=== PATIENT | male | born 1945 | race African-American/Black ===

== ENCOUNTER → 2016-12-02 | Outpatient (CLI) | payer MEDICARE, BC ==
[2016-12-02 11:55] LABS: Calcium 9.5 mg/dL (8.4-10.2); Potassium 4.5 mmol/L (3.5-5.1); Total Bilirubin 0.9 mg/dL (0.2-1.3)
== END | disposition home or self-care (01) ==
LOC: LABWHC1 10:45
PROVIDERS: ATTEND Internal Medicine Endocrinology, Diabetes & Metabolism
DX: E11.65 Type 2 diabetes mellitus with hyperglycemia (principal)
CPT/HCPCS: 36415; 80053; 80061; 82043

== ENCOUNTER → 2016-12-29 | Outpatient (CLI) | payer MEDICARE, BC ==
[2016-12-29 08:55] LABS: Calcium 9.4 mg/dL (8.4-10.2); Potassium 4.3 mmol/L (3.5-5.1); Total Bilirubin 0.8 mg/dL (0.2-1.3); Total Protein 8.1 g/dL (6.3-8.2)
== END | disposition home or self-care (01) ==
LOC: LABWHC1 08:02
PROVIDERS: ATTEND Internal Medicine Endocrinology, Diabetes & Metabolism
DX: E11.65 Type 2 diabetes mellitus with hyperglycemia (principal)
CPT/HCPCS: 36415; 80053; 80061; 82043

== ENCOUNTER 2018-06-09 13:53 | Emergency (ER) | payer MEDICARE ==
[2018-06-09 14:04] VITALS: RESP 18
--- NOTE | 2018-06-09 16:23 | ED ---
General Adult HPI - General Source: patient, family, RN notes reviewed Mode of arrival: ambulatory Limitations: no limitations <Esau Smith - Last Filed: 06/09/18 17:55> <Terry Harper - Last Filed: 06/09/18 18:00> - General Chief complaint: Recheck/Abnormal Lab/Rx Stated complaint: leg swelling Time Seen by Provider: 06/09/18 15:58 - History of Present Illness Initial comments: This is a 72-year-old male presents emergency Department with chief complaint of bilateral leg swelling. Patient states she's had progressively worsening symptoms over the last several months has been seen PCP for this. 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 He currently takes Lasix 40 mg once daily. Does have some shortness of breath but denies any orthopnea. Patient states that he is concerned about his legs as he recently has had open blisters and sores. Patient states he is a known diabetic. Patient states that he attempted to get to his primary care physician but was unable to and advised to come emergency department. Patient states that he does have some renal dysfunction and CHF. Patient denies any chest pain, headache or dizziness. Patient reports no fever no chills (Esau Smith) - Related Data Home Medications Medication Instructions Recorded Confirmed Atorvastatin [Lipitor] 40 mg PO DAILY 11/13/16 06/09/18 Fenofibrate Nanocrystallized 145 mg PO DAILY 11/13/16 06/09/18 [Tricor] Levothyroxine Sodium [Synthroid] 75 mcg PO DAILY 11/13/16 06/09/18 Tamsulosin HCl [Flomax] 0.4 mg PO DAILY 11/13/16 06/09/18 Clotrimazole/Betamethasone Dip 1 applic TOPICAL BID 06/09/18 06/09/18 [Lotrisone Cream] Insulin NPH Hum/Reg Insulin Hm 40 unit SQ HS 06/09/18 06/09/18 [humuLIN 70/30 Kwikpen] Insulin NPH Hum/Reg Insulin Hm 58 unit SQ AC-BRKFST 06/09/18 06/09/18 [humuLIN 70/30 Kwikpen] Lansoprazole 30 mg PO DAILY 06/09/18 06/09/18 Losartan/Hydrochlorothiazide 1 tab PO DAILY 06/09/18 06/09/18 [Losartan-Hctz 100-25 mg Tab] Potassium Chloride [Klor-Con 20] 20 meq PO DAILY 06/09/18 06/09/18 metFORMIN HCL [metFORMIN HCL ER] 1,000 mg PO AC-SUPPER 06/09/18 06/09/18 Previous Rx's Medication Instructions Recorded Furosemide [Lasix] 40 mg PO DAILY #60 tab 11/16/16 Cephalexin [Keflex] 500 mg PO Q6HR #40 cap 06/09/18 Allergies Allergy/AdvReac Type Severity Reaction Status Date / Time No Known Allergies Allergy Verified 06/09/18 15:53 Review of Systems ROS Other: All systems not noted in ROS Statement are negative. <Esau Smith - Last Filed: 06/09/18 17:55> ROS Other: All systems not noted in ROS Statement are negative. <Terry Harper - Last Filed: 06/09/18 18:00> ROS Statement: Those systems with pertinent positive or pertinent negative responses have been documented in the HPI. Past Medical History Past Medical History: Hyperlipidemia, Hypertension, Thyroid Disorder History of Any Multi-Drug Resistant Organisms: None Reported Past Surgical History: No Surgical Hx Reported Past Psychological History: No Psychological Hx Reported Smoking Status: Former smoker Past Alcohol Use History: None Reported Past Drug Use History: None Reported <Esau Smith - Last Filed: 06/09/18 17:55> General Exam Limitations: no limitations General appearance: alert, in no apparent distress Head exam: Present: atraumatic, normocephalic, normal inspection Eye exam: Present: normal appearance, PERRL, EOMI. Absent: scleral icterus, conjunctival injection, periorbital swelling Neck exam: Present: normal inspection, full ROM. Absent: tenderness, meningismus, lymphadenopathy Respiratory exam: Present: normal lung sounds bilaterally. Absent: respiratory distress, wheezes, rales, rhonchi, stridor Cardiovascular Exam: Present: regular rate, normal rhythm, normal heart sounds. Absent: systolic murmur, diastolic murmur, rubs, gallop, clicks GI/Abdominal exam: Present: soft, normal bowel sounds. Absent: distended, tenderness, guarding, rebound, rigid Extremities exam: Present: pedal edema, other (Extensive lower extremity edema, legs are from with palpation there are open sores and blisters noted pain pedal pulses equal bilaterally) Skin exam: Present: warm, dry, intact, normal color. Absent: rash <Esau Smith - Last Filed: 06/09/18 17:55> Vital Signs 06/09/18 13:59 Temperature 97.9 F Pulse Rate 91 Respiratory 18 Rate Blood Pressure 170/71 O2 Sat by Pulse 99 Oximetry Medical Decision Making - Lab Data Result diagrams: 06/09/18 16:12 06/09/18 16:12 <Esau Smith - Last Filed: 06/09/18 17:55> - Lab Data Result diagrams: 06/09/18 16:12 06/09/18 16:12 <Terry Harper - Last Filed: 06/09/18 18:00> - Medical Decision Making This is a 72-year-old male presented for leg swelling. Patient is found to have extensive edema, mildly elevated BNP and new onset 8.. Patient has known renal failure and is currently being referred to nephrology and cardiology. Patient was offered admission for IV antibiotics, evaluation and nephrology evaluation. Patient is refusing admission. Patient is requesting antibiotics for his legs. (Esau Smith) Patient was evaluated by myself, Dr. Harper. Patient resting comfortably in bed. Patient and family are updated on multiple concerns. This includes new- onset atrial fibrillation and indeterminate troponin. As well as edema and urinary tract infection. Patient is advised admission for cardiology evaluation , possible anticoagulation, repeat heart testing and antibiotics as well as diuresis. Patient refuses admission. Family members are present. They agree patient is able to make his own decisions. Patient refuses admission and will leave AGAINST MEDICAL ADVICE. Patient states he is only here to receive antibiotics for his leg sores. Patient does have moderate bilateral edema with mild ulcerations in several spots. There is no obvious infection of the leg over patient can benefit from antibiotics with evidence of urinary tract infection. Patient and family are agreeable to close follow-up with primary care physician and cardiology. (Terry Harper) - Lab Data Lab Results 06/09/18 06/09/18 06/09/18 Range/Units 16:12 16:12 16:12 WBC 6.5 (3.8-10.6) k/uL RBC 3.70 L (4.30-5.90) m/uL Hgb 10.4 L (13.0-17.5) gm/dL Hct 33.3 L (39.0-53.0) % MCV 90.1 (80.0-100.0) fL MCH 28.2 (25.0-35.0) pg MCHC 31.3 (31.0-37.0) g/dL RDW 17.5 H (11.5-15.5) % Plt Count 331 (150-450) k/uL Neutrophils % 64 % Lymphocytes % 22 % Monocytes % 6 % Eosinophils % 5 % Basophils % 2 % Neutrophils # 4.1 (1.3-7.7) k/uL Lymphocytes # 1.4 (1.0-4.8) k/uL Monocytes # 0.4 (0-1.0) k/uL Eosinophils # 0.3 (0-0.7) k/uL Basophils # 0.1 (0-0.2) k/uL Hypochromasia Moderate Anisocytosis Slight Sodium 143 (137-145) mmol/L Potassium 4.8 (3.5-5.1) mmol/L Chloride 107 (98-107) mmol/L Carbon Dioxide 25 (22-30) mmol/L Anion Gap 11 mmol/L BUN 51 H (9-20) mg/dL Creatinine 2.50 H (0.66-1.25) mg/dL Est GFR (CKD-EPI)AfAm 29 (>60 ml/min/1.73 sqM) Est GFR (CKD-EPI)NonAf 25 (>60 ml/min/1.73 sqM) Glucose 119 H (74-99) mg/dL Uric Acid 7.9 (3.5-8.5) mg/dL Calcium 9.4 (8.4-10.2) mg/dL Phosphorus 3.0 (2.5-4.5) mg/dL Magnesium 1.7 (1.6-2.3) mg/dL Total Bilirubin 1.9 H (0.2-1.3) mg/dL AST 151 H (17-59) U/L ALT 148 H (21-72) U/L Alkaline Phosphatase 140 H (38-126) U/L Troponin I (0.000-0.034) ng/mL NT-Pro-B Natriuret Pep 1390 pg/mL Total Protein 7.3 (6.3-8.2) g/dL Albumin 3.8 (3.5-5.0) g/dL Urine Color Urine Appearance (Clear) Urine pH (5.0-8.0) Ur Specific [place] (1.001-1.035) Urine Protein (Negative) Urine Glucose (UA) (Negative) Urine Ketones (Negative) Urine Blood (Negative) Urine Nitrite (Negative) Urine Bilirubin (Negative) Urine Urobilinogen (<2.0) mg/dL Ur Leukocyte Esterase (Negative) Urine RBC (0-5) /hpf Urine WBC (0-5) /hpf Urine WBC Clumps (None) /hpf Urine Bacteria (None) /hpf Cellular Casts (0) /lpf 06/09/18 06/09/18 Range/Units 16:12 17:20 WBC (3.8-10.6) k/uL RBC (4.30-5.90) m/uL Hgb (13.0-17.5) gm/dL Hct (39.0-53.0) % MCV (80.0-100.0) fL MCH (25.0-35.0) pg MCHC (31.0-37.0) g/dL RDW (11.5-15.5) % Plt Count (150-450) k/uL Neutrophils % % Lymphocytes % % Monocytes % % Eosinophils % % Basophils % % Neutrophils # (1.3-7.7) k/uL Lymphocytes # (1.0-4.8) k/uL Monocytes # (0-1.0) k/uL Eosinophils # (0-0.7) k/uL Basophils # (0-0.2) k/uL Hypochromasia Anisocytosis Sodium (137-145) mmol/L Potassium (3.5-5.1) mmol/L Chloride (98-107) mmol/L Carbon Dioxide (22-30) mmol/L Anion Gap mmol/L BUN (9-20) mg/dL Creatinine (0.66-1.25) mg/dL Est GFR (CKD-EPI)AfAm (>60 ml/min/1.73 sqM) Est GFR (CKD-EPI)NonAf (>60 ml/min/1.73 sqM) Glucose (74-99) mg/dL Uric Acid (3.5-8.5) mg/dL Calcium (8.4-10.2) mg/dL Phosphorus (2.5-4.5) mg/dL Magnesium (1.6-2.3) mg/dL Total Bilirubin (0.2-1.3) mg/dL AST (17-59) U/L ALT (21-72) U/L Alkaline Phosphatase (38-126) U/L Troponin I 0.076 H* (0.000-0.034) ng/mL NT-Pro-B Natriuret Pep pg/mL Total Protein (6.3-8.2) g/dL Albumin (3.5-5.0) g/dL Urine Color Yellow Urine Appearance Turbid (Clear) Urine pH 7.5 (5.0-8.0) Ur Specific [place] 1.012 (1.001-1.035) Urine Protein 3+ H (Negative) Urine Glucose (UA) Negative (Negative) Urine Ketones Negative (Negative) Urine Blood Moderate H (Negative) Urine Nitrite Negative (Negative) Urine Bilirubin Negative (Negative) Urine Urobilinogen 3.0 (<2.0) mg/dL Ur Leukocyte Esterase Large H (Negative) Urine RBC 8 H (0-5) /hpf Urine WBC 82 H (0-5) /hpf Urine WBC Clumps Many H (None) /hpf Urine Bacteria Many H (None) /hpf Cellular Casts 38 (0) /lpf Disposition Time of Disposition: 17:57 <Esau Smith - Last Filed: 06/09/18 17:55> <Terry Harper - Last Filed: 06/09/18 18:00> Clinical Impression: Bilateral lower extremity edema, Open wound, lower leg, A-fib, CHF (congestive heart failure), Chronic renal failure Disposition: Left Against Medical Advice Condition: Stable Instructions: Cellulitis (ED) Additional Instructions: Please return to the Emergency Department if symptoms worsen or any other concerns. Prescriptions: Cephalexin [Keflex] 500 mg PO Q6HR #40 cap Referrals: Harris Vidales DO [Primary Care Provider] - 1-2 days Rajesh Simmons MD [STAFF PHYSICIAN] - 1-2 days
[2018-06-09 16:34] LABS: Anisocytosis Slight; Basophils # (A) 0.1 k/uL (0-0.2); Basophils % (A) 2 %; Eosinophils # (A) 0.3 k/uL (0-0.7); Eosinophils % (A) 5 %; HCT 33.3 % (39.0-53.0); HGB 10.4 gm/dL (13.0-17.5); Hypochromasia Moderate; Lymphocytes # (A) 1.4 k/uL (1.0-4.8); Lymphocytes % (A) 22 %; MCH 28.2 pg (25.0-35.0); MCHC 31.3 g/dL (31.0-37.0); MCV 90.1 fL (80.0-100.0); Mean Platelet Volume 8.9; Monocytes # (A) 0.4 k/uL (0-1.0); Monocytes % (A) 6 %; Neutrophils # (A) 4.1 k/uL (1.3-7.7); Neutrophils % (A) 64 %; Platelet Count 331 k/uL (150-450); RDW 17.5 % (11.5-15.5); WBC 6.5 k/uL (3.8-10.6)
[2018-06-09 16:36] LABS: Albumin 3.8 g/dL (3.5-5.0); Calcium 9.4 mg/dL (8.4-10.2); Magnesium 1.7 mg/dL (1.6-2.3); Potassium 4.8 mmol/L (3.5-5.1); Total Bilirubin 1.9 mg/dL (0.2-1.3); Total Protein 7.3 g/dL (6.3-8.2); Uric Acid 7.9 mg/dL (3.5-8.5)
--- NOTE | 2018-06-09 16:44 | XR ---
EXAMINATION TYPE: XR chest 2V DATE OF EXAM: 06/09/2018 COMPARISON: Chest x-ray November 13, 2016. HISTORY: Shortness of breath TECHNIQUE: Frontal and lateral views of the chest are obtained. FINDINGS: There is no focal air space opacity, pleural effusion, or pneumothorax seen. The cardiac silhouette size is enlarged. The osseous structures are intact. IMPRESSION: Cardiomegaly without acute pulmonary process.
--- NOTE | 2018-06-09 17:29 | US ---
EXAMINATION TYPE: US venous doppler duplex LE DATE OF EXAM: 06/09/2018 5:09 PM COMPARISON: US CLINICAL HISTORY: Increasing bilateral leg edema and present x 7 months . SIDE PERFORMED: Bilateral TECHNIQUE: The lower extremity deep venous system is examined utilizing real time linear array sonog lc with graded compression, doppler sonography and color-flow sonography. VESSELS IMAGED: Common Femoral Vein Deep Femoral Vein Greater Saphenous Vein * Femoral Vein Popliteal Vein Small Saphenous Vein * Proximal Calf Veins (* superficial vessels) Pulsatile Venous Doppler waveforms are noted bilaterally and suggests Congestive Heart Failure. Edema channels are noted anteriorly from popliteal fossa and distally, and bilaterally. Right Leg: Negative for DVT Left Leg: Negative for DVT IMPRESSION: Negative exam. No evidence of deep venous thrombosis in both legs.
[2018-06-09 17:35] LABS: Appearance,Urine Turbid (Clear); Bacteria,Urine Many /hpf; Bilirubin,Urine Negative (Negative); Blood,Urine Moderate (Negative); Cellular Casts,Urine 38 /lpf (0); Color,Urine Yellow; Glucose,Urine (UA) Negative (Negative); Ketones,Urine Negative (Negative); Leukocyte Esterase,Urine Large (Negative); Nitrite,Urine Negative (Negative); PH, Urine 7.5 (5.0-8.0); Protein,Urine 3+ (Negative); RBC,Urine 8 /hpf (0-5); Specific Gravity,Urine 1.012 (1.001-1.035); WBC,Urine 82 /hpf (0-5)
[2018-06-09] MEDS ORDERED: FUROSEMIDE 10 MG/ML 4 ML VIAL IV STA (17:54)
[2018-06-09 18:15] VITALS: BP 175/73; PULSE 75; TEMP 97
== END 2018-06-09 18:14 | disposition left against medical advice (07) ==
LOC: EC 13:53
DX: S81.802A Unspecified open wound, left lower leg, initial encounter (principal); S81.801A Unspecified open wound, right lower leg, initial encounter; M79.89 Other specified soft tissue disorders; I48.91 Unspecified atrial fibrillation; I13.0 Hypertensive heart and chronic kidney disease with heart failure and stage 1 through stage 4 chronic kidney disease, or unspecified chronic kidney disease; N18.9 Chronic kidney disease, unspecified; I50.9 Heart failure, unspecified; E78.5 Hyperlipidemia, unspecified; E07.9 Disorder of thyroid, unspecified; Z87.891 Personal history of nicotine dependence; Z79.4 Long term (current) use of insulin; Z79.899 Other long term (current) drug therapy
CPT/HCPCS: 99284 ×2; 96374 ×2; 36415; 83880; 80053; 83735; 84100; 84550; 84484; 85025; 81001; 71046; 93970; J1940

== ENCOUNTER → 2018-07-01 | Outpatient (CLI) | payer MEDICARE ==
--- NOTE | 2018-07-01 16:56 | US ---
EXAMINATION TYPE: US kidneys/renal and bladder DATE OF EXAM: 07/01/2018 COMPARISON: US CLINICAL HISTORY: CKD Stage IV, N18.4. EXAM MEASUREMENTS: Right Kidney: 12.0 x 8.3 x 5.1 cm Left Kidney: 12.0 x 6.6 x 6.4 cm Post Void Residual Volume: 428.4 mL Urinary bladder is sonolucent. Posterior wall appears normal. Right Kidney: No hydronephrosis or masses seen Left Kidney: No hydronephrosis or masses seen Bladder: overly distended Bilateral Jets seen: no, only small left ureteral jet was seen Normal Post Void Residual: no, as > 50ml IMPRESSION: 1. Normal retroperitoneal ultrasound
== END | disposition home or self-care (01) ==
LOC: RADUSWWP 08:44
PROVIDERS: ATTEND Internal Medicine
DX: N18.4 Chronic kidney disease, stage 4 (severe) (principal)
CPT/HCPCS: 76770

== ENCOUNTER → 2018-07-13 | Outpatient (CLI) | payer MEDICARE ==
[2018-07-13 11:37] LABS: Appearance,Urine Turbid (Clear); Bacteria,Urine Many /hpf; Bilirubin,Urine Negative (Negative); Blood,Urine Moderate (Negative); Color,Urine Yellow; Glucose,Urine (UA) Negative (Negative); Ketones,Urine Negative (Negative); Leukocyte Esterase,Urine Large (Negative); Nitrite,Urine Negative (Negative); PH, Urine 7.5 (5.0-8.0); Protein,Urine 3+ (Negative); RBC,Urine 27 /hpf (0-5); Specific Gravity,Urine 1.015 (1.001-1.035); WBC,Urine >182 /hpf (0-5)
[2018-07-13 11:42] LABS: Calcium 9.2 mg/dL (8.4-10.2); Magnesium 1.7 mg/dL (1.6-2.3); Potassium 4.8 mmol/L (3.5-5.1); Uric Acid 8.1 mg/dL (3.5-8.5)
[2018-07-13 11:49] LABS: Anisocytosis Slight; Basophils # (A) 0.1 k/uL (0-0.2); Basophils % (A) 1 %; Eosinophils # (A) 0.2 k/uL (0-0.7); Eosinophils % (A) 4 %; HCT 30.7 % (39.0-53.0); HGB 9.6 gm/dL (13.0-17.5); Hypochromasia Marked; Lymphocytes % (A) 16 %; MCH 26.9 pg (25.0-35.0); MCHC 31.2 g/dL (31.0-37.0); MCV 86.3 fL (80.0-100.0); Mean Platelet Volume 8.3; Monocytes # (A) 0.5 k/uL (0-1.0); Monocytes % (A) 7 %; Neutrophils # (A) 4.6 k/uL (1.3-7.7); Neutrophils % (A) 70 %; Platelet Count 305 k/uL (150-450); RBC 3.56 m/uL (4.30-5.90); RDW 16.9 % (11.5-15.5); WBC 6.5 k/uL (3.8-10.6)
[2018-07-13 16:32] LABS: Iron Saturation 10.49 (15.00-50.00)
[2018-07-13 17:30] LABS: Parathyroid Hormone Intact 130.8 pg/mL (14.0-72.0)
== END | disposition home or self-care (01) ==
LOC: LABWHC1 10:37
PROVIDERS: ATTEND Internal Medicine
DX: D64.9 Anemia, unspecified (principal); E55.9 Vitamin D deficiency, unspecified; N25.81 Secondary hyperparathyroidism of renal origin; M10.9 Gout, unspecified; N39.0 Urinary tract infection, site not specified
CPT/HCPCS: 36415; 80048; 81001; 83540; 83550; 83735; 83970; 84100; 84550; 85025

== ENCOUNTER → 2018-12-23 | Outpatient (CLI) | payer MEDICARE ==
[2018-12-23 11:02] LABS: Anisocytosis Slight; HCT 29.9 % (39.0-53.0); HGB 9.6 gm/dL (13.0-17.5); Hypochromasia Slight; MCH 29.9 pg (25.0-35.0); MCV 93.2 fL (80.0-100.0); Mean Platelet Volume 8.8; Platelet Count 220 k/uL (150-450); RDW 16.2 % (11.5-15.5); WBC 6.5 k/uL (3.8-10.6)
[2018-12-23 14:44] LABS: Erythrocyte Sedimentation Rate 57 mm/hr (0-15)
[2018-12-23 16:15] LABS: Rheumatoid Factor 13 IU/mL (0-15)
[2018-12-23 16:26] LABS: Protein, Total 6.7 g/dL (6.2-8.2); Vitamin D 25 Hydroxy 36.9 ng/mL (30.0-100.0)
[2018-12-23 16:27] LABS: Albumin/Globulin Ratio 1.48 (1.20-2.10); Anion Gap 9.1 mmol/L (4.00-12.00); Calcium 9.2 mg/dL (8.7-10.3); Carbon Dioxide 25.9 mmol/L (21.6-31.8); Globulin 2.7 g/dL (1.6-3.3); Phosphorus 4.2 mg/dL (2.4-5.1); Potassium 4.6 mmol/L (3.5-5.5); Total Protein 6.7 g/dL (6.2-8.2)
[2018-12-23 16:55] LABS: DNA Double-Stranded POSITIVE (NEGATIVE)
[2018-12-23 17:02] LABS: Parathyroid Hormone Intact 152.6 pg/mL (14.0-72.0)
[2018-12-23 21:05] LABS: Creatinine,Urine Random 47.4 mg/dL
[2018-12-23 21:10] LABS: Total Protein,Urine Random 81.5 mg/dL (0.0-13.5)
[2018-12-23 21:59] LABS: Hepatitis B Surface AB- Quant 3.5 mIU/mL; Hepatitis C IgG Antibody Non-Reactive (Non-Reactive)
[2018-12-24 12:46] LABS: ANA Pattern Homogeneous
[2018-12-24 13:04] LABS: Anti-Glomerular Basement Memb 4 UNITS (0-20)
[2018-12-24 13:51] LABS: C-ANCA <1:20 Titer (<1:20); P-ANCA <1:20 Titer (<1:20)
[2018-12-24 13:56] LABS: Albumin 3.48 g/dL (3.80-4.90); Gamma Globulin 1.28 g/dL (0.70-1.50)
== END | disposition home or self-care (01) ==
LOC: LABWHC1 09:38
PROVIDERS: ATTEND Internal Medicine
DX: E55.9 Vitamin D deficiency, unspecified (principal); E61.1 Iron deficiency; N18.4 Chronic kidney disease, stage 4 (severe); D63.1 Anemia in chronic kidney disease
CPT/HCPCS: 36415; 80053; 82306; 82570; 83516; 83970; 84100; 84156; 84165; 84166; 85027; 85652; 86038; 86039; 86160; 86225; 86255; 86335; 86431; 86706; 86803; 87340

== ENCOUNTER → 2018-12-24 | Outpatient (CLI) | payer MEDICARE ==
--- NOTE | 2018-12-24 07:30 | US ---
EXAMINATION TYPE: US venous doppler duplex LE LT DATE OF EXAM: 12/24/2018 7:15 AM COMPARISON: NONE CLINICAL HISTORY: I82.401 EDEMA LT LEG. Left leg swelling x 1 year SIDE PERFORMED: Left TECHNIQUE: The lower extremity deep venous system is examined utilizing real time linear array sonog lc with graded compression, doppler sonography and color-flow sonography. VESSELS IMAGED: External Iliac Vein (EIV) Common Femoral Vein Deep Femoral Vein Greater Saphenous Vein * Femoral Vein Popliteal Vein Small Saphenous Vein * Proximal Calf Veins (* superficial vessels) Left Leg: Appears negative for DVT IMPRESSION: No evidence for DVT at this time.
== END | disposition home or self-care (01) ==
LOC: RADUSWWP 06:52
PROVIDERS: ATTEND Internal Medicine
DX: I82.401 Acute embolism and thrombosis of unspecified deep veins of right lower extremity (principal)

== ENCOUNTER → 2018-12-29 | Outpatient (CLI) | payer MEDICARE ==
[2018-12-29 11:46] LABS: Reticulocyte % 1.6 % (0.5-2.0)
[2018-12-29 15:58] LABS: Iron Saturation 20.37 (15.00-50.00)
[2018-12-29 21:42] LABS: Hemoglobin A1C 8.2 % (4.0-6.0)
== END | disposition home or self-care (01) ==
LOC: LABWHC1 10:02
PROVIDERS: ATTEND Family Medicine
DX: E11.9 Type 2 diabetes mellitus without complications (principal); N19 Unspecified kidney failure
CPT/HCPCS: 36415; 82043; 82164; 82570; 82728; 83036; 83540; 83550; 85045; 86431

== ENCOUNTER 2019-11-04 02:17 | Inpatient (IN) | payer MEDICARE ==
[2019-11-04] MEDS ORDERED: MORPHINE SULFATE 4 MG/ML SYRINGE IV STA (02:52)
--- NOTE | 2019-11-04 02:54 | ED ---
SOB HPI - General Chief Complaint: Shortness of Breath Stated Complaint: Diff Breathing Time Seen by Provider: 11/04/19 02:35 Source: EMS Mode of arrival: EMS Limitations: no limitations - History of Present Illness Initial Comments: This patient is a 74-year-old man who presents with complaint of dyspnea. States that this been coming on and getting worse over the course of tonight. Patient denies fever or chills. Denies chest pain but states that he does have some right-sided mid back pain. He notes the pain gets worse with lying on that side of his back or certain position. No diaphoresis, no nausea or vomiting. MD Complaint: shortness of breath -: hour(s) Radiation: back Severity: moderate Quality: aching Consistency: constant Improves With: nothing Worsens With: movement Known History Of: congestive heart failure, other (Cirrhosis and ascites) - Related Data Home Oxygen Therapy: No Home Medications Medication Instructions Recorded Confirmed Atorvastatin [Lipitor] 40 mg PO DAILY 11/13/16 06/09/18 Fenofibrate Nanocrystallized 145 mg PO DAILY 11/13/16 06/09/18 [Tricor] Levothyroxine Sodium [Synthroid] 75 mcg PO DAILY 11/13/16 06/09/18 Tamsulosin HCl [Flomax] 0.4 mg PO DAILY 11/13/16 06/09/18 Clotrimazole/Betamethasone Dip 1 applic TOPICAL BID 06/09/18 06/09/18 [Lotrisone Cream] Insulin NPH Hum/Reg Insulin Hm 40 unit SQ HS 06/09/18 06/09/18 [humuLIN 70/30 Kwikpen] Insulin NPH Hum/Reg Insulin Hm 58 unit SQ AC-BRKFST 06/09/18 06/09/18 [humuLIN 70/30 Kwikpen] Lansoprazole 30 mg PO DAILY 06/09/18 06/09/18 Losartan/Hydrochlorothiazide 1 tab PO DAILY 06/09/18 06/09/18 [Losartan-Hctz 100-25 mg Tab] Potassium Chloride [Klor-Con 20] 20 meq PO DAILY 06/09/18 06/09/18 metFORMIN HCL [metFORMIN HCL ER] 1,000 mg PO AC-SUPPER 06/09/18 06/09/18 Previous Rx's Medication Instructions Recorded Furosemide [Lasix] 40 mg PO DAILY #60 tab 11/16/16 Cephalexin [Keflex] 500 mg PO Q6HR #40 cap 06/09/18 Allergies Allergy/AdvReac Type Severity Reaction Status Date / Time No Known Allergies Allergy Verified 11/04/19 02:22 Review of Systems ROS Statement: Those systems with pertinent positive or pertinent negative responses have been documented in the HPI. ROS Other: All systems not noted in ROS Statement are negative. Constitutional: Denies: fever, chills Respiratory: Reports: dyspnea. Denies: cough, wheezes Cardiovascular: Denies: chest pain, palpitations, orthopnea, edema, syncope Gastrointestinal: Denies: abdominal pain, vomiting, diarrhea, melena, hematochezia Genitourinary: Reports: hematuria. Denies: dysuria Musculoskeletal: Reports: as per HPI, back pain Skin: Denies: rash Neurological: Denies: headache, weakness, numbness Past Medical History Past Medical History: Dialysis, Hyperlipidemia, Hypertension, Thyroid Disorder History of Any Multi-Drug Resistant Organisms: None Reported Past Surgical History: No Surgical Hx Reported Past Psychological History: No Psychological Hx Reported Smoking Status: Former smoker Past Alcohol Use History: None Reported Past Drug Use History: None Reported General Exam Limitations: no limitations General appearance: alert, in no apparent distress Head exam: Present: atraumatic, normocephalic Eye exam: Present: normal appearance. Absent: scleral icterus, conjunctival injection ENT exam: Present: normal oropharynx Respiratory exam: Present: normal lung sounds bilaterally. Absent: respiratory distress, wheezes, rales, rhonchi, stridor Cardiovascular Exam: Present: regular rate, normal rhythm, normal heart sounds. Absent: systolic murmur, diastolic murmur, rubs, gallop GI/Abdominal exam: Present: soft. Absent: distended, tenderness, guarding, rebound, mass Rectal exam: Present: normal inspection, normal rectal tone. Absent: black stool, bloody stool, fecal impaction, hemorrhoids, mass, tenderness Extremities exam: Present: normal inspection, normal capillary refill. Absent: pedal edema, calf tenderness Back exam: Present: normal inspection. Absent: CVA tenderness (R), CVA tenderness (L) Neurological exam: Present: alert Skin exam: Present: warm, dry, intact, normal color. Absent: rash Course Vital Signs 11/04/19 11/04/19 11/04/19 02:19 03:00 03:30 Temperature 97.6 F Pulse Rate 79 80 75 Respiratory 20 20 22 Rate Blood Pressure 157/69 156/70 134/49 O2 Sat by Pulse 95 96 97 Oximetry 11/04/19 11/04/19 11/04/19 04:00 04:30 05:00 Temperature Pulse Rate 76 73 72 Respiratory 23 23 22 Rate Blood Pressure 134/49 161/76 168/81 O2 Sat by Pulse 98 98 100 Oximetry 11/04/19 11/04/19 06:26 06:36 Temperature 97.5 F L 97.5 F L Pulse Rate 72 72 Respiratory 20 20 Rate Blood Pressure 151/66 142/69 O2 Sat by Pulse 98 96 Oximetry Medical Decision Making - Lab Data Result diagrams: 11/04/19 03:43 11/04/19 02:46 Lab Results 11/04/19 11/04/19 11/04/19 Range/Units 02:46 02:46 02:46 WBC 8.5 (3.8-10.6) k/uL RBC 2.26 L (4.30-5.90) m/uL Hgb 6.9 L* D (13.0-17.5) gm/dL Hct 22.4 L (39.0-53.0) % MCV 98.9 (80.0-100.0) fL MCH 30.6 (25.0-35.0) pg MCHC 30.9 L (31.0-37.0) g/dL RDW 15.1 (11.5-15.5) % Plt Count 321 (150-450) k/uL Neutrophils % 68 % Lymphocytes % 14 % Monocytes % 9 % Eosinophils % 5 % Basophils % 1 % Neutrophils # 5.8 (1.3-7.7) k/uL Lymphocytes # 1.2 (1.0-4.8) k/uL Monocytes # 0.8 (0-1.0) k/uL Eosinophils # 0.5 (0-0.7) k/uL Basophils # 0.1 (0-0.2) k/uL Hypochromasia Moderate Macrocytosis Slight PT (9.0-12.0) sec INR (<1.2) APTT (22.0-30.0) sec Sodium 137 (137-145) mmol/L Potassium 5.2 H (3.5-5.1) mmol/L Chloride 102 (98-107) mmol/L Carbon Dioxide 19 L (22-30) mmol/L Anion Gap 16 mmol/L BUN 83 H (9-20) mg/dL Creatinine 5.95 H (0.66-1.25) mg/dL Est GFR (CKD-EPI)AfAm 10 (>60 ml/min/1.73 sqM) Est GFR (CKD-EPI)NonAf 9 (>60 ml/min/1.73 sqM) Glucose 310 H (74-99) mg/dL Calcium 9.4 (8.4-10.2) mg/dL Total Bilirubin 0.5 (0.2-1.3) mg/dL AST 20 (17-59) U/L ALT 21 (21-72) U/L Alkaline Phosphatase 55 (38-126) U/L Troponin I (0.000-0.034) ng/mL NT-Pro-B Natriuret Pep 1550 pg/mL Total Protein 6.9 (6.3-8.2) g/dL Albumin 4.2 (3.5-5.0) g/dL Amylase (30-110) U/L Lipase (23-300) U/L Stool Occult Blood (Negative) Blood Type Blood Type Recheck Bld Type Recheck Status Antibody Screen Crossmatch Spec Expiration Date 11/04/19 11/04/19 11/04/19 Range/Units 02:46 02:46 02:46 WBC (3.8-10.6) k/uL RBC (4.30-5.90) m/uL Hgb (13.0-17.5) gm/dL Hct (39.0-53.0) % MCV (80.0-100.0) fL MCH (25.0-35.0) pg MCHC (31.0-37.0) g/dL RDW (11.5-15.5) % Plt Count (150-450) k/uL Neutrophils % % Lymphocytes % % Monocytes % % Eosinophils % % Basophils % % Neutrophils # (1.3-7.7) k/uL Lymphocytes # (1.0-4.8) k/uL Monocytes # (0-1.0) k/uL Eosinophils # (0-0.7) k/uL Basophils # (0-0.2) k/uL Hypochromasia Macrocytosis PT 12.2 H (9.0-12.0) sec INR 1.2 H (<1.2) APTT 23.0 (22.0-30.0) sec Sodium (137-145) mmol/L Potassium (3.5-5.1) mmol/L Chloride (98-107) mmol/L Carbon Dioxide (22-30) mmol/L Anion Gap mmol/L BUN (9-20) mg/dL Creatinine (0.66-1.25) mg/dL Est GFR (CKD-EPI)AfAm (>60 ml/min/1.73 sqM) Est GFR (CKD-EPI)NonAf (>60 ml/min/1.73 sqM) Glucose (74-99) mg/dL Calcium (8.4-10.2) mg/dL Total Bilirubin (0.2-1.3) mg/dL AST (17-59) U/L ALT (21-72) U/L Alkaline Phosphatase (38-126) U/L Troponin I 0.049 H* (0.000-0.034) ng/mL NT-Pro-B Natriuret Pep pg/mL Total Protein (6.3-8.2) g/dL Albumin (3.5-5.0) g/dL Amylase 45 (30-110) U/L Lipase 156 (23-300) U/L Stool Occult Blood (Negative) Blood Type Blood Type Recheck Bld Type Recheck Status Antibody Screen Crossmatch Spec Expiration Date 11/04/19 11/04/19 11/04/19 Range/Units 03:43 03:43 06:40 WBC 9.4 (3.8-10.6) k/uL RBC 2.25 L (4.30-5.90) m/uL Hgb 7.0 L (13.0-17.5) gm/dL Hct 21.6 L (39.0-53.0) % MCV 96.1 (80.0-100.0) fL MCH 31.0 (25.0-35.0) pg MCHC 32.3 (31.0-37.0) g/dL RDW 15.2 (11.5-15.5) % Plt Count 296 (150-450) k/uL Neutrophils % % Lymphocytes % % Monocytes % % Eosinophils % % Basophils % % Neutrophils # (1.3-7.7) k/uL Lymphocytes # (1.0-4.8) k/uL Monocytes # (0-1.0) k/uL Eosinophils # (0-0.7) k/uL Basophils # (0-0.2) k/uL Hypochromasia Slight Macrocytosis PT (9.0-12.0) sec INR (<1.2) APTT (22.0-30.0) sec Sodium (137-145) mmol/L Potassium (3.5-5.1) mmol/L Chloride (98-107) mmol/L Carbon Dioxide (22-30) mmol/L Anion Gap mmol/L BUN (9-20) mg/dL Creatinine (0.66-1.25) mg/dL Est GFR (CKD-EPI)AfAm (>60 ml/min/1.73 sqM) Est GFR (CKD-EPI)NonAf (>60 ml/min/1.73 sqM) Glucose (74-99) mg/dL Calcium (8.4-10.2) mg/dL Total Bilirubin (0.2-1.3) mg/dL AST (17-59) U/L ALT (21-72) U/L Alkaline Phosphatase (38-126) U/L Troponin I (0.000-0.034) ng/mL NT-Pro-B Natriuret Pep pg/mL Total Protein (6.3-8.2) g/dL Albumin (3.5-5.0) g/dL Amylase (30-110) U/L Lipase (23-300) U/L Stool Occult Blood Negative (Negative) Blood Type O Positive Blood Type Recheck O Pos Bld Type Recheck Status No Antibody Screen NEGATIVE Crossmatch See Detail Spec Expiration Date 11/07/2019 - 5820 - EKG Data -: EKG Interpreted by Pa EKG shows normal: sinus rhythm, axis (Normal), intervals (MD interval 248 ms, prolonged consistent with a first-degree AV block. QTC 475 ms, prolonged. QRS duration 90 ms, normal.), QRS complexes (Normal), ST-T waves (Normal) Rate: normal (Rate 80 bpm) Disposition Clinical Impression: Anemia, Dyspnea, Elevated troponin Disposition: ADMITTED IP TO THIS [facility] Condition: Poor Is patient prescribed a controlled substance at d/c from ED?: No Referrals: Harris Vidales DO [Primary Care Provider] - 1-2 days
[2019-11-04 02:58] LABS: Basophils # (A) 0.1 k/uL (0-0.2); Basophils % (A) 1 %; Eosinophils # (A) 0.5 k/uL (0-0.7); Eosinophils % (A) 5 %; HCT 22.4 % (39.0-53.0); Hypochromasia Moderate; Lymphocytes # (A) 1.2 k/uL (1.0-4.8); Lymphocytes % (A) 14 %; MCH 30.6 pg (25.0-35.0); MCHC 30.9 g/dL (31.0-37.0); MCV 98.9 fL (80.0-100.0); Macrocytosis Slight; Mean Platelet Volume 9.4; Monocytes # (A) 0.8 k/uL (0-1.0); Monocytes % (A) 9 %; Neutrophils # (A) 5.8 k/uL (1.3-7.7); Neutrophils % (A) 68 %; Platelet Count 321 k/uL (150-450); RBC 2.26 m/uL (4.30-5.90); RDW 15.1 % (11.5-15.5); WBC 8.5 k/uL (3.8-10.6)
[2019-11-04 03:05] LABS: HGB 6.9 gm/dL (13.0-17.5)
[2019-11-04 03:09] LABS: INR 1.2 (<1.2); Prothrombin Time 12.2 sec (9.0-12.0)
--- NOTE | 2019-11-04 03:10 | XR ---
EXAMINATION TYPE: XR chest 1V portable DATE OF EXAM: 11/04/2019 COMPARISON: 06/09/2018 HISTORY: Short of breath TECHNIQUE: Single frontal view of the chest is obtained. FINDINGS: There is some mild linear density at the left lung base. There is poor inspiration. There are chest leads. There is no heart failure. Bony thorax is intact. IMPRESSION: Mild subsegmental atelectasis at the left lung base is new compared to old exam.
[2019-11-04 03:11] LABS: Albumin 4.2 g/dL (3.5-5.0); Calcium 9.4 mg/dL (8.4-10.2); Potassium 5.2 mmol/L (3.5-5.1); Total Bilirubin 0.5 mg/dL (0.2-1.3); Total Protein 6.9 g/dL (6.3-8.2)
[2019-11-04] MEDS ORDERED: HYDROmorphone 1 MG/ML 1 ML SYRINGE IVP STA ×2 (03:30→05:35)
[2019-11-04 03:58] LABS: HCT 21.6 % (39.0-53.0); Hypochromasia Slight; MCHC 32.3 g/dL (31.0-37.0); MCV 96.1 fL (80.0-100.0); Mean Platelet Volume 10.7; Platelet Count 296 k/uL (150-450); RBC 2.25 m/uL (4.30-5.90); RDW 15.2 % (11.5-15.5); WBC 9.4 k/uL (3.8-10.6)
[2019-11-04] MEDS ORDERED: NITROGLYCERIN OINT 1 INCH/GM PACKET TOPICAL STA (05:28)
[2019-11-04] MEDS ORDERED: FUROSEMIDE 10 MG/ML 4 ML VIAL IV STA (05:28)
[2019-11-04 05:54] LABS: Amylase 45 U/L (30-110)
[2019-11-04] MEDS ORDERED: LABETALOL 5 MG/ML VIAL MDV IVP STA (06:04)
--- NOTE | 2019-11-04 06:25 | CT ---
EXAMINATION TYPE: CT chest wo con DATE OF EXAM: 11/04/2019 COMPARISON: None HISTORY: tien CT DLP: 785 mGycm Automated exposure control for dose reduction was used. Multiple axial sections were obtained from the thoracic inlet to the diaphragm with no contrast. There is massive abdominal ascites. There is small pericardial effusion. Heart is enlarged. There is no mediastinal adenopathy. There are no hilar masses. Thoracic aorta shows mild atheromatous change. There is no aneurysm. Ascending aorta measures up to 4 cm. There are small pleural effusions . There is some spurring in the thoracic spine. I see no bony destructive process. IMPRESSION: Small pleural effusions. Small pericardial effusion. Mild basilar patchy pulmonary atelectasis. Mild cardiomegaly. Significant abdominal ascites.
[2019-11-04] MEDS ORDERED: HYDROmorphone 1 MG/ML 1 ML SYRINGE IVP PRN (06:40)
[2019-11-04] MEDS ORDERED: NALOXONE 0.4 MG/ML 1 ML VIAL IV PRN (06:40)
[2019-11-04] MEDS ORDERED: ACETAMINOPHEN TAB 325 MG TAB PO PRN (06:40)
[2019-11-04] MEDS ORDERED: LEVOTHYROXINE 75 MCG TAB PO SCH (07:30)
[2019-11-04] MEDS ORDERED: PANTOPRAZOLE 40 MG TABLET PO SCH (07:30)
[2019-11-04] MEDS ORDERED: INSULIN ASPART (NovoLOG) 100 UNIT/ML VIAL SQ SCH ×2 (07:30→21:00)
[2019-11-04 08:32] LABS: Glucose,Whole Blood 327 mg/dL (75-99)
[2019-11-04] MEDS ORDERED: FUROSEMIDE 40 MG TAB PO SCH (09:00)
[2019-11-04] MEDS ORDERED: FENOFIBRATE 160 MG TAB PO SCH (09:00)
[2019-11-04] MEDS ORDERED: ATORVASTATIN 40 MG TAB PO SCH (09:00)
[2019-11-04] MEDS ORDERED: LOSARTAN-HCTZ 50-12.5 MG 1 EACH TAB PO SCH (09:00)
[2019-11-04] MEDS: SODIUM CHLORIDE 0.9% 1,000 ML IV SCH ×4 (09:01→20:58)
[2019-11-04] MEDS ORDERED: INSULIN REGULAR BOLUS (FROM DRIP BAG) IV PRN ×2 (09:14→09:44)
[2019-11-04] MEDS ORDERED: DIALYSIS INTRAPERIT ONE (09:30)
[2019-11-04] MEDS ORDERED: INSULIN REGULAR 100 UNIT in SODIUM CHLORIDE 0.9% 100 ML IV SCH ×2 (09:30→09:45)
[2019-11-04 09:50] LABS: Glucose,Whole Blood 372 mg/dL (75-99)
[2019-11-04 10:00] LABS: HCT 24.2 % (39.0-53.0); HGB 7.7 gm/dL (13.0-17.5); MCH 30.4 pg (25.0-35.0); MCV 95.2 fL (80.0-100.0); Mean Platelet Volume 8.3; Platelet Count 296 k/uL (150-450); RBC 2.54 m/uL (4.30-5.90); RDW 15.2 % (11.5-15.5); WBC 9.1 k/uL (3.8-10.6)
[2019-11-04] MEDS ORDERED: PIPERACILLIN-TAZOBACTAM 3.375 GM in SODIUM CHLORIDE 0.9% 100 ML IVPB SCH (10:00)
[2019-11-04 10:05] LABS: ABG HCO3 24 mmol/L (21-25); ABG Oxygen Saturation 94.1 % (94-97); ABG PCO2 42 mmHg (35-45); ABG PH 7.35 (7.35-7.45); ABG PO2 72 mmHg (83-108); ABG TCO2 25 mmol/L (19-24); Allen Test Performed? Yes
[2019-11-04 10:10] LABS: Albumin 4.3 g/dL (3.5-5.0); Calcium 9.2 mg/dL (8.4-10.2); Potassium 5.9 mmol/L (3.5-5.1); Total Bilirubin 0.8 mg/dL (0.2-1.3); Total Protein 7.3 g/dL (6.3-8.2)
[2019-11-04] MEDS ORDERED: hydrALAZINE HCL 20 MG/ML 1 ML VIAL IVP PRN (10:12)
[2019-11-04 10:27] LABS: Glucose,Whole Blood 303 mg/dL (75-99)
--- NOTE | 2019-11-04 10:54 | US ---
EXAMINATION TYPE: US kidneys/renal and bladder DATE OF EXAM: 11/04/2019 COMPARISON: CT chest earlier today. Renal ultrasound July 01, 2018 CLINICAL HISTORY: hematuria/ascites. ICU patient with peritoneal dialysis catheter; diabetic, gross h ematuria EXAM MEASUREMENTS: Right Kidney: 10.9 x 6.1 x 5.1 cm Left Kidney: 10.8 x 5.9 x 6.5 cm Post Void Residual Volume: NA with Mota Catheter noted within Renal US limited by surrounding ascites. Peritoneal fluid catheter noted within RLQ. Ascites is seen in all four abdominal quadrants. Right Kidney: No hydronephrosis or masses seen Left Kidney: No hydronephrosis or masses seen Bladder: Mota catheter seen within dilated bladder (abnormal thickened bladder wall at 6.4mm); lobul ar echogenic contents noted within Mota Catheter. Initial images show small to moderate amount of abdominal and pelvic ascites throughout bilateral upp er and lower quadrants with suspected peritoneal dialysis catheter partially imaged. There is increas ed cortical echogenicity in both kidneys. Visualized liver is small in size and heterogeneously hyper echoic. Bladder remains distended despite Mota catheter in place. Bladder wall perhaps mildly thicke eric. Correlate for cystitis. Internal debris also may be present which correlates with acute infectio n. Neither kidney well seen on images saved. IMPRESSION: Suboptimal study due to body habitus. Moderate ascites is noted. No hydronephrosis is pre sent bilaterally. Distended bladder is present despite Mota catheter. Correlate for acute cystitis.
[2019-11-04 10:58] LABS: Bacteria,Urine Rare /hpf; RBC,Urine >182 /hpf (0-5)
[2019-11-04 11:26] LABS: Appearance,Urine Bloody (Clear); Color,Urine Dark Red
[2019-11-04 11:54] LABS: Glucose,Whole Blood 145 mg/dL (75-99)
--- NOTE | 2019-11-04 12:24 | P.CNPUL ---
History of Present Illness Consult date: 11/04/19 Requesting physician: Andrade Walter Reason for consult: other (ICU management) Chief complaint: Shortness of breath History of present illness: This is a 74-year-old white male with history of chronic end-stage renal disease, on peritoneal dialysis, history of hypertension, chronic anemia, hypothyroidism, dyslipidemia, history of diastolic congestive heart failure, insulin-dependent diabetes which was diagnosed over 20 years ago, patient had a recent peritoneal catheter placement for dialysis, and this was done supposedly at [facility]. Patient was brought into the ER mostly with a few days' history of increased shortness of breath, increased abdominal distention, he had no cough, no fever, no chills, no hemoptysis, no chest pain. He has been complaining of severe low back pain for the last few days. Workup in the ER included a CT of the chest chest x-ray, his CT of the chest showed small pleural effusions, small pericardial effusion, mild basilar patchy atelectasis, and ca rdiomegaly, there was also evidence of significant abdominal ascites. Patient was admitted initially to a monitor bed on selective, and his admitting diagnosis was basically anemia and possible GI bleeding. Although his Hemoccult stool was negative. Patient was later transferred to the ICU mostly because of concern about abdominal sepsis, increased abdominal girth, ascites, and increased shortness of breath requiring high flow nasal cannula at 10 L/m. I saw the patient in the ICU, and I have recommended broad-spectrum antibiotics coverage, surgical consultation, urologic consultation, renal ultrasound to evaluate his gross hematuria, and I also recommended a CT of the abdomen and pelvis. We'll also recommend ultrasound or CT-guided paracentesis by interventional radiology. Fluid from the arterial catheter will be removed and will be sent for different diagnostic studies including cultures cell count and differential. ABG on 28% FiO2 showed a pO2 of 72 be CO2 of 45 and pH of 7.35. WBC count 9.1 hemoglobin 7.7. Electrolytes and renal profile were noted, and his hyperkalemia is being addressed by nephrology was also consulted on the case. Troponin on admission was 0.047. Urinalysis showed mostly gross hematuria. Review of Systems Constitutional: Denies chills, Denies fever, complains of generalized weakness. Eyes: denies blurred vision, denies pain Ears, nose, mouth and throat: Denies headache, Denies sore throat, Cardiovascular: Denies chest pain, denies palpitations, Respiratory: As noted in HPI. Gastrointestinal: As noted in HPI. Genitourinary: Gross hematuria. Musculoskeletal: Chronic low back pain. Worsening in the last couple of days Integumentary: Denies pruritus, Denies rash Neurological: Denies numbness, Denies weakness Psychiatric: Denies anxiety, Denies depression Endocrine: Denies heat or cold intolerance. Has history of hypothyroidism on replacement therapy. And history of diabetes. Past Medical History Past Medical History: Dialysis, Hyperlipidemia, Hypertension, Thyroid Disorder History of Any Multi-Drug Resistant Organisms: None Reported Past Surgical History: No Surgical Hx Reported Past Psychological History: No Psychological Hx Reported Smoking Status: Former smoker Past Alcohol Use History: None Reported Past Drug Use History: None Reported Medications and Allergies Home Medications Medication Instructions Recorded Confirmed Type Atorvastatin [Lipitor] 40 mg PO DAILY 11/13/16 06/09/18 History Fenofibrate Nanocrystallized 145 mg PO DAILY 11/13/16 06/09/18 History [Tricor] Levothyroxine Sodium [Synthroid] 75 mcg PO DAILY 11/13/16 06/09/18 History Tamsulosin HCl [Flomax] 0.4 mg PO DAILY 11/13/16 06/09/18 History Furosemide [Lasix] 40 mg PO DAILY #60 tab 11/16/16 06/09/18 Rx Cephalexin [Keflex] 500 mg PO Q6HR #40 cap 06/09/18 Rx Clotrimazole/Betamethasone Dip 1 applic TOPICAL BID 06/09/18 06/09/18 History [Lotrisone Cream] Insulin NPH Hum/Reg Insulin Hm 40 unit SQ HS 06/09/18 06/09/18 History [humuLIN 70/30 Kwikpen] Insulin NPH Hum/Reg Insulin Hm 58 unit SQ AC-BRKFST 06/09/18 06/09/18 History [humuLIN 70/30 Kwikpen] Lansoprazole 30 mg PO DAILY 06/09/18 06/09/18 History Losartan/Hydrochlorothiazide 1 tab PO DAILY 06/09/18 06/09/18 History [Losartan-Hctz 100-25 mg Tab] Potassium Chloride [Klor-Con 20] 20 meq PO DAILY 06/09/18 06/09/18 History metFORMIN HCL [metFORMIN HCL ER] 1,000 mg PO AC-SUPPER 06/09/18 06/09/18 History Allergies Allergy/AdvReac Type Severity Reaction Status Date / Time No Known Allergies Allergy Verified 11/04/19 02:22 Physical Exam Vitals: Vital Signs Temp Pulse Resp BP Pulse Ox 11/04/19 11:00 76 14 158/70 100 11/04/19 10:30 94.1 F L 73 19 140/68 100 11/04/19 10:00 72 16 162/89 98 11/04/19 09:50 71 14 162/89 100 11/04/19 09:40 71 16 142/63 100 11/04/19 09:30 70 12 137/65 99 11/04/19 09:20 71 14 137/65 93 L 11/04/19 09:10 71 17 150/76 93 L 11/04/19 09:04 94.5 F L 70 12 150/76 95 11/04/19 09:00 94.5 F L 70 14 163/86 94 L 11/04/19 08:30 73 21 180/83 89 L 11/04/19 08:00 93.1 F L 68 12 162/73 75 L 11/04/19 07:06 97.5 F L 72 20 159/83 96 11/04/19 06:36 97.5 F L 72 20 142/69 96 11/04/19 06:26 97.5 F L 72 20 151/66 98 11/04/19 05:00 72 22 168/81 100 11/04/19 04:30 73 23 161/76 98 11/04/19 04:00 76 23 134/49 98 11/04/19 03:30 75 22 134/49 97 11/04/19 03:00 80 20 156/70 96 11/04/19 02:19 97.6 F 79 20 157/69 95 Intake and Output 11/03/19 11/04/19 11/04/19 22:59 06:59 14:59 Intake Total 0 550 Output Total 775 Balance 0 -225 Intake: IV 240 Sodium Chloride 0.9% 1, 240 000 ml @ 20 mls/hr IV . Q24H [facility] Rx#:[id number] Blood Product 0 310 Rc As-1 Unit 0 310 [id number] Output: Urine 775 Other: Weight 113.852 kg Physical Exam: Revealed a 74-year-old male, looks chronically ill, in mild re spiratory distress. On high flow nasal cannula HEENT:[Neck is supple.] [No neck masses.] [No thyromegaly.] [No JVD.] Chest: [Symmetrical chest expansion, minimal crackles at the bases, no rhonchi and no wheezes.] Cardiac Exam: [Normal S1 and S2, no S3 gallop, 2/6 systolic murmur thought the precordium. Abdomen: [Distended, suspect ascites, nontender to palpation, dialysis catheter noted in the left lower quadrant area, no rebound, no guarding, diminished bowel sounds. Extremities: [No clubbing, 1+ bipedal edema, no cyanosis.] Neurological Exam: [Alert oriented 3, no gross focal neurologic deficits. Psychiatric: Normal mood, blunt affect, normal mental status examination. Skin: No rashes. Lymphatics: No lymphadenopathy. Results - Laboratory Findings CBC and BMP: 11/04/19 09:21 11/04/19 09:21 ABG ABG pH 7.35 (7.35-7.45) 11/04/19 10:03 ABG pCO2 42 mmHg (35-45) 11/04/19 10:03 ABG pO2 72 mmHg (83-108) L 11/04/19 10:03 ABG O2 Saturation 94.1 % (94-97) 11/04/19 10:03 PT/INR, D-dimer PT 12.2 sec (9.0-12.0) H 11/04/19 02:46 INR 1.2 (<1.2) H 11/04/19 02:46 Abnormal lab findings: Abnormal Labs 11/04/19 11/04/19 11/04/19 02:46 02:46 02:46 RBC 2.26 L Hgb 6.9 L* D Hct 22.4 L MCHC 30.9 L PT 12.2 H INR 1.2 H ABG pO2 ABG Total CO2 Potassium 5.2 H Carbon Dioxide 19 L BUN 83 H Creatinine 5.95 H Glucose 310 H POC Glucose (mg/dL) ALT Troponin I Urine RBC Urine WBC Urine Bacteria Crossmatch 11/04/19 11/04/19 11/04/19 02:46 03:43 03:43 RBC 2.25 L Hgb 7.0 L Hct 21.6 L MCHC PT INR ABG pO2 ABG Total CO2 Potassium Carbon Dioxide BUN Creatinine Glucose POC Glucose (mg/dL) ALT Troponin I 0.049 H* Urine RBC Urine WBC Urine Bacteria Crossmatch See Detail 11/04/19 11/04/19 11/04/19 08:21 08:45 09:21 RBC 2.54 L Hgb 7.7 L Hct 24.2 L MCHC PT INR ABG pO2 ABG Total CO2 Potassium Carbon Dioxide BUN Creatinine Glucose POC Glucose (mg/dL) 327 H ALT Troponin I Urine RBC >182 H Urine WBC >182 H Urine Bacteria Rare H Crossmatch 11/04/19 11/04/19 11/04/19 09:21 09:32 09:39 RBC Hgb Hct MCHC PT INR ABG pO2 ABG Total CO2 Potassium 5.9 H Carbon Dioxide BUN 81 H Creatinine 6.29 H Glucose 304 H POC Glucose (mg/dL) 372 H ALT 20 L Troponin I 0.047 H* Urine RBC Urine WBC Urine Bacteria Crossmatch 11/04/19 11/04/19 11/04/19 10:03 10:14 11:43 RBC Hgb Hct MCHC PT INR ABG pO2 72 L ABG Total CO2 25 H Potassium Carbon Dioxide BUN Creatinine Glucose POC Glucose (mg/dL) 303 H 145 H ALT Troponin I Urine RBC Urine WBC Urine Bacteria Crossmatch - Diagnostic Findings Chest x-ray: image reviewed (As noted in HPI) CT scan - chest: image reviewed (As noted in HPI) Additional studies: Renal ultrasound was noted. Assessment and Plan Assessment: Impression: 1 abdominal distention and ascites, possible abdominal sepsis. 2 chronic renal failure,/end-stage renal disease. Patient is on peritoneal dialysis. 3 acute on chronic anemia most likely secondary to gross hematuria, negative Hemoccult stools. Doubt GI bleeding. 4 gross hematuria, possible cystitis, urology was consulted, in the meantime patient will be placed on broad-spectrum antibiotics to cover for abdominal sepsis and for cystitis. 5 history of hypothyroidism 6 history of hypertension 7 history of insulin-dependent diabetes. 8 history of anasarca and advanced liver disease, possible liver cirrhosis. 9 history of nephrotic syndrome 10 history of diastolic congestive heart failure 11 history of dyslipidemia 12 history of benign prostatic hypertrophy 13 chronic pain syndrome. Recommendation: Continue to monitor in the ICU. CT abdomen and pelvis. Ultrasound-guided paracentesis. Renal ultrasound. Consultation with nephrology urology and general surgery Broad-spectrum antibiotics for presumptive abdominal sepsis and this will be guided by cultures including blood cultures, and cultures of the peritoneal fluid. Arrange for interventional radiology to perform paracentesis. GI and DVT prophylaxis. Prognosis is definitely poor and guarded, we'll continue to follow. Time with Patient: Greater than 30
[2019-11-04 12:50] LABS: Glucose,Whole Blood 103 mg/dL (75-99)
--- NOTE | 2019-11-04 14:15 | CONS ---
CONSULTATION Mr. Baig is a 74-year-old male with known history of hypertension, diabetes, hyperlipidemia, end-stage renal disease on peritoneal dialysis for the last 6 weeks, who presented with symptoms of progressive fatigue and back pain and was found to have severe anemia. A Mota catheter was inserted and showed kimberlyn blood. The patient has been followed on a regular basis by supervisor laundry at [facility]. The details of that are not available, but he was told that he had heart failure. The patient was on warfarin in the past and was switched to a new anticoagulation by Dr. Vidales recently, although the reason behind anticoagulation is unclear and the name of the new anticoagulant is unclear. It could be Eliquis, although I do not have documentation of that and the patient does not recall. He has been complaining of progressive fatigue and dyspnea for the last week or so. He has no chest pain, no palpitation. He has chronic peripheral edema. No PND. No orthopnea. He is not very active physically. His coronary risk factors are remarkable for history of hypertension, hyperlipidemia, and diabetes. He has stopped smoking 40 years ago. MEDICATIONS AT HOME: Included metformin, Flomax, losartan 100-25 mg daily, Lasix 40 mg daily, Tricor, Lipitor 40 mg daily, potassium, insulin, Lotrisone, and Keflex. REVIEW OF SYSTEMS: RESPIRATORY SYSTEM: He had dyspnea on exertion. No recent wheezing or cough. He has no documented obstructive lung disease. GI SYSTEM: He has no recent nausea and vomiting. No clear GI bleeding. He had a prior history of heartburn for which he takes a PPI on a p.r.n. basis. SYSTEM: He has end-stage renal disease as noted. He has noted some hematuria recently and according to him, he has received treatment. NERVOUS SYSTEM: He denies any stroke or seizure. SOCIAL HISTORY: He drinks decaffeinated beverages. He stopped smoking 4 years ago and he stopped alcohol intake about 2 or 3 years ago, used to be on heavy alcohol intake. PHYSICAL EXAMINATION: A 74-year-old male, alert, oriented, in no apparent distress. Blood pressure 158/70 with a heart rate in 70s, afebrile. HEAD: Normocephalic. EYES: Sclerae nonicteric. NECK: Good upstroke, no bruit. LUNGS: Clear to auscultation. HEART: Regular rate and rhythm. S1, S2. No S3 with systolic murmur, ejection type heard at the base. No diastolic murmur, no rub. ABDOMEN: Soft, nontender. Dialysis catheter noted. EXTREMITIES: +1 edema with chronic skin changes. LAB DATA: On presentation hemoglobin of 6.9, BUN and creatinine of 83 and 5.95. Potassium 5.2. NT proBNP 1550. Troponin 0.049, and 0.047, of note that his troponin in 2018 and 2016 was mildly elevated as well. His heme stool is negative. His hemoglobin this morning 7.7 after transfusion. His EKG revealed a sinus mechanism, normal axis, first-degree AV block, nonspecific ST-T wave changes. His chest x-ray shows mild atelectasis, but no clear infiltrate. IMPRESSION: 1. Severe anemia, could be related to the severe hematuria. No clear other etiology. 2. Mild troponin elevation, most likely related to the chronic kidney disease. Patient had a troponin elevation in the past that is unchanged. 3. History of anticoagulation for unclear reason. Could have exacerbated the bleeding. 4. History of hypertension. 5. Hyperlipidemia. 6. Diabetes mellitus. 7. Chronic kidney disease with peritoneal dialysis for the last 6 weeks. 8. Remote history of alcohol abuse. RECOMMENDATION: From the cardiac standpoint, I will obtain echocardiogram with Doppler. I will try to obtain the prior workup that was done at [facility] and by his supervisor laundry, Dr. Spain. Armandoll try to see from Dr. Vidales what anticoagulant was initiated and why it was initiated. I will add to his regimen metoprolol tartrate 25 mg twice a day, and I will stop his fenofibrate and continue on the statin alone. Depending on the results of testing, further recommendation will be made. Thank you for this consult. Will follow with you. MMODL / IJN: [id number] /
--- NOTE | 2019-11-04 14:26 | P.HPIM ---
History of Present Illness H&P Date: 11/04/19 Chief Complaint: Abdominal pain, acute anemia, gross hematuria, questionable of GI bleed, en 74-year-old male one of Dr. Vidales patient with end-stage renal disease on [place] dialysis done it through nephrology group at [place] related to [facility]. Patient is on of Dr. Vidales patient was known to have history of atherosclerotic heart disease, hypertension, hyperlipidemia, diastolic congestive heart failure, insulin-dependent diabetes and advance kidney disease who apparently had 3 hernia repair in July 2019 and had CAPD catheter placement at [facility] same time and had started on peritoneal dialysis over the last few weeks. Patient presented to demurs department today at [facility] complaining of worsening lower back pain along with abdominal pain and distention and gross hematuria with questionable of bright red blood per rectum. He was anemic with hemoglobin of 7.1 hemodynamically not stable at the time hypotensive and hypoxic was started on blood transfusion and admit patient initially to the floor but was overflow in the ICU patient become more instable had more hemorrhage and more bleeding specially hematuria mild hypoxia worsening shortness of breath with distended abdomen looks like he had over 4-5 L of CAPD fluid was never drained consult intensive care along with nephrology and urology his troponin was elevated we'll consult cardiology as well and for whatever we have reason patient has been on anticoagulation with severe coagulopathy until 2 weeks ago apparently was moving into one of the oral hypoglycemic agent most likely Eliquis, patient doesn't remember the dose which made the bleeding much worse he doesn't remember why he is on medication the first place but 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 fib. GI bleed kind of was excluded with negative Hemoccult and no blood coming out of the rectum. Review of Systems CONSTITUTIONAL: Looks much older than his age in mild respiratory distress and mild confusion. EYES: No icterus sclerae, no conjunctivitis. EARS, NOSE, MOUTH, THROAT, and FACE: No sore throat, lymphadenopathy, carotid bruits or deformity. RESPIRATORY: Mild shortness of breath. CARDIOVASCULAR: Positive PND orthopnea palpitation or angina. GASTROINTESTINAL: Positive abdominal pain with distention nausea no vomiting. Positive rectal bleed, no distention or masses. Also patient had PD fluid retention. GENITOURINARY: Positive hematuria more gross with significant clot. INTEGUMENT/BREAST: Negative for any muscular injury with mild osteoarthritis.. HEMATOLOGIC/LYMPHATIC: Negative for bleed or purpura. MUSCULOSKELTAL: Negative for Myalgia or arthralgia. NEURLOGICAL: No LOC, Sz or syncope, blurred vision dizziness or abnormality.. BEHAVIORAL/PSYCH: Negative. ENDOCRINE: Negative. Past Medical History Past Medical History: Dialysis, Hyperlipidemia, Hypertension, Thyroid Disorder History of Any Multi-Drug Resistant Organisms: None Reported Past Surgical History: No Surgical Hx Reported Past Psychological History: No Psychological Hx Reported Smoking Status: Former smoker Past Alcohol Use History: None Reported Past Drug Use History: None Reported Medications and Allergies Home Medications Medication Instructions Recorded Confirmed Type Atorvastatin [Lipitor] 40 mg PO DAILY 11/13/16 06/09/18 History Fenofibrate Nanocrystallized 145 mg PO DAILY 11/13/16 06/09/18 History [Tricor] Levothyroxine Sodium [Synthroid] 75 mcg PO DAILY 11/13/16 06/09/18 History Tamsulosin HCl [Flomax] 0.4 mg PO DAILY 11/13/16 06/09/18 History Furosemide [Lasix] 40 mg PO DAILY #60 tab 11/16/16 06/09/18 Rx Cephalexin [Keflex] 500 mg PO Q6HR #40 cap 06/09/18 Rx Clotrimazole/Betamethasone Dip 1 applic TOPICAL BID 06/09/18 06/09/18 History [Lotrisone Cream] Insulin NPH Hum/Reg Insulin Hm 40 unit SQ HS 06/09/18 06/09/18 History [humuLIN 70/30 Kwikpen] Insulin NPH Hum/Reg Insulin Hm 58 unit SQ AC-BRKFST 06/09/18 06/09/18 History [humuLIN 70/30 Kwikpen] Lansoprazole 30 mg PO DAILY 06/09/18 06/09/18 History Losartan/Hydrochlorothiazide 1 tab PO DAILY 06/09/18 06/09/18 History [Losartan-Hctz 100-25 mg Tab] Potassium Chloride [Klor-Con 20] 20 meq PO DAILY 06/09/18 06/09/18 History metFORMIN HCL [metFORMIN HCL ER] 1,000 mg PO AC-SUPPER 06/09/18 06/09/18 History Allergies Allergy/AdvReac Type Severity Reaction Status Date / Time No Known Allergies Allergy Verified 11/04/19 02:22 Physical Exam Vitals: Vital Signs Temp Pulse Resp BP Pulse Ox 11/04/19 11:00 76 14 158/70 100 11/04/19 10:30 94.1 F L 73 19 140/68 100 11/04/19 10:00 72 16 162/89 98 11/04/19 09:50 71 14 162/89 100 11/04/19 09:40 71 16 142/63 100 11/04/19 09:30 70 12 137/65 99 11/04/19 09:20 71 14 137/65 93 L 11/04/19 09:10 71 17 150/76 93 L 11/04/19 09:04 94.5 F L 70 12 150/76 95 11/04/19 09:00 94.5 F L 70 14 163/86 94 L 11/04/19 08:30 73 21 180/83 89 L 11/04/19 08:00 93.1 F L 68 12 162/73 75 L 11/04/19 07:06 97.5 F L 72 20 159/83 96 11/04/19 06:36 97.5 F L 72 20 142/69 96 11/04/19 06:26 97.5 F L 72 20 151/66 98 11/04/19 05:00 72 22 168/81 100 11/04/19 04:30 73 23 161/76 98 11/04/19 04:00 76 23 134/49 98 11/04/19 03:30 75 22 134/49 97 11/04/19 03:00 80 20 156/70 96 11/04/19 02:19 97.6 F 79 20 157/69 95 Intake and Output 11/03/19 11/04/19 11/04/19 22:59 06:59 14:59 Intake Total 0 350 Output Total 325 Balance 0 25 Intake: IV 40 Sodium Chloride 0.9% 1, 40 000 ml @ 20 mls/hr IV . Q24H [facility] Rx#:[id number] Blood Product 0 310 Rc As-1 Unit 0 310 [id number] Output: Urine 325 Other: Weight 113.852 kg General Appearance: On the overweight older than his age mild confusion. Neck HEENT: Supple, no lymphadenopathy, no thyroid enlargement, no carotid bruits. Lungs: Decreased breath sound bilaterally without rhonchi no crackles positive mild expiratory wheezes. Chest Wall: Decrease expansion with deep inspiration no tenderness and no deformity was found on exam, no costochondral pain or discomfort. Heart: Regular rate and rhythm, S1, S2 positive history +5 cm JVD with systolic murmur. Back: Symmetric, no curvature, ROM normal, no CVA tenderness. Abdomen: Significant distention with significant fluid in the abdomen from CAPD, patient had CAPD catheter looks clean with no sign of infection. Extremities: Trace edema slight change in color and mild dermatitis decreased pulses bilaterally. Pulses: 2+ and symmetric. Skin: Skin color, texture, tugor normal, no rashes or lesions. Neurologic: Alert with slightly confusion cranial nerves 2-12 intact positive generalized weakness no focal deficit. Results CBC & Chem 7: 11/04/19 09:21 11/04/19 09:21 Labs: Abnormal Lab Results - Last 24 Hours (Table) 11/04/19 11/04/19 11/04/19 Range/Units 02:46 02:46 02:46 RBC 2.26 L (4.30-5.90) m/uL Hgb 6.9 L* D (13.0-17.5) gm/dL Hct 22.4 L (39.0-53.0) % MCHC 30.9 L (31.0-37.0) g/dL PT 12.2 H (9.0-12.0) sec INR 1.2 H (<1.2) ABG pO2 (83-108) mmHg ABG Total CO2 (19-24) mmol/L Potassium 5.2 H (3.5-5.1) mmol/L Carbon Dioxide 19 L (22-30) mmol/L BUN 83 H (9-20) mg/dL Creatinine 5.95 H (0.66-1.25) mg/dL Glucose 310 H (74-99) mg/dL POC Glucose (mg/dL) (75-99) mg/dL ALT (21-72) U/L Troponin I (0.000-0.034) ng/mL Urine RBC (0-5) /hpf Urine Bacteria (None) /hpf Crossmatch 11/04/19 11/04/19 11/04/19 Range/Units 02:46 03:43 03:43 RBC 2.25 L (4.30-5.90) m/uL Hgb 7.0 L (13.0-17.5) gm/dL Hct 21.6 L (39.0-53.0) % MCHC (31.0-37.0) g/dL PT (9.0-12.0) sec INR (<1.2) ABG pO2 (83-108) mmHg ABG Total CO2 (19-24) mmol/L Potassium (3.5-5.1) mmol/L Carbon Dioxide (22-30) mmol/L BUN (9-20) mg/dL Creatinine (0.66-1.25) mg/dL Glucose (74-99) mg/dL POC Glucose (mg/dL) (75-99) mg/dL ALT (21-72) U/L Troponin I 0.049 H* (0.000-0.034) ng/mL Urine RBC (0-5) /hpf Urine Bacteria (None) /hpf Crossmatch See Detail 11/04/19 11/04/19 11/04/19 Range/Units 08:21 08:45 09:21 RBC 2.54 L (4.30-5.90) m/uL Hgb 7.7 L (13.0-17.5) gm/dL Hct 24.2 L (39.0-53.0) % MCHC (31.0-37.0) g/dL PT (9.0-12.0) sec INR (<1.2) ABG pO2 (83-108) mmHg ABG Total CO2 (19-24) mmol/L Potassium (3.5-5.1) mmol/L Carbon Dioxide (22-30) mmol/L BUN (9-20) mg/dL Creatinine (0.66-1.25) mg/dL Glucose (74-99) mg/dL POC Glucose (mg/dL) 327 H (75-99) mg/dL ALT (21-72) U/L Troponin I (0.000-0.034) ng/mL Urine RBC >182 H (0-5) /hpf Urine Bacteria Rare H (None) /hpf Crossmatch 11/04/19 11/04/19 11/04/19 Range/Units 09:21 09:32 09:39 RBC (4.30-5.90) m/uL Hgb (13.0-17.5) gm/dL Hct (39.0-53.0) % MCHC (31.0-37.0) g/dL PT (9.0-12.0) sec INR (<1.2) ABG pO2 (83-108) mmHg ABG Total CO2 (19-24) mmol/L Potassium 5.9 H (3.5-5.1) mmol/L Carbon Dioxide (22-30) mmol/L BUN 81 H (9-20) mg/dL Creatinine 6.29 H (0.66-1.25) mg/dL Glucose 304 H (74-99) mg/dL POC Glucose (mg/dL) 372 H (75-99) mg/dL ALT 20 L (21-72) U/L Troponin I 0.047 H* (0.000-0.034) ng/mL Urine RBC (0-5) /hpf Urine Bacteria (None) /hpf Crossmatch 11/04/19 11/04/19 Range/Units 10:03 10:14 RBC (4.30-5.90) m/uL Hgb (13.0-17.5) gm/dL Hct (39.0-53.0) % MCHC (31.0-37.0) g/dL PT (9.0-12.0) sec INR (<1.2) ABG pO2 72 L (83-108) mmHg ABG Total CO2 25 H (19-24) mmol/L Potassium (3.5-5.1) mmol/L Carbon Dioxide (22-30) mmol/L BUN (9-20) mg/dL Creatinine (0.66-1.25) mg/dL Glucose (74-99) mg/dL POC Glucose (mg/dL) 303 H (75-99) mg/dL ALT (21-72) U/L Troponin I (0.000-0.034) ng/mL Urine RBC (0-5) /hpf Urine Bacteria (None) /hpf Crossmatch Thrombosis Risk Factor Assmnt - DVT/VTE Prophylaxis DVT/VTE Prophylaxis: Pharmacologic Prophylaxis ordered, Mechanical Prophylaxis ordered Assessment and Plan Plan: 1 acute blood loss anemia: Most likely secondary to bleed with the possibility of gastrointestinal bleed as well, blood transfusion be done, continue to monitor for any clot or hematuria, will consult urology. 2 gross hematuria: Not clear etiology CT of the abdomen and pelvis will be done and consult urology patient will need eventually cystoscopy. 3 rectal bleed: No sign of bleeding at this point GI will be on standby and if patient continued to have bleed might require colonoscopy. 4 end-stage renal disease on CAPD with retention of the PD fluid, will do the CAPD exchange at this point. 5 atherosclerotic heart disease: Patient has not seen cardiology in town but with his elevated troponin and cardiology consultation be done is not in any shape or condition to go for any intervention we watch CK with troponin echocard iogram will be order. 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 Cardoza office will be contacted to see the reason why he is on any anticoagulation. 7 type 2 diabetes on insulin: Continue patient on insulin continue Accu-Chek with sliding scales coverage. 8 hyperlipidemia: Continue patient on atorvastatin. 9 hypothyroidism: Patient was switched to half the dose of Synthroid IV till is able to take oral medication. 10 BPH with no urinary retention still on Flomax. 11 hypertension: Has been on losartan hydrochlorothiazide patient is more hypotensive at this point medication will be held. 12 change mental status: Most likely metabolic encephalopathy related to the bleeding, anemia, end-stage renal disease and retention of PD fluid. 13 GI prophylaxis: Patient be on pantoprazole IV. 14 DVT prophylaxis: Patient is off anticoagulation for now will continue Venodyne boots and knee-high MIRTHA hose. CODE STATUS: Full code. Admit patient to inpatient status for more than 2 nights.
[2019-11-04 14:39] LABS: Glucose,Whole Blood 74 mg/dL (75-99)
[2019-11-04] MEDS: TAMSULOSIN 0.4 MG CAP.ER.24H PO SCH (14:43)
[2019-11-04] MEDS ORDERED: DEXTROSE 10 % IN WATER 250 ML IV ONE (15:27)
--- NOTE | 2019-11-04 15:30 | P.GSCN ---
History of Present Illness Consult date: 11/04/19 Reason for Consult: Acute abdominal pain, distention History of present illness: This is a 74-year-old male was admitted to the hospital for shortness of breath and anemia. The patient had significant abdominal distention and tenderness on admission to the ICU. He is also had dementia.. Apparently the patient is new to peritoneal dialysis. The nurses were able to remove 6 L of peritoneal fluid after his admission the ICU. His abdomen is now soft and pain-free. He is also had a Mota catheter placed he was in urinary retention and is evidence of hematuria. Past Medical History Past Medical History: Dialysis, Hyperlipidemia, Hypertension, Thyroid Disorder History of Any Multi-Drug Resistant Organisms: None Reported Past Surgical History: No Surgical Hx Reported Additional Past Surgical History / Comment(s): placement of peritoneal dialysis catheter and repair of umbilical hernia 07/2017, colonoscopy with polypectomy in the distant past. Past Anesthesia/Blood Transfusion Reactions: No Reported Reaction Past Psychological History: No Psychological Hx Reported Smoking Status: Former smoker Past Alcohol Use History: None Reported Past Drug Use History: None Reported Medications and Allergies Home Medications Medication Instructions Recorded Confirmed Type Atorvastatin [Lipitor] 40 mg PO HS 11/13/16 11/04/19 History Fenofibrate Nanocrystallized 145 mg PO DAILY 11/13/16 11/04/19 History [Tricor] Tamsulosin HCl [Flomax] 0.4 mg PO DAILY 11/13/16 11/04/19 History Lansoprazole 30 mg PO DAILY 06/09/18 11/04/19 History Acetaminophen Tab [Tylenol Tab] 650 mg PO Q6H PRN 11/04/19 11/04/19 History Bumetanide [BUMEX] 1 mg PO HS 11/04/19 11/04/19 History Bumetanide [BUMEX] 2 mg PO DAILY 11/04/19 11/04/19 History Calcitriol [Rocaltrol] 0.25 mcg PO DIRECTED 11/04/19 11/04/19 History Carvedilol [Coreg] 3.125 mg PO BID 11/04/19 11/04/19 History Cholecalciferol [Vitamin D3 (25 1,000 unit PO DAILY 11/04/19 11/04/19 History Mcg = 1000 Iu)] Darbepoetin Fausto [Aranesp] 60 mcg IJ WE 11/04/19 11/04/19 History Folic Acid 0.4 mg PO DAILY 11/04/19 11/04/19 History Insuln Asp Prt/Insulin Aspart 16 unit SQ AC-SUPPER 11/04/19 11/04/19 History [NovoLOG MIX 70-30 VIAL] Insuln Asp Prt/Insulin Aspart 36 units SQ AC-BRKFST 11/04/19 11/04/19 History [NovoLOG MIX 70-30 VIAL] Levothyroxine Sodium [Synthroid] 150 mcg PO DAILY 11/04/19 11/04/19 History Polyethylene Glycol 3350 [Miralax] 17 gm PO DAILY 11/04/19 11/04/19 History Rivaroxaban [Xarelto] 20 mg PO DAILY 11/04/19 11/04/19 History amLODIPine [Norvasc] 10 mg PO DAILY 11/04/19 11/04/19 History oxyCODONE HCL [Roxicodone] 5 mg PO Q4H PRN 11/04/19 11/04/19 History Allergies Allergy/AdvReac Type Severity Reaction Status Date / Time No Known Allergies Allergy Verified 11/04/19 14:53 Surgical - Exam Vital Signs Temp Pulse Resp BP Pulse Ox 97.6 F 79 20 157/69 95 11/04/19 02:19 11/04/19 02:19 11/04/19 02:19 11/04/19 02:19 11/04/19 02:19 - General well developed, no distress - Eyes PERRL - ENT normal pinna - Neck no masses - Respiratory normal expansion - Cardiovascular Rhythm: regular - Abdomen No evidence of peritoneal signs. No rebound or guarding. Abdomen: soft, non tender Results - Labs 11/04/19 09:21 11/04/19 09:21 Abnormal Lab Results - Last 24 Hours (Table) 11/04/19 11/04/19 11/04/19 Range/Units 02:46 02:46 02:46 RBC 2.26 L (4.30-5.90) m/uL Hgb 6.9 L* D (13.0-17.5) gm/dL Hct 22.4 L (39.0-53.0) % MCHC 30.9 L (31.0-37.0) g/dL PT 12.2 H (9.0-12.0) sec INR 1.2 H (<1.2) ABG pO2 (83-108) mmHg ABG Total CO2 (19-24) mmol/L Potassium 5.2 H (3.5-5.1) mmol/L Carbon Dioxide 19 L (22-30) mmol/L BUN 83 H (9-20) mg/dL Creatinine 5.95 H (0.66-1.25) mg/dL Glucose 310 H (74-99) mg/dL POC Glucose (mg/dL) (75-99) mg/dL ALT (21-72) U/L Troponin I (0.000-0.034) ng/mL Urine RBC (0-5) /hpf Urine WBC (0-5) /hpf Urine Bacteria (None) /hpf Crossmatch 11/04/19 11/04/19 11/04/19 Range/Units 02:46 03:43 03:43 RBC 2.25 L (4.30-5.90) m/uL Hgb 7.0 L (13.0-17.5) gm/dL Hct 21.6 L (39.0-53.0) % MCHC (31.0-37.0) g/dL PT (9.0-12.0) sec INR (<1.2) ABG pO2 (83-108) mmHg ABG Total CO2 (19-24) mmol/L Potassium (3.5-5.1) mmol/L Carbon Dioxide (22-30) mmol/L BUN (9-20) mg/dL Creatinine (0.66-1.25) mg/dL Glucose (74-99) mg/dL POC Glucose (mg/dL) (75-99) mg/dL ALT (21-72) U/L Troponin I 0.049 H* (0.000-0.034) ng/mL Urine RBC (0-5) /hpf Urine WBC (0-5) /hpf Urine Bacteria (None) /hpf Crossmatch See Detail 11/04/19 11/04/19 11/04/19 Range/Units 08:21 08:45 09:21 RBC 2.54 L (4.30-5.90) m/uL Hgb 7.7 L (13.0-17.5) gm/dL Hct 24.2 L (39.0-53.0) % MCHC (31.0-37.0) g/dL PT (9.0-12.0) sec INR (<1.2) ABG pO2 (83-108) mmHg ABG Total CO2 (19-24) mmol/L Potassium (3.5-5.1) mmol/L Carbon Dioxide (22-30) mmol/L BUN (9-20) mg/dL Creatinine (0.66-1.25) mg/dL Glucose (74-99) mg/dL POC Glucose (mg/dL) 327 H (75-99) mg/dL ALT (21-72) U/L Troponin I (0.000-0.034) ng/mL Urine RBC >182 H (0-5) /hpf Urine WBC >182 H (0-5) /hpf Urine Bacteria Rare H (None) /hpf Crossmatch 11/04/19 11/04/19 11/04/19 Range/Units 09:21 09:32 09:39 RBC (4.30-5.90) m/uL Hgb (13.0-17.5) gm/dL Hct (39.0-53.0) % MCHC (31.0-37.0) g/dL PT (9.0-12.0) sec INR (<1.2) ABG pO2 (83-108) mmHg ABG Total CO2 (19-24) mmol/L Potassium 5.9 H (3.5-5.1) mmol/L Carbon Dioxide (22-30) mmol/L BUN 81 H (9-20) mg/dL Creatinine 6.29 H (0.66-1.25) mg/dL Glucose 304 H (74-99) mg/dL POC Glucose (mg/dL) 372 H (75-99) mg/dL ALT 20 L (21-72) U/L Troponin I 0.047 H* (0.000-0.034) ng/mL Urine RBC (0-5) /hpf Urine WBC (0-5) /hpf Urine Bacteria (None) /hpf Crossmatch 11/04/19 11/04/19 11/04/19 Range/Units 10:03 10:14 11:43 RBC (4.30-5.90) m/uL Hgb (13.0-17.5) gm/dL Hct (39.0-53.0) % MCHC (31.0-37.0) g/dL PT (9.0-12.0) sec INR (<1.2) ABG pO2 72 L (83-108) mmHg ABG Total CO2 25 H (19-24) mmol/L Potassium (3.5-5.1) mmol/L Carbon Dioxide (22-30) mmol/L BUN (9-20) mg/dL Creatinine (0.66-1.25) mg/dL Glucose (74-99) mg/dL POC Glucose (mg/dL) 303 H 145 H (75-99) mg/dL ALT (21-72) U/L Troponin I (0.000-0.034) ng/mL Urine RBC (0-5) /hpf Urine WBC (0-5) /hpf Urine Bacteria (None) /hpf Crossmatch 11/04/19 11/04/19 Range/Units 12:38 14:28 RBC (4.30-5.90) m/uL Hgb (13.0-17.5) gm/dL Hct (39.0-53.0) % MCHC (31.0-37.0) g/dL PT (9.0-12.0) sec INR (<1.2) ABG pO2 (83-108) mmHg ABG Total CO2 (19-24) mmol/L Potassium (3.5-5.1) mmol/L Carbon Dioxide (22-30) mmol/L BUN (9-20) mg/dL Creatinine (0.66-1.25) mg/dL Glucose (74-99) mg/dL POC Glucose (mg/dL) 103 H 74 L (75-99) mg/dL ALT (21-72) U/L Troponin I (0.000-0.034) ng/mL Urine RBC (0-5) /hpf Urine WBC (0-5) /hpf Urine Bacteria (None) /hpf Crossmatch Diabetes panel 11/04/19 11/04/19 Range/Units 02:46 09:21 Sodium 137 138 (137-145) mmol/L Potassium 5.2 H 5.9 H (3.5-5.1) mmol/L Chloride 102 102 (98-107) mmol/L Carbon Dioxide 19 L 22 (22-30) mmol/L BUN 83 H 81 H (9-20) mg/dL Creatinine 5.95 H 6.29 H (0.66-1.25) mg/dL Glucose 310 H 304 H (74-99) mg/dL Calcium 9.4 9.2 (8.4-10.2) mg/dL AST 20 20 (17-59) U/L ALT 21 20 L (21-72) U/L Alkaline Phosphatase 55 58 (38-126) U/L Total Protein 6.9 7.3 (6.3-8.2) g/dL Albumin 4.2 4.3 (3.5-5.0) g/dL Calcium panel 11/04/19 11/04/19 Range/Units 02:46 09:21 Calcium 9.4 9.2 (8.4-10.2) mg/dL Albumin 4.2 4.3 (3.5-5.0) g/dL Pituitary panel 11/04/19 11/04/19 Range/Units 02:46 09:21 Sodium 137 138 (137-145) mmol/L Potassium 5.2 H 5.9 H (3.5-5.1) mmol/L Chloride 102 102 (98-107) mmol/L Carbon Dioxide 19 L 22 (22-30) mmol/L BUN 83 H 81 H (9-20) mg/dL Creatinine 5.95 H 6.29 H (0.66-1.25) mg/dL Glucose 310 H 304 H (74-99) mg/dL Calcium 9.4 9.2 (8.4-10.2) mg/dL Adrenal panel 11/04/19 11/04/19 Range/Units 02:46 09:21 Sodium 137 138 (137-145) mmol/L Potassium 5.2 H 5.9 H (3.5-5.1) mmol/L Chloride 102 102 (98-107) mmol/L Carbon Dioxide 19 L 22 (22-30) mmol/L BUN 83 H 81 H (9-20) mg/dL Creatinine 5.95 H 6.29 H (0.66-1.25) mg/dL Glucose 310 H 304 H (74-99) mg/dL Calcium 9.4 9.2 (8.4-10.2) mg/dL Total Bilirubin 0.5 0.8 (0.2-1.3) mg/dL AST 20 20 (17-59) U/L ALT 21 20 L (21-72) U/L Alkaline Phosphatase 55 58 (38-126) U/L Total Protein 6.9 7.3 (6.3-8.2) g/dL Albumin 4.2 4.3 (3.5-5.0) g/dL Assessment and Plan Assessment: Resolving abdominal pain and distention. It appears that the patient had a large volume of peritoneal fluid which has been evacuated through the CAPD catheter. His hematuria will be evaluated by urology. No surgical intervention is planned this point.
[2019-11-04 15:35] LABS: Glucose,Whole Blood 69 mg/dL (75-99)
[2019-11-04 15:56] LABS: HCT 20.1 % (39.0-53.0); MCH 30.5 pg (25.0-35.0); MCHC 32.5 g/dL (31.0-37.0); MCV 93.6 fL (80.0-100.0); Mean Platelet Volume 8.4; Platelet Count 239 k/uL (150-450); RBC 2.15 m/uL (4.30-5.90); RDW 15.7 % (11.5-15.5); WBC 8.5 k/uL (3.8-10.6)
--- NOTE | 2019-11-04 15:56 | CONS ---
CONSULTATION REASON FOR CONSULT: End-stage renal disease. HISTORY OF PRESENT ILLNESS: Patient is a 74-year-old male with end-stage renal disease, on peritoneal dialysis; started about a month or two ago. The patient follows with a adjunct communications faculty member out of town in the [facility]. He was admitted to the hospital with complaints of increased weakness and he was noted to have bright red blood in the urine. Initially there was concern about GI bleed; however, stool for occult blood is negative. Patient denies any prior history of hematuria. He is maintained on Coumadin. His INR is 1.2. It had been as high as more than 10 on 09/22/2019. Patient has had back pain. He denied any abdominal pain and his fluid has been clear per patient and his fiancee. There is no history of fever. Patient's blood pressure has not been low. His hemoglobin was 6.9 g/dL on initial admission and he is being transfused packed RBCs. PAST MEDICAL HISTORY: 1. End-stage renal disease; recently started peritoneal dialysis about a month ago. 2. Recent hernia repair out of town. 3. Type 2 diabetes. 4. Hypertension. 5. Coronary artery disease. 6. Hyperlipidemia. 7. History of CHF. 8. Hypothyroidism. PAST SURGICAL HISTORY: 1. Hernia repair. 2. CAPD catheter placement recently. SOCIAL HISTORY: Patient is a former smoker. No history of drug abuse or alcohol abuse. MEDICATIONS: Medications prior to admission included: 1. Lipitor. 2. Tricor. 3. Synthroid. 4. Flomax. 5. Lasix. 6. Keflex. 7. Insulin. 8. Lansoprazole. 9. Losartan. 10.Hydrochlorothiazide. 11.Potassium. 12.Metformin. ALLERGIES: NONE. PHYSICAL EXAMINATION: Patient is currently comfortable. He is awake. He is not in any acute distress. He is weak. Blood pressure this morning 162/89, heart rate 72 per minute. He is afebrile. EXAMINATION OF THE HEART: S1 and S2. EXAMINATION OF LUNGS: Decreased breath sounds at bases. ABDOMEN: Soft, distended, non-tender. Examination of lower extremities shows no significant edema. PAD TUFTER exam is grossly intact. LABS: Hemoglobin 6.9, white cell count 8.5. Sodium 137, potassium 5.2, another potassium of 5.9. Later on, serum creatinine 6.29. Troponin 0.047. ASSESSMENT: 1. End-stage renal disease, currently on peritoneal dialysis. CAPD fluid has been sent out for evaluation. I will also obtain a CT of the abdomen before resuming peritoneal dialysis. 2. Hypertension. Currently patient is p.o. He is maintained on p.r.n. IV hydralazine. I expect improvement in his blood pressure once his peritoneal dialysis is started. We will alternate 1.5% solution with 2.5% solution. 3. Hematuria. Urology has been consulted. Follow up on the result of the CT of the abdomen. INR was not elevated. It was at 1.2 this admission. 4. Hyperkalemia associated with end-stage renal disease. Expect improvement with initiation of dialysis. PLAN: Check CT of the abdomen and pelvis. Resume PD once imaging is clear. Transfuse packed RBCs. Consult Urology and decrease IV fluids. Repeat labs this evening. Thank you for this consultation. Will continue to follow the patient with you during his hospitalization. MMTINL / LUANAN: [id number] /
[2019-11-04 15:59] LABS: Glucose,Whole Blood 203 mg/dL (75-99)
[2019-11-04 16:01] LABS: HGB 6.6 gm/dL (13.0-17.5)
[2019-11-04 16:17] LABS: Appearance,BF Hazy; Nucleated Cells, Body Fluid 6 /uL; RBC, Body Fluid 5 /uL
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
[2019-11-04] MEDS: LEVOTHYROXINE IVP 100 MCG/5 ML VIAL IV SCH (16:39)
[2019-11-04] MEDS: PIPERACILLIN-TAZOBACTAM 3.375 GM in SODIUM CHLORIDE 0.9% 100 ML IVPB SCH (16:41)
[2019-11-04] MEDS: DIALYSIS (PERIT 1.5%) 1,000 ML 15 G/1,000 ML BAG INTRAPERIT SCH ×2 (16:44→16:45)
[2019-11-04] MEDS ORDERED: metFORMIN 500 MG TAB PO SCH (17:30)
[2019-11-04 17:35] LABS: Glucose,Whole Blood 125 mg/dL (75-99)
[2019-11-04] MEDS ORDERED: DIALYSIS (PERIT 1.5%) 2,000 ML 30 G/2,000 ML BAG INTRAPERIT SCH (18:00)
--- NOTE | 2019-11-04 18:01 | ECHOF ---
Referral Reason:htn MEASUREMENTS -------- HEIGHT: 188.0 cm WEIGHT: 113.9 kg BP: 158/70 RVIDd: 3.7 cm (< 3.3) IVSd: 1.6 cm (0.6 - 1.1) LVIDd: 4.6 cm (3.9 - 5.3) LVPWd: 1.5 cm (0.6 - 1.1) IVSs: 1.9 cm LVIDs: 2.6 cm LVPWs: 1.8 cm LA Diam: 4.2 cm (2.7 - 3.8) LAESV Index (A-L): 35.18 ml/m Ao Diam: 3.8 cm (2.0 - 3.7) AV Cusp: 2.1 cm (1.5 - 2.6) MV EXCURSION: 18.807 mm (> 18.000) MV EF SLOPE: 117 mm/s (70 - 150) EPSS: 0.4 cm MV E Josiah: 1.17 m/s MV DecT: 254 ms MV A Josiah: 0.78 m/s MV E/A Ratio: 1.50 RAP: 5.00 mmHg RVSP: 43.47 mmHg FINDINGS -------- This was a technically adequate study. The left ventricular size is normal. There is moderate concentric left ventricular hypertrophy. O verall left ventricular systolic function is normal with, an EF between 60 - 65 %. The right ventricle is mildly enlarged. LA is moderately dilated 34-39 ml/m2 The right atrium is normal in size. Interatrial and interventricular septum intact. There is mild aortic valve sclerosis. Mild mitral annular calcification present. There is trace mitral regurgitation. Mild tricuspid regurgitation present. There is mild pulmonary hypertension. The right ventricular systolic pressure, as measured by Doppler, is 43.47mmHg. There is no pulmonic regurgitation present. The aortic root is dilated measuring 3.8cm. Normal inferior vena cava with normal inspiratory collapse consistent with estimated right atrial pre ssure of 5 mmHg. There is no pericardial effusion. CONCLUSIONS -------- 1. This was a technically adequate study. 2. The left ventricular size is normal. 3. There is moderate concentric left ventricular hypertrophy. 4. Overall left ventricular systolic function is normal with, an EF between 60 - 65 %. 5. The right ventricle is mildly enlarged. 6. LA is moderately dilated 34-39 ml/m2 7. The right atrium is normal in size. 8. Interatrial and interventricular septum intact. 9. There is mild aortic valve sclerosis. 10. Mild mitral annular calcification present. 11. There is trace mitral regurgitation. 12. Mild tricuspid regurgitation present. 13. There is mild pulmonary hypertension. 14. The right ventricular systolic pressure, as measured by Doppler, is 43.47mmHg. 15. There is no pulmonic regurgitation present. 16. The aortic root is dilated measuring 3.8cm. 17. Normal inferior vena cava with normal inspiratory collapse consistent with estimated right atrial pressure of 5 mmHg. 18. There is no pericardial effusion. MULTIPLE NEEDLE STITCHER: Carito Morrissey RDCS
[2019-11-04 18:05] LABS: LDH, Body Fluid Source Ascites
[2019-11-04] MEDS: DIALYSIS (PERIT 1.5%) 2,000 ML 30 G/2,000 ML BAG INTRAPERIT SCH (18:41)
[2019-11-04 18:56] LABS: Glucose,Whole Blood 102 mg/dL (75-99)
--- NOTE | 2019-11-04 19:22 | P.GSCN ---
History of Present Illness Consult date: 11/04/19 Reason for Consult: Gross hematuria History of present illness: The patient is a 74-year-old male who came to the emergency room early this [facility], [place] with complaints of severe back pain. He was initially felt to have a possible thoracic aneurysm with dissection however a computed tomography scan of the chest showed no significant abnormality. Fluid was present within the peritoneal cavity suggestive of ascites, however in retrospect this was peritoneal dialysis fluid. The patient was noted have a hemoglobin of 7.0. He initially was felt to be anemic on the basis of a GI bleed. He was transferred to the intensive care unit and a urethral catheter was inserted which drained 325 mL of grossly bloody urine. He was apparently no difficulty in placement of the catheter at that time. The catheter was irrigated and an additional 400 mL of bloody urine drained over the next hour however the patient had previously been given IV furosemide. Renal ultrasound showed no significant abnormalities of the kidneys other than some thinning consistent with chronic kidney disease. The bladder was thick-walled and there was some debris present within the bladder. A previous renal ultrasound from 06/2018 was unremarkable with the exception of a distended bladder. The patient said that he experienced gross hematuria on October 14. At that time he says that the blood was only at the start of his urine flow. He was seen in Dr. Vidales's office and apparently was placed on an antibiotic but the patient could not recall its name. He did have a urine culture obtained on 10/19 which grew Hafnia alvei. He says that his hematuria initially resolved but he began passing blood in his urine again last week. This has persisted since then. He has been on anticoagulants intermittently and had been on warfarin in the fall but was taken off this in August when his INR was greater than 10. It's unclear whether he has been restarted on an anticoagulant. Patient has a history of chronic kidney disease and underwent placement of a pe ritoneal catheter at the time of an umbilical hernia repair in 07/2019. He underwent instruction of peritoneal dialysis last week at [facility] and says that he began doing peritoneal dialysis at home yesterday. He says that he is to use 2500 mL 4 times a day. The patient says that he usually voids every 3-4 hours during the day and once at night. He voids more frequently in the morning after he takes his diuretic. He has no previous history of gross hematuria. He has had occasional urinary tract infections in the past and was last seen by me in 07/2014. Review of Systems - Constitutional Reports fatigue, Denies chills, Denies fever - Cardiovascular Reports decreased exercise tolerance, Reports shortness of breath - Gastrointestinal Denies BRBPR, Denies constipation, Denies hematemesis Past Medical History Past Medical History: Dialysis, Hyperlipidemia, Hypertension, Thyroid Disorder History of Any Multi-Drug Resistant Organisms: None Reported Past Surgical History: No Surgical Hx Reported Additional Past Surgical History / Comment(s): placement of peritoneal dialysis catheter and repair of umbilical hernia 07/2017, colonoscopy with polypectomy in the distant past. Past Anesthesia/Blood Transfusion Reactions: No Reported Reaction Past Psychological History: No Psychological Hx Reported Smoking Status: Former smoker Past Alcohol Use History: None Reported Past Drug Use History: None Reported Medications and Allergies Home Medications Medication Instructions Recorded Confirmed Type Atorvastatin [Lipitor] 40 mg PO HS 11/13/16 11/04/19 History Fenofibrate Nanocrystallized 145 mg PO DAILY 11/13/16 11/04/19 History [Tricor] Tamsulosin HCl [Flomax] 0.4 mg PO DAILY 11/13/16 11/04/19 History Lansoprazole 30 mg PO DAILY 06/09/18 11/04/19 History Acetaminophen Tab [Tylenol Tab] 650 mg PO Q6H PRN 11/04/19 11/04/19 History Bumetanide [BUMEX] 1 mg PO HS 11/04/19 11/04/19 History Bumetanide [BUMEX] 2 mg PO DAILY 11/04/19 11/04/19 History Calcitriol [Rocaltrol] 0.25 mcg PO DIRECTED 11/04/19 11/04/19 History Carvedilol [Coreg] 3.125 mg PO BID 11/04/19 11/04/19 History Cholecalciferol [Vitamin D3 (25 1,000 unit PO DAILY 11/04/19 11/04/19 History Mcg = 1000 Iu)] Darbepoetin Fausto [Aranesp] 60 mcg IJ WE 11/04/19 11/04/19 History Folic Acid 0.4 mg PO DAILY 11/04/19 11/04/19 History Insuln Asp Prt/Insulin Aspart 16 unit SQ AC-SUPPER 11/04/19 11/04/19 History [NovoLOG MIX 70-30 VIAL] Insuln Asp Prt/Insulin Aspart 36 units SQ AC-BRKFST 11/04/19 11/04/19 History [NovoLOG MIX 70-30 VIAL] Levothyroxine Sodium [Synthroid] 150 mcg PO DAILY 11/04/19 11/04/19 History Polyethylene Glycol 3350 [Miralax] 17 gm PO DAILY 11/04/19 11/04/19 History Rivaroxaban [Xarelto] 20 mg PO DAILY 11/04/19 11/04/19 History amLODIPine [Norvasc] 10 mg PO DAILY 11/04/19 11/04/19 History oxyCODONE HCL [Roxicodone] 5 mg PO Q4H PRN 11/04/19 11/04/19 History Allergies Allergy/AdvReac Type Severity Reaction Status Date / Time No Known Allergies Allergy Verified 11/04/19 14:53 Surgical - Exam Vital Signs Temp Pulse Resp BP Pulse Ox 97.6 F 79 20 157/69 95 11/04/19 02:19 11/04/19 02:19 11/04/19 02:19 11/04/19 02:19 11/04/19 02:19 - General well developed, well nourished, chronically ill - ENT no hearing loss - Neck no masses, no lymphadectomy - Respiratory normal respiratory effort - Abdomen Abdomen: soft, non tender, no organomegaly Hernia: none - Genitourinary normal penis with no external lesions, testicles non-tender Results - Labs 11/04/19 14:56 11/04/19 09:21 Abnormal Lab Results - Last 24 Hours (Table) 11/04/19 11/04/19 11/04/19 Range/Units 02:46 02:46 02:46 RBC 2.26 L (4.30-5.90) m/uL Hgb 6.9 L* D (13.0-17.5) gm/dL Hct 22.4 L (39.0-53.0) % MCHC 30.9 L (31.0-37.0) g/dL PT 12.2 H (9.0-12.0) sec INR 1.2 H (<1.2) ABG pO2 (83-108) mmHg ABG Total CO2 (19-24) mmol/L Potassium 5.2 H (3.5-5.1) mmol/L Carbon Dioxide 19 L (22-30) mmol/L BUN 83 H (9-20) mg/dL Creatinine 5.95 H (0.66-1.25) mg/dL Glucose 310 H (74-99) mg/dL POC Glucose (mg/dL) (75-99) mg/dL ALT (21-72) U/L Troponin I (0.000-0.034) ng/mL Urine RBC (0-5) /hpf Urine WBC (0-5) /hpf Urine Bacteria (None) /hpf Crossmatch 11/04/19 11/04/19 11/04/19 Range/Units 02:46 03:43 03:43 RBC 2.25 L (4.30-5.90) m/uL Hgb 7.0 L (13.0-17.5) gm/dL Hct 21.6 L (39.0-53.0) % MCHC (31.0-37.0) g/dL PT (9.0-12.0) sec INR (<1.2) ABG pO2 (83-108) mmHg ABG Total CO2 (19-24) mmol/L Potassium (3.5-5.1) mmol/L Carbon Dioxide (22-30) mmol/L BUN (9-20) mg/dL Creatinine (0.66-1.25) mg/dL Glucose (74-99) mg/dL POC Glucose (mg/dL) (75-99) mg/dL ALT (21-72) U/L Troponin I 0.049 H* (0.000-0.034) ng/mL Urine RBC (0-5) /hpf Urine WBC (0-5) /hpf Urine Bacteria (None) /hpf Crossmatch See Detail 11/04/19 11/04/19 11/04/19 Range/Units 08:21 08:45 09:21 RBC 2.54 L (4.30-5.90) m/uL Hgb 7.7 L (13.0-17.5) gm/dL Hct 24.2 L (39.0-53.0) % MCHC (31.0-37.0) g/dL PT (9.0-12.0) sec INR (<1.2) ABG pO2 (83-108) mmHg ABG Total CO2 (19-24) mmol/L Potassium (3.5-5.1) mmol/L Carbon Dioxide (22-30) mmol/L BUN (9-20) mg/dL Creatinine (0.66-1.25) mg/dL Glucose (74-99) mg/dL POC Glucose (mg/dL) 327 H (75-99) mg/dL ALT (21-72) U/L Troponin I (0.000-0.034) ng/mL Urine RBC >182 H (0-5) /hpf Urine WBC >182 H (0-5) /hpf Urine Bacteria Rare H (None) /hpf Crossmatch 11/04/19 11/04/19 11/04/19 Range/Units 09:21 09:32 09:39 RBC (4.30-5.90) m/uL Hgb (13.0-17.5) gm/dL Hct (39.0-53.0) % MCHC (31.0-37.0) g/dL PT (9.0-12.0) sec INR (<1.2) ABG pO2 (83-108) mmHg ABG Total CO2 (19-24) mmol/L Potassium 5.9 H (3.5-5.1) mmol/L Carbon Dioxide (22-30) mmol/L BUN 81 H (9-20) mg/dL Creatinine 6.29 H (0.66-1.25) mg/dL Glucose 304 H (74-99) mg/dL POC Glucose (mg/dL) 372 H (75-99) mg/dL ALT 20 L (21-72) U/L Troponin I 0.047 H* (0.000-0.034) ng/mL Urine RBC (0-5) /hpf Urine WBC (0-5) /hpf Urine Bacteria (None) /hpf Crossmatch 11/04/19 11/04/19 11/04/19 Range/Units 10:03 10:14 11:43 RBC (4.30-5.90) m/uL Hgb (13.0-17.5) gm/dL Hct (39.0-53.0) % MCHC (31.0-37.0) g/dL PT (9.0-12.0) sec INR (<1.2) ABG pO2 72 L (83-108) mmHg ABG Total CO2 25 H (19-24) mmol/L Potassium (3.5-5.1) mmol/L Carbon Dioxide (22-30) mmol/L BUN (9-20) mg/dL Creatinine (0.66-1.25) mg/dL Glucose (74-99) mg/dL POC Glucose (mg/dL) 303 H 145 H (75-99) mg/dL ALT (21-72) U/L Troponin I (0.000-0.034) ng/mL Urine RBC (0-5) /hpf Urine WBC (0-5) /hpf Urine Bacteria (None) /hpf Crossmatch 11/04/19 Range/Units 12:38 RBC (4.30-5.90) m/uL Hgb (13.0-17.5) gm/dL Hct (39.0-53.0) % MCHC (31.0-37.0) g/dL PT (9.0-12.0) sec INR (<1.2) ABG pO2 (83-108) mmHg ABG Total CO2 (19-24) mmol/L Potassium (3.5-5.1) mmol/L Carbon Dioxide (22-30) mmol/L BUN (9-20) mg/dL Creatinine (0.66-1.25) mg/dL Glucose (74-99) mg/dL POC Glucose (mg/dL) 103 H (75-99) mg/dL ALT (21-72) U/L Troponin I (0.000-0.034) ng/mL Urine RBC (0-5) /hpf Urine WBC (0-5) /hpf Urine Bacteria (None) /hpf Crossmatch Diabetes panel 11/04/19 11/04/19 Range/Units 02:46 09:21 Sodium 137 138 (137-145) mmol/L Potassium 5.2 H 5.9 H (3.5-5.1) mmol/L Chloride 102 102 (98-107) mmol/L Carbon Dioxide 19 L 22 (22-30) mmol/L BUN 83 H 81 H (9-20) mg/dL Creatinine 5.95 H 6.29 H (0.66-1.25) mg/dL Glucose 310 H 304 H (74-99) mg/dL Calcium 9.4 9.2 (8.4-10.2) mg/dL AST 20 20 (17-59) U/L ALT 21 20 L (21-72) U/L Alkaline Phosphatase 55 58 (38-126) U/L Total Protein 6.9 7.3 (6.3-8.2) g/dL Albumin 4.2 4.3 (3.5-5.0) g/dL Calcium panel 11/04/19 11/04/19 Range/Units 02:46 09:21 Calcium 9.4 9.2 (8.4-10.2) mg/dL Albumin 4.2 4.3 (3.5-5.0) g/dL Pituitary panel 11/04/19 11/04/19 Range/Units 02:46 09:21 Sodium 137 138 (137-145) mmol/L Potassium 5.2 H 5.9 H (3.5-5.1) mmol/L Chloride 102 102 (98-107) mmol/L Carbon Dioxide 19 L 22 (22-30) mmol/L BUN 83 H 81 H (9-20) mg/dL Creatinine 5.95 H 6.29 H (0.66-1.25) mg/dL Glucose 310 H 304 H (74-99) mg/dL Calcium 9.4 9.2 (8.4-10.2) mg/dL Adrenal panel 11/04/19 11/04/19 Range/Units 02:46 09:21 Sodium 137 138 (137-145) mmol/L Potassium 5.2 H 5.9 H (3.5-5.1) mmol/L Chloride 102 102 (98-107) mmol/L Carbon Dioxide 19 L 22 (22-30) mmol/L BUN 83 H 81 H (9-20) mg/dL Creatinine 5.95 H 6.29 H (0.66-1.25) mg/dL Glucose 310 H 304 H (74-99) mg/dL Calcium 9.4 9.2 (8.4-10.2) mg/dL Total Bilirubin 0.5 0.8 (0.2-1.3) mg/dL AST 20 20 (17-59) U/L ALT 21 20 L (21-72) U/L Alkaline Phosphatase 55 58 (38-126) U/L Total Protein 6.9 7.3 (6.3-8.2) g/dL Albumin 4.2 4.3 (3.5-5.0) g/dL Assessment and Plan (1) Gross hematuria Narrative/Plan: The source of the patient's gross hematuria is not clear. The bleeding he experienced 3 weeks ago was supposedly at the start of his urine flow which could have been from the base of the bladder or prostate. It is also possible that it was from an acute urinary tract infection. If he is on an anticoagulant this may have worsened the bleeding. Renal ultrasound showed no gross renal abnormality. CT scan of the abdomen ideally with IV contrast would be a much better study to evaluate gross hematuria and hopefully this can be set up. The patient's bladder will be irrigated periodically. He may need a larger diameter catheter if there are any significant clots present within the bladder. Cystoscopy will eventually need to be set up for further evaluation. Current Visit: Yes Status: Acute Code(s): R31.0 - GROSS HEMATURIA SNOMED Code(s): 898056230
[2019-11-04 19:37] LABS: Glucose, BF Source Ascites; Glucose, Body Fluid 717 mg/dL
[2019-11-04 19:49] LABS: Glucose,Whole Blood 142 mg/dL (75-99)
[2019-11-04 19:57] LABS: Total Protein, Body Fluid 64.8 mg/dL
[2019-11-04 20:48] LABS: Glucose,Whole Blood 165 mg/dL (75-99)
[2019-11-04] MEDS: METOPROLOL TARTRATE 25 MG TAB PO SCH (20:55)
--- NOTE | 2019-11-04 21:23 | CONS ---
CONSULTATION DATE OF DICTATION: November 04, 2019. REQUESTING PHYSICIAN: Dr. Walter. REASON FOR CONSULTATION: Anemia, questionable GI bleed. HISTORY OF PRESENT ILLNESS: The patient is a 74-year-old pleasant white male with a history of end-stage renal disease, who was started on peritoneal dialysis yesterday morning. He was admitted to the hospital yesterday when he presented with worsening lower back pain, abdominal distention, and gross hematuria. The patient has history of atrial fibrillation and has been on Xarelto 20 mg twice daily. He came to the emergency room and was noted to have anemia with a hemoglobin of 7.1 and hypertension, and hence he was transferred to the intensive care unit. Gastroenterology is consulted for possible GI bleed. Since being in the intensive care unit, patient did not have any episodes of abdominal pain. He had dialysate drained from the peritoneal cavity and approximately 5.8 L was removed. After that, the abdominal distention has significantly improved. Nephrology following the patient closely. He will be started on peritoneal dialysis later today. The CT scan of the abdomen and pelvis is normal. The patient prior to hospitalization, patient denies any abdominal pain. He reports no nausea, vomiting. No rectal bleeding or melena. Since being in the hospital, he had gross hematuria and urology has been consulted. Xarelto has been on hold. PAST MEDICAL HISTORY: Significant for hypertension, hyperlipidemia, end-stage renal disease, peritoneal dialysis started yesterday, hypothyroidism, history of diastolic congestive heart failure, diabetes mellitus. MEDICATIONS: At home include Lipitor, Tricor, Flomax, Synthroid, Lasix, Keflex, insulin, losartan, potassium chloride, metformin. ALLERGIES: None. SOCIAL HISTORY: No smoking. Former smoker. No alcohol use. FAMILY HISTORY: Unremarkable. PAST SURGICAL HISTORY: Dialysis catheter placement recently at [facility]. REVIEW OF SYSTEMS: CARDIOPULMONARY: He denies any chest pain or shortness of breath. Genitourinary: Severe hematuria. Neurology unremarkable. Psychiatric unremarkable. ENT/vision unremarkable. CONSTITUTIONAL: No recent weight loss. No fever, chills, night sweats. HEMATOLOGY unremarkable other than severe anemia. ENT/vision unremarkable. CONSTITUTIONAL: No recent weight loss. No fever, chills, night sweats. PHYSICAL EXAMINATION: He appears comfortable. No apparent distress. Vital signs are stable. Blood pressure is 144/104, pulse 83, temperature 98. HEENT examination unremarkable. Conjunctivae pink. Sclerae anicteric. Oral cavity no lesions. NECK: No JVD or lymph node enlargement. CHEST: Clear to auscultation. HEART: Regular rate and rhythm. ABDOMEN: Soft. It was nondistended. PD catheter in place. EXTREMITIES: No pedal edema. NEUROLOGICAL: Alert and oriented times three. No focal deficits. Mota catheter has significant amount of blood in the Mota bag. LABS: At the time of admission to the hospital: Hemoglobin was 7.7 and today it is 6.6. He is currently receiving 1 unit of PRBC transfusion. WBC 8.5, platelets normal. Basic metabolic panel is within normal limits. BUN 81, creatinine 6.29. Stool occult blood was negative. IMPRESSION: 1. Severe anemia, secondary to hematuria. Clinically no evidence of active gastrointestinal bleed. In fact, patient had a normal bowel movement early this morning. Stool was Hemoccult negative. 2. Severe hematuria, Xarelto on hold. Urology following the patient closely. 3. End-stage renal disease, on peritoneal dialysis that was started yesterday. The patient presents with abdominal distention after the peritoneal dialysis, the dialysate was drained. Abdominal distention has resolved. However, he is scheduled for a CT of the abdomen and pelvis to investigate this further. RECOMMENDATIONS: Since there is no evidence of active GI problems and clinically no active gastrointestinal bleed. We will sign off at this time. Thank you for this consultation. MMODL / IJN: [id number] /
[2019-11-04 21:39] LABS: HCT 23.3 % (39.0-53.0); HGB 7.6 gm/dL (13.0-17.5); MCHC 32.7 g/dL (31.0-37.0); MCV 94.6 fL (80.0-100.0); Mean Platelet Volume 8.2; Platelet Count 228 k/uL (150-450); RBC 2.46 m/uL (4.30-5.90); RDW 15.6 % (11.5-15.5); WBC 8.4 k/uL (3.8-10.6)
[2019-11-04 21:49] LABS: Calcium 8.8 mg/dL (8.4-10.2); Potassium 5.2 mmol/L (3.5-5.1)
[2019-11-04] MEDS: DIALYSIS (PERIT 2.5%) 2,000 ML 50 G/2,000 ML BAG INTRAPERIT SCH (23:53)
[2019-11-05] MEDS ORDERED: DIALYSIS (PERIT 2.5%) 2,000 ML 50 G/2,000 ML BAG INTRAPERIT SCH
[2019-11-05 00:01] LABS: Glucose,Whole Blood 211 mg/dL (75-99)
[2019-11-05] MEDS: PIPERACILLIN-TAZOBACTAM 3.375 GM in SODIUM CHLORIDE 0.9% 100 ML IVPB SCH ×2 (00:58→12:14)
[2019-11-05 01:24] LABS: Glucose,Whole Blood 177 mg/dL (75-99)
[2019-11-05 02:26] LABS: Glucose,Whole Blood 145 mg/dL (75-99)
[2019-11-05 03:29] LABS: Glucose,Whole Blood 122 mg/dL (75-99)
[2019-11-05 05:03] LABS: Glucose,Whole Blood 116 mg/dL (75-99)
[2019-11-05 05:15] LABS: Basophils # (A) 0.1 k/uL (0-0.2); Basophils % (A) 1 %; Eosinophils # (A) 0.7 k/uL (0-0.7); Eosinophils % (A) 9 %; HGB 7.1 gm/dL (13.0-17.5); Hypochromasia Slight; Lymphocytes # (A) 1.1 k/uL (1.0-4.8); Lymphocytes % (A) 14 %; MCH 30.6 pg (25.0-35.0); MCHC 32.2 g/dL (31.0-37.0); MCV 94.8 fL (80.0-100.0); Mean Platelet Volume 10.4; Monocytes # (A) 0.7 k/uL (0-1.0); Monocytes % (A) 8 %; Neutrophils # (A) 5.4 k/uL (1.3-7.7); Neutrophils % (A) 66 %; Platelet Count 229 k/uL (150-450); RBC 2.32 m/uL (4.30-5.90); RDW 15.9 % (11.5-15.5); WBC 8.1 k/uL (3.8-10.6)
[2019-11-05] MEDS: DIALYSIS (PERIT 1.5%) 2,000 ML 30 G/2,000 ML BAG INTRAPERIT SCH ×2 (05:29→17:59)
[2019-11-05] MEDS: SODIUM CHLORIDE 0.9% 1,000 ML IV SCH ×3 (05:30→20:33)
[2019-11-05 05:32] LABS: Calcium 8.5 mg/dL (8.4-10.2); Potassium 5.3 mmol/L (3.5-5.1)
[2019-11-05 06:14] LABS: Glucose,Whole Blood 129 mg/dL (75-99)
--- NOTE | 2019-11-05 06:23 | XR ---
EXAMINATION TYPE: XR chest 1V portable DATE OF EXAM: 11/05/2019 HISTORY: sob . REFERENCE: Previous study dated 11/04/2019. FINDINGS: The heart remains enlarged. There is minimal left basilar airspace disease, improved from p revious. The right lung is clear. Pleural spaces are clear. IMPRESSION: 1. CARDIOMEGALY. 2. IMPROVED AERATION, LEFT LUNG BASE.
[2019-11-05 07:40] LABS: Glucose,Whole Blood 135 mg/dL (75-99)
[2019-11-05] MEDS ORDERED: DESMOPRESSIN ACETATE 30 MCG in SODIUM CHLORIDE 0.9% 50 ML IVPB ONE (09:16)
--- NOTE | 2019-11-05 09:22 | P.PN ---
Subjective Progress Note Date: 11/05/19 Seen and examined for the follow-up of ESRD. 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 3 week history of intermittent gross hematuria got worse. Denies any dysuria or flank pain. No nausea vomiting diarrhea. No bloody effluent. Objective - Vital Signs Vital signs: Vital Signs Temp 98.4 F 11/05/19 03:00 Pulse 76 11/05/19 07:00 Resp 20 11/05/19 07:00 BP 119/52 11/05/19 07:00 Pulse Ox 98 11/05/19 07:00 Intake & Output 11/04/19 11/05/19 11/05/19 18:59 06:59 18:59 Intake Total 7761.282 8958.385 Output Total 2004 1325 Balance -388.503 194.385 Weight 113.852 kg 118.7 kg Intake: IV 1290 1200 D10 250 Sodium Chloride 0.9% 1, 940 1200 000 ml @ 20 mls/hr IV . Q24H [facility] Rx#:[id number] zosyn 100 Intake, IV Titration 16.497 9.385 Amount Insulin Regular 100 unit 16.497 9.385 In Sodium Chloride 0.9% 100 ml @ Per Protocol IV .Q0M [facility] Rx#:[id number] Blood Product 310 310 Rc As-1 Unit 310 [id number] Rc Pheresis As-3 Unit 0 310 [id number] Output: Urine 2004 1325 Other: Voiding Method Indwelling Catheter Indwelling Catheter - Exam No acute distress S1-S2 heard Lungs clear PD catheter Trace edema Mota catheter with bloody red urine. - Labs CBC & Chem 7: 11/05/19 04:54 11/05/19 04:54 Labs: Abnormal Lab Results - Last 24 Hours (Table) 11/04/19 11/04/19 11/04/19 Range/Units 03:43 08:45 09:21 RBC 2.54 L (4.30-5.90) m/uL Hgb 7.7 L (13.0-17.5) gm/dL Hct 24.2 L (39.0-53.0) % RDW (11.5-15.5) % ABG pO2 (83-108) mmHg ABG Total CO2 (19-24) mmol/L Potassium (3.5-5.1) mmol/L BUN (9-20) mg/dL Creatinine (0.66-1.25) mg/dL Glucose (74-99) mg/dL POC Glucose (mg/dL) (75-99) mg/dL ALT (21-72) U/L Troponin I (0.000-0.034) ng/mL Urine RBC >182 H (0-5) /hpf Urine WBC >182 H (0-5) /hpf Urine Bacteria Rare H (None) /hpf Crossmatch See Detail 11/04/19 11/04/19 11/04/19 Range/Units 09:21 09:32 09:39 RBC (4.30-5.90) m/uL Hgb (13.0-17.5) gm/dL Hct (39.0-53.0) % RDW (11.5-15.5) % ABG pO2 (83-108) mmHg ABG Total CO2 (19-24) mmol/L Potassium 5.9 H (3.5-5.1) mmol/L BUN 81 H (9-20) mg/dL Creatinine 6.29 H (0.66-1.25) mg/dL Glucose 304 H (74-99) mg/dL POC Glucose (mg/dL) 372 H (75-99) mg/dL ALT 20 L (21-72) U/L Troponin I 0.047 H* (0.000-0.034) ng/mL Urine RBC (0-5) /hpf Urine WBC (0-5) /hpf Urine Bacteria (None) /hpf Crossmatch 11/04/19 11/04/19 11/04/19 Range/Units 10:03 10:14 11:43 RBC (4.30-5.90) m/uL Hgb (13.0-17.5) gm/dL Hct (39.0-53.0) % RDW (11.5-15.5) % ABG pO2 72 L (83-108) mmHg ABG Total CO2 25 H (19-24) mmol/L Potassium (3.5-5.1) mmol/L BUN (9-20) mg/dL Creatinine (0.66-1.25) mg/dL Glucose (74-99) mg/dL POC Glucose (mg/dL) 303 H 145 H (75-99) mg/dL ALT (21-72) U/L Troponin I (0.000-0.034) ng/mL Urine RBC (0-5) /hpf Urine WBC (0-5) /hpf Urine Bacteria (None) /hpf Crossmatch 11/04/19 11/04/19 11/04/19 Range/Units 12:38 14:28 14:40 RBC (4.30-5.90) m/uL Hgb (13.0-17.5) gm/dL Hct (39.0-53.0) % RDW (11.5-15.5) % ABG pO2 (83-108) mmHg ABG Total CO2 (19-24) mmol/L Potassium (3.5-5.1) mmol/L BUN (9-20) mg/dL Creatinine (0.66-1.25) mg/dL Glucose (74-99) mg/dL POC Glucose (mg/dL) 103 H 74 L (75-99) mg/dL ALT (21-72) U/L Troponin I 0.045 H* (0.000-0.034) ng/mL Urine RBC (0-5) /hpf Urine WBC (0-5) /hpf Urine Bacteria (None) /hpf Crossmatch 11/04/19 11/04/19 11/04/19 Range/Units 14:56 15:24 15:48 RBC 2.15 L (4.30-5.90) m/uL Hgb 6.6 L* (13.0-17.5) gm/dL Hct 20.1 L (39.0-53.0) % RDW 15.7 H (11.5-15.5) % ABG pO2 (83-108) mmHg ABG Total CO2 (19-24) mmol/L Potassium (3.5-5.1) mmol/L BUN (9-20) mg/dL Creatinine (0.66-1.25) mg/dL Glucose (74-99) mg/dL POC Glucose (mg/dL) 69 L 203 H (75-99) mg/dL ALT (21-72) U/L Troponin I (0.000-0.034) ng/mL Urine RBC (0-5) /hpf Urine WBC (0-5) /hpf Urine Bacteria (None) /hpf Crossmatch 11/04/19 11/04/19 11/04/19 Range/Units 17:23 18:45 19:38 RBC (4.30-5.90) m/uL Hgb (13.0-17.5) gm/dL Hct (39.0-53.0) % RDW (11.5-15.5) % ABG pO2 (83-108) mmHg ABG Total CO2 (19-24) mmol/L Potassium (3.5-5.1) mmol/L BUN (9-20) mg/dL Creatinine (0.66-1.25) mg/dL Glucose (74-99) mg/dL POC Glucose (mg/dL) 125 H 102 H 142 H (75-99) mg/dL ALT (21-72) U/L Troponin I (0.000-0.034) ng/mL Urine RBC (0-5) /hpf Urine WBC (0-5) /hpf Urine Bacteria (None) /hpf Crossmatch 11/04/19 11/04/19 11/04/19 Range/Units 20:37 21:20 21:20 RBC 2.46 L (4.30-5.90) m/uL Hgb 7.6 L (13.0-17.5) gm/dL Hct 23.3 L (39.0-53.0) % RDW 15.6 H (11.5-15.5) % ABG pO2 (83-108) mmHg ABG Total CO2 (19-24) mmol/L Potassium 5.2 H (3.5-5.1) mmol/L BUN 74 H (9-20) mg/dL Creatinine 5.86 H (0.66-1.25) mg/dL Glucose 179 H (74-99) mg/dL POC Glucose (mg/dL) 165 H (75-99) mg/dL ALT (21-72) U/L Troponin I (0.000-0.034) ng/mL Urine RBC (0-5) /hpf Urine WBC (0-5) /hpf Urine Bacteria (None) /hpf Crossmatch 11/04/19 11/04/19 11/05/19 Range/Units 21:20 23:50 01:13 RBC (4.30-5.90) m/uL Hgb (13.0-17.5) gm/dL Hct (39.0-53.0) % RDW (11.5-15.5) % ABG pO2 (83-108) mmHg ABG Total CO2 (19-24) mmol/L Potassium (3.5-5.1) mmol/L BUN (9-20) mg/dL Creatinine (0.66-1.25) mg/dL Glucose (74-99) mg/dL POC Glucose (mg/dL) 211 H 177 H (75-99) mg/dL ALT (21-72) U/L Troponin I 0.050 H* (0.000-0.034) ng/mL Urine RBC (0-5) /hpf Urine WBC (0-5) /hpf Urine Bacteria (None) /hpf Crossmatch 11/05/19 11/05/19 11/05/19 Range/Units 02:15 03:18 04:51 RBC (4.30-5.90) m/uL Hgb (13.0-17.5) gm/dL Hct (39.0-53.0) % RDW (11.5-15.5) % ABG pO2 (83-108) mmHg ABG Total CO2 (19-24) mmol/L Potassium (3.5-5.1) mmol/L BUN (9-20) mg/dL Creatinine (0.66-1.25) mg/dL Glucose (74-99) mg/dL POC Glucose (mg/dL) 145 H 122 H 116 H (75-99) mg/dL ALT (21-72) U/L Troponin I (0.000-0.034) ng/mL Urine RBC (0-5) /hpf Urine WBC (0-5) /hpf Urine Bacteria (None) /hpf Crossmatch 11/05/19 11/05/19 11/05/19 Range/Units 04:54 04:54 06:03 RBC 2.32 L (4.30-5.90) m/uL Hgb 7.1 L (13.0-17.5) gm/dL Hct 22.0 L (39.0-53.0) % RDW 15.9 H (11.5-15.5) % ABG pO2 (83-108) mmHg ABG Total CO2 (19-24) mmol/L Potassium 5.3 H (3.5-5.1) mmol/L BUN 71 H (9-20) mg/dL Creatinine 5.60 H (0.66-1.25) mg/dL Glucose 107 H (74-99) mg/dL POC Glucose (mg/dL) 129 H (75-99) mg/dL ALT (21-72) U/L Troponin I (0.000-0.034) ng/mL Urine RBC (0-5) /hpf Urine WBC (0-5) /hpf Urine Bacteria (None) /hpf Crossmatch 11/05/19 Range/Units 07:29 RBC (4.30-5.90) m/uL Hgb (13.0-17.5) gm/dL Hct (39.0-53.0) % RDW (11.5-15.5) % ABG pO2 (83-108) mmHg ABG Total CO2 (19-24) mmol/L Potassium (3.5-5.1) mmol/L BUN (9-20) mg/dL Creatinine (0.66-1.25) mg/dL Glucose (74-99) mg/dL POC Glucose (mg/dL) 135 H (75-99) mg/dL ALT (21-72) U/L Troponin I (0.000-0.034) ng/mL Urine RBC (0-5) /hpf Urine WBC (0-5) /hpf Urine Bacteria (None) /hpf Crossmatch Microbiology - Last 24 Hours (Table) 11/04/19 11:35 Gram Stain - Preliminary Ascites Fluid Body Fluid Culture - Preliminary 11/04/19 11:35 Anaerobic Culture - Preliminary Peritoneal Fluid 11/04/19 11:35 Fungal Culture - Preliminary Peritoneal Fluid 11/04/19 08:45 Urine Culture - Preliminary Urine,Voided Assessment and Plan Assessment: #1 gross hematuria suspect lower genitourinary pathology. #2 ESRD on CAPD #3 hypertension with ESRD #4 metabolic bone disease with ESRD #5 anemia multifactorial with gross hematuria #6 mild hyperkalemia. Plan: #1 continue CAPD 1.5% and 2.5% alternating 2 L. #2 given a dose of DDAVP for hematuria. Appreciate urology input. #3 add PATRICIA and check IV iron. #4 ESRD medications #5 add Lasix
[2019-11-05 09:23] LABS: Glucose,Whole Blood 141 mg/dL (75-99)
[2019-11-05] MEDS: METOPROLOL TARTRATE 25 MG TAB PO SCH ×2 (09:28→20:32)
[2019-11-05] MEDS: PANTOPRAZOLE 40 MG/10 ML VIAL IV SCH (09:28)
[2019-11-05] MEDS: LEVOTHYROXINE IVP 100 MCG/5 ML VIAL IV SCH (09:28)
[2019-11-05] MEDS: TAMSULOSIN 0.4 MG CAP.ER.24H PO SCH (09:28)
[2019-11-05] MEDS: ATORVASTATIN 40 MG TAB PO SCH (09:34)
[2019-11-05] MEDS: FUROSEMIDE 80 MG TAB PO SCH ×2 (10:19→16:26)
[2019-11-05] MEDS: FOLIC ACID-VIT B COMPLEX-VIT C 1 CAP PO SCH (10:19)
--- NOTE | 2019-11-05 11:27 | P.PN ---
Subjective Progress Note Date: 11/05/19 74-year-old male one of Dr. Vidales patient with end-stage renal disease on [place] dialysis done it through nephrology group at [place] related to [facility]. Patient is on of Dr. Vidales patient was known to have history of atherosclerotic heart disease, hypertension, hyperlipidemia, diastolic congestive heart failure, insulin-dependent diabetes and advance kidney disease who apparently had 3 hernia repair in July 2019 and had CAPD catheter placement at [facility] same time and had started on peritoneal dialysis over the last few weeks. Patient presented to demurs department today at [facility] complaining of worsening lower back pain along with abdominal pain and distention and gross hematuria with questionable of bright red blood per rectum. He was anemic with hemoglobin of 7.1 hemodynamically not stable at the time hypotensive and hypoxic was started on blood transfusion and admit patient initially to the floor but was overflow in the ICU patient become more instable had more hemorrhage and more bleeding specially hematuria mild hypoxia worsening shortness of breath with distended abdomen looks like he had over 4-5 L of CAPD fluid was never drained consult intensive care along with nephrology and urology his troponin was elevated we'll consult cardiology as well and for whatever we have reason patient has been on anticoagulation with severe coagulopathy until 2 weeks ago apparently was moving into one of the oral hypoglycemic agent most likely Eliquis, patient doesn't remember the dose which made the bleeding much worse he doesn't remember why he is on medication the first place but he does seen a magnetic tape typewriter operator at [facility] which he believes was on it for nonsustained A. fib. GI bleed kind of was excluded with negative Hemoccult and no blood coming out of the rectum. 11/05: The patient is seen and followed by multiple consultants. Dr. Herzog is following and obtaining workup done at [facility]. Patient's primary magnetic tape typewriter operator is Dr. Spain. He is added and Lopressor 25 mg twice daily and stopped fenofibrate with plan to continue statin only. Echocardiogram reveals EF of 60-65% with moderate concentric left ventricular hypertrophy, mild aortic valve sclerosis, trace mitral regurgitation, mild tricuspid regurgitation, mild pulmonary hypertension. Patient is followed by Dr. Spaulding for intensive care management. Patient is on broad-spectrum antibiotics for coverage of abdominal sepsis and cystitis. Patient is followed by general surgery Dr. Day. No plan for any surgical intervention. Dr. León has evaluated for gross hematuria. Patient's bladder to be irrigated periodically. He may need a larger diameter catheter if there is any significant clots present within the bladder. Cystoscopy will eventually need to be set up for further evaluation. Dr. Oropeza is following for end-stage renal disease on CAPD. Fluid was sent for evaluation. CAT scan of the abdomen to be ordered before resuming peritoneal dialysis. Patient was evaluated by Dr. Denton for severe anemia secondary to hematuria. Xarelto is on hold. CAT scan of the abdomen and pelvis with contrast completed yesterday reveals small amount of ascites not significant for patient on peritoneal dialysis. Well formed small to moderate size anterior left pelvic fluid collection. Suspect pseudocyst related. 2 nail dialysis. Other etiologies cannot be excluded. Abnormal bladder wall thickening may reflect product of underlying neurogenic bladder. Repeat chest x-ray reveals cardiomegaly. Improved aeration left lung base. Repeat lab work this morning reveals a hemoglobin of 7.1, potassium 5.3, BUN 71 creatinine 5.60. Blood sugars running between 107 and 145. Patient is status post 2 units of packed R BCs. Paracentesis has been canceled as fluid was able to be drawn off peritoneal dialysis catheter. Patient was resumed on CAPD yesterday. Mota catheter draining bloody urine, no clots noted. Xarelto has been on hold. This is in place because of atrial fibrillation. Patient started on Lasix 80 mg twice daily and DDAVP has been ordered. Patient has been taken off insulin drip and we will start lower dose of 7030 insulin along with NovoLog scale. Review of Systems CONSTITUTIONAL: Looks much older than his age in nod respiratory distress. EYES: No icterus sclerae, no conjunctivitis. EARS, NOSE, MOUTH, THROAT, and FACE: No sore throat, lymphadenopathy, carotid bruits or deformity. RESPIRATORY: Mild shortness of breath. CARDIOVASCULAR: Positive PND orthopnea palpitation or angina. GASTROINTESTINAL: Positive abdominal pain with distention nausea no vomiting. no rectal bleed, no distention or masses. GENITOURINARY: Positive hematuria more gross with significant clot. INTEGUMENT/BREAST: Negative for any muscular injury with mild osteoarthritis.. HEMATOLOGIC/LYMPHATIC: Negative for bleed or purpura. MUSCULOSKELTAL: Negative for Myalgia or arthralgia. NEURLOGICAL: No LOC, Sz or syncope, blurred vision dizziness or abnormality.. BEHAVIORAL/PSYCH: Negative. ENDOCRINE: Negative. Objective - Vital Signs Vital signs: Vital Signs Temp 98.4 F 11/05/19 03:00 Pulse 76 11/05/19 07:00 Resp 20 11/05/19 07:00 BP 119/52 11/05/19 07:00 Pulse Ox 98 11/05/19 07:00 Intake & Output 11/04/19 11/05/19 11/05/19 18:59 06:59 18:59 Intake Total 4606.981 9114.385 Output Total 2004 1325 Balance -388.503 194.385 Weight 113.852 kg 118.7 kg Intake: IV 1290 1200 D10 250 Sodium Chloride 0.9% 1, 940 1200 000 ml @ 20 mls/hr IV . Q24H [facility] Rx#:[id number] zosyn 100 Intake, IV Titration 16.497 9.385 Amount Insulin Regular 100 unit 16.497 9.385 In Sodium Chloride 0.9% 100 ml @ Per Protocol IV .Q0M [facility] Rx#:[id number] Blood Product 310 310 Rc As-1 Unit 310 [id number] Rc Pheresis As-3 Unit 0 310 [id number] Output: Urine 2004 1325 Other: Voiding Method Indwelling Catheter Indwelling Catheter - Exam General Appearance: Patient resting in the ICU bed and appears to be comfortable and in no acute distress. No respiratory distress noted.. Neck HEENT: Supple, no lymphadenopathy, no thyroid enlargement, no carotid bruits. Lungs: Decreased breath sound bilaterally without rhonchi no crackles positive mild expiratory wheezes. Chest Wall: Decrease expansion with deep inspiration no tenderness and no deformity was found on exam, no costochondral pain or discomfort. Heart: Regular rate and rhythm, S1, S2 positive history +5 cm JVD with systolic murmur. Back: Symmetric, no curvature, ROM normal, no CVA tenderness. Abdomen: No abdominal distention, CAPD catheter in place, no tenderness. Mota catheter draining bloody urine without clots. Extremities: Trace edema slight change in color and mild dermatitis decreased pulses bilaterally. Pulses: 2+ and symmetric. Skin: Skin color, texture, tugor normal, no rashes or lesions. Neurologic: Alert and oriented 3 generalized weakness no focal deficit. - Labs CBC & Chem 7: 11/05/19 04:54 11/05/19 04:54 Labs: Abnormal Lab Results - Last 24 Hours (Table) 11/04/19 11/04/19 11/04/19 Range/Units 03:43 08:21 08:45 RBC (4.30-5.90) m/uL Hgb (13.0-17.5) gm/dL Hct (39.0-53.0) % RDW (11.5-15.5) % ABG pO2 (83-108) mmHg ABG Total CO2 (19-24) mmol/L Potassium (3.5-5.1) mmol/L BUN (9-20) mg/dL Creatinine (0.66-1.25) mg/dL Glucose (74-99) mg/dL POC Glucose (mg/dL) 327 H (75-99) mg/dL ALT (21-72) U/L Troponin I (0.000-0.034) ng/mL Urine RBC >182 H (0-5) /hpf Urine WBC >182 H (0-5) /hpf Urine Bacteria Rare H (None) /hpf Crossmatch See Detail 11/04/19 11/04/19 11/04/19 Range/Units 09:21 09:21 09:32 RBC 2.54 L (4.30-5.90) m/uL Hgb 7.7 L (13.0-17.5) gm/dL Hct 24.2 L (39.0-53.0) % RDW (11.5-15.5) % ABG pO2 (83-108) mmHg ABG Total CO2 (19-24) mmol/L Potassium 5.9 H (3.5-5.1) mmol/L BUN 81 H (9-20) mg/dL Creatinine 6.29 H (0.66-1.25) mg/dL Glucose 304 H (74-99) mg/dL POC Glucose (mg/dL) (75-99) mg/dL ALT 20 L (21-72) U/L Troponin I 0.047 H* (0.000-0.034) ng/mL Urine RBC (0-5) /hpf Urine WBC (0-5) /hpf Urine Bacteria (None) /hpf Crossmatch 11/04/19 11/04/19 11/04/19 Range/Units 09:39 10:03 10:14 RBC (4.30-5.90) m/uL Hgb (13.0-17.5) gm/dL Hct (39.0-53.0) % RDW (11.5-15.5) % ABG pO2 72 L (83-108) mmHg ABG Total CO2 25 H (19-24) mmol/L Potassium (3.5-5.1) mmol/L BUN (9-20) mg/dL Creatinine (0.66-1.25) mg/dL Glucose (74-99) mg/dL POC Glucose (mg/dL) 372 H 303 H (75-99) mg/dL ALT (21-72) U/L Troponin I (0.000-0.034) ng/mL Urine RBC (0-5) /hpf Urine WBC (0-5) /hpf Urine Bacteria (None) /hpf Crossmatch 11/04/19 11/04/19 11/04/19 Range/Units 11:43 12:38 14:28 RBC (4.30-5.90) m/uL Hgb (13.0-17.5) gm/dL Hct (39.0-53.0) % RDW (11.5-15.5) % ABG pO2 (83-108) mmHg ABG Total CO2 (19-24) mmol/L Potassium (3.5-5.1) mmol/L BUN (9-20) mg/dL Creatinine (0.66-1.25) mg/dL Glucose (74-99) mg/dL POC Glucose (mg/dL) 145 H 103 H 74 L (75-99) mg/dL ALT (21-72) U/L Troponin I (0.000-0.034) ng/mL Urine RBC (0-5) /hpf Urine WBC (0-5) /hpf Urine Bacteria (None) /hpf Crossmatch 11/04/19 11/04/19 11/04/19 Range/Units 14:40 14:56 15:24 RBC 2.15 L (4.30-5.90) m/uL Hgb 6.6 L* (13.0-17.5) gm/dL Hct 20.1 L (39.0-53.0) % RDW 15.7 H (11.5-15.5) % ABG pO2 (83-108) mmHg ABG Total CO2 (19-24) mmol/L Potassium (3.5-5.1) mmol/L BUN (9-20) mg/dL Creatinine (0.66-1.25) mg/dL Glucose (74-99) mg/dL POC Glucose (mg/dL) 69 L (75-99) mg/dL ALT (21-72) U/L Troponin I 0.045 H* (0.000-0.034) ng/mL Urine RBC (0-5) /hpf Urine WBC (0-5) /hpf Urine Bacteria (None) /hpf Crossmatch 11/04/19 11/04/19 11/04/19 Range/Units 15:48 17:23 18:45 RBC (4.30-5.90) m/uL Hgb (13.0-17.5) gm/dL Hct (39.0-53.0) % RDW (11.5-15.5) % ABG pO2 (83-108) mmHg ABG Total CO2 (19-24) mmol/L Potassium (3.5-5.1) mmol/L BUN (9-20) mg/dL Creatinine (0.66-1.25) mg/dL Glucose (74-99) mg/dL POC Glucose (mg/dL) 203 H 125 H 102 H (75-99) mg/dL ALT (21-72) U/L Troponin I (0.000-0.034) ng/mL Urine RBC (0-5) /hpf Urine WBC (0-5) /hpf Urine Bacteria (None) /hpf Crossmatch 11/04/19 11/04/19 11/04/19 Range/Units 19:38 20:37 21:20 RBC (4.30-5.90) m/uL Hgb (13.0-17.5) gm/dL Hct (39.0-53.0) % RDW (11.5-15.5) % ABG pO2 (83-108) mmHg ABG Total CO2 (19-24) mmol/L Potassium 5.2 H (3.5-5.1) mmol/L BUN 74 H (9-20) mg/dL Creatinine 5.86 H (0.66-1.25) mg/dL Glucose 179 H (74-99) mg/dL POC Glucose (mg/dL) 142 H 165 H (75-99) mg/dL ALT (21-72) U/L Troponin I (0.000-0.034) ng/mL Urine RBC (0-5) /hpf Urine WBC (0-5) /hpf Urine Bacteria (None) /hpf Crossmatch 11/04/19 11/04/19 11/04/19 Range/Units 21:20 21:20 23:50 RBC 2.46 L (4.30-5.90) m/uL Hgb 7.6 L (13.0-17.5) gm/dL Hct 23.3 L (39.0-53.0) % RDW 15.6 H (11.5-15.5) % ABG pO2 (83-108) mmHg ABG Total CO2 (19-24) mmol/L Potassium (3.5-5.1) mmol/L BUN (9-20) mg/dL Creatinine (0.66-1.25) mg/dL Glucose (74-99) mg/dL POC Glucose (mg/dL) 211 H (75-99) mg/dL ALT (21-72) U/L Troponin I 0.050 H* (0.000-0.034) ng/mL Urine RBC (0-5) /hpf Urine WBC (0-5) /hpf Urine Bacteria (None) /hpf Crossmatch 11/05/19 11/05/19 11/05/19 Range/Units 01:13 02:15 03:18 RBC (4.30-5.90) m/uL Hgb (13.0-17.5) gm/dL Hct (39.0-53.0) % RDW (11.5-15.5) % ABG pO2 (83-108) mmHg ABG Total CO2 (19-24) mmol/L Potassium (3.5-5.1) mmol/L BUN (9-20) mg/dL Creatinine (0.66-1.25) mg/dL Glucose (74-99) mg/dL POC Glucose (mg/dL) 177 H 145 H 122 H (75-99) mg/dL ALT (21-72) U/L Troponin I (0.000-0.034) ng/mL Urine RBC (0-5) /hpf Urine WBC (0-5) /hpf Urine Bacteria (None) /hpf Crossmatch 11/05/19 11/05/19 11/05/19 Range/Units 04:51 04:54 04:54 RBC 2.32 L (4.30-5.90) m/uL Hgb 7.1 L (13.0-17.5) gm/dL Hct 22.0 L (39.0-53.0) % RDW 15.9 H (11.5-15.5) % ABG pO2 (83-108) mmHg ABG Total CO2 (19-24) mmol/L Potassium 5.3 H (3.5-5.1) mmol/L BUN 71 H (9-20) mg/dL Creatinine 5.60 H (0.66-1.25) mg/dL Glucose 107 H (74-99) mg/dL POC Glucose (mg/dL) 116 H (75-99) mg/dL ALT (21-72) U/L Troponin I (0.000-0.034) ng/mL Urine RBC (0-5) /hpf Urine WBC (0-5) /hpf Urine Bacteria (None) /hpf Crossmatch 11/05/19 11/05/19 Range/Units 06:03 07:29 RBC (4.30-5.90) m/uL Hgb (13.0-17.5) gm/dL Hct (39.0-53.0) % RDW (11.5-15.5) % ABG pO2 (83-108) mmHg ABG Total CO2 (19-24) mmol/L Potassium (3.5-5.1) mmol/L BUN (9-20) mg/dL Creatinine (0.66-1.25) mg/dL Glucose (74-99) mg/dL POC Glucose (mg/dL) 129 H 135 H (75-99) mg/dL ALT (21-72) U/L Troponin I (0.000-0.034) ng/mL Urine RBC (0-5) /hpf Urine WBC (0-5) /hpf Urine Bacteria (None) /hpf Crossmatch Microbiology - Last 24 Hours (Table) 11/04/19 11:35 Body Fluid Culture - Preliminary Ascites Fluid 11/04/19 11:35 Anaerobic Culture - Preliminary Peritoneal Fluid 11/04/19 11:35 Fungal Culture - Preliminary Peritoneal Fluid 11/04/19 08:45 Urine Culture - Preliminary Urine,Voided Assessment and Plan Plan: 1. Acute blood loss anemia secondary to gross hematuria, status post transfusion of 2 units of packed RBCs. Consults with GI, appreciated. Xar elto on hold 2. Gross hematuria possibly related to cystitis or urinary tract infection. Consult with urology appreciated. Patient will need eventual cystoscopy. DDAVP ordered. Intermittent irrigation of Mota catheter. 3. Rectal bleed with no sign of bleeding-- ruled out. GI consult appreciated. Due to no signs of active GI bleed, Dr. Mabry has signed off. 4. End-stage renal disease on CAPD with retention of the PD fluid. Consult with Dr. Oropeza appreciated. Patient to resume CAPD. Fluid sent for studies. Lasix 80 mg by mouth twice daily. 5. Atherosclerotic heart disease. Patient follows with Dr. Spain. Consult with Dr. Herzog appreciated. Records from outside facility to be obtained. Unclear why patient is on Xarelto. Echocardiogram as above 6. Paroxysmal atrial fibrillation. Xarelto on hold. Patient is off Coumadin and started on Xarelto by Dr. Spain. Cardiology is following. 7. Diabetes mellitus type 2, insulin requiring. Continue insulin drip and transitioned to NovoLog scale along with NovoLog 7030, 24 units with breakfast to start tomorrow along with 12 units in the evening. 8. Hyperlipidemia: Continue patient on atorvastatin. 9. Hypothyroidism. Currently on levothyroxine 37.5 g IV daily. 10. BPH. Continue Flomax. Monitor for urinary retention. 11. Hypertension. Norvasc, Coreg, Bumex on hold. Patient is currently on IV hydralazine as needed and Lopressor 25 mg twice daily. 12. Metabolic encephalopathy related to the bleeding, anemia, end-stage renal disease and retention of PD fluid. 13. GI prophylaxis: Patient be on pantoprazole IV. 14. DVT prophylaxis: Patient is off anticoagulation for now will continue Venodyne boots and knee-high MIRTHA hose. 15. Hyperkalemia secondary to end-stage renal disease. Improvement expected with CAPD. 16. Mild troponin elevation secondary to chronic kidney disease. Consult with cardiology appreciated. 17. History of alcoholic cardiomyopathy and chronic diastolic heart failure. 18. History of alcohol abuse and advanced liver disease. 19. Paroxysmal atrial fibrillation. Xarelto on hold. CODE STATUS: Full code. Discharge plan: To be determined Impression and plan of care have been directed as dictated by the signing physician. Carmina Collins nurse practitioner acting as scribe for signing physician.
[2019-11-05] MEDS: DIALYSIS (PERIT 2.5%) 2,000 ML 50 G/2,000 ML BAG INTRAPERIT SCH (11:45)
[2019-11-05] MEDS ORDERED: DARBEPOETIN ALFA 40 MCG/0.4 ML SYRINGE SQ SCH (12:00)
--- NOTE | 2019-11-05 12:01 | P.PN ---
Subjective Progress Note Date: 11/05/19 Principal diagnosis: Acute blood loss anemia with hematuria and ascites. This is a 74-year-old white male with history of chronic end-stage renal disease, on peritoneal dialysis, history of hypertension, chronic anemia, hypothyroidism, dyslipidemia, history of diastolic congestive heart failure, insulin-dependent diabetes which was diagnosed over 20 years ago, patient had a recent peritoneal catheter placement for dialysis, and this was done supposedly at [facility]. Patient was brought into the ER mostly with a few days' history of increased shortness of breath, increased abdominal distention, he had no cough, no fever, no chills, no hemoptysis, no chest pain. He has been complaining of severe low back pain for the last few days. Workup in the ER included a CT of the chest chest x-ray, his CT of the chest showed small pleural effusions, small pericardial effusion, mild basilar patchy atelectasis, and cardiomegaly, there was also evidence of significant abdominal ascites. Patient was admitted initially to a monitor bed on selective, and his admitting di agnosis was basically anemia and possible GI bleeding. Although his Hemoccult stool was negative. Patient was later transferred to the ICU mostly because of concern about abdominal sepsis, increased abdominal girth, ascites, and increased shortness of breath requiring high flow nasal cannula at 10 L/m. I saw the patient in the ICU, and I have recommended broad-spectrum antibiotics coverage, surgical consultation, urologic consultation, renal ultrasound to evaluate his gross hematuria, and I also recommended a CT of the abdomen and pelvis. We'll also recommend ultrasound or CT-guided paracentesis by interventional radiology. Fluid from the arterial catheter will be removed and will be sent for different diagnostic studies including cultures cell count and differential. ABG on 28% FiO2 showed a pO2 of 72 be CO2 of 45 and pH of 7.35. WBC count 9.1 hemoglobin 7.7. Electrolytes and renal profile were noted, and his hyperkalemia is being addressed by nephrology was also consulted on the case. Troponin on admission was 0.047. Urinalysis showed mostly gross hematuria. Patient was reevaluated today on 11/05/2019, remains in the ICU, patient had a dramatically cut improvement yesterday after draining 6 L of fluids from his peritoneal cavity via his dialysis catheter. Patient felt much better almost immediately. And the Gram stain seems to be negative, does not seem to be infe cted peritoneal fluid so far. However the patient remains empirically on antibiotics. He is hemodynamically stable. Continues to have gross hematuria, and that being addressed by urology. No plans for any immediate intervention, recommending frequent flushing via Mota catheter. Renal ultrasound and CT of the abdomen and pelvis results were reviewed. No active surgical issues are being considered at this point. Hemoglobin today is 7.1WBC count is 8.1. electrolytes are relatively normal. His BUN is 71 creatinine is 5.60, being followed by nephrology, and restarted on his peritoneal dialysis. Chest x-ray this morning showed cardiomegaly and improved aeration of the left lung base. Objective - Vital Signs Vital signs: Vital Signs Temp 98.2 F 11/05/19 08:00 Pulse 73 11/05/19 10:00 Resp 16 11/05/19 10:00 BP 131/59 11/05/19 10:00 Pulse Ox 99 11/05/19 10:00 Intake & Output 11/04/19 11/05/19 11/05/19 18:59 06:59 18:59 Intake Total 0936.822 3263.385 400 Output Total 2004 1325 305 Balance -388.503 194.385 95 Weight 113.852 kg 118.7 kg Intake: IV 1290 1200 400 D10 250 Sodium Chloride 0.9% 1, 940 1200 400 000 ml @ 20 mls/hr IV . Q24H [facility] Rx#:[id number] zosyn 100 Intake, IV Titration 16.497 9.385 Amount Insulin Regular 100 unit 16.497 9.385 In Sodium Chloride 0.9% 100 ml @ Per Protocol IV .Q0M [facility] Rx#:[id number] Blood Product 310 310 Rc As-1 Unit 310 [id number] Rc Pheresis As-3 Unit 0 310 [id number] Output: Urine 2004 1325 305 Other: Voiding Method Indwelling Catheter Indwelling Catheter - Exam Physical Exam: Revealed a 74-year-old male, on few liters nasal cannula, in no distress. HEENT:[Neck is supple.] [No neck masses.] [No thyromegaly.] [No JVD.] Chest: [Symmetrical chest expansion, minimal crackles at the bases, no rhonchi and no wheezes.] Cardiac Exam: [Normal S1 and S2, no S3 gallop, 2/6 systolic murmur thought the precordium. Abdomen: [Obese, soft, nontender, still suspect some component of ascites. Peritoneal catheter is noted. Extremities: [No clubbing, 1+ bipedal edema, no cyanosis.] Neurological Exam: [Alert oriented 3, no gross focal neurologic deficits. Psychiatric: Normal mood, blunt affect, normal mental status examination. Skin: No rashes. Lymphatics: No lymphadenopathy. - Labs CBC & Chem 7: 11/05/19 04:54 11/05/19 04:54 Labs: Abnormal Lab Results - Last 24 Hours (Table) 11/04/19 11/04/19 11/04/19 Range/Units 03:43 11:43 12:38 RBC (4.30-5.90) m/uL Hgb (13.0-17.5) gm/dL Hct (39.0-53.0) % RDW (11.5-15.5) % Potassium (3.5-5.1) mmol/L BUN (9-20) mg/dL Creatinine (0.66-1.25) mg/dL Glucose (74-99) mg/dL POC Glucose (mg/dL) 145 H 103 H (75-99) mg/dL Troponin I (0.000-0.034) ng/mL Crossmatch See Detail 11/04/19 11/04/19 11/04/19 Range/Units 14:28 14:40 14:56 RBC 2.15 L (4.30-5.90) m/uL Hgb 6.6 L* (13.0-17.5) gm/dL Hct 20.1 L (39.0-53.0) % RDW 15.7 H (11.5-15.5) % Potassium (3.5-5.1) mmol/L BUN (9-20) mg/dL Creatinine (0.66-1.25) mg/dL Glucose (74-99) mg/dL POC Glucose (mg/dL) 74 L (75-99) mg/dL Troponin I 0.045 H* (0.000-0.034) ng/mL Crossmatch 11/04/19 11/04/19 11/04/19 Range/Units 15:24 15:48 17:23 RBC (4.30-5.90) m/uL Hgb (13.0-17.5) gm/dL Hct (39.0-53.0) % RDW (11.5-15.5) % Potassium (3.5-5.1) mmol/L BUN (9-20) mg/dL Creatinine (0.66-1.25) mg/dL Glucose (74-99) mg/dL POC Glucose (mg/dL) 69 L 203 H 125 H (75-99) mg/dL Troponin I (0.000-0.034) ng/mL Crossmatch 11/04/19 11/04/19 11/04/19 Range/Units 18:45 19:38 20:37 RBC (4.30-5.90) m/uL Hgb (13.0-17.5) gm/dL Hct (39.0-53.0) % RDW (11.5-15.5) % Potassium (3.5-5.1) mmol/L BUN (9-20) mg/dL Creatinine (0.66-1.25) mg/dL Glucose (74-99) mg/dL POC Glucose (mg/dL) 102 H 142 H 165 H (75-99) mg/dL Troponin I (0.000-0.034) ng/mL Crossmatch 11/04/19 11/04/19 11/04/19 Range/Units 21:20 21:20 21:20 RBC 2.46 L (4.30-5.90) m/uL Hgb 7.6 L (13.0-17.5) gm/dL Hct 23.3 L (39.0-53.0) % RDW 15.6 H (11.5-15.5) % Potassium 5.2 H (3.5-5.1) mmol/L BUN 74 H (9-20) mg/dL Creatinine 5.86 H (0.66-1.25) mg/dL Glucose 179 H (74-99) mg/dL POC Glucose (mg/dL) (75-99) mg/dL Troponin I 0.050 H* (0.000-0.034) ng/mL Crossmatch 11/04/19 11/05/19 11/05/19 Range/Units 23:50 01:13 02:15 RBC (4.30-5.90) m/uL Hgb (13.0-17.5) gm/dL Hct (39.0-53.0) % RDW (11.5-15.5) % Potassium (3.5-5.1) mmol/L BUN (9-20) mg/dL Creatinine (0.66-1.25) mg/dL Glucose (74-99) mg/dL POC Glucose (mg/dL) 211 H 177 H 145 H (75-99) mg/dL Troponin I (0.000-0.034) ng/mL Crossmatch 11/05/19 11/05/19 11/05/19 Range/Units 03:18 04:51 04:54 RBC 2.32 L (4.30-5.90) m/uL Hgb 7.1 L (13.0-17.5) gm/dL Hct 22.0 L (39.0-53.0) % RDW 15.9 H (11.5-15.5) % Potassium (3.5-5.1) mmol/L BUN (9-20) mg/dL Creatinine (0.66-1.25) mg/dL Glucose (74-99) mg/dL POC Glucose (mg/dL) 122 H 116 H (75-99) mg/dL Troponin I (0.000-0.034) ng/mL Crossmatch 11/05/19 11/05/19 11/05/19 Range/Units 04:54 06:03 07:29 RBC (4.30-5.90) m/uL Hgb (13.0-17.5) gm/dL Hct (39.0-53.0) % RDW (11.5-15.5) % Potassium 5.3 H (3.5-5.1) mmol/L BUN 71 H (9-20) mg/dL Creatinine 5.60 H (0.66-1.25) mg/dL Glucose 107 H (74-99) mg/dL POC Glucose (mg/dL) 129 H 135 H (75-99) mg/dL Troponin I (0.000-0.034) ng/mL Crossmatch 11/05/19 Range/Units 09:12 RBC (4.30-5.90) m/uL Hgb (13.0-17.5) gm/dL Hct (39.0-53.0) % RDW (11.5-15.5) % Potassium (3.5-5.1) mmol/L BUN (9-20) mg/dL Creatinine (0.66-1.25) mg/dL Glucose (74-99) mg/dL POC Glucose (mg/dL) 141 H (75-99) mg/dL Troponin I (0.000-0.034) ng/mL Crossmatch Microbiology - Last 24 Hours (Table) 11/04/19 08:45 Urine Culture - Final Urine,Voided 11/04/19 11:35 Gram Stain - Preliminary Ascites Fluid Body Fluid Culture - Preliminary 11/04/19 11:35 Anaerobic Culture - Preliminary Peritoneal Fluid 11/04/19 11:35 Fungal Culture - Preliminary Peritoneal Fluid Assessment and Plan Assessment: Impression: 1 abdominal distention and ascites, significantly improved after draining 6 L of fluid via peritoneal catheter. Did not require paracentesis by interventional radiology. Diagnostic studies on the fluid are pending but so far they do not seem to be pointing to infection. 2 chronic renal failure,/end-stage renal disease. Patient is on peritoneal dialysis. 3 acute on chronic anemia most likely secondary to gross hematuria, negative Hemoccult stools. Doubt GI bleeding. Patient is being followed by urology. No plans for cystoscopy at this point. 4 gross hematuria, possible cystitis, 5 history of hypothyroidism 6 history of hypertension 7 history of insulin-dependent diabetes. 8 history of anasarca and advanced liver disease, possible liver cirrhosis. 9 history of nephrotic syndrome 10 history of diastolic congestive heart failure 11 history of dyslipidemia 12 history of benign prostatic hypertrophy 13 chronic pain syndrome. Recommendation: Continue to monitor in the ICU. Continue peritoneal dialysis Broad-spectrum antibiotics for presumptive abdominal sepsis and this will be guided by cultures including blood cultures, and cultures of the peritoneal fluid. GI and DVT prophylaxis. Prognosis is definitely poor and guarded, we'll continue to follow. We will likely transfer out of the ICU within the next 24 hours. And follow on a regular medical floor. Time with Patient: Less than 30
[2019-11-05 12:05] LABS: Glucose,Whole Blood 151 mg/dL (75-99)
[2019-11-05] MEDS: INSULIN ASPART (NovoLOG) 100 UNIT/ML VIAL SQ SCH ×3 (12:12→20:32)
[2019-11-05 12:28] LABS: Anisocytosis Slight; Hypochromasia Slight; MCH 30.5 pg (25.0-35.0); MCHC 31.8 g/dL (31.0-37.0); Platelet Count 214 k/uL (150-450); RBC 2.29 m/uL (4.30-5.90); RDW 16.1 % (11.5-15.5); WBC 9.3 k/uL (3.8-10.6)
--- NOTE | 2019-11-05 12:47 | PN ---
PROGRESS NOTE This patient is admitted with abdominal pain and hematuria. The patient has been on anticoagulation, exact reason of which is unknown, but it appears that the patient was taking Xarelto and came with hematuria. The patient feels better after peritoneal dialysis. Patient remains hemodynamically stable. Denies any chest pain or shortness of breath. The patient has had minimal elevated troponin without significant rise and fall and it is not suggestive of acute coronary syndrome. Blood pressure is 119/52 mmHg. First and second heart sounds are normal. Lungs are clinically clear to auscultation and percussion. RECOMMENDATIONS: We will recommend to resume probably the Eliquis after patient's hematuria is subsided. The patient is advised to follow up with his Cardiology at [facility]. MMODL / IJN: [id number] /
[2019-11-05 17:03] LABS: Glucose,Whole Blood 253 mg/dL (75-99)
[2019-11-05] MEDS ORDERED: INSULN ASP PRT/INSULIN ASPART 100 UNIT/ML 10 ML VIAL SQ SCH (17:30)
--- NOTE | 2019-11-05 17:51 | P.PN ---
Progress Note - Text Progress Note Date: 11/05/19 The patient is afebrile. He continues to have gross hematuria but says that irrigation is not necessary as often as yesterday as there are no clots present. His hemoglobin is 7.0 following 2 units of packed cells. Urine culture and blood cultures have shown no growth. CT scan of the abdomen and pelvis performed yesterday showed no gross renal abnormality. The bladder was thick walled but no other specific finding to explain the hematuria was noted. The etiology of the gross hematuria remains unclear however it could be secondary to hemorrhagic cystitis complicated by the use of an anticoagulant. At this point I do not feel that cystoscopy needs to be performed on an emergency basis.
[2019-11-05 20:38] LABS: Glucose,Whole Blood 238 mg/dL (75-99)
--- NOTE | 2019-11-05 22:40 | P.PN ---
Subjective Progress Note Date: 11/05/19 CHIEF COMPLAINT: Abdominal pain HISTORY OF PRESENT ILLNESS: The patient is a 74-year-old male who presented with abdominal pain including gross hematuria following calhoun catheter placement. He was on Xarelto. He had peritoneal dialysis with withdrawal over 6 liters. He no longer has any abdominal pain. ROS: No reports of nausea and vomiting. No fevers or chills. No new chest pain. PHYSICAL EXAM: VITAL SIGNS: Reviewed CONSTITUTIONAL: Well developed and in no acute distress. EYES: Conjuctivae without sclera icterus. Extraocular movements grossly intact. HEAD, EARS, NOSE, THROAT: Moist buccal mucosa. Head is atraumatic, normocephalic. Hears conversational speech. No nasal drainage. RESPIRATORY: Non-labored respirations and equal bilateral excursions. CARDIOVASCULAR: Palpable 2+ radial pulses. ABDOMEN: No peritonitis. MUSCULOSKELETAL: No gross deformity of the lower extremities noted. No clubbing. No cyanosis. SKIN: Good skin turgor. Well perfused. NEUROLOGIC: Cranial nerves I through XII grossly intact. No focal or lateralizing signs. PSYCH: Appropriate affect. Alert and oriented to person, place and time. CLINICAL LABS: White blood cell count normal ASSESSMENT: 1. Peritoneal dialysis 2. Abdominal pain resolved 3. Hematuria PLAN: 1. Clinically he is stable 2. Dialysis per nephrology Objective - Vital Signs Vital signs: Vital Signs Temp 98 F 11/05/19 20:00 Pulse 78 11/05/19 22:00 Resp 17 11/05/19 22:00 BP 149/61 11/05/19 22:00 Pulse Ox 96 11/05/19 22:00 Intake & Output 11/05/19 11/05/19 11/06/19 06:59 18:59 06:59 Intake Total 0892.151 0223 400 Output Total 1325 1640 790 Balance 194.385 -440 -390 Weight 118.7 kg Intake: IV 1200 1200 400 Sodium Chloride 0.9% 1, 1200 1200 400 000 ml @ 20 mls/hr IV . Q24H [facility] Rx#:[id number] Intake, IV Titration 9.385 Amount Insulin Regular 100 unit 9.385 In Sodium Chloride 0.9% 100 ml @ Per Protocol IV .Q0M [facility] Rx#:[id number] Blood Product 310 Rc Pheresis As-3 Unit 310 [id number] Output: Urine 1325 1640 790 Other: Voiding Method Indwelling Catheter Indwelling Catheter Indwelling Catheter - Labs CBC & Chem 7: 11/05/19 12:11 11/05/19 04:54 Labs: Abnormal Lab Results - Last 24 Hours (Table) 11/04/19 11/05/19 11/05/19 Range/Units 23:50 01:13 02:15 RBC (4.30-5.90) m/uL Hgb (13.0-17.5) gm/dL Hct (39.0-53.0) % RDW (11.5-15.5) % Potassium (3.5-5.1) mmol/L BUN (9-20) mg/dL Creatinine (0.66-1.25) mg/dL Glucose (74-99) mg/dL POC Glucose (mg/dL) 211 H 177 H 145 H (75-99) mg/dL 11/05/19 11/05/19 11/05/19 Range/Units 03:18 04:51 04:54 RBC 2.32 L (4.30-5.90) m/uL Hgb 7.1 L (13.0-17.5) gm/dL Hct 22.0 L (39.0-53.0) % RDW 15.9 H (11.5-15.5) % Potassium (3.5-5.1) mmol/L BUN (9-20) mg/dL Creatinine (0.66-1.25) mg/dL Glucose (74-99) mg/dL POC Glucose (mg/dL) 122 H 116 H (75-99) mg/dL 11/05/19 11/05/19 11/05/19 Range/Units 04:54 06:03 07:29 RBC (4.30-5.90) m/uL Hgb (13.0-17.5) gm/dL Hct (39.0-53.0) % RDW (11.5-15.5) % Potassium 5.3 H (3.5-5.1) mmol/L BUN 71 H (9-20) mg/dL Creatinine 5.60 H (0.66-1.25) mg/dL Glucose 107 H (74-99) mg/dL POC Glucose (mg/dL) 129 H 135 H (75-99) mg/dL 11/05/19 11/05/19 11/05/19 Range/Units 09:12 11:53 12:11 RBC 2.29 L (4.30-5.90) m/uL Hgb 7.0 L (13.0-17.5) gm/dL Hct 22.0 L (39.0-53.0) % RDW 16.1 H (11.5-15.5) % Potassium (3.5-5.1) mmol/L BUN (9-20) mg/dL Creatinine (0.66-1.25) mg/dL Glucose (74-99) mg/dL POC Glucose (mg/dL) 141 H 151 H (75-99) mg/dL 11/05/19 11/05/19 Range/Units 16:53 20:27 RBC (4.30-5.90) m/uL Hgb (13.0-17.5) gm/dL Hct (39.0-53.0) % RDW (11.5-15.5) % Potassium (3.5-5.1) mmol/L BUN (9-20) mg/dL Creatinine (0.66-1.25) mg/dL Glucose (74-99) mg/dL POC Glucose (mg/dL) 253 H 238 H (75-99) mg/dL Microbiology - Last 24 Hours (Table) 11/04/19 09:32 Blood Culture - Preliminary Blood No Growth after 24 hours 11/04/19 09:21 Blood Culture - Preliminary Blood No Growth after 24 hours 11/04/19 08:45 Urine Culture - Final Urine,Voided 11/04/19 11:35 Gram Stain - Preliminary Ascites Fluid Body Fluid Culture - Preliminary 11/04/19 11:35 Anaerobic Culture - Preliminary Peritoneal Fluid 11/04/19 11:35 Fungal Culture - Preliminary Peritoneal Fluid Assessment and Plan (1) Abdominal pain, generalized Current Visit: Yes Status: Acute Code(s): R10.84 - GENERALIZED ABDOMINAL PAIN SNOMED Code(s): 410094160 (2) Peritoneal dialysis catheter mechanical complication Current Visit: Yes Status: Acute Code(s): T85.691A - [facility] COMPL OF INTRAPERITONEAL DIALYSIS CATHETER, INIT ENCNTR SNOMED Code(s): 527147720 (3) Gross hematuria Current Visit: Yes Status: Acute Code(s): R31.0 - GROSS HEMATURIA SNOMED Code(s): 523778021
[2019-11-06] MEDS: DIALYSIS (PERIT 2.5%) 2,000 ML 50 G/2,000 ML BAG INTRAPERIT SCH ×2 (00:04→12:05)
[2019-11-06] MEDS: PIPERACILLIN-TAZOBACTAM 3.375 GM in SODIUM CHLORIDE 0.9% 100 ML IVPB SCH ×2 (00:11→11:44)
[2019-11-06 00:26] LABS: Glucose,Whole Blood 230 mg/dL (75-99)
[2019-11-06] MEDS ORDERED: INSULIN ASPART (NovoLOG) 100 UNIT/ML VIAL SQ ONE (01:26)
[2019-11-06 01:48] LABS: Glucose,Whole Blood 197 mg/dL (75-99)
[2019-11-06 05:10] LABS: Anisocytosis Slight; Basophils # (A) 0.1 k/uL (0-0.2); Basophils % (A) 1 %; Eosinophils # (A) 0.8 k/uL (0-0.7); Eosinophils % (A) 10 %; HCT 20.2 % (39.0-53.0); Lymphocytes % (A) 13 %; MCH 30.2 pg (25.0-35.0); MCHC 31.7 g/dL (31.0-37.0); MCV 95.2 fL (80.0-100.0); Mean Platelet Volume 8.6; Monocytes # (A) 0.6 k/uL (0-1.0); Monocytes % (A) 7 %; Neutrophils # (A) 5.2 k/uL (1.3-7.7); Neutrophils % (A) 67 %; Platelet Count 226 k/uL (150-450); RBC 2.12 m/uL (4.30-5.90); RDW 16.2 % (11.5-15.5); WBC 7.8 k/uL (3.8-10.6)
[2019-11-06 05:12] LABS: HGB 6.4 gm/dL (13.0-17.5)
[2019-11-06 05:16] LABS: Calcium 8.5 mg/dL (8.4-10.2); Phosphorus 4.3 mg/dL (2.5-4.5); Potassium 4.7 mmol/L (3.5-5.1)
[2019-11-06] MEDS: SODIUM CHLORIDE 0.9% 1,000 ML IV SCH ×4 (06:15→21:12)
[2019-11-06] MEDS: DIALYSIS (PERIT 1.5%) 2,000 ML 30 G/2,000 ML BAG INTRAPERIT SCH ×2 (06:16→18:05)
[2019-11-06] MEDS: INSULIN ASPART (NovoLOG) 100 UNIT/ML VIAL SQ SCH ×4 (06:26→21:10)
[2019-11-06 07:12] LABS: Glucose,Whole Blood 122 mg/dL (75-99)
[2019-11-06] MEDS ORDERED: INSULN ASP PRT/INSULIN ASPART 100 UNIT/ML 10 ML VIAL SQ SCH ×3 (07:30→17:30)
--- NOTE | 2019-11-06 08:36 | P.PN ---
Subjective Progress Note Date: 11/06/19 Seen and examined for the follow-up of ESRD. 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 3 week history of intermittent gross hematuria got worse. Denies any dysuria or flank pain. No nausea vomiting diarrhea. No bloody effluent. Objective - Vital Signs Vital signs: Vital Signs Temp 98 F 11/06/19 06:51 Pulse 71 11/06/19 07:00 Resp 15 11/06/19 07:00 BP 130/61 11/06/19 07:00 Pulse Ox 93 L 11/06/19 07:00 Intake & Output 11/05/19 11/06/19 11/06/19 18:59 06:59 18:59 Intake Total 1200 1200 100 Output Total 1639 2024 45 Balance -440 -825 55 Weight 117.9 kg Intake: IV 1200 1200 100 Sodium Chloride 0.9% 1, 1200 1200 100 000 ml @ 20 mls/hr IV . Q24H [facility] Rx#:[id number] Blood Product 0 Rc Cpda-1 Unit 0 [id number] Output: Urine 1639 2024 45 Other: Voiding Method Indwelling Catheter Indwelling Catheter - Exam No acute distress S1-S2 heard Lungs clear PD catheter Trace edema Mota catheter with bloody red urine. - Labs CBC & Chem 7: 11/06/19 04:41 11/06/19 04:41 Labs: Abnormal Lab Results - Last 24 Hours (Table) 11/04/19 11/05/19 11/05/19 Range/Units 03:43 09:12 11:53 RBC (4.30-5.90) m/uL Hgb (13.0-17.5) gm/dL Hct (39.0-53.0) % RDW (11.5-15.5) % Eosinophils # (0-0.7) k/uL Chloride (98-107) mmol/L BUN (9-20) mg/dL Creatinine (0.66-1.25) mg/dL Glucose (74-99) mg/dL POC Glucose (mg/dL) 141 H 151 H (75-99) mg/dL Crossmatch See Detail 11/05/19 11/05/19 11/05/19 Range/Units 12:11 16:53 20:27 RBC 2.29 L (4.30-5.90) m/uL Hgb 7.0 L (13.0-17.5) gm/dL Hct 22.0 L (39.0-53.0) % RDW 16.1 H (11.5-15.5) % Eosinophils # (0-0.7) k/uL Chloride (98-107) mmol/L BUN (9-20) mg/dL Creatinine (0.66-1.25) mg/dL Glucose (74-99) mg/dL POC Glucose (mg/dL) 253 H 238 H (75-99) mg/dL Crossmatch 11/06/19 11/06/19 11/06/19 Range/Units 00:14 01:36 04:41 RBC 2.12 L (4.30-5.90) m/uL Hgb 6.4 L* (13.0-17.5) gm/dL Hct 20.2 L (39.0-53.0) % RDW 16.2 H (11.5-15.5) % Eosinophils # 0.8 H (0-0.7) k/uL Chloride (98-107) mmol/L BUN (9-20) mg/dL Creatinine (0.66-1.25) mg/dL Glucose (74-99) mg/dL POC Glucose (mg/dL) 230 H 197 H (75-99) mg/dL Crossmatch 11/06/19 11/06/19 Range/Units 04:41 07:01 RBC (4.30-5.90) m/uL Hgb (13.0-17.5) gm/dL Hct (39.0-53.0) % RDW (11.5-15.5) % Eosinophils # (0-0.7) k/uL Chloride 108 H (98-107) mmol/L BUN 59 H (9-20) mg/dL Creatinine 4.86 H (0.66-1.25) mg/dL Glucose 124 H (74-99) mg/dL POC Glucose (mg/dL) 122 H (75-99) mg/dL Crossmatch Microbiology - Last 24 Hours (Table) 11/04/19 09:32 Blood Culture - Preliminary Blood No Growth after 24 hours 11/04/19 09:21 Blood Culture - Preliminary Blood No Growth after 24 hours 11/04/19 08:45 Urine Culture - Final Urine,Voided 11/04/19 11:35 Gram Stain - Preliminary Ascites Fluid Body Fluid Culture - Preliminary Assessment and Plan Assessment: #1 gross hematuria suspect lower genitourinary pathology. #2 ESRD on CAPD #3 hypertension with ESRD #4 metabolic bone disease with ESRD #5 anemia multifactorial with gross hematuria #6 mild hyperkalemia. Plan: #1 continue CAPD 1.5% and 2.5% alternating 2 L. #2 status post DDAVP for hematuria. Appreciate urology input. #3 started PATRICIA and iron studies pending. #4 ESRD medications #5 continue Lasix. #6 transfuse to maintain hemoglobin more than 8.
[2019-11-06] MEDS: TAMSULOSIN 0.4 MG CAP.ER.24H PO SCH (09:07)
[2019-11-06] MEDS: LEVOTHYROXINE IVP 100 MCG/5 ML VIAL IV SCH (09:07)
[2019-11-06] MEDS: ATORVASTATIN 40 MG TAB PO SCH (09:08)
[2019-11-06] MEDS: FUROSEMIDE 80 MG TAB PO SCH ×2 (09:08→15:37)
[2019-11-06] MEDS: METOPROLOL TARTRATE 25 MG TAB PO SCH ×2 (09:08→21:10)
[2019-11-06] MEDS: PANTOPRAZOLE 40 MG/10 ML VIAL IV SCH (09:08)
[2019-11-06] MEDS: FOLIC ACID-VIT B COMPLEX-VIT C 1 CAP PO SCH (09:08)
[2019-11-06 10:10] LABS: Glucose,Whole Blood 179 mg/dL (75-99)
[2019-11-06] MEDS: hydrALAZINE HCL 25 MG TAB PO SCH ×3 (10:21→21:12)
[2019-11-06 11:05] LABS: HCT 23.5 % (39.0-53.0); HGB 7.4 gm/dL (13.0-17.5); Hypochromasia Slight; MCH 30.8 pg (25.0-35.0); MCHC 31.6 g/dL (31.0-37.0); MCV 97.7 fL (80.0-100.0); Macrocytosis Slight; Platelet Count 220 k/uL (150-450); RBC 2.41 m/uL (4.30-5.90); RDW 15.6 % (11.5-15.5); WBC 8.5 k/uL (3.8-10.6)
--- NOTE | 2019-11-06 11:29 | P.PN ---
Subjective Progress Note Date: 11/06/19 Principal diagnosis: Acute blood loss anemia with hematuria and ascites. This is a 74-year-old white male with history of chronic end-stage renal disease, on peritoneal dialysis, history of hypertension, chronic anemia, hypothyroidism, dyslipidemia, history of diastolic congestive heart failure, insulin-dependent diabetes which was diagnosed over 20 years ago, patient had a recent peritoneal catheter placement for dialysis, and this was done supposedly at [facility]. Patient was brought into the ER mostly with a few days' history of increased shortness of breath, increased abdominal distention, he had no cough, no fever, no chills, no hemoptysis, no chest pain. He has been complaining of severe low back pain for the last few days. Workup in the ER included a CT of the chest chest x-ray, his CT of the chest showed small pleural effusions, small pericardial effusion, mild basilar patchy atelectasis, and cardiomegaly, there was also evidence of significant abdominal ascites. Patient was admitted initially to a monitor bed on selective, and his admitting di agnosis was basically anemia and possible GI bleeding. Although his Hemoccult stool was negative. Patient was later transferred to the ICU mostly because of concern about abdominal sepsis, increased abdominal girth, ascites, and increased shortness of breath requiring high flow nasal cannula at 10 L/m. I saw the patient in the ICU, and I have recommended broad-spectrum antibiotics coverage, surgical consultation, urologic consultation, renal ultrasound to evaluate his gross hematuria, and I also recommended a CT of the abdomen and pelvis. We'll also recommend ultrasound or CT-guided paracentesis by interventional radiology. Fluid from the arterial catheter will be removed and will be sent for different diagnostic studies including cultures cell count and differential. ABG on 28% FiO2 showed a pO2 of 72 be CO2 of 45 and pH of 7.35. WBC count 9.1 hemoglobin 7.7. Electrolytes and renal profile were noted, and his hyperkalemia is being addressed by nephrology was also consulted on the case. Troponin on admission was 0.047. Urinalysis showed mostly gross hematuria. Patient was reevaluated today on 11/05/2019, remains in the ICU, patient had a dramatically cut improvement yesterday after draining 6 L of fluids from his peritoneal cavity via his dialysis catheter. Patient felt much better almost immediately. And the Gram stain seems to be negative, does not seem to be infe cted peritoneal fluid so far. However the patient remains empirically on antibiotics. He is hemodynamically stable. Continues to have gross hematuria, and that being addressed by urology. No plans for any immediate intervention, recommending frequent flushing via Mota catheter. Renal ultrasound and CT of the abdomen and pelvis results were reviewed. No active surgical issues are being considered at this point. Hemoglobin today is 7.1WBC count is 8.1. electrolytes are relatively normal. His BUN is 71 creatinine is 5.60, being followed by nephrology, and restarted on his peritoneal dialysis. Chest x-ray this morning showed cardiomegaly and improved aeration of the left lung base. Reevaluated today on 11/06/2019. Patient remains in the ICU, doing fairly well, on room air, in no distress. Patient received a unit of packed RBCs today for low hemoglobin of 6.4, follow-up hemoglobin was 7.4. Patient denies any complaints, denies any shortness of breath no cough no wheezing no chest pain no nausea no vomiting no abdominal pain. He is being followed by nephrology for his end-stage renal disease, remains on peritoneal dialysis Objective - Vital Signs Vital signs: Vital Signs Temp 97.7 F 11/06/19 08:50 Pulse 70 11/06/19 10:00 Resp 16 11/06/19 10:00 BP 185/85 11/06/19 10:00 Pulse Ox 97 11/06/19 10:00 Intake & Output 11/05/19 11/06/19 11/06/19 18:59 06:59 18:59 Intake Total 1200 1200 510 Output Total 1639 Balance -440 -825 425 Weight 117.9 kg Intake: IV 1200 1200 200 Sodium Chloride 0.9% 1, 1200 1200 200 000 ml @ 20 mls/hr IV . Q24H [facility] Rx#:[id number] Blood Product 0 310 Rc Cpda-1 Unit 0 310 [id number] Output: Urine 1639 Other: Voiding Method Indwelling Catheter Indwelling Catheter Indwelling Catheter - Exam Physical Exam: Revealed a 74-year-old male, presently on room air. In no form of distress HEENT:[Neck is supple.] [No neck masses.] [No thyromegaly.] [No JVD.] Chest: [Symmetrical chest expansion, minimal crackles at the bases, no rhonchi and no wheezes.] Cardiac Exam: [Normal S1 and S2, no S3 gallop, 2/6 systolic murmur thought the precordium. Abdomen: [Obese, soft, nontender, still suspect some component of ascites. Peritoneal catheter is noted. Extremities: [No clubbing, 1+ bipedal edema, no cyanosis.] Neurological Exam: [Alert oriented 3, no gross focal neurologic deficits. Psychiatric: Normal mood, blunt affect, normal mental status examination. Skin: No rashes. Lymphatics: No lymphadenopathy. - Labs CBC & Chem 7: 11/06/19 10:41 11/06/19 04:41 Labs: Abnormal Lab Results - Last 24 Hours (Table) 11/04/19 11/05/19 11/05/19 Range/Units 03:43 11:53 12:11 RBC 2.29 L (4.30-5.90) m/uL Hgb 7.0 L (13.0-17.5) gm/dL Hct 22.0 L (39.0-53.0) % RDW 16.1 H (11.5-15.5) % Eosinophils # (0-0.7) k/uL Chloride (98-107) mmol/L BUN (9-20) mg/dL Creatinine (0.66-1.25) mg/dL Glucose (74-99) mg/dL POC Glucose (mg/dL) 151 H (75-99) mg/dL Crossmatch See Detail 11/05/19 11/05/19 11/06/19 Range/Units 16:53 20:27 00:14 RBC (4.30-5.90) m/uL Hgb (13.0-17.5) gm/dL Hct (39.0-53.0) % RDW (11.5-15.5) % Eosinophils # (0-0.7) k/uL Chloride (98-107) mmol/L BUN (9-20) mg/dL Creatinine (0.66-1.25) mg/dL Glucose (74-99) mg/dL POC Glucose (mg/dL) 253 H 238 H 230 H (75-99) mg/dL Crossmatch 11/06/19 11/06/19 11/06/19 Range/Units 01:36 04:41 04:41 RBC 2.12 L (4.30-5.90) m/uL Hgb 6.4 L* (13.0-17.5) gm/dL Hct 20.2 L (39.0-53.0) % RDW 16.2 H (11.5-15.5) % Eosinophils # 0.8 H (0-0.7) k/uL Chloride 108 H (98-107) mmol/L BUN 59 H (9-20) mg/dL Creatinine 4.86 H (0.66-1.25) mg/dL Glucose 124 H (74-99) mg/dL POC Glucose (mg/dL) 197 H (75-99) mg/dL Crossmatch 11/06/19 11/06/19 11/06/19 Range/Units 07:01 09:58 10:41 RBC 2.41 L (4.30-5.90) m/uL Hgb 7.4 L (13.0-17.5) gm/dL Hct 23.5 L (39.0-53.0) % RDW 15.6 H (11.5-15.5) % Eosinophils # (0-0.7) k/uL Chloride (98-107) mmol/L BUN (9-20) mg/dL Creatinine (0.66-1.25) mg/dL Glucose (74-99) mg/dL POC Glucose (mg/dL) 122 H 179 H (75-99) mg/dL Crossmatch Microbiology - Last 24 Hours (Table) 11/04/19 09:32 Blood Culture - Preliminary Blood No Growth after 24 hours 11/04/19 09:21 Blood Culture - Preliminary Blood No Growth after 24 hours 11/04/19 08:45 Urine Culture - Final Urine,Voided 11/04/19 11:35 Gram Stain - Preliminary Ascites Fluid Body Fluid Culture - Preliminary Assessment and Plan Assessment: Impression: 1 abdominal distention and ascites, significantly improved after draining 6 L of fluid via peritoneal catheter. Cultures so far are negative. 2 chronic renal failure,/end-stage renal disease. Patient is on peritoneal dialysis. 3 acute on chronic anemia most likely secondary to gross hematuria, negative Hemoccult stools. Doubt GI bleeding. Patient is being followed by urology. No plans for cystoscopy at this point. 4 gross hematuria, possible cystitis, 5 history of hypothyroidism 6 history of hypertension 7 history of insulin-dependent diabetes. 8 history of anasarca and advanced liver disease, possible liver cirrhosis. 9 history of nephrotic syndrome 10 history of diastolic congestive heart failure 11 history of dyslipidemia 12 history of benign prostatic hypertrophy 13 chronic pain syndrome. Recommendation: Transfer patient to a regular medical floor. Continue to monitor daily CBC. And daily electrolytes. Continue peritoneal dialysis Broad-spectrum antibiotics empirically, however considering stopping them if cultures remain negative. GI and DVT prophylaxis. Transfer out of the ICU to a regular medical floor once a bed becomes available. We'll continue to follow. Time with Patient: Less than 30
[2019-11-06 11:48] LABS: Glucose,Whole Blood 101 mg/dL (75-99)
--- NOTE | 2019-11-06 12:35 | P.PN ---
Subjective Progress Note Date: 11/06/19 74-year-old male one of Dr. Vidales patient with end-stage renal disease on [place] dialysis done it through nephrology group at [place] related to [facility]. Patient is on of Dr. Vidales patient was known to have history of atherosclerotic heart disease, hypertension, hyperlipidemia, diastolic congestive heart failure, insulin-dependent diabetes and advance kidney disease who apparently had 3 hernia repair in July 2019 and had CAPD catheter placement at [facility] same time and had started on peritoneal dialysis over the last few weeks. Patient presented to demurs department today at [facility] complaining of worsening lower back pain along with abdominal pain and distention and gross hematuria with questionable of bright red blood per rectum. He was anemic with hemoglobin of 7.1 hemodynamically not stable at the time hypotensive and hypoxic was started on blood transfusion and admit patient initially to the floor but was overflow in the ICU patient become more instable had more hemorrhage and more bleeding specially hematuria mild hypoxia worsening shortness of breath with distended abdomen looks like he had over 4-5 L of CAPD fluid was never drained consult intensive care along with nephrology and urology his troponin was elevated we'll consult cardiology as well and for whatever we have reason patient has been on anticoagulation with severe coagulopathy until 2 weeks ago apparently was moving into one of the oral hypoglycemic agent most likely Eliquis, patient doesn't remember the dose which made the bleeding much worse he doesn't remember why he is on medication the first place but he does seen a orthotist prosthetist at [facility] which he believes was on it for nonsustained A. fib. GI bleed kind of was excluded with negative Hemoccult and no blood coming out of the rectum. 11/05: The patient is seen and followed by multiple consultants. Dr. Herzog is following and obtaining workup done at [facility]. Patient's primary orthotist prosthetist is Dr. Spain. He is added and Lopressor 25 mg twice daily and stopped fenofibrate with plan to continue statin only. Echocardiogram reveals EF of 60-65% with moderate concentric left ventricular hypertrophy, mild aortic valve sclerosis, trace mitral regurgitation, mild tricuspid regurgitation, mild pulmonary hypertension. Patient is followed by Dr. Spaulding for intensive care management. Patient is on broad-spectrum antibiotics for coverage of abdominal sepsis and cystitis. Patient is followed by general surgery Dr. Day. No plan for any surgical intervention. Dr. León has evaluated for gross hematuria. Patient's bladder to be irrigated periodically. He may need a larger diameter catheter if there is any significant clots present within the bladder. Cystoscopy will eventually need to be set up for further evaluation. Dr. Oropeza is following for end-stage renal disease on CAPD. Fluid was sent for evaluation. CAT scan of the abdomen to be ordered before resuming peritoneal dialysis. Patient was evaluated by Dr. Denton for severe anemia secondary to hematuria. Xarelto is on hold. CAT scan of the abdomen and pelvis with contrast completed yesterday reveals small amount of ascites not significant for patient on peritoneal dialysis. Well formed small to moderate size anterior left pelvic fluid collection. Suspect pseudocyst related. 2 nail dialysis. Other etiologies cannot be excluded. Abnormal bladder wall thickening may reflect product of underlying neurogenic bladder. Repeat chest x-ray reveals cardiomegaly. Improved aeration left lung base. Repeat lab work this morning reveals a hemoglobin of 7.1, potassium 5.3, BUN 71 creatinine 5.60. Blood sugars running between 107 and 145. Patient is status post 2 units of packed R BCs. Paracentesis has been canceled as fluid was able to be drawn off peritoneal dialysis catheter. Patient was resumed on CAPD yesterday. Mota catheter draining bloody urine, no clots noted. Xarelto has been on hold. This is in place because of atrial fibrillation. Patient started on Lasix 80 mg twice daily and DDAVP has been ordered. Patient has been taken off insulin drip and we will start lower dose of 7030 insulin along with NovoLog scale. 11/06: Patient remains in intensive care unit waiting a bed. He has been downgraded to [facility] without telemetry. Patient is not eating very much as he does not like the food here. He most likely does not like the Diovan. Blood sugars are running between 122 and 253. He will be continued on the same dosing of the NovoLog mix 7030. He did receive 1 additional dose at 1 AM of NovoLog. The patient has been continued on CAPD. Blood pressure has been elevated and patient will be started on oral hydralazine. Review of Systems CONSTITUTIONAL: Looks much older than his age in no respiratory distress. Denie s fever, denies chills. EYES: No icterus sclerae, no conjunctivitis. EARS, NOSE, MOUTH, THROAT, and FACE: No sore throat, lymphadenopathy, carotid bruits or deformity. RESPIRATORY: Mild shortness of breath. CARDIOVASCULAR: Positive PND orthopnea palpitation or angina. GASTROINTESTINAL: Positive abdominal pain with distention nausea no vomiting. no rectal bleed, no distention or masses. GENITOURINARY: Positive hematuria more gross with significant clot. INTEGUMENT/BREAST: Negative for any muscular injury with mild osteoarthritis.. HEMATOLOGIC/LYMPHATIC: Negative for bleed or purpura. MUSCULOSKELTAL: Negative for Myalgia or arthralgia. NEURLOGICAL: No LOC, Sz or syncope, blurred vision dizziness or abnormality.. BEHAVIORAL/PSYCH: Negative. ENDOCRINE: Negative. Objective - Vital Signs Vital signs: Vital Signs Temp 97.7 F 11/06/19 08:50 Pulse 77 11/06/19 08:50 Resp 18 11/06/19 08:50 BP 164/80 11/06/19 08:50 Pulse Ox 93 L 11/06/19 07:00 Intake & Output 11/05/19 11/06/19 11/06/19 18:59 06:59 18:59 Intake Total 1200 1200 410 Output Total 1639 2024 45 Balance -440 -825 365 Weight 117.9 kg Intake: IV 1200 1200 100 Sodium Chloride 0.9% 1, 1200 1200 100 000 ml @ 20 mls/hr IV . Q24H [facility] Rx#:[id number] Blood Product 0 310 Rc Cpda-1 Unit 0 310 [id number] Output: Urine 1639 2024 45 Other: Voiding Method Indwelling Catheter Indwelling Catheter Indwelling Catheter - Exam General Appearance: Patient resting in the ICU bed and appears to be comfortable and in no acute distress. No respiratory distress noted. Neck HEENT: Supple, no lymphadenopathy, no thyroid enlargement, no carotid bruits. Lungs: Decreased breath sound bilaterally without rhonchi no crackles positive mild expiratory wheezes. Chest Wall: Decrease expansion with deep inspiration no tenderness and no deformity was found on exam, no costochondral pain or discomfort. Heart: Regular rate and rhythm, S1, S2 positive history +5 cm JVD with systolic murmur. Back: Symmetric. Abdomen: No abdominal distention, CAPD catheter in place, no tenderness. Mota catheter. Extremities: Trace edema slight change in color and mild dermatitis decreased pulses bilaterally. Pulses: 2+ and symmetric. Skin: Skin color, texture, tugor normal, no rashes or lesions. Neurologic: Alert and oriented 3 generalized weakness no focal deficit. - Labs CBC & Chem 7: 11/06/19 10:41 11/06/19 04:41 Labs: Abnormal Lab Results - Last 24 Hours (Table) 11/04/19 11/05/19 11/05/19 Range/Units 03:43 11:53 12:11 RBC 2.29 L (4.30-5.90) m/uL Hgb 7.0 L (13.0-17.5) gm/dL Hct 22.0 L (39.0-53.0) % RDW 16.1 H (11.5-15.5) % Eosinophils # (0-0.7) k/uL Chloride (98-107) mmol/L BUN (9-20) mg/dL Creatinine (0.66-1.25) mg/dL Glucose (74-99) mg/dL POC Glucose (mg/dL) 151 H (75-99) mg/dL Crossmatch See Detail 11/05/19 11/05/19 11/06/19 Range/Units 16:53 20:27 00:14 RBC (4.30-5.90) m/uL Hgb (13.0-17.5) gm/dL Hct (39.0-53.0) % RDW (11.5-15.5) % Eosinophils # (0-0.7) k/uL Chloride (98-107) mmol/L BUN (9-20) mg/dL Creatinine (0.66-1.25) mg/dL Glucose (74-99) mg/dL POC Glucose (mg/dL) 253 H 238 H 230 H (75-99) mg/dL Crossmatch 11/06/19 11/06/19 11/06/19 Range/Units 01:36 04:41 04:41 RBC 2.12 L (4.30-5.90) m/uL Hgb 6.4 L* (13.0-17.5) gm/dL Hct 20.2 L (39.0-53.0) % RDW 16.2 H (11.5-15.5) % Eosinophils # 0.8 H (0-0.7) k/uL Chloride 108 H (98-107) mmol/L BUN 59 H (9-20) mg/dL Creatinine 4.86 H (0.66-1.25) mg/dL Glucose 124 H (74-99) mg/dL POC Glucose (mg/dL) 197 H (75-99) mg/dL Crossmatch 11/06/19 11/06/19 Range/Units 07:01 09:58 RBC (4.30-5.90) m/uL Hgb (13.0-17.5) gm/dL Hct (39.0-53.0) % RDW (11.5-15.5) % Eosinophils # (0-0.7) k/uL Chloride (98-107) mmol/L BUN (9-20) mg/dL Creatinine (0.66-1.25) mg/dL Glucose (74-99) mg/dL POC Glucose (mg/dL) 122 H 179 H (75-99) mg/dL Crossmatch Microbiology - Last 24 Hours (Table) 11/04/19 09:32 Blood Culture - Preliminary Blood No Growth after 24 hours 11/04/19 09:21 Blood Culture - Preliminary Blood No Growth after 24 hours 11/04/19 08:45 Urine Culture - Final Urine,Voided 11/04/19 11:35 Gram Stain - Preliminary Ascites Fluid Body Fluid Culture - Preliminary Assessment and Plan Plan: 1. Acute blood loss anemia secondary to gross hematuria, status post transfusion of 2 units of packed RBCs. Consults with GI, appreciated. Xarelto on hold 2. Gross hematuria possibly related to cystitis or urinary tract infection. Consult with urology appreciated. Patient will need eventual cystoscopy. DDAVP ordered. Intermittent irrigation of Mota catheter. 3. Rectal bleed with no sign of bleeding-- ruled out. GI consult appreciated. Due to no signs of active GI bleed, Dr. Mabry has signed off. 4. End-stage renal disease on CAPD with retention of the PD fluid. Consult with Dr. Oropeza appreciated. Patient to resume CAPD. Fluid sent for studies. Lasix 80 mg by mouth twice daily. 5. Atherosclerotic heart disease. Patient follows with Dr. Spain. Consult with Dr. Herzog appreciated. Records from outside facility to be obtained. Unclear why patient is on Xarelto. Echocardiogram as above 6. Paroxysmal atrial fibrillation. Xarelto on hold. Patient is off Coumadin and started on Xarelto by Dr. Spain. Cardiology is following. 7. Diabetes mellitus type 2, insulin requiring. Continue insulin drip and transitioned to NovoLog scale along with NovoLog 7030, 24 units with breakfast to start tomorrow along with 12 units in the evening. 8. Hyperlipidemia: Continue patient on atorvastatin. 9. Hypothyroidism. Currently on levothyroxine 37.5 g IV daily. 10. BPH. Continue Flomax. Monitor for urinary retention. 11. Hypertension. Norvasc, Coreg, Bumex on hold. Patient is currently on IV hydralazine as needed and Lopressor 25 mg twice daily. Hydralazine 25 mg oral 3 times daily added. 12. Metabolic encephalopathy related to the bleeding, anemia, end-stage renal disease and retention of PD fluid. 13. GI prophylaxis: Patient be on pantoprazole IV. 14. DVT prophylaxis: Patient is off anticoagulation for now will continue Venodyne boots and knee-high MIRTHA hose. 15. Hyperkalemia secondary to end-stage renal disease. Improvement expected with CAPD. 16. Mild troponin elevation secondary to chronic kidney disease. Consult with cardiology appreciated. 17. History of alcoholic cardiomyopathy and chronic diastolic heart failure. 18. History of alcohol abuse and advanced liver disease. 19. Paroxysmal atrial fibrillation. Xarelto on hold. CODE STATUS: Full code. Discharge plan: To be determined Impression and plan of care have been directed as dictated by the signing physician. Carmina Collins nurse practitioner acting as scribe for signing physician.
--- NOTE | 2019-11-06 12:48 | P.PN ---
Subjective Progress Note Date: 11/06/19 CHIEF COMPLAINT: Abdominal pain HISTORY OF PRESENT ILLNESS: The patient is a 74-year-old male who presented with abdominal pain including gross hematuria following calhoun catheter placement. He is comfortable. Resting comfortably and the critical care unit bed. No reports of abdominal pain. Gross hematuria moderately improved. He is currently undergoing peritoneal dialysis today. ROS: No reports of nausea and vomiting. No fevers or chills. No new chest pain. PHYSICAL EXAM: VITAL SIGNS: Reviewed CONSTITUTIONAL: Well developed and in no acute distress. EYES: Conjuctivae without sclera icterus. Extraocular movements grossly intact. HEAD, EARS, NOSE, THROAT: Moist buccal mucosa. Head is atraumatic, normocephalic. Hears conversational speech. No nasal drainage. RESPIRATORY: Non-labored respirations and equal bilateral excursions. CARDIOVASCULAR: Palpable 2+ radial pulses. ABDOMEN: No peritonitis. Peritoneal dialysis clear. MUSCULOSKELETAL: No gross deformity of the lower extremities noted. No clubbing. No cyanosis. SKIN: Good skin turgor. Well perfused. NEUROLOGIC: Cranial nerves I through XII grossly intact. No focal or lateralizing signs. PSYCH: Appropriate affect. Alert and oriented to person, place and time. CLINICAL LABS: White blood cell count normal. Hgb up from 6.4 to 7.4 ASSESSMENT: 1. Peritoneal dialysis 2. Abdominal pain resolved 3. Hematuria 4. Acute blood loss anemia PLAN: 1. He has no abdominal pain. No surgical intervention needed. 2. Anemia improving. Objective - Vital Signs Vital signs: Vital Signs Temp 97.7 F 11/06/19 08:50 Pulse 70 11/06/19 10:00 Resp 16 11/06/19 10:00 BP 185/85 11/06/19 10:00 Pulse Ox 97 11/06/19 10:00 Intake & Output 11/05/19 11/06/19 11/06/19 18:59 06:59 18:59 Intake Total 1200 1200 510 Output Total 1639 Balance -440 826 988 Weight 117.9 kg Intake: IV 1200 1200 200 Sodium Chloride 0.9% 1, 1200 1200 200 000 ml @ 20 mls/hr IV . Q24H [facility] Rx#:[id number] Blood Product 0 310 Rc Cpda-1 Unit 0 310 [id number] Output: Urine 1640 2025 85 Other: Voiding Method Indwelling Catheter Indwelling Catheter Indwelling Catheter - Labs CBC & Chem 7: 11/06/19 10:41 11/06/19 04:41 Labs: Abnormal Lab Results - Last 24 Hours (Table) 11/04/19 11/05/19 11/05/19 Range/Units 03:43 16:53 20:27 RBC (4.30-5.90) m/uL Hgb (13.0-17.5) gm/dL Hct (39.0-53.0) % RDW (11.5-15.5) % Eosinophils # (0-0.7) k/uL Chloride (98-107) mmol/L BUN (9-20) mg/dL Creatinine (0.66-1.25) mg/dL Glucose (74-99) mg/dL POC Glucose (mg/dL) 253 H 238 H (75-99) mg/dL Crossmatch See Detail 11/06/19 11/06/19 11/06/19 Range/Units 00:14 01:36 04:41 RBC 2.12 L (4.30-5.90) m/uL Hgb 6.4 L* (13.0-17.5) gm/dL Hct 20.2 L (39.0-53.0) % RDW 16.2 H (11.5-15.5) % Eosinophils # 0.8 H (0-0.7) k/uL Chloride (98-107) mmol/L BUN (9-20) mg/dL Creatinine (0.66-1.25) mg/dL Glucose (74-99) mg/dL POC Glucose (mg/dL) 230 H 197 H (75-99) mg/dL Crossmatch 11/06/19 11/06/19 11/06/19 Range/Units 04:41 07:01 09:58 RBC (4.30-5.90) m/uL Hgb (13.0-17.5) gm/dL Hct (39.0-53.0) % RDW (11.5-15.5) % Eosinophils # (0-0.7) k/uL Chloride 108 H (98-107) mmol/L BUN 59 H (9-20) mg/dL Creatinine 4.86 H (0.66-1.25) mg/dL Glucose 124 H (74-99) mg/dL POC Glucose (mg/dL) 122 H 179 H (75-99) mg/dL Crossmatch 11/06/19 11/06/19 Range/Units 10:41 11:37 RBC 2.41 L (4.30-5.90) m/uL Hgb 7.4 L (13.0-17.5) gm/dL Hct 23.5 L (39.0-53.0) % RDW 15.6 H (11.5-15.5) % Eosinophils # (0-0.7) k/uL Chloride (98-107) mmol/L BUN (9-20) mg/dL Creatinine (0.66-1.25) mg/dL Glucose (74-99) mg/dL POC Glucose (mg/dL) 101 H (75-99) mg/dL Crossmatch Microbiology - Last 24 Hours (Table) 11/04/19 09:21 Blood Culture - Preliminary Blood No Growth after 48 hours 11/04/19 09:32 Blood Culture - Preliminary Blood No Growth after 48 hours 11/04/19 08:45 Urine Culture - Final Urine,Voided 11/04/19 11:35 Gram Stain - Preliminary Ascites Fluid Body Fluid Culture - Preliminary Assessment and Plan (1) Abdominal pain, generalized Current Visit: Yes Status: Acute Code(s): R10.84 - GENERALIZED ABDOMINAL PAIN SNOMED Code(s): 527726851 (2) Peritoneal dialysis catheter mechanical complication Current Visit: Yes Status: Acute Code(s): T85.691A - [facility] COMPL OF INTRAPERITONEAL DIALYSIS CATHETER, INIT ENCNTR SNOMED Code(s): 139412775 (3) Gross hematuria Current Visit: Yes Status: Acute Code(s): R31.0 - GROSS HEMATURIA SNOMED Code(s): 820954670
[2019-11-06 17:00] LABS: Glucose,Whole Blood 67 mg/dL (75-99)
[2019-11-06 17:16] LABS: Glucose,Whole Blood 85 mg/dL (75-99)
--- NOTE | 2019-11-06 18:48 | P.PN ---
Progress Note - Text Progress Note Date: 11/06/19 The patient is afebrile and hemodynamically stable. He was given 1 unit of packed red blood cells last night due to a hemoglobin of 6.4. His hemoglobin this morning is 7.4. Urine draining from the catheter is pink tinged and apparently only a small amount of clots have been present over the last 12 hours. If the patient's urine continues to clear it may be possible to remove his catheter either tomorrow or Thursday for a voiding trial. The patient should be monitored with a bladder scan unit to ensure that he does not develop urinary retention is unclear whether he was emptying his bladder completely prior to being admitted. I can perform cystoscopy in my office sometime later in the month for further evaluation of the source of his hematuria. The patient should stay off anticoagulants until then.
[2019-11-06 21:15] LABS: Glucose,Whole Blood 205 mg/dL (75-99)
[2019-11-07] MEDS: DIALYSIS (PERIT 2.5%) 2,000 ML 50 G/2,000 ML BAG INTRAPERIT SCH ×2 (00:28→12:00)
[2019-11-07] MEDS: PIPERACILLIN-TAZOBACTAM 3.375 GM in SODIUM CHLORIDE 0.9% 100 ML IVPB SCH ×2 (00:28→12:03)
[2019-11-07 05:05] LABS: HCT 25.1 % (39.0-53.0); Hypochromasia Slight; MCH 31.2 pg (25.0-35.0); MCV 97.6 fL (80.0-100.0); Macrocytosis Slight; Mean Platelet Volume 8.7; Platelet Count 243 k/uL (150-450); RBC 2.57 m/uL (4.30-5.90); RDW 15.9 % (11.5-15.5); WBC 7.5 k/uL (3.8-10.6)
[2019-11-07 05:14] LABS: Calcium 8.7 mg/dL (8.4-10.2); Potassium 4.4 mmol/L (3.5-5.1)
[2019-11-07] MEDS: DIALYSIS (PERIT 1.5%) 2,000 ML 30 G/2,000 ML BAG INTRAPERIT SCH ×2 (05:54→18:13)
[2019-11-07] MEDS: INSULN ASP PRT/INSULIN ASPART 100 UNIT/ML 10 ML VIAL SQ SCH (06:58)
[2019-11-07] MEDS: INSULIN ASPART (NovoLOG) 100 UNIT/ML VIAL SQ SCH ×4 (06:58→21:25)
[2019-11-07] MEDS: LEVOTHYROXINE 75 MCG TAB PO SCH (06:59)
[2019-11-07 07:00] LABS: Glucose,Whole Blood 146 mg/dL (75-99)
[2019-11-07 09:37] LABS: Ferritin 165.9 ng/mL (22.0-322.0)
[2019-11-07 09:45] LABS: % Iron Saturation 8.18 (15.00-50.00)
--- NOTE | 2019-11-07 09:51 | P.PN ---
Subjective Progress Note Date: 11/07/19 Principal diagnosis: Acute blood loss anemia and hematuria and ascites This is a 74-year-old white male with history of chronic end-stage renal disease, on peritoneal dialysis, history of hypertension, chronic anemia, hypothyroidism, dyslipidemia, history of diastolic congestive heart failure, insulin-dependent diabetes which was diagnosed over 20 years ago, patient had a recent peritoneal catheter placement for dialysis, and this was done supposedly at [facility]. Patient was brought into the ER mostly with a few days' history of increased shortness of breath, increased abdominal distention, he had no cough, no fever, no chills, no hemoptysis, no chest pain. He has been complaining of severe low back pain for the last few days. Workup in the ER included a CT of the chest chest x-ray, his CT of the chest showed small pleural effusions, small pericardial effusion, mild basilar patchy atelectasis, and cardiomegaly, there was also evidence of significant abdominal ascites. Patient was admitted initially to a monitor bed on selective, and his admitting di agnosis was basically anemia and possible GI bleeding. Although his Hemoccult stool was negative. Patient was later transferred to the ICU mostly because of concern about abdominal sepsis, increased abdominal girth, ascites, and increased shortness of breath requiring high flow nasal cannula at 10 L/m. I saw the patient in the ICU, and I have recommended broad-spectrum antibiotics coverage, surgical consultation, urologic consultation, renal ultrasound to evaluate his gross hematuria, and I also recommended a CT of the abdomen and pelvis. We'll also recommend ultrasound or CT-guided paracentesis by interventional radiology. Fluid from the arterial catheter will be removed and will be sent for different diagnostic studies including cultures cell count and differential. ABG on 28% FiO2 showed a pO2 of 72 be CO2 of 45 and pH of 7.35. WBC count 9.1 hemoglobin 7.7. Electrolytes and renal profile were noted, and his hyperkalemia is being addressed by nephrology was also consulted on the case. Troponin on admission was 0.047. Urinalysis showed mostly gross hematuria. Patient was reevaluated today on 11/05/2019, remains in the ICU, patient had a dramatically cut improvement yesterday after draining 6 L of fluids from his peritoneal cavity via his dialysis catheter. Patient felt much better almost immediately. And the Gram stain seems to be negative, does not seem to be infe cted peritoneal fluid so far. However the patient remains empirically on antibiotics. He is hemodynamically stable. Continues to have gross hematuria, and that being addressed by urology. No plans for any immediate intervention, recommending frequent flushing via Mota catheter. Renal ultrasound and CT of the abdomen and pelvis results were reviewed. No active surgical issues are being considered at this point. Hemoglobin today is 7.1WBC count is 8.1. electrolytes are relatively normal. His BUN is 71 creatinine is 5.60, being followed by nephrology, and restarted on his peritoneal dialysis. Chest x-ray this morning showed cardiomegaly and improved aeration of the left lung base. Reevaluated today on 11/06/2019. Patient remains in the ICU, doing fairly well, on room air, in no distress. Patient received a unit of packed RBCs today for low hemoglobin of 6.4, follow-up hemoglobin was 7.4. Patient denies any complaints, denies any shortness of breath no cough no wheezing no chest pain no nausea no vomiting no abdominal pain. He is being followed by nephrology for his end-stage renal disease, remains on peritoneal dialysis On 11/07/2019 in the intensive care unit, resting comfortably in bed, he is in no acute distress, currently on room air, with a pulse ox of 98%, hemod ynamically stable, no fever or chills. Tolerating regular diet, no complaints of shortness of breath, no chest pain, today's hemoglobin is 8.0. Renal profile is improving, electrolytes are within normal limits. No specific complaints, no acute events overnight. No complaints of abdominal pain. His is a relative remains on hold, patient is in A. fib with a controlled rate. He was seen by urology service and patient supposed to have a cystoscopy on an outpatient basis. Continues on his peritoneal dialysis exchanges, Objective - Vital Signs Vital signs: Vital Signs Temp 97.5 F L 11/07/19 08:00 Pulse 82 11/07/19 08:00 Resp 20 11/07/19 08:00 BP 154/67 11/07/19 08:00 Pulse Ox 98 11/07/19 08:00 Intake & Output 11/06/19 11/07/19 11/07/19 18:59 06:59 18:59 Intake Total 1870 1200 Output Total 1235 2800 Balance 635 -1600 Weight 118 kg Intake: IV 1200 1200 Sodium Chloride 0.9% 1, 1200 1200 000 ml @ 20 mls/hr IV . Q24H [facility] Rx#:[id number] Oral 360 Blood Product 310 Rc Cpda-1 Unit 310 [id number] Output: Urine 1235 2800 Other: Voiding Method Indwelling Catheter Indwelling Catheter # Bowel Movements 1 - Exam GENERAL EXAM: Alert, very pleasant, 74-year-old male comfortable in no apparent distress. HEAD: Normocephalic/atraumatic. EYES: Normal reaction of pupils, equal size. Conjunctiva pink, sclera white. NOSE: Clear with pink turbinates. THROAT: No erythema or exudates. NECK: No masses, no JVD, no thyroid enlargement, no adenopathy. CHEST: No chest wall deformity. Symmetrical expansion. LUNGS: Equal air entry with no crackles, wheeze, rhonchi or dullness. CVS: Irregular rate and rhythm, normal S1 and S2, no gallops, no murmurs, no rubs ABDOMEN: Soft, nontender, obese, peritoneal dialysis catheter is present. No hepatosplenomegaly, normal bowel sounds, no guarding or rigidity. EXTREMITIES: No clubbing, no edema, no cyanosis, 2+ pulses and upper and lower extremities. MUSCULOSKELETAL: Muscle strength and tone normal. SPINE: No scoliosis or deformity SKIN: No rashes CENTRAL NERVOUS SYSTEM: Alert and oriented -3. No focal deficits, tone is normal in all 4 extremities. PSYCHIATRIC: Alert and oriented -3. Appropriate affect. Intact judgment and insight. - Labs CBC & Chem 7: 11/07/19 04:48 11/07/19 04:54 Labs: Abnormal Lab Results - Last 24 Hours (Table) 11/06/19 11/06/19 11/06/19 Range/Units 09:58 10:41 11:37 RBC 2.41 L (4.30-5.90) m/uL Hgb 7.4 L (13.0-17.5) gm/dL Hct 23.5 L (39.0-53.0) % RDW 15.6 H (11.5-15.5) % BUN (9-20) mg/dL Creatinine (0.66-1.25) mg/dL Glucose (74-99) mg/dL POC Glucose (mg/dL) 179 H 101 H (75-99) mg/dL 11/06/19 11/06/19 11/07/19 Range/Units 16:48 21:04 04:48 RBC 2.57 L (4.30-5.90) m/uL Hgb 8.0 L (13.0-17.5) gm/dL Hct 25.1 L (39.0-53.0) % RDW 15.9 H (11.5-15.5) % BUN (9-20) mg/dL Creatinine (0.66-1.25) mg/dL Glucose (74-99) mg/dL POC Glucose (mg/dL) 67 L 205 H (75-99) mg/dL 11/07/19 11/07/19 Range/Units 04:54 06:49 RBC (4.30-5.90) m/uL Hgb (13.0-17.5) gm/dL Hct (39.0-53.0) % RDW (11.5-15.5) % BUN 50 H (9-20) mg/dL Creatinine 4.13 H (0.66-1.25) mg/dL Glucose 116 H (74-99) mg/dL POC Glucose (mg/dL) 146 H (75-99) mg/dL Microbiology - Last 24 Hours (Table) 11/04/19 11:35 Anaerobic Culture - Preliminary Peritoneal Fluid 11/04/19 11:35 Gram Stain - Preliminary Ascites Fluid Body Fluid Culture - Preliminary 11/04/19 09:21 Blood Culture - Preliminary Blood No Growth after 48 hours 11/04/19 09:32 Blood Culture - Preliminary Blood No Growth after 48 hours Assessment and Plan Plan: Assessment: #1. Abdominal distention and ascites significantly improved after 6 L of fluid via peritoneal catheter, cultures are negative #2. Chronic renal failure, end-stage renal disease, on peritoneal dialysis #3. Acute and chronic anemia related to gross hematuria, negative Hemoccult stools, doubt GI bleeding, patient cystoscopy is planned #4. His hematuria possible cystitis #5. History of hypothyroidism #6. History of hypertension #7. History of insulin-dependent diabetes mellitus #8. History of anasarca, advanced liver disease, possible liver cirrhosis #9. History of nephrotic syndrome #10. History of diastolic congestive heart failure #11. History of dyslipidemia #12. History of benign prostatic hypertrophic #13. Chronic pain syndrome Plan: Hemoglobin is stable, he remains hemodynamically stable, Xarelto remains on hold. No complaint shortness of breath, no complaints of chest pain, no complaints of abdominal pain. No fever or chills, cultures are negative thus far, continue with antibiotics, continue with GI and DVT prophylaxis, patient is stable to transfer out of the ICU to a regular medical surgical floor. I performed a history & physical examination of the patient and discussed their management with my nurse practitioner, Alayna Ortiz. I reviewed the nurse practitioner's note and agree with the documented findings and plan of care. Lung sounds are positive for clear breath sounds. The findings and the impression was discussed with the patient. I attest to the documentation by the nurse practitioner. Time with Patient: Less than 30
[2019-11-07] MEDS: TAMSULOSIN 0.4 MG CAP.ER.24H PO SCH (09:57)
[2019-11-07] MEDS: ATORVASTATIN 40 MG TAB PO SCH (09:57)
[2019-11-07] MEDS: hydrALAZINE HCL 25 MG TAB PO SCH ×3 (09:57→21:25)
[2019-11-07] MEDS: PANTOPRAZOLE 40 MG/10 ML VIAL IV SCH (09:57)
[2019-11-07] MEDS: FOLIC ACID-VIT B COMPLEX-VIT C 1 CAP PO SCH (09:57)
[2019-11-07] MEDS: FUROSEMIDE 80 MG TAB PO SCH ×2 (09:57→17:38)
[2019-11-07] MEDS: METOPROLOL TARTRATE 25 MG TAB PO SCH ×2 (09:57→21:25)
--- NOTE | 2019-11-07 10:20 | CDI ---
Documentation Clarification Form Date: 11/07/2019 9:51:57 AM From: Carmen Le RN CCDS Admit Date: 11/04/2019 6:45:00 AM Patient Name: Lloyd Baig Visit Number: [id number] Discharge Date: ATTENTION: The Clinical Documentation Specialists (CDI) and [facility] Coding Staff appreciate your assistance in clarifying documentation. Please respond to the clarification below the line at the bottom and electronically sign. The CDI & [facility] Coding staff will review the response and follow-up if needed. Please note: Queries are made part of the Legal Health Record. If you have any questions, please contact the author of this message via ITS. Dr. Andrade Walter Per the H & P mild hypoxia worsening shortness of breath History/Risk Factors: 79-year-old male presents to the ED with abdominal pain, acute anemia, gross hematuria. Medical history of DM2; HTN; Diastolic Heart Failure; Atherosclerotic Heart Disease; ESRD; CAPD Tobacco use: Former Smoker Clinical Indicators: Vital signs:11/04 0300 156/70 80 20 96% 2L nasal cannula; 11/04 0830 180/83 73 21 89% 6L nasal cannula; 0900 14 94% 8L nasal cannula; 0930 12 99% 8L High flow nasal cannula 11/05 - Lung/Breathing assessment: Decreased breath sound bilaterally without rhonchi no crackles positive mild expiratory wheezes. Internal Medicine Progress Note 11/05 11/04 ABG/CBG: pH 7.35 pO2 72 pCO2 42 Treatment: 11/04 0300 2L nasal cannula; 0830 6L nasal cannula; 0900 8L nasal cannula; 0930 8L high flow nasal cannula In your professional opinion, can you please clarify if these findings signify one of the following conditions? * Acute Respiratory Failure * Acute Respiratory Distress * Other Diagnosis, please specify * Unable to determine Specificity: If known, further specify (if known): With hypercapnia? (pCO2 >50 and pH <7.35) With hypoxia? (pO2 <60 mm Hg or SpO2 <91% on room air) (Last Query Form Revision: July 2019) MTDD
[2019-11-07 12:00] LABS: Glucose,Whole Blood 145 mg/dL (75-99)
--- NOTE | 2019-11-07 12:14 | P.PN ---
Subjective Progress Note Date: 11/07/19 74-year-old male one of Dr. Vidales patient with end-stage renal disease on [place] dialysis done it through nephrology group at [facility] related to [facility]. Patient is on of Dr. Vidales patient was known to have history of atherosclerotic heart disease, hypertension, hyperlipidemia, diastolic congestive heart failure, insulin-dependent diabetes and advance kidney disease who apparently had 3 hernia repair in July 2019 and had CAPD catheter placement at [facility] same time and had started on peritoneal dialysis over the last few weeks. Patient presented to demurs department today at [facility] complaining of worsening lower back pain along with abdominal pain and distention and gross hematuria with questionable of bright red blood per rectum. He was anemic with hemoglobin of 7.1 hemodynamically not stable at the time hypotensive and hypoxic was started on blood transfusion and admit patient initially to the floor but was overflow in the ICU patient become more instable had more hemorrhage and more bleeding specially hematuria mild hypoxia worsening shortness of breath with distended abdomen looks like he had over 4-5 L of CAPD fluid was never drained consult intensive care along with nephrology and urology his troponin was elevated we'll consult cardiology as well and for whatever we have reason patient has been on anticoagulation with severe coagulopathy until 2 weeks ago apparently was moving into one of the oral hypoglycemic agent most likely Eliquis, patient doesn't remember the dose which made the bleeding much worse he doesn't remember why he is on medication the first place but he does seen a product support consultant at [facility] which he believes was on it for nonsustained A. fib. GI bleed kind of was excluded with negative Hemoccult and no blood coming out of the rectum. 11/05: The patient is seen and followed by multiple consultants. Dr. Herzog is following and obtaining workup done at [facility]. Patient's primary product support consultant is Dr. Spain. He is added and Lopressor 25 mg twice daily and stopped fenofibrate with plan to continue statin only. Echocardiogram reveals EF of 60-65% with moderate concentric left ventricular hypertrophy, mild aortic valve sclerosis, trace mitral regurgitation, mild tricuspid regurgitation, mild pulmonary hypertension. Patient is followed by Dr. Spaulding for intensive care management. Patient is on broad-spectrum antibiotics for coverage of abdominal sepsis and cystitis. Patient is followed by general surgery Dr. Day. No plan for any surgical intervention. Dr. León has evaluated for gross hematuria. Patient's bladder to be irrigated periodically. He may need a larger diameter catheter if there is any significant clots present within the bladder. Cystoscopy will eventually need to be set up for further evaluation. Dr. Oropeza is following for end-stage renal disease on CAPD. Fluid was sent for evaluation. CAT scan of the abdomen to be ordered before resuming peritoneal dialysis. Patient was evaluated by Dr. Denton for severe anemia secondary to hematuria. Xarelto is on hold. CAT scan of the abdomen and pelvis with contrast completed yesterday reveals small amount of ascites not significant for patient on peritoneal dialysis. Well formed small to moderate size anterior left pelvic fluid collection. Suspect pseudocyst related. 2 nail dialysis. Other etiologies cannot be excluded. Abnormal bladder wall thickening may reflect product of underlying neurogenic bladder. Repeat chest x-ray reveals cardiomegaly. Improved aeration left lung base. Repeat lab work this morning reveals a hemoglobin of 7.1, potassium 5.3, BUN 71 creatinine 5.60. Blood sugars running between 107 and 145. Patient is status post 2 units of packed R BCs. Paracentesis has been canceled as fluid was able to be drawn off peritoneal dialysis catheter. Patient was resumed on CAPD yesterday. Mota catheter draining bloody urine, no clots noted. Xarelto has been on hold. This is in place because of atrial fibrillation. Patient started on Lasix 80 mg twice daily and DDAVP has been ordered. Patient has been taken off insulin drip and we will start lower dose of 7030 insulin along with NovoLog scale. 11/06: Patient remains in intensive care unit waiting a bed. He has been downgraded to [facility] without telemetry. Patient is not eating very much as he does not like the food here. He most likely does not like the Diovan. Blood sugars are running between 122 and 253. He will be continued on the same dosing of the NovoLog mix 7030. He did receive 1 additional dose at 1 AM of NovoLog. The patient has been continued on CAPD. Blood pressure has been elevated and patient will be started on oral hydralazine. 11/07: Patient remains in the intensive care unit waiting for [facility] bed. Yesterday blood sugars were low at 67 and nighttime insulin was held. We have decreased morning and night NovoLog mix 7030. Patient ate a decent breakfast this morning but overall has been eating very little as he states he does not like the food. Repeat blood work reveals hemoglobin of 8.0 and he is status post total of 3 units of packed RBCs. Electrolytes normal, BUN 15 creatinine 4.13. Mota catheter remains in place and hematuria has resolved. Patient has been afebrile, heart rate 82, blood pressure 154/67, pulse ox 98% on room air. Review of Systems CONSTITUTIONAL: Denies fever, denies chills. EYES: No icterus sclerae, no conjunctivitis. EARS, NOSE, MOUTH, THROAT, and FACE: No sore throat, lymphadenopathy, carotid bruits or deformity. RESPIRATORY: Mild shortness of breath. CARDIOVASCULAR: Positive PND orthopnea palpitation or angina. GASTROINTESTINAL: Denies nausea, denies vomiting no rectal bleed, no distention or masses. GENITOURINARY: Positive hematuria more gross with significant clot. INTEGUMENT/BREAST: Negative for any muscular injury with mild osteoarthritis.. HEMATOLOGIC/LYMPHATIC: Negative for bleed or purpura. MUSCULOSKELTAL: Negative for Myalgia or arthralgia. NEURLOGICAL: No LOC, Sz or syncope, blurred vision dizziness or abnormality.. BEHAVIORAL/PSYCH: Negative. ENDOCRINE: Negative. Objective - Vital Signs Vital signs: Vital Signs Temp 97.5 F L 11/07/19 08:00 Pulse 82 11/07/19 08:00 Resp 20 11/07/19 08:00 BP 154/67 11/07/19 08:00 Pulse Ox 98 11/07/19 08:00 Intake & Output 11/06/19 11/07/19 11/07/19 18:59 06:59 18:59 Intake Total 1870 1200 Output Total 1235 2800 300 Balance 635 -1600 -300 Weight 118 kg Intake: IV 1200 1200 Sodium Chloride 0.9% 1, 1200 1200 000 ml @ 20 mls/hr IV . Q24H [facility] Rx#:[id number] Oral 360 Blood Product 310 Rc Cpda-1 Unit 310 [id number] Output: Urine 1235 2800 300 Other: Voiding Method Indwelling Catheter Indwelling Catheter Indwelling Catheter # Bowel Movements 1 - Exam General Appearance: Patient resting in the ICU bed and appears to be comfortable and in no acute distress. No respiratory distress noted. Neck HEENT: Supple, no lymphadenopathy, no thyroid enlargement, no carotid b ruits. Lungs: Decreased breath sound bilaterally without rhonchi no crackles positive mild expiratory wheezes. Chest Wall: Decrease expansion with deep inspiration no tenderness and no deformity was found on exam, no costochondral pain or discomfort. Heart: Regular rate and rhythm, S1, S2 positive history +5 cm JVD with systolic murmur. Back: Symmetric. Abdomen: No abdominal distention, CAPD catheter in place, no tenderness. Mota catheter with clear gerard urine. Extremities: Trace edema slight change in color and mild dermatitis decreased pulses bilaterally. Pulses: 2+ and symmetric. Skin: Skin color, texture, tugor normal, no rashes or lesions. Neurologic: Alert and oriented 3 generalized weakness no focal deficit. - Labs CBC & Chem 7: 11/07/19 04:48 11/07/19 04:54 Labs: Abnormal Lab Results - Last 24 Hours (Table) 11/06/19 11/06/19 11/06/19 Range/Units 04:41 10:41 11:37 RBC 2.41 L (4.30-5.90) m/uL Hgb 7.4 L (13.0-17.5) gm/dL Hct 23.5 L (39.0-53.0) % RDW 15.6 H (11.5-15.5) % BUN (9-20) mg/dL Creatinine (0.66-1.25) mg/dL Glucose (74-99) mg/dL POC Glucose (mg/dL) 101 H (75-99) mg/dL Iron 26 L (65-175) ug/dL % Saturation 8.18 L (15.00-50.00) 11/06/19 11/06/19 11/07/19 Range/Units 16:48 21:04 04:48 RBC 2.57 L (4.30-5.90) m/uL Hgb 8.0 L (13.0-17.5) gm/dL Hct 25.1 L (39.0-53.0) % RDW 15.9 H (11.5-15.5) % BUN (9-20) mg/dL Creatinine (0.66-1.25) mg/dL Glucose (74-99) mg/dL POC Glucose (mg/dL) 67 L 205 H (75-99) mg/dL Iron (65-175) ug/dL % Saturation (15.00-50.00) 11/07/19 11/07/19 Range/Units 04:54 06:49 RBC (4.30-5.90) m/uL Hgb (13.0-17.5) gm/dL Hct (39.0-53.0) % RDW (11.5-15.5) % BUN 50 H (9-20) mg/dL Creatinine 4.13 H (0.66-1.25) mg/dL Glucose 116 H (74-99) mg/dL POC Glucose (mg/dL) 146 H (75-99) mg/dL Iron (65-175) ug/dL % Saturation (15.00-50.00) Microbiology - Last 24 Hours (Table) 11/04/19 11:35 Anaerobic Culture - Preliminary Peritoneal Fluid 11/04/19 11:35 Gram Stain - Preliminary Ascites Fluid Body Fluid Culture - Preliminary 11/04/19 09:21 Blood Culture - Preliminary Blood No Growth after 48 hours 11/04/19 09:32 Blood Culture - Preliminary Blood No Growth after 48 hours Assessment and Plan Plan: 1. Acute blood loss anemia secondary to gross hematuria, status post transfusion of 3 units of packed RBCs. Consults with GI, appreciated. Xarelto on hold. Continue Aranesp 2. Gross hematuria possibly related to cystitis or urinary tract infection. Consult with urology appreciated. 3. Rectal bleed with no sign of bleeding-- ruled out. GI consult appreciated. Due to no signs of active GI bleed, Dr. Mabry has signed off. 4. End-stage renal disease on CAPD with retention of the PD fluid. Consult with Dr. Oropeza appreciated. Patient to resume CAPD. Fluid sent for studies. Lasix 80 mg by mouth twice daily. 5. Atherosclerotic heart disease. Patient follows with Dr. Spain. Consult with Dr. Herzog appreciated. Echocardiogram as above 6. Paroxysmal atrial fibrillation. Xarelto on hold. Patient is off Coumadin and started on Xarelto by Dr. Spain. Cardiology is following. Continue Lopressor 25 mg twice daily 7. Diabetes mellitus type 2, insulin requiring, uncontrolled with hypoglycemia. Insulin treat decreased to NovoLog 7030 12 units twice daily and NovoLog scale. 8. Hyperlipidemia: Continue patient on atorvastatin. 9. Hypothyroidism. Currently on levothyroxine 150 g oral daily. 10. BPH. Continue Flomax. Monitor for urinary retention. 11. Hypertension. Coreg, Bumex on hold. Patient is currently on IV hydralazine as needed and Lopressor 25 mg twice daily. Hydralazine 25 mg oral 3 times daily added. Patient will be resumed on Norvasc. 12. Metabolic encephalopathy related to the bleeding, anemia, end-stage renal disease and retention of PD fluid. 13. GI prophylaxis: Patient be on pantoprazole IV. 14. DVT prophylaxis: Patient is off anticoagulation for now will continue Venodyne boots and knee-high MIRTHA hose. 15. Hyperkalemia secondary to end-stage renal disease. Improvement expected with CAPD. 16. Mild troponin elevation secondary to chronic kidney disease. Consult with cardiology appreciated. 17. History of alcoholic cardiomyopathy and chronic diastolic heart failure. 18. History of alcohol abuse and advanced liver disease. 19. Acute hypoxic respiratory failure, resolved. CODE STATUS: Full code. Discharge plan: To be determined Impression and plan of care have been directed as dictated by the signing physician. Carmina Collins nurse practitioner acting as scribe for signing physician.
[2019-11-07 17:03] LABS: Glucose,Whole Blood 236 mg/dL (75-99)
[2019-11-07] MEDS: SODIUM CHLORIDE 0.9% 1,000 ML IV SCH (17:10)
[2019-11-07] MEDS ORDERED: INSULN ASP PRT/INSULIN ASPART 100 UNIT/ML 10 ML VIAL SQ SCH (17:30)
[2019-11-07] MEDS: amLODIPine 5 MG TAB PO SCH (17:38)
--- NOTE | 2019-11-07 17:52 | PN ---
PROGRESS NOTE Patient is seen for followup for end-stage renal disease. He is currently maintained on CAPD. He is tolerating his treatments well. Blood pressure has improved since admission. He is not as high. Hematuria has improved as well. The patient is being followed by Urology. He is status post packed RBCs transfusion. PHYSICAL EXAMINATION: This morning, blood pressure was 154/67, heart rate 82 per minute, patient is afebrile examination of the heart S1, S2. Examination of the lungs, decreased breath sounds at bases. Abdomen is soft, nontender. Examination of lower extremities shows chronic skin changes. No significant edema noted. LAB: Show sodium 140, potassium 4.4, chloride 107 BUN 50, creatinine 4.1, hemoglobin 8.0 g/dL. ASSESSMENT: 1. End-stage renal disease, on peritoneal dialysis, continue current PD exchanges. 2. Hypertension, partly volume sensitive, currently improved. 3. Anemia secondary to significant hematuria, status post packed RBCs transfusion. Maintained on Aranesp as well. 4. Paroxysmal atrial fibrillation, currently not on any anticoagulation. The patient had been on Xarelto. He had also been on Coumadin. INR was 1.2 on initial admission. 5. Hyperkalemia on initial admission. Currently improved. PLAN: Continue current PD exchanges. Repeat labs in a.m. MMODL / IJN: [id number] /
[2019-11-07 20:28] LABS: Glucose,Whole Blood 299 mg/dL (75-99)
[2019-11-07 21:24] LABS: Glucose,Whole Blood 254 mg/dL (75-99)
[2019-11-08] MEDS: PIPERACILLIN-TAZOBACTAM 3.375 GM in SODIUM CHLORIDE 0.9% 100 ML IVPB SCH (00:08)
[2019-11-08] MEDS: DIALYSIS (PERIT 2.5%) 2,000 ML 50 G/2,000 ML BAG INTRAPERIT SCH ×2 (00:09→12:33)
[2019-11-08 00:14] VITALS: PULSE 85; TEMP 98.2
[2019-11-08] MEDS: DIALYSIS (PERIT 1.5%) 2,000 ML 30 G/2,000 ML BAG INTRAPERIT SCH (05:56)
[2019-11-08 07:01] LABS: Glucose,Whole Blood 141 mg/dL (75-99)
[2019-11-08] MEDS: INSULIN ASPART (NovoLOG) 100 UNIT/ML VIAL SQ SCH ×2 (07:06→12:33)
[2019-11-08] MEDS: INSULN ASP PRT/INSULIN ASPART 100 UNIT/ML 10 ML VIAL SQ SCH (07:06)
[2019-11-08] MEDS: LEVOTHYROXINE 75 MCG TAB PO SCH (07:11)
[2019-11-08] MEDS: ATORVASTATIN 40 MG TAB PO SCH (08:19)
[2019-11-08] MEDS: METOPROLOL TARTRATE 25 MG TAB PO SCH (08:19)
[2019-11-08] MEDS: PANTOPRAZOLE 40 MG/10 ML VIAL IV SCH (08:19)
[2019-11-08] MEDS: TAMSULOSIN 0.4 MG CAP.ER.24H PO SCH (08:22)
[2019-11-08] MEDS: hydrALAZINE HCL 25 MG TAB PO SCH (08:22)
[2019-11-08] MEDS: FUROSEMIDE 80 MG TAB PO SCH (08:22)
[2019-11-08] MEDS: FOLIC ACID-VIT B COMPLEX-VIT C 1 CAP PO SCH (08:22)
[2019-11-08] MEDS: amLODIPine 5 MG TAB PO SCH (08:22)
--- NOTE | 2019-11-08 08:25 | P.PN ---
Subjective Progress Note Date: 11/08/19 Principal diagnosis: Acute blood loss anemia and hematuria and ascites This is a 74-year-old white male with history of chronic end-stage renal disease, on peritoneal dialysis, history of hypertension, chronic anemia, hypothyroidism, dyslipidemia, history of diastolic congestive heart failure, insulin-dependent diabetes which was diagnosed over 20 years ago, patient had a recent peritoneal catheter placement for dialysis, and this was done supposedly at [facility]. Patient was brought into the ER mostly with a few days' history of increased shortness of breath, increased abdominal distention, he had no cough, no fever, no chills, no hemoptysis, no chest pain. He has been complaining of severe low back pain for the last few days. Workup in the ER included a CT of the chest chest x-ray, his CT of the chest showed small pleural effusions, small pericardial effusion, mild basilar patchy atelectasis, and cardiomegaly, there was also evidence of significant abdominal ascites. Patient was admitted initially to a monitor bed on selective, and his admitting di agnosis was basically anemia and possible GI bleeding. Although his Hemoccult stool was negative. Patient was later transferred to the ICU mostly because of concern about abdominal sepsis, increased abdominal girth, ascites, and increased shortness of breath requiring high flow nasal cannula at 10 L/m. I saw the patient in the ICU, and I have recommended broad-spectrum antibiotics coverage, surgical consultation, urologic consultation, renal ultrasound to evaluate his gross hematuria, and I also recommended a CT of the abdomen and pelvis. We'll also recommend ultrasound or CT-guided paracentesis by interventional radiology. Fluid from the arterial catheter will be removed and will be sent for different diagnostic studies including cultures cell count and differential. ABG on 28% FiO2 showed a pO2 of 72 be CO2 of 45 and pH of 7.35. WBC count 9.1 hemoglobin 7.7. Electrolytes and renal profile were noted, and his hyperkalemia is being addressed by nephrology was also consulted on the case. Troponin on admission was 0.047. Urinalysis showed mostly gross hematuria. Patient was reevaluated today on 11/05/2019, remains in the ICU, patient had a dramatically cut improvement yesterday after draining 6 L of fluids from his peritoneal cavity via his dialysis catheter. Patient felt much better almost immediately. And the Gram stain seems to be negative, does not seem to be infe cted peritoneal fluid so far. However the patient remains empirically on antibiotics. He is hemodynamically stable. Continues to have gross hematuria, and that being addressed by urology. No plans for any immediate intervention, recommending frequent flushing via Mota catheter. Renal ultrasound and CT of the abdomen and pelvis results were reviewed. No active surgical issues are being considered at this point. Hemoglobin today is 7.1WBC count is 8.1. electrolytes are relatively normal. His BUN is 71 creatinine is 5.60, being followed by nephrology, and restarted on his peritoneal dialysis. Chest x-ray this morning showed cardiomegaly and improved aeration of the left lung base. Reevaluated today on 11/06/2019. Patient remains in the ICU, doing fairly well, on room air, in no distress. Patient received a unit of packed RBCs today for low hemoglobin of 6.4, follow-up hemoglobin was 7.4. Patient denies any complaints, denies any shortness of breath no cough no wheezing no chest pain no nausea no vomiting no abdominal pain. He is being followed by nephrology for his end-stage renal disease, remains on peritoneal dialysis On 11/07/2019 in the intensive care unit, resting comfortably in bed, he is in no acute distress, currently on room air, with a pulse ox of 98%, hemod ynamically stable, no fever or chills. Tolerating regular diet, no complaints of shortness of breath, no chest pain, today's hemoglobin is 8.0. Renal profile is improving, electrolytes are within normal limits. No specific complaints, no acute events overnight. No complaints of abdominal pain. His is a relative remains on hold, patient is in A. fib with a controlled rate. He was seen by urology service and patient supposed to have a cystoscopy on an outpatient basis. Continues on his peritoneal dialysis exchanges, On 11/08/2019 patient seen in follow-up in the intensive care unit. He is awake and alert, in no acute distress, no complaints of shortness of breath, vital signs are stable, he is having his for peritoneal dialysis exchanges per day, no new labs today, no new chest x-rays, no fever or chills, cultures including urine and blood and peritoneal fluid so far are negative, remains on Zosyn for antibiotic coverage. Patient states his been up out of bed, walking in the ro , apparently tolerated to be fairly well, he is anticipated to be discharged home today. Objective - Vital Signs Vital signs: Vital Signs Temp 98.2 F 11/08/19 00:00 Pulse 85 11/08/19 00:00 Resp 16 11/08/19 00:00 BP 146/71 11/08/19 00:00 Pulse Ox 98 11/08/19 00:00 Intake & Output 11/07/19 11/08/19 11/08/19 18:59 06:59 18:59 Intake Total 100 Output Total 1300 1215 Balance -1300 -1115 Intake: IV 100 Sodium Chloride 0.9% 1, 0 000 ml @ 20 mls/hr IV . Q24H [facility] Rx#:[id number] zosyn 100 Output: Urine 1300 1215 Other: Voiding Method Indwelling Catheter Indwelling Catheter - Exam GENERAL EXAM: Alert, very pleasant, 74-year-old male comfortable in no apparent distress. HEAD: Normocephalic/atraumatic. EYES: Normal reaction of pupils, equal size. Conjunctiva pink, sclera white. NOSE: Clear with pink turbinates. THROAT: No erythema or exudates. NECK: No masses, no JVD, no thyroid enlargement, no adenopathy. CHEST: No chest wall deformity. Symmetrical expansion. LUNGS: Equal air entry with no crackles, wheeze, rhonchi or dullness. CVS: Irregular rate and rhythm, normal S1 and S2, no gallops, no murmurs, no rubs ABDOMEN: Soft, nontender, obese, peritoneal dialysis catheter is present. No hepatosplenomegaly, normal bowel sounds, no guarding or rigidity. EXTREMITIES: No clubbing, no edema, no cyanosis, 2+ pulses and upper and lower extremities. MUSCULOSKELETAL: Muscle strength and tone normal. SPINE: No scoliosis or deformity SKIN: No rashes CENTRAL NERVOUS SYSTEM: Alert and oriented -3. No focal deficits, tone is normal in all 4 extremities. PSYCHIATRIC: Alert and oriented -3. Appropriate affect. Intact judgment and insight. - Labs CBC & Chem 7: 11/07/19 04:48 11/07/19 04:54 Labs: Abnormal Lab Results - Last 24 Hours (Table) 11/06/19 11/07/19 11/07/19 Range/Units 04:41 11:48 16:51 POC Glucose (mg/dL) 145 H 236 H (75-99) mg/dL Iron 26 L (65-175) ug/dL % Saturation 8.18 L (15.00-50.00) 11/07/19 11/07/19 11/08/19 Range/Units 20:16 21:12 06:49 POC Glucose (mg/dL) 299 H 254 H 141 H (75-99) mg/dL Iron (65-175) ug/dL % Saturation (15.00-50.00) Microbiology - Last 24 Hours (Table) 11/04/19 11:35 Gram Stain - Preliminary Ascites Fluid Body Fluid Culture - Preliminary 11/04/19 09:32 Blood Culture - Preliminary Blood No Growth after 72 hours 11/04/19 09:21 Blood Culture - Preliminary Blood No Growth after 72 hours Assessment and Plan Plan: Assessment: #1. Abdominal distention and ascites significantly improved after 6 L of fluid via peritoneal catheter, cultures are negative #2. Chronic renal failure, end-stage renal disease, on peritoneal dialysis #3. Acute and chronic anemia related to gross hematuria, negative Hemoccult st ools, doubt GI bleeding, patient cystoscopy is planned #4. His hematuria possible cystitis #5. History of hypothyroidism #6. History of hypertension #7. History of insulin-dependent diabetes mellitus #8. History of anasarca, advanced liver disease, possible liver cirrhosis #9. History of nephrotic syndrome #10. History of diastolic congestive heart failure #11. History of dyslipidemia #12. History of benign prostatic hypertrophic #13. Chronic pain syndrome Plan: Patient is doing well, no new labs today, hemodynamically stable, no fever, no chills, continues on Zosyn for antibiotic coverage, so far all cultures including peritoneal urine and blood cultures are negative, hemodynamically stable, no acute issues overnight, no specific complaints, patient is anticipated to be discharged home today. I performed a history & physical examination of the patient and discussed their management with my nurse practitioner, Alayna Ortiz. I reviewed the nurse practitioner's note and agree with the documented findings and plan of care. Lung sounds are positive for clear breath sounds. The findings and the impression was discussed with the patient. I attest to the documentation by the nurse practitioner. Time with Patient: Less than 30
[2019-11-08 08:34] VITALS: BP 158/73; RESP 18
[2019-11-08 12:04] LABS: Glucose,Whole Blood 156 mg/dL (75-99)
--- NOTE | 2019-11-08 13:10 | P.DS ---
Providers Date of admission: 11/04/19 06:45 Expected date of discharge: 11/08/19 Attending physician: Andrade Walter Consults: 11/04/19 06:43 Consult Physician Routine Consulting Provider: Vesta Mabry Consult Reason/Comments: Anemia, questionable GI Bleed. Do you want consulting provider notified?: Yes 11/04/19 06:44 Consult Physician Routine Consulting Provider: Nhung Oropeza Consult Reason/Comments: Renal failure Do you want consulting provider notified?: Yes 11/04/19 09:04 Consult Physician Stat Consulting Provider: Alex Spaulding Consult Reason/Comments: icu management Do you want consulting provider notified?: Yes 11/04/19 09:11 Consult Physician Stat Consulting Provider: William Palmer Consult Reason/Comments: gross hematuria Do you want consulting provider notified?: Yes 11/04/19 11:17 Consult Physician Routine Consulting Provider: Bon Herzog Consult Reason/Comments: Troponin Do you want consulting provider notified?: Yes [facility] Course: 74-year-old male one of Dr. Vidales patient with end-stage renal disease on [place] dialysis done it through nephrology group at [place] related to [facility]. Patient is on of Dr. Vidales patient was known to have history of atherosclerotic heart disease, hypertension, hyperlipidemia, diastolic congestive heart failure, insulin-dependent diabetes and advance kidney disease who apparently had 3 hernia repair in July 2019 and had CAPD catheter placement at [facility] same time and had started on peritoneal dialysis over the last few weeks. Patient presented to demurs department today at [facility] complaining of worsening lower back pain along with abdominal pain and distention and gross hematuria with questionable of bright red blood per rectum. He was anemic with hemoglobin of 7.1 hemodynamically not stable at the time hypotensive and hypoxic was started on blood transfusion and admit patient initially to the floor but was overflow in the ICU patient become more instable had more hemorrhage and more bleeding specially hematuria mild hypoxia worsening shortness of breath with distended abdomen looks like he had over 4-5 L of CAPD fluid was never drained consult intensive care along with nephrology and urology his troponin was elevated we'll consult cardiology as well and for whatever we have reason patient has been on anticoagulation with severe coagulopathy until 2 weeks ago apparently was moving into one of the oral hypoglycemic agent most likely Eliquis, patient doesn't remember the dose which made the bleeding much worse he doesn't remember why he is on medication the first place but he does seen a outsole cementer machine at [facility] which he believes was on it for nonsustained A. fib. GI bleed kind of was excluded with negative Hemoccult and no blood coming out of the rectum. 11/05: The patient is seen and followed by multiple consultants. Dr. Herzog is following and obtaining workup done at [facility]. Patient's primary outsole cementer machine is Dr. Spain. He is added and Lopressor 25 mg twice daily and stopped fenofibrate with plan to continue statin only. Echocardiogram reveals EF of 60-65% with moderate concentric left ventricular hypertrophy, mild aortic valve sclerosis, trace mitral regurgitation, mild tricuspid regurgitation, mild pulmonary hypertension. Patient is followed by Dr. Spaulding for intensive care management. Patient is on broad-spectrum antibiotics for coverage of abdominal sepsis and cystitis. Patient is followed by general surgery Dr. Day. No plan for any surgical intervention. Dr. León has evaluated for gross hematuria. Patient's bladder to be irrigated periodically. He may need a larger diameter catheter if there is any significant clots present within the bladder. Cystoscopy will eventually need to be set up for further evaluation. Dr. Oropeza is following for end-stage renal disease on CAPD. Fluid was sent for evaluation. CAT scan of the abdomen to be ordered before resuming peritoneal dialysis. Patient was evaluated by Dr. Denton for severe anemia secondary to hematuria. Xarelto is on hold. CAT scan of the abdomen and pelvis with contrast completed yesterday reveals small amount of ascites not significant for patient on peritoneal dialysis. Well formed small to moderate size anterior left pelvic fluid collection. Suspect pseudocyst related. 2 nail dialysis. Other etiologies cannot be excluded. Abnormal bladder wall thickening may reflect product of underlying neurogenic bladder. Repeat chest x-ray reveals cardiomegaly. Improved aeration left lung base. Repeat lab work this morning reveals a hemoglobin of 7.1, potassium 5.3, BUN 71 creatinine 5.60. Blood sugars running between 107 and 145. Patient is status post 2 units of packed RBCs. Paracentesis has been canceled as fluid was able to be drawn off peritoneal dialysis catheter. Patient was resumed on CAPD yesterday. Mota catheter draining bloody urine, no clots noted. Xarelto has been on hold. This is in place because of atrial fibrillation. Patient started on Lasix 80 mg twice daily and DDAVP has been ordered. Patient has been taken off insulin drip and we will start lower dose of 7030 insulin along with NovoLog scale. 11/06: Patient remains in intensive care unit waiting a bed. He has been downgraded to [facility] without telemetry. Patient is not eating very much as he does not like the food here. He most likely does not like the Diovan. Blood sugars are running between 122 and 253. He will be continued on the same dosing of the NovoLog mix 7030. He did receive 1 additional dose at 1 AM of NovoLog. The patient has been continued on CAPD. Blood pressure has been elevated and patient will be started on oral hydralazine. 11/07: Patient remains in the intensive care unit waiting for [facility] bed. Yesterday blood sugars were low at 67 and nighttime insulin was held. We have decreased morning and night NovoLog mix 7030. Patient ate a decent breakfast this morning but overall has been eating very little as he states he does not like the food. Repeat blood work reveals hemoglobin of 8.0 and he is status post total of 3 units of packed RBCs. Electrolytes normal, BUN 15 creatinine 4.13. Mota catheter remains in place and hematuria has resolved. Patient has been afebrile, heart rate 82, blood pressure 154/67, pulse ox 98% on room air. 11/08: Patient remains in the intensive care unit waiting for [facility] bed. Mota catheter was removed yesterday and he is urinating on his own. He is continued on CAPD. He has been afebrile, heart rate 85, blood pressure 115/73, pulse ox 100% on room air. The patient has been out for nursing. PT is in place. manager contact has evaluated and patient family did not require home care. Patient will be discharged home today in stable condition. Discharge diagnoses: 1. Acute blood loss anemia secondary to gross hematuria, status post transfusion of 3 units of packed RBCs. 2. Gross hematuria of unclear etiology. UTI ruled out. 3. Rectal bleed with no sign of bleeding-- ruled out. 4. End-stage renal disease on CAPD with retention of the PD fluid. 5. Atherosclerotic heart disease. 6. Paroxysmal atrial fibrillation. 7. Diabetes mellitus type 2, insulin requiring, uncontrolled with hypoglycemia. 8. Hyperlipidemia 9. Hypothyroidism 10. BPH. 11. Hypertension. 12. Metabolic encephalopathy related to the bleeding, anemia, end-stage renal disease and retention of PD fluid. 13. Hyperkalemia secondary to end-stage renal disease. 14. Mild troponin elevation secondary to chronic kidney disease. 15. History of alcoholic cardiomyopathy and chronic diastolic heart failure. 16. History of alcohol abuse and advanced liver disease. 17. Acute hypoxic respiratory failure, resolved. Discharge plan: home Impression and plan of care have been directed as dictated by the signing physician. Carmina Collins nurse practitioner acting as scribe for signing physician. Patient Condition at Discharge: Good Plan - Discharge Summary New Discharge Prescriptions: New hydrALAZINE HCL [Apresoline] 25 mg PO TID #90 tab Furosemide [Lasix] 80 mg PO BID@0900,1600 #60 tab Metoprolol Tartrate [Lopressor] 25 mg PO BID #60 tab Continue Tamsulosin HCl [Flomax] 0.4 mg PO DAILY Fenofibrate Nanocrystallized [Tricor] 145 mg PO DAILY Atorvastatin [Lipitor] 40 mg PO HS Lansoprazole 30 mg PO DAILY oxyCODONE HCL [Roxicodone] 5 mg PO Q4H PRN PRN Reason: Pain Polyethylene Glycol 3350 [Miralax] 17 gm PO DAILY Cholecalciferol [Vitamin D3 (25 Mcg = 1000 Iu)] 1,000 unit PO DAILY Levothyroxine Sodium [Synthroid] 150 mcg PO DAILY Folic Acid 0.4 mg PO DAILY Darbepoetin Fausto [Aranesp] 60 mcg IJ WE Calcitriol [Rocaltrol] 0.25 mcg PO DIRECTED amLODIPine [Norvasc] 10 mg PO DAILY Acetaminophen Tab [Tylenol] 650 mg PO Q6H PRN PRN Reason: Pain Changed Insuln Asp Prt/Insulin Aspart [NovoLOG MIX 70-30 VIAL] 24 units SQ AC-BRKFST #0 Insuln Asp Prt/Insulin Aspart [NovoLOG MIX 70-30 VIAL] 12 unit SQ AC-SUPPER #0 Discontinued Carvedilol [Coreg] 3.125 mg PO BID Bumetanide [BUMEX] 2 mg PO DAILY Bumetanide [BUMEX] 1 mg PO HS Rivaroxaban [Xarelto] 20 mg PO DAILY Discharge Medication List Atorvastatin [Lipitor] 40 mg PO HS 11/13/16 [History] Fenofibrate Nanocrystallized [Tricor] 145 mg PO DAILY 11/13/16 [History] Tamsulosin HCl [Flomax] 0.4 mg PO DAILY 11/13/16 [History] Lansoprazole 30 mg PO DAILY 06/09/18 [History] Acetaminophen Tab [Tylenol] 650 mg PO Q6H PRN 11/04/19 [History] Calcitriol [Rocaltrol] 0.25 mcg PO DIRECTED 11/04/19 [History] Cholecalciferol [Vitamin D3 (25 Mcg = 1000 Iu)] 1,000 unit PO DAILY 11/04/19 [History] Darbepoetin Fausto [Aranesp] 60 mcg IJ WE 11/04/19 [History] Folic Acid 0.4 mg PO DAILY 11/04/19 [History] Levothyroxine Sodium [Synthroid] 150 mcg PO DAILY 11/04/19 [History] Polyethylene Glycol 3350 [Miralax] 17 gm PO DAILY 11/04/19 [History] amLODIPine [Norvasc] 10 mg PO DAILY 11/04/19 [History] oxyCODONE HCL [Roxicodone] 5 mg PO Q4H PRN 11/04/19 [History] Furosemide [Lasix] 80 mg PO BID@0900,1600 #60 tab 11/08/19 [Rx] Insuln Asp Prt/Insulin Aspart [NovoLOG MIX 70-30 VIAL] 12 unit SQ AC-SUPPER #0 11/08/19 [Rx] Insuln Asp Prt/Insulin Aspart [NovoLOG MIX 70-30 VIAL] 24 units SQ AC-BRKFST #0 11/08/19 [Rx] Metoprolol Tartrate [Lopressor] 25 mg PO BID #60 tab 11/08/19 [Rx] hydrALAZINE HCL [Apresoline] 25 mg PO TID #90 tab 11/08/19 [Rx] Follow up Appointment(s)/Referral(s): Nhung Oropeza MD [STAFF PHYSICIAN] - 1 Week Zen Lao MD [STAFF PHYSICIAN] - 1 Week Harris Vidales DO [Primary Care Provider] - 1 Week Discharge Disposition: HOME SELF-CARE
--- NOTE | 2019-11-08 19:29 | PN ---
PROGRESS NOTE The patient is seen for followup for end-stage renal disease, currently maintained on peritoneal dialysis, doing well. No significant complaints today. PHYSICAL EXAMINATION: This morning blood pressure 158/73, heart rate 85 per minute, patient is afebrile. Examination of the heart S1, S2. Examination of the lungs, bilateral breath sounds are heard. ABDOMEN: Soft, nontender. Examination of lower extremities shows no significant edema. MEDICAID COLLECTION SPECIALIST exam grossly intact. LABS: From yesterday show potassium 4.4, creatinine 4.1, hemoglobin 8.0 g/dL. ASSESSMENT: 1. End-stage renal disease, on peritoneal dialysis continue current PD exchanges. Patient should follow up as outpatient with his primary pelt dropper and [facility]. 2. Hypertension, volume sensitive now improved. 3. Anemia from significant hematuria, status post packed RBCs transfusion. Maintained on Aranesp as well. No GI bleed noted. 4. Paroxysmal atrial fibrillation. Anticoagulation currently on hold. Rate is controlled. 5. Hyperkalemia on initial admission currently resolved. PLAN: Okay for discharge. Follow up with Nephrology as outpatient. MMODL / IJN: [id number] /
== END 2019-11-08 16:39 | disposition home or self-care (01) | DRG 811 ==
LOC: EC 02:17 → 2SICU 06:45
PROVIDERS: ADMIT Internal Medicine Geriatric Medicine; ATTEND Internal Medicine Geriatric Medicine
PROC: 30233N1 Transfusion of Nonautologous Red Blood Cells into Peripheral Vein, Percutaneous Approach (ICD-10-PCS; principal; 2019-11-04)
PROC: 3E1M39Z Irrigation of Peritoneal Cavity using Dialysate, Percutaneous Approach (ICD-10-PCS; 2019-11-04)
DX: D62 Acute posthemorrhagic anemia (principal); G93.41 Metabolic encephalopathy; J96.01 Acute respiratory failure with hypoxia; N18.6 End stage renal disease; I13.2 Hypertensive heart and chronic kidney disease with heart failure and with stage 5 chronic kidney disease, or end stage renal disease; I31.3 Pericardial effusion (noninflammatory); I42.6 Alcoholic cardiomyopathy; I50.32 Chronic diastolic (congestive) heart failure; J98.11 Atelectasis; R18.8 Other ascites; T85.691A Other mechanical complication of intraperitoneal dialysis catheter, initial encounter; R31.9 Hematuria, unspecified; I95.9 Hypotension, unspecified; E87.5 Hyperkalemia; I48.0 Paroxysmal atrial fibrillation; E11.22 Type 2 diabetes mellitus with diabetic chronic kidney disease; I27.20 Pulmonary hypertension, unspecified; I08.3 Combined rheumatic disorders of mitral, aortic and tricuspid valves; K74.60 Unspecified cirrhosis of liver; F03.90 Unspecified dementia, unspecified severity, without behavioral disturbance, psychotic disturbance, mood disturbance, and anxiety; E83.89 Other disorders of mineral metabolism; G89.4 Chronic pain syndrome; I25.10 Atherosclerotic heart disease of native coronary artery without angina pectoris; N40.1 Benign prostatic hyperplasia with lower urinary tract symptoms; R33.8 Other retention of urine; E03.9 Hypothyroidism, unspecified; E78.5 Hyperlipidemia, unspecified; R79.89 Other specified abnormal findings of blood chemistry; E66.3 Overweight; Z68.33 Body mass index [BMI] 33.0-33.9, adult; Z79.01 Long term (current) use of anticoagulants; Z79.4 Long term (current) use of insulin; Z79.890 Hormone replacement therapy; Z79.899 Other long term (current) drug therapy; Z87.440 Personal history of urinary (tract) infections; Z87.441 Personal history of nephrotic syndrome; Z87.891 Personal history of nicotine dependence; Z99.2 Dependence on renal dialysis
CPT/HCPCS: 36415; 36430; 36600; 71045; 71250; 74177; 76770; 80048; 80053; 81001; 82150; 82272; 82728; 82805; 82945; 83540; 83550; 83605; 83615; 83690; 83880; 84100; 84157; 84484; 85025; 85027; 85610; 85730; 86850; 86900; 86901; 86920; 87040; 87070; 87075; 87086; 87102; 87205; 89050; 93005; 93306; 96374; 96375; 96376; 99285

== ENCOUNTER 2019-11-12 22:10 | Observation (INO) | payer MEDICARE ==
[2019-11-12 22:19] LABS: Glucose,Whole Blood 244 mg/dL (75-99)
[2019-11-12] MEDS ORDERED: MORPHINE SULFATE 4 MG/ML SYRINGE IM STA (22:46)
[2019-11-12] MEDS ORDERED: MORPHINE SULFATE 4 MG/ML SYRINGE IVP STA (23:08)
[2019-11-12 23:21] LABS: Basophils # (A) 0.1 k/uL (0-0.2); Basophils % (A) 2 %; Eosinophils # (A) 0.5 k/uL (0-0.7); Eosinophils % (A) 8 %; HCT 34.8 % (39.0-53.0); Lymphocytes # (A) 1.2 k/uL (1.0-4.8); Lymphocytes % (A) 18 %; MCH 31.7 pg (25.0-35.0); MCHC 33.4 g/dL (31.0-37.0); MCV 95.1 fL (80.0-100.0); Mean Platelet Volume 9.1; Monocytes # (A) 0.6 k/uL (0-1.0); Monocytes % (A) 9 %; Neutrophils # (A) 4.2 k/uL (1.3-7.7); Neutrophils % (A) 61 %; Platelet Count 416 k/uL (150-450); RBC 3.66 m/uL (4.30-5.90); RDW 15.7 % (11.5-15.5); WBC 6.8 k/uL (3.8-10.6)
[2019-11-12 23:26] LABS: HGB 11.6 gm/dL (13.0-17.5)
--- NOTE | 2019-11-12 23:29 | XR ---
EXAMINATION TYPE: XR chest 2V DATE OF EXAM: 11/12/2019 COMPARISON: 11/05/2019 HISTORY: Short of breath TECHNIQUE: 2 views FINDINGS: Heart and mediastinum are normal. Lungs are clear. Diaphragm is normal. Bony thorax appears normal. There are chest leads. IMPRESSION: No active cardiopulmonary disease. No change.
[2019-11-12 23:34] LABS: Partial Thromboplastin Time 23.7 sec (22.0-30.0); Prothrombin Time 10.3 sec (9.0-12.0)
[2019-11-12 23:40] LABS: D-Dimer 0.86 mg/L FEU (<0.60)
[2019-11-12 23:44] LABS: Albumin 4.8 g/dL (3.5-5.0); Calcium 10.3 mg/dL (8.4-10.2); Magnesium 2.1 mg/dL (1.6-2.3); Phosphorus 4.9 mg/dL (2.5-4.5); Total Bilirubin 0.7 mg/dL (0.2-1.3); Total Protein 8.5 g/dL (6.3-8.2)
[2019-11-12 23:58] LABS: Potassium 4.6 mmol/L (3.5-5.1)
--- NOTE | 2019-11-13 00:30 | ED ---
SOB HPI - General Chief Complaint: Shortness of Breath Stated Complaint: Diff Breathing Time Seen by Provider: 11/12/19 22:10 Source: EMS Mode of arrival: EMS Limitations: no limitations - History of Present Illness Initial Comments: The patient is a 74-year-old male with past medical history of end-stage renal disease on peritoneal dialysis, hyperlipidemia and hypertension who presents to the emergency room with reported shortness of breath. Patient had sudden onset of shortness of breath approximately 30 minutes prior to arrival. He denies any chest pain. No cough or hemoptysis. No fevers or chills. He does have a history of peritoneal dialysis for which she completes nightly. Patient infused 3 L of fluid and stated that he was able to take off 1.5 L. He also has some mild abdominal cramping near the site of his dialysis catheter. Also is having bilateral lower extremity muscle cramping. He denies any dysuria. Patient was recently hospitalist for hematuria. He was taken off his blood thinner at that time. States that he did have one episode of urination today which did have some blood in it. He denies diarrhea, constipation, melanotic stools or hematochezia. He did not take any medications at home for his lower extremity pain. EMS was called and the patient did have tachypnea however oxygen saturations were 96%. They attempted IV however could not establish one. No additional medications were provided previous to arrival. He denies ripping or tearing sensation to his back. No back or flank pain. No lower extremity numbness or tingling. No history of DVT or PE. There are no other alleviating, precipitating or modifying factors - Related Data Home Medications Medication Instructions Recorded Confirmed Atorvastatin [Lipitor] 40 mg PO HS 11/13/16 11/13/19 Fenofibrate Nanocrystallized 145 mg PO DAILY 11/13/16 11/13/19 [Tricor] Tamsulosin HCl [Flomax] 0.4 mg PO DAILY 11/13/16 11/13/19 Lansoprazole 30 mg PO DAILY 06/09/18 11/13/19 Acetaminophen Tab [Tylenol] 650 mg PO Q6H PRN 11/04/19 11/13/19 Calcitriol [Rocaltrol] 0.25 mcg PO DIRECTED 11/04/19 11/13/19 Cholecalciferol [Vitamin D3 (25 1,000 unit PO DAILY 11/04/19 11/13/19 Mcg = 1000 Iu)] Darbepoetin Fausto [Aranesp] 60 mcg IJ WE 11/04/19 11/13/19 Folic Acid 0.4 mg PO DAILY 11/04/19 11/13/19 Levothyroxine Sodium [Synthroid] 150 mcg PO DAILY 11/04/19 11/13/19 Polyethylene Glycol 3350 [Miralax] 17 gm PO DAILY 11/04/19 11/13/19 amLODIPine [Norvasc] 10 mg PO DAILY 11/04/19 11/13/19 oxyCODONE HCL [Roxicodone] 5 mg PO Q4H PRN 11/04/19 11/13/19 Insuln Asp Prt/Insulin Aspart 16 unit SQ AC-SUPPER 11/13/19 11/13/19 [NovoLOG MIX 70-30 VIAL] Insuln Asp Prt/Insulin Aspart 30 unit SQ AC-BRKFST 11/13/19 11/13/19 [NovoLOG MIX 70-30 VIAL] Previous Rx's Medication Instructions Recorded Furosemide [Lasix] 80 mg PO BID@0900,1600 #60 tab 11/08/19 Metoprolol Tartrate [Lopressor] 25 mg PO BID #60 tab 11/08/19 hydrALAZINE HCL [Apresoline] 25 mg PO TID #90 tab 11/08/19 Allergies Allergy/AdvReac Type Severity Reaction Status Date / Time No Known Allergies Allergy Verified 11/13/19 07:35 Review of Systems ROS Statement: Those systems with pertinent positive or pertinent negative responses have been documented in the HPI. ROS Other: All systems not noted in ROS Statement are negative. Past Medical History Past Medical History: Dialysis, Hyperlipidemia, Hypertension, Renal Disease, Thyroid Disorder History of Any Multi-Drug Resistant Organisms: None Reported Past Surgical History: No Surgical Hx Reported Additional Past Surgical History / Comment(s): placement of peritoneal dialysis catheter and repair of umbilical hernia 07/2017, colonoscopy with polypectomy in the distant past. Past Anesthesia/Blood Transfusion Reactions: No Reported Reaction Past Psychological History: No Psychological Hx Reported Smoking Status: Former smoker Past Alcohol Use History: None Reported Past Drug Use History: None Reported - Past Family History Father Family Medical History: Myocardial Infarction ([place]) ( at 45) Additional Family Medical History / Comment(s): patient has 3 brothers and one sister is relatively healthy has chronic back problems patient has 5 children that are healthy with no kidney diabetes or coronary artery disease. Mother Family Medical History: Coronary Artery Disease (CAD), Diabetes Mellitus ( at 67) General Exam Limitations: no limitations General appearance: alert, in no apparent distress Head exam: Present: atraumatic, normocephalic, normal inspection Eye exam: Present: normal appearance, PERRL, EOMI. Absent: scleral icterus, conjunctival injection, periorbital swelling ENT exam: Present: normal exam, mucous membranes moist Neck exam: Present: normal inspection. Absent: tenderness, meningismus, lymphadenopathy Respiratory exam: Present: normal lung sounds bilaterally. Absent: respiratory distress, wheezes, rales, rhonchi, stridor Cardiovascular Exam: Present: regular rate, normal rhythm, normal heart sounds. Absent: systolic murmur, diastolic murmur, rubs, gallop, clicks GI/Abdominal exam: Present: soft, tenderness (left of peritoneal catheter), normal bowel sounds. Absent: distended, guarding, rebound, rigid Extremities exam: Present: normal inspection, full ROM, normal capillary refill. Absent: tenderness, pedal edema, joint swelling, calf tenderness Back exam: Present: normal inspection Neurological exam: Present: alert, oriented X3, CN II-XII intact Psychiatric exam: Present: normal affect, normal mood Skin exam: Present: warm, dry, intact, normal color. Absent: rash Course Vital Signs 11/12/19 11/12/19 11/12/19 22:12 23:13 23:27 Temperature 98.5 F Pulse Rate 86 80 77 Respiratory 26 H 22 24 Rate Blood Pressure 131/83 138/63 138/63 O2 Sat by Pulse 96 93 L 100 Oximetry 11/13/19 11/13/19 00:29 01:37 Temperature 97.5 F L 98.4 F Pulse Rate 81 81 Respiratory 22 21 Rate Blood Pressure 158/79 131/84 O2 Sat by Pulse 100 100 Oximetry Medical Decision Making - Medical Decision Making Upon arrival the patient was placed into room 4. He is hooked up to continuous pulse ox and cardiac monitoring. A 12-lead EKG is performed which demonstrates no acute changes. The patient is given 4 mg of morphine for pain control. I did recommend laboratory studies. Patient's hemoglobin is 11.6 from a previous value of 8. D-dimer is elevated at 0.86. This was ordered because of the patient's acute shortness of breath and is no longer on blood thinners. Creatinine is 8.3. Glucose 244. Calcium 10.3. Troponin 0.077. BNP 1800. Chest x-ray was performed which demonstrates no active cardiopulmonary disease. Because the patient's elevated d-dimer he is sent over for a chest CTA. I do order a CT of the abdomen and pelvis because the patient's reported abdominal pain as well. CTA demonstrate no evidence of pulmonary embolism. Clearing of the pleural effusions that were previously seen. CT of the patient's abdomen and pelvis demonstrates peritoneal dialysis fluid in the abdomen. Urinary bladder wall thickening consistent with nonspecific cystitis which is unchanged. Significant clearing of the pleural effusions. Anterior abdominal wall fluid collection unchanged. I discussed results with the patient. His lower extremity cramping has improved. He does appear resting much more comfortably in the exam room. They recommend hospital admission for evaluation by nephrology. The patient needs to have adequate dialysis because of his contrast that he received. I will also order lower extremity Dopplers to rule out DVT. Cramping may be due to dialysis. The patient may require extra instruction because of the inability to complete dialysis on multiple occasions. Family is at bedside and is updated upon multiple occasions. They are in agreement with the treatment plan. Bridging orders were placed. I call discuss case with Dr. Jackman who agreed to the current plan. The patient remained in stable condition and was transported to the floor - Lab Data Result diagrams: 11/12/19 23:03 11/12/19 23:03 Lab Results 11/12/19 11/12/19 11/12/19 Range/Units 22:18 23:03 23:03 WBC 6.8 (3.8-10.6) k/uL RBC 3.66 L (4.30-5.90) m/uL Hgb 11.6 L D (13.0-17.5) gm/dL Hct 34.8 L (39.0-53.0) % MCV 95.1 (80.0-100.0) fL MCH 31.7 (25.0-35.0) pg MCHC 33.4 (31.0-37.0) g/dL RDW 15.7 H (11.5-15.5) % Plt Count 416 (150-450) k/uL Neutrophils % 61 % Lymphocytes % 18 % Monocytes % 9 % Eosinophils % 8 % Basophils % 2 % Neutrophils # 4.2 (1.3-7.7) k/uL Lymphocytes # 1.2 (1.0-4.8) k/uL Monocytes # 0.6 (0-1.0) k/uL Eosinophils # 0.5 (0-0.7) k/uL Basophils # 0.1 (0-0.2) k/uL PT (9.0-12.0) sec INR (<1.2) APTT (22.0-30.0) sec D-Dimer (<0.60) mg/L FEU Sodium 140 (137-145) mmol/L Potassium 4.6 (3.5-5.1) mmol/L Chloride 95 L (98-107) mmol/L Carbon Dioxide 29 (22-30) mmol/L Anion Gap 16 mmol/L BUN 41 H (9-20) mg/dL Creatinine 8.31 H* (0.66-1.25) mg/dL Est GFR (CKD-EPI)AfAm 7 (>60 ml/min/1.73 sqM) Est GFR (CKD-EPI)NonAf 6 (>60 ml/min/1.73 sqM) Glucose 156 H (74-99) mg/dL POC Glucose (mg/dL) 244 H (75-99) mg/dL POC Glu Senior Systems Administrator ID Hickman, Debra Calcium 10.3 H (8.4-10.2) mg/dL Phosphorus 4.9 H (2.5-4.5) mg/dL Magnesium 2.1 (1.6-2.3) mg/dL Total Bilirubin 0.7 (0.2-1.3) mg/dL AST 21 (17-59) U/L ALT 23 (4-49) U/L Alkaline Phosphatase 76 (38-126) U/L Troponin I (0.000-0.034) ng/mL NT-Pro-B Natriuret Pep pg/mL Total Protein 8.5 H (6.3-8.2) g/dL Albumin 4.8 (3.5-5.0) g/dL 11/12/19 11/12/19 11/12/19 Range/Units 23:03 23:03 23:03 WBC (3.8-10.6) k/uL RBC (4.30-5.90) m/uL Hgb (13.0-17.5) gm/dL Hct (39.0-53.0) % MCV (80.0-100.0) fL MCH (25.0-35.0) pg MCHC (31.0-37.0) g/dL RDW (11.5-15.5) % Plt Count (150-450) k/uL Neutrophils % % Lymphocytes % % Monocytes % % Eosinophils % % Basophils % % Neutrophils # (1.3-7.7) k/uL Lymphocytes # (1.0-4.8) k/uL Monocytes # (0-1.0) k/uL Eosinophils # (0-0.7) k/uL Basophils # (0-0.2) k/uL PT 10.3 (9.0-12.0) sec INR 1.0 (<1.2) APTT 23.7 (22.0-30.0) sec D-Dimer 0.86 H (<0.60) mg/L FEU Sodium (137-145) mmol/L Potassium (3.5-5.1) mmol/L Chloride (98-107) mmol/L Carbon Dioxide (22-30) mmol/L Anion Gap mmol/L BUN (9-20) mg/dL Creatinine (0.66-1.25) mg/dL Est GFR (CKD-EPI)AfAm (>60 ml/min/1.73 sqM) Est GFR (CKD-EPI)NonAf (>60 ml/min/1.73 sqM) Glucose (74-99) mg/dL POC Glucose (mg/dL) (75-99) mg/dL POC Glu Senior Systems Administrator ID Calcium (8.4-10.2) mg/dL Phosphorus (2.5-4.5) mg/dL Magnesium (1.6-2.3) mg/dL Total Bilirubin (0.2-1.3) mg/dL AST (17-59) U/L ALT (4-49) U/L Alkaline Phosphatase (38-126) U/L Troponin I 0.077 H* (0.000-0.034) ng/mL NT-Pro-B Natriuret Pep 1800 pg/mL Total Protein (6.3-8.2) g/dL Albumin (3.5-5.0) g/dL - EKG Data EKG Comments: EKG demonstrates a sinus rhythm with a first-degree AV block.. Ventricular rate of 82. SC interval 242. QRS 90. QTC of 514. No acute ST segment elevations or depressions concerning for ischemic changes. Inverted T-wave in lead aVL.EKG is compared to previous and is similar in morphology Disposition Clinical Impression: Elevated troponin, Peritoneal dialysis catheter mechanical complication, Abdominal pain, generalized, Cramp in lower leg, Shortness of breath Disposition: ADMITTED IP TO THIS HOSP Condition: Serious Is patient prescribed a controlled substance at d/c from ED?: No Decision to Admit Reason: Admit from EC Decision Date: 11/13/19 Decision Time: 00:32
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
--- NOTE | 2019-11-13 00:56 | CT ---
EXAMINATION TYPE: CT chest angio for PE DATE OF EXAM: 11/13/2019 COMPARISON: None HISTORY: Chest pain, R/O PE CT DLP: 641.10 mGycm Automated exposure control for dose reduction was used. CONTRAST: Performed with IV Contrast, patient injected with 80 mL of Isovue 370. There are 3-D post processed images. There is no mediastinal adenopathy. Thoracic aorta is intact. There is no aneurysm or dissection. The re are no hilar masses. There is normal contrast opacification of the pulmonary arteries. I see no fi lling defect. There is possible small pericardial effusion. There is no pleural fluid. The lungs are clear of consolidation. There is no evidence of a pulmonary mass. There is peritoneal dialysis fluid in the abdomen. I see no bony destructive process. IMPRESSION: No evidence of pulmonary embolism. There is clearing of the pleural effusions compared to 11/04/2019.
[2019-11-13] MEDS ORDERED: MORPHINE SULFATE 4 MG/ML SYRINGE IV PRN (01:20)
[2019-11-13] MEDS ORDERED: NALOXONE 0.4 MG/ML 1 ML VIAL IV PRN (01:20)
[2019-11-13] MEDS ORDERED: DIALYSIS (PERIT 1.5%) 2,500 ML 37.5 G/2,500 ML BAG INTRAPERIT SCH (06:00)
[2019-11-13] MEDS ORDERED: LEVOTHYROXINE 75 MCG TAB PO SCH (06:30)
[2019-11-13 06:52] LABS: Glucose,Whole Blood 173 mg/dL (75-99)
[2019-11-13] MEDS ORDERED: INSULN ASP PRT/INSULIN ASPART 100 UNIT/ML 10 ML VIAL SQ SCH ×2 (07:30→17:30)
[2019-11-13] MEDS: hydrALAZINE HCL 25 MG TAB PO SCH ×2 (07:52→16:21)
--- NOTE | 2019-11-13 08:03 | US ---
EXAMINATION TYPE: US venous doppler duplex LE DATE OF EXAM: 11/13/2019 7:53 AM COMPARISON: US CLINICAL HISTORY: lower extremity cramping. Pt states leg pain SIDE PERFORMED: Bilateral TECHNIQUE: The lower extremity deep venous system is examined utilizing real time linear array sonog lc with graded compression, doppler sonography and color-flow sonography. VESSELS IMAGED: External Iliac Vein (EIV) Common Femoral Vein Deep Femoral Vein Greater Saphenous Vein * Femoral Vein Popliteal Vein Small Saphenous Vein * Proximal Calf Veins (* superficial vessels) No popliteal fossa lesion is seen. Right Leg: Negative for DVT Left Leg: Negative for DVT IMPRESSION: THIS EXAMINATION IS NEGATIVE FOR DVT IN BOTH LEGS.
--- NOTE | 2019-11-13 08:04 | P.HPIM ---
History of Present Illness H&P Date: 11/13/19 (H&P and discharge summary) Chief Complaint: shortness of breath this is a 74-year-old male who presented to the emergency room with a sudden onset of shortness of breath. At the time patient denied any chest pain, cough or hemoptysis. Patient has a history of peritoneal dialysis which is completed nightly. Patient of use 3 L of fluid was only able to take of 1.5 L. Patient was experiencing mild abdominal cramping at the site at the dialysis catheter. He also has bilateral lower extremity muscle cramping. Patient was recently hospitalized for hematuria at that time he was taken off his blood thinner. Patient states that he had one episode of hematuria yesterday. Patient has no histories of DVT or PE. Patient has significant medical history of end-stage renal failure on peritoneal dialysis, hyperlipidemia, hypertension, BPH, coronary artery disease, type 2 diabetes on insulin, and hypothyroidism. Asians d-dimer was slightly elevated CTA was performed. impression no evidence of pulmonary embolism. There is clearing of pleural effusion compared to 04/2019. CT of abdomen and pelvis with contrast impression peritoneal dialysis fluid in abdomen, urinary bladder wall thickening consistent with nonspecific cystitis unchanged. Decreased renal function. Significant clearing of pleural effusion compared to last exam. Anterior abdominal wall fluid collection unchanged. patient is found to be resting in bed without any complaints of muscle cramping or difficulty breathing. Patient states that he and diffuse 3 L of fluid but felt that he was losing too much weight so kept 1.5L the fluid in. Patient states that he began to have muscle cramping which woke him up and then noticed difficulty breathing. patient is scheduled to see Dr. Oropeza on Thursday. He has a nurse coming in to help with his dialysis on Thursday and Thursday. Review of Systems Review Of Systems: Constitutional: No fever, no chills, no night sweats. reports weight loss. No weakness, fatigue or lethargy. No daytime sleepiness. EENT: No headache. No blurred vision or double vision, no loss of vision. No loss of Hearing, no ringing in the ears, no dizziness. No nasal drainage or congestion. No epistaxis. No sore throat. Lungs: report shortness of breath resolved, nocough, no sputum production. No wheezing. Cardiovascular: No chest pain, no lower extremity edema. No palpitations. No paroxysmal nocturnal dyspnea. No orthopnea. No lightheadedness or dizziness. No syncopal episodes. Abdominal: no abdominal discomfort. No nausea, vomiting. no diarrhea. No constipation. No bloody or tarry stools. no loss of appetite. Genitourinary: No dysuria, increased frequency, urgency. No urinary retention. Musculoskeletal: reports muscle cramping. No myalgias. No muscle weakness, no gait dysfunction, no frequent falls. No back pain. No neck pain. Integumentary: No wounds, no lesions. No rash or pruritus. No unusual bruising. No change in hair or nails. Neurologic: No aphasia. No facial droop. No change in mentation. No head injury. No headache. No paralysis. No paresthesia. Psychiatric: No depression. No anxiety. No mood swings. Endocrine: No abnormal blood sugars. No weight change. No excessive sweating or thirst. Past Medical History Past Medical History: Dialysis, Hyperlipidemia, Hypertension, Renal Disease, Thyroid Disorder History of Any Multi-Drug Resistant Organisms: None Reported Past Surgical History: No Surgical Hx Reported Additional Past Surgical History / Comment(s): placement of peritoneal dialysis catheter and repair of umbilical hernia 07/2017, colonoscopy with polypectomy in the distant past. Past Anesthesia/Blood Transfusion Reactions: No Reported Reaction Past Psychological History: No Psychological Hx Reported Smoking Status: Former smoker Past Alcohol Use History: None Reported Additional Past Alcohol Use History / Comment(s): patient states he used to be a heavy drinker but quit 2 years ago Past Drug Use History: None Reported - Past Family History Father Family Medical History: Myocardial Infarction ([place]) ( at 45) Additional Family Medical History / Comment(s): patient has 3 brothers and one sister is relatively healthy has chronic back problems patient has 5 children that are healthy with no kidney diabetes or coronary artery disease. Mother Family Medical History: Coronary Artery Disease (CAD), Diabetes Mellitus ( at 67) Medications and Allergies Home Medications Medication Instructions Recorded Confirmed Type Atorvastatin [Lipitor] 40 mg PO HS 11/13/16 11/13/19 History Fenofibrate Nanocrystallized 145 mg PO DAILY 11/13/16 11/13/19 History [Tricor] Tamsulosin HCl [Flomax] 0.4 mg PO DAILY 11/13/16 11/13/19 History Lansoprazole 30 mg PO DAILY 06/09/18 11/13/19 History Acetaminophen Tab [Tylenol] 650 mg PO Q6H PRN 11/04/19 11/13/19 History Calcitriol [Rocaltrol] 0.25 mcg PO DIRECTED 11/04/19 11/13/19 History Cholecalciferol [Vitamin D3 (25 1,000 unit PO DAILY 11/04/19 11/13/19 History Mcg = 1000 Iu)] Darbepoetin Fausto [Aranesp] 60 mcg IJ WE 11/04/19 11/13/19 History Folic Acid 0.4 mg PO DAILY 11/04/19 11/13/19 History Levothyroxine Sodium [Synthroid] 150 mcg PO DAILY 11/04/19 11/13/19 History Polyethylene Glycol 3350 [Miralax] 17 gm PO DAILY 11/04/19 11/13/19 History amLODIPine [Norvasc] 10 mg PO DAILY 11/04/19 11/13/19 History oxyCODONE HCL [Roxicodone] 5 mg PO Q4H PRN 11/04/19 11/13/19 History Furosemide [Lasix] 80 mg PO BID@0900,1600 #60 tab 11/08/19 11/13/19 Rx Metoprolol Tartrate [Lopressor] 25 mg PO BID #60 tab 11/08/19 11/13/19 Rx hydrALAZINE HCL [Apresoline] 25 mg PO TID #90 tab 11/08/19 11/13/19 Rx Insuln Asp Prt/Insulin Aspart 16 unit SQ AC-SUPPER 11/13/19 11/13/19 History [NovoLOG MIX 70-30 VIAL] Insuln Asp Prt/Insulin Aspart 30 unit SQ AC-BRKFST 11/13/19 11/13/19 History [NovoLOG MIX 70-30 VIAL] Allergies Allergy/AdvReac Type Severity Reaction Status Date / Time No Known Allergies Allergy Verified 11/13/19 07:35 Physical Exam Vitals: Vital Signs Temp Pulse Pulse Resp BP BP Pulse Ox 11/13/19 02:38 98.0 F 87 18 162/57 100 11/13/19 01:37 98.4 F 81 21 131/84 100 11/13/19 00:29 97.5 F L 81 22 158/79 100 11/12/19 23:27 77 24 138/63 100 11/12/19 23:13 80 22 138/63 93 L 11/12/19 22:12 98.5 F 86 26 H 131/83 96 Intake and Output 11/12/19 11/13/19 11/13/19 22:59 06:59 14:59 Intake Total 540 Balance 540 Intake: Oral 540 Other: Weight 107.955 kg 107.955 kg General Appearance: Alert, cooperative, no distress, appears stated age. Neck HEENT: Supple, no lymphadenopathy, no thyroid enlargement, no carotid bruits. Lungs: Clear to auscultation without crackles or wheezes no rhonchi, no deformity. Chest Wall: Chest wall normal expansion with deep inspiration no tenderness and no deformity was found on exam, no costochondral pain or discomfort. Heart: Regular rate and rhythm, S1, S2 normal, no murmur, rub or gallop. Back: Symmetric, no curvature, ROM normal, no CVA tenderness. Abdomen: distended, Soft, non-tender, no rebound or rigidity, no hepatosplenomegaly. Extremities: Extremities normal, atraumatic, no cyanosis or edema. Pulses: 2+ and symmetric. Skin: Skin color, texture, tugor normal, no rashes or lesions. Neurologic: Alert oriented x3 cranial nerves II through XII intact, no motor deficit, no abnormal balance or gait Results CBC & Chem 7: 11/12/19 23:03 11/12/19 23:03 Labs: Abnormal Lab Results - Last 24 Hours (Table) 11/12/19 11/12/19 11/12/19 Range/Units 22:18 23:03 23:03 RBC 3.66 L (4.30-5.90) m/uL Hgb 11.6 L D (13.0-17.5) gm/dL Hct 34.8 L (39.0-53.0) % RDW 15.7 H (11.5-15.5) % D-Dimer (<0.60) mg/L FEU Chloride 95 L (98-107) mmol/L BUN 41 H (9-20) mg/dL Creatinine 8.31 H* (0.66-1.25) mg/dL Glucose 156 H (74-99) mg/dL POC Glucose (mg/dL) 244 H (75-99) mg/dL Calcium 10.3 H (8.4-10.2) mg/dL Phosphorus 4.9 H (2.5-4.5) mg/dL Troponin I (0.000-0.034) ng/mL Total Protein 8.5 H (6.3-8.2) g/dL 11/12/19 11/12/19 11/13/19 Range/Units 23:03 23:03 04:41 RBC (4.30-5.90) m/uL Hgb (13.0-17.5) gm/dL Hct (39.0-53.0) % RDW (11.5-15.5) % D-Dimer 0.86 H (<0.60) mg/L FEU Chloride (98-107) mmol/L BUN (9-20) mg/dL Creatinine (0.66-1.25) mg/dL Glucose (74-99) mg/dL POC Glucose (mg/dL) (75-99) mg/dL Calcium (8.4-10.2) mg/dL Phosphorus (2.5-4.5) mg/dL Troponin I 0.077 H* 0.111 H* (0.000-0.034) ng/mL Total Protein (6.3-8.2) g/dL 11/13/19 Range/Units 06:50 RBC (4.30-5.90) m/uL Hgb (13.0-17.5) gm/dL Hct (39.0-53.0) % RDW (11.5-15.5) % D-Dimer (<0.60) mg/L FEU Chloride (98-107) mmol/L BUN (9-20) mg/dL Creatinine (0.66-1.25) mg/dL Glucose (74-99) mg/dL POC Glucose (mg/dL) 173 H (75-99) mg/dL Calcium (8.4-10.2) mg/dL Phosphorus (2.5-4.5) mg/dL Troponin I (0.000-0.034) ng/mL Total Protein (6.3-8.2) g/dL Assessment and Plan Plan: 1. Acute shortness of breath with fluid overload. Arielle stilts 3 L of CAPD fluid and only removed 1.[address] of the chest performed the results noted above, venous Doppler ordered - negative for bilateral DVTs 2. Anemia. hemoglobin 11.6, hematocrit 34.8 3. Muscle cramping related to end-stage renal failure and anemia. resolved. Electrolytes within normal limits, 4.elevated troponin, consult cardiology, echocardiogram from 11/04/2019: EF 60- 65%, moderate concentric left ventricular hypertrophy, mild tricuspid regurgitation, mild pulmonary hypertension. troponin week related to kidney function 5. End-stage renal disease on CAPD with retention of PD fluid, consult Dr. Oropeza, continue CAPD exchange, 6. Coronary artery disease. cardiology consulted 7. Type 2 diabetes on insulin, continue with insulin and Accu-Cheks with slidi ng scale coverage. 8. Hyperlipidemia. Continue atorvastatin 40 mg by mouth at bedtime 9. Hypothyroidism. Continue levothyroxine 10. BPH. Continue Flomax 11. Hypertension, continue Norvasc, Lasix, hydralazine, metoprolol 12. GERD. Protonix 40 mg by mouth daily GI prophylaxis:continue Protonix DVT prophylaxis: early ambulation possible discharge today discharge plan:home with homecare Impression and plan of care have been directed as dictated by the signing physician. Mei Yi nurse practitioner acting as scribe for signing physician.
[2019-11-13] MEDS ORDERED: POLYETHYLENE GLYCOL 3350 17 GM POWD.PACK PO SCH (09:00)
[2019-11-13] MEDS ORDERED: TAMSULOSIN 0.4 MG CAP.ER.24H PO SCH (09:00)
[2019-11-13] MEDS ORDERED: FENOFIBRATE 160 MG TAB PO SCH (09:00)
[2019-11-13] MEDS ORDERED: PANTOPRAZOLE 40 MG TABLET PO SCH (09:00)
[2019-11-13] MEDS ORDERED: FOLIC ACID 1 MG TAB PO SCH (09:00)
[2019-11-13] MEDS ORDERED: METOPROLOL TARTRATE 25 MG TAB PO SCH (09:00)
[2019-11-13] MEDS ORDERED: amLODIPine 10 MG TAB PO SCH (09:00)
[2019-11-13] MEDS: FUROSEMIDE 80 MG TAB PO SCH ×2 (10:02→16:21)
[2019-11-13] MEDS ORDERED: LACTULOSE 20 GM/30 ML CUP PO ONE (10:30)
[2019-11-13 11:34] LABS: Glucose,Whole Blood 180 mg/dL (75-99)
[2019-11-13] MEDS ORDERED: DIALYSIS (PERIT 2.5%) 2,500 ML 62.5 G/2,500 ML BAG INTRAPERIT SCH (12:00)
--- NOTE | 2019-11-13 12:45 | P.CRDCN ---
History of Present Illness Consult date: 11/13/19 Chief complaint: Shortness of breath History of present illness: This is a very pleasant 74-year-old -[place] gentleman who does follow w ith a chainer out of the town with a past medical history significant for end stage renal disease on hemodialysis, diabetes, hypertension, and dyslipidemia, presented to the emergency room complaining of shortness of breath. The patient stated that he was in his usual state of health until yes terday when he started experiencing shortness of breath without any lower extremities edema and without any symptoms of chest pain or chest discomfort. He denies any fever or chills or cough. The patient is not aware of any prior history of coronary artery disease or congestive heart failure or cardiac arrhythmia. He stated that he does follow-up with the chainer out of the town but he does not recall why he sees a chainer. He underwent an echocardiogram recently and that revealed normal LV function with mild MR, mild TR, and mild pulmonary hypertension. The patient underwent dialysis yesterday and today with improvement in the shortness of breath. He underwent a d-dimer that came in to be abnormal but subsequently he underwent a CTA of the chest which showed no evidence of PE. The cardiac enzymes were checked and came in to be slightly abnormal but they are not consistent with acute coronary event and the patient also did not have any symptoms of chest pain or chest discomfort. The EKG did not show any evidence of ischemic ST or T-wave abnormalities concerning for ischemia. Overall the patient stated that he is feeling better. He is lower extremities muscle cramps has improved. His shortness of breath has improved as well. He states that he is back to his baseline. Past Medical History Past Medical History: Dialysis, Hyperlipidemia, Hypertension, Renal Disease, Thyroid Disorder History of Any Multi-Drug Resistant Organisms: None Reported Past Surgical History: No Surgical Hx Reported Additional Past Surgical History / Comment(s): placement of peritoneal dialysis catheter and repair of umbilical hernia 07/2017, colonoscopy with polypectomy in the distant past. Past Anesthesia/Blood Transfusion Reactions: No Reported Reaction Past Psychological History: No Psychological Hx Reported Smoking Status: Former smoker Past Alcohol Use History: None Reported Additional Past Alcohol Use History / Comment(s): patient states he used to be a heavy drinker but quit 2 years ago Past Drug Use History: None Reported - Past Family History Father Family Medical History: Myocardial Infarction ([place]) ( at 45) Additional Family Medical History / Comment(s): patient has 3 brothers and one sister is relatively healthy has chronic back problems patient has 5 children that are healthy with no kidney diabetes or coronary artery disease. Mother Family Medical History: Coronary Artery Disease (CAD), Diabetes Mellitus ( at 67) Medications and Allergies Home Medications Medication Instructions Recorded Confirmed Type Atorvastatin [Lipitor] 40 mg PO HS 11/13/16 11/13/19 History Fenofibrate Nanocrystallized 145 mg PO DAILY 11/13/16 11/13/19 History [Tricor] Tamsulosin HCl [Flomax] 0.4 mg PO DAILY 11/13/16 11/13/19 History Lansoprazole 30 mg PO DAILY 06/09/18 11/13/19 History Acetaminophen Tab [Tylenol] 650 mg PO Q6H PRN 11/04/19 11/13/19 History Calcitriol [Rocaltrol] 0.25 mcg PO DIRECTED 11/04/19 11/13/19 History Cholecalciferol [Vitamin D3 (25 1,000 unit PO DAILY 11/04/19 11/13/19 History Mcg = 1000 Iu)] Darbepoetin Fausto [Aranesp] 60 mcg IJ WE 11/04/19 11/13/19 History Folic Acid 0.4 mg PO DAILY 11/04/19 11/13/19 History Levothyroxine Sodium [Synthroid] 150 mcg PO DAILY 11/04/19 11/13/19 History Polyethylene Glycol 3350 [Miralax] 17 gm PO DAILY 11/04/19 11/13/19 History amLODIPine [Norvasc] 10 mg PO DAILY 11/04/19 11/13/19 History oxyCODONE HCL [Roxicodone] 5 mg PO Q4H PRN 11/04/19 11/13/19 History Furosemide [Lasix] 80 mg PO BID@0900,1600 #60 tab 11/08/19 11/13/19 Rx Metoprolol Tartrate [Lopressor] 25 mg PO BID #60 tab 11/08/19 11/13/19 Rx hydrALAZINE HCL [Apresoline] 25 mg PO TID #90 tab 11/08/19 11/13/19 Rx Insuln Asp Prt/Insulin Aspart 16 unit SQ AC-SUPPER 11/13/19 11/13/19 History [NovoLOG MIX 70-30 VIAL] Insuln Asp Prt/Insulin Aspart 30 unit SQ AC-BRKFST 11/13/19 11/13/19 History [NovoLOG MIX 70-30 VIAL] Allergies Allergy/AdvReac Type Severity Reaction Status Date / Time No Known Allergies Allergy Verified 11/13/19 07:35 Physical Exam Vitals: Vital Signs Temp Pulse Pulse Resp BP BP Pulse Ox 11/13/19 08:50 98.4 F 85 18 130/67 96 11/13/19 07:00 98.4 F 85 18 130/67 96 11/13/19 02:38 98.0 F 87 18 162/57 100 11/13/19 01:37 98.4 F 81 21 131/84 100 11/13/19 00:29 97.5 F L 81 22 158/79 100 11/12/19 23:27 77 24 138/63 100 11/12/19 23:13 80 22 138/63 93 L 11/12/19 22:12 98.5 F 86 26 H 131/83 96 Intake and Output 11/12/19 11/13/19 11/13/19 22:59 06:59 14:59 Intake Total 540 Balance 540 Intake: Oral 540 Other: Weight 107.955 kg 107.955 kg - Constitutional General appearance: no acute distress - Respiratory Respiratory: bilateral: CTA - Cardiovascular Heart sounds: normal: S1, S2 Results 11/12/19 23:03 11/12/19 23:03 Cardiac Enzymes 11/12/19 11/12/19 11/13/19 Range/Units 23:03 23:03 04:41 AST 21 (17-59) U/L Troponin I 0.077 H* 0.111 H* (0.000-0.034) ng/mL 11/13/19 Range/Units 10:27 AST (17-59) U/L Troponin I 0.113 H* (0.000-0.034) ng/mL Coagulation 11/12/19 Range/Units 23:03 PT 10.3 (9.0-12.0) sec APTT 23.7 (22.0-30.0) sec CBC 11/12/19 Range/Units 23:03 WBC 6.8 (3.8-10.6) k/uL RBC 3.66 L (4.30-5.90) m/uL Hgb 11.6 L D (13.0-17.5) gm/dL Hct 34.8 L (39.0-53.0) % Plt Count 416 (150-450) k/uL Comprehensive Metabolic Panel 11/12/19 Range/Units 23:03 Sodium 140 (137-145) mmol/L Potassium 4.6 (3.5-5.1) mmol/L Chloride 95 L (98-107) mmol/L Carbon Dioxide 29 (22-30) mmol/L BUN 41 H (9-20) mg/dL Creatinine 8.31 H* (0.66-1.25) mg/dL Glucose 156 H (74-99) mg/dL Calcium 10.3 H (8.4-10.2) mg/dL AST 21 (17-59) U/L ALT 23 (4-49) U/L Alkaline Phosphatase 76 (38-126) U/L Total Protein 8.5 H (6.3-8.2) g/dL Albumin 4.8 (3.5-5.0) g/dL Current Medications Generic Name Dose Route Start Last Admin Trade Name Freq PRN Reason Stop Dose Admin Amlodipine Besylate 10 mg 11/13/19 09:00 11/13/19 07:52 Norvasc PO 10 mg DAILY ALLISON Administration Atorvastatin Calcium 40 mg 11/13/19 21:00 Lipitor PO HS [facility] Darbepoetin Fausto 60 mcg 11/16/19 09:00 Aranesp SQ WE ALLISON Fenofibrate 160 mg 11/13/19 09:00 11/13/19 10:01 Lofibra PO 160 mg DAILY ALLISON Administration Folic Acid 1 mg 11/13/19 09:00 11/13/19 10:01 Folic Acid PO 1 mg DAILY ALLISON Administration Furosemide 80 mg 11/13/19 09:00 11/13/19 10:02 Lasix PO 80 mg BID@0900,1600 ALLISON Administration Hydralazine HCl 25 mg 11/13/19 09:00 11/13/19 07:52 Apresoline PO 25 mg TID ALLISON Administration Peritoneal Dialysis Solution 37.5 g in 2,500 mls @ 0 mls/hr 11/13/19 06:00 11/13/19 08:04 Delflex With 1.5% Dextrose (2,500 Ml) INTRAPERIT 5 mls/hr 0600,1800 ALLISON Administration Protocol As Directed Peritoneal Dialysis Solution 62.5 g in 2,500 mls @ 0 mls/hr 11/13/19 12:00 Delflex With 2.5% Dextrose (2,500 Ml) INTRAPERIT 1200,0000 ALLISON Protocol As Directed Insulin Aspart 12 unit 11/13/19 17:30 Novolog Mix 70-30 Vial SQ AC-SUPPER ALLISON Insulin Aspart 24 unit 11/13/19 07:30 11/13/19 07:51 Novolog Mix 70-30 Vial SQ 24 unit AC-BRKFST ALLISON Administration Levothyroxine Sodium 150 mcg 11/13/19 06:30 11/13/19 05:09 Synthroid PO 150 mcg DAILY@0630 ALLISON Administration Metoprolol Tartrate 25 mg 11/13/19 09:00 11/13/19 07:52 Lopressor PO 25 mg BID ALLISON Administration Morphine Sulfate 4 mg 11/13/19 01:20 Morphine Sulfate (Inj) IV Q4HR PRN Severe Pain Naloxone HCl 0.2 mg 11/13/19 01:20 Narcan IV Q2M PRN Opioid Reversal Oxycodone HCl 5 mg 11/13/19 07:59 Oxyir PO Q4H PRN Pain Pantoprazole Sodium 40 mg 11/13/19 09:00 11/13/19 07:52 Protonix PO 40 mg DAILY ALLISON Administration Polyethylene Glycol 17 gm 11/13/19 09:00 Miralax PO DAILY ALLISON Tamsulosin HCl 0.4 mg 11/13/19 09:00 11/13/19 10:01 Flomax PO 0.4 mg DAILY ALLISON Administration Intake and Output 11/12/19 11/13/19 11/13/19 22:59 06:59 14:59 Intake Total 540 Balance 540 Intake: Oral 540 Other: Weight 107.955 kg 107.955 kg 11/12/19 23:03 11/12/19 23:03 Assessment and Plan Assessment: Assessment #1 shortness of breath probably related to fluid overload. The shortness of breath has improved #2 into stage renal disease on hemodialysis #3 mildly abnormal cardiac enzymes in the absence of chest pain #4 multiple comorbid conditions Plan #1 continue the current medical regimen #2 add aspirin to the current medical regimen #3 from the cardiovascular standpoint overview, the patient possibly can be discharged home and follow-up with his chainer Thank you for allowing us participate in his care
--- NOTE | 2019-11-13 13:08 | CONS ---
CONSULTATION REASON FOR CONSULT: End-stage renal disease. HISTORY OF PRESENT ILLNESS: Patient is a 74-year-old male with end-stage renal disease recently started on peritoneal dialysis, currently being followed at an outside facility in [place]. The patient was admitted to the hospital with complaints of shortness of breath. This has improved. He denies any significant chest pains. Troponin was borderline. Patient was recently admitted for anemia and hematuria and was just discharged on 11/08/2019. He had been on anticoagulation and the hematuria had improved prior to discharge. Patient received packed RBCs transfusion. PAST MEDICAL HISTORY: End-stage renal disease, on peritoneal dialysis, hyperlipidemia, hypertension, hypothyroidism. PAST SURGICAL HISTORY: Peritoneal dialysis catheter placement, colonoscopy, polypectomy, umbilical hernia repair. SOCIAL HISTORY: Patient is a former smoker. No history of drug abuse or alcohol abuse. MEDICATIONS: Medications at home prior to admission, Lipitor, Tricor, Flomax, Tylenol, Rocaltrol, Aranesp, Synthroid, MiraLAX, Norvasc, Lasix, hydralazine, Lopressor, insulin. ALLERGIES: None. REVIEW OF SYSTEMS: As per HPI. Other systems negative. EXAMINATION: Patient is comfortable, awake, not in any acute distress. Alert and oriented x3. Blood pressure was 130/67, heart rate 85 per minute. He is afebrile. Examination of the heart S1, S2. Examination of lungs bilateral breath sounds are heard. ABDOMEN: Soft, nontender. Examination of lower extremities shows no significant edema. Chronic skin changes are noted. BUTTONHOLE FACER exam grossly intact. LAB: Show sodium 140, potassium 4.6, chloride 95, CO2 is 29, BUN 41, creatinine 8.3, hemoglobin 11.6 g/dL. Troponin 0.113. ASSESSMENT: 1. End-stage renal disease, on peritoneal dialysis continue current PD exchanges. Patient is advised to avoid constipation and we will give him a dose of lactulose. He takes MiraLAX at home. High-fiber diet is also encouraged. 2. Mild hypercalcemia noted with calcium at 10.3. Patient takes Rocaltrol. This will need to be adjusted as outpatient. I will hold off on the Rocaltrol for now. 3. Shortness of breath, now improved. Continue with oral diuretics as patient has good urine output as well. 4. Dyslipidemia. 5. Recent admission for severe anemia secondary to hematuria with stool for occult blood being negative on his last admission. PLAN: Hold Calcitriol. Add lactulose for constipation. Follow up as outpatient with the primary Dialysis Unit. MMODL / IJN: [id number] /
[2019-11-13 14:32] VITALS: RESP 16
[2019-11-13 17:30] VITALS: BP 137/50; PULSE 81; TEMP 98.5
[2019-11-13] MEDS ORDERED: ATORVASTATIN 40 MG TAB PO SCH (21:00)
[2019-11-14] MEDS ORDERED: CALCITRIOL 0.25 MCG CAP PO SCH (08:00)
[2019-11-14] MEDS ORDERED: ASPIRIN 81 MG PO SCH (09:00)
[2019-11-16] MEDS ORDERED: DARBEPOETIN ALFA 60 MCG/0.3 ML SYRINGE SQ SCH (09:00)
== END 2019-11-13 17:59 | disposition home or self-care (01) ==
LOC: EC 22:10 → 4SSUR 11-13 01:20
PROVIDERS: ADMIT Internal Medicine; ATTEND Internal Medicine
DX: R06.02 Shortness of breath (principal); E87.70 Fluid overload, unspecified; D64.9 Anemia, unspecified; E11.22 Type 2 diabetes mellitus with diabetic chronic kidney disease; I12.0 Hypertensive chronic kidney disease with stage 5 chronic kidney disease or end stage renal disease; N18.6 End stage renal disease; E03.9 Hypothyroidism, unspecified; E78.5 Hyperlipidemia, unspecified; E83.52 Hypercalcemia; I25.10 Atherosclerotic heart disease of native coronary artery without angina pectoris; I27.20 Pulmonary hypertension, unspecified; J90 Pleural effusion, not elsewhere classified; K21.9 Gastro-esophageal reflux disease without esophagitis; N40.0 Benign prostatic hyperplasia without lower urinary tract symptoms; Z79.4 Long term (current) use of insulin; Z79.890 Hormone replacement therapy; Z79.899 Other long term (current) drug therapy; Z82.49 Family history of ischemic heart disease and other diseases of the circulatory system; Z83.3 Family history of diabetes mellitus; Z87.891 Personal history of nicotine dependence; Z99.2 Dependence on renal dialysis; K59.00 Constipation, unspecified; R79.89 Other specified abnormal findings of blood chemistry
CPT/HCPCS: 96374; 99285; 36415; 93005 ×2; 85379; 83880; 80053; 83735; 84100; 84484 ×2; 85025; 85610; 85730; 71046; 93970; 71275; 74177; G0378; J2270; A4722 ×2; Q9967

== ENCOUNTER 2019-11-21 17:52 | Inpatient (IN) | payer OTHER, MEDICARE ==
[2019-11-21] MEDS ORDERED: SODIUM CHLORIDE 0.9% 1,000 ML IV STA (18:55)
[2019-11-21 19:35] LABS: Basophils # (A) 0.2 k/uL (0-0.2); Basophils % (A) 3 %; Eosinophils # (A) 0.7 k/uL (0-0.7); Eosinophils % (A) 11 %; HCT 27.7 % (39.0-53.0); Lymphocytes % (A) 15 %; MCH 30.8 pg (25.0-35.0); MCHC 32.1 g/dL (31.0-37.0); Mean Platelet Volume 8.5; Monocytes # (A) 0.6 k/uL (0-1.0); Monocytes % (A) 8 %; Neutrophils # (A) 4.4 k/uL (1.3-7.7); Neutrophils % (A) 62 %; Platelet Count 293 k/uL (150-450); RBC 2.89 m/uL (4.30-5.90); RDW 15.2 % (11.5-15.5)
[2019-11-21 19:40] LABS: HGB 8.9 gm/dL (13.0-17.5)
[2019-11-21 19:42] LABS: Amorphous Sediment,Urine Occasional /hpf; Appearance,Urine Turbid (Clear); Bilirubin,Urine Negative (Negative); Blood,Urine Moderate (Negative); Color,Urine Dark Red; Glucose,Urine (UA) Negative (Negative); Ketones,Urine Negative (Negative); Leukocyte Esterase,Urine Moderate (Negative); Nitrite,Urine Negative (Negative); Protein,Urine 2+ (Negative); RBC,Urine >182 /hpf (0-5); Urobilinogen,Urine <2.0 mg/dL (<2.0); WBC,Urine >182 /hpf (0-5)
[2019-11-21 19:45] LABS: Albumin 3.7 g/dL (3.5-5.0); Calcium 8.8 mg/dL (8.4-10.2); Potassium 4.1 mmol/L (3.5-5.1); Total Bilirubin 0.5 mg/dL (0.2-1.3); Total Protein 6.6 g/dL (6.3-8.2)
[2019-11-21 19:47] LABS: INR 1.1 (<1.2); Partial Thromboplastin Time 26.2 sec (22.0-30.0); Prothrombin Time 11.1 sec (9.0-12.0)
[2019-11-21 19:51] LABS: Specific Gravity,Urine >1.050 (1.001-1.035)
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
[2019-11-21] MEDS ORDERED: MORPHINE SULFATE 4 MG/ML SYRINGE IVP STA (20:32)
[2019-11-21] MEDS ORDERED: NALOXONE 0.4 MG/ML 1 ML VIAL IV PRN (21:06)
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
[2019-11-21] MEDS ORDERED: SODIUM CHLORIDE 0.9% 1,000 ML IV SCH (21:15)
[2019-11-21 23:30] LABS: Glucose,Whole Blood 107 mg/dL (75-99)
[2019-11-22] MEDS: DIALYSIS (PERIT 2.5%) 2,000 ML 50 G/2,000 ML BAG INTRAPERIT SCH ×4 (01:21→22:48)
[2019-11-22] MEDS ORDERED: DIALYSIS (PERITONL) DEX 2.5% 2,000 ML INTRAPERIT ONE (05:00)
[2019-11-22 07:20] LABS: Glucose,Whole Blood 99 mg/dL (75-99)
[2019-11-22 07:50] LABS: Basophils # (A) 0.1 k/uL (0-0.2); Basophils % (A) 1 %; Eosinophils # (A) 0.7 k/uL (0-0.7); Eosinophils % (A) 12 %; HCT 24.6 % (39.0-53.0); Hypochromasia Slight; Lymphocytes # (A) 0.9 k/uL (1.0-4.8); Lymphocytes % (A) 17 %; MCH 31.6 pg (25.0-35.0); MCHC 32.6 g/dL (31.0-37.0); Mean Platelet Volume 9.3; Monocytes # (A) 0.4 k/uL (0-1.0); Monocytes % (A) 7 %; Neutrophils # (A) 3.3 k/uL (1.3-7.7); Neutrophils % (A) 60 %; Platelet Count 259 k/uL (150-450); RBC 2.54 m/uL (4.30-5.90); RDW 15.1 % (11.5-15.5); WBC 5.5 k/uL (3.8-10.6)
[2019-11-22] MEDS ORDERED: DARBEPOETIN ALFA 40 MCG/0.4 ML SYRINGE SQ SCH (10:00)
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
[2019-11-22] MEDS ORDERED: DIALYSIS (PERIT 2.5%) 2,000 ML 50 G/2,000 ML BAG INTRAPERIT SCH (12:00)
[2019-11-22 12:16] LABS: Glucose,Whole Blood 179 mg/dL (75-99)
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
[2019-11-22] MEDS ORDERED: ACETAMINOPHEN TAB 325 MG TAB PO PRN (13:59)
[2019-11-22 14:22] LABS: Basophils # (A) 0.1 k/uL (0-0.2); Basophils % (A) 2 %; Eosinophils # (A) 0.7 k/uL (0-0.7); Eosinophils % (A) 11 %; HGB 8.7 gm/dL (13.0-17.5); Hypochromasia Slight; Lymphocytes # (A) 0.9 k/uL (1.0-4.8); Lymphocytes % (A) 15 %; MCHC 31.2 g/dL (31.0-37.0); MCV 99.4 fL (80.0-100.0); Macrocytosis Slight; Mean Platelet Volume 8.9; Monocytes # (A) 0.4 k/uL (0-1.0); Monocytes % (A) 7 %; Neutrophils # (A) 3.6 k/uL (1.3-7.7); Neutrophils % (A) 63 %; Platelet Count 268 k/uL (150-450); RBC 2.82 m/uL (4.30-5.90); RDW 14.9 % (11.5-15.5); WBC 5.7 k/uL (3.8-10.6)
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
[2019-11-22] MEDS: FUROSEMIDE 80 MG TAB PO SCH (15:50)
[2019-11-22] MEDS: MORPHINE SULFATE 4 MG/ML SYRINGE IVP PRN (15:51)
[2019-11-22] MEDS: TAMSULOSIN 0.4 MG CAP.ER.24H PO SCH (15:51)
[2019-11-22] MEDS: hydrALAZINE HCL 25 MG TAB PO SCH ×2 (15:51→22:49)
[2019-11-22] MEDS: INSULN ASP PRT/INSULIN ASPART 100 UNIT/ML 10 ML VIAL SQ SCH (17:04)
[2019-11-22 17:06] LABS: Glucose,Whole Blood 203 mg/dL (75-99)
[2019-11-22 20:47] LABS: Glucose,Whole Blood 69 mg/dL (75-99)
[2019-11-22] MEDS: ATORVASTATIN 40 MG TAB PO SCH (22:49)
[2019-11-22] MEDS: METOPROLOL TARTRATE 25 MG TAB PO SCH (22:59)
[2019-11-23] MEDS: MORPHINE SULFATE 4 MG/ML SYRINGE IVP PRN ×2 (01:09→12:36)
[2019-11-23] MEDS: DIALYSIS (PERIT 2.5%) 2,000 ML 50 G/2,000 ML BAG INTRAPERIT SCH ×4 (03:15→21:48)
[2019-11-23] MEDS: LEVOTHYROXINE 75 MCG TAB PO SCH (06:14)
[2019-11-23 07:14] LABS: Glucose,Whole Blood 68 mg/dL (75-99)
[2019-11-23] MEDS: FOLIC ACID 1 MG TAB PO SCH (08:09)
[2019-11-23] MEDS: TAMSULOSIN 0.4 MG CAP.ER.24H PO SCH (08:09)
[2019-11-23] MEDS: FENOFIBRATE 160 MG TAB PO SCH (08:09)
[2019-11-23] MEDS: CHOLECALCIFEROL 1,000 UNIT TAB PO SCH (08:10)
[2019-11-23] MEDS: hydrALAZINE HCL 25 MG TAB PO SCH ×3 (08:10→22:53)
[2019-11-23] MEDS: FUROSEMIDE 80 MG TAB PO SCH ×2 (08:10→16:39)
[2019-11-23] MEDS: METOPROLOL TARTRATE 25 MG TAB PO SCH ×2 (08:10→20:38)
[2019-11-23] MEDS: PANTOPRAZOLE 40 MG TABLET PO SCH (08:10)
[2019-11-23] MEDS: amLODIPine 10 MG TAB PO SCH (08:10)
[2019-11-23] MEDS ORDERED: TAMSULOSIN 0.4 MG CAP.ER.24H PO SCH (08:30)
[2019-11-23 08:35] LABS: Glucose,Whole Blood 289 mg/dL (75-99)
[2019-11-23] MEDS: INSULN ASP PRT/INSULIN ASPART 100 UNIT/ML 10 ML VIAL SQ SCH ×2 (08:40→17:36)
[2019-11-23 11:37] LABS: Glucose,Whole Blood 178 mg/dL (75-99)
[2019-11-23] MEDS: LEVOFLOXACIN 250MG-D5W PMX 250 MG in DEXTROSE/WATER 1 50ML.BAG IVPB SCH (12:27)
--- NOTE | 2019-11-23 14:24 | PN ---
PROGRESS NOTE Patient is seen for followup for end-stage renal disease. His dialysis has been working well. We were able to instill fluid and drained fluid as well. The patient denies any significant complaints. He is complaining of back pain, but there is no abdominal pain. PHYSICAL EXAMINATION: On examination, blood pressure is 141/54, heart rate 80 per minute, she is afebrile. Examination of the heart S1, S2. Examination of the lungs, bilateral breath sounds are heard. Abdomen is soft, nontender. Examination lower extremities shows edema 1+ bilaterally. LABS: Show hemoglobin 8.7 on November 22. ASSESSMENT: 1. End-stage renal disease on peritoneal dialysis continue current PD exchanges. 2. Anemia of chronic disease, maintained on Aranesp. 3. Back pain status post CT of the spine with no evidence of abscess or significant acute pathology. 4. Hematuria status post evaluation by Urology. The patient will need outpatient followup for cystoscopy. He apparently has an appointment with urologist out of town on November 28. 5. Chronic kidney disease mineral bone disorder. PLAN: Continue current medications. Continue current dialysis. MMODL / IJN: [id number] /
[2019-11-23] MEDS ORDERED: BACLOFEN 10 MG TAB PO PRN (14:47)
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
[2019-11-23] MEDS ORDERED: DARBEPOETIN ALFA 60 MCG/0.3 ML SYRINGE SQ SCH (14:56)
[2019-11-23 16:44] LABS: Glucose,Whole Blood 113 mg/dL (75-99)
[2019-11-23] MEDS: ATORVASTATIN 40 MG TAB PO SCH (20:38)
[2019-11-23 20:42] LABS: Glucose,Whole Blood 274 mg/dL (75-99)
[2019-11-24] MEDS: DIALYSIS (PERIT 2.5%) 2,000 ML 50 G/2,000 ML BAG INTRAPERIT SCH ×2 (03:22→09:14)
[2019-11-24 04:25] VITALS: RESP 16
[2019-11-24] MEDS: LEVOTHYROXINE 75 MCG TAB PO SCH (06:02)
[2019-11-24 07:12] LABS: Glucose,Whole Blood 205 mg/dL (75-99)
[2019-11-24] MEDS: TAMSULOSIN 0.4 MG CAP.ER.24H PO SCH (07:32)
[2019-11-24] MEDS: CHOLECALCIFEROL 1,000 UNIT TAB PO SCH (07:32)
[2019-11-24] MEDS: INSULN ASP PRT/INSULIN ASPART 100 UNIT/ML 10 ML VIAL SQ SCH (07:32)
[2019-11-24] MEDS: hydrALAZINE HCL 25 MG TAB PO SCH (07:32)
[2019-11-24] MEDS: FENOFIBRATE 160 MG TAB PO SCH (07:32)
[2019-11-24] MEDS: FUROSEMIDE 80 MG TAB PO SCH (07:32)
[2019-11-24] MEDS: PANTOPRAZOLE 40 MG TABLET PO SCH (07:32)
[2019-11-24] MEDS: METOPROLOL TARTRATE 25 MG TAB PO SCH (07:32)
[2019-11-24] MEDS: amLODIPine 10 MG TAB PO SCH (07:32)
[2019-11-24] MEDS: FOLIC ACID 1 MG TAB PO SCH (07:32)
[2019-11-24 08:34] VITALS: PULSE 78
[2019-11-24 10:00] VITALS: BP 138/67; TEMP 98.5
[2019-11-24 10:08] LABS: Calcium 8.5 mg/dL (8.4-10.2); Potassium 3.7 mmol/L (3.5-5.1)
[2019-11-24 11:04] LABS: Glucose,Whole Blood 226 mg/dL (75-99)
[2019-11-24] MEDS: LEVOFLOXACIN 250MG-D5W PMX 250 MG in DEXTROSE/WATER 1 50ML.BAG IVPB SCH (11:29)
[2019-11-24 13:56] LABS: Glucose,Whole Blood 154 mg/dL (75-99)
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
--- NOTE | 2019-11-24 18:23 | PN ---
PROGRESS NOTE Patient is seen for followup for end-stage renal disease. He has had good PD exchanges. No significant complaints. Plan is for possible discharge today. PHYSICAL EXAMINATION: On examination, blood pressure this morning was 138/67, heart rate 84 per minute. Patient is afebrile. EXAMINATION OF THE HEART: S1 and S2. EXAMINATION OF LUNGS: Bilateral breath sounds are heard. ABDOMEN: Soft, non-tender. Examination of lower extremities shows no significant edema. Chronic skin changes are noted. LABS: Sodium 138, potassium 3.7, chloride 101, BUN 42, serum creatinine 4.1. ASSESSMENT: 1. End-stage renal disease, on peritoneal dialysis. Continue current PD exchanges. 2. Hematuria. To follow up with Urology as outpatient. Seems to have improved. 3. Atrial fibrillation, maintained on anticoagulation. 4. Anemia of chronic disease, maintained on Aranesp. 5. Back pain, now resolved. 6. Chronic kidney disease mineral bone disorder. PLAN: Patient is stable for discharge. Follow up at the primary dialysis unit. MMODL / IJN: [id number] /
[2019-11-25] MEDS ORDERED: CALCITRIOL 0.25 MCG CAP PO SCH (09:00)
[2019-11-25] MEDS ORDERED: LEVOFLOXACIN 250 MG TAB PO SCH (11:00)
== END 2019-11-24 15:57 | disposition home health service (06) | DRG 689 ==
LOC: EC 17:52 → 4SSUR 21:12
PROVIDERS: ADMIT Family Medicine; ATTEND Family Medicine
PROC: 3E1M39Z Irrigation of Peritoneal Cavity using Dialysate, Percutaneous Approach (ICD-10-PCS; principal; 2019-11-22)
DX: N39.0 Urinary tract infection, site not specified (principal); G93.41 Metabolic encephalopathy; N18.6 End stage renal disease; I13.2 Hypertensive heart and chronic kidney disease with heart failure and with stage 5 chronic kidney disease, or end stage renal disease; I42.6 Alcoholic cardiomyopathy; I50.32 Chronic diastolic (congestive) heart failure; Z16.29 Resistance to other single specified antibiotic; N30.91 Cystitis, unspecified with hematuria; D63.8 Anemia in other chronic diseases classified elsewhere; E11.22 Type 2 diabetes mellitus with diabetic chronic kidney disease; K70.9 Alcoholic liver disease, unspecified; E03.9 Hypothyroidism, unspecified; B95.2 Enterococcus as the cause of diseases classified elsewhere; E78.5 Hyperlipidemia, unspecified; E87.5 Hyperkalemia; I25.10 Atherosclerotic heart disease of native coronary artery without angina pectoris; I48.0 Paroxysmal atrial fibrillation; N40.1 Benign prostatic hyperplasia with lower urinary tract symptoms; R33.8 Other retention of urine; E83.89 Other disorders of mineral metabolism; R79.89 Other specified abnormal findings of blood chemistry; M54.2 Cervicalgia; M54.5 Low back pain; Z79.01 Long term (current) use of anticoagulants; Z79.4 Long term (current) use of insulin; Z79.890 Hormone replacement therapy; Z79.891 Long term (current) use of opiate analgesic; Z79.899 Other long term (current) drug therapy; Z87.891 Personal history of nicotine dependence; Z99.2 Dependence on renal dialysis; Z86.010 Personal history of colon polyps; Z82.49 Family history of ischemic heart disease and other diseases of the circulatory system; Z83.3 Family history of diabetes mellitus
CPT/HCPCS: 36415; 51702; 51798; 70450; 72125; 72128; 72131; 74176; 80048; 80053; 81001; 82150; 82550; 83690; 85025; 85610; 85730; 87077; 87086; 87186; 96361; 96374; 99285

== ENCOUNTER 2020-08-04 02:23 | Inpatient (IN) | payer MEDICARE ==
[2020-08-04 02:37] LABS: Glucose,Whole Blood <20 mg/dL (75-99)
[2020-08-04] MEDS ORDERED: DEXTROSE 50% SYRINGE 50 ML IVP STA ×5 (02:39→13:59)
--- NOTE | 2020-08-04 02:46 | ED ---
Altered Mental Status HPI - General Chief Complaint: Altered Mental Status Stated Complaint: Altered Mental Status Time Seen by Provider: 08/04/20 02:31 Source: EMS Mode of arrival: EMS Limitations: altered mental status - History of Present Illness Initial Comments: This patient is 74-year-old man brought by ambulance for evaluation. When the EMS crew arrived she was not able to tell them what was going on, he was observed to be confused and diaphoretic. EMS performed an Accu-Chek and found a blood sugar of 41 and then gave oral glucose. The patient on arrival here states that he was not feeling well and was very sweaty and that was why he beatrice led EMS. He is still somewhat disoriented on arrival, but he is able to deny having dyspnea and denying pains. MD Complaint: confusion -: minutes(s) Severity: moderate Context: diabetes Associated Symptoms: diaphoresis Treatments Prior to Arrival: glucose - Related Data Home Medications Medication Instructions Recorded Confirmed Acetaminophen Tab [Tylenol] 650 mg PO Q6H PRN 11/04/19 08/04/20 Cholecalciferol [Vitamin D3 (25 1,000 unit PO DAILY 11/04/19 08/04/20 Mcg = 1000 Iu)] Folic Acid 0.4 mg PO DAILY 11/04/19 08/04/20 Calcium Acetate [PhosLo] 667 mg PO AC-TID 08/04/20 08/04/20 Clotrimazole/Betamethasone Dip 1 applic TOPICAL BID 08/04/20 08/04/20 [Lotrisone Cream] Previous Rx's Medication Instructions Recorded Atorvastatin [Lipitor] 40 mg PO HS tab 08/07/20 Fenofibrate [Lofibra] 160 mg PO DAILY tab 08/07/20 Furosemide [Lasix] 80 mg PO BID@0900,1600 tab 08/07/20 INSULIN ASPART (NovoLOG) [NovoLOG 0 unit SQ ACHS vial 08/07/20 (formulary)] Insuln Asp Prt/Insulin Aspart 4 unit SQ AC-BID #1 vial 08/07/20 [NovoLOG MIX 70-30 VIAL] Levofloxacin [Levaquin] 250 mg PO DAILY tab 08/07/20 Levothyroxine Sodium [Synthroid] 150 mcg PO DAILY@0630 tab 08/07/20 Metoprolol Tartrate [Lopressor] 25 mg PO BID tab 08/07/20 Pantoprazole [Protonix] 40 mg PO DAILY@0730 tablet. 08/07/20 Tamsulosin [Flomax] 0.4 mg PO DAILY #30 cap.er.24h 08/07/20 amLODIPine [Norvasc] 10 mg PO DAILY tab 08/07/20 hydrALAZINE HCL [Apresoline] 25 mg PO TID tab 08/07/20 oxyCODONE HCL [OxyIR] 5 mg PO Q4H PRN tab 08/07/20 polyethylene glycoL 3350 [Miralax] 17 gm PO DAILY powd.pack 08/07/20 Allergies Allergy/AdvReac Type Severity Reaction Status Date / Time No Known Allergies Allergy Verified 08/04/20 09:05 Review of Systems ROS Statement: Those systems with pertinent positive or pertinent negative responses have been documented in the HPI. ROS Other: All systems not noted in ROS Statement are negative. Limitations: ROS unobtainable due to patients medical condition Constitutional: Denies: fever Eyes: Denies: vision change Respiratory: Denies: cough, dyspnea Cardiovascular: Denies: chest pain Gastrointestinal: Denies: abdominal pain Musculoskeletal: Denies: back pain Neurological: Reports: confusion. Denies: headache Past Medical History Past Medical History: Dialysis, Hyperlipidemia, Hypertension, Renal Disease, Thyroid Disorder Additional Past Medical History / Comment(s): CAPD every 6 hours 2.5 %, a week ago couldn't urinate and had a calhoun, anemia ovver a week ago had to have blood transfusion, legs sometimes go out and buckle per pt History of Any Multi-Drug Resistant Organisms: None Reported Past Surgical History: No Surgical Hx Reported Additional Past Surgical History / Comment(s): placement of peritoneal dialysis catheter and repair of umbilical hernia 07/2017, colonoscopy with polypectomy in the distant past. Past Anesthesia/Blood Transfusion Reactions: No Reported Reaction Past Psychological History: No Psychological Hx Reported Smoking Status: Never smoker Past Alcohol Use History: None Reported Past Drug Use History: None Reported - Past Family History Father Family Medical History: Myocardial Infarction ([place]) ( at 45) Additional Family Medical History / Comment(s): patient has 3 brothers and one sister is relatively healthy has chronic back problems patient has 5 children that are healthy with no kidney diabetes or coronary artery disease. Mother Family Medical History: Coronary Artery Disease (CAD), Diabetes Mellitus ( at 67) General Exam Limitations: no limitations General appearance: alert Head exam: Present: atraumatic, normocephalic Eye exam: Present: normal appearance. Absent: scleral icterus, conjunctival injection ENT exam: Present: mucous membranes dry Neck exam: Present: normal inspection, full ROM. Absent: meningismus Respiratory exam: Present: normal lung sounds bilaterally. Absent: respiratory distress, wheezes, rales, rhonchi, stridor Cardiovascular Exam: Present: regular rate, normal rhythm, normal heart sounds. Absent: systolic murmur, diastolic murmur, rubs, gallop GI/Abdominal exam: Present: soft. Absent: distended, tenderness, guarding, rebound, rigid, mass Extremities exam: Present: normal inspection, normal capillary refill. Absent: pedal edema, calf tenderness Neurological exam: Present: alert. Absent: oriented X3 (Disoriented to time, patient oriented to person and recognizes he is in the hospital.), motor sensory deficit Skin exam: Present: warm, intact, normal color, diaphoretic. Absent: rash Course Vital Signs 08/04/20 08/04/20 08/04/20 02:34 02:39 03:30 Temperature 94.5 F L Pulse Rate 83 64 Pulse Rate [ Pulse Oximetery ] Respiratory 18 18 Rate Blood Pressure 133/69 149/78 Blood Pressure [Left Arm] O2 Sat by Pulse 97 100 Oximetry 08/04/20 08/04/20 08/04/20 05:00 05:13 08:00 Temperature 97.5 F L Pulse Rate 61 70 Pulse Rate [ Pulse Oximetery ] Respiratory 18 18 Rate Blood Pressure 112/65 118/72 Blood Pressure [Left Arm] O2 Sat by Pulse 99 98 Oximetry 08/04/20 08/04/20 08/04/20 08:10 09:08 10:00 Temperature 98.2 F 97.6 F Pulse Rate 71 Pulse Rate [ 68 Pulse Oximetery ] Respiratory 18 16 Rate Blood Pressure 108/50 Blood Pressure 127/74 [Left Arm] O2 Sat by Pulse 97 94 L Oximetry - Reevaluation(s) Reevaluation #1: 08/04/20 05:49 On reevaluation, patient states he is feeling well. He does state that he would like to go home. He denies any pain or dyspnea. We will recheck the sugar and if it is stable patient may be a suitable for discharge. Medical Decision Making - Lab Data Result diagrams: 08/06/20 06:22 08/06/20 06:22 Lab Results 08/04/20 08/04/20 08/04/20 Range/Units 02:28 02:48 03:04 WBC (3.8-10.6) k/uL RBC (4.30-5.90) m/uL Hgb (13.0-17.5) gm/dL Hct (39.0-53.0) % MCV (80.0-100.0) fL MCH (25.0-35.0) pg MCHC (31.0-37.0) g/dL RDW (11.5-15.5) % Plt Count (150-450) k/uL Neutrophils % (Manual) % Lymphocytes % (Manual) % Monocytes % (Manual) % Eosinophils % (Manual) % Neutrophils # (Manual) (1.3-7.7) k/uL Lymphocytes # (Manual) (1.0-4.8) k/uL Monocytes # (Manual) (0-1.0) k/uL Eosinophils # (Manual) (0-0.7) k/uL Nucleated RBCs (0-0) /100 WBC Manual Slide Review Hypochromasia PT (9.0-12.0) sec INR (<1.2) APTT (22.0-30.0) sec Sodium (137-145) mmol/L Potassium (3.5-5.1) mmol/L Chloride (98-107) mmol/L Carbon Dioxide (22-30) mmol/L Anion Gap mmol/L BUN (9-20) mg/dL Creatinine (0.66-1.25) mg/dL Est GFR (CKD-EPI)AfAm (>60 ml/min/1.73 sqM) Est GFR (CKD-EPI)NonAf (>60 ml/min/1.73 sqM) Glucose (74-99) mg/dL POC Glucose (mg/dL) <20 L 46 L <20 L (75-99) mg/dL POC Glu Cigarette Machine Filler Sylvia Adams Shamiya, A Sparling, Andrea Lactic Ac Sepsis Rflx Plasma Lactic Acid Gilberto (0.7-2.0) mmol/L Calcium (8.4-10.2) mg/dL Total Bilirubin (0.2-1.3) mg/dL AST (17-59) U/L ALT (4-49) U/L Alkaline Phosphatase (38-126) U/L Troponin I (0.000-0.034) ng/mL Total Protein (6.3-8.2) g/dL Albumin (3.5-5.0) g/dL Urine Color Urine Appearance (Clear) Urine pH (5.0-8.0) Ur Specific [place] (1.001-1.035) Urine Protein (Negative) Urine Glucose (UA) (Negative) Urine Ketones (Negative) Urine Blood (Negative) Urine Nitrite (Negative) Urine Bilirubin (Negative) Urine Urobilinogen (<2.0) mg/dL Ur Leukocyte Esterase (Negative) Urine RBC (0-5) /hpf Urine WBC (0-5) /hpf Urine Bacteria (None) /hpf Hyaline Casts (0-2) /lpf Urine Opiates Screen (NotDetected) Ur Oxycodone Screen (NotDetected) Urine Methadone Screen (NotDetected) Ur Propoxyphene Screen (NotDetected) Ur Barbiturates Screen (NotDetected) U Tricyclic Antidepress (NotDetected) Ur Phencyclidine Scrn (NotDetected) Ur Amphetamines Screen (NotDetected) U Methamphetamines Scrn (NotDetected) U Benzodiazepines Scrn (NotDetected) Urine Cocaine Screen (NotDetected) U Marijuana (THC) Screen (NotDetected) 08/04/20 08/04/20 08/04/20 Range/Units 03:10 03:16 03:16 WBC 7.1 (3.8-10.6) k/uL RBC 3.58 L (4.30-5.90) m/uL Hgb 11.0 L (13.0-17.5) gm/dL Hct 34.8 L (39.0-53.0) % MCV 97.2 (80.0-100.0) fL MCH 30.6 (25.0-35.0) pg MCHC 31.5 (31.0-37.0) g/dL RDW 15.5 (11.5-15.5) % Plt Count 302 (150-450) k/uL Neutrophils % (Manual) 77 % Lymphocytes % (Manual) 11 % Monocytes % (Manual) 8 % Eosinophils % (Manual) 4 % Neutrophils # (Manual) 5.47 (1.3-7.7) k/uL Lymphocytes # (Manual) 0.78 L (1.0-4.8) k/uL Monocytes # (Manual) 0.57 (0-1.0) k/uL Eosinophils # (Manual) 0.28 (0-0.7) k/uL Nucleated RBCs 0 (0-0) /100 WBC Manual Slide Review Performed Hypochromasia Slight PT 38.9 H (9.0-12.0) sec INR 3.9 H (<1.2) APTT 39.5 H (22.0-30.0) sec Sodium (137-145) mmol/L Potassium (3.5-5.1) mmol/L Chloride (98-107) mmol/L Carbon Dioxide (22-30) mmol/L Anion Gap mmol/L BUN (9-20) mg/dL Creatinine (0.66-1.25) mg/dL Est GFR (CKD-EPI)AfAm (>60 ml/min/1.73 sqM) Est GFR (CKD-EPI)NonAf (>60 ml/min/1.73 sqM) Glucose (74-99) mg/dL POC Glucose (mg/dL) 158 H (75-99) mg/dL POC Glu Cigarette Machine Filler ID Hetal Mason A Lactic Ac Sepsis Rflx Plasma Lactic Acid Gilberto (0.7-2.0) mmol/L Calcium (8.4-10.2) mg/dL Total Bilirubin (0.2-1.3) mg/dL AST (17-59) U/L ALT (4-49) U/L Alkaline Phosphatase (38-126) U/L Troponin I (0.000-0.034) ng/mL Total Protein (6.3-8.2) g/dL Albumin (3.5-5.0) g/dL Urine Color Urine Appearance (Clear) Urine pH (5.0-8.0) Ur Specific [place] (1.001-1.035) Urine Protein (Negative) Urine Glucose (UA) (Negative) Urine Ketones (Negative) Urine Blood (Negative) Urine Nitrite (Negative) Urine Bilirubin (Negative) Urine Urobilinogen (<2.0) mg/dL Ur Leukocyte Esterase (Negative) Urine RBC (0-5) /hpf Urine WBC (0-5) /hpf Urine Bacteria (None) /hpf Hyaline Casts (0-2) /lpf Urine Opiates Screen (NotDetected) Ur Oxycodone Screen (NotDetected) Urine Methadone Screen (NotDetected) Ur Propoxyphene Screen (NotDetected) Ur Barbiturates Screen (NotDetected) U Tricyclic Antidepress (NotDetected) Ur Phencyclidine Scrn (NotDetected) Ur Amphetamines Screen (NotDetected) U Methamphetamines Scrn (NotDetected) U Benzodiazepines Scrn (NotDetected) Urine Cocaine Screen (NotDetected) U Marijuana (THC) Screen (NotDetected) 08/04/20 08/04/20 08/04/20 Range/Units 03:16 03:16 03:16 WBC (3.8-10.6) k/uL RBC (4.30-5.90) m/uL Hgb (13.0-17.5) gm/dL Hct (39.0-53.0) % MCV (80.0-100.0) fL MCH (25.0-35.0) pg MCHC (31.0-37.0) g/dL RDW (11.5-15.5) % Plt Count (150-450) k/uL Neutrophils % (Manual) % Lymphocytes % (Manual) % Monocytes % (Manual) % Eosinophils % (Manual) % Neutrophils # (Manual) (1.3-7.7) k/uL Lymphocytes # (Manual) (1.0-4.8) k/uL Monocytes # (Manual) (0-1.0) k/uL Eosinophils # (Manual) (0-0.7) k/uL Nucleated RBCs (0-0) /100 WBC Manual Slide Review Hypochromasia PT (9.0-12.0) sec INR (<1.2) APTT (22.0-30.0) sec Sodium 130 L (137-145) mmol/L Potassium 3.7 (3.5-5.1) mmol/L Chloride 92 L (98-107) mmol/L Carbon Dioxide 27 (22-30) mmol/L Anion Gap 11 mmol/L BUN 22 H (9-20) mg/dL Creatinine 4.44 H (0.66-1.25) mg/dL Est GFR (CKD-EPI)AfAm 14 (>60 ml/min/1.73 sqM) Est GFR (CKD-EPI)NonAf 12 (>60 ml/min/1.73 sqM) Glucose 251 H (74-99) mg/dL POC Glucose (mg/dL) (75-99) mg/dL POC Glu Cigarette Machine Filler ID Lactic Ac Sepsis Rflx Plasma Lactic Acid Gilberto 3.2 H* (0.7-2.0) mmol/L Calcium 8.2 L (8.4-10.2) mg/dL Total Bilirubin 1.2 (0.2-1.3) mg/dL AST 29 (17-59) U/L ALT 6 (4-49) U/L Alkaline Phosphatase 110 (38-126) U/L Troponin I 0.054 H* (0.000-0.034) ng/mL Total Protein 6.2 L (6.3-8.2) g/dL Albumin 2.8 L (3.5-5.0) g/dL Urine Color Urine Appearance (Clear) Urine pH (5.0-8.0) Ur Specific [place] (1.001-1.035) Urine Protein (Negative) Urine Glucose (UA) (Negative) Urine Ketones (Negative) Urine Blood (Negative) Urine Nitrite (Negative) Urine Bilirubin (Negative) Urine Urobilinogen (<2.0) mg/dL Ur Leukocyte Esterase (Negative) Urine RBC (0-5) /hpf Urine WBC (0-5) /hpf Urine Bacteria (None) /hpf Hyaline Casts (0-2) /lpf Urine Opiates Screen (NotDetected) Ur Oxycodone Screen (NotDetected) Urine Methadone Screen (NotDetected) Ur Propoxyphene Screen (NotDetected) Ur Barbiturates Screen (NotDetected) U Tricyclic Antidepress (NotDetected) Ur Phencyclidine Scrn (NotDetected) Ur Amphetamines Screen (NotDetected) U Methamphetamines Scrn (NotDetected) U Benzodiazepines Scrn (NotDetected) Urine Cocaine Screen (NotDetected) U Marijuana (THC) Screen (NotDetected) 08/04/20 08/04/20 08/04/20 Range/Units 04:04 04:10 05:12 WBC (3.8-10.6) k/uL RBC (4.30-5.90) m/uL Hgb (13.0-17.5) gm/dL Hct (39.0-53.0) % MCV (80.0-100.0) fL MCH (25.0-35.0) pg MCHC (31.0-37.0) g/dL RDW (11.5-15.5) % Plt Count (150-450) k/uL Neutrophils % (Manual) % Lymphocytes % (Manual) % Monocytes % (Manual) % Eosinophils % (Manual) % Neutrophils # (Manual) (1.3-7.7) k/uL Lymphocytes # (Manual) (1.0-4.8) k/uL Monocytes # (Manual) (0-1.0) k/uL Eosinophils # (Manual) (0-0.7) k/uL Nucleated RBCs (0-0) /100 WBC Manual Slide Review Hypochromasia PT (9.0-12.0) sec INR (<1.2) APTT (22.0-30.0) sec Sodium (137-145) mmol/L Potassium (3.5-5.1) mmol/L Chloride (98-107) mmol/L Carbon Dioxide (22-30) mmol/L Anion Gap mmol/L BUN (9-20) mg/dL Creatinine (0.66-1.25) mg/dL Est GFR (CKD-EPI)AfAm (>60 ml/min/1.73 sqM) Est GFR (CKD-EPI)NonAf (>60 ml/min/1.73 sqM) Glucose (74-99) mg/dL POC Glucose (mg/dL) 241 H 279 H (75-99) mg/dL POC Glu Cigarette Machine Filler ID Hetal Mason A Pascal, Shamiya, A Lactic Ac Sepsis Rflx Y Plasma Lactic Acid Gilberto (0.7-2.0) mmol/L Calcium (8.4-10.2) mg/dL Total Bilirubin (0.2-1.3) mg/dL AST (17-59) U/L ALT (4-49) U/L Alkaline Phosphatase (38-126) U/L Troponin I (0.000-0.034) ng/mL Total Protein (6.3-8.2) g/dL Albumin (3.5-5.0) g/dL Urine Color Urine Appearance (Clear) Urine pH (5.0-8.0) Ur Specific [place] (1.001-1.035) Urine Protein (Negative) Urine Glucose (UA) (Negative) Urine Ketones (Negative) Urine Blood (Negative) Urine Nitrite (Negative) Urine Bilirubin (Negative) Urine Urobilinogen (<2.0) mg/dL Ur Leukocyte Esterase (Negative) Urine RBC (0-5) /hpf Urine WBC (0-5) /hpf Urine Bacteria (None) /hpf Hyaline Casts (0-2) /lpf Urine Opiates Screen (NotDetected) Ur Oxycodone Screen (NotDetected) Urine Methadone Screen (NotDetected) Ur Propoxyphene Screen (NotDetected) Ur Barbiturates Screen (NotDetected) U Tricyclic Antidepress (NotDetected) Ur Phencyclidine Scrn (NotDetected) Ur Amphetamines Screen (NotDetected) U Methamphetamines Scrn (NotDetected) U Benzodiazepines Scrn (NotDetected) Urine Cocaine Screen (NotDetected) U Marijuana (THC) Screen (NotDetected) 08/04/20 08/04/20 08/04/20 Range/Units 05:41 07:21 07:35 WBC (3.8-10.6) k/uL RBC (4.30-5.90) m/uL Hgb (13.0-17.5) gm/dL Hct (39.0-53.0) % MCV (80.0-100.0) fL MCH (25.0-35.0) pg MCHC (31.0-37.0) g/dL RDW (11.5-15.5) % Plt Count (150-450) k/uL Neutrophils % (Manual) % Lymphocytes % (Manual) % Monocytes % (Manual) % Eosinophils % (Manual) % Neutrophils # (Manual) (1.3-7.7) k/uL Lymphocytes # (Manual) (1.0-4.8) k/uL Monocytes # (Manual) (0-1.0) k/uL Eosinophils # (Manual) (0-0.7) k/uL Nucleated RBCs (0-0) /100 WBC Manual Slide Review Hypochromasia PT (9.0-12.0) sec INR (<1.2) APTT (22.0-30.0) sec Sodium (137-145) mmol/L Potassium (3.5-5.1) mmol/L Chloride (98-107) mmol/L Carbon Dioxide (22-30) mmol/L Anion Gap mmol/L BUN (9-20) mg/dL Creatinine (0.66-1.25) mg/dL Est GFR (CKD-EPI)AfAm (>60 ml/min/1.73 sqM) Est GFR (CKD-EPI)NonAf (>60 ml/min/1.73 sqM) Glucose (74-99) mg/dL POC Glucose (mg/dL) 214 H (75-99) mg/dL POC Glu Cigarette Machine Filler ID Kendal Willson Lactic Ac Sepsis Rflx Plasma Lactic Acid Gilberto 1.8 (0.7-2.0) mmol/L Calcium (8.4-10.2) mg/dL Total Bilirubin (0.2-1.3) mg/dL AST (17-59) U/L ALT (4-49) U/L Alkaline Phosphatase (38-126) U/L Troponin I (0.000-0.034) ng/mL Total Protein (6.3-8.2) g/dL Albumin (3.5-5.0) g/dL Urine Color Yellow Urine Appearance Clear (Clear) Urine pH 6.0 (5.0-8.0) Ur Specific [place] 1.014 (1.001-1.035) Urine Protein 2+ H (Negative) Urine Glucose (UA) Negative (Negative) Urine Ketones Negative (Negative) Urine Blood Moderate H (Negative) Urine Nitrite Negative (Negative) Urine Bilirubin Negative (Negative) Urine Urobilinogen <2.0 (<2.0) mg/dL Ur Leukocyte Esterase Large H (Negative) Urine RBC 8 H (0-5) /hpf Urine WBC 39 H (0-5) /hpf Urine Bacteria Rare H (None) /hpf Hyaline Casts 1 (0-2) /lpf Urine Opiates Screen Detected H (NotDetected) Ur Oxycodone Screen Detected H (NotDetected) Urine Methadone Screen Not Detected (NotDetected) Ur Propoxyphene Screen Not Detected (NotDetected) Ur Barbiturates Screen Not Detected (NotDetected) U Tricyclic Antidepress Not Detected (NotDetected) Ur Phencyclidine Scrn Not Detected (NotDetected) Ur Amphetamines Screen Not Detected (NotDetected) U Methamphetamines Scrn Not Detected (NotDetected) U Benzodiazepines Scrn Not Detected (NotDetected) Urine Cocaine Screen Not Detected (NotDetected) U Marijuana (THC) Screen Not Detected (NotDetected) 08/04/20 08/04/20 08/04/20 Range/Units 08:38 11:20 12:25 WBC (3.8-10.6) k/uL RBC (4.30-5.90) m/uL Hgb (13.0-17.5) gm/dL Hct (39.0-53.0) % MCV (80.0-100.0) fL MCH (25.0-35.0) pg MCHC (31.0-37.0) g/dL RDW (11.5-15.5) % Plt Count (150-450) k/uL Neutrophils % (Manual) % Lymphocytes % (Manual) % Monocytes % (Manual) % Eosinophils % (Manual) % Neutrophils # (Manual) (1.3-7.7) k/uL Lymphocytes # (Manual) (1.0-4.8) k/uL Monocytes # (Manual) (0-1.0) k/uL Eosinophils # (Manual) (0-0.7) k/uL Nucleated RBCs (0-0) /100 WBC Manual Slide Review Hypochromasia PT (9.0-12.0) sec INR (<1.2) APTT (22.0-30.0) sec Sodium (137-145) mmol/L Potassium (3.5-5.1) mmol/L Chloride (98-107) mmol/L Carbon Dioxide (22-30) mmol/L Anion Gap mmol/L BUN (9-20) mg/dL Creatinine (0.66-1.25) mg/dL Est GFR (CKD-EPI)AfAm (>60 ml/min/1.73 sqM) Est GFR (CKD-EPI)NonAf (>60 ml/min/1.73 sqM) Glucose (74-99) mg/dL POC Glucose (mg/dL) 62 L (75-99) mg/dL POC Glu Cigarette Machine Filler ID Dacia Batres Lactic Ac Sepsis Rflx Plasma Lactic Acid Gilberto (0.7-2.0) mmol/L Calcium (8.4-10.2) mg/dL Total Bilirubin (0.2-1.3) mg/dL AST (17-59) U/L ALT (4-49) U/L Alkaline Phosphatase (38-126) U/L Troponin I 0.059 H* 0.059 H* (0.000-0.034) ng/mL Total Protein (6.3-8.2) g/dL Albumin (3.5-5.0) g/dL Urine Color Urine Appearance (Clear) Urine pH (5.0-8.0) Ur Specific [place] (1.001-1.035) Urine Protein (Negative) Urine Glucose (UA) (Negative) Urine Ketones (Negative) Urine Blood (Negative) Urine Nitrite (Negative) Urine Bilirubin (Negative) Urine Urobilinogen (<2.0) mg/dL Ur Leukocyte Esterase (Negative) Urine RBC (0-5) /hpf Urine WBC (0-5) /hpf Urine Bacteria (None) /hpf Hyaline Casts (0-2) /lpf Urine Opiates Screen (NotDetected) Ur Oxycodone Screen (NotDetected) Urine Methadone Screen (NotDetected) Ur Propoxyphene Screen (NotDetected) Ur Barbiturates Screen (NotDetected) U Tricyclic Antidepress (NotDetected) Ur Phencyclidine Scrn (NotDetected) Ur Amphetamines Screen (NotDetected) U Methamphetamines Scrn (NotDetected) U Benzodiazepines Scrn (NotDetected) Urine Cocaine Screen (NotDetected) U Marijuana (THC) Screen (NotDetected) 08/04/20 08/04/20 08/04/20 Range/Units 12:45 13:00 13:07 WBC (3.8-10.6) k/uL RBC (4.30-5.90) m/uL Hgb (13.0-17.5) gm/dL Hct (39.0-53.0) % MCV (80.0-100.0) fL MCH (25.0-35.0) pg MCHC (31.0-37.0) g/dL RDW (11.5-15.5) % Plt Count (150-450) k/uL Neutrophils % (Manual) % Lymphocytes % (Manual) % Monocytes % (Manual) % Eosinophils % (Manual) % Neutrophils # (Manual) (1.3-7.7) k/uL Lymphocytes # (Manual) (1.0-4.8) k/uL Monocytes # (Manual) (0-1.0) k/uL Eosinophils # (Manual) (0-0.7) k/uL Nucleated RBCs (0-0) /100 WBC Manual Slide Review Hypochromasia PT (9.0-12.0) sec INR (<1.2) APTT (22.0-30.0) sec Sodium (137-145) mmol/L Potassium (3.5-5.1) mmol/L Chloride (98-107) mmol/L Carbon Dioxide (22-30) mmol/L Anion Gap mmol/L BUN (9-20) mg/dL Creatinine (0.66-1.25) mg/dL Est GFR (CKD-EPI)AfAm (>60 ml/min/1.73 sqM) Est GFR (CKD-EPI)NonAf (>60 ml/min/1.73 sqM) Glucose (74-99) mg/dL POC Glucose (mg/dL) 65 L 63 L 50 L (75-99) mg/dL POC Glu Cigarette Machine Filler Dacia Hall Paige Taylor, Julia Lactic Ac Sepsis Rflx Plasma Lactic Acid Gilberto (0.7-2.0) mmol/L Calcium (8.4-10.2) mg/dL Total Bilirubin (0.2-1.3) mg/dL AST (17-59) U/L ALT (4-49) U/L Alkaline Phosphatase (38-126) U/L Troponin I (0.000-0.034) ng/mL Total Protein (6.3-8.2) g/dL Albumin (3.5-5.0) g/dL Urine Color Urine Appearance (Clear) Urine pH (5.0-8.0) Ur Specific [place] (1.001-1.035) Urine Protein (Negative) Urine Glucose (UA) (Negative) Urine Ketones (Negative) Urine Blood (Negative) Urine Nitrite (Negative) Urine Bilirubin (Negative) Urine Urobilinogen (<2.0) mg/dL Ur Leukocyte Esterase (Negative) Urine RBC (0-5) /hpf Urine WBC (0-5) /hpf Urine Bacteria (None) /hpf Hyaline Casts (0-2) /lpf Urine Opiates Screen (NotDetected) Ur Oxycodone Screen (NotDetected) Urine Methadone Screen (NotDetected) Ur Propoxyphene Screen (NotDetected) Ur Barbiturates Screen (NotDetected) U Tricyclic Antidepress (NotDetected) Ur Phencyclidine Scrn (NotDetected) Ur Amphetamines Screen (NotDetected) U Methamphetamines Scrn (NotDetected) U Benzodiazepines Scrn (NotDetected) Urine Cocaine Screen (NotDetected) U Marijuana (THC) Screen (NotDetected) 08/04/20 08/04/20 08/04/20 Range/Units 13:26 13:59 14:09 WBC (3.8-10.6) k/uL RBC (4.30-5.90) m/uL Hgb (13.0-17.5) gm/dL Hct (39.0-53.0) % MCV (80.0-100.0) fL MCH (25.0-35.0) pg MCHC (31.0-37.0) g/dL RDW (11.5-15.5) % Plt Count (150-450) k/uL Neutrophils % (Manual) % Lymphocytes % (Manual) % Monocytes % (Manual) % Eosinophils % (Manual) % Neutrophils # (Manual) (1.3-7.7) k/uL Lymphocytes # (Manual) (1.0-4.8) k/uL Monocytes # (Manual) (0-1.0) k/uL Eosinophils # (Manual) (0-0.7) k/uL Nucleated RBCs (0-0) /100 WBC Manual Slide Review Hypochromasia PT (9.0-12.0) sec INR (<1.2) APTT (22.0-30.0) sec Sodium (137-145) mmol/L Potassium (3.5-5.1) mmol/L Chloride (98-107) mmol/L Carbon Dioxide (22-30) mmol/L Anion Gap mmol/L BUN (9-20) mg/dL Creatinine (0.66-1.25) mg/dL Est GFR (CKD-EPI)AfAm (>60 ml/min/1.73 sqM) Est GFR (CKD-EPI)NonAf (>60 ml/min/1.73 sqM) Glucose (74-99) mg/dL POC Glucose (mg/dL) 145 H 64 L 332 H (75-99) mg/dL POC Glu Cigarette Machine Filler Dacia Hall, Dacia Warner Lactic Ac Sepsis Rflx Plasma Lactic Acid Gilberto (0.7-2.0) mmol/L Calcium (8.4-10.2) mg/dL Total Bilirubin (0.2-1.3) mg/dL AST (17-59) U/L ALT (4-49) U/L Alkaline Phosphatase (38-126) U/L Troponin I (0.000-0.034) ng/mL Total Protein (6.3-8.2) g/dL Albumin (3.5-5.0) g/dL Urine Color Urine Appearance (Clear) Urine pH (5.0-8.0) Ur Specific [place] (1.001-1.035) Urine Protein (Negative) Urine Glucose (UA) (Negative) Urine Ketones (Negative) Urine Blood (Negative) Urine Nitrite (Negative) Urine Bilirubin (Negative) Urine Urobilinogen (<2.0) mg/dL Ur Leukocyte Esterase (Negative) Urine RBC (0-5) /hpf Urine WBC (0-5) /hpf Urine Bacteria (None) /hpf Hyaline Casts (0-2) /lpf Urine Opiates Screen (NotDetected) Ur Oxycodone Screen (NotDetected) Urine Methadone Screen (NotDetected) Ur Propoxyphene Screen (NotDetected) Ur Barbiturates Screen (NotDetected) U Tricyclic Antidepress (NotDetected) Ur Phencyclidine Scrn (NotDetected) Ur Amphetamines Screen (NotDetected) U Methamphetamines Scrn (NotDetected) U Benzodiazepines Scrn (NotDetected) Urine Cocaine Screen (NotDetected) U Marijuana (THC) Screen (NotDetected) 08/04/20 Range/Units 14:25 WBC (3.8-10.6) k/uL RBC (4.30-5.90) m/uL Hgb (13.0-17.5) gm/dL Hct (39.0-53.0) % MCV (80.0-100.0) fL MCH (25.0-35.0) pg MCHC (31.0-37.0) g/dL RDW (11.5-15.5) % Plt Count (150-450) k/uL Neutrophils % (Manual) % Lymphocytes % (Manual) % Monocytes % (Manual) % Eosinophils % (Manual) % Neutrophils # (Manual) (1.3-7.7) k/uL Lymphocytes # (Manual) (1.0-4.8) k/uL Monocytes # (Manual) (0-1.0) k/uL Eosinophils # (Manual) (0-0.7) k/uL Nucleated RBCs (0-0) /100 WBC Manual Slide Review Hypochromasia PT (9.0-12.0) sec INR (<1.2) APTT (22.0-30.0) sec Sodium (137-145) mmol/L Potassium (3.5-5.1) mmol/L Chloride (98-107) mmol/L Carbon Dioxide (22-30) mmol/L Anion Gap mmol/L BUN (9-20) mg/dL Creatinine (0.66-1.25) mg/dL Est GFR (CKD-EPI)AfAm (>60 ml/min/1.73 sqM) Est GFR (CKD-EPI)NonAf (>60 ml/min/1.73 sqM) Glucose (74-99) mg/dL POC Glucose (mg/dL) 254 H (75-99) mg/dL POC Glu Cigarette Machine Filler ID Marry Holly Lactic Ac Sepsis Rflx Plasma Lactic Acid Gilberto (0.7-2.0) mmol/L Calcium (8.4-10.2) mg/dL Total Bilirubin (0.2-1.3) mg/dL AST (17-59) U/L ALT (4-49) U/L Alkaline Phosphatase (38-126) U/L Troponin I (0.000-0.034) ng/mL Total Protein (6.3-8.2) g/dL Albumin (3.5-5.0) g/dL Urine Color Urine Appearance (Clear) Urine pH (5.0-8.0) Ur Specific [place] (1.001-1.035) Urine Protein (Negative) Urine Glucose (UA) (Negative) Urine Ketones (Negative) Urine Blood (Negative) Urine Nitrite (Negative) Urine Bilirubin (Negative) Urine Urobilinogen (<2.0) mg/dL Ur Leukocyte Esterase (Negative) Urine RBC (0-5) /hpf Urine WBC (0-5) /hpf Urine Bacteria (None) /hpf Hyaline Casts (0-2) /lpf Urine Opiates Screen (NotDetected) Ur Oxycodone Screen (NotDetected) Urine Methadone Screen (NotDetected) Ur Propoxyphene Screen (NotDetected) Ur Barbiturates Screen (NotDetected) U Tricyclic Antidepress (NotDetected) Ur Phencyclidine Scrn (NotDetected) Ur Amphetamines Screen (NotDetected) U Methamphetamines Scrn (NotDetected) U Benzodiazepines Scrn (NotDetected) Urine Cocaine Screen (NotDetected) U Marijuana (THC) Screen (NotDetected) - EKG Data -: EKG Interpreted by Me EKG shows normal: axis (Normal), intervals (Normal), QRS complexes (Normal) Rate: normal (Rate 66 bpm) Interpretation: other (Underlying rhythm appears to be Atrial fibrillation) Critical Care Time Critical Care Time: Yes (35 minutes) Disposition Clinical Impression: Altered mental status, Hypoglycemia, Urinary tract infection, Lactic acidosis Disposition: ADMITTED IP TO THIS [facility] Condition: Good Is patient prescribed a controlled substance at d/c from ED?: No
[2020-08-04 02:57] LABS: Glucose,Whole Blood 46 mg/dL (75-99)
[2020-08-04 03:29] LABS: HCT 34.8 % (39.0-53.0); Hypochromasia Slight; MCH 30.6 pg (25.0-35.0); MCHC 31.5 g/dL (31.0-37.0); MCV 97.2 fL (80.0-100.0); Platelet Count 302 k/uL (150-450); RBC 3.58 m/uL (4.30-5.90); RDW 15.5 % (11.5-15.5); WBC 7.1 k/uL (3.8-10.6)
--- NOTE | 2020-08-04 03:30 | XR ---
EXAMINATION TYPE: XR chest 1V portable DATE OF EXAM: 08/04/2020 COMPARISON: 11/12/2019 HISTORY: Difficulty breathing. Altered mental status TECHNIQUE: Single view FINDINGS: Heart is enlarged. There is right central venous catheter with tip in the superior vena cav a. Lungs are clear of consolidation. There is no heart failure. There is no pleural effusion. Bony th orax is intact. IMPRESSION: Cardiomegaly. Heart appears increased compared to old exam. No heart failure seen.
[2020-08-04 03:31] LABS: Glucose,Whole Blood <20 mg/dL (75-99)
[2020-08-04 03:31] LABS: Glucose,Whole Blood 158 mg/dL (75-99)
[2020-08-04 03:44] LABS: Eosinophils # (M) 0.28 k/uL (0-0.7); Lymphocytes # (M) 0.78 k/uL (1.0-4.8); Monocytes # (M) 0.57 k/uL (0-1.0); Neutrophils # (M) 5.47 k/uL (1.3-7.7); Neutrophils % (M) 77 %; Nucleated Red Blood Cells 0 /100 WBC (0-0); Total Cells Counted 100
[2020-08-04 03:51] LABS: Albumin 2.8 g/dL (3.5-5.0); Calcium 8.2 mg/dL (8.4-10.2); Potassium 3.7 mmol/L (3.5-5.1); Total Bilirubin 1.2 mg/dL (0.2-1.3); Total Protein 6.2 g/dL (6.3-8.2)
[2020-08-04 03:54] LABS: INR 3.9 (<1.2); Partial Thromboplastin Time 39.5 sec (22.0-30.0); Prothrombin Time 38.9 sec (9.0-12.0)
[2020-08-04] MEDS ORDERED: AMPICILLIN-SULBACTAM 3 GM in SODIUM CHLORIDE 0.9% 100 ML IVPB STA (04:05)
[2020-08-04 04:30] LABS: Glucose,Whole Blood 241 mg/dL (75-99)
[2020-08-04 05:32] LABS: Glucose,Whole Blood 279 mg/dL (75-99)
[2020-08-04 06:04] LABS: Appearance,Urine Clear (Clear); Bacteria,Urine Rare /hpf; Bilirubin,Urine Negative (Negative); Blood,Urine Moderate (Negative); Color,Urine Yellow; Glucose,Urine (UA) Negative (Negative); Hyaline Casts,Urine 1 /lpf (0-2); Ketones,Urine Negative (Negative); Leukocyte Esterase,Urine Large (Negative); Nitrite,Urine Negative (Negative); Protein,Urine 2+ (Negative); RBC,Urine 8 /hpf (0-5); Specific Gravity,Urine 1.014 (1.001-1.035); Urobilinogen,Urine <2.0 mg/dL (<2.0); WBC,Urine 39 /hpf (0-5)
[2020-08-04 06:15] LABS: Amphetamine Screen,Urine Not Detected (NotDetected); Barbiturate Screen,Urine Not Detected (NotDetected); Benzodiazepines Screen,Urine Not Detected (NotDetected); Cocaine Screen,Urine Not Detected (NotDetected); Methadone Screen, Urine Not Detected (NotDetected); Opiate Screen,Urine Detected (NotDetected); Phencyclidine Screen,Urine Not Detected (NotDetected); Tricyclic Antidepressant,Urine Not Detected (NotDetected)
[2020-08-04 06:16] LABS: Oxycodone Screen, Urine Detected (NotDetected); Urn Cannabinoid Scrn Not Detected (NotDetected)
[2020-08-04 07:22] LABS: Glucose,Whole Blood 214 mg/dL (75-99)
[2020-08-04] MEDS ORDERED: LEVOFLOXACIN 750 MG TAB PO STA (07:37)
[2020-08-04] MEDS ORDERED: NALOXONE 0.4 MG/ML 1 ML VIAL IV PRN (08:22)
[2020-08-04] MEDS ORDERED: ACETAMINOPHEN TAB 325 MG TAB PO PRN (08:24)
[2020-08-04] MEDS ORDERED: SODIUM CHLORIDE 0.9% 1,000 ML IV SCH (08:30)
[2020-08-04] MEDS ORDERED: SODIUM CHLORIDE 0.9% 1,000 ML IV ONE (08:39)
--- NOTE | 2020-08-04 11:35 | CT ---
EXAMINATION TYPE: CT brain wo con DATE OF EXAM: 08/04/2020 COMPARISON: 11/21/2019 HISTORY: 74-year-old male confusion, altered mental status TECHNIQUE: Examination was done in axial plane without intravenous contrast. Coronal and sagittal r econstructions performed. CT DLP: 1090.4 mGycm Automated exposure control for dose reduction was used. FINDINGS: There is no evidence of acute intracranial hemorrhage, acute ischemic changes, mass, mass-effect, or extra-axial fluid collection. There is no effacement of cerebral sulci or basal subarachnoid cister ns. There is no hydrocephalus. There is no midline shift. Jewell-white matter distinction is preserv ed. Mild bifrontal atrophy. Mild patchy periventricular white matter hypodensities. Atherosclerotic calcifications in the bilateral carotid siphons. Trace mucosal thickening ethmoid air cells. Mastoid air cells are well pneumatized. Orbits and globes are intact. IMPRESSION: Mild atrophy and mild changes of chronic small vessel ischemic disease. No acute intracranial abnorma lity seen.
[2020-08-04] MEDS: FENOFIBRATE 160 MG TAB PO SCH (12:07)
[2020-08-04] MEDS: hydrALAZINE HCL 25 MG TAB PO SCH ×3 (12:07→21:11)
[2020-08-04] MEDS: amLODIPine 10 MG TAB PO SCH (12:07)
[2020-08-04] MEDS: FOLIC ACID 1 MG TAB PO SCH (12:07)
[2020-08-04] MEDS: LEVOTHYROXINE 75 MCG TAB PO SCH (12:07)
[2020-08-04] MEDS: FUROSEMIDE 80 MG TAB PO SCH ×2 (12:07→17:15)
[2020-08-04] MEDS: METOPROLOL TARTRATE 25 MG TAB PO SCH ×2 (12:07→21:11)
[2020-08-04] MEDS: polyethylene glycoL 3350 17 GM POWD.PACK PO SCH (12:08)
[2020-08-04] MEDS: PANTOPRAZOLE 40 MG TABLET PO SCH (12:08)
[2020-08-04] MEDS: TAMSULOSIN 0.4 MG CAP.ER.24H PO SCH (12:08)
--- NOTE | 2020-08-04 12:13 | P.HPIM ---
History of Present Illness H&P Date: 08/04/20 This is a 74-year-old -Irish gentleman patient of Dr. Vidales with a past medical history significant for end-stage renal failure on dialysis Thursday, hyperlipidemia, hypertension, hypothyroid, previous EtOH abuse. Denies smoking. Patient lives alone and family comes to see him. Patient was brought into the emergency room via EMS. When EMS arrived on scene they stated that the patient was unable to tell them what was going on he was confused and diaphoretic. Blood sugar was 41 and was given oral glucose. The patient arrived to the hospital he remained not feeling well and diaphoretic. Patient states that while he was at home he began to feel sweaty and not well so he called EMS. Patient states that he ate approximate one hour prior to taking his insulin. Patient states that [facility] for the same symptoms. Patient decided to come to the nearest hospital because of his symptoms. Patient states that his daughter will be in this afternoon with his medication list and health problems. Review Of Systems: Constitutional: No fever, no chills, no night sweats. No weight change. Reports weakness, no fatigue or lethargy. No daytime sleepiness. Reports diaphoresis resolved EENT: No headache. No blurred vision or double vision, no loss of vision. No loss of Hearing, no ringing in the ears, no dizziness. No nasal drainage or congestion. No epistaxis. No sore throat. Lungs: No shortness of breath, cough, no sputum production. No wheezing. Cardiovascular: No chest pain, no lower extremity edema. No palpitations. No paroxysmal nocturnal dyspnea. No orthopnea. No lightheadedness or dizziness. No syncopal episodes. Abdominal: no abdominal discomfort. No nausea, vomiting. no diarrhea. No constipation. No bloody or tarry stools. no loss of appetite. Genitourinary: No dysuria, increased frequency, urgency. No urinary retention. Musculoskeletal: No myalgias. No muscle weakness, no gait dysfunction, no frequent falls. No back pain. No neck pain. Integumentary: No wounds, no lesions. No rash or pruritus. No unusual bruising. No change in hair or nails. Neurologic: No aphasia. No facial droop. No change in mentation. No head injury. No headache. No paralysis. No paresthesia. Psychiatric: No depression. No anxiety. No mood swings. Endocrine: No abnormal blood sugars. No weight change. No excessive sweating or thirst. Physical exam: General Appearance: Alert, cooperative, no distress, 74-year-old male appears stated age. Neck HEENT: Supple, no lymphadenopathy, no thyroid enlargement, no carotid bruits. Lungs: Clear to auscultation without crackles or wheezes no rhonchi, no deformity. Chest Wall: Dialysis catheter left upper chest wall, Chest wall normal expansion with deep inspiration no tenderness and no deformity was found on exam, no costochondral pain or discomfort. Heart: Regular rate and rhythm, S1, S2 normal, no murmur, rub or gallop. Back: Symmetric, no curvature, ROM normal, no CVA tenderness. Abdomen: Soft, non-tender, no rebound or rigidity, no hepatosplenomegaly. Extremities: Extremities normal, atraumatic, no cyanosis or edema. Pulses: 2+ and symmetric. Skin: Skin color, texture, tugor normal, no rashes or lesions. Neurologic: Alert oriented x3 cranial nerves II through XII intact, no motor deficit, no abnormal balance or gait Assessment/plan: 1. Hypoglycemia with altered mental status. Continue with Accu-Cheks before meals at bedtime, hold insulin at this time, carotid ultrasound 2. UTI with history of BPH self-catheterization. Levaquin 250 mg by mouth daily Rocephin 1 g every 24 hours. 3. Diabetes mellitus with complications. Continue with Accu-Cheks before meals at bedtime, hold insulin at this time, 4. Elevated troponin. Consult cardiology, echocardiogram ordered, continue serial troponin 5. End-stage renal failure with dialysis Thursday. PhosLo 667 mg by mouth before meals 3 times a day, folate acid 1 mg by mouth daily. Consult nephrology 6. Hypertension. Lopressor 25 mg twice a day, hydralazine 25 mg 3 times a day, Lasix 80 mg by mouth twice a day, Norvasc 10 mg by mouth daily 7. Hypothyroidism. Levothyroxine 150 g daily 8. Hyperlipidemia. Lipitor 40 mg by mouth at bedtime 9. BPH. Flomax 0.4 mg by mouth daily 10. DVT prophylaxis heparin 5000 units subcu 11. GI prophylaxis Protonix 40 mg daily by mouth CODE STATUS: Full code Discharge plan: A minimum of 2 nights day, possible to be determined. Impression and plan of care have been directed as dictated by the signing physician. Mei Yi nurse practitioner acting as scribe for signing physician. Past Medical History Past Medical History: Dialysis, Hyperlipidemia, Hypertension, Renal Disease, Thyroid Disorder Additional Past Medical History / Comment(s): . History of Any Multi-Drug Resistant Organisms: None Reported Past Surgical History: No Surgical Hx Reported Additional Past Surgical History / Comment(s): . Past Anesthesia/Blood Transfusion Reactions: No Reported Reaction Past Psychological History: No Psychological Hx Reported Smoking Status: Never smoker Past Alcohol Use History: None Reported Additional Past Alcohol Use History / Comment(s): patient states he used to be a heavy drinker but quit many years ago Past Drug Use History: None Reported - Past Family History Father Family Medical History: Myocardial Infarction (ME) Additional Family Medical History / Comment(s): patient has 3 brothers and one sister is relatively healthy has chronic back problems patient has 5 children that are healthy with no kidney diabetes or coronary artery disease. Mother Family Medical History: Coronary Artery Disease (CAD), Diabetes Mellitus Medications and Allergies Home Medications Medication Instructions Recorded Confirmed Type Acetaminophen Tab [Tylenol] 650 mg PO Q6H PRN 11/04/19 08/04/20 History Cholecalciferol [Vitamin D3 (25 1,000 unit PO DAILY 11/04/19 08/04/20 History Mcg = 1000 Iu)] Folic Acid 0.4 mg PO DAILY 11/04/19 08/04/20 History Calcium Acetate [Phoslo] 667 mg PO AC-TID 08/04/20 08/04/20 History Clotrimazole/Betamethasone Dip 1 applic TOPICAL BID 08/04/20 08/04/20 History [Lotrisone Cream] Allergies Allergy/AdvReac Type Severity Reaction Status Date / Time No Known Allergies Allergy Verified 08/04/20 09:05 Physical Exam Vitals: Vital Signs Temp Pulse Pulse Resp BP BP Pulse Ox 08/04/20 10:01 98.1 F 08/04/20 10:00 97.6 F 68 16 127/74 94 L 08/04/20 09:08 71 18 108/50 97 08/04/20 08:10 98.2 F 08/04/20 08:00 70 18 118/72 98 08/04/20 05:13 97.5 F L 08/04/20 05:00 61 18 112/65 99 08/04/20 03:30 64 18 149/78 100 08/04/20 02:39 94.5 F L 08/04/20 02:34 83 18 133/69 97 Intake and Output 08/03/20 08/04/20 08/04/20 22:59 06:59 14:59 Other: Weight 94.801 kg 95.4 kg Results CBC & Chem 7: 08/04/20 03:16 08/04/20 03:16 Labs: Abnormal Lab Results - Last 24 Hours (Table) 08/04/20 08/04/20 08/04/20 Range/Units 02:28 02:48 03:04 RBC (4.30-5.90) m/uL Hgb (13.0-17.5) gm/dL Hct (39.0-53.0) % Lymphocytes # (Manual) (1.0-4.8) k/uL PT (9.0-12.0) sec INR (<1.2) APTT (22.0-30.0) sec Sodium (137-145) mmol/L Chloride (98-107) mmol/L BUN (9-20) mg/dL Creatinine (0.66-1.25) mg/dL Glucose (74-99) mg/dL POC Glucose (mg/dL) <20 L 46 L <20 L (75-99) mg/dL Plasma Lactic Acid Gilberto (0.7-2.0) mmol/L Calcium (8.4-10.2) mg/dL Troponin I (0.000-0.034) ng/mL Total Protein (6.3-8.2) g/dL Albumin (3.5-5.0) g/dL Urine Protein (Negative) Urine Blood (Negative) Ur Leukocyte Esterase (Negative) Urine RBC (0-5) /hpf Urine WBC (0-5) /hpf Urine Bacteria (None) /hpf Urine Opiates Screen (NotDetected) Ur Oxycodone Screen (NotDetected) 08/04/20 08/04/20 08/04/20 Range/Units 03:10 03:16 03:16 RBC 3.58 L (4.30-5.90) m/uL Hgb 11.0 L (13.0-17.5) gm/dL Hct 34.8 L (39.0-53.0) % Lymphocytes # (Manual) 0.78 L (1.0-4.8) k/uL PT 38.9 H (9.0-12.0) sec INR 3.9 H (<1.2) APTT 39.5 H (22.0-30.0) sec Sodium (137-145) mmol/L Chloride (98-107) mmol/L BUN (9-20) mg/dL Creatinine (0.66-1.25) mg/dL Glucose (74-99) mg/dL POC Glucose (mg/dL) 158 H (75-99) mg/dL Plasma Lactic Acid Gilberto (0.7-2.0) mmol/L Calcium (8.4-10.2) mg/dL Troponin I (0.000-0.034) ng/mL Total Protein (6.3-8.2) g/dL Albumin (3.5-5.0) g/dL Urine Protein (Negative) Urine Blood (Negative) Ur Leukocyte Esterase (Negative) Urine RBC (0-5) /hpf Urine WBC (0-5) /hpf Urine Bacteria (None) /hpf Urine Opiates Screen (NotDetected) Ur Oxycodone Screen (NotDetected) 08/04/20 08/04/20 08/04/20 Range/Units 03:16 03:16 03:16 RBC (4.30-5.90) m/uL Hgb (13.0-17.5) gm/dL Hct (39.0-53.0) % Lymphocytes # (Manual) (1.0-4.8) k/uL PT (9.0-12.0) sec INR (<1.2) APTT (22.0-30.0) sec Sodium 130 L (137-145) mmol/L Chloride 92 L (98-107) mmol/L BUN 22 H (9-20) mg/dL Creatinine 4.44 H (0.66-1.25) mg/dL Glucose 251 H (74-99) mg/dL POC Glucose (mg/dL) (75-99) mg/dL Plasma Lactic Acid Gilberto 3.2 H* (0.7-2.0) mmol/L Calcium 8.2 L (8.4-10.2) mg/dL Troponin I 0.054 H* (0.000-0.034) ng/mL Total Protein 6.2 L (6.3-8.2) g/dL Albumin 2.8 L (3.5-5.0) g/dL Urine Protein (Negative) Urine Blood (Negative) Ur Leukocyte Esterase (Negative) Urine RBC (0-5) /hpf Urine WBC (0-5) /hpf Urine Bacteria (None) /hpf Urine Opiates Screen (NotDetected) Ur Oxycodone Screen (NotDetected) 08/04/20 08/04/20 08/04/20 Range/Units 04:10 05:12 05:41 RBC (4.30-5.90) m/uL Hgb (13.0-17.5) gm/dL Hct (39.0-53.0) % Lymphocytes # (Manual) (1.0-4.8) k/uL PT (9.0-12.0) sec INR (<1.2) APTT (22.0-30.0) sec Sodium (137-145) mmol/L Chloride (98-107) mmol/L BUN (9-20) mg/dL Creatinine (0.66-1.25) mg/dL Glucose (74-99) mg/dL POC Glucose (mg/dL) 241 H 279 H (75-99) mg/dL Plasma Lactic Acid Gilberto (0.7-2.0) mmol/L Calcium (8.4-10.2) mg/dL Troponin I (0.000-0.034) ng/mL Total Protein (6.3-8.2) g/dL Albumin (3.5-5.0) g/dL Urine Protein 2+ H (Negative) Urine Blood Moderate H (Negative) Ur Leukocyte Esterase Large H (Negative) Urine RBC 8 H (0-5) /hpf Urine WBC 39 H (0-5) /hpf Urine Bacteria Rare H (None) /hpf Urine Opiates Screen Detected H (NotDetected) Ur Oxycodone Screen Detected H (NotDetected) 08/04/20 08/04/20 Range/Units 07:21 08:38 RBC (4.30-5.90) m/uL Hgb (13.0-17.5) gm/dL Hct (39.0-53.0) % Lymphocytes # (Manual) (1.0-4.8) k/uL PT (9.0-12.0) sec INR (<1.2) APTT (22.0-30.0) sec Sodium (137-145) mmol/L Chloride (98-107) mmol/L BUN (9-20) mg/dL Creatinine (0.66-1.25) mg/dL Glucose (74-99) mg/dL POC Glucose (mg/dL) 214 H (75-99) mg/dL Plasma Lactic Acid Gilberto (0.7-2.0) mmol/L Calcium (8.4-10.2) mg/dL Troponin I 0.059 H* (0.000-0.034) ng/mL Total Protein (6.3-8.2) g/dL Albumin (3.5-5.0) g/dL Urine Protein (Negative) Urine Blood (Negative) Ur Leukocyte Esterase (Negative) Urine RBC (0-5) /hpf Urine WBC (0-5) /hpf Urine Bacteria (None) /hpf Urine Opiates Screen (NotDetected) Ur Oxycodone Screen (NotDetected) Microbiology - Last 24 Hours (Table) 08/04/20 05:41 Urine Culture - Preliminary Urine,Voided Thrombosis Risk Factor Assmnt - Choose All That Apply Any of the Below Risk Factors Present?: Yes Each Factor Represents 1 point: Obesity (BMI >25) Other Risk Factors: Yes Each Risk Factor Represents 2 Points: Age 61-74 years Other congenital or acquired thrombophilia - If yes, enter type in comment: No Thrombosis Risk Factor Assessment Total Risk Factor Score: 3 Thrombosis Risk Factor Assessment Level: Moderate Risk
--- NOTE | 2020-08-04 12:14 | US ---
EXAMINATION TYPE: US carotid duplex BILAT DATE OF EXAM: 08/04/2020 COMPARISON: NONE CLINICAL HISTORY: 74-year-old male syncope TECHNIQUE: Carotid duplex ultrasound examination. Indirect Doppler criteria was utilized. FINDINGS: EXAM MEASUREMENTS: RIGHT: Peak Systolic Velocity (PSV) cm/sec ----- Right CCA: 124 ----- Right ICA: 125 ----- Right ECA: 87.1 ICA/CCA ratio: 1.01 RIGHT: End Diastole cm/sec ----- Right CCA: 18.8 ----- Right ICA: 16.2 ----- Right ECA: 20.8 LEFT: Peak Systolic Velocity (PSV) cm/sec ----- Left CCA: 118 ----- Left ICA: 103 ----- Left ECA: 125 ICA/CCA ratio: 0.87 LEFT: End Diastole cm/sec ----- Left CCA: 13.6 ----- Left ICA: 22.1 ----- Left ECA: 0.0 VERTEBRALS (direction of flow): Right Vertebral: unable to visualize Left Vertebral: Antegrade Hand Wood Sander notes: Mild plaque bilateral bifurcations. No evidence of increased velocities. No eviden ce of significant stenosis. Unable to visualize right vertebral artery at this time IMPRESSION: 1. No hemodynamically significant internal carotid artery stenosis on either side. Mild atherosclerot ic plaque at the bifurcations. 2. Unable to visualize the right vertebral artery at this time. This may be due to technical factors. Consider follow-up to ensure patency. Criteria for Assigning % of Stenosis / Diameter reduction (Estimation based on the indirect measurements of the internal carotid artery velocities (ICA PSV). 1. Normal (no stenosis)=ICA PSV < 125 cm/s: ratio < 2.0: ICA EDV<40 cm/s. 2. Less than 50% stenosis=ICA PSV < 125 cm/s: ratio < 2.0: ICA EDV<40 cm/s. 3. 50 to 69% stenosis=ICA PSV of 125 to 230 cm/s: ration 2.0 ? 4.0: ICA EDV 40-100 cm/s. 4. Greater than 70% stenosis to near occlusion= ICA PSV > 230 cm/s: ratio > 4.0: ICA EDV > 100 cm/s. 5. Near occlusion= ICA PSV velocities may be low or undetectable: variable ratio and ICA EDV. 6. Total occlusion=unable to detect flow.
[2020-08-04 12:26] LABS: Glucose,Whole Blood 62 mg/dL (75-99)
--- NOTE | 2020-08-04 12:43 | P.CRDCN ---
History of Present Illness Consult date: 08/04/20 History of present illness: CHIEF COMPLAINT: Elevated troponins HISTORY OF PRESENT ILLNESS: 74-year-old male with history of diabetes mellitus, hypertension, hyperlipidemia, and end-stage renal disease on hemodialysis who presented to the emergency room secondary to not feeling well. Patient examined this morning at the bedside. Patient states he woke up this morning and was extremely diaphoretic and was not feeling right since he called EMS. Patient was found to be hypoglycemic upon their arrival. Patient denies any shortness of breath or chest pain. 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 Patient's EKG reveals atrial fibrillation. Patient states he thinks he has a history of atrial fibrillation but there is no documented history of A. fib in the EMR. Patient's INR was also found to be elevated at 3.9. Patient is unsure if he takes blood thinners at home. Patient denies alcohol use and states he quit drinking approximately 3 years ago. Patient states he used to smoke but has not smoked in over 40 years. DIAGNOSTICS: EKG reveals atrial fibrillation. Heart rate 66 Chest xray cardiomegaly. No heart failure seen. Laboratory data: WBC 7.1. Hemoglobin 11.0. Platelet count 302. INR 3.9. Sodium 130. Potassium 3.7. BUN 22. Creatinine 4.44. Troponin 0.054. 0.059. 0.059. Current home cardiac medications include Norvasc 10 mg daily, Lipitor 40 mg daily, fenofibrate 160 mg daily, hydralazine 25 mg 3 times a day, and metoprolol 25 mg BID REVIEW OF SYSTEMS: CONSTITUTIONAL: Denies fever or chills. Reports feeling unwell this morning. HEENT: Denies blurred vision, vision changes, or eye pain. Denies hemoptysis CARDIOVASCULAR: Denies chest pain, orthopnea, PND or palpitations RESPIRATORY: No shortness of breath. GASTROINTESTINAL: Denies abdominal pain. Denies nausea or vomiting. HEMATOLOGIC: Denies bleeding disorders. GENITOURINARY: Denies any blood in urine. SKIN: Denies pruitis. Denies rash. PHYSICAL EXAM: VITAL SIGNS: Reviewed. GENERAL: Well-developed in no acute distress. HEENT: Head is normocephalic. Pupils are equal, round. Sclerae anicteric. Mucous membranes of the mouth are moist. Neck supple. No JVD or thyromegaly LUNGS: Respirations even and unlabored. Lungs essentially clear to auscultation bilaterally. HEART: Irregular rate and rhythm. S1 and S2 heard. ABDOMEN: Soft. Nondistended. Nontender. EXTREMITIES: Normal range of motion. No clubbing or cyanosis. Peripheral pulses intact. No lower extremity edema NEUROLOGIC: Awake and alert. Oriented x 2. ASSESSMENT: Persistent atrial fibrillation Chronically elevated troponins, secondary to CKD Coagulopathy, patient unsure if he takes Coumadin, LFTs within normal limits End-stage renal disease on hemodialysis Hypertension Hyperlipidemia Diabetes mellitus, type II Hypoglycemia PLAN: Patient's troponins are chronically abnormal secondary to CKD. No further intervention required No anticoagulation for atrial fibrillation at this time secondary to elevated INR. Repeat INR tomorrow morning Continue home cardiac medications Continue telemetry monitoring Obtain 2-D echo to assess cardiac structure and function Further recommendations pending patient course Nurse practitioner note has been reviewed by physician. Signing provider agrees with the documented findings, assessment, and plan of care. Past Medical History Past Medical History: Dialysis, Hyperlipidemia, Hypertension, Renal Disease, Thy roid Disorder Additional Past Medical History / Comment(s): . History of Any Multi-Drug Resistant Organisms: None Reported Past Surgical History: No Surgical Hx Reported Additional Past Surgical History / Comment(s): . Past Anesthesia/Blood Transfusion Reactions: No Reported Reaction Past Psychological History: No Psychological Hx Reported Smoking Status: Never smoker Past Alcohol Use History: None Reported Additional Past Alcohol Use History / Comment(s): patient states he used to be a heavy drinker but quit many years ago Past Drug Use History: None Reported - Past Family History Father Family Medical History: Myocardial Infarction (AR) Additional Family Medical History / Comment(s): patient has 3 brothers and one sister is relatively healthy has chronic back problems patient has 5 children that are healthy with no kidney diabetes or coronary artery disease. Mother Family Medical History: Coronary Artery Disease (CAD), Diabetes Mellitus Medications and Allergies Home Medications Medication Instructions Recorded Confirmed Type Acetaminophen Tab [Tylenol] 650 mg PO Q6H PRN 11/04/19 08/04/20 History Cholecalciferol [Vitamin D3 (25 1,000 unit PO DAILY 11/04/19 08/04/20 History Mcg = 1000 Iu)] Folic Acid 0.4 mg PO DAILY 11/04/19 08/04/20 History Calcium Acetate [Phoslo] 667 mg PO AC-TID 08/04/20 08/04/20 History Clotrimazole/Betamethasone Dip 1 applic TOPICAL BID 08/04/20 08/04/20 History [Lotrisone Cream] Allergies Allergy/AdvReac Type Severity Reaction Status Date / Time No Known Allergies Allergy Verified 08/04/20 09:05 Physical Exam Vitals: Vital Signs Temp Pulse Pulse Resp BP BP Pulse Ox 08/04/20 10:01 98.1 F 08/04/20 10:00 97.6 F 68 16 127/74 94 L 08/04/20 09:08 71 18 108/50 97 08/04/20 08:10 98.2 F 08/04/20 08:00 70 18 118/72 98 08/04/20 05:13 97.5 F L 08/04/20 05:00 61 18 112/65 99 08/04/20 03:30 64 18 149/78 100 08/04/20 02:39 94.5 F L 08/04/20 02:34 83 18 133/69 97 Intake and Output 08/03/20 08/04/20 08/04/20 22:59 06:59 14:59 Other: Weight 94.801 kg 95.4 kg Results 08/04/20 03:16 08/04/20 03:16 Cardiac Enzymes 08/04/20 08/04/20 08/04/20 Range/Units 03:16 03:16 08:38 AST 29 (17-59) U/L Troponin I 0.054 H* 0.059 H* (0.000-0.034) ng/mL 08/04/20 Range/Units 11:20 AST (17-59) U/L Troponin I 0.059 H* (0.000-0.034) ng/mL Coagulation 08/04/20 Range/Units 03:16 PT 38.9 H (9.0-12.0) sec APTT 39.5 H (22.0-30.0) sec CBC 08/04/20 Range/Units 03:16 WBC 7.1 (3.8-10.6) k/uL RBC 3.58 L (4.30-5.90) m/uL Hgb 11.0 L (13.0-17.5) gm/dL Hct 34.8 L (39.0-53.0) % Plt Count 302 (150-450) k/uL Comprehensive Metabolic Panel 08/04/20 Range/Units 03:16 Sodium 130 L (137-145) mmol/L Potassium 3.7 (3.5-5.1) mmol/L Chloride 92 L (98-107) mmol/L Carbon Dioxide 27 (22-30) mmol/L BUN 22 H (9-20) mg/dL Creatinine 4.44 H (0.66-1.25) mg/dL Glucose 251 H (74-99) mg/dL Calcium 8.2 L (8.4-10.2) mg/dL AST 29 (17-59) U/L ALT 6 (4-49) U/L Alkaline Phosphatase 110 (38-126) U/L Total Protein 6.2 L (6.3-8.2) g/dL Albumin 2.8 L (3.5-5.0) g/dL Current Medications Generic Name Dose Route Start Last Admin Trade Name Freq PRN Reason Stop Dose Admin Acetaminophen 650 mg 08/04/20 08:24 Tylenol Tab PO Q6H PRN Pain Amlodipine Besylate 10 mg 08/04/20 09:00 08/04/20 12:07 Norvasc PO Not Given DAILY [facility] Atorvastatin Calcium 40 mg 08/04/20 21:00 Lipitor PO HS [facility] Calcium Acetate 667 mg 08/04/20 12:30 Phoslo PO AC-TID [facility] Cholecalciferol 1,000 unit 08/05/20 09:00 Vitamin D3 (25 Mcg = 1000 Iu) PO DAILY [facility] Fenofibrate 160 mg 08/04/20 09:00 08/04/20 12:07 Lofibra PO Not Given DAILY [facility] Folic Acid 1 mg 08/04/20 09:00 08/04/20 12:07 Folic Acid PO Not Given DAILY [facility] Furosemide 80 mg 08/04/20 09:00 08/04/20 12:07 Lasix PO Not Given BID@0900,1600 [facility] Heparin Sodium (Porcine) 5,000 unit 08/04/20 21:00 Heparin SQ Q12HR [facility] Hydralazine HCl 25 mg 08/04/20 09:00 08/04/20 12:07 Apresoline PO Not Given TID [facility] Sodium Chloride 1,000 mls @ 20 mls/hr 08/04/20 08:30 08/04/20 09:30 Saline 0.9% IV 20 mls/hr .Q24H [facility] Administration Ceftriaxone Sodium 1 gm/ 50 mls @ 100 mls/hr 08/05/20 09:00 Sodium Chloride IVPB Q24HR [facility] Levofloxacin 250 mg 08/05/20 09:00 Levaquin PO DAILY [facility] Levothyroxine Sodium 150 mcg 08/04/20 09:00 08/04/20 12:07 Synthroid PO Not Given DAILY@0630 [facility] Metoprolol Tartrate 25 mg 08/04/20 09:00 08/04/20 12:07 Lopressor PO Not Given BID [facility] Naloxone HCl 0.2 mg 08/04/20 08:22 Narcan IV Q2M PRN Opioid Reversal Oxycodone HCl 5 mg 08/04/20 08:24 Oxyir PO Q4H PRN Pain Pantoprazole Sodium 40 mg 08/04/20 09:00 08/04/20 12:08 Protonix PO Not Given DAILY@0730 [facility] Polyethylene Glycol 17 gm 08/04/20 09:00 08/04/20 12:08 Miralax PO Not Given DAILY [facility] Tamsulosin HCl 0.4 mg 08/04/20 09:00 08/04/20 12:08 Flomax PO Not Given DAILY [facility] Intake and Output 08/03/20 08/04/20 08/04/20 22:59 06:59 14:59 Other: Weight 94.801 kg 95.4 kg Patient Weight 08/05/20 06:59 Weight 95.4 kg 08/04/20 03:16 08/04/20 03:16
[2020-08-04 12:46] LABS: Glucose,Whole Blood 65 mg/dL (75-99)
[2020-08-04 13:02] LABS: Glucose,Whole Blood 63 mg/dL (75-99)
[2020-08-04 13:08] LABS: Glucose,Whole Blood 50 mg/dL (75-99)
[2020-08-04 13:27] LABS: Glucose,Whole Blood 145 mg/dL (75-99)
[2020-08-04] MEDS: CALCIUM ACETATE 667 MG TAB PO SCH ×2 (13:29→17:16)
[2020-08-04 14:01] LABS: Glucose,Whole Blood 64 mg/dL (75-99)
[2020-08-04 14:10] LABS: Glucose,Whole Blood 332 mg/dL (75-99)
[2020-08-04] MEDS ORDERED: DEXTROSE 5% IN WATER 1,000 ML IV ONE (14:15)
[2020-08-04] MEDS ORDERED: levETIRAcetam IV 1,000 MG in SALINE 1 100ML.BAG IVPB STA (14:21)
[2020-08-04 14:45] LABS: Glucose,Whole Blood 254 mg/dL (75-99)
[2020-08-04] MEDS: GLUCAGON 1 MG/ML VIAL IVP STA (14:48)
[2020-08-04 15:05] LABS: Glucose,Whole Blood 279 mg/dL (75-99)
[2020-08-04 15:35] LABS: Glucose,Whole Blood 220 mg/dL (75-99)
[2020-08-04 16:09] LABS: Glucose,Whole Blood 218 mg/dL (75-99)
--- NOTE | 2020-08-04 17:14 | P.NPCON ---
History of Present Illness - Reason for Consult Consult date: 08/04/20 end stage renal disease - Chief Complaint Altered mental status - History of Present Illness 74-year-old -[place] gentleman coming to the hospital with the above complaints. When the EMS arrived blood sugars were 41 and he had persistent hypo-glycemia while in the hospital. Currently on D5 water. He has ESRD secondary to diabetic nephropathy, MWF schedule at [facility]. Last dialysis was Thursday. He has right jugular permacath. For persistent hypoglycemia he was transferred to ICU. Review of Systems Constitutional: Reports as per HPI Past Medical History Past Medical History: Dialysis, Hyperlipidemia, Hypertension, Renal Disease, Thyroid Disorder Additional Past Medical History / Comment(s): . History of Any Multi-Drug Resistant Organisms: None Reported Past Surgical History: No Surgical Hx Reported Additional Past Surgical History / Comment(s): . Past Anesthesia/Blood Transfusion Reactions: No Reported Reaction Past Psychological History: No Psychological Hx Reported Smoking Status: Never smoker Past Alcohol Use History: None Reported Additional Past Alcohol Use History / Comment(s): patient states he used to be a heavy drinker but quit many years ago Past Drug Use History: None Reported - Past Family History Father Family Medical History: Myocardial Infarction (DC) Additional Family Medical History / Comment(s): patient has 3 brothers and one sister is relatively healthy has chronic back problems patient has 5 children that are healthy with no kidney diabetes or coronary artery disease. Mother Family Medical History: Coronary Artery Disease (CAD), Diabetes Mellitus Medications and Allergies Home Medications Medication Instructions Recorded Confirmed Type Acetaminophen Tab [Tylenol] 650 mg PO Q6H PRN 11/04/19 08/04/20 History Cholecalciferol [Vitamin D3 (25 1,000 unit PO DAILY 11/04/19 08/04/20 History Mcg = 1000 Iu)] Folic Acid 0.4 mg PO DAILY 11/04/19 08/04/20 History Calcium Acetate [Phoslo] 667 mg PO AC-TID 08/04/20 08/04/20 History Clotrimazole/Betamethasone Dip 1 applic TOPICAL BID 08/04/20 08/04/20 History [Lotrisone Cream] Allergies Allergy/AdvReac Type Severity Reaction Status Date / Time No Known Allergies Allergy Verified 08/04/20 09:05 Physical Exam Vitals: Vital Signs Temp Pulse Pulse Resp BP BP Pulse Ox 08/04/20 16:00 59 L 12 136/58 94 L 08/04/20 15:01 72 18 08/04/20 12:00 97.6 F 72 16 132/55 96 08/04/20 10:01 98.1 F 08/04/20 10:00 97.6 F 68 16 127/74 94 L 08/04/20 09:08 71 18 108/50 97 08/04/20 08:10 98.2 F 08/04/20 08:00 70 18 118/72 98 08/04/20 05:13 97.5 F L 08/04/20 05:00 61 18 112/65 99 08/04/20 03:30 64 18 149/78 100 08/04/20 02:39 94.5 F L 08/04/20 02:34 83 18 133/69 97 Intake and Output 08/04/20 08/04/20 08/04/20 06:59 14:59 22:59 Intake Total 10 25 Output Total 0 Balance 10 25 Intake: IV 10 Invasive Line 2 10 Intake, IV Titration 25 Amount Dextrose 5% in Water 1, 25 000 ml @ 75 mls/hr IV . [id number] [facility] Rx#:[id number] Output: Urine 0 Other: Weight 94.801 kg 95.4 kg No acute distress S1-S2 heard Lungs clear Abdomen soft Right Jugular permacath No edema Results - Lab Results Most recent lab results Calcium 8.2 mg/dL (8.4-10.2) L 08/04/20 03:16 08/04/20 03:16 08/04/20 03:16 Assessment and Plan Assessment: #1 persistent hypoglycemia secondary to insulin, decrease clearance with ESRD. Rule out adrenal insufficiency. #2 ESRD, MWF schedule via right jugular permacath. 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 #2 if blood sugars persistently more than 200 discontinue D5 water. #3 next hemodialysis Thursday #4 ESRD medications #5 check random cortisol.
[2020-08-04] MEDS: SODIUM CHLORIDE 0.9% 1,000 ML IV SCH (17:28)
[2020-08-04 17:56] LABS: Glucose,Whole Blood 195 mg/dL (75-99)
[2020-08-04 20:00] LABS: Glucose,Whole Blood 202 mg/dL (75-99)
[2020-08-04] MEDS: ATORVASTATIN 40 MG TAB PO SCH (21:11)
[2020-08-04] MEDS: HEPARIN SODIUM,PORCINE 5,000 UNIT/ML 1 ML VIAL SQ SCH (21:11)
[2020-08-04] MEDS: INSULIN ASPART (NovoLOG) 100 UNIT/ML VIAL SQ SCH (21:11)
[2020-08-04 21:55] LABS: Glucose,Whole Blood 140 mg/dL (75-99)
[2020-08-04 23:55] LABS: Glucose,Whole Blood 95 mg/dL (75-99)
[2020-08-05 01:56] LABS: Glucose,Whole Blood 128 mg/dL (75-99)
[2020-08-05 04:58] LABS: ALT <6 U/L (4-49); AST 25 U/L (17-59); African American GFR (CKD) 11 (>60 ml/min/1.73 sqM); Albumin 2.6 g/dL (3.5-5.0); Alkaline Phosphatase 94 U/L (38-126); Anion Gap 11 mmol/L; Blood Urea Nitrogen 28 mg/dL (9-20); Carbon Dioxide 27 mmol/L (22-30); Chloride 91 mmol/L (98-107); Glucose 99 mg/dL (74-99); Non-African American GFR(CKD) 9 (>60 ml/min/1.73 sqM); Potassium 4.4 mmol/L (3.5-5.1); Sodium 129 mmol/L (137-145); Total Protein 5.8 g/dL (6.3-8.2)
[2020-08-05 05:05] LABS: INR 3.4 (<1.2); Prothrombin Time 33.5 sec (9.0-12.0)
[2020-08-05 05:20] LABS: Basophils # (A) 0.1 k/uL (0-0.2); Basophils % (A) 1 %; Eosinophils # (A) 0.5 k/uL (0-0.7); Eosinophils % (A) 6 %; HCT 33.4 % (39.0-53.0); HGB 10.4 gm/dL (13.0-17.5); Hypochromasia Slight; Lymphocytes # (A) 1.3 k/uL (1.0-4.8); Lymphocytes % (A) 15 %; MCH 30.4 pg (25.0-35.0); MCHC 31.3 g/dL (31.0-37.0); MCV 97.2 fL (80.0-100.0); Mean Platelet Volume 9.6; Monocytes # (A) 0.7 k/uL (0-1.0); Monocytes % (A) 8 %; Neutrophils # (A) 5.7 k/uL (1.3-7.7); Neutrophils % (A) 68 %; Platelet Count 301 k/uL (150-450); RBC 3.43 m/uL (4.30-5.90); RDW 15.4 % (11.5-15.5); WBC 8.4 k/uL (3.8-10.6)
[2020-08-05 06:06] LABS: Glucose,Whole Blood 88 mg/dL (75-99)
[2020-08-05] MEDS: INSULIN ASPART (NovoLOG) 100 UNIT/ML VIAL SQ SCH ×4 (06:55→21:19)
[2020-08-05] MEDS: PANTOPRAZOLE 40 MG TABLET PO SCH (06:56)
[2020-08-05] MEDS: LEVOTHYROXINE 75 MCG TAB PO SCH (06:56)
[2020-08-05] MEDS: CALCIUM ACETATE 667 MG TAB PO SCH ×3 (06:56→17:32)
[2020-08-05 08:21] LABS: Glucose,Whole Blood 133 mg/dL (75-99)
[2020-08-05] MEDS: polyethylene glycoL 3350 17 GM POWD.PACK PO SCH (08:35)
[2020-08-05] MEDS: TAMSULOSIN 0.4 MG CAP.ER.24H PO SCH (08:35)
[2020-08-05] MEDS: amLODIPine 10 MG TAB PO SCH (08:36)
[2020-08-05] MEDS: CHOLECALCIFEROL 1,000 UNIT TAB PO SCH (08:36)
[2020-08-05] MEDS: hydrALAZINE HCL 25 MG TAB PO SCH ×3 (08:36→21:20)
[2020-08-05] MEDS: METOPROLOL TARTRATE 25 MG TAB PO SCH ×2 (08:36→21:20)
[2020-08-05] MEDS: HEPARIN SODIUM,PORCINE 5,000 UNIT/ML 1 ML VIAL SQ SCH ×2 (08:36→21:19)
[2020-08-05] MEDS: FOLIC ACID 1 MG TAB PO SCH (08:36)
[2020-08-05] MEDS: LEVOFLOXACIN 250 MG TAB PO SCH (08:37)
[2020-08-05] MEDS: FENOFIBRATE 160 MG TAB PO SCH (08:37)
[2020-08-05] MEDS: FUROSEMIDE 80 MG TAB PO SCH ×2 (08:37→17:33)
--- NOTE | 2020-08-05 08:38 | P.PN ---
Subjective Progress Note Date: 08/05/20 This is a 74-year-old -English gentleman patient of Dr. Vidales with a past medical history significant for end-stage renal failure on dialysis Thursday, hyperlipidemia, hypertension, hypothyroid, previous EtOH abuse. Denies smoking. Patient lives alone and family comes to see him. Patient was brought into the emergency room via EMS. When EMS arrived on scene they stated that the patient was unable to tell them what was going on he was confused and diaphoretic. Blood sugar was 41 and was given oral glucose. The patient arrived to the hospital he remained not feeling well and diaphoretic. Patient states that while he was at home he began to feel sweaty and not well so he called EMS. Patient states that he ate approximate one hour prior to taking his insulin. Patient states that he was recently discharged from the [facility] and [place] for the same symptoms. Patient decided to come to the nearest hospital because of his symptoms. Patient states that his daughter will be in this afternoon with his medication list and health problems. 96: Patient was transferred to ICU for one-on-one monitoring due to confusion and blood sugar monitoring. Patient was on Accu-Cheks every hour which has resolved to Accu-Cheks before meals at bedtime. Patient is on a sliding scale. At this time patient is sitting up in bed resting comfortably in no acute distress. Patient is able to answer questions appropriately. Patient states that he takes NovoLog 70 3036 units in the morning and 26 units in the evening. Patient is complaining of abdominal pain and discomfort. Denies any nausea vomiting diarrhea or constipation. Patient has been afebrile, pulse rate 58, respirations 25, blood pressure 169/78, pulse ox 98% on room air. W BC 8.4, hemoglobin 10.4, BUN 28, creatinine 5.61. Patient will be scheduled for hemodialysis on Thursday. Review Of Systems: Constitutional: No fever, no chills, no night sweats. No weight change. Reports weakness, no fatigue or lethargy. No daytime sleepiness. Reports diaphoresis resolved EENT: No headache. No blurred vision or double vision, no loss of vision. No loss of Hearing, no ringing in the ears, no dizziness. No nasal drainage or congestion. No epistaxis. No sore throat. Lungs: No shortness of breath, cough, no sputum production. No wheezing. Cardiovascular: No chest pain, no lower extremity edema. No palpitations. No paroxysmal nocturnal dyspnea. No orthopnea. No lightheadedness or dizziness. No syncopal episodes. Abdominal: Reports abdominal discomfort. No nausea, vomiting. no diarrhea. No constipation. No bloody or tarry stools. no loss of appetite. Genitourinary: No dysuria, increased frequency, urgency. No urinary retention. Musculoskeletal: No myalgias. No muscle weakness, no gait dysfunction, no frequent falls. No back pain. No neck pain. Integumentary: No wounds, no lesions. No rash or pruritus. No unusual bruising. No change in hair or nails. Neurologic: No aphasia. No facial droop. No change in mentation. No head injury. No headache. No paralysis. No paresthesia. Psychiatric: No depression. No anxiety. No mood swings. Endocrine: No abnormal blood sugars. No weight change. No excessive sweating or thirst. Physical exam: General Appearance: Alert, cooperative, no distress, 74-year-old male appears stated age. Neck HEENT: Supple, no lymphadenopathy, no thyroid enlargement, no carotid bruits. Lungs: Clear to auscultation without crackles or wheezes no rhonchi, no deformity. Chest Wall: Dialysis catheter left upper chest wall, Chest wall normal expansion with deep inspiration no tenderness and no deformity was found on exam, no co stochondral pain or discomfort. Heart: Regular rate and rhythm, S1, S2 normal, no murmur, rub or gallop. Back: Symmetric, no curvature, ROM normal, no CVA tenderness. Abdomen: Soft, non-tender, no rebound or rigidity, no hepatosplenomegaly. Extremities: Extremities normal, atraumatic, no cyanosis, 1+ bilateral lower extremity edema. Pulses: 2+ and symmetric. Skin: Skin color, texture, tugor normal, no rashes or lesions. Neurologic: Alert oriented x3 cranial nerves II through XII intact, no motor deficit, no abnormal balance or gait Assessment/plan: 1. Hypoglycemia with altered mental status. Continue with Accu-Cheks before meals at bedtime, NovoLog 70/30 10 units in the morning and 6 units in the evening with meals, continue sliding scale as needed. carotid ultrasound impression no hemodynamically significant internal carotid artery stenosis on either side. Mild arthrosclerosis plaque at the bifurcations. Unable to visualize the right vertebral artery at this time. 2. UTI with history of BPH self-catheterization. Levaquin 250 mg by mouth daily Rocephin 1 g every 24 hours. 3. Diabetes mellitus with complications. Continue with Accu-Cheks before meals at bedtime, NovoLog 70 3010 units in the morning 6 units in the evening continue sliding scale. 4. Elevated troponin. Consult cardiology appreciated, echocardiogram impression: EF 55-60%, mild mitral regurgitation, mild to moderate tricuspid regurgitation. Mild to moderate pulmonary hypertension. Right ventricular systolic pressure measured with Doppler 43.4-9 m mercury 5. End-stage renal failure with dialysis Thursday. PhosLo 667 mg by mouth before meals 3 times a day, folate acid 1 mg by mouth daily. Nephrology consult appreciated. dialysis on Thursday. 6. Hypertension. Lopressor 25 mg twice a day, hydralazine 25 mg 3 times a day, Lasix 80 mg by mouth twice a day, Norvasc 10 mg by mouth daily 7. Hypothyroidism. Levothyroxine 150 g daily 8. Hyperlipidemia. Lipitor 40 mg by mouth at bedtime 9. BPH. Flomax 0.4 mg by mouth daily 10. Abdominal pain. Lipase ordered, abdominal ultrasound ordered. 11. DVT prophylaxis heparin 5000 units subcu 12. GI prophylaxis Protonix 40 mg daily by mouth CODE STATUS: Full code Discharge plan: A minimum of 2 nights day, possible to be determined. Impression and plan of care have been directed as dictated by the signing physician. Mei Yi nurse practitioner acting as scribe for signing physician. Objective - Vital Signs Vital signs: Vital Signs Temp 97.8 F 08/05/20 04:00 Pulse 56 L 08/05/20 07:00 Resp 20 08/05/20 07:00 BP 144/68 08/05/20 07:00 Pulse Ox 99 08/05/20 07:00 Intake & Output 08/04/20 08/05/20 08/05/20 18:59 06:59 18:59 Intake Total 80 110 10 Output Total 20 30 5 Balance 60 80 5 Weight 95.4 kg 93.7 kg Intake: IV 10 Invasive Line 2 10 Intake, IV Titration 70 110 10 Amount Dextrose 5% in Water 1, 50 000 ml @ 75 mls/hr IV . [id number] [facility] Rx#:[id number] Sodium Chloride 0.9% 1, 20 110 10 000 ml @ 10 mls/hr IV . Q24H [facility] Rx#:[id number] Output: Urine 20 30 5 Other: Voiding Method Indwelling Catheter Indwelling Catheter Indwelling Catheter - Labs CBC & Chem 7: 08/05/20 04:01 08/05/20 04:01 Labs: Abnormal Lab Results - Last 24 Hours (Table) 08/04/20 08/04/20 08/04/20 Range/Units 08:38 11:20 12:25 RBC (4.30-5.90) m/uL Hgb (13.0-17.5) gm/dL Hct (39.0-53.0) % PT (9.0-12.0) sec INR (<1.2) Sodium (137-145) mmol/L Chloride (98-107) mmol/L BUN (9-20) mg/dL Creatinine (0.66-1.25) mg/dL POC Glucose (mg/dL) 62 L (75-99) mg/dL Calcium (8.4-10.2) mg/dL Troponin I 0.059 H* 0.059 H* (0.000-0.034) ng/mL Total Protein (6.3-8.2) g/dL Albumin (3.5-5.0) g/dL 08/04/20 08/04/20 08/04/20 Range/Units 12:45 13:00 13:07 RBC (4.30-5.90) m/uL Hgb (13.0-17.5) gm/dL Hct (39.0-53.0) % PT (9.0-12.0) sec INR (<1.2) Sodium (137-145) mmol/L Chloride (98-107) mmol/L BUN (9-20) mg/dL Creatinine (0.66-1.25) mg/dL POC Glucose (mg/dL) 65 L 63 L 50 L (75-99) mg/dL Calcium (8.4-10.2) mg/dL Troponin I (0.000-0.034) ng/mL Total Protein (6.3-8.2) g/dL Albumin (3.5-5.0) g/dL 08/04/20 08/04/20 08/04/20 Range/Units 13:26 13:59 14:09 RBC (4.30-5.90) m/uL Hgb (13.0-17.5) gm/dL Hct (39.0-53.0) % PT (9.0-12.0) sec INR (<1.2) Sodium (137-145) mmol/L Chloride (98-107) mmol/L BUN (9-20) mg/dL Creatinine (0.66-1.25) mg/dL POC Glucose (mg/dL) 145 H 64 L 332 H (75-99) mg/dL Calcium (8.4-10.2) mg/dL Troponin I (0.000-0.034) ng/mL Total Protein (6.3-8.2) g/dL Albumin (3.5-5.0) g/dL 08/04/20 08/04/20 08/04/20 Range/Units 14:25 15:04 15:33 RBC (4.30-5.90) m/uL Hgb (13.0-17.5) gm/dL Hct (39.0-53.0) % PT (9.0-12.0) sec INR (<1.2) Sodium (137-145) mmol/L Chloride (98-107) mmol/L BUN (9-20) mg/dL Creatinine (0.66-1.25) mg/dL POC Glucose (mg/dL) 254 H 279 H 220 H (75-99) mg/dL Calcium (8.4-10.2) mg/dL Troponin I (0.000-0.034) ng/mL Total Protein (6.3-8.2) g/dL Albumin (3.5-5.0) g/dL 08/04/20 08/04/20 08/04/20 Range/Units 16:07 17:54 19:58 RBC (4.30-5.90) m/uL Hgb (13.0-17.5) gm/dL Hct (39.0-53.0) % PT (9.0-12.0) sec INR (<1.2) Sodium (137-145) mmol/L Chloride (98-107) mmol/L BUN (9-20) mg/dL Creatinine (0.66-1.25) mg/dL POC Glucose (mg/dL) 218 H 195 H 202 H (75-99) mg/dL Calcium (8.4-10.2) mg/dL Troponin I (0.000-0.034) ng/mL Total Protein (6.3-8.2) g/dL Albumin (3.5-5.0) g/dL 08/04/20 08/05/20 08/05/20 Range/Units 21:54 01:54 04:01 RBC 3.43 L (4.30-5.90) m/uL Hgb 10.4 L (13.0-17.5) gm/dL Hct 33.4 L (39.0-53.0) % PT (9.0-12.0) sec INR (<1.2) Sodium (137-145) mmol/L Chloride (98-107) mmol/L BUN (9-20) mg/dL Creatinine (0.66-1.25) mg/dL POC Glucose (mg/dL) 140 H 128 H (75-99) mg/dL Calcium (8.4-10.2) mg/dL Troponin I (0.000-0.034) ng/mL Total Protein (6.3-8.2) g/dL Albumin (3.5-5.0) g/dL 08/05/20 08/05/20 08/05/20 Range/Units 04:01 04:01 08:19 RBC (4.30-5.90) m/uL Hgb (13.0-17.5) gm/dL Hct (39.0-53.0) % PT 33.5 H (9.0-12.0) sec INR 3.4 H (<1.2) Sodium 129 L (137-145) mmol/L Chloride 91 L (98-107) mmol/L BUN 28 H (9-20) mg/dL Creatinine 5.61 H (0.66-1.25) mg/dL POC Glucose (mg/dL) 133 H (75-99) mg/dL Calcium 8.0 L (8.4-10.2) mg/dL Troponin I (0.000-0.034) ng/mL Total Protein 5.8 L (6.3-8.2) g/dL Albumin 2.6 L (3.5-5.0) g/dL Microbiology - Last 24 Hours (Table) 08/04/20 03:38 Blood Culture - Preliminary Blood No Growth after 24 hours 08/04/20 05:41 Urine Culture - Preliminary Urine,Voided
--- NOTE | 2020-08-05 09:50 | ECHOF ---
Referral Reason:syncope MEASUREMENTS -------- HEIGHT: 188.0 cm WEIGHT: 94.8 kg BP: 127/74 IVSd: 2.0 cm (0.6 - 1.1) LVIDd: 4.1 cm (3.9 - 5.3) LVPWd: 1.3 cm (0.6 - 1.1) EDV(Teich): 76 ml IVSs: 2.2 cm LVIDs: 2.9 cm LVPWs: 1.8 cm %IVS Thck: 13 % ESV(Teich): 32 ml EF(Teich): 58 % %FS: 31 % SV(Teich): 44 ml RVIDd: 3.3 cm (< 3.3) LALs A4C: 6.7 cm LAAs A4C: 23.1 cm LAESV A-L A4C: 67 ml LAESV MOD A4C: 65 ml LALs A2C: 7.0 cm LAAs A2C: 28.5 cm LAESV A-L A2C: 98 ml LAESV MOD A2C: 95 ml LAESV(A-L): 83 ml LAESV Index (A-L): 37.38 ml/m Ao Diam: 3.3 cm (2.0 - 3.7) AV Cusp: 1.9 cm (1.5 - 2.6) EPSS: 0.3 cm LVOT Vmax: 0.98 m/s LVOT maxP.83 mmHg AV Vmax: 1.19 m/s AV maxP.71 mmHg TR Vmax: 3.10 m/s TR maxP.42 mmHg RAP: 5.00 mmHg RVSP: 43.42 mmHg MV EF SLOPE: 112.84 mm/s (70 - 150) MV EXCURSION: 19.91 mm (> 18.000) FINDINGS -------- This was a technically adequate study. The left ventricular size is normal. There is moderate concentric left ventricular hypertrophy. O verall left ventricular systolic function is normal with, an EF between 55 - 60 %. The LV end diast olic pressure is elevated {E/E'}. The right ventricle is normal in size. LA is moderately dilated 34-39 ml/m2 The right atrial size is normal. Interatrial and interventricular septum intact. The aortic valve is trileaflet and appears structurally normal. There is no evidence of aortic regu rgitation. There is no evidence of aortic stenosis. Mild mitral regurgitation is present. [id number] tricuspid regurgitation present. There is mild to moderate pulmonary hypertension. The right ventricular systolic pressure, as measured by Doppler, is 43.42mmHg. There is no pulmonic regurgitation present. The aortic root size is normal. IVC Not well visulized. There is no pericardial effusion. CONCLUSIONS -------- 1. The left ventricular size is normal. 2. There is moderate concentric left ventricular hypertrophy. 3. Overall left ventricular systolic function is normal with, an EF between 55 - 60 %. 4. The LV end diastolic pressure is elevated {E/E'}. 5. LA is moderately dilated 34-39 ml/m2 6. Mild mitral regurgitation is present. 7. [id number] tricuspid regurgitation present. 8. There is mild to moderate pulmonary hypertension. 9. The right ventricular systolic pressure, as measured by Doppler, is 43.42mmHg. DIETITIAN TEACHER: Georgie Haro RDCS
--- NOTE | 2020-08-05 10:05 | P.PN ---
Subjective Progress Note Date: 08/05/20 Follow-up for ESRD. Currently off D5 water, blood sugars stable. Objective - Vital Signs Vital signs: Vital Signs Temp 97.9 F 08/05/20 08:00 Pulse 72 08/05/20 09:00 Resp 20 08/05/20 09:00 BP 134/75 08/05/20 09:00 Pulse Ox 97 08/05/20 09:00 Intake & Output 08/04/20 08/05/20 08/05/20 18:59 06:59 18:59 Intake Total 80 110 30 Output Total 20 30 10 Balance 60 80 20 Weight 95.4 kg 93.7 kg Intake: IV 10 Invasive Line 2 10 Intake, IV Titration 70 110 30 Amount Dextrose 5% in Water 1, 50 000 ml @ 75 mls/hr IV . [id number] ONE Rx#:[id number] Sodium Chloride 0.9% 1, 20 110 30 000 ml @ 10 mls/hr IV . Q24H [facility] Rx#:[id number] Output: Urine 20 30 10 Other: Voiding Method Indwelling Catheter Indwelling Catheter Indwelling Catheter - Exam No acute distress S1-S2 heard Lungs clear Abdomen soft No edema right jugular permacath - Labs CBC & Chem 7: 08/05/20 04:01 08/05/20 04:01 Labs: Abnormal Lab Results - Last 24 Hours (Table) 08/04/20 08/04/20 08/04/20 Range/Units 11:20 12:25 12:45 RBC (4.30-5.90) m/uL Hgb (13.0-17.5) gm/dL Hct (39.0-53.0) % PT (9.0-12.0) sec INR (<1.2) Sodium (137-145) mmol/L Chloride (98-107) mmol/L BUN (9-20) mg/dL Creatinine (0.66-1.25) mg/dL POC Glucose (mg/dL) 62 L 65 L (75-99) mg/dL Calcium (8.4-10.2) mg/dL Troponin I 0.059 H* (0.000-0.034) ng/mL Total Protein (6.3-8.2) g/dL Albumin (3.5-5.0) g/dL 08/04/20 08/04/2020 Range/Units 13:00 13:07 13:26 RBC (4.30-5.90) m/uL Hgb (13.0-17.5) gm/dL Hct (39.0-53.0) % PT (9.0-12.0) sec INR (<1.2) Sodium (137-145) mmol/L Chloride (98-107) mmol/L BUN (9-20) mg/dL Creatinine (0.66-1.25) mg/dL POC Glucose (mg/dL) 63 L 50 L 145 H (75-99) mg/dL Calcium (8.4-10.2) mg/dL Troponin I (0.000-0.034) ng/mL Total Protein (6.3-8.2) g/dL Albumin (3.5-5.0) g/dL 08/04/20 08/04/20 08/04/20 Range/Units 13:59 14:09 14:25 RBC (4.30-5.90) m/uL Hgb (13.0-17.5) gm/dL Hct (39.0-53.0) % PT (9.0-12.0) sec INR (<1.2) Sodium (137-145) mmol/L Chloride (98-107) mmol/L BUN (9-20) mg/dL Creatinine (0.66-1.25) mg/dL POC Glucose (mg/dL) 64 L 332 H 254 H (75-99) mg/dL Calcium (8.4-10.2) mg/dL Troponin I (0.000-0.034) ng/mL Total Protein (6.3-8.2) g/dL Albumin (3.5-5.0) g/dL 08/04/20 08/04/20 08/04/20 Range/Units 15:04 15:33 16:07 RBC (4.30-5.90) m/uL Hgb (13.0-17.5) gm/dL Hct (39.0-53.0) % PT (9.0-12.0) sec INR (<1.2) Sodium (137-145) mmol/L Chloride (98-107) mmol/L BUN (9-20) mg/dL Creatinine (0.66-1.25) mg/dL POC Glucose (mg/dL) 279 H 220 H 218 H (75-99) mg/dL Calcium (8.4-10.2) mg/dL Troponin I (0.000-0.034) ng/mL Total Protein (6.3-8.2) g/dL Albumin (3.5-5.0) g/dL 08/04/20 08/04/20 08/04/20 Range/Units 17:54 19:58 21:54 RBC (4.30-5.90) m/uL Hgb (13.0-17.5) gm/dL Hct (39.0-53.0) % PT (9.0-12.0) sec INR (<1.2) Sodium (137-145) mmol/L Chloride (98-107) mmol/L BUN (9-20) mg/dL Creatinine (0.66-1.25) mg/dL POC Glucose (mg/dL) 195 H 202 H 140 H (75-99) mg/dL Calcium (8.4-10.2) mg/dL Troponin I (0.000-0.034) ng/mL Total Protein (6.3-8.2) g/dL Albumin (3.5-5.0) g/dL 08/05/20 08/05/20 08/05/20 Range/Units 01:54 04:01 04:01 RBC 3.43 L (4.30-5.90) m/uL Hgb 10.4 L (13.0-17.5) gm/dL Hct 33.4 L (39.0-53.0) % PT (9.0-12.0) sec INR (<1.2) Sodium 129 L (137-145) mmol/L Chloride 91 L (98-107) mmol/L BUN 28 H (9-20) mg/dL Creatinine 5.61 H (0.66-1.25) mg/dL POC Glucose (mg/dL) 128 H (75-99) mg/dL Calcium 8.0 L (8.4-10.2) mg/dL Troponin I (0.000-0.034) ng/mL Total Protein 5.8 L (6.3-8.2) g/dL Albumin 2.6 L (3.5-5.0) g/dL 08/05/20 08/05/20 Range/Units 04:01 08:19 RBC (4.30-5.90) m/uL Hgb (13.0-17.5) gm/dL Hct (39.0-53.0) % PT 33.5 H (9.0-12.0) sec INR 3.4 H (<1.2) Sodium (137-145) mmol/L Chloride (98-107) mmol/L BUN (9-20) mg/dL Creatinine (0.66-1.25) mg/dL POC Glucose (mg/dL) 133 H (75-99) mg/dL Calcium (8.4-10.2) mg/dL Troponin I (0.000-0.034) ng/mL Total Protein (6.3-8.2) g/dL Albumin (3.5-5.0) g/dL Microbiology - Last 24 Hours (Table) 08/04/20 03:38 Blood Culture - Preliminary Blood No Growth after 24 hours 08/04/20 05:41 Urine Culture - Preliminary Urine,Voided Assessment and Plan Assessment: #1 persistent hypoglycemia secondary to insulin, decrease clearance with ESRD. Random cortisol within normal range. #2 ESRD, MWF schedule via right jugular permacath. 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 #2 hemodialysis tomorrow as per outpatient schedule. #3 ESRD medications
--- NOTE | 2020-08-05 10:20 | PN ---
PROGRESS NOTE Lloyd is a 74-year-old gentleman who is admitted to the hospital with coagulopathy, persistent atrial fibrillation, troponin elevation, hypertension, has end-stage renal disease on hemodialysis. On exam today, patient remains in atrial fibrillation with controlled ventricular rate. The patient was transferred to ICU yesterday apparently because he became hypoglycemic and had an episode of seizure. PHYSICAL EXAMINATION: On exam he appears comfortable at rest. Heart rate is 50 beats per minute, blood pressure is 140/60, respiratory rate is 18. O2 saturation is 99% on room air. Chest exam reveals diminished air entry at the bases. Heart exam reveals first and second heart sounds. No gallop. Exam of extremities did not reveal any edema. Peripheral pulses are felt. LABORATORY DATA: Patient's INR today is 3.4. ASSESSMENT: 1. Permanent atrial fibrillation with controlled ventricular rate. 2. Elevated troponin secondary to renal failure. PLAN: I will review the echocardiogram once it is available. Treat him with optimal medical therapy. It is unclear if the patient was taking Coumadin in the outpatient setting or not. He has had 2 prior episodes of coagulopathy. This needs to be resolved prior to discharge. MMODL / IJN: [id number] /
[2020-08-05 10:24] LABS: Glucose,Whole Blood 223 mg/dL (75-99)
[2020-08-05 12:09] LABS: Glucose,Whole Blood 142 mg/dL (75-99)
--- NOTE | 2020-08-05 12:50 | P.CNPUL ---
History of Present Illness Consult date: 08/05/20 Requesting physician: Anitha Pressley Reason for consult: other (Critical care management) Chief complaint: Altered mental status secondary to hypoglycemia History of present illness: This is a very pleasant 74-year-old gentleman who follows with Dr. Vidales is his primary care provider. He has a history of hypothyroidism, hyperlipidemia, BPH with frequent UTI and self-catheterization, hypertension, end stage renal failure with dialysis Thursday, diabetes mellitus. He was a dmitted yesterday to the regular medical floor after being brought in by EMS with confusion and diaphoresis and hypoglycemia with a blood glucose of 41. Computed tomography scan of the brain revealed mild atrophy and mild changes of chronic small vessel ischemia. No acute intracranial abnormalities. Carotid Dopplers revealed no hemodynamically significant internal carotid artery stenosis bilaterally. Chest x-ray revealed evidence of cardiomegaly. No acute pulmonary process. Echocardiogram revealed evidence of moderate concentric LVH, overall preserved left ventricular systolic function with ejection fraction 55- 60%. Approximate 2:00 yesterday afternoon an A Team was called and the patient was unresponsive with his eyes rolled back in his head and shaking. Blood glucose level at that time was 64. He was subsequently transferred to the intensive care unit. He is seen today in consultation. He is awake and alert in no acute distress. Maintaining O2 saturation the high 90s on room air. He's been afebrile. Hemodynamically stable. White count 8.4. Hemoglobin 10.4. INR 3.4. Sodium 129. Potassium 4.4. Creatinine 5.61. Blood glucose 133. Currently on the NovoLog sliding scale. Frequent Accu checks. Review of Systems REVIEW OF SYSTEMS: CONSTITUTIONAL: Denies any recent significant weight loss or weight gain. EYES: Denies change in vision. EARS, NOSE, MOUTH, THROAT: Denies headaches, denies sore throat. CARDIOVASCULAR: Denies chest pain, palpitations or syncopal episodes. RESPIRATORY: Denies shortness of breath, cough, congestion or hemoptysis. GASTROINTESTINAL: Denies change in appetite, denies abdominal pain GENITOURINARY: Denies hematuria, denies infections. MUSKULOSKELETAL: Denies pain, denies swelling. INTEGUMENTARY: Denies rash, denies eczema. NEUROLOGICAL: Denies recent memory loss, no recent seizure activity. PSYCHIATRIC: Denies anxiety, denies depression. HEMATOLOGIC/LYMPHATIC: Denies anemia, denies enlarged lymph nodes. Past Medical History Past Medical History: Dialysis, Hyperlipidemia, Hypertension, Renal Disease, Thyroid Disorder Additional Past Medical History / Comment(s): CAPD every 6 hours 2.5 %, a week ago couldn't urinate and had a calhoun, anemia ovver a week ago had to have blood transfusion, legs sometimes go out and buckle per pt History of Any Multi-Drug Resistant Organisms: None Reported Past Surgical History: No Surgical Hx Reported Additional Past Surgical History / Comment(s): placement of peritoneal dialysis catheter and repair of umbilical hernia 07/2017, colonoscopy with polypectomy in the distant past. Past Anesthesia/Blood Transfusion Reactions: No Reported Reaction Past Psychological History: No Psychological Hx Reported Smoking Status: Never smoker Past Alcohol Use History: None Reported Past Drug Use History: None Reported - Past Family History Father Family Medical History: Myocardial Infarction ([place]) ( at 45) Additional Family Medical History / Comment(s): patient has 3 brothers and one sister is relatively healthy has chronic back problems patient has 5 children that are healthy with no kidney diabetes or coronary artery disease. Mother Family Medical History: Coronary Artery Disease (CAD), Diabetes Mellitus ( at 67) Medications and Allergies Home Medications Medication Instructions Recorded Confirmed Type Acetaminophen Tab [Tylenol] 650 mg PO Q6H PRN 11/04/19 08/04/20 History Cholecalciferol [Vitamin D3 (25 1,000 unit PO DAILY 11/04/19 08/04/20 History Mcg = 1000 Iu)] Folic Acid 0.4 mg PO DAILY 11/04/19 08/04/20 History Calcium Acetate [Phoslo] 667 mg PO AC-TID 08/04/20 08/04/20 History Clotrimazole/Betamethasone Dip 1 applic TOPICAL BID 08/04/20 08/04/20 History [Lotrisone Cream] Allergies Allergy/AdvReac Type Severity Reaction Status Date / Time No Known Allergies Allergy Verified 08/04/20 09:05 Physical Exam Vitals: Vital Signs Temp Pulse Resp BP Pulse Ox 08/05/20 12:00 98.5 F 50 L 10 L 130/71 98 08/05/20 11:00 55 L 13 150/70 08/05/20 10:00 58 L 25 H 169/78 98 08/05/20 09:00 72 20 134/75 97 08/05/20 08:00 97.9 F 65 20 154/81 98 08/05/20 07:00 56 L 20 144/68 99 08/05/20 06:00 51 L 14 141/66 95 08/05/20 05:00 50 L 15 154/76 95 08/05/20 04:00 97.8 F 54 L 13 134/58 96 08/05/20 03:00 51 L 12 139/78 96 08/05/20 02:00 52 L 14 139/68 98 08/05/20 01:00 50 L 11 L 137/60 96 08/05/20 00:10 52 L 14 99 08/05/20 00:00 98.0 F 55 L 13 140/54 95 08/04/20 23:00 52 L 15 138/66 98 08/04/20 22:00 53 L 17 137/68 96 08/04/20 21:00 50 L 11 L 111/83 96 08/04/20 20:00 97.8 F 56 L 13 126/64 95 08/04/20 19:00 51 L 12 129/65 94 L 08/04/20 18:00 61 17 129/65 94 L 08/04/20 17:00 56 L 12 125/55 94 L 08/04/20 16:00 97.6 F 59 L 12 136/58 94 L 08/04/20 15:01 72 18 Intake and Output 08/04/20 08/05/20 08/05/20 22:59 06:59 14:59 Intake Total 100 80 30 Output Total 30 20 10 Balance 70 60 20 Intake: Intake, IV Titration 100 80 30 Amount Dextrose 5% in Water 1, 50 000 ml @ 75 mls/hr IV . [id number] ONE Rx#:[id number] Sodium Chloride 0.9% 1, 50 80 30 000 ml @ 10 mls/hr IV . Q24H [facility] Rx#:[id number] Output: Urine 30 20 10 Other: Voiding Method Indwelling Catheter Indwelling Catheter Indwelling Catheter Weight 93.7 kg GENERAL EXAM: Alert, pleasant 74-year-old gentleman, comfortable in no apparent distress. On room air. HEAD: Normocephalic. EYES: Normal reaction of pupils, equal size. NOSE: Clear with pink turbinates. THROAT: No erythema or exudates. NECK: No masses, no JVD. CHEST: No chest wall deformity. LUNGS: Equal air entry with no crackles, wheeze, rhonchi or dullness. CVS: S1 and S2 normal with no audible murmur, regular rhythm. ABDOMEN: No hepatosplenomegaly, normal bowel sounds, no guarding or rigidity. SPINE: No scoliosis or deformity SKIN: No rashes CENTRAL NERVOUS SYSTEM: No focal deficits, tone is normal in all 4 extremities. EXTREMITIES: There is no peripheral edema. No clubbing, no cyanosis. Peripheral pulses are intact. Results - Laboratory Findings CBC and BMP: 08/05/20 04:01 08/05/20 04:01 PT/INR, D-dimer PT 33.5 sec (9.0-12.0) H 08/05/20 04:01 INR 3.4 (<1.2) H 08/05/20 04:01 Abnormal lab findings: Abnormal Labs 08/04/20 08/04/20 08/04/20 02:28 02:48 03:04 RBC Hgb Hct Lymphocytes # (Manual) PT INR APTT Sodium Chloride BUN Creatinine Glucose POC Glucose (mg/dL) <20 L 46 L <20 L Plasma Lactic Acid Gilberto Calcium Troponin I Total Protein Albumin Urine Protein Urine Blood Ur Leukocyte Esterase Urine RBC Urine WBC Urine Bacteria Urine Opiates Screen Ur Oxycodone Screen 08/04/20 08/04/20 08/04/20 03:10 03:16 03:16 RBC 3.58 L Hgb 11.0 L Hct 34.8 L Lymphocytes # (Manual) 0.78 L PT 38.9 H INR 3.9 H APTT 39.5 H Sodium Chloride BUN Creatinine Glucose POC Glucose (mg/dL) 158 H Plasma Lactic Acid Gilberto Calcium Troponin I Total Protein Albumin Urine Protein Urine Blood Ur Leukocyte Esterase Urine RBC Urine WBC Urine Bacteria Urine Opiates Screen Ur Oxycodone Screen 08/04/20 08/04/20 08/04/20 03:16 03:16 03:16 RBC Hgb Hct Lymphocytes # (Manual) PT INR APTT Sodium 130 L Chloride 92 L BUN 22 H Creatinine 4.44 H Glucose 251 H POC Glucose (mg/dL) Plasma Lactic Acid Gilberto 3.2 H* Calcium 8.2 L Troponin I 0.054 H* Total Protein 6.2 L Albumin 2.8 L Urine Protein Urine Blood Ur Leukocyte Esterase Urine RBC Urine WBC Urine Bacteria Urine Opiates Screen Ur Oxycodone Screen 08/04/20 08/04/20 08/04/20 04:10 05:12 05:41 RBC Hgb Hct Lymphocytes # (Manual) PT INR APTT Sodium Chloride BUN Creatinine Glucose POC Glucose (mg/dL) 241 H 279 H Plasma Lactic Acid Gilberto Calcium Troponin I Total Protein Albumin Urine Protein 2+ H Urine Blood Moderate H Ur Leukocyte Esterase Large H Urine RBC 8 H Urine WBC 39 H Urine Bacteria Rare H Urine Opiates Screen Detected H Ur Oxycodone Screen Detected H 08/04/20 08/04/20 08/04/20 07:21 08:38 11:20 RBC Hgb Hct Lymphocytes # (Manual) PT INR APTT Sodium Chloride BUN Creatinine Glucose POC Glucose (mg/dL) 214 H Plasma Lactic Acid Gilberto Calcium Troponin I 0.059 H* 0.059 H* Total Protein Albumin Urine Protein Urine Blood Ur Leukocyte Esterase Urine RBC Urine WBC Urine Bacteria Urine Opiates Screen Ur Oxycodone Screen 08/04/20 08/04/20 08/04/20 12:25 12:45 13:00 RBC Hgb Hct Lymphocytes # (Manual) PT INR APTT Sodium Chloride BUN Creatinine Glucose POC Glucose (mg/dL) 62 L 65 L 63 L Plasma Lactic Acid Gilberto Calcium Troponin I Total Protein Albumin Urine Protein Urine Blood Ur Leukocyte Esterase Urine RBC Urine WBC Urine Bacteria Urine Opiates Screen Ur Oxycodone Screen 08/04/20 08/04/20 08/04/20 13:07 13:26 13:59 RBC Hgb Hct Lymphocytes # (Manual) PT INR APTT Sodium Chloride BUN Creatinine Glucose POC Glucose (mg/dL) 50 L 145 H 64 L Plasma Lactic Acid Gilberto Calcium Troponin I Total Protein Albumin Urine Protein Urine Blood Ur Leukocyte Esterase Urine RBC Urine WBC Urine Bacteria Urine Opiates Screen Ur Oxycodone Screen 08/04/20 08/04/20 08/04/20 14:09 14:25 15:04 RBC Hgb Hct Lymphocytes # (Manual) PT INR APTT Sodium Chloride BUN Creatinine Glucose POC Glucose (mg/dL) 332 H 254 H 279 H Plasma Lactic Acid Gilberto Calcium Troponin I Total Protein Albumin Urine Protein Urine Blood Ur Leukocyte Esterase Urine RBC Urine WBC Urine Bacteria Urine Opiates Screen Ur Oxycodone Screen 08/04/20 08/04/20 08/04/20 15:33 16:07 17:54 RBC Hgb Hct Lymphocytes # (Manual) PT INR APTT Sodium Chloride BUN Creatinine Glucose POC Glucose (mg/dL) 220 H 218 H 195 H Plasma Lactic Acid Gilberto Calcium Troponin I Total Protein Albumin Urine Protein Urine Blood Ur Leukocyte Esterase Urine RBC Urine WBC Urine Bacteria Urine Opiates Screen Ur Oxycodone Screen 08/04/20 08/04/20 08/05/20 19:58 21:54 01:54 RBC Hgb Hct Lymphocytes # (Manual) PT INR APTT Sodium Chloride BUN Creatinine Glucose POC Glucose (mg/dL) 202 H 140 H 128 H Plasma Lactic Acid Gilberto Calcium Troponin I Total Protein Albumin Urine Protein Urine Blood Ur Leukocyte Esterase Urine RBC Urine WBC Urine Bacteria Urine Opiates Screen Ur Oxycodone Screen 08/05/20 08/05/20 08/05/20 04:01 04:01 04:01 RBC 3.43 L Hgb 10.4 L Hct 33.4 L Lymphocytes # (Manual) PT 33.5 H INR 3.4 H APTT Sodium 129 L Chloride 91 L BUN 28 H Creatinine 5.61 H Glucose POC Glucose (mg/dL) Plasma Lactic Acid Gilberto Calcium 8.0 L Troponin I Total Protein 5.8 L Albumin 2.6 L Urine Protein Urine Blood Ur Leukocyte Esterase Urine RBC Urine WBC Urine Bacteria Urine Opiates Screen Ur Oxycodone Screen 08/05/20 08/05/20 08/05/20 08:19 10:22 12:07 RBC Hgb Hct Lymphocytes # (Manual) PT INR APTT Sodium Chloride BUN Creatinine Glucose POC Glucose (mg/dL) 133 H 223 H 142 H Plasma Lactic Acid Gilberto Calcium Troponin I Total Protein Albumin Urine Protein Urine Blood Ur Leukocyte Esterase Urine RBC Urine WBC Urine Bacteria Urine Opiates Screen Ur Oxycodone Screen - Diagnostic Findings Chest x-ray: image reviewed (No acute cardiopulmonary process) Assessment and Plan Assessment: 1 Altered mental status secondary to hypoglycemia 2 Diabetes mellitus with labile blood glucose levels 3 End stage renal disease receiving hemodialysis Thursday 4 Hypertension 5 Anemia secondary to end-stage renal disease 6 BPH with self-catheterization and history of urinary tract infections 7 Hypothyroidism 8 Hyperlipidemia Plan: The patient was seen and evaluated by Dr. Spaulding He is currently stable from the critical care standpoint Transfer to the regular medical floor Continue close glucose monitoring Continue hemodialysis per schedule We will follow as needed I, the cosigning physician, performed a history & physical examination of the patient. Lungs sounds are clear. Maintaining good O2 saturations in the 90s on room air. I discussed the assessment and plan of care with my nurse practitioner, Karina Whaley. I attest to the above consultation as dictated by her.
[2020-08-05 14:00] LABS: Glucose,Whole Blood 168 mg/dL (75-99)
--- NOTE | 2020-08-05 16:11 | US ---
EXAMINATION TYPE: US abdomen complete DATE OF EXAM: 08/05/2020 COMPARISON: NONE CLINICAL HISTORY: abd pain. ICU patient who is hypoglycemic, only 4 hours NPO, abd pain but not durin g the scan EXAM MEASUREMENTS: Liver Length: 17.2 cm Gallbladder Wall: 0.6 cm CBD: 0.5 cm Spleen: not seen Right Kidney: 10.3 x 4.5 x 4.9 cm Left Kidney: 9.0 x 3.2 x 5.1 cm Pancreas: not seen due to bowel gas Liver: limited imaging, difficult to penetrate Gallbladder: limited views produced multiple stones with thickened wall, patient only 4 hours NPO Evidence for sonographic Oakley's sign: no CBD: wnl Spleen: not seen due to bowel gas Right Kidney: wnl Left Kidney: limited visibility, estimated size Upper IVC: wnl Abd Aorta: not seen due to bowel gas IMPRESSION: There is gallbladder wall thickening suggestive of cholecystitis. Multiple gallstones. No dilated ducts. No free fluid.
[2020-08-05 17:02] LABS: Glucose,Whole Blood 163 mg/dL (75-99)
[2020-08-05] MEDS: INSULN ASP PRT/INSULIN ASPART 100 UNIT/ML 10 ML VIAL SQ SCH (17:33)
[2020-08-05 18:16] LABS: Glucose,Whole Blood 176 mg/dL (75-99)
[2020-08-05] MEDS: SODIUM CHLORIDE 0.9% 1,000 ML IV SCH (19:12)
[2020-08-05 20:10] LABS: Glucose,Whole Blood 176 mg/dL (75-99)
[2020-08-05] MEDS: ATORVASTATIN 40 MG TAB PO SCH (21:19)
[2020-08-05 21:53] LABS: Glucose,Whole Blood 147 mg/dL (75-99)
[2020-08-05] MEDS: GLUCAGON 1 MG/ML VIAL IVP STA (23:13)
[2020-08-05 23:53] LABS: Glucose,Whole Blood 125 mg/dL (75-99)
[2020-08-06 02:05] LABS: Glucose,Whole Blood 112 mg/dL (75-99)
[2020-08-06 04:44] LABS: Glucose,Whole Blood 104 mg/dL (75-99)
[2020-08-06] MEDS: LEVOTHYROXINE 75 MCG TAB PO SCH (06:01)
[2020-08-06 06:19] LABS: Glucose,Whole Blood 114 mg/dL (75-99)
[2020-08-06 07:08] LABS: Basophils # (A) 0.1 k/uL (0-0.2); Basophils % (A) 1 %; Eosinophils # (A) 0.4 k/uL (0-0.7); Eosinophils % (A) 6 %; HCT 32.6 % (39.0-53.0); Hypochromasia Slight; Lymphocytes # (A) 1.2 k/uL (1.0-4.8); Lymphocytes % (A) 15 %; MCH 30.1 pg (25.0-35.0); MCHC 30.7 g/dL (31.0-37.0); MCV 98.1 fL (80.0-100.0); Macrocytosis Slight; Monocytes # (A) 0.4 k/uL (0-1.0); Monocytes % (A) 5 %; Neutrophils # (A) 5.5 k/uL (1.3-7.7); Neutrophils % (A) 71 %; Platelet Count 295 k/uL (150-450); RBC 3.32 m/uL (4.30-5.90); RDW 15.6 % (11.5-15.5); WBC 7.6 k/uL (3.8-10.6)
[2020-08-06 07:11] LABS: INR 2.3 (<1.2); Prothrombin Time 22.4 sec (9.0-12.0)
[2020-08-06 07:25] LABS: Glucose,Whole Blood 104 mg/dL (75-99)
[2020-08-06 07:32] LABS: ALT <6 U/L (4-49); AST 23 U/L (17-59); African American GFR (CKD) 8 (>60 ml/min/1.73 sqM); Albumin 2.6 g/dL (3.5-5.0); Alkaline Phosphatase 106 U/L (38-126); Anion Gap 11 mmol/L; Blood Urea Nitrogen 36 mg/dL (9-20); Carbon Dioxide 27 mmol/L (22-30); Chloride 92 mmol/L (98-107); Glucose 111 mg/dL (74-99); Non-African American GFR(CKD) 7 (>60 ml/min/1.73 sqM); Potassium 4.7 mmol/L (3.5-5.1); Sodium 130 mmol/L (137-145); Total Bilirubin 1.2 mg/dL (0.2-1.3); Total Protein 5.9 g/dL (6.3-8.2)
[2020-08-06] MEDS: INSULIN ASPART (NovoLOG) 100 UNIT/ML VIAL SQ SCH ×4 (07:34→21:10)
[2020-08-06] MEDS: INSULN ASP PRT/INSULIN ASPART 100 UNIT/ML 10 ML VIAL SQ SCH ×2 (07:56→18:14)
--- NOTE | 2020-08-06 09:26 | P.CNNES ---
History of Present Illness Consult date: 08/06/20 Requesting physician: Anitha Pressley Reason for Consult: seizure like activity History of Present Illness: This is a 74-year-old right-handed gentleman with a history of end-stage renal disease on dialysis 3 days out of the week, diabetes mellitus, hypertension, hyperlipidemia, benign prostate hyperplasia with frequent UTI who presented to the emergency department on 08/04/2020 at 2:32 AM after being brought by EMS with confusion and diaphoresis and hypoglycemia of 41. The patient notified the ED he was not feeling well and was feeling "sweaty". Per lab the patient's POC glucose was less than 20 and on presentation. The patient was given dextrose in the ED at. Patient was admitted to medical floor. He was doing well until at 2 PM on 08/04/2020 with the patient was unresponsive in his eyes were rolling back and he was shaken. Upon seeing the primary team she notified me that the patient did not have any shaken but the was told that the patient had the rolling of the eyes backward notified and that notified to her by nurse. Unsure of duration. Blood glucose level at that time was 64 patient was given the Keppra 1 g loading dose once. Then the patient was transferred to the ICU. Of note the patient denies any history of seizures. As well as denies any family history of seizures. He also denies history of strokes as well as TIAs. He denies overmedicating on insulin. He denies any similar episodes in the past. Patient stated that the he did not have the any weakness associated with this episode denies any tongue bite or urinary or bowel incontinence upon waking up on this episode. Regarding the patient's history he said that the he's not sure for was a vaginal delivery or but it was normal and there is no complication. Resides on his own and he said that he uses a cane because he feels unsteady upon walking. He can't tell me a prolonged uses a cane for. He denies any lower back pain or neck pain. On presentation the patient's vitals: Blood pressure of 133/69, heart rate of 83, temperature of 94.5 Fahrenheit rectal, respiratory rate was 18 and the pulse ox of 97 at room air. As stated on presentation per hour labs the initial POC glucose was less than 20. Repeat it was 46. The one after that was less than [address] of the head was done in the ED and was reported as mild atrophy and mild changes of the chronic small vessel ischemia. No acute intracranial abnormalities. I personally reviewed the images and felt there is mild to moderate diffuse atrophy and there was no acute ischemia or hemorrhage seen. Carotid duplex were also done and that was reported as no hemodynamically significant internal carotid artery stenosis bilaterally. There is a mild atherosclerotic plaque bilateral hyfrecation. Right vertebral artery cannot be visualized possibly due to technical problems. Chest x-ray revealed evidence of cardiomegaly. No acute pulmonary process. Urinalysis showed the urine leukocyte esterase was large, urine bacteria was rare, urine 1 blood cell was 39 and 8 urine nitrate was negative. Because the patient was doing better the patient was transferred out of the ICU to the medical floors. It's also mentioned that the patient has history of atrial fibrillation. It is documented to the patient hypoglycemic episodes are possibly due to decreased clearance of the insulin. Review of Systems Review of system: The 12 point system was reviewed and apparent positive and negative per HPI. Past Medical History Past Medical History: Dialysis, Hyperlipidemia, Hypertension, Renal Disease, Thyroid Disorder Additional Past Medical History / Comment(s): CAPD every 6 hours 2.5 %, a week ago couldn't urinate and had a calhoun, anemia ovver a week ago had to have blood transfusion, legs sometimes go out and buckle per pt History of Any Multi-Drug Resistant Organisms: None Reported Past Surgical History: No Surgical Hx Reported Additional Past Surgical History / Comment(s): placement of peritoneal dialysis catheter and repair of umbilical hernia 07/2017, colonoscopy with polypectomy in the distant past. Past Anesthesia/Blood Transfusion Reactions: No Reported Reaction Past Psychological History: No Psychological Hx Reported Smoking Status: Never smoker Past Alcohol Use History: None Reported Past Drug Use History: None Reported - Past Family History Father Family Medical History: Myocardial Infarction (MS) ( at 45) Additional Family Medical History / Comment(s): patient has 3 brothers and one sister is relatively healthy has chronic back problems patient has 5 children that are healthy with no kidney diabetes or coronary artery disease. Mother Family Medical History: Coronary Artery Disease (CAD), Diabetes Mellitus ( at 67) Medications and Allergies Home Medications Medication Instructions Recorded Confirmed Type Acetaminophen Tab [Tylenol] 650 mg PO Q6H PRN 11/04/19 08/04/20 History Cholecalciferol [Vitamin D3 (25 1,000 unit PO DAILY 11/04/19 08/04/20 History Mcg = 1000 Iu)] Folic Acid 0.4 mg PO DAILY 11/04/19 08/04/20 History Calcium Acetate [Phoslo] 667 mg PO AC-TID 08/04/20 08/04/20 History Clotrimazole/Betamethasone Dip 1 applic TOPICAL BID 08/04/20 08/04/20 History [Lotrisone Cream] Allergies Allergy/AdvReac Type Severity Reaction Status Date / Time No Known Allergies Allergy Verified 08/04/20 09:05 Physical Examination - Vital Signs Vital Signs: Vital Signs Temp Pulse Pulse Resp BP BP Pulse Ox 08/06/20 06:06 97.3 F L 57 L 16 153/80 100 08/05/20 20:32 97.5 F L 55 L 18 138/76 100 08/05/20 15:00 98 F 55 L 18 135/80 97 08/05/20 12:00 98.5 F 50 L 10 L 130/71 98 08/05/20 11:00 55 L 13 150/70 08/05/20 10:00 58 L 25 H 169/78 98 08/05/20 09:00 72 20 134/75 97 Intake and Output 08/05/20 08/06/20 08/06/20 22:59 06:59 14:59 Intake Total 240 180 Output Total 20 Balance 240 160 Intake: IV 120 Sodium Chloride 0.9% 1, 120 000 ml @ 10 mls/hr IV . Q24H [facility] Rx#:[id number] Oral 240 60 Output: Urine 20 Other: Voiding Method Indwelling Catheter Indwelling Catheter GENERAL: The patient is lying in bed and is not in acute distress. CHEST: The heart rate is regular rate rhythm. No murmurs to auscultation. No carotid bruit bilaterally. LUNG: Clear to auscultation bilaterally no wheezing noted throughout. Not labored breathing. ABDOMEN/GI: Bowel sounds present in all 4 quadrants. No tenderness to palpation throughout. NEUROLOGICAL: Higher mental function: The patient is awake, alert, oriented to self, place and time. Patient is following simple commands. He is somewhat slow in responsding to question. No aphasia and no neglect. Cranial nerves: The pupils are round, equal and reactive to light and accommodation. Visual ospina are full to confrontation throughout. Extraocular movement is intact no nystagmus is noted. Facial sensation is normal to touch throughout. The facial strength is normal throughout. Hearing is normal bilaterally to hand rub. Tongue is midline and moved [id number] without any difficulty. No dysarthria is noted. Shoulder shrug is normal bilaterally. Motor: Gait is defered. The strength is 5 over 5 throughout. Normal tone and bulk. Cerebellum: Normal finger to nose bilaterally. Sensation: Sensation is normal to touch throughout. Reflexes (right/left): 2+ throughout except 1+ at ankles. Plantars are downgoing bilaterally. Results On presentation the patient initial sodium was 130. Initial creatinine was 4.44 and little latest creatinine is 6.82 (hx of ESRD) Initial calcium is 8.2 and the latest one is 8.0 AST of 29 ALTs of 6 albumin is 2.8 Patient's initial cryoablation study: PT of 38.9, INR 3.9 and PTT of 39.5. Urine drug screen was positive for opiates as well as the oxycodone. 2-D echo was reported as low moderate concentric left ventricular hypertrophy. Left ventricle systolic function with ejection fraction between 55-60%. Left atrium is moderately dilated. There is mild to moderate pulmonary hypertension. - Laboratory Findings CBC and BMP: 08/06/20 06:22 08/06/20 06:22 Abnormal Lab Findings: Abnormal Labs 08/04/20 08/04/20 08/04/20 02:28 02:48 03:04 RBC Hgb Hct MCHC RDW Lymphocytes # (Manual) PT INR APTT Sodium Chloride BUN Creatinine Glucose POC Glucose (mg/dL) <20 L 46 L <20 L Plasma Lactic Acid Gilberto Calcium Troponin I Total Protein Albumin Urine Protein Urine Blood Ur Leukocyte Esterase Urine RBC Urine WBC Urine Bacteria Urine Opiates Screen Ur Oxycodone Screen 08/04/20 08/04/20 08/04/20 03:10 03:16 03:16 RBC 3.58 L Hgb 11.0 L Hct 34.8 L MCHC RDW Lymphocytes # (Manual) 0.78 L PT 38.9 H INR 3.9 H APTT 39.5 H Sodium Chloride BUN Creatinine Glucose POC Glucose (mg/dL) 158 H Plasma Lactic Acid Gilberto Calcium Troponin I Total Protein Albumin Urine Protein Urine Blood Ur Leukocyte Esterase Urine RBC Urine WBC Urine Bacteria Urine Opiates Screen Ur Oxycodone Screen 08/04/20 08/04/20 08/04/20 03:16 03:16 03:16 RBC Hgb Hct MCHC RDW Lymphocytes # (Manual) PT INR APTT Sodium 130 L Chloride 92 L BUN 22 H Creatinine 4.44 H Glucose 251 H POC Glucose (mg/dL) Plasma Lactic Acid Gilberto 3.2 H* Calcium 8.2 L Troponin I 0.054 H* Total Protein 6.2 L Albumin 2.8 L Urine Protein Urine Blood Ur Leukocyte Esterase Urine RBC Urine WBC Urine Bacteria Urine Opiates Screen Ur Oxycodone Screen 08/04/20 08/04/20 08/04/20 04:10 05:12 05:41 RBC Hgb Hct MCHC RDW Lymphocytes # (Manual) PT INR APTT Sodium Chloride BUN Creatinine Glucose POC Glucose (mg/dL) 241 H 279 H Plasma Lactic Acid Gilberto Calcium Troponin I Total Protein Albumin Urine Protein 2+ H Urine Blood Moderate H Ur Leukocyte Esterase Large H Urine RBC 8 H Urine WBC 39 H Urine Bacteria Rare H Urine Opiates Screen Detected H Ur Oxycodone Screen Detected H 08/04/20 08/04/20 08/04/20 07:21 08:38 11:20 RBC Hgb Hct MCHC RDW Lymphocytes # (Manual) PT INR APTT Sodium Chloride BUN Creatinine Glucose POC Glucose (mg/dL) 214 H Plasma Lactic Acid Gilberto Calcium Troponin I 0.059 H* 0.059 H* Total Protein Albumin Urine Protein Urine Blood Ur Leukocyte Esterase Urine RBC Urine WBC Urine Bacteria Urine Opiates Screen Ur Oxycodone Screen 08/04/20 08/04/20 08/04/20 12:25 12:45 13:00 RBC Hgb Hct MCHC RDW Lymphocytes # (Manual) PT INR APTT Sodium Chloride BUN Creatinine Glucose POC Glucose (mg/dL) 62 L 65 L 63 L Plasma Lactic Acid Gilberto Calcium Troponin I Total Protein Albumin Urine Protein Urine Blood Ur Leukocyte Esterase Urine RBC Urine WBC Urine Bacteria Urine Opiates Screen Ur Oxycodone Screen 08/04/20 08/04/20 08/04/20 13:07 13:26 13:59 RBC Hgb Hct MCHC RDW Lymphocytes # (Manual) PT INR APTT Sodium Chloride BUN Creatinine Glucose POC Glucose (mg/dL) 50 L 145 H 64 L Plasma Lactic Acid Gilberto Calcium Troponin I Total Protein Albumin Urine Protein Urine Blood Ur Leukocyte Esterase Urine RBC Urine WBC Urine Bacteria Urine Opiates Screen Ur Oxycodone Screen 08/04/20 08/04/20 08/04/20 14:09 14:25 15:04 RBC Hgb Hct MCHC RDW Lymphocytes # (Manual) PT INR APTT Sodium Chloride BUN Creatinine Glucose POC Glucose (mg/dL) 332 H 254 H 279 H Plasma Lactic Acid Gilberto Calcium Troponin I Total Protein Albumin Urine Protein Urine Blood Ur Leukocyte Esterase Urine RBC Urine WBC Urine Bacteria Urine Opiates Screen Ur Oxycodone Screen 08/04/20 08/04/20 08/04/20 15:33 16:07 17:54 RBC Hgb Hct MCH RDW Lymphocytes # (Manual) PT INR APTT Sodium Chloride BUN Creatinine Glucose POC Glucose (mg/dL) 220 H 218 H 195 H Plasma Lactic Acid Gilberto Calcium Troponin I Total Protein Albumin Urine Protein Urine Blood Ur Leukocyte Esterase Urine RBC Urine WBC Urine Bacteria Urine Opiates Screen Ur Oxycodone Screen 08/04/20 08/04/20 08/05/20 19:58 21:54 01:54 RBC Hgb Hct MCH RDW Lymphocytes # (Manual) PT INR APTT Sodium Chloride BUN Creatinine Glucose POC Glucose (mg/dL) 202 H 140 H 128 H Plasma Lactic Acid Gilberto Calcium Troponin I Total Protein Albumin Urine Protein Urine Blood Ur Leukocyte Esterase Urine RBC Urine WBC Urine Bacteria Urine Opiates Screen Ur Oxycodone Screen 08/05/20 08/05/20 08/05/20 04:01 04:01 04:01 RBC 3.43 L Hgb 10.4 L Hct 33.4 L MCHC RDW Lymphocytes # (Manual) PT 33.5 H INR 3.4 H APTT Sodium 129 L Chloride 91 L BUN 28 H Creatinine 5.61 H Glucose POC Glucose (mg/dL) Plasma Lactic Acid Gilberto Calcium 8.0 L Troponin I Total Protein 5.8 L Albumin 2.6 L Urine Protein Urine Blood Ur Leukocyte Esterase Urine RBC Urine WBC Urine Bacteria Urine Opiates Screen Ur Oxycodone Screen 08/05/20 08/05/20 08/05/20 08:19 10:22 12:07 RBC Hgb Hct MCHC RDW Lymphocytes # (Manual) PT INR APTT Sodium Chloride BUN Creatinine Glucose POC Glucose (mg/dL) 133 H 223 H 142 H Plasma Lactic Acid Gilberto Calcium Troponin I Total Protein Albumin Urine Protein Urine Blood Ur Leukocyte Esterase Urine RBC Urine WBC Urine Bacteria Urine Opiates Screen Ur Oxycodone Screen 08/05/20 08/05/20 08/05/20 13:58 17:00 18:14 RBC Hgb Hct MCHC RDW Lymphocytes # (Manual) PT INR APTT Sodium Chloride BUN Creatinine Glucose POC Glucose (mg/dL) 168 H 163 H 176 H Plasma Lactic Acid Gilberto Calcium Troponin I Total Protein Albumin Urine Protein Urine Blood Ur Leukocyte Esterase Urine RBC Urine WBC Urine Bacteria Urine Opiates Screen Ur Oxycodone Screen 08/05/20 08/05/20 08/05/20 20:08 21:52 23:50 RBC Hgb Hct MCHC RDW Lymphocytes # (Manual) PT INR APTT Sodium Chloride BUN Creatinine Glucose POC Glucose (mg/dL) 176 H 147 H 125 H Plasma Lactic Acid Gilberto Calcium Troponin I Total Protein Albumin Urine Protein Urine Blood Ur Leukocyte Esterase Urine RBC Urine WBC Urine Bacteria Urine Opiates Screen Ur Oxycodone Screen 08/06/20 08/06/20 08/06/20 02:02 04:42 06:18 RBC Hgb Hct MCHC RDW Lymphocytes # (Manual) PT INR APTT Sodium Chloride BUN Creatinine Glucose POC Glucose (mg/dL) 112 H 104 H 114 H Plasma Lactic Acid Gilberto Calcium Troponin I Total Protein Albumin Urine Protein Urine Blood Ur Leukocyte Esterase Urine RBC Urine WBC Urine Bacteria Urine Opiates Screen Ur Oxycodone Screen 08/06/20 08/06/20 08/06/20 06:22 06:22 06:22 RBC 3.32 L Hgb 10.0 L Hct 32.6 L MCHC 30.7 L RDW 15.6 H Lymphocytes # (Manual) PT 22.4 H INR 2.3 H APTT Sodium 130 L Chloride 92 L BUN 36 H Creatinine 6.82 H Glucose 111 H POC Glucose (mg/dL) Plasma Lactic Acid Gilberto Calcium 8.0 L Troponin I Total Protein 5.9 L Albumin 2.6 L Urine Protein Urine Blood Ur Leukocyte Esterase Urine RBC Urine WBC Urine Bacteria Urine Opiates Screen Ur Oxycodone Screen 08/06/20 07:22 RBC Hgb Hct MCHC RDW Lymphocytes # (Manual) PT INR APTT Sodium Chloride BUN Creatinine Glucose POC Glucose (mg/dL) 104 H Plasma Lactic Acid Gilberto Calcium Troponin I Total Protein Albumin Urine Protein Urine Blood Ur Leukocyte Esterase Urine RBC Urine WBC Urine Bacteria Urine Opiates Screen Ur Oxycodone Screen Assessment and Plan Assessment: Provoked seizure like episode due to hypoglycemia Toxic metabolic encephalopathy (hypoglycemia and underlying UTI)---resolved. 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 The team ordered the routine EEG was has not been done yet since there was no him tech, likely will be done tomorrow. Patient will not be started on antiepileptic drug since this was a provoked because of the hypoglycemia. Recommend vitamin B12 level. Recommend repeat hemoglobin A1c lasting globe and was he was 6.1 which was on 09/19/2019 as well as TSH: 4.180. According to primary team, she said that she cannot repeat the hemoglobin A1c since it would not be approved by insurance. 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 Patient's hyponatremia likely due to medication use (patient is on Lasix 80 mg twice a day). If possible consider modifying the medication. Patient is on the folic acid 1 mg daily. We'll defer the management of the labile diabetes, as well as patient the current urinary tract infection to the primary team. end-stage renal disease on dialysis, nephrology is on board. Cardiology is on board regarding the elevated troponin and atrial fibrillation. The plan was discussed with the primary team. Thank you for the consult. Rafi Joshua M.D. Neuro-hospitalist Time with Patient: Greater than 30
[2020-08-06] MEDS: FOLIC ACID 1 MG TAB PO SCH (09:35)
[2020-08-06] MEDS: HEPARIN SODIUM,PORCINE 5,000 UNIT/ML 1 ML VIAL SQ SCH ×2 (09:35→21:05)
[2020-08-06] MEDS: CALCIUM ACETATE 667 MG TAB PO SCH ×3 (09:35→18:13)
[2020-08-06] MEDS: FENOFIBRATE 160 MG TAB PO SCH (09:35)
[2020-08-06] MEDS: METOPROLOL TARTRATE 25 MG TAB PO SCH ×2 (09:35→21:05)
[2020-08-06] MEDS: CHOLECALCIFEROL 1,000 UNIT TAB PO SCH (09:35)
[2020-08-06] MEDS: PANTOPRAZOLE 40 MG TABLET PO SCH (09:35)
[2020-08-06] MEDS: FUROSEMIDE 80 MG TAB PO SCH ×2 (09:35→18:13)
[2020-08-06] MEDS: hydrALAZINE HCL 25 MG TAB PO SCH ×3 (09:35→21:05)
[2020-08-06] MEDS: amLODIPine 10 MG TAB PO SCH (09:35)
[2020-08-06] MEDS: polyethylene glycoL 3350 17 GM POWD.PACK PO SCH (09:36)
[2020-08-06] MEDS: LEVOFLOXACIN 250 MG TAB PO SCH (09:36)
[2020-08-06] MEDS: TAMSULOSIN 0.4 MG CAP.ER.24H PO SCH (09:37)
[2020-08-06 10:08] LABS: Glucose,Whole Blood 131 mg/dL (75-99)
[2020-08-06 12:19] LABS: Glucose,Whole Blood 131 mg/dL (75-99)
--- NOTE | 2020-08-06 12:50 | P.PN ---
Subjective Progress Note Date: 08/06/20 Follow-up for ESRD. Out of ICU, awaiting dialysis today. Objective - Vital Signs Vital signs: Vital Signs Temp 97.3 F L 08/06/20 06:06 Pulse 57 L 08/06/20 06:06 Resp 16 08/06/20 06:06 BP 153/80 08/06/20 06:06 Pulse Ox 100 08/06/20 06:06 Intake & Output 08/05/20 08/06/20 08/06/20 18:59 06:59 18:59 Intake Total 110 420 Output Total 30 20 20 Balance 80 400 -20 Intake: IV 80 120 Sodium Chloride 0.9% 1, 80 120 000 ml @ 10 mls/hr IV . Q24H [facility] Rx#:[id number] Intake, IV Titration 30 Amount Sodium Chloride 0.9% 1, 30 000 ml @ 10 mls/hr IV . Q24H [facility] Rx#:[id number] Oral 300 Output: Urine 30 20 20 Other: Voiding Method Indwelling Catheter Indwelling Catheter Indwelling Catheter - Exam No acute distress S1-S2 heard Lungs clear Abdomen soft No edema right jugular permacath - Labs CBC & Chem 7: 08/06/20 06:22 08/06/20 06:22 Labs: Abnormal Lab Results - Last 24 Hours (Table) 08/05/20 08/05/20 08/05/20 Range/Units 13:58 17:00 18:14 RBC (4.30-5.90) m/uL Hgb (13.0-17.5) gm/dL Hct (39.0-53.0) % MCHC (31.0-37.0) g/dL RDW (11.5-15.5) % PT (9.0-12.0) sec INR (<1.2) Sodium (137-145) mmol/L Chloride (98-107) mmol/L BUN (9-20) mg/dL Creatinine (0.66-1.25) mg/dL Glucose (74-99) mg/dL POC Glucose (mg/dL) 168 H 163 H 176 H (75-99) mg/dL Calcium (8.4-10.2) mg/dL Total Protein (6.3-8.2) g/dL Albumin (3.5-5.0) g/dL 08/05/20 08/05/20 08/05/20 Range/Units 20:08 21:52 23:50 RBC (4.30-5.90) m/uL Hgb (13.0-17.5) gm/dL Hct (39.0-53.0) % MCHC (31.0-37.0) g/dL RDW (11.5-15.5) % PT (9.0-12.0) sec INR (<1.2) Sodium (137-145) mmol/L Chloride (98-107) mmol/L BUN (9-20) mg/dL Creatinine (0.66-1.25) mg/dL Glucose (74-99) mg/dL POC Glucose (mg/dL) 176 H 147 H 125 H (75-99) mg/dL Calcium (8.4-10.2) mg/dL Total Protein (6.3-8.2) g/dL Albumin (3.5-5.0) g/dL 08/06/20 08/06/20 08/06/20 Range/Units 02:02 04:42 06:18 RBC (4.30-5.90) m/uL Hgb (13.0-17.5) gm/dL Hct (39.0-53.0) % MCHC (31.0-37.0) g/dL RDW (11.5-15.5) % PT (9.0-12.0) sec INR (<1.2) Sodium (137-145) mmol/L Chloride (98-107) mmol/L BUN (9-20) mg/dL Creatinine (0.66-1.25) mg/dL Glucose (74-99) mg/dL POC Glucose (mg/dL) 112 H 104 H 114 H (75-99) mg/dL Calcium (8.4-10.2) mg/dL Total Protein (6.3-8.2) g/dL Albumin (3.5-5.0) g/dL 08/06/20 08/06/20 08/06/20 Range/Units 06:22 06:22 06:22 RBC 3.32 L (4.30-5.90) m/uL Hgb 10.0 L (13.0-17.5) gm/dL Hct 32.6 L (39.0-53.0) % MCHC 30.7 L (31.0-37.0) g/dL RDW 15.6 H (11.5-15.5) % PT 22.4 H (9.0-12.0) sec INR 2.3 H (<1.2) Sodium 130 L (137-145) mmol/L Chloride 92 L (98-107) mmol/L BUN 36 H (9-20) mg/dL Creatinine 6.82 H (0.66-1.25) mg/dL Glucose 111 H (74-99) mg/dL POC Glucose (mg/dL) (75-99) mg/dL Calcium 8.0 L (8.4-10.2) mg/dL Total Protein 5.9 L (6.3-8.2) g/dL Albumin 2.6 L (3.5-5.0) g/dL 08/06/20 08/06/20 08/06/20 Range/Units 07:22 10:06 12:16 RBC (4.30-5.90) m/uL Hgb (13.0-17.5) gm/dL Hct (39.0-53.0) % MCHC (31.0-37.0) g/dL RDW (11.5-15.5) % PT (9.0-12.0) sec INR (<1.2) Sodium (137-145) mmol/L Chloride (98-107) mmol/L BUN (9-20) mg/dL Creatinine (0.66-1.25) mg/dL Glucose (74-99) mg/dL POC Glucose (mg/dL) 104 H 131 H 131 H (75-99) mg/dL Calcium (8.4-10.2) mg/dL Total Protein (6.3-8.2) g/dL Albumin (3.5-5.0) g/dL Microbiology - Last 24 Hours (Table) 08/04/20 03:38 Blood Culture - Preliminary Blood No Growth after 48 hours 08/04/20 05:41 Urine Culture - Final Urine,Voided Assessment and Plan Assessment: #1 persistent hypoglycemia secondary to insulin, decrease clearance with ESRD. Random cortisol within normal range. #2 ESRD, MWF schedule via right jugular permacath. 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 #2 hemodialysis today as per outpatient schedule. #3 ESRD medications
--- NOTE | 2020-08-06 13:14 | P.PN ---
Subjective Progress Note Date: 08/06/20 This is a 74-year-old -[place] gentleman patient of Dr. Vidales with a past medical history significant for end-stage renal failure on dialysis Thursday, hyperlipidemia, hypertension, hypothyroid, previous EtOH abuse. Denies smoking. Patient lives alone and family comes to see him. Patient was brought into the emergency room via EMS. When EMS arrived on scene they stated that the patient was unable to tell them what was going on he was confused and diaphoretic. Blood sugar was 41 and was given oral glucose. The patient arrived to the hospital he remained not feeling well and diaphoretic. Patient states that while he was at home he began to feel sweaty and not well so he called EMS. Patient states that he ate approximate one hour prior to taking his insulin. Patient states that he was recently discharged from the [facility] and [place] for the same symptoms. Patient decided to come to the nearest hospital because of his symptoms. Patient states that his daughter will be in this afternoon with his medication list and health problems. 08/05: Patient was transferred to ICU for one-on-one monitoring due to confusion and blood sugar monitoring. Patient was on Accu-Cheks every hour which has resolved to Accu-Cheks before meals at bedtime. Patient is on a sliding scale. At this time patient is sitting up in bed resting comfortably in no acute distress. Patient is able to answer questions appropriately. Patient states that he takes NovoLog 70 3036 units in the morning and 26 units in the evening. Patient is complaining of abdominal pain and discomfort. Denies any nausea vomiting diarrhea or constipation. Patient has been afebrile, pulse rate 58, respirations 25, blood pressure 169/78, pulse ox 98% on room air. W BC 8.4, hemoglobin 10.4, BUN 28, creatinine 5.61. Patient will be scheduled for hemodialysis on Thursday. 08/06: Patient is sitting up in bed resting comfortably without any acute distress. Patient is able to answer questions appropriately and is not as confused compared to yesterday. Patient continues to be on sliding scales with meals and he is able to tolerate 100% of his meals. Patient has no complaints or concerns at this time. W BC 7.6, hemoglobin 10.0, sodium 1:30, potassium 4.7, BUN 36, creatinine 6.82 patient to have dialysis today. Review Of Systems: Constitutional: No fever, no chills, no night sweats. No weight change. Reports weakness, no fatigue or lethargy. No daytime sleepiness. Reports diaphoresis resolved EENT: No headache. No blurred vision or double vision, no loss of vision. No loss of Hearing, no ringing in the ears, no dizziness. No nasal drainage or congestion. No epistaxis. No sore throat. Lungs: No shortness of breath, cough, no sputum production. No wheezing. Cardiovascular: No chest pain, no lower extremity edema. No palpitations. No paroxysmal nocturnal dyspnea. No orthopnea. No lightheadedness or dizziness. No syncopal episodes. Abdominal: Reports abdominal discomfort. No nausea, vomiting. no diarrhea. No constipation. No bloody or tarry stools. no loss of appetite. Genitourinary: No dysuria, increased frequency, urgency. No urinary retention. Musculoskeletal: No myalgias. No muscle weakness, no gait dysfunction, no frequent falls. No back pain. No neck pain. Integumentary: No wounds, no lesions. No rash or pruritus. No unusual bruising. No change in hair or nails. Neurologic: No aphasia. No facial droop. No change in mentation. No head injury. No headache. No paralysis. No paresthesia. Psychiatric: No depression. No anxiety. No mood swings. Endocrine: No abnormal blood sugars. No weight change. No excessive sweating or thirst. Physical exam: General Appearance: Alert, cooperative, no distress, 74-year-old male appears stated age. Neck HEENT: Supple, no lymphadenopathy, no thyroid enlargement, no carotid bru its. Lungs: Clear to auscultation without crackles or wheezes no rhonchi, no deformity. Chest Wall: Dialysis catheter left upper chest wall, Chest wall normal expansion with deep inspiration no tenderness and no deformity was found on exam, no costochondral pain or discomfort. Heart: Regular rate and rhythm, S1, S2 normal, no murmur, rub or gallop. Back: Symmetric, no curvature, ROM normal, no CVA tenderness. Abdomen: Soft, non-tender, no rebound or rigidity, no hepatosplenomegaly. Extremities: Extremities normal, atraumatic, no cyanosis, 1+ bilateral lower extremity edema. Pulses: 2+ and symmetric. Skin: Skin color, texture, tugor normal, no rashes or lesions. Neurologic: Alert oriented x3 cranial nerves II through XII intact, no motor deficit, no abnormal balance or gait Assessment/plan: 1. Hypoglycemia with altered mental status. Continue with Accu-Cheks before meals at bedtime, NovoLog 70/30 10 units in the morning and 6 units in the evening with meals, continue sliding scale as needed. carotid ultrasound impression no hemodynamically significant internal carotid artery stenosis on either side. Mild arthrosclerosis plaque at the bifurcations. Unable to visualize the right vertebral artery at this time. 2. UTI with history of BPH self-catheterization. Levaquin 250 mg by mouth daily Rocephin 1 g every 24 hours. 3. Diabetes mellitus with complications. Continue with Accu-Cheks before meals at bedtime, NovoLog 70 3010 units in the morning 6 units in the evening continue sliding scale. 4. Elevated troponin. Consult cardiology appreciated, echocardiogram impres dari: EF 55-60%, mild mitral regurgitation, mild to moderate tricuspid regurgitation. Mild to moderate pulmonary hypertension. Right ventricular systolic pressure measured with Doppler 43.4-9 m mercury 5. End-stage renal failure with dialysis Thursday. PhosLo 667 mg by mouth before meals 3 times a day, folate acid 1 mg by mouth daily. Nephrology consult appreciated. dialysis on Thursday. 6. Hypertension. Lopressor 25 mg twice a day, hydralazine 25 mg 3 times a day, Lasix 80 mg by mouth twice a day, Norvasc 10 mg by mouth daily 7. Hypothyroidism. Levothyroxine 150 g daily 8. Hyperlipidemia. Lipitor 40 mg by mouth at bedtime 9. BPH. Flomax 0.4 mg by mouth daily 10. Abdominal pain. Lipase ordered, abdominal ultrasound ordered. 11. DVT prophylaxis heparin 5000 units subcu 12. GI prophylaxis Protonix 40 mg daily by mouth CODE STATUS: Full code Discharge plan: A minimum of 2 nights day, possible discharge Thursday home Impression and plan of care have been directed as dictated by the signing physician. Mei Yi nurse practitioner acting as scribe for signing physician. Objective - Vital Signs Vital signs: Vital Signs Temp 97.6 F 08/06/20 12:53 Pulse 65 08/06/20 12:53 Resp 16 08/06/20 12:53 BP 154/68 08/06/20 12:53 Pulse Ox 100 08/06/20 12:53 Intake & Output 08/05/20 08/06/20 08/06/20 18:59 06:59 18:59 Intake Total 110 420 Output Total 30 20 20 Balance 80 400 -20 Intake: IV 80 120 Sodium Chloride 0.9% 1, 80 120 000 ml @ 10 mls/hr IV . Q24H [facility] Rx#:[id number] Intake, IV Titration 30 Amount Sodium Chloride 0.9% 1, 30 000 ml @ 10 mls/hr IV . Q24H [facility] Rx#:[id number] Oral 300 Output: Urine 30 20 20 Other: Voiding Method Indwelling Catheter Indwelling Catheter Indwelling Catheter - Labs CBC & Chem 7: 08/06/20 06:22 08/06/20 06:22 Labs: Abnormal Lab Results - Last 24 Hours (Table) 08/05/20 08/05/20 08/05/20 Range/Units 13:58 17:00 18:14 RBC (4.30-5.90) m/uL Hgb (13.0-17.5) gm/dL Hct (39.0-53.0) % MCHC (31.0-37.0) g/dL RDW (11.5-15.5) % PT (9.0-12.0) sec INR (<1.2) Sodium (137-145) mmol/L Chloride (98-107) mmol/L BUN (9-20) mg/dL Creatinine (0.66-1.25) mg/dL Glucose (74-99) mg/dL POC Glucose (mg/dL) 168 H 163 H 176 H (75-99) mg/dL Calcium (8.4-10.2) mg/dL Total Protein (6.3-8.2) g/dL Albumin (3.5-5.0) g/dL 08/05/20 08/05/20 08/05/20 Range/Units 20:08 21:52 23:50 RBC (4.30-5.90) m/uL Hgb (13.0-17.5) gm/dL Hct (39.0-53.0) % MCHC (31.0-37.0) g/dL RDW (11.5-15.5) % PT (9.0-12.0) sec INR (<1.2) Sodium (137-145) mmol/L Chloride (98-107) mmol/L BUN (9-20) mg/dL Creatinine (0.66-1.25) mg/dL Glucose (74-99) mg/dL POC Glucose (mg/dL) 176 H 147 H 125 H (75-99) mg/dL Calcium (8.4-10.2) mg/dL Total Protein (6.3-8.2) g/dL Albumin (3.5-5.0) g/dL 08/06/20 08/06/20 08/06/20 Range/Units 02:02 04:42 06:18 RBC (4.30-5.90) m/uL Hgb (13.0-17.5) gm/dL Hct (39.0-53.0) % MCHC (31.0-37.0) g/dL RDW (11.5-15.5) % PT (9.0-12.0) sec INR (<1.2) Sodium (137-145) mmol/L Chloride (98-107) mmol/L BUN (9-20) mg/dL Creatinine (0.66-1.25) mg/dL Glucose (74-99) mg/dL POC Glucose (mg/dL) 112 H 104 H 114 H (75-99) mg/dL Calcium (8.4-10.2) mg/dL Total Protein (6.3-8.2) g/dL Albumin (3.5-5.0) g/dL 08/06/20 08/06/20 08/06/20 Range/Units 06:22 06:22 06:22 RBC 3.32 L (4.30-5.90) m/uL Hgb 10.0 L (13.0-17.5) gm/dL Hct 32.6 L (39.0-53.0) % MCHC 30.7 L (31.0-37.0) g/dL RDW 15.6 H (11.5-15.5) % PT 22.4 H (9.0-12.0) sec INR 2.3 H (<1.2) Sodium 130 L (137-145) mmol/L Chloride 92 L (98-107) mmol/L BUN 36 H (9-20) mg/dL Creatinine 6.82 H (0.66-1.25) mg/dL Glucose 111 H (74-99) mg/dL POC Glucose (mg/dL) (75-99) mg/dL Calcium 8.0 L (8.4-10.2) mg/dL Total Protein 5.9 L (6.3-8.2) g/dL Albumin 2.6 L (3.5-5.0) g/dL 08/06/20 08/06/20 08/06/20 Range/Units 07:22 10:06 12:16 RBC (4.30-5.90) m/uL Hgb (13.0-17.5) gm/dL Hct (39.0-53.0) % MCHC (31.0-37.0) g/dL RDW (11.5-15.5) % PT (9.0-12.0) sec INR (<1.2) Sodium (137-145) mmol/L Chloride (98-107) mmol/L BUN (9-20) mg/dL Creatinine (0.66-1.25) mg/dL Glucose (74-99) mg/dL POC Glucose (mg/dL) 104 H 131 H 131 H (75-99) mg/dL Calcium (8.4-10.2) mg/dL Total Protein (6.3-8.2) g/dL Albumin (3.5-5.0) g/dL Microbiology - Last 24 Hours (Table) 08/04/20 03:38 Blood Culture - Preliminary Blood No Growth after 48 hours 08/04/20 05:41 Urine Culture - Final Urine,Voided
[2020-08-06 14:13] LABS: Glucose,Whole Blood 142 mg/dL (75-99)
[2020-08-06 16:27] LABS: Glucose,Whole Blood 300 mg/dL (75-99)
[2020-08-06] MEDS: SODIUM CHLORIDE 0.9% 1,000 ML IV SCH (17:04)
[2020-08-06 18:25] LABS: Glucose,Whole Blood 109 mg/dL (75-99)
[2020-08-06 20:28] LABS: Glucose,Whole Blood 145 mg/dL (75-99)
[2020-08-06] MEDS: ATORVASTATIN 40 MG TAB PO SCH (21:04)
[2020-08-06 22:11] LABS: Glucose,Whole Blood 125 mg/dL (75-99)
[2020-08-06 22:21] VITALS: RESP 16
[2020-08-07 00:20] LABS: Glucose,Whole Blood 92 mg/dL (75-99)
[2020-08-07 03:35] LABS: Glucose,Whole Blood 106 mg/dL (75-99)
[2020-08-07 05:49] LABS: Glucose,Whole Blood 141 mg/dL (75-99)
[2020-08-07] MEDS: LEVOTHYROXINE 75 MCG TAB PO SCH (06:04)
[2020-08-07 08:09] LABS: Glucose,Whole Blood 143 mg/dL (75-99)
[2020-08-07 08:22] LABS: INR 2.1 (<1.2); Prothrombin Time 20.1 sec (9.0-12.0)
[2020-08-07] MEDS: INSULIN ASPART (NovoLOG) 100 UNIT/ML VIAL SQ SCH ×2 (09:08→14:18)
[2020-08-07] MEDS: INSULN ASP PRT/INSULIN ASPART 100 UNIT/ML 10 ML VIAL SQ SCH (09:08)
[2020-08-07] MEDS: FENOFIBRATE 160 MG TAB PO SCH (09:09)
[2020-08-07] MEDS: FOLIC ACID 1 MG TAB PO SCH (09:09)
[2020-08-07] MEDS: CALCIUM ACETATE 667 MG TAB PO SCH ×2 (09:09→14:17)
[2020-08-07] MEDS: TAMSULOSIN 0.4 MG CAP.ER.24H PO SCH (09:09)
[2020-08-07] MEDS: METOPROLOL TARTRATE 25 MG TAB PO SCH (09:10)
[2020-08-07] MEDS: FUROSEMIDE 80 MG TAB PO SCH (09:10)
[2020-08-07] MEDS: CHOLECALCIFEROL 1,000 UNIT TAB PO SCH (09:10)
[2020-08-07] MEDS: hydrALAZINE HCL 25 MG TAB PO SCH (09:10)
[2020-08-07] MEDS: PANTOPRAZOLE 40 MG TABLET PO SCH (09:10)
[2020-08-07] MEDS: amLODIPine 10 MG TAB PO SCH (09:10)
[2020-08-07] MEDS: LEVOFLOXACIN 250 MG TAB PO SCH (09:11)
[2020-08-07] MEDS: polyethylene glycoL 3350 17 GM POWD.PACK PO SCH (09:11)
[2020-08-07] MEDS: HEPARIN SODIUM,PORCINE 5,000 UNIT/ML 1 ML VIAL SQ SCH (09:12)
--- NOTE | 2020-08-07 09:14 | P.PN ---
Subjective patient is seen in follow-up for incisional disease. He is maintained on hemodialysis on Thursday schedule. Blood sugars are well c ontrolled. Tolerated dialysis well yesterday. No active complaints. Vital signs are stable. General: The patient appeared well nourished and normally developed. HEENT: Head exam is unremarkable. Neck is without jugular venous distension. LUNGS: Lungs are clear to auscultation and percussion. Breath sounds decreased. HEART: Rate and Rhythm are regular. ABDOMEN: Soft, nontender. EXTREMITITES: No clubbing, cyanosis, or edema. Objective - Vital Signs Vital signs: Vital Signs Temp 97.6 F 08/07/20 04:39 Pulse 66 08/07/20 04:39 Resp 16 08/07/20 04:39 BP 136/59 08/07/20 04:39 Pulse Ox 97 08/07/20 04:39 Intake & Output 08/06/20 08/07/20 08/07/20 18:59 06:59 18:59 Intake Total 80 Output Total 2220 20 Balance -2139 Intake: Intake, IV Titration 80 Amount Sodium Chloride 0.9% 1, 80 000 ml @ 10 mls/hr IV . Q24H [facility] Rx#:[id number] Output: Urine 20 Hemodialysis 2199 Other: Voiding Method Indwelling Catheter Indwelling Catheter Indwelling Catheter # Voids 2 # Bowel Movements 0 - Labs CBC & Chem 7: 08/06/20 06:22 08/06/20 06:22 Labs: Abnormal Lab Results - Last 24 Hours (Table) 08/06/20 08/06/20 08/06/20 Range/Units 10:06 12:16 14:11 PT (9.0-12.0) sec INR (<1.2) POC Glucose (mg/dL) 131 H 131 H 142 H (75-99) mg/dL TSH (0.465-4.680) mIU/L 08/06/20 08/06/20 08/06/20 Range/Units 16:25 18:19 19:53 PT (9.0-12.0) sec INR (<1.2) POC Glucose (mg/dL) 300 H 109 H 145 H (75-99) mg/dL TSH (0.465-4.680) mIU/L 0908/07/20 08/07/20 Range/Units 22:09 03:33 05:47 PT (9.0-12.0) sec INR (<1.2) POC Glucose (mg/dL) 125 H 106 H 141 H (75-99) mg/dL TSH (0.465-4.680) mIU/L 08/07/20 08/07/20 08/07/20 Range/Units 07:27 07:27 08:07 PT 20.1 H (9.0-12.0) sec INR 2.1 H (<1.2) POC Glucose (mg/dL) 143 H (75-99) mg/dL TSH 5.500 H (0.465-4.680) mIU/L Microbiology - Last 24 Hours (Table) 08/04/20 03:38 Blood Culture - Preliminary Blood No Growth after 72 hours Assessment and Plan Plan: Assessment: 1. End-stage renal disease maintained on hemodialysis on Thursday schedule. 2. Hypoglycemia, resolved. Insulin adjusted. 3. Hypertension with chronic kidney disease. Controlled. 4. Chronic kidney disease mineral bone disease maintained on PhosLo. 5. Insulin-dependent diabetes mellitus. Plan: Hemodialysis tomorrow. Stable for discharge from nephrology standpoint.
[2020-08-07 09:57] LABS: Glucose,Whole Blood 137 mg/dL (75-99)
[2020-08-07 11:40] VITALS: BP 120/64; PULSE 50; TEMP 97.4
[2020-08-07 11:44] LABS: T4, Free (Free Thyroxine) 2.77 ng/dL (0.78-2.19)
[2020-08-07 11:56] LABS: Glucose,Whole Blood 65 mg/dL (75-99)
[2020-08-07 12:53] LABS: Glucose,Whole Blood 66 mg/dL (75-99)
[2020-08-07 12:53] LABS: Glucose,Whole Blood 92 mg/dL (75-99)
--- NOTE | 2020-08-07 15:40 | EEG ---
ELECTROENCEPHALOGRAM REPORT EEG REPORT: DATE OF SERVICE: 08/07/2020 CLINICAL HISTORY: This is a 74-year-old gentleman with history of diabetes that presented to the emergency department on 08/04/2020 because of feeling diaphoretic. Patient's blood sugar was low (40's). In the ED, the patient had an episode of loss of consciousness and eyes rolling back, concerning for seizure. This video EEG was obtained to evaluate for seizure and epileptiform activity. RELEVANT MEDICATION: No any centrally active medication. EEG TYPE: A 21 channel routine EEG recording utilizing the 10-20 international system with referential and bipolar montage. DESCRIPTION: Wakefulness, drowsiness and stage 2 sleep are obtained. During wakefulness, there is a posterior dominant rhythm of low to moderate voltage that is 7-7.5 hertz. During drowsiness there is slowing and attenuation of the background activity. During stage 2 sleep, there are sleep spindles and K complexes. There is occasional myogenic artifact predominantly over the bilateral temporal hemisphere. Interictal and ictal is none. ACTIVATION PROCEDURE: Photic stimulation did not evoke a positive driving response. Hyperventilation was not performed because of the patient clinical history. CLINICAL INTERPRETATION: This routine awake EEG is suggestive of mild encephalopathy of unspecified etiology. There is no focal slowing, interictal or seizure activity during this recording. There is occasional myogenic artifact seen during the study. Clinical correlation is recommended. CHARLEY / LUANAN: [id number] / MTDD
--- NOTE | 2020-08-08 14:46 | P.DS ---
Providers Date of admission: 08/04/20 14:48 Expected date of discharge: 08/07/20 Attending physician: Anitha Pressley Consults: 08/04/20 08:23 Consult Physician Routine Consulting Provider: Nhung Oropeza Consult Reason/Comments: Hemodialysis patient Do you want consulting provider notified?: Yes 08/04/20 08:26 Consult Physician Routine Consulting Provider: Aleksander Sandoval Consult Reason/Comments: elevated troponin Do you want consulting provider notified?: Yes 08/04/20 14:18 Consult Physician Routine Consulting Provider: Rafi Joshua Consult Reason/Comments: ro seizure Do you want consulting provider notified?: Yes 08/04/20 14:20 Consult Physician Urgent Consulting Provider: Alex Spaulding Consult Reason/Comments: intensivisit Do you want consulting provider notified?: Yes [facility] Course: This is a 74-year-old -[place] gentleman patient of Dr. Vidales with a past medical history significant for end-stage renal failure on dialysis Thursday, hyperlipidemia, hypertension, hypothyroid, previous EtOH abuse. Denies smoking. Patient lives alone and family comes to see him. Patient was brought into the emergency room via EMS. When EMS arrived on scene they stated that the patient was unable to tell them what was going on he was confused and diaphoretic. Blood sugar was 41 and was given oral glucose. The patient arrived to the hospital he remained not feeling well and diaphoretic. Patient states that while he was at home he began to feel sweaty and not well so he called EMS. Patient states that he ate approximate one hour prior to taking his insulin. Patient states that [facility] [place] for the same symptoms. Patient decided to come to the nearest hospital because of his symptoms. Patient states that his daughter will be in this afternoon with his medication list and health problems. 08/05: Patient was transferred to ICU for one-on-one monitoring due to confusion and blood sugar monitoring. Patient was on Accu-Cheks every hour which has resolved to Accu-Cheks before meals at bedtime. Patient is on a sliding scale. At this time patient is sitting up in bed resting comfortably in no acute distress. Patient is able to answer questions appropriately. Patient states that he takes NovoLog 70 3036 units in the morning and 26 units in the evening. Patient is complaining of abdominal pain and discomfort. Denies any nausea vomiting diarrhea or constipation. Patient has been afebrile, pulse rate 58, respirations 25, blood pressure 169/78, pulse ox 98% on room air. W BC 8.4, hemoglobin 10.4, BUN 28, creatinine 5.61. Patient will be scheduled for hemodialysis on Thursday. 08/06: Patient is sitting up in bed resting comfortably without any acute distress. Patient is able to answer questions appropriately and is not as confused compared to yesterday. Patient continues to be on sliding scales with meals and he is able to tolerate 100% of his meals. Patient has no complaints or concerns at this time. W BC 7.6, hemoglobin 10.0, sodium 1:30, potassium 4.7, BUN 36, creatinine 6.82 patient to have dialysis today. 08/07:patient underwent hemodialysis yesterday with plan to resume his normal schedule of Thursday.he has been cleared for discharge by nephrology. Patient states that he lives with his son-in-law.EEG is suggestive of mild encephalopathy of unspecified etiology.patient is afebrile, heart rate 50, blood pressure 120/64, pulse ox 99% on room air.blood sugars are running 66- 92. NovoLog Mix 70/30 will be decreased to 4 units twice daily Patient will be discharged home today in stable condition. Echocardiogram impression: EF 55-60%, mild mitral regurgitation, mild to moderate tricuspid regurgitation. Mild to moderate pulmonary hypertension. Right ventricular systolic pressure measured with Doppler 43.4-9 m mercury Discharge diagnoses 1. Hypoglycemia with metabolic encephalopathy 2. Catheter associated UTI from self-catheterization. 3. Diabetes mellitus uncontrolled with episodes of hypoglycemia. 4. Elevated troponin, acute coronary syndrome ruled out. 5. End-stage renal failure with dialysis Thursday. 6. Hypertension. 7. Hypothyroidism. 8. Hyperlipidemia. 9. BPH. 10. Abdominal pain. Discharge plan: home Impression and plan of care have been directed as dictated by the signing physician. Carmina Collins nurse practitioner acting as scribe for signing physician. Patient Condition at Discharge: Good Plan - Discharge Summary Discharge Rx Participant: No New Discharge Prescriptions: New hydrALAZINE HCL [Apresoline] 25 mg PO TID tab Tamsulosin [Flomax] 0.4 mg PO DAILY #30 cap.er.24h Furosemide [Lasix] 80 mg PO BID@0900,1600 tab Levofloxacin [Levaquin] 250 mg PO DAILY tab Atorvastatin [Lipitor] 40 mg PO HS tab Fenofibrate [Lofibra] 160 mg PO DAILY tab Metoprolol Tartrate [Lopressor] 25 mg PO BID tab polyethylene glycoL 3350 [Miralax] 17 gm PO DAILY powd.pack amLODIPine [Norvasc] 10 mg PO DAILY tab INSULIN ASPART (NovoLOG) [NovoLOG (formulary)] 0 unit SQ ACHS vial Insuln Asp Prt/Insulin Aspart [NovoLOG MIX 70-30 VIAL] 10 unit SQ AC-BRKFST vial Insuln Asp Prt/Insulin Aspart [NovoLOG MIX 70-30 VIAL] 6 unit SQ AC-SUPPER vial oxyCODONE HCL [OxyIR] 5 mg PO Q4H PRN tab PRN Reason: Pain Pantoprazole [Protonix] 40 mg PO DAILY@0730 tablet. Levothyroxine Sodium [Synthroid] 150 mcg PO DAILY@0630 tab Insuln Asp Prt/Insulin Aspart [NovoLOG MIX 70-30 VIAL] 4 unit SQ AC-BID #1 vial Continue Cholecalciferol [Vitamin D3 (25 Mcg = 1000 Iu)] 1,000 unit PO DAILY Folic Acid 0.4 mg PO DAILY Acetaminophen Tab [Tylenol] 650 mg PO Q6H PRN PRN Reason: Pain Clotrimazole/Betamethasone Dip [Lotrisone Cream] 1 applic TOPICAL BID Calcium Acetate [PhosLo] 667 mg PO AC-TID Discharge Medication List Acetaminophen Tab [Tylenol] 650 mg PO Q6H PRN 11/04/19 [History] Cholecalciferol [Vitamin D3 (25 Mcg = 1000 Iu)] 1,000 unit PO DAILY 11/04/19 [History] Folic Acid 0.4 mg PO DAILY 11/04/19 [History] Calcium Acetate [PhosLo] 667 mg PO AC-TID 08/04/20 [History] Clotrimazole/Betamethasone Dip [Lotrisone Cream] 1 applic TOPICAL BID 08/04/20 [History] Atorvastatin [Lipitor] 40 mg PO HS tab 08/07/20 [Rx] Fenofibrate [Lofibra] 160 mg PO DAILY tab 09/08/20 [Rx] Furosemide [Lasix] 80 mg PO BID@0900,1600 tab 08/07/20 [Rx] INSULIN ASPART (NovoLOG) [NovoLOG (formulary)] 0 unit SQ ACHS vial 08/07/20 [Rx] Insuln Asp Prt/Insulin Aspart [NovoLOG MIX 70-30 VIAL] 4 unit SQ AC-BID #1 vial 08/07/20 [Rx] Insuln Asp Prt/Insulin Aspart [NovoLOG MIX 70-30 VIAL] 6 unit SQ AC-SUPPER vial 08/07/20 [Rx] Insuln Asp Prt/Insulin Aspart [NovoLOG MIX 70-30 VIAL] 10 unit SQ AC-BRKFST vial 08/07/20 [Rx] Levofloxacin [Levaquin] 250 mg PO DAILY tab 08/07/20 [Rx] Levothyroxine Sodium [Synthroid] 150 mcg PO DAILY@0630 tab 08/07/20 [Rx] Metoprolol Tartrate [Lopressor] 25 mg PO BID tab 08/07/20 [Rx] Pantoprazole [Protonix] 40 mg PO DAILY@0730 tablet. 08/07/20 [Rx] Tamsulosin [Flomax] 0.4 mg PO DAILY #30 cap.er.24h 08/07/20 [Rx] amLODIPine [Norvasc] 10 mg PO DAILY tab 08/07/20 [Rx] hydrALAZINE HCL [Apresoline] 25 mg PO TID tab 08/07/20 [Rx] oxyCODONE HCL [OxyIR] 5 mg PO Q4H PRN tab 08/07/20 [Rx] polyethylene glycoL 3350 [Miralax] 17 gm PO DAILY powd.pack 08/07/20 [Rx] Follow up Appointment(s)/Referral(s): Harris Vidales DO [Primary Care Provider] - 1 Week (office to call you with appt. time and date.) Dayne Salinas DO [STAFF PHYSICIAN] - 08/16/20 11:20 am Patient Instructions/Handouts: Tamsulosin (By mouth), Hypoglycemia in a Person with Diabetes (DC) Activity/Diet/Wound Care/Special Instructions: Hemodialysis as previously scheduled. [facility] Thursday/Thursday/Thursday at 9:45a.m. Monitor blood glucose level 3 times daily and write down the results. Take results to Primary Care Physician at follow-up appt. Discharge Disposition: HOME SELF-CARE
== END 2020-08-07 14:49 | disposition home or self-care (01) | DRG 698 ==
LOC: EC 02:23 → 3SCARD 08:22 → OBSVTOIN 14:48 → 2SICU 14:53 → 6NMEDSUR 08-05 19:07
PROVIDERS: ADMIT Family Medicine; ATTEND Family Medicine
PROC: 5A1D70Z Performance of Urinary Filtration, Intermittent, Less than 6 Hours Per Day (ICD-10-PCS; principal; 2020-08-04)
DX: T83.518A Infection and inflammatory reaction due to other urinary catheter, initial encounter (principal); G92 Toxic encephalopathy; N18.6 End stage renal disease; N39.0 Urinary tract infection, site not specified; D68.9 Coagulation defect, unspecified; E87.1 Hypo-osmolality and hyponatremia; I48.21 Permanent atrial fibrillation; I12.0 Hypertensive chronic kidney disease with stage 5 chronic kidney disease or end stage renal disease; E87.2 Acidosis; E11.649 Type 2 diabetes mellitus with hypoglycemia without coma; T38.3X5A Adverse effect of insulin and oral hypoglycemic [antidiabetic] drugs, initial encounter; Y84.6 Urinary catheterization as the cause of abnormal reaction of the patient, or of later complication, without mention of misadventure at the time of the procedure; I27.20 Pulmonary hypertension, unspecified; E03.9 Hypothyroidism, unspecified; E78.5 Hyperlipidemia, unspecified; D63.1 Anemia in chronic kidney disease; E11.22 Type 2 diabetes mellitus with diabetic chronic kidney disease; R56.9 Unspecified convulsions; I08.1 Rheumatic disorders of both mitral and tricuspid valves; E83.89 Other disorders of mineral metabolism; N40.0 Benign prostatic hyperplasia without lower urinary tract symptoms; Z99.2 Dependence on renal dialysis; Z87.891 Personal history of nicotine dependence; Z87.440 Personal history of urinary (tract) infections; Z98.890 Other specified postprocedural states; Z82.49 Family history of ischemic heart disease and other diseases of the circulatory system; Z79.899 Other long term (current) drug therapy; Z83.3 Family history of diabetes mellitus; Z79.4 Long term (current) use of insulin
CPT/HCPCS: 36415; 70450; 71045; 76700; 80053; 80306; 81001; 82533; 82607; 83605; 83690; 84439; 84443; 84484; 85025; 85610; 85730; 87040; 87086; 93005; 93306; 93880; 95816; 96365; 96366; 96375; 99285

== ENCOUNTER → 2021-05-23 | Outpatient (CLI) | payer MEDICARE ==
--- NOTE | 2021-05-23 13:02 | XR ---
Right toes HISTORY: Wound right great toe 3 views of the first digit of the right foot There is a soft tissue defect consistent with patient's history of nonhealing wound. There is some mi ld arthropathy change at the interphalangeal joint, metatarsophalangeal joint of the first digit. The re are vascular calcifications within the soft tissues. No evident fracture or dislocation. Question some osteopenia at the level of the tuft of the first digit. There is no periostitis to suggest osteo myelitis. IMPRESSION: Correlate for cellulitis. Difficult to exclude osteomyelitis.
== END | disposition home or self-care (01) ==
LOC: RADXRMAIN 11:08
PROVIDERS: ATTEND Family Medicine
DX: E11.621 Type 2 diabetes mellitus with foot ulcer (principal)

== ENCOUNTER → 2021-05-30 | Outpatient (CLI) | payer MEDICARE ==
--- NOTE | 2021-05-30 14:40 | US ---
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 SIDE PERFORMED: Right TECHNIQUE: The lower extremity deep venous system is examined utilizing real time linear array sonog lc with graded compression, doppler sonography and color-flow sonography. VESSELS IMAGED: Common Femoral Vein Deep Femoral Vein Greater Saphenous Vein * Femoral Vein Popliteal Vein Small Saphenous Vein * Proximal Calf Veins (* superficial vessels) Right Leg: Negative for DVT IMPRESSION: 1. No evidence of deep venous thrombosis in the right lower extremity veins.
== END | disposition home or self-care (01) ==
LOC: RADUSWWP 10:55
PROVIDERS: ATTEND Family Medicine
DX: E11.621 Type 2 diabetes mellitus with foot ulcer (principal); L97.519 Non-pressure chronic ulcer of other part of right foot with unspecified severity; S91.101A Unspecified open wound of right great toe without damage to nail, initial encounter
CPT/HCPCS: 93923

== ENCOUNTER 2021-08-20 12:12 | Inpatient (IN) | payer MEDICARE ==
[2021-08-20] MEDS ORDERED: cefTRIAXone IN SWFI 1,000 MG/10 ML SYRINGE IVP STA (13:11)
[2021-08-20] MEDS ORDERED: CLINDAMYCIN 600 MG in DEXTROSE 5% IN WATER 50 ML IVPB STA ×2 (13:11)
--- NOTE | 2021-08-20 13:14 | ED ---
General Adult HPI - General Chief complaint: Wound/Laceration Stated complaint: rt foot diabetic wound Time Seen by Provider: 08/20/21 13:05 Source: patient, RN notes reviewed, old records reviewed Mode of arrival: ambulatory Limitations: no limitations - History of Present Illness Initial comments: 76-year-old male presents for evaluation of right foot infection patient was sent in by home care nursing. He has been following with the wound center and had been on oral antibiotics. This infection has not been healing. Patient does report some pain and swelling of the foot and leg. He denies recent injury. Denies fever. - Related Data Home Medications Medication Instructions Recorded Confirmed Folic Acid 0.4 mg PO DAILY 11/04/19 08/20/21 Calcium Acetate [PhosLo] 667 mg PO AC-TID 08/04/20 08/20/21 Bumetanide [Bumex] 1 mg PO WESA@2100 08/20/21 08/20/21 Bumetanide [Bumex] 2 mg PO WESA@0900 08/20/21 08/20/21 Collagenase [Santyl] 1 applic TOPICAL DAILY 08/20/21 08/20/21 Dakins 1 applic TOPICAL DAILY 08/20/21 08/20/21 Fenofibrate Nanocrystallized 145 mg PO DAILY 08/20/21 08/20/21 [Fenofibrate] Latanoprost [Xalatan 0.005%] 1 drop BOTH EYES HS 08/20/21 08/20/21 Midodrine [ProAmatine] 5 mg PO BID PRN 08/20/21 08/20/21 Rivaroxaban [Xarelto] 15 mg PO DAILY 08/20/21 08/20/21 carvediloL [Coreg] 3.125 mg PO BID 08/20/21 08/20/21 Previous Rx's Medication Instructions Recorded Atorvastatin [Lipitor] 40 mg PO HS tab 08/07/20 Furosemide [Lasix] 80 mg PO BID@0900,1600 tab 08/07/20 Insuln Asp Prt/Insulin Aspart 4 unit SQ AC-BID #1 vial 08/07/20 [NovoLOG MIX 70-30 VIAL] Levothyroxine Sodium [Synthroid] 150 mcg PO DAILY@0630 tab 08/07/20 Metoprolol Tartrate [Lopressor] 25 mg PO BID tab 08/07/20 Pantoprazole [Protonix] 40 mg PO DAILY@0730 tablet. 08/07/20 Tamsulosin [Flomax] 0.4 mg PO DAILY #30 cap.er.24h 08/07/20 hydrALAZINE HCL [Apresoline] 25 mg PO TID tab 08/07/20 Allergies Allergy/AdvReac Type Severity Reaction Status Date / Time No Known Allergies Allergy Verified 08/20/21 13:53 Review of Systems ROS Statement: Those systems with pertinent positive or pertinent negative responses have been documented in the HPI. ROS Other: All systems not noted in ROS Statement are negative. Past Medical History Past Medical History: Dialysis, Hyperlipidemia, Hypertension, Renal Disease, Thyroid Disorder Additional Past Medical History / Comment(s): CAPD every 6 hours 2.5 %, a week ago couldn't urinate and had a calhoun, anemia ovver a week ago had to have blood transfusion, legs sometimes go out and buckle per pt History of Any Multi-Drug Resistant Organisms: ESBL Date of last positivie culture/infection: 05/23/21 MDRO Source:: Right First Toe Past Surgical History: No Surgical Hx Reported Additional Past Surgical History / Comment(s): placement of peritoneal dialysis catheter and repair of umbilical hernia 07/2017, colonoscopy with polypectomy in the distant past. Past Anesthesia/Blood Transfusion Reactions: No Reported Reaction Past Psychological History: No Psychological Hx Reported Smoking Status: Never smoker Past Alcohol Use History: None Reported Past Drug Use History: None Reported - Past Family History Father Family Medical History: Myocardial Infarction (ID) ( at 45) Additional Family Medical History / Comment(s): patient has 3 brothers and one sister is relatively healthy has chronic back problems patient has 5 children that are healthy with no kidney diabetes or coronary artery disease. Mother Family Medical History: Coronary Artery Disease (CAD), Diabetes Mellitus ( at 67) General Exam Limitations: no limitations General appearance: alert, in no apparent distress Head exam: Present: atraumatic, normocephalic Eye exam: Present: normal appearance, PERRL ENT exam: Present: normal exam Neck exam: Present: normal inspection. Absent: tenderness, meningismus Respiratory exam: Present: normal lung sounds bilaterally. Absent: respiratory distress, wheezes Cardiovascular Exam: Present: regular rate, normal rhythm GI/Abdominal exam: Present: soft. Absent: distended, tenderness, guarding Extremities exam: Present: other (Soft tissue swelling, ulceration on the lateral right foot and the plantar surface of the right great toe.) Neurological exam: Present: alert, oriented X3 Psychiatric exam: Present: normal affect, normal mood Skin exam: Present: warm, dry Course Vital Signs 08/20/21 12:46 Temperature 97.3 F L Pulse Rate 61 Respiratory 17 Rate Blood Pressure 139/69 O2 Sat by Pulse 100 Oximetry Medical Decision Making - Medical Decision Making Patient admitted for IV antibiotics, both infectious disease and nephrology are been placed on consult. Case discussed with Dr. Walter who will admit. - Lab Data Result diagrams: 08/20/21 14:41 08/20/21 14:35 Lab Results 08/20/21 08/20/21 08/20/21 Range/Units 14:35 14:35 14:41 WBC 10.4 (3.8-10.6) k/uL RBC 3.23 L (4.30-5.90) m/uL Hgb 10.3 L (13.0-17.5) gm/dL Hct 32.9 L (39.0-53.0) % MCV 101.9 H (80.0-100.0) fL MCH 32.0 (25.0-35.0) pg MCHC 31.4 (31.0-37.0) g/dL RDW 14.3 (11.5-15.5) % Plt Count 250 (150-450) k/uL MPV 8.4 Neutrophils % 80 % Lymphocytes % 9 % Monocytes % 7 % Eosinophils % 3 % Basophils % 1 % Neutrophils # 8.3 H (1.3-7.7) k/uL Lymphocytes # 0.9 L (1.0-4.8) k/uL Monocytes # 0.7 (0-1.0) k/uL Eosinophils # 0.3 (0-0.7) k/uL Basophils # 0.1 (0-0.2) k/uL Hypochromasia Slight Macrocytosis Slight Sodium 135 L (137-145) mmol/L Potassium 4.5 (3.5-5.1) mmol/L Chloride 94 L (98-107) mmol/L Carbon Dioxide 28 (22-30) mmol/L Anion Gap 13 mmol/L BUN 29 H (9-20) mg/dL Creatinine 7.49 H* (0.66-1.25) mg/dL Est GFR (CKD-EPI)AfAm 7 (>60 ml/min/1.73 sqM) Est GFR (CKD-EPI)NonAf 6 (>60 ml/min/1.73 sqM) Glucose 176 H (74-99) mg/dL Plasma Lactic Acid Gilberto 1.0 (0.7-2.0) mmol/L Calcium 9.2 (8.4-10.2) mg/dL Magnesium 1.9 (1.6-2.3) mg/dL Total Bilirubin 1.8 H (0.2-1.3) mg/dL AST 15 L (17-59) U/L ALT 7 (4-49) U/L Alkaline Phosphatase 117 (38-126) U/L Total Protein 7.4 (6.3-8.2) g/dL Albumin 3.7 (3.5-5.0) g/dL Disposition Clinical Impression: Cellulitis, Failure of outpatient treatment, Foot ulcer Disposition: ADMITTED IP TO THIS [facility] Condition: Stable Is patient prescribed a controlled substance at d/c from ED?: No Referrals: Rudy Christian MD [Primary Care Provider] - 1-2 days Decision to Admit Reason: Admit from EC Decision Date: 08/20/21 Decision Time: 16:12
--- NOTE | 2021-08-20 13:56 | XR ---
EXAMINATION TYPE: XR foot complete RT DATE OF EXAM: 08/20/2021 COMPARISON: NONE HISTORY: Nonhealing wound great toe TECHNIQUE: Three views are submitted. FINDINGS: Arthropathy of the first MTP with soft tissue defect involving the distal margin of the first digit. Vascular calcifications are noted. Demineralization of the tarsal distal phalanx first digit. IMPRESSION: 1. Soft tissue wound first digit. Suspect early osteomyelitis tuft distal phalanx first digit right f oot.
[2021-08-20 14:45] LABS: Basophils # (A) 0.1 k/uL (0-0.2); Basophils % (A) 1 %; Eosinophils # (A) 0.3 k/uL (0-0.7); Eosinophils % (A) 3 %; HCT 32.9 % (39.0-53.0); HGB 10.3 gm/dL (13.0-17.5); Hypochromasia Slight; Lymphocytes # (A) 0.9 k/uL (1.0-4.8); Lymphocytes % (A) 9 %; MCHC 31.4 g/dL (31.0-37.0); MCV 101.9 fL (80.0-100.0); Macrocytosis Slight; Mean Platelet Volume 8.4; Monocytes # (A) 0.7 k/uL (0-1.0); Monocytes % (A) 7 %; Neutrophils # (A) 8.3 k/uL (1.3-7.7); Neutrophils % (A) 80 %; Platelet Count 250 k/uL (150-450); RBC 3.23 m/uL (4.30-5.90); RDW 14.3 % (11.5-15.5); WBC 10.4 k/uL (3.8-10.6)
--- NOTE | 2021-08-20 14:47 | US ---
EXAMINATION TYPE: US venous doppler duplex LE RT DATE OF EXAM: 08/20/2021 2:11 PM COMPARISON: NONE CLINICAL HISTORY: dvt. SIDE PERFORMED: Left TECHNIQUE: The lower extremity deep venous system is examined utilizing real time linear array sonog lc with graded compression, doppler sonography and color-flow sonography. VESSELS IMAGED: Common Femoral Vein Deep Femoral Vein Greater Saphenous Vein * Femoral Vein Popliteal Vein Small Saphenous Vein * Proximal Calf Veins (* superficial vessels) Right Leg: Negative for DVT IMPRESSION: Grayscale, color doppler, spectral doppler imaging performed of the deep veins of the lo wer extremities. There is normal flow, compressibility, vascular waveforms.
[2021-08-20 14:55] LABS: Albumin 3.7 g/dL (3.5-5.0); Calcium 9.2 mg/dL (8.4-10.2); Magnesium 1.9 mg/dL (1.6-2.3); Potassium 4.5 mmol/L (3.5-5.1); Total Bilirubin 1.8 mg/dL (0.2-1.3); Total Protein 7.4 g/dL (6.3-8.2)
[2021-08-20] MEDS ORDERED: NALOXONE 0.4 MG/ML 1 ML VIAL IV PRN (16:09)
[2021-08-20] MEDS: ACETAMINOPHEN TAB 325 MG TAB PO PRN (19:48)
[2021-08-20] MEDS ORDERED: ERTAPENEM 0.5 GM in SODIUM CHLORIDE 0.9% 50 ML IVPB SCH (22:00)
--- NOTE | 2021-08-20 22:24 | P.CONS ---
History of Present Illness - Reason for Consult Consult date: 08/20/21 Right big toe wound infection Requesting physician: Andrade Walter - Chief Complaint Nonhealing right big toe wound x weeks - History of Present Illness Patient is a 76-year-old -[place] man with a past medical history significant for end-stage renal disease on hemodialysis patient apparently did have a nonhealing wound to the right big toe which has been there for couple of weeks now, and has been treated outpatient setting some oral antibiotics once cultures from the same site has been showing ESBL E. coli and Enterococcus faecalis and is not clear what antibiotic the patient was given however the home care nurse noticed worsening of his right big toe wound with some swelling redness of the right leg and concern for cellulitis for the symptoms the patient has been sent to the ER for further evaluation on arrival to the ER the patient was afebrile did have a normal white count patient did have x-rays of the right foot with tissues early osteomyelitis changes in the tuft of the distal phalanx of the right big toe patient was given a dose of Rocephin and clindamycin sequelae the patient has been admitted to the hospital infectious disease was consulted for further management of antibiotic therapy most information has been obtained from review the chart as the patient is time of evaluation was sleepy lethargic and did not answer single questions Review of Systems Positive points has been mentioned in HPI complete review could not be obtained because of his underlying mental status Past Medical History Past Medical History: Dialysis, Hyperlipidemia, Hypertension, Renal Disease, Thyroid Disorder Additional Past Medical History / Comment(s): CAPD every 6 hours 2.5 %, a week ago couldn't urinate and had a calhoun, anemia ovver a week ago had to have blood transfusion, legs sometimes go out and buckle per pt History of Any Multi-Drug Resistant Organisms: ESBL Year Discovered:: 05/23/21 MDRO Source:: Right First Toe Past Surgical History: No Surgical Hx Reported Additional Past Surgical History / Comment(s): placement of peritoneal dialysis catheter and repair of umbilical hernia 07/2017, colonoscopy with polypectomy in the distant past. Past Anesthesia/Blood Transfusion Reactions: No Reported Reaction Past Psychological History: No Psychological Hx Reported Smoking Status: Never smoker Past Alcohol Use History: None Reported Past Drug Use History: None Reported - Past Family History Father Family Medical History: Myocardial Infarction (OR) ( at 45) Additional Family Medical History / Comment(s): patient has 3 brothers and one sister is relatively healthy has chronic back problems patient has 5 children that are healthy with no kidney diabetes or coronary artery disease. Mother Family Medical History: Coronary Artery Disease (CAD), Diabetes Mellitus ( at 67) Medications and Allergies Home Medications Medication Instructions Recorded Confirmed Type Folic Acid 0.4 mg PO DAILY 11/04/19 08/20/21 History Calcium Acetate [PhosLo] 667 mg PO AC-TID 08/04/20 08/20/21 History Atorvastatin [Lipitor] 40 mg PO HS tab 08/07/20 08/20/21 Rx Furosemide [Lasix] 80 mg PO BID@0900,1600 tab 08/07/20 08/20/21 Rx Insuln Asp Prt/Insulin Aspart 4 unit SQ AC-BID #1 vial 08/07/20 08/20/21 Rx [NovoLOG MIX 70-30 VIAL] Levothyroxine Sodium [Synthroid] 150 mcg PO DAILY@0630 tab 08/07/20 08/20/21 Rx Metoprolol Tartrate [Lopressor] 25 mg PO BID tab 08/07/20 08/20/21 Rx Pantoprazole [Protonix] 40 mg PO DAILY@0730 tablet.dr 08/07/20 08/20/21 Rx Tamsulosin [Flomax] 0.4 mg PO DAILY #30 cap.er.24h 08/07/20 08/20/21 Rx hydrALAZINE HCL [Apresoline] 25 mg PO TID tab 08/07/20 08/20/21 Rx Bumetanide [Bumex] 1 mg PO WESA@2100 08/20/21 08/20/21 History Bumetanide [Bumex] 2 mg PO WESA@0900 08/20/21 08/20/21 History Collagenase [Santyl] 1 applic TOPICAL DAILY 08/20/21 08/20/21 History Dakins 1 applic TOPICAL DAILY 08/20/21 08/20/21 History Fenofibrate Nanocrystallized 145 mg PO DAILY 08/20/21 08/20/21 History [Fenofibrate] Latanoprost [Xalatan 0.005%] 1 drop BOTH EYES HS 08/20/21 08/20/21 History Midodrine [ProAmatine] 5 mg PO BID PRN 08/20/21 08/20/21 History Rivaroxaban [Xarelto] 15 mg PO DAILY 08/20/21 08/20/21 History carvediloL [Coreg] 3.125 mg PO BID 08/20/21 08/20/21 History Allergies Allergy/AdvReac Type Severity Reaction Status Date / Time No Known Allergies Allergy Verified 08/20/21 13:53 Physical Exam Vitals: Vital Signs Temp Pulse Resp BP Pulse Ox 08/20/21 19:52 97.4 F L 60 18 137/67 97 08/20/21 12:46 97.3 F L 61 17 139/69 100 Intake and Output 08/20/21 08/20/21 08/20/21 06:59 14:59 22:59 Other: Weight 102.965 kg GENERAL DESCRIPTION: An elderly male lying in bed, no distress. No tachypnea or accessory muscle of respiration use. HEENT: Shows Pallor , no scleral icterus. Oral mucous membrane is dry. No ph aryngeal erythema or thrush NECK: Trachea central, no thyromegaly. LUNGS: Unlabored breathing. Clear to auscultation anteriorly. No wheeze or crackle. HEART: S1, S2, regular rate and rhythm. No loud murmur ABDOMEN: Soft, no tenderness , guarding or rigidity, no organomegaly EXTREMITIES: Right big toe tip wound with some slough tissue there is some swelling with swelling and redness of the right leg slightly warm to touch. SKIN: No rash, no masses palpable. NEUROLOGICAL: The patient is sleepy lethargic and orientation could not be determined Results CBC & Chem 7: 08/20/21 14:41 08/20/21 14:35 Labs: Abnormal Lab Results - Last 24 Hours (Table) 08/20/21 08/20/21 Range/Units 14:35 14:41 RBC 3.23 L (4.30-5.90) m/uL Hgb 10.3 L (13.0-17.5) gm/dL Hct 32.9 L (39.0-53.0) % MCV 101.9 H (80.0-100.0) fL Neutrophils # 8.3 H (1.3-7.7) k/uL Lymphocytes # 0.9 L (1.0-4.8) k/uL Sodium 135 L (137-145) mmol/L Chloride 94 L (98-107) mmol/L BUN 29 H (9-20) mg/dL Creatinine 7.49 H* (0.66-1.25) mg/dL Glucose 176 H (74-99) mg/dL Total Bilirubin 1.8 H (0.2-1.3) mg/dL AST 15 L (17-59) U/L Assessment and Plan Assessment: Patient with right big toe nonhealing wound with the patient has for a couple of weeks to ends currently getting treated at [facility] [place] patient last wound culture were positive for ESBL E. coli and enterococcus and currently the patient has been treated with oral antibiotic without any improvement with the x-rays of the right foot did show show evidence of osteomyelitis of the distal phalanx of the right big toe (1) Osteomyelitis of toe of right foot Current Visit: Yes Status: Acute Code(s): M86.9 - OSTEOMYELITIS, UNSPECIFIED SNOMED Code(s): 094074382 (2) ESBL (extended spectrum beta-lactamase) producing bacteria infection Current Visit: Yes Status: Acute Code(s): A49.9 - BACTERIAL INFECTION, UNSPECIFIED; Z16.12 - EXTENDED SPECTRUM BETA LACTAMASE (ESBL) RESISTANCE SNOMED Code(s): 007484904 Plan: 1- local wound cultures will be repeated in both aerobic and anaerobic 2-we will check a CRP and sed rate 3-start the patient on Invanz 500 mg daily doses been adjusted to the kidney function 4-local wound care with the santyl to be changed daily We will follow on clinical condition and cultures to further adjust medication if needed Thank you for this consultation will follow this patient with you Time with Patient: Greater than 30
[2021-08-21] MEDS ORDERED: MIDODRINE 5 MG TAB PO PRN (00:03)
[2021-08-21] MEDS: ERTAPENEM 0.5 GM in SODIUM CHLORIDE 0.9% 50 ML IVPB SCH ×2 (00:31→21:34)
[2021-08-21] MEDS: HYDROcodone/APAP 7.5-325MG 1 EACH TAB PO PRN ×2 (01:08→15:25)
[2021-08-21] MEDS: LEVOTHYROXINE 75 MCG TAB PO SCH (05:52)
[2021-08-21 07:12] LABS: Glucose,Whole Blood 124 mg/dL (75-99)
[2021-08-21] MEDS: CALCIUM ACETATE 667 MG TAB PO SCH ×3 (07:49→16:44)
[2021-08-21] MEDS: PANTOPRAZOLE 40 MG TABLET PO SCH (07:50)
[2021-08-21] MEDS: INSULN ASP PRT/INSULIN ASPART 100 UNIT/ML 10 ML VIAL SQ SCH ×2 (08:17→16:44)
[2021-08-21] MEDS: RIVAROXABAN 15 MG TAB PO SCH (08:18)
[2021-08-21] MEDS: hydrALAZINE HCL 25 MG TAB PO SCH ×3 (08:18→21:34)
[2021-08-21] MEDS: METOPROLOL TARTRATE 25 MG TAB PO SCH ×2 (08:18→21:33)
[2021-08-21] MEDS: FENOFIBRATE 160 MG TAB PO SCH (08:18)
[2021-08-21] MEDS: TAMSULOSIN 0.4 MG CAP.ER.24H PO SCH (08:18)
[2021-08-21] MEDS: COLLAGENASE 250 UNIT/GM OINTMENT 30 GM TUBE TOPICAL SCH (08:20)
[2021-08-21] MEDS: SODIUM HYPOCHLORITE 0.25% 480 ML BOT MISCELLANE SCH (08:20)
[2021-08-21] MEDS ORDERED: NON FORMULARY DRUG (Folic Acid [Folic Acid] 0.4 MG Tablet) PO SCH (09:00)
[2021-08-21] MEDS ORDERED: BUMETANIDE 1 MG TAB PO SCH ×2 (09:00→21:00)
[2021-08-21] MEDS ORDERED: carvediloL 3.125 MG TAB PO SCH (09:00)
[2021-08-21 11:27] LABS: Glucose,Whole Blood 173 mg/dL (75-99)
[2021-08-21] MEDS: INSULIN ASPART (NovoLOG) 100 UNIT/ML VIAL SQ SCH ×3 (12:01→21:35)
[2021-08-21 12:44] VITALS: BMI 29.1
--- NOTE | 2021-08-21 14:53 | P.HPIM ---
History of Present Illness H&P Date: 08/21/21 HISTORY OF PRESENT ILLNESS This is a 76-year-old male patient of Dr. Vidales with past medical history of end-stage renal disease on hemodialysis Thursday through left arm fistula, diabetes mellitus type 2, hypertension, hyperlipidemia, hypothyroidism, anemia of chronic disease, remote history of tobacco use. Patient is a long-term patient at the [facility] with chronic wounds to the right foot, last visit was on 08/15 and patient was referred to vascular surgeon for moderate bilateral some oral popliteal disease. Patient has home care nurse in place. He states that his home care nurse advised him to come in the hospital for further evaluation. Patient was found to be afebrile, heart rate 61, blood pressure 139/69, pulse ox 100% on room air. WBC 10.4, hemoglobin 10.3, platelet count 250. Sodium 135, potassium 4.5, chloride 94, CO2 28, BUN 29 creatinine 7.49. Blood glucose running between 124 and 173. Total bilirubin 1.8. Magnesium 1.9. Liver function tests normal. Coronavirus not detected. Wound culture and blood culture have been obtained. Ultrasound of the right lower extremity negative for DVT. Right foot x-ray should revealed soft tissue wound first digit. Suspect early osteomyelitis distal phalanx first digit right foot. Patient has been seen by Dr. Lynn with recommendations for local wound care, cultures, Invanz dosed by pharmacy. Patient has been admitted to the [facility] floor. REVIEW OF SYSTEMS Constitutional: No fever, no chills, no night sweats. No weight change. No weakness, fatigue or lethargy. No daytime sleepiness. EENT: No headache. No blurred vision or double vision, no loss of vision. No loss of Hearing, no ringing in the ears, no dizziness. No nasal drainage or congestion. No epistaxis. No sore throat. Lungs: No shortness of breath, cough, no sputum production. No wheezing. Cardiovascular: No chest pain, no lower extremity edema. No palpitations. No paroxysmal nocturnal dyspnea. No orthopnea. No lightheadedness or dizziness. No syncopal episodes. Abdominal: No abdominal pain. No nausea, vomiting. No diarrhea. No constipation. No bloody or tarry stools.. No loss of appetite. Genitourinary: No dysuria, increased frequency, urgency. No urinary retention. Musculoskeletal: No myalgias. No muscle weakness, no gait dysfunction, no frequ ent falls. No back pain. No neck pain. Integumentary: Reported wounds, no lesions. No rash or pruritus. No unusual bruising. No change in hair or nails. Neurologic: No aphasia. No facial droop. No change in mentation. No head injury. No headache. No paralysis. No paresthesia. Psychiatric: No depression. No anxiety. No mood swings. Endocrine: No abnormal blood sugars. No weight change. No excessive sweating or thirst. No cold intolerance. SOCIAL HISTORY Patient quit smoking 42 years ago. He denies any alcohol, marijuana or illicit drug use. He is single. FAMILY HISTORY Father at age 45 from myocardial infarction. Mother at age 67 from diabetes complications with history of coronary artery disease. Patient has 3 brothers and one sister relatively healthy has chronic back problems. Patient has 5 children with no major medical problems. PHYSICAL EXAMINATION Gen: This is a 76-year-old black male resting in bed and appears to be in no acute distress. HEENT: Head is atraumatic, normocephalic. Pupils equal, round. Sclerae is anicteric. NECK: Supple. No JVD. No lymphadenopathy. No thyromegaly. LUNGS: Clear to auscultation. No wheezes or rhonchi. No intercostal retractions. HEART: Regular rate and rhythm. Systolic murmur. ABDOMEN: Soft. Bowel sounds are present. No masses. No tenderness. EXTREMITIES: No pedal edema. No calf tenderness. Necrotic-appearing tissue on the right foot at the lateral/plantar fifth metatarsal and right great toe. Fistula left upper arm. NEUROLOGICAL: Patient is awake, alert and oriented x3. Cranial nerves 2 through 12 are grossly intact. ASSESSMENT AND PLAN 1. Acute on chronic diabetic and peripheral vascular disease ulcers to the right foot with worsening condition. Patient has been started on ertapenem dose d by pharmacy, consult with Dr. Shane bustamante. Wound culture and blood cultures in progress. 2. End-stage renal disease on hemodialysis Thursday schedule. Consult with Dr. Oropeza, continue Lasix 80 mg twice daily. 3. Diabetes mellitus type 2 insulin requiring. Continue NovoLog Mix 70/30 4 units twice daily, NovoLog scale before meals and at bedtime, obtain hemoglobin A1c. 4. Hyperlipidemia. Continue atorvastatin 40 mg at bedtime 5. Chronic atrial fibrillation. Continue Lopressor 25 mg twice daily, Xarelto 15 mg daily. Hold Coreg. 6. Benign prostatic hypertrophy. Continue Flomax 0.4 mg daily. 7. Hypothyroidism. Continue levothyroxine 150 g daily. 8. Hypertension. Continue hydralazine 25 mg 3 times daily. Continue midodrine 5 mg twice daily on dialysis days. 8. Glaucoma. Continue eye drops. 9. DVT prophylaxis. Xarelto. 10. GI prophylaxis. Protonix. Patient will be admitted to the hospital for a minimum of 2 night stay. DISCHARGE PLAN TBD. Subacute rehab at [facility] or [facility] Impression and plan of care have been directed as dictated by the signing physician. Carmina Collins nurse practitioner acting as scribe for signing physician. Past Medical History Past Medical History: Dialysis, Hyperlipidemia, Hypertension, Renal Disease, Thyroid Disorder Additional Past Medical History / Comment(s): CAPD every 6 hours 2.5 %, a week ago couldn't urinate and had a calhoun, anemia ovver a week ago had to have blood transfusion, legs sometimes go out and buckle per pt History of Any Multi-Drug Resistant Organisms: ESBL Date of last positivie culture/infection: 05/23/21 MDRO Source:: Right First Toe Past Surgical History: No Surgical Hx Reported Additional Past Surgical History / Comment(s): placement of peritoneal dialysis catheter and repair of umbilical hernia 07/2017, colonoscopy with polypectomy in the distant past. Past Anesthesia/Blood Transfusion Reactions: No Reported Reaction Past Psychological History: No Psychological Hx Reported Smoking Status: Never smoker Past Alcohol Use History: None Reported Past Drug Use History: None Reported - Past Family History Father Family Medical History: Myocardial Infarction ([place]) ( at 45) Additional Family Medical History / Comment(s): patient has 3 brothers and one sister is relatively healthy has chronic back problems patient has 5 children that are healthy with no kidney diabetes or coronary artery disease. Mother Family Medical History: Coronary Artery Disease (CAD), Diabetes Mellitus ( at 67) Medications and Allergies Home Medications Medication Instructions Recorded Confirmed Type Folic Acid 0.4 mg PO DAILY 11/04/19 08/20/21 History Calcium Acetate [PhosLo] 667 mg PO AC-TID 08/04/20 08/20/21 History Atorvastatin [Lipitor] 40 mg PO HS tab 08/07/20 08/20/21 Rx Furosemide [Lasix] 80 mg PO BID@0900,1600 tab 08/07/20 08/20/21 Rx Insuln Asp Prt/Insulin Aspart 4 unit SQ AC-BID #1 vial 08/07/20 08/20/21 Rx [NovoLOG MIX 70-30 VIAL] Levothyroxine Sodium [Synthroid] 150 mcg PO DAILY@0630 tab 08/07/20 08/20/21 Rx Metoprolol Tartrate [Lopressor] 25 mg PO BID tab 08/07/20 08/20/21 Rx Pantoprazole [Protonix] 40 mg PO DAILY@0730 tablet.dr 08/07/20 08/20/21 Rx Tamsulosin [Flomax] 0.4 mg PO DAILY #30 cap.er.24h 08/07/20 08/20/21 Rx hydrALAZINE HCL [Apresoline] 25 mg PO TID tab 08/07/20 08/20/21 Rx Bumetanide [Bumex] 1 mg PO WESA@2100 08/20/21 08/20/21 History Bumetanide [Bumex] 2 mg PO WESA@0900 08/20/21 08/20/21 History Collagenase [Santyl] 1 applic TOPICAL DAILY 08/20/21 08/20/21 History Dakins 1 applic TOPICAL DAILY 08/20/21 08/20/21 History Fenofibrate Nanocrystallized 145 mg PO DAILY 08/20/21 08/20/21 History [Fenofibrate] Latanoprost [Xalatan 0.005%] 1 drop BOTH EYES HS 08/20/21 08/20/21 History Midodrine [ProAmatine] 5 mg PO BID PRN 08/20/21 08/20/21 History Rivaroxaban [Xarelto] 15 mg PO DAILY 08/20/21 08/20/21 History carvediloL [Coreg] 3.125 mg PO BID 08/20/21 08/20/21 History Allergies Allergy/AdvReac Type Severity Reaction Status Date / Time No Known Allergies Allergy Verified 08/20/21 13:53 Physical Exam Vitals: Vital Signs Temp Pulse Pulse Resp BP BP Pulse Ox 08/21/21 10:10 68 08/21/21 08:00 97.5 F L 68 18 144/64 94 L 08/21/21 01:31 97.7 F 70 17 139/67 94 L 08/20/21 22:11 97.5 F L 68 16 140/69 99 08/20/21 19:52 97.4 F L 60 18 137/67 97 08/20/21 12:46 97.3 F L 61 17 139/69 100 Intake and Output 08/20/21 08/21/21 08/21/21 22:59 06:59 14:59 Intake Total 50 Balance 50 Intake: Intake, IV Titration 50 Amount Ertapenem 0.5 gm In 50 Sodium Chloride 0.9% 50 ml @ 100 mls/hr IVPB Q24H [facility] Rx#:[id number] Other: Weight 102.965 kg Results CBC & Chem 7: 08/20/21 14:41 08/20/21 14:35 Labs: Abnormal Lab Results - Last 24 Hours (Table) 08/20/21 08/20/21 08/21/21 Range/Units 14:35 14:41 07:05 RBC 3.23 L (4.30-5.90) m/uL Hgb 10.3 L (13.0-17.5) gm/dL Hct 32.9 L (39.0-53.0) % MCV 101.9 H (80.0-100.0) fL Neutrophils # 8.3 H (1.3-7.7) k/uL Lymphocytes # 0.9 L (1.0-4.8) k/uL Sodium 135 L (137-145) mmol/L Chloride 94 L (98-107) mmol/L BUN 29 H (9-20) mg/dL Creatinine 7.49 H* (0.66-1.25) mg/dL Glucose 176 H (74-99) mg/dL POC Glucose (mg/dL) 124 H (75-99) mg/dL Total Bilirubin 1.8 H (0.2-1.3) mg/dL AST 15 L (17-59) U/L Microbiology - Last 24 Hours (Table) 08/20/21 Unknown Gram Stain - Preliminary Toe - Right First Wound Culture - Preliminary 08/20/21 Unknown Anaerobic Culture - Preliminary Toe - Right First Thrombosis Risk Factor Assmnt - Choose All That Apply Any of the Below Risk Factors Present?: No Each Risk Factor Represents 3 Points: Age 75 years or older Other congenital or acquired thrombophilia - If yes, enter type in comment: No Thrombosis Risk Factor Assessment Total Risk Factor Score: 3 Thrombosis Risk Factor Assessment Level: Moderate Risk
[2021-08-21] MEDS: FUROSEMIDE 80 MG TAB PO SCH (15:26)
--- NOTE | 2021-08-21 16:15 | CONS ---
CONSULTATION REASON FOR CONSULT: End-stage renal disease. HISTORY OF PRESENT ILLNESS: Patient is a 76-year-old male with end-stage renal disease, on hemodialysis on a Thursday, Thursday, Thursday schedule at the [facility]. The patient has been admitted with complaints of wound on his right foot and heel area, which has progressively increased over the past few weeks. He had been on antibiotics previously. The patient denies any fevers or chills, nausea, vomiting or abdominal pain. He has a left arm AV fistula. PAST MEDICAL HISTORY: End-stage renal disease, hypertension, hyperlipidemia, hypothyroidism, type 2 diabetes. PAST SURGICAL HISTORY: PD catheter placement, colonoscopy, polypectomy and umbilical hernia repair. SOCIAL HISTORY: Negative for smoking, drug abuse or alcohol abuse. MEDICATIONS: Medications prior to admission included folic acid, PhosLo, Lipitor, Lasix, insulin, Synthroid, Lopressor, Protonix, hydralazine, Bumex, Santyl, Xarelto, midodrine, Coreg. ALLERGIES: None. REVIEW OF SYSTEMS: As per HPI. Other systems negative. EXAMINATION: The patient is comfortable, awake, not in any acute distress. Alert, oriented x3. Blood pressure is 144/64, heart rate 68 per minute. He is afebrile. Examination of the heart S1, S2. Examination of the lungs, bilateral breath sounds are heard. Abdomen is soft, nontender. Examination of lower extremities shows edema 1+ right lower extremity. No edema left lower extremity. Right foot ulcer is noted with foul smelling discharge. [employer] exam grossly intact. LAB: Show sodium 135, potassium 4.5, BUN 29, creatinine 7.49, hemoglobin 10.3 g/dL. ASSESSMENT: 1. End-stage renal disease, on hemodialysis on a Thursday, Thursday, Thursday schedule. 2. Right foot ulcer with osteomyelitis. Wound culture previously grew E coli and enterococcus faecalis on 05/23/2021. Patient is being followed by Infectious Disease, maintained on antibiotics. 3. Chronic kidney disease, mineral bone disorder. 4. Type 2 diabetes. 5. Hypertension. PLAN: Hemodialysis today. Continue phosphate binders in the form of PhosLo. Continue antibiotics as per ID. Thank you for this consultation. We will continue to follow the patient with you during his hospitalization. MMODL / IJN: [id number] /
[2021-08-21 16:27] LABS: Glucose,Whole Blood 77 mg/dL (75-99)
[2021-08-21 20:32] LABS: Glucose,Whole Blood 117 mg/dL (75-99)
[2021-08-21] MEDS: ATORVASTATIN 40 MG TAB PO SCH (21:34)
[2021-08-21] MEDS: LATANOPROST 0.005% OPHTH DROPS 2.5 ML BTL BOTH EYES SCH (21:37)
--- NOTE | 2021-08-21 22:39 | PN ---
PROGRESS NOTE DATE OF SERVICE: 08/21/2021 REASON FOR FOLLOWUP: Right big toe foot wound and concern for underlying osteomyelitis. INTERVAL HISTORY: Patient is afebrile. The patient is more awake and alert. He is breathing comfortably. Denies having any chest pain, shortness of breath or cough. No abdominal pain or worsening pain to the right foot. PHYSICAL EXAMINATION: Blood pressure 126/83, pulse of 52, temperature 97.7. He is 93% on room air. GENERAL DESCRIPTION: General description is an elderly male lying in bed in no distress. RESPIRATORY SYSTEM: Unlabored breathing. Clear to auscultation anteriorly. HEART: S1, S2. Regular rate and rhythm. ABDOMEN: Soft. No tenderness. Right foot is currently dressed. No obvious drainage on the dressing. DIAGNOSTIC IMPRESSION AND PLAN: Patient with a right big toe chronic nonhealing wound with concern for underlying osteomyelitis. Patient is covered with Invanz on the basis of recent culture. That will be continued while waiting for repeat culture to finalize and monitor clinical course closely. MMODL / IJN: [id number] /
[2021-08-22] MEDS: LEVOTHYROXINE 75 MCG TAB PO SCH (06:00)
[2021-08-22 06:45] LABS: Glucose,Whole Blood 124 mg/dL (75-99)
[2021-08-22] MEDS: INSULIN ASPART (NovoLOG) 100 UNIT/ML VIAL SQ SCH ×4 (07:05→22:56)
[2021-08-22] MEDS: PANTOPRAZOLE 40 MG TABLET PO SCH (07:24)
[2021-08-22] MEDS: INSULN ASP PRT/INSULIN ASPART 100 UNIT/ML 10 ML VIAL SQ SCH ×2 (07:25→17:26)
[2021-08-22] MEDS: CALCIUM ACETATE 667 MG TAB PO SCH ×3 (07:25→17:26)
[2021-08-22] MEDS: FENOFIBRATE 160 MG TAB PO SCH (07:25)
[2021-08-22] MEDS: TAMSULOSIN 0.4 MG CAP.ER.24H PO SCH (07:25)
[2021-08-22] MEDS: RIVAROXABAN 15 MG TAB PO SCH (07:27)
[2021-08-22] MEDS: hydrALAZINE HCL 25 MG TAB PO SCH ×3 (07:32→22:55)
[2021-08-22] MEDS: METOPROLOL TARTRATE 25 MG TAB PO SCH ×2 (07:32→22:57)
[2021-08-22] MEDS: FUROSEMIDE 80 MG TAB PO SCH ×2 (07:32→15:55)
[2021-08-22] MEDS: HYDROcodone/APAP 7.5-325MG 1 EACH TAB PO PRN ×2 (10:07→18:56)
[2021-08-22] MEDS: COLLAGENASE 250 UNIT/GM OINTMENT 30 GM TUBE TOPICAL SCH (10:43)
[2021-08-22] MEDS: SODIUM HYPOCHLORITE 0.25% 480 ML BOT MISCELLANE SCH (10:44)
[2021-08-22 11:13] LABS: Glucose,Whole Blood 135 mg/dL (75-99)
--- NOTE | 2021-08-22 11:34 | P.CONS ---
History of Present Illness - Reason for Consult Consult date: 08/22/21 wound care - History of Present Illness This is a 76-year-old patient known to the wound care center who sees Dr. Christian with nonhealing ulcerations to the right plantar great toe and right lateral plantar foot. Patient was seen last week the ulceration at that time had declined with visible bone exposure to the right lateral foot. Had a lengthy discussion with the patient about dressing changes and offloading. Rosalia valverde is noncompliant with offloading. He was also referred to Dr. Tipton due to his ABIs showing moderate bilateral femoral-popliteal disease. Patient did not follow-up with Dr. Easley at this time. He was currently on exam previously due to osteomyelitis. Which she was receiving during his dialysis. Patient is utilizing Santyl for his dressings. And cleansing with Dakin's. Wound #1 status is Open. Original cause of wound was Not Known. The wound is currently classified as a Grade 2 wound with etiology of Diabetic Wound/Ulcer of the Lower Extremity and is located on the Right,Plantar Toe Great. The wound measures 1.3cm length x 1.2cm width x 0.5cm depth; 1.225cm^2 area and 0.613cm^3 volume. There is bone and Fat Layer (Subcutaneous Tissue) exposed. There is no tunneling or undermining noted. There is a medium amount of serous drainage noted. The wound margin is indistinct and nonvisible. There is small (1-33%) pink granulation within the wound bed. There is a large (67-100%) amount of necrotic tissue within the wound bed including Adherent Slough. The periwound skin appearance exhibited: Scarring. The periwound skin appearance did not exhibit: Callus, Crepitus, Excoriation, Induration, Rash, Dry/Scaly, Maceration, Atrophie [place], Cyanosis, Ecchymosis, Hemosiderin Staining, Mottled, Pallor, Rubor, Erythema. General Notes: callus to plantar lateral rt. ft Wound #2 status is Open. Original cause of wound was Not Known. The wound is currently classified as a Grade 4 wound with etiology of Diabetic Wound/Ulcer of the Lower Extremity and is located on the Right,Lateral,Plantar Foot. The wound measures 4.1cm length x 3.5cm width x 1.2cm depth; 11.27cm^2 area and 13.525cm^3 volume. There is bone and Fat Layer (Subcutaneous Tissue) exposed. There is a medium amount of serosanguineous drainage noted. The wound margin is indistinct and nonvisible. There is small (1-33%) pink granulation within the wound bed. There is a large (67-100%) amount of necrotic tissue within the wound bed including Eschar and Adherent Slough. The periwound skin appearance did not exhibit: Callus, Crepitus, Excoriation, Induration, Rash, Scarring, Dry/Scaly, Maceration, Atrophie Vvi, Cyanosis, Ecchymosis, Hemosiderin Staining, Mottled, Pallor, Rubor, Erythema. The periwound has tenderness on palpation. Review Of Systems: Constitutional: No fever, no chills, no night sweats. No weight change. No weakness, fatigue or lethargy. No daytime sleepiness. Integumentary:reports wounds, no lesions. No rash or pruritus. No unusual bruising. No change in hair or nails. Physical exam: General Appearance: Alert, cooperative, no distress, appears stated age. Skin: See HPI all other Skin color, texture, tugor normal, no rashes or lesions. Neurologic: Alert oriented x3 Assessment: 1. 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 Nonpressure chronic ulcer of other part of right foot with fatty layer exposure 3. Type 2 diabetes with foot ulcer 4. Osteomyelitis 5. End-stage renal failure dependent on renal dialysis Plan: 1. Continue with Santyl to the site. Continue with IV antibiotics per infectious disease. Consult for vascular surgery to assess arterial flow and possible surgical debridement. Patient's next wound appointment August 29 at 10:[address] Christian. Thank you for the consultation any questions please contact the wound care center DNP note has been reviewed and discussed with Dr. Gil and the impression and plan of care has been directed as dictated. Past Medical History Past Medical History: Dialysis, Hyperlipidemia, Hypertension, Renal Disease, Thyroid Disorder Additional Past Medical History / Comment(s): CAPD every 6 hours 2.5 %, a week ago couldn't urinate and had a calhoun, anemia ovver a week ago had to have blood transfusion, legs sometimes go out and buckle per pt History of Any Multi-Drug Resistant Organisms: ESBL Year Discovered:: 05/23/21 MDRO Source:: Right First Toe Past Surgical History: No Surgical Hx Reported Additional Past Surgical History / Comment(s): placement of peritoneal dialysis catheter and repair of umbilical hernia 07/2017, colonoscopy with polypectomy in the distant past. Past Anesthesia/Blood Transfusion Reactions: No Reported Reaction Past Psychological History: No Psychological Hx Reported Smoking Status: Never smoker Past Alcohol Use History: None Reported Past Drug Use History: None Reported - Past Family History Father Family Medical History: Myocardial Infarction ([place]) ( at 45) Additional Family Medical History / Comment(s): patient has 3 brothers and one sister is relatively healthy has chronic back problems patient has 5 children that are healthy with no kidney diabetes or coronary artery disease. Mother Family Medical History: Coronary Artery Disease (CAD), Diabetes Mellitus ( at 67) Medications and Allergies Home Medications Medication Instructions Recorded Confirmed Type Folic Acid 0.4 mg PO DAILY 11/04/19 08/20/21 History Calcium Acetate [PhosLo] 667 mg PO AC-TID 08/04/20 08/20/21 History Atorvastatin [Lipitor] 40 mg PO HS tab 08/07/20 08/20/21 Rx Furosemide [Lasix] 80 mg PO BID@0900,1600 tab 08/07/20 08/20/21 Rx Insuln Asp Prt/Insulin Aspart 4 unit SQ AC-BID #1 vial 08/07/20 08/20/21 Rx [NovoLOG MIX 70-30 VIAL] Levothyroxine Sodium [Synthroid] 150 mcg PO DAILY@0630 tab 08/07/20 08/20/21 Rx Metoprolol Tartrate [Lopressor] 25 mg PO BID tab 08/07/20 08/20/21 Rx Pantoprazole [Protonix] 40 mg PO DAILY@0730 tablet.dr 08/07/20 08/20/21 Rx Tamsulosin [Flomax] 0.4 mg PO DAILY #30 cap.er.24h 08/07/20 08/20/21 Rx hydrALAZINE HCL [Apresoline] 25 mg PO TID tab 08/07/20 08/20/21 Rx Bumetanide [Bumex] 1 mg PO WESA@2100 08/20/21 08/20/21 History Bumetanide [Bumex] 2 mg PO WESA@0900 08/20/21 08/20/21 History Collagenase [Santyl] 1 applic TOPICAL DAILY 08/20/21 08/20/21 History Dakins 1 applic TOPICAL DAILY 08/20/21 08/20/21 History Fenofibrate Nanocrystallized 145 mg PO DAILY 08/20/21 08/20/21 History [Fenofibrate] Latanoprost [Xalatan 0.005%] 1 drop BOTH EYES HS 08/20/21 08/20/21 History Midodrine [ProAmatine] 5 mg PO BID PRN 08/20/21 08/20/21 History Rivaroxaban [Xarelto] 15 mg PO DAILY 08/20/21 08/20/21 History carvediloL [Coreg] 3.125 mg PO BID 08/20/21 08/20/21 History Allergies Allergy/AdvReac Type Severity Reaction Status Date / Time No Known Allergies Allergy Verified 08/20/21 13:53 Physical Exam Vitals: Vital Signs Temp Pulse Resp BP Pulse Ox 08/22/21 07:14 97.8 F 72 18 155/76 97 08/22/21 01:22 98.0 F 75 15 133/68 94 L 08/21/21 20:24 97.7 F 62 18 126/83 08/21/21 13:35 97.6 F 55 L 18 144/65 93 L Intake and Output 08/21/21 08/22/21 08/22/21 22:59 06:59 14:59 Output Total 1999 Output: Hemodialysis 1999 Other: # Voids 0 # Bowel Movements 1 Results CBC & Chem 7: 08/20/21 14:41 08/20/21 14:35 Labs: Abnormal Lab Results - Last 24 Hours (Table) 08/21/21 08/22/21 08/22/21 Range/Units 20:31 06:44 11:11 POC Glucose (mg/dL) 117 H 124 H 135 H (75-99) mg/dL Microbiology - Last 24 Hours (Table) 08/20/21 14:41 Blood Culture - Preliminary Blood No Growth after 24 hours 08/20/21 14:41 Blood Culture - Preliminary Blood No Growth after 24 hours 08/20/21 Unknown Gram Stain - Preliminary Toe - Right First Wound Culture - Preliminary Assessment and Plan (1) Non-pressure chronic ulcer of other part of right foot with necrosis of bone Current Visit: Yes Status: Acute Code(s): L97.514 - NON-PRS CHRONIC ULCER OTH PRT RIGHT FOOT W NECROSIS OF BONE SNOMED Code(s): 615777773 (2) Non-pressure chronic ulcer of other part of right foot with fat layer exposed Current Visit: Yes Status: Acute Code(s): L97.512 - NON-PRS CHRONIC ULCER OTH PRT RIGHT FOOT W FAT LAYER EXPOSED SNOMED Code(s): 412231865 (3) Type 2 diabetes mellitus with foot ulcer Current Visit: Yes Status: Acute Code(s): E11.621 - TYPE 2 DIABETES MELLITUS WITH FOOT ULCER; L97.509 - NON-PRESSURE CHRONIC ULCER OTH PRT UNSP FOOT W UNSP SEVERITY SNOMED Code(s): 305269922
[2021-08-22 11:59] LABS: African American GFR (CKD) 8 (>60 ml/min/1.73 sqM); Anion Gap 11 mmol/L; Blood Urea Nitrogen 28 mg/dL (9-20); Carbon Dioxide 28 mmol/L (22-30); Chloride 95 mmol/L (98-107); Glucose 120 mg/dL (74-99); Non-African American GFR(CKD) 7 (>60 ml/min/1.73 sqM); Potassium 4.6 mmol/L (3.5-5.1); Sodium 134 mmol/L (137-145)
--- NOTE | 2021-08-22 12:31 | PN ---
PROGRESS NOTE Patient is seen for followup for end-stage renal disease. He was admitted to the hospital with right foot ulcer and infection, currently maintained on antibiotics. Wound culture is pending. He is maintained on a Thursday, Thursday, Thursday schedule for dialysis. He has a left arm AV fistula. PHYSICAL EXAMINATION: On examination today, blood pressure 155/76, heart rate 72 per minute, he is afebrile. Examination of the heart S1, S2. Examination of the lungs, bilateral breath sounds are heard. Abdomen is soft, nontender. Examination of lower extremities shows 1+ edema right leg. No edema left lower extremity left. Right foot is currently wrapped. LABS: No labs available today. On August 20, hemoglobin 10.3, potassium was 4.5, creatinine 7.49. ASSESSMENT: 1. End-stage renal disease, on hemodialysis on a Thursday, Thursday, Thursday schedule via left arm AV fistula. 2. Right foot ulcer, rule out osteomyelitis, maintained on antibiotics, being followed by ID. 3. Chronic kidney disease mineral bone disorder, maintained on PhosLo. 4. Type 2 diabetes. 5. Hypertension with chronic kidney disease. PLAN: Hemodialysis in a.m. MMODL / IJN: [id number] /
--- NOTE | 2021-08-22 12:43 | P.PN ---
Subjective Progress Note Date: 08/22/21 HISTORY OF PRESENT ILLNESS This is a 76-year-old male patient of Dr. Vidales with past medical history of end-stage renal disease on hemodialysis Thursday through left arm fistula, diabetes mellitus type 2, hypertension, hyperlipidemia, hypothyroidism, anemia of chronic disease, remote history of tobacco use. Patient is a long-term patient at the wound healing [facility] with chronic wounds to the right foot, last visit was on 08/15 and patient was referred to vascular surgeon for moderate bilateral some oral popliteal disease. Patient has home care nurse in place. He states that his home care nurse advised him to come in the hospital for further evaluation. Patient was found to be afebrile, heart rate 61, blood pressure 139/69, pulse ox 100% on room air. WBC 10.4, hemoglobin 10.3, platelet count 250. Sodium 135, potassium 4.5, chloride 94, CO2 28, BUN 29 creatinine 7.49. Blood glucose running between 124 and 173. Total bilirubin 1.8. Magnesium 1.9. Liver function tests normal. Coronavirus not detected. Wound culture and blood culture have been obtained. Ultrasound of the right lower extremity negative for DVT. Right foot x-ray should revealed soft tissue wound first digit. Suspect early osteomyelitis distal phalanx first digit right foot. Patient has been seen by Dr. Lynn with recommendations for local wound care, cultures, Invanz dosed by pharmacy. Patient has been admitted to the [facility] floor. 08/22: Patient has been seen by Dr. Lynn and he recommends surgical debridement, consult added for Dr. Aleman as patient was recommended to follow-up with Dr. Aleman from the wound center but failed to do so. Consult has been admitted for wound care team. Patient underwent hemodialysis yesterday, none today. Patient has been afebrile, heart rate 72, blood pressure 155/76, pulse ox 97% on room air. Repeat blood work reveals sodium 134, potassium 4.6, chloride 95, CO2 20, BUN 28 creatinine 6.68. Blood sugars are running between 117 and 135. Repeat blood work will be ordered for tomorrow. social work is following for d ischarge planning which will be [facility] once patient is stable. REVIEW OF SYSTEMS Constitutional: No fever, no chills, no night sweats. No weight change. No w eakness, fatigue or lethargy. No daytime sleepiness. EENT: No headache. No blurred vision or double vision, no loss of vision. No loss of Hearing, no ringing in the ears, no dizziness. No nasal drainage or congestion. No epistaxis. No sore throat. Lungs: No shortness of breath, cough, no sputum production. No wheezing. Cardiovascular: No chest pain, no lower extremity edema. No palpitations. No paroxysmal nocturnal dyspnea. No orthopnea. No lightheadedness or dizziness. No syncopal episodes. Abdominal: No abdominal pain. No nausea, vomiting. No diarrhea. No constipation. No bloody or tarry stools.. No loss of appetite. Genitourinary: No dysuria, increased frequency, urgency. No urinary retention. Musculoskeletal: No myalgias. No muscle weakness, no gait dysfunction, no f requent falls. No back pain. No neck pain. Integumentary: Reported wounds, no lesions. No rash or pruritus. No unusual bruising. No change in hair or nails. Neurologic: No aphasia. No facial droop. No change in mentation. No head injury. No headache. No paralysis. No paresthesia. Psychiatric: No depression. No anxiety. No mood swings. Endocrine: No abnormal blood sugars. No weight change. No excessive sweating or thirst. No cold intolerance. PHYSICAL EXAMINATION Gen: This is a 76-year-old black male resting in bed and appears to be in no acute distress. HEENT: Head is atraumatic, normocephalic. Pupils equal, round. Sclerae is anicteric. NECK: Supple. No JVD. No lymphadenopathy. No thyromegaly. LUNGS: Clear to auscultation. No wheezes or rhonchi. No intercostal retractions. HEART: Irregular rate and rhythm. Systolic murmur. ABDOMEN: Soft. Bowel sounds are present. No masses. No tenderness. EXTREMITIES: No pedal edema. No calf tenderness. Necrotic-appearing tissue on the right foot at the lateral/plantar fifth metatarsal and right great toe. Fistula left upper arm. NEUROLOGICAL: Patient is awake, alert and oriented x3. Cranial nerves 2 through 12 are grossly intact. ASSESSMENT AND PLAN 1. Acute on chronic diabetic and peripheral vascular disease ulcers to the right foot with worsening condition. Patient has been started on ertapenem dosed by pharmacy, consult with Dr. Lynn appreciated. Wound culture and blood cultures in progress. Consult with vascular surgery for debridement 2. End-stage renal disease on hemodialysis Thursday schedule. Consult with Dr. Oropeza, continue Lasix 80 mg twice daily. 3. Diabetes mellitus type 2 insulin requiring. Continue NovoLog Mix 70/30 4 units twice daily, NovoLog scale before meals and at bedtime, obtain hemoglobin A1c. 4. Hyperlipidemia. Continue atorvastatin 40 mg at bedtime 5. Chronic atrial fibrillation. Continue Lopressor 25 mg twice daily, Xarelto 15 mg daily. Hold Coreg. 6. Benign prostatic hypertrophy with urinary retention. Patient self cast twice daily which will be continued here. Continue Flomax 0.4 mg daily. 7. Hypothyroidism. Continue levothyroxine 150 g daily. 8. Hypertension. Continue hydralazine 25 mg 3 times daily. Continue midodrine 5 mg twice daily on dialysis days. 8. Glaucoma. Continue eye drops. 9. DVT prophylaxis. Xarelto. 10. GI prophylaxis. Protonix. DISCHARGE PLAN Subacute rehab at [facility] Impression and plan of care have been directed as dictated by the signing physician. Carmina Collins nurse practitioner acting as scribe for signing physician. Objective - Vital Signs Vital signs: Vital Signs Temp 97.8 F 08/22/21 07:14 Pulse 72 08/22/21 07:14 Resp 18 08/22/21 07:14 BP 155/76 08/22/21 07:14 Pulse Ox 97 08/22/21 07:14 Intake & Output 08/21/21 08/22/21 08/22/21 18:59 06:59 18:59 Output Total 1999 Balance -1999 Weight 102.965 kg Output: Hemodialysis 1999 Other: # Voids 0 # Bowel Movements 1 - Labs CBC & Chem 7: 08/20/21 14:41 08/22/21 09:54 Labs: Abnormal Lab Results - Last 24 Hours (Table) 08/21/21 08/21/21 08/22/21 Range/Units 11:23 20:31 06:44 POC Glucose (mg/dL) 173 H 117 H 124 H (75-99) mg/dL Microbiology - Last 24 Hours (Table) 08/20/21 14:41 Blood Culture - Preliminary Blood No Growth after 24 hours 08/20/21 14:41 Blood Culture - Preliminary Blood No Growth after 24 hours 08/20/21 Unknown Gram Stain - Preliminary Toe - Right First Wound Culture - Preliminary
--- NOTE | 2021-08-22 13:12 | P.GSCN ---
<Yue Peres - Last Filed: 08/22/21 12:57> History of Present Illness Consult date: 08/22/21 Reason for Consult: Debridement of right foot wound Requesting physician: Carmina Collins History of present illness: This is a 76-year-old -[place] male who presented to the emergency department 2 days ago as directed by his home care nurse for further evaluation of his right foot wound. The patient has a past medical history of diabetes mellitus, end-stage renal disease on hemodialysis, hyperlipidemia, hypertension, and thyroid disorder. Patient states wound began approximately 5 weeks ago and he started seeing Dr. Christian at the wound care clinic about 3 weeks ago. He has been on oral antibiotics in the past, however wound has not been healing. Patient denies any fever or chills. Does have pain down the right lower ext remity. Apparently the patient had a lower extremity arterial Doppler on 05/30/2021 that showed moderate bilateral fem-pop disease. Cannot exclude iliac component. Vascular assessment should be considered. Patient states he did not know he was supposed to follow-up with vascular surgery and has not had any outpatient appointments. Vascular surgery was consult for debridement of the right foot wounds. Patient has been afebrile, he denies any fevers or chills. Does state he has significant discomfort in the right lower extremity midway up to his calf. He denies any chest pain, shortness of breath, abdominal pain, nausea, or vomiting. After reviewing the wound consult patient was instructed to be offloading on the right lower extremity and has been noncompliant. Review of Systems 14 point review of systems was completed all pertinent positives and negatives as stated in the HPI. Past Medical History Past Medical History: Dialysis, Hyperlipidemia, Hypertension, Renal Disease, Thyroid Disorder Additional Past Medical History / Comment(s): CAPD every 6 hours 2.5 %, a week ago couldn't urinate and had a calhoun, anemia ovver a week ago had to have blood transfusion, legs sometimes go out and buckle per pt History of Any Multi-Drug Resistant Organisms: ESBL Year Discovered:: 05/23/21 MDRO Source:: Right First Toe Past Surgical History: No Surgical Hx Reported Additional Past Surgical History / Comment(s): placement of peritoneal dialysis catheter and repair of umbilical hernia 07/2017, colonoscopy with polypectomy in the distant past. Past Anesthesia/Blood Transfusion Reactions: No Reported Reaction Past Psychological History: No Psychological Hx Reported Smoking Status: Never smoker Past Alcohol Use History: None Reported Past Drug Use History: None Reported - Past Family History Father Family Medical History: Myocardial Infarction (CO) ( at 45) Additional Family Medical History / Comment(s): patient has 3 brothers and one sister is relatively healthy has chronic back problems patient has 5 children that are healthy with no kidney diabetes or coronary artery disease. Mother Family Medical History: Coronary Artery Disease (CAD), Diabetes Mellitus ( at 67) Medications and Allergies Home Medications Medication Instructions Recorded Confirmed Type Folic Acid 0.4 mg PO DAILY 11/04/19 08/20/21 History Calcium Acetate [PhosLo] 667 mg PO AC-TID 08/04/20 08/20/21 History Atorvastatin [Lipitor] 40 mg PO HS tab 08/07/20 08/20/21 Rx Furosemide [Lasix] 80 mg PO BID@0900,1600 tab 08/07/20 08/20/21 Rx Insuln Asp Prt/Insulin Aspart 4 unit SQ AC-BID #1 vial 08/07/20 08/20/21 Rx [NovoLOG MIX 70-30 VIAL] Levothyroxine Sodium [Synthroid] 150 mcg PO DAILY@0630 tab 08/07/20 08/20/21 Rx Metoprolol Tartrate [Lopressor] 25 mg PO BID tab 08/07/20 08/20/21 Rx Pantoprazole [Protonix] 40 mg PO DAILY@0730 tablet.dr 08/07/20 08/20/21 Rx Tamsulosin [Flomax] 0.4 mg PO DAILY #30 cap.er.24h 08/07/20 08/20/21 Rx hydrALAZINE HCL [Apresoline] 25 mg PO TID tab 08/07/20 08/20/21 Rx Bumetanide [Bumex] 1 mg PO WESA@2100 08/20/21 08/20/21 History Bumetanide [Bumex] 2 mg PO WESA@0900 08/20/21 08/20/21 History Collagenase [Santyl] 1 applic TOPICAL DAILY 08/20/21 08/20/21 History Dakins 1 applic TOPICAL DAILY 08/20/21 08/20/21 History Fenofibrate Nanocrystallized 145 mg PO DAILY 08/20/21 08/20/21 History [Fenofibrate] Latanoprost [Xalatan 0.005%] 1 drop BOTH EYES HS 08/20/21 08/20/21 History Midodrine [ProAmatine] 5 mg PO BID PRN 08/20/21 08/20/21 History Rivaroxaban [Xarelto] 15 mg PO DAILY 08/20/21 08/20/21 History carvediloL [Coreg] 3.125 mg PO BID 08/20/21 08/20/21 History Allergies Allergy/AdvReac Type Severity Reaction Status Date / Time No Known Allergies Allergy Verified 08/20/21 13:53 Surgical - Exam Vital Signs Temp Pulse Resp BP Pulse Ox 97.3 F L 61 17 139/69 100 08/20/21 12:46 08/20/21 12:46 08/20/21 12:46 08/20/21 12:46 08/20/21 12:46 General appearance: The patient is alert, oriented, appears in no acute distress. HET: Head is normocephalic and atraumatic. Neck: Supple without lymphadenopathy. Trachea midline. Heart: S1 S2. Regular rate and rhythm. Lungs: Clear to auscultation. Abdomen: Soft, nontender, nondistended. Extremities: Right lower extremity with swelling, patient has diabetic wound to the distal plantar aspect of his great toe, and a wound to the lateral plantar aspect of right foot with visible bone and fat layer. Nonpalpable DP or PT pulses. Neurological: No focal deficits. Patient is alert and oriented 3. Results - Labs 08/20/21 14:41 08/22/21 09:54 Abnormal Lab Results - Last 24 Hours (Table) 08/21/21 08/22/21 08/22/21 Range/Units 20:31 06:44 09:54 Sodium 134 L (137-145) mmol/L Chloride 95 L (98-107) mmol/L BUN 28 H (9-20) mg/dL Creatinine 6.68 H (0.66-1.25) mg/dL Glucose 120 H (74-99) mg/dL POC Glucose (mg/dL) 117 H 124 H (75-99) mg/dL 08/22/21 Range/Units 11:11 Sodium (137-145) mmol/L Chloride (98-107) mmol/L BUN (9-20) mg/dL Creatinine (0.66-1.25) mg/dL Glucose (74-99) mg/dL POC Glucose (mg/dL) 135 H (75-99) mg/dL Microbiology - Last 24 Hours (Table) 08/20/21 14:41 Blood Culture - Preliminary Blood No Growth after 24 hours 08/20/21 14:41 Blood Culture - Preliminary Blood No Growth after 24 hours 08/20/21 Unknown Gram Stain - Preliminary Toe - Right First Wound Culture - Preliminary Diabetes panel 08/22/21 Range/Units 09:54 Sodium 134 L (137-145) mmol/L Potassium 4.6 (3.5-5.1) mmol/L Chloride 95 L (98-107) mmol/L Carbon Dioxide 28 (22-30) mmol/L BUN 28 H (9-20) mg/dL Creatinine 6.68 H (0.66-1.25) mg/dL Glucose 120 H (74-99) mg/dL Calcium 9.0 (8.4-10.2) mg/dL Calcium panel 08/22/21 Range/Units 09:54 Calcium 9.0 (8.4-10.2) mg/dL Pituitary panel 08/22/21 Range/Units 09:54 Sodium 134 L (137-145) mmol/L Potassium 4.6 (3.5-5.1) mmol/L Chloride 95 L (98-107) mmol/L Carbon Dioxide 28 (22-30) mmol/L BUN 28 H (9-20) mg/dL Creatinine 6.68 H (0.66-1.25) mg/dL Glucose 120 H (74-99) mg/dL Calcium 9.0 (8.4-10.2) mg/dL Adrenal panel 08/22/21 Range/Units 09:54 Sodium 134 L (137-145) mmol/L Potassium 4.6 (3.5-5.1) mmol/L Chloride 95 L (98-107) mmol/L Carbon Dioxide 28 (22-30) mmol/L BUN 28 H (9-20) mg/dL Creatinine 6.68 H (0.66-1.25) mg/dL Glucose 120 H (74-99) mg/dL Calcium 9.0 (8.4-10.2) mg/dL Assessment and Plan Assessment: 1. Nonhealing diabetic wounds to right foot and right great toe 2. Peripheral arterial disease, abnormal ABIs 3. Type 2 diabetes 4. Osteomyelitis 5. End-stage renal disease on hemodialysis Plan: 1. Continue with local wound care per wound care management 2. Continue IV antibiotics per infectious disease 3. Further recommendations forthcoming per Vascular surgeon 4. Nothing by mouth after midnight Thank you for this consultation, and allowing us take part in the plan of care of your patient during his hospital stay. The impression and plan of care has been dictated as directed. Dr. Mclaughlin I performed a history and examination of this patient, discussed the same with the dictator. I agree with the dictator's note ,documented as a scribe. Any additional findings or plans will be noted. <Lis Calhoun - Last Filed: 08/22/21 17:27> Surgical - Exam Vital Signs Temp Pulse Resp BP Pulse Ox 97.3 F L 61 17 139/69 100 08/20/21 12:46 08/20/21 12:46 08/20/21 12:46 08/20/21 12:46 08/20/21 12:46 Results - Labs 08/20/21 14:41 08/22/21 09:54 Abnormal Lab Results - Last 24 Hours (Table) 08/20/21 08/21/21 08/22/21 Range/Units 14:41 20:31 06:44 Sodium (137-145) mmol/L Chloride (98-107) mmol/L BUN (9-20) mg/dL Creatinine (0.66-1.25) mg/dL Glucose (74-99) mg/dL POC Glucose (mg/dL) 117 H 124 H (75-99) mg/dL Hemoglobin A1c 6.5 H (4.0-6.0) % 08/22/21 08/22/21 08/22/21 Range/Units 09:54 11:11 16:27 Sodium 134 L (137-145) mmol/L Chloride 95 L (98-107) mmol/L BUN 28 H (9-20) mg/dL Creatinine 6.68 H (0.66-1.25) mg/dL Glucose 120 H (74-99) mg/dL POC Glucose (mg/dL) 135 H 136 H (75-99) mg/dL Hemoglobin A1c (4.0-6.0) % Microbiology - Last 24 Hours (Table) 08/20/21 14:41 Blood Culture - Preliminary Blood No Growth after 48 hours 08/20/21 14:41 Blood Culture - Preliminary Blood No Growth after 48 hours 08/20/21 Unknown Gram Stain - Preliminary Toe - Right First Wound Culture - Preliminary Gram Neg Bacilli Diabetes panel 08/20/21 08/22/21 Range/Units 14:41 09:54 Sodium 134 L (137-145) mmol/L Potassium 4.6 (3.5-5.1) mmol/L Chloride 95 L (98-107) mmol/L Carbon Dioxide 28 (22-30) mmol/L BUN 28 H (9-20) mg/dL Creatinine 6.68 H (0.66-1.25) mg/dL Glucose 120 H (74-99) mg/dL Hemoglobin A1c 6.5 H (4.0-6.0) % Calcium 9.0 (8.4-10.2) mg/dL Calcium panel 08/22/21 Range/Units 09:54 Calcium 9.0 (8.4-10.2) mg/dL Pituitary panel 08/22/21 Range/Units 09:54 Sodium 134 L (137-145) mmol/L Potassium 4.6 (3.5-5.1) mmol/L Chloride 95 L (98-107) mmol/L Carbon Dioxide 28 (22-30) mmol/L BUN 28 H (9-20) mg/dL Creatinine 6.68 H (0.66-1.25) mg/dL Glucose 120 H (74-99) mg/dL Calcium 9.0 (8.4-10.2) mg/dL Adrenal panel 08/22/21 Range/Units 09:54 Sodium 134 L (137-145) mmol/L Potassium 4.6 (3.5-5.1) mmol/L Chloride 95 L (98-107) mmol/L Carbon Dioxide 28 (22-30) mmol/L BUN 28 H (9-20) mg/dL Creatinine 6.68 H (0.66-1.25) mg/dL Glucose 120 H (74-99) mg/dL Calcium 9.0 (8.4-10.2) mg/dL
--- NOTE | 2021-08-22 15:23 | PN ---
PROGRESS NOTE DATE OF SERVICE: 08/22/2021 REASON FOR FOLLOWUP: Right diabetic foot wound infection concerning for osteomyelitis. INTERVAL HISTORY: The patient is afebrile. The patient is currently breathing comfortably. Denies having any chest pain, shortness of breath or cough. No abdominal pain of any worsening pain to the right foot. PHYSICAL EXAMINATION: Blood pressure 145/64, pulse of 50, temperature 97.7. He is 99% on room air. GENERAL DESCRIPTION: General description is an elderly male lying in bed in no distress. RESPIRATORY SYSTEM: Unlabored breathing. Clear to auscultation anteriorly. HEART: S1, S2. Regular rate and rhythm. ABDOMEN: Soft. No tenderness. Right foot lateral border did have a necrotic wound. Right big toe did have a dried up wound. No drainage was noticed. LABS: BUN of 28, creatinine 6.68. Superficial culture has been negative so far. DIAGNOSTIC IMPRESSION AND PLAN: Patient with a right foot lateral border as well as right big toe wound concerning for underlying osteomyelitis. We have advised surgical debridement and deep cultures. Antibiotic on the basis of these cultures. Patient is currently covered with Invanz, as the last culture done from the big toe on the was positive for ESBL E coli and Enterococcus faecalis. Local care with [facility]. MMTINL / IJN: [id number] /
[2021-08-22 16:29] LABS: Glucose,Whole Blood 136 mg/dL (75-99)
[2021-08-22 20:46] LABS: Glucose,Whole Blood 177 mg/dL (75-99)
[2021-08-22] MEDS: ATORVASTATIN 40 MG TAB PO SCH (22:55)
[2021-08-22] MEDS: LATANOPROST 0.005% OPHTH DROPS 2.5 ML BTL BOTH EYES SCH (22:56)
[2021-08-22] MEDS: ERTAPENEM 0.5 GM in SODIUM CHLORIDE 0.9% 50 ML IVPB SCH (22:56)
[2021-08-22] MEDS: ACETAMINOPHEN TAB 325 MG TAB PO PRN (23:06)
[2021-08-23] MEDS: HYDROcodone/APAP 7.5-325MG 1 EACH TAB PO PRN ×2 (06:34→16:14)
[2021-08-23] MEDS: LEVOTHYROXINE 75 MCG TAB PO SCH (06:34)
[2021-08-23 07:03] LABS: Glucose,Whole Blood 88 mg/dL (75-99)
[2021-08-23] MEDS: INSULN ASP PRT/INSULIN ASPART 100 UNIT/ML 10 ML VIAL SQ SCH ×2 (08:12→16:40)
[2021-08-23] MEDS: INSULIN ASPART (NovoLOG) 100 UNIT/ML VIAL SQ SCH ×4 (08:12→21:34)
[2021-08-23] MEDS: CALCIUM ACETATE 667 MG TAB PO SCH ×3 (08:13→16:39)
[2021-08-23] MEDS: METOPROLOL TARTRATE 25 MG TAB PO SCH ×2 (08:18→21:33)
[2021-08-23] MEDS: TAMSULOSIN 0.4 MG CAP.ER.24H PO SCH (08:18)
[2021-08-23] MEDS: PANTOPRAZOLE 40 MG TABLET PO SCH (08:18)
[2021-08-23] MEDS: FUROSEMIDE 80 MG TAB PO SCH ×2 (08:18→16:39)
[2021-08-23] MEDS: FENOFIBRATE 160 MG TAB PO SCH (08:18)
[2021-08-23] MEDS: RIVAROXABAN 15 MG TAB PO SCH (08:19)
[2021-08-23] MEDS: hydrALAZINE HCL 25 MG TAB PO SCH ×3 (08:19→21:32)
[2021-08-23 09:08] LABS: HCT 30.4 % (39.6-50.0); HGB 9.7 g/dL (13.0-17.0); MCH 31.2 pg (27.0-32.0); MCHC 31.9 g/dL (32.0-37.0); MCV 97.7 fL (80.0-97.0); Mean Platelet Volume 10.7 fL (9.5-12.2); Platelet Count 276 X 10*3/uL (140-440); RBC 3.11 X 10*6/uL (4.40-5.60); RDW 15.1 % (11.5-14.5); WBC 9.13 X 10*3/uL (4.50-10.00)
[2021-08-23 11:45] LABS: Glucose,Whole Blood 64 mg/dL (75-99)
[2021-08-23] MEDS ORDERED: DEXTROSE 50% SYRINGE 50 ML IVP ONE (12:04)
[2021-08-23 12:07] LABS: Glucose,Whole Blood 73 mg/dL (75-99)
[2021-08-23] MEDS: COLLAGENASE 250 UNIT/GM OINTMENT 30 GM TUBE TOPICAL SCH (12:08)
--- NOTE | 2021-08-23 12:50 | P.PN ---
Subjective Progress Note Date: 08/23/21 HISTORY OF PRESENT ILLNESS This is a 76-year-old male patient of Dr. Vidales with past medical history of end-stage renal disease on hemodialysis Thursday through left arm fistula, diabetes mellitus type 2, hypertension, hyperlipidemia, hypothyroidism, anemia of chronic disease, remote history of tobacco use. Patient is a long-term patient at the [facility] with chronic wounds to the right foot, last visit was on 08/15 and patient was referred to vascular surgeon for moderate bilateral some oral popliteal disease. Patient has home care nurse in place. He states that his home care nurse advised him to come in the hospital for further evaluation. Patient was found to be afebrile, heart rate 61, blood pressure 139/69, pulse ox 100% on room air. WBC 10.4, hemoglobin 10.3, platelet count 250. Sodium 135, potassium 4.5, chloride 94, CO2 28, BUN 29 creatinine 7.49. Blood glucose running between 124 and 173. Total bilirubin 1.8. Magnesium 1.9. Liver function tests normal. Coronavirus not detected. Wound culture and blood culture have been obtained. Ultrasound of the right lower extremity negative for DVT. Right foot x-ray should revealed soft tissue wound first digit. Suspect early osteomyelitis distal phalanx first digit right foot. Patient has been seen by Dr. Lynn with recommendations for local wound care, cultures, Invanz dosed by pharmacy. Patient has been admitted to the [facility] floor. 08/22: Patient has been seen by Dr. Lynn and he recommends surgical debridement, consult added for Dr. Aleman as patient was recommended to follow-up with Dr. Aleman from the wound center but failed to do so. Consult has been admitted for wound care team. Patient underwent hemodialysis yesterday, none today. Patient has been afebrile, heart rate 72, blood pressure 155/76, pulse ox 97% on room air. Repeat blood work reveals sodium 134, potassium 4.6, chloride 95, CO2 20, BUN 28 creatinine 6.68. Blood sugars are running between 117 and 135. Repeat blood work will be ordered for tomorrow. social work is following for d ischarge planning which will be [facility] once patient is stable. 08/23: Patient has been seen by vascular surgery and is scheduled for debridement today in the OR. Patient is also scheduled for hemodialysis treatment today. He has been afebrile, heart rate 53, blood pressure 129/64, pulse ox 90% on room air. WBC 9.1, hemoglobin 9.7, platelet count 276. Blood sugars are running bet ween 88 and 177. Wound culture is showing gram-negative bacilli. Patient has been continued on Invanz. Anticipate probable discharge on Thursday. REVIEW OF SYSTEMS Constitutional: No fever, no chills, no night sweats. No weight change. No weakness, fatigue or lethargy. No daytime sleepiness. EENT: No headache. No blurred vision or double vision, no loss of vision. No loss of Hearing, no ringing in the ears, no dizziness. No nasal drainage or congestion. No epistaxis. No sore throat. Lungs: No shortness of breath, cough, no sputum production. No wheezing. Cardiovascular: No chest pain, no lower extremity edema. No palpitations. No paroxysmal nocturnal dyspnea. No orthopnea. No lightheadedness or dizziness. No syncopal episodes. Abdominal: Eyes abdominal pain. No nausea, vomiting. No diarrhea. No constipation. No bloody or tarry stools.. No loss of appetite. Genitourinary: No dysuria, increased frequency, urgency. No urinary retention. Musculoskeletal: No myalgias. No muscle weakness, no gait dysfunction, no frequent falls. No back pain. No neck pain. Integumentary: Reported wounds, no lesions. No rash or pruritus. No unusual bruising. No change in hair or nails. Neurologic: No aphasia. No facial droop. No change in mentation. No head injury. No headache. No paralysis. No paresthesia. Psychiatric: No depression. No anxiety. No mood swings. Endocrine: Noted abnormal blood sugars. No weight change. PHYSICAL EXAMINATION Gen: This is a 76-year-old black male resting in bed and appears to be in no acute distress. HEENT: Head is atraumatic, normocephalic. Pupils equal, round. Sclerae is anicteric. NECK: Supple. No JVD. No lymphadenopathy. No thyromegaly. LUNGS: Clear to auscultation. No wheezes or rhonchi. No intercostal retractions. HEART: Irregular rate and rhythm. Systolic murmur. ABDOMEN: Soft. Bowel sounds are present. No masses. No tenderness. EXTREMITIES: No pedal edema. No calf tenderness. Necrotic-appearing tissue on the right foot at the lateral/plantar fifth metatarsal and right great toe, dressing in place. Fistula left upper arm. NEUROLOGICAL: Patient is awake, alert and oriented x3. Cranial nerves 2 through 12 are grossly intact. ASSESSMENT AND PLAN 1. Acute on chronic diabetic and peripheral vascular disease ulcers to the right foot with worsening condition. Tinea on ertapenem dosed by pharmacy, consult with Dr. Shane bustamante. Wound culture and blood cultures in progress. Consult with vascular surgery for debridement scheduled for today. 2. End-stage renal disease on hemodialysis Thursday schedule. Consult with Dr. Oropeza, continue Lasix 80 mg twice daily. 3. Diabetes mellitus type 2 insulin requiring. Continue NovoLog Mix 70/30 4 units twice daily, NovoLog scale before meals and at bedtime, obtain hemoglobin A1c. 4. Hyperlipidemia. Continue atorvastatin 40 mg at bedtime 5. Chronic atrial fibrillation. Continue Lopressor 25 mg twice daily, Xarelto 15 mg daily. (Hold Coreg--according to medication reconciliation, patient was on both Coreg and metoprolol at home prior to admission). 6. Benign prostatic hypertrophy with urinary retention. Patient self caths twice daily which will be continued here. Continue Flomax 0.4 mg daily. 7. Hypothyroidism. Continue levothyroxine 150 g daily. 8. Hypertension. Continue hydralazine 25 mg 3 times daily. Continue midodrine 5 mg twice daily on dialysis days. 8. Glaucoma. Continue eye drops. 9. DVT prophylaxis. Xarelto. 10. GI prophylaxis. Protonix. DISCHARGE PLAN Subacute rehab at [facility] on Thursday Impression and plan of care have been directed as dictated by the signing physician. Carmina Collins nurse practitioner acting as scribe for signing physician. Objective - Vital Signs Vital signs: Vital Signs Temp 97.7 F 08/23/21 07:30 Pulse 53 L 08/23/21 07:30 Resp 18 08/23/21 07:30 BP 129/64 08/23/21 07:30 Pulse Ox 98 08/23/21 07:30 Intake & Output 08/22/21 08/23/21 08/23/21 18:59 06:59 18:59 Output Total 25 Balance -25 Output: Urine 25 Other: # Bowel Movements 1 - Labs CBC & Chem 7: 08/23/21 05:40 08/22/21 09:54 Labs: Abnormal Lab Results - Last 24 Hours (Table) 08/20/21 08/22/21 08/22/21 Range/Units 14:41 09:54 11:11 RBC (4.40-5.60) X 10*6/uL Hgb (13.0-17.0) g/dL Hct (39.6-50.0) % MCV (80.0-97.0) fL MCHC (32.0-37.0) g/dL RDW (11.5-14.5) % Sodium 134 L (137-145) mmol/L Chloride 95 L (98-107) mmol/L BUN 28 H (9-20) mg/dL Creatinine 6.68 H (0.66-1.25) mg/dL Glucose 120 H (74-99) mg/dL POC Glucose (mg/dL) 135 H (75-99) mg/dL Hemoglobin A1c 6.5 H (4.0-6.0) % 08/22/21 08/22/21 08/23/21 Range/Units 16:27 20:43 05:40 RBC 3.11 L (4.40-5.60) X 10*6/uL Hgb 9.7 L (13.0-17.0) g/dL Hct 30.4 L (39.6-50.0) % MCV 97.7 H (80.0-97.0) fL MCHC 31.9 L (32.0-37.0) g/dL RDW 15.1 H (11.5-14.5) % Sodium (137-145) mmol/L Chloride (98-107) mmol/L BUN (9-20) mg/dL Creatinine (0.66-1.25) mg/dL Glucose (74-99) mg/dL POC Glucose (mg/dL) 136 H 177 H (75-99) mg/dL Hemoglobin A1c (4.0-6.0) % Microbiology - Last 24 Hours (Table) 08/20/21 14:41 Blood Culture - Preliminary Blood No Growth after 48 hours 08/20/21 14:41 Blood Culture - Preliminary Blood No Growth after 48 hours 09/21/21 Unknown Gram Stain - Preliminary Toe - Right First Wound Culture - Preliminary Gram Neg Bacilli
--- NOTE | 2021-08-23 13:37 | PN ---
PROGRESS NOTE DATE OF SERVICE: 08/23/2021 REASON FOR FOLLOWUP: Right diabetic foot infection with underlying osteomyelitis. INTERVAL HISTORY: The patient is afebrile. He is currently breathing comfortably. He is waiting for debridement of the right foot wound. The patient denies having any chest pain, shortness of breath or cough. No abdominal pain or any diarrhea. PHYSICAL EXAMINATION: Blood pressure 129/64, pulse of 53, temperature is 97.7. He is 98% on room air. GENERAL DESCRIPTION: General description is an elderly male lying in bed in no distress. RESPIRATORY SYSTEM: Unlabored breathing. Clear to auscultation anteriorly. HEART: S1, S2. Regular rate and rhythm. ABDOMEN: Soft. No tenderness. Right foot is currently dressed. No obvious drainage on the dressing. LABS: Hemoglobin is 9.7, white count of 9.13. Culture showing Gram-negative bacilli. DIAGNOSTIC IMPRESSION AND PLAN: Patient with a right big toe and right foot lateral border wound concerning for underlying osteomyelitis; waiting for surgical debridement and deep cultures. Continue with the Invanz on the basis of recent culture positive and continue with supportive care. MMODL / IJN: [id number] /
[2021-08-23 14:47] LABS: Glucose,Whole Blood 71 mg/dL (75-99)
[2021-08-23 16:33] LABS: Glucose,Whole Blood 80 mg/dL (75-99)
--- NOTE | 2021-08-23 17:17 | PN ---
PROGRESS NOTE Patient is seen for followup for end-stage renal disease. He was admitted to the hospital with right foot wound/ulcer and he is currently maintained on hemodialysis on a Thursday, Thursday, Thursday schedule. Wound culture is growing Gram-negative bacilli. PHYSICAL EXAMINATION: On examination today, patient is awake, comfortable, not in any acute distress. Blood pressure 129/64, heart rate 53 per minute. He is afebrile. EXAMINATION OF THE HEART: S1 and S2. EXAMINATION OF LUNGS: Bilateral breath sounds are heard. ABDOMEN: Soft, nontender. LOWER EXTREMITIES: Examination of lower extremities shows right foot is currently wrapped. TRAUMA MANAGER EXAM: Grossly intact. LABS: Labs from 08/23 show hemoglobin 9.7. Potassium was 4.6 on 08/22/2021. ASSESSMENT: 1. End-stage renal disease, on hemodialysis on a Thursday, Thursday, Thursday schedule via left arm AV fistula. Patient will be dialyzed today. 2. Right foot wound, being followed by ID. Wound culture growing Gram-negative bacilli. Likelihood for osteomyelitis is high. 3. Chronic kidney disease mineral bone disorder, maintained on PhosLo. 4. Hypothyroidism. 5. Chronic atrial fibrillation, maintained on Xarelto. Rate is controlled on beta blockers. PLAN: Hemodialysis today. Continue with antibiotics as per ID. Continue phosphate binders. MMODL / IJN: [id number] /
[2021-08-23] MEDS ORDERED: SODIUM CHLORIDE 0.9% 1,000 ML IV ONE (17:18)
[2021-08-23] MEDS ORDERED: ONDANSETRON 4 MG/2 ML VIAL IVP ONE (17:19)
[2021-08-23] MEDS ORDERED: ONDANSETRON 4 MG/2 ML VIAL ONE (17:20)
[2021-08-23] MEDS ORDERED: DEXAMETHASONE SOD PHOSPHATE 4 MG/ML 1 ML VIAL IVP ONE (17:20)
[2021-08-23 17:30] LABS: Glucose,Whole Blood 84 mg/dL (75-99)
[2021-08-23 18:18] LABS: ALT <8 U/L (10-49); AST 9 U/L (14-35); African American GFR (CKD) 7.5 (60.0-200.0); Albumin/Globulin Ratio 1.24 (1.60-3.17); Alkaline Phosphatase 90 U/L (41-126); BUN/Creat Ratio 4.86 Ratio (12.00-20.00); Carbon Dioxide 27.2 mmol/L (21.6-31.8); Chloride 96 mmol/L (96-109); Globulin 2.9 g/dL (1.6-3.3); Glucose 63 mg/dL (70-110); Non-African American GFR(CKD) 6.5 (60.0-200.0); Potassium 4.6 mmol/L (3.5-5.5); Sodium 135 mmol/L (135-145); Total Protein 6.5 g/dL (6.2-8.2)
[2021-08-23] MEDS ORDERED: fentaNYL (PF) 50 MCG/ML 2 ML AMP ONE (18:27)
[2021-08-23] MEDS ORDERED: LIDOCAINE 1% INJ 10MG/ML (20 ML MDV) ONE (18:27)
[2021-08-23] MEDS ORDERED: PROPOFOL 10 MG/ML 20 ML VIAL IV ONE (18:27)
--- NOTE | 2021-08-23 19:12 | P.OP ---
Date of Procedure: 08/23/21 Description of Procedure: Preoperative diagnosis: Right lower extremity nonhealing wounds, gangrene Postoperative diagnosis: Same Procedure: [Sharp excisional debridement of right great toe 1.5 x 1.7 x 0.3 to bone Toenail clipping 1 toe Lateral foot sharp excisional debridement 8.7 x 4.0 x 0.3 to bone] Surgeon: Lis Mota D.O. EBL: [5 mL] IV fluids: [See records] Urine output: [Not measured] Drains: [None] Complications: [None immediately apparent] Condition: [Stable to recovery] Operative indication and findings: [Lloyd is a 76-year-old male with chronic right lower extremity wounds for the past few months that of a nonhealing with wound care. He presented to the hospital with worsening swelling and changes in his wound with foul smell. He is brought to the operating room for debridement.] Procedure in detail: [The right lower extremity was prepped and draped in usual sterile fashion. A preprocedure timeout was performed, all parties were in agreement. A scalpel was utilized and the necrotic portions of the overlying tissue of the lateral foot were dissected free down to subcutaneous tissues and fat. It was excised sharply and after further debridement it was evident that the bone was exposed at this level. Jorge L was used to try to remove some of the areas of necrotic bone. There was a pocket of purulent and necrotic fluid at the lateral midfoot which was cultured. This is irrigated. Attention was then turned towards the great toe. The toenail needed to be trimmed which was over the nail clipper prior to debridement of the wound. Sharp scalpel was used and the eschar was excised. After appropriate debridement of the tissues it did appear to be through the level of the bone. The areas were irrigated and the wound was dressed The patient was allowed to awaken from anesthesia and transported to recovery in stable condition having tolerated the procedure well. The patient will need at least a right fifth toe ray amputation, he may possibly need a great toe amputation versus a transmetatarsal amputation. He will likely need antibiotics due to his osteomyelitis.]
[2021-08-23] MEDS ORDERED: HYDROmorphone 0.5 MG/0.5 ML SYRINGE IVP ONE (19:23)
[2021-08-23 20:50] LABS: Glucose,Whole Blood 87 mg/dL (75-99)
[2021-08-23] MEDS: ATORVASTATIN 40 MG TAB PO SCH (21:33)
[2021-08-23] MEDS: ERTAPENEM 0.5 GM in SODIUM CHLORIDE 0.9% 50 ML IVPB SCH (21:33)
[2021-08-23] MEDS: LATANOPROST 0.005% OPHTH DROPS 2.5 ML BTL BOTH EYES SCH (21:33)
[2021-08-24] MEDS: HYDROcodone/APAP 7.5-325MG 1 EACH TAB PO PRN ×2 (03:54→21:24)
[2021-08-24] MEDS: LEVOTHYROXINE 75 MCG TAB PO SCH (06:04)
[2021-08-24 06:52] LABS: Glucose,Whole Blood 170 mg/dL (75-99)
[2021-08-24] MEDS: CALCIUM ACETATE 667 MG TAB PO SCH ×3 (08:07→17:11)
[2021-08-24] MEDS: INSULIN ASPART (NovoLOG) 100 UNIT/ML VIAL SQ SCH ×4 (08:08→21:25)
[2021-08-24] MEDS: INSULN ASP PRT/INSULIN ASPART 100 UNIT/ML 10 ML VIAL SQ SCH ×3 (08:08→17:13)
[2021-08-24] MEDS: FENOFIBRATE 160 MG TAB PO SCH (08:09)
[2021-08-24] MEDS: PANTOPRAZOLE 40 MG TABLET PO SCH (08:09)
[2021-08-24] MEDS: FUROSEMIDE 80 MG TAB PO SCH ×2 (08:09→17:12)
[2021-08-24] MEDS: RIVAROXABAN 15 MG TAB PO SCH (08:10)
[2021-08-24] MEDS: METOPROLOL TARTRATE 25 MG TAB PO SCH ×2 (08:10→21:25)
[2021-08-24] MEDS: hydrALAZINE HCL 25 MG TAB PO SCH ×3 (08:10→21:25)
[2021-08-24] MEDS: TAMSULOSIN 0.4 MG CAP.ER.24H PO SCH (08:43)
--- NOTE | 2021-08-24 09:18 | P.PN ---
Subjective Progress Note Date: 08/24/21 Principal diagnosis: this is a 76-year-old male known to us with ESRD on dialysis Thursday. He was admitted because of a right foot wound. He denies any fever chills cough shortness of breath nausea vomiting appetite is good. is known with previous history of peritoneal dialysis diabetes on insulin hypertension. Objective - Vital Signs Vital signs: Vital Signs Temp 98.4 F 08/24/21 08:00 Pulse 73 08/24/21 08:00 Resp 16 08/24/21 08:00 BP 139/76 08/24/21 08:00 Pulse Ox 96 08/24/21 08:00 Intake & Output 08/23/21 08/24/21 08/24/21 18:59 06:59 18:59 Intake Total 100 0 Output Total 5 Balance 95 0 Weight 102.965 kg 102.965 kg Intake: IV 100 0 Output: Urine 0 Uretheral (Mota) 0 Estimated Blood Loss 5 Other: Voiding Method Self-Catheterization # Voids 0 examination awake alert oriented comfortable Vital signs are stable He is afebrile HEENT exam no JVP neck is supple no facial asymmetry Lungs are clear to auscultation good air entry bilaterally Abdomen soft nontender Heart sounds unremarkable for any murmur rub gallop extremities and was trace edema Right foot is bandaged Neurologically awake alert oriented. - Labs CBC & Chem 7: 08/23/21 05:40 08/23/21 05:40 Labs: Abnormal Lab Results - Last 24 Hours (Table) 08/23/21 08/23/21 08/23/21 Range/Units 05:40 11:37 12:05 BUN 36.0 H (9.0-27.0) mg/dL Creatinine 7.4 H* (0.6-1.5) mg/dL Est GFR (CKD-EPI)AfAm 7.5 L (60.0-200.0) Est GFR (CKD-EPI)NonAf 6.5 L (60.0-200.0) BUN/Creatinine Ratio 4.86 L (12.00-20.00) Ratio Glucose 63 L (70-110) mg/dL POC Glucose (mg/dL) 64 L 73 L (75-99) mg/dL AST 9 L (14-35) U/L ALT <8 L (10-49) U/L Albumin 3.60 L (3.80-4.90) g/dL Albumin/Globulin Ratio 1.24 L (1.60-3.17) g/dL 08/23/21 08/24/21 Range/Units 14:43 06:51 BUN (9.0-27.0) mg/dL Creatinine (0.6-1.5) mg/dL Est GFR (CKD-EPI)AfAm (60.0-200.0) Est GFR (CKD-EPI)NonAf (60.0-200.0) BUN/Creatinine Ratio (12.00-20.00) Ratio Glucose (70-110) mg/dL POC Glucose (mg/dL) 71 L 170 H (75-99) mg/dL AST (14-35) U/L ALT (10-49) U/L Albumin (3.80-4.90) g/dL Albumin/Globulin Ratio (1.60-3.17) g/dL Microbiology - Last 24 Hours (Table) 08/23/21 19:01 Wound Culture - Preliminary Foot - Right 08/23/21 19:01 Anaerobic Culture - Preliminary Foot - Right 08/20/21 14:41 Blood Culture - Preliminary Blood No Growth after 72 hours 08/20/21 14:41 Blood Culture - Preliminary Blood No Growth after 72 hours 08/20/21 Unknown Anaerobic Culture - Preliminary Toe - Right First Assessment and Plan Assessment: impression 1. ESRD on dialysis Thursday stable. 2. Admitted with right foot is cold is dressed and is stable 3.anemia of ESRD hemoglobin is down from 10.3-9.7 4. Diabetes mellitus blood sugars are fairly well controlled 5. Chronic atrial fibrillation Recommendation 1.Continue same. 2.next Dialysis is Thursday 3.Antibiotics per primary team. 4.Monitor calcium phosphorus hemoglobin
--- NOTE | 2021-08-24 10:46 | P.PN ---
Subjective Progress Note Date: 08/24/21 This is a 76-year-old male patient of Dr. Vidales with past medical history of end-stage renal disease on hemodialysis Thursday through left arm fistula, diabetes mellitus type 2, hypertension, hyperlipidemia, hypothyroidism, anemia of chronic disease, remote history of tobacco use. Lorin vidal is a long-term patient at the [facility] with chronic wounds to the right foot, last visit was on 08/15 and patient was referred to vascular surgeon for moderate bilateral some oral popliteal disease. Patient has home care nurse in place. He states that his home care nurse advised him to come in the hospital for further evaluation. Patient was found to be afebrile, heart rate 61, blood pressure 139/69, pulse ox 100% on room air. WBC 10.4, hemoglobin 10.3, platelet count 250. Sodium 135, potassium 4.5, chloride 94, CO2 28, BUN 29 creatinine 7.49. Blood glucose running between 124 and 173. Total bilirubin 1.8. Magnesium 1.9. Liver function tests normal. Coronavirus not detected. Wound culture and blood culture have been obtained. Ultrasound of the right lower extremity negative for DVT. Right foot x-ray should revealed soft tissue wound first digit. Suspect early o steomyelitis distal phalanx first digit right foot. Patient has been seen by Dr. Lynn with recommendations for local wound care, cultures, Invanz dosed by pharmacy. Patient has been admitted to the [facility] floor. 08/22: Patient has been seen by Dr. Lynn and he recommends surgical debridement, consult added for Dr. Aleman as patient was recommended to follow-up with Dr. Aleman from the wound center but failed to do so. Consult has been admitted for wound care team. Patient underwent hemodialysis yesterday, none today. Patient has been afebrile, heart rate 72, blood pressure 155/76, pulse ox 97% on room air. Repeat blood work reveals sodium 134, potassium 4.6, chloride 95, CO2 20, BUN 28 creatinine 6.68. Blood sugars are running between 117 and 135. Repeat blood work will be ordered for tomorrow. social work is following for discharge planning which will be [facility] once patient is stable. 08/23: Patient has been seen by vascular surgery and is scheduled for debridement today in the OR. Patient is also scheduled for hemodialysis treatment today. He has been afebrile, heart rate 53, blood pressure 129/64, pulse ox 90% on room air. WBC 9.1, hemoglobin 9.7, platelet count 276. Blood sugars are running between 88 and 177. Wound culture is showing gram-negative bacilli. Patient has been continued on Invanz. Anticipate probable discharge on Thursday. 08/24: Patient underwent a surgical debridement yesterday. Right great toe ulceration measures 1.5 x 1.5 x 0.3 to bone, and the lateral foot ulceration measures 8.7 x 4.0 x 0.3 to bone. Patient more than likely will need a right fifth toe amputation possibly great toe amputation versus a trans-met amput ation. He is noncompliant with offloading. He is currently utilizing Santyl to the wounds. He does have a walker in his room. Patient will continue on Invanz. Anticipate probable discharge on Thursday to metal large REVIEW OF SYSTEMS Constitutional: No fever, no chills, no night sweats. No weight change. No weakness, fatigue or lethargy. No daytime sleepiness. EENT: No headache. No blurred vision or double vision, no loss of vision. No loss of Hearing, no ringing in the ears, no dizziness. No nasal drainage or congestion. No epistaxis. No sore throat. Lungs: No shortness of breath, cough, no sputum production. No wheezing. Cardiovascular: No chest pain, no lower extremity edema. No palpitations. No paroxysmal nocturnal dyspnea. No orthopnea. No lightheadedness or dizziness. No syncopal episodes. Abdominal: Eyes abdominal pain. No nausea, vomiting. No diarrhea. No constipation. No bloody or tarry stools.. No loss of appetite. Genitourinary: No dysuria, increased frequency, urgency. No urinary retention. Musculoskeletal: No myalgias. No muscle weakness, no gait dysfunction, no frequent falls. No back pain. No neck pain. Integumentary: Reported wounds, no lesions. No rash or pruritus. No unusual bruising. No change in hair or nails. Neurologic: No aphasia. No facial droop. No change in mentation. No head injury. No headache. No paralysis. No paresthesia. Psychiatric: No depression. No anxiety. No mood swings. Endocrine: Noted abnormal blood sugars. No weight change. PHYSICAL EXAMINATION Gen: This is a 76-year-old black male resting in bed and appears to be in no acute distress. HEENT: Head is atraumatic, normocephalic. Pupils equal, round. Sclerae is anicteric. NECK: Supple. No JVD. No lymphadenopathy. No thyromegaly. LUNGS: Clear to auscultation. No wheezes or rhonchi. No intercostal retractions. HEART: Irregular rate and rhythm. Systolic murmur. ABDOMEN: Soft. Bowel sounds are present. No masses. No tenderness. EXTREMITIES: No pedal edema. No calf tenderness. Necrotic-appearing tissue on the right foot at the lateral/plantar fifth metatarsal and right great toe, dressing in place. Fistula left upper arm. NEUROLOGICAL: Patient is awake, alert and oriented x3. Cranial nerves 2 through 12 are grossly intact. ASSESSMENT AND PLAN 1. Acute on chronic diabetic and peripheral vascular disease ulcers to the right foot with worsening condition. Continue ertapenem dosed by pharmacy, consult with Dr. Lynn appreciated. Wound culture and blood cultures in progress. Consult to vascular surgery appreciated. Status post surgical debridement to right great toe and right lateral foot 2. End-stage renal disease on hemodialysis Thursday schedule. Consult with Dr. Oropeza, continue Lasix 80 mg twice daily. 3. Diabetes mellitus type 2 insulin requiring. Continue NovoLog Mix 70/30 4 units twice daily, NovoLog scale before meals and at bedtime, obtain hemoglobin A1c. 4. Hyperlipidemia. Continue atorvastatin 40 mg at bedtime 5. Chronic atrial fibrillation. Continue Lopressor 25 mg twice daily, Xarelto 15 mg daily. (Hold Coreg--according to medication reconciliation, patient was on both Coreg and metoprolol at home prior to admission). 6. Benign prostatic hypertrophy with urinary retention. Patient self caths twice daily which will be continued here. Continue Flomax 0.4 mg daily. 7. Hypothyroidism. Continue levothyroxine 150 g daily. 8. Hypertension. Continue hydralazine 25 mg 3 times daily. Continue midodrine 5 mg twice daily on dialysis days. 8. Glaucoma. Continue eye drops. 9. DVT prophylaxis. Xarelto. 10. GI prophylaxis. Protonix. DISCHARGE PLAN Subacute rehab at [facility] on Thursday Impression and plan of care have been directed as dictated by the signing physician. Mei Yi nurse practitioner acting as scribe for signing physician. Objective - Vital Signs Vital signs: Vital Signs Temp 98.4 F 08/24/21 08:00 Pulse 73 08/24/21 08:00 Resp 16 08/24/21 08:00 BP 139/76 08/24/21 08:00 Pulse Ox 96 08/24/21 08:00 Intake & Output 08/23/21 08/24/21 08/24/21 18:59 06:59 18:59 Intake Total 100 0 Output Total 5 Balance 95 0 Weight 102.965 kg 102.965 kg Intake: IV 100 0 Output: Urine 0 Uretheral (Mota) 0 Estimated Blood Loss 5 Other: Voiding Method Self-Catheterization Self-Catheterization # Voids 0 - Labs CBC & Chem 7: 08/23/21 05:40 08/23/21 05:40 Labs: Abnormal Lab Results - Last 24 Hours (Table) 08/23/21 08/23/21 08/23/21 Range/Units 05:40 11:37 12:05 BUN 36.0 H (9.0-27.0) mg/dL Creatinine 7.4 H* (0.6-1.5) mg/dL Est GFR (CKD-EPI)AfAm 7.5 L (60.0-200.0) Est GFR (CKD-EPI)NonAf 6.5 L (60.0-200.0) BUN/Creatinine Ratio 4.86 L (12.00-20.00) Ratio Glucose 63 L (70-110) mg/dL POC Glucose (mg/dL) 64 L 73 L (75-99) mg/dL AST 9 L (14-35) U/L ALT <8 L (10-49) U/L Albumin 3.60 L (3.80-4.90) g/dL Albumin/Globulin Ratio 1.24 L (1.60-3.17) g/dL 08/23/21 08/24/21 Range/Units 14:43 06:51 BUN (9.0-27.0) mg/dL Creatinine (0.6-1.5) mg/dL Est GFR (CKD-EPI)AfAm (60.0-200.0) Est GFR (CKD-EPI)NonAf (60.0-200.0) BUN/Creatinine Ratio (12.00-20.00) Ratio Glucose (70-110) mg/dL POC Glucose (mg/dL) 71 L 170 H (75-99) mg/dL AST (14-35) U/L ALT (10-49) U/L Albumin (3.80-4.90) g/dL Albumin/Globulin Ratio (1.60-3.17) g/dL Microbiology - Last 24 Hours (Table) 08/23/21 19:01 Wound Culture - Preliminary Foot - Right 08/23/21 19:01 Anaerobic Culture - Preliminary Foot - Right 08/20/21 14:41 Blood Culture - Preliminary Blood No Growth after 72 hours 08/20/21 14:41 Blood Culture - Preliminary Blood No Growth after 72 hours 08/20/21 Unknown Anaerobic Culture - Preliminary Toe - Right First Assessment and Plan (1) Non-pressure chronic ulcer of other part of right foot with necrosis of bone Current Visit: Yes Status: Acute Code(s): L97.514 - NON-PRS CHRONIC ULCER OTH PRT RIGHT FOOT W NECROSIS OF BONE SNOMED Code(s): 359995784 (2) Non-pressure chronic ulcer of other part of right foot with fat layer expo sed Current Visit: Yes Status: Acute Code(s): L97.512 - NON-PRS CHRONIC ULCER OTH PRT RIGHT FOOT W FAT LAYER EXPOSED SNOMED Code(s): 574154131 (3) Type 2 diabetes mellitus with foot ulcer Current Visit: Yes Status: Acute Code(s): E11.621 - TYPE 2 DIABETES MELLITUS WITH FOOT ULCER; L97.509 - NON-PRESSURE CHRONIC ULCER OTH PRT UNSP FOOT W UNSP SEVERITY SNOMED Code(s): 632378623
[2021-08-24 11:38] LABS: Glucose,Whole Blood 210 mg/dL (75-99)
[2021-08-24] MEDS: COLLAGENASE 250 UNIT/GM OINTMENT 30 GM TUBE TOPICAL SCH (12:19)
--- NOTE | 2021-08-24 15:29 | P.PN ---
Subjective Progress Note Date: 08/24/21 Postop day #1 status post debridement of right foot wounds 2. Currently the patient indicates she feels well and offers no complaints. Specifically indicated that his foot feels better postoperatively than preoperatively. Objective - Vital Signs Vital signs: Vital Signs Temp 98.4 F 08/24/21 08:00 Pulse 73 08/24/21 08:00 Resp 16 08/24/21 08:00 BP 139/76 08/24/21 08:00 Pulse Ox 96 08/24/21 08:00 Intake & Output 08/23/21 08/24/21 08/24/21 18:59 06:59 18:59 Intake Total 100 0 Output Total 5 Balance 95 0 Weight 102.965 kg 102.965 kg Intake: IV 100 0 Output: Urine 0 Uretheral (Mota) 0 Estimated Blood Loss 5 Other: Voiding Method Self-Catheterization Self-Catheterization # Voids 0 - Exam Right foot wounds are clean. There is no leg edema. - Labs CBC & Chem 7: 08/23/21 05:40 08/23/21 05:40 Labs: Abnormal Lab Results - Last 24 Hours (Table) 08/23/21 08/24/21 08/24/21 Range/Units 05:40 06:51 11:36 BUN 36.0 H (9.0-27.0) mg/dL Creatinine 7.4 H* (0.6-1.5) mg/dL Est GFR (CKD-EPI)AfAm 7.5 L (60.0-200.0) Est GFR (CKD-EPI)NonAf 6.5 L (60.0-200.0) BUN/Creatinine Ratio 4.86 L (12.00-20.00) Ratio Glucose 63 L (70-110) mg/dL POC Glucose (mg/dL) 170 H 210 H (75-99) mg/dL AST 9 L (14-35) U/L ALT <8 L (10-49) U/L Albumin 3.60 L (3.80-4.90) g/dL Albumin/Globulin Ratio 1.24 L (1.60-3.17) g/dL Microbiology - Last 24 Hours (Table) 08/20/21 Unknown Gram Stain - Final Toe - Right First Wound Culture - Final Alcaligen. faecalis 08/23/21 19:01 Gram Stain - Preliminary Foot - Right Wound Culture - Preliminary 08/23/21 19:01 Anaerobic Culture - Preliminary Foot - Right 08/20/21 14:41 Blood Culture - Preliminary Blood No Growth after 72 hours 08/20/21 14:41 Blood Culture - Preliminary Blood No Growth after 72 hours 08/20/21 Unknown Anaerobic Culture - Preliminary Toe - Right First Assessment and Plan Assessment: Postop day #1 status post surgical debridement right foot wound. Plan: Continue local wound care and IV antibiotics. Time with Patient: Less than 30
[2021-08-24 16:24] LABS: Glucose,Whole Blood 196 mg/dL (75-99)
--- NOTE | 2021-08-24 19:55 | PN ---
PROGRESS NOTE DATE OF SERVICE: 08/24/2021 REASON FOR FOLLOWUP: Right foot ulcer and osteomyelitis. INTERVAL HISTORY: The patient is afebrile. The patient is status post debridement of right big toe and right foot ( ) wound with extension down to the bone. The patient tolerated the procedure. The patient denies having any chest pain, shortness of breath. No abdominal pain. No worsening pain to the left foot. PHYSICAL EXAMINATION: Blood pressure 137/58 with a pulse of 66, temperature 97.4. He is 96% on room air. General description is an elderly male lying in bed in no distress. Respiratory system: Unlabored breathing, clear to auscultation anteriorly. Heart: S1, S2. Regular rate and rhythm. Abdomen soft, no tenderness. Right foot is currently dressed, no drainage on the dressing. LAB: OR culture pending. Initial culture with ( ). DIAGNOSTIC IMPRESSION AND PLAN: Patient with a right big toe right foot lateral border wound chronic with underlying osteomyelitis. Recent outpatient culture positive for ESBL E coli. Cultures superficial this admission. ( ) deep culture pending. Patient is covered with Invanz, to continue, local wound care as ordered and monitor clinical course closely. MMODL / IJN: [id number] /
[2021-08-24 20:52] LABS: Glucose,Whole Blood 245 mg/dL (75-99)
[2021-08-24] MEDS: ERTAPENEM 0.5 GM in SODIUM CHLORIDE 0.9% 50 ML IVPB SCH (21:25)
[2021-08-24] MEDS: ATORVASTATIN 40 MG TAB PO SCH (21:25)
[2021-08-24] MEDS: LATANOPROST 0.005% OPHTH DROPS 2.5 ML BTL BOTH EYES SCH (21:26)
[2021-08-25] MEDS: LEVOTHYROXINE 75 MCG TAB PO SCH (05:31)
[2021-08-25 07:00] LABS: Glucose,Whole Blood 165 mg/dL (75-99)
[2021-08-25] MEDS: METOPROLOL TARTRATE 25 MG TAB PO SCH ×2 (08:02→21:20)
[2021-08-25] MEDS: hydrALAZINE HCL 25 MG TAB PO SCH ×3 (08:02→21:19)
[2021-08-25] MEDS: FENOFIBRATE 160 MG TAB PO SCH (08:02)
[2021-08-25] MEDS: TAMSULOSIN 0.4 MG CAP.ER.24H PO SCH (08:02)
[2021-08-25] MEDS: RIVAROXABAN 15 MG TAB PO SCH (08:02)
[2021-08-25] MEDS: PANTOPRAZOLE 40 MG TABLET PO SCH (08:02)
[2021-08-25] MEDS: FUROSEMIDE 80 MG TAB PO SCH ×2 (08:02→16:07)
[2021-08-25] MEDS: CALCIUM ACETATE 667 MG TAB PO SCH ×3 (08:02→16:06)
[2021-08-25] MEDS: INSULIN ASPART (NovoLOG) 100 UNIT/ML VIAL SQ SCH ×4 (08:11→21:18)
[2021-08-25] MEDS: INSULN ASP PRT/INSULIN ASPART 100 UNIT/ML 10 ML VIAL SQ SCH (08:12)
--- NOTE | 2021-08-25 08:30 | P.PN ---
Subjective Progress Note Date: 08/25/21 Principal diagnosis: this is a 76-year-old male known to us with ESRD on dialysis Thursday. He was admitted because of a right foot wound. He complains of pain in his right foot. He denies any fever chills cough shortness of breath nausea vomiting appetite is good. is known with previous history of peritoneal dialysis diabetes on insulin hypertension. Objective - Vital Signs Vital signs: Vital Signs Temp 97.9 F 08/25/21 00:59 Pulse 59 L 08/25/21 00:59 Resp 18 08/25/21 00:59 BP 121/62 08/25/21 00:59 Pulse Ox 97 08/25/21 00:59 Intake & Output 08/24/21 08/25/21 08/25/21 18:59 06:59 18:59 Intake Total 1080 Balance 1080 Intake: Oral 1080 Other: Voiding Method Self-Catheterization Self-Catheterization # Voids 1 # Bowel Movements 1 On exam she is awake alert oriented comfortable HEENT exam no JVP neck is supple no facial asymmetry Lungs are clear to auscultation good air entry bilaterally Heart sounds unremarkable no murmur rub gallop Abdomen soft nontender no masses felt Extremity exam no edema right foot is bandaged. Neurologically awake alert oriented - Labs CBC & Chem 7: 08/23/21 05:40 08/23/21 05:40 Labs: Abnormal Lab Results - Last 24 Hours (Table) 08/24/21 08/24/21 08/24/21 Range/Units 11:36 16:23 20:50 POC Glucose (mg/dL) 210 H 196 H 245 H (75-99) mg/dL 08/25/21 Range/Units 06:58 POC Glucose (mg/dL) 165 H (75-99) mg/dL Microbiology - Last 24 Hours (Table) 08/23/21 19:01 Gram Stain - Preliminary Foot - Right Wound Culture - Preliminary Gram Neg Bacilli Gram Neg Bacilli#2 Group D Enterococcus 08/20/21 14:41 Blood Culture - Preliminary Blood No Growth after 96 hours 08/20/21 14:41 Blood Culture - Preliminary Blood No Growth after 96 hours 08/20/21 Unknown Gram Stain - Final Toe - Right First Wound Culture - Final Alcaligen. faecalis Assessment and Plan Assessment: impression 1. ESRD on dialysis Thursday stable. 2. Admitted with right foot wound which is is dressed and is stable 3. anemia of ESRD hemoglobin is down from 10.3-9.7 on 08/23/2021 4. Diabetes mellitus blood sugars are fairly well controlled 5. Chronic atrial fibrillation Recommendation 1.Continue same. 2.next Dialysis is Thursday, tomorrow for 30 half hours and will take off 3 L 3.Antibiotics per primary team. 4.Monitor calcium phosphorus hemoglobin
--- NOTE | 2021-08-25 09:50 | P.PN ---
Subjective Progress Note Date: 08/25/21 This is a 76-year-old male patient of Dr. Vidales with past medical history of end-stage renal disease on hemodialysis Thursday through left arm fistula, diabetes mellitus type 2, hypertension, hyperlipidemia, hypothyroidism, anemia of chronic disease, remote history of tobacco use. Lorin vidal is a long-term patient at the wound healing [facility] with chronic wounds to the right foot, last visit was on 08/15 and patient was referred to vascular surgeon for moderate bilateral some oral popliteal disease. Patient has home care nurse in place. He states that his home care nurse advised him to come in the hospital for further evaluation. Patient was found to be afebrile, heart rate 61, blood pressure 139/69, pulse ox 100% on room air. WBC 10.4, hemoglobin 10.3, platelet count 250. Sodium 135, potassium 4.5, chloride 94, CO2 28, BUN 29 creatinine 7.49. Blood glucose running between 124 and 173. Total bilirubin 1.8. Magnesium 1.9. Liver function tests normal. Coronavirus not detected. Wound culture and blood culture have been obtained. Ultrasound of the right lower extremity negative for DVT. Right foot x-ray should revealed soft tissue wound first digit. Suspect early o steomyelitis distal phalanx first digit right foot. Patient has been seen by Dr. Lynn with recommendations for local wound care, cultures, Invanz dosed by pharmacy. Patient has been admitted to [facility] floor. 08/22: Patient has been seen by Dr. Lynn and he recommends surgical debridement, consult added for Dr. Aleman as patient was recommended to follow-up with Dr. Aleman from the wound center but failed to do so. Consult has been admitted for wound care team. Patient underwent hemodialysis yesterday, none today. Patient has been afebrile, heart rate 72, blood pressure 155/76, pulse ox 97% on room air. Repeat blood work reveals sodium 134, potassium 4.6, chloride 95, CO2 20, BUN 28 creatinine 6.68. Blood sugars are running between 117 and 135. Repeat blood work will be ordered for tomorrow. social work is following for discharge planning which will be [facility] once patient is stable. 08/23: Patient has been seen by vascular surgery and is scheduled for debridement today in the OR. Patient is also scheduled for hemodialysis treatment today. He has been afebrile, heart rate 53, blood pressure 129/64, pulse ox 90% on room air. WBC 9.1, hemoglobin 9.7, platelet count 276. Blood sugars are running between 88 and 177. Wound culture is showing gram-negative bacilli. Patient has been continued on Invanz. Anticipate probable discharge on Thursday. 08/24: Patient underwent a surgical debridement yesterday. Right great toe ulceration measures 1.5 x 1.5 x 0.3 to bone, and the lateral foot ulceration measures 8.7 x 4.0 x 0.3 to bone. Patient more than likely will need a right fifth toe amputation possibly great toe amputation versus a trans-met amput ation. He is noncompliant with offloading. He is currently utilizing Santyl to the wounds. He does have a walker in his room. Patient will continue on Invanz. Anticipate probable discharge on Thursday to [facility]. 08/25: Patient is extremely upset this morning feeling that the doctors are not doing anything for him only coming in and leaving. He is currently on Invanz per infectious disease, utilizing Santyl to the ulcerations of the right foot. A surgical shoe is in his room which should be utilized for ambulation. Apply foam to the lateral aspect of the right foot and then the shoe. Increase insulin to 6 units twice a day related to elevated glucose levels. Patient is also complaining of inability to sleep. Melatonin added. REVIEW OF SYSTEMS Constitutional: No fever, no chills, no night sweats. No weight change. No weakness, fatigue or lethargy. No daytime sleepiness. EENT: No headache. No blurred vision or double vision, no loss of vision. No loss of Hearing, no ringing in the ears, no dizziness. No nasal drainage or congestion. No epistaxis. No sore throat. Lungs: No shortness of breath, cough, no sputum production. No wheezing. Cardiovascular: No chest pain, no lower extremity edema. No palpitations. No paroxysmal nocturnal dyspnea. No orthopnea. No lightheadedness or dizziness. No syncopal episodes. Abdominal: Eyes abdominal pain. No nausea, vomiting. No diarrhea. No constipation. No bloody or tarry stools.. No loss of appetite. Genitourinary: No dysuria, increased frequency, urgency. No urinary retention. Musculoskeletal: No myalgias. No muscle weakness, no gait dysfunction, no frequent falls. No back pain. No neck pain. Integumentary: Reported wounds, no lesions. No rash or pruritus. No unusual bruising. No change in hair or nails. Neurologic: No aphasia. No facial droop. No change in mentation. No head injury. No headache. No paralysis. No paresthesia. Psychiatric: No depression. No anxiety. No mood swings. Endocrine: Noted abnormal blood sugars. No weight change. PHYSICAL EXAMINATION Gen: This is a 76-year-old black male resting in bed and appears to be in no acute distress. HEENT: Head is atraumatic, normocephalic. Pupils equal, round. Sclerae is anicteric. NECK: Supple. No JVD. No lymphadenopathy. No thyromegaly. LUNGS: Clear to auscultation. No wheezes or rhonchi. No intercostal retractions. HEART: Irregular rate and rhythm. Systolic murmur. ABDOMEN: Soft. Bowel sounds are present. No masses. No tenderness. EXTREMITIES: No pedal edema. No calf tenderness. Necrotic-appearing tissue on the right foot at the lateral/plantar fifth metatarsal and right great toe, dressing in place. Fistula left upper arm. NEUROLOGICAL: Patient is awake, alert and oriented x3. Cranial nerves 2 through 12 are grossly intact. ASSESSMENT AND PLAN 1. Acute on chronic diabetic and peripheral vascular disease ulcers to the right foot with worsening condition. Continue ertapenem dosed by pharmacy, consult with Dr. Lynn appreciated. Wound culture and blood cultures in progress. Consult to vascular surgery appreciated. Status post surgical debridement to right great toe and right lateral foot. Continue to utilize Santyl for dressing changes and foam for protection to the lateral aspect of right foot. Surgical she was in place. Patient is nonweightbearing to the right forefoot. 2. End-stage renal disease on hemodialysis Thursday schedule. Consult with Dr. Oropeza, continue Lasix 80 mg twice daily. 3. Diabetes mellitus type 2 insulin requiring. Increased NovoLog Mix 70/30 6 units twice daily, NovoLog scale before meals and at bedtime, hemoglobin A1c 6.5. 4. Hyperlipidemia. Continue atorvastatin 40 mg at bedtime 5. Chronic atrial fibrillation. Continue Lopressor 25 mg twice daily, Xarelto 15 mg daily. (Hold Coreg--according to medication reconciliation, patient was o n both Coreg and metoprolol at home prior to admission). 6. Benign prostatic hypertrophy with urinary retention. Patient self caths twice daily which will be continued here. Continue Flomax 0.4 mg daily. 7. Hypothyroidism. Continue levothyroxine 150 g daily. 8. Hypertension. Continue hydralazine 25 mg 3 times daily. Continue midodrine 5 mg twice daily on dialysis days. 8. Glaucoma. Continue eye drops. 9. Insomnia. Melatonin 5 mg by mouth at bedtime 10. DVT prophylaxis. Xarelto. 11. GI prophylaxis. Protonix. DISCHARGE PLAN Subacute rehab at [facility] on Thursday Impression and plan of care have been directed as dictated by the signing physician. Mei Yi nurse practitioner acting as scribe for signing physician. Objective - Vital Signs Vital signs: Vital Signs Temp 97.5 F L 08/25/21 08:00 Pulse 52 L 08/25/21 08:00 Resp 16 08/25/21 08:00 BP 133/69 08/25/21 08:00 Pulse Ox 98 08/25/21 08:00 Intake & Output 08/24/21 08/25/21 08/25/21 18:59 06:59 18:59 Intake Total 1080 Balance 1080 Intake: Oral 1080 Other: Voiding Method Self-Catheterization Self-Catheterization # Voids 1 # Bowel Movements 1 - Labs CBC & Chem 7: 08/23/21 05:40 08/23/21 05:40 Labs: Abnormal Lab Results - Last 24 Hours (Table) 08/24/21 08/24/21 08/24/21 Range/Units 11:36 16:23 20:50 POC Glucose (mg/dL) 210 H 196 H 245 H (75-99) mg/dL 08/25/21 Range/Units 06:58 POC Glucose (mg/dL) 165 H (75-99) mg/dL Microbiology - Last 24 Hours (Table) 08/23/21 19:01 Gram Stain - Preliminary Foot - Right Wound Culture - Preliminary Gram Neg Bacilli Gram Neg Bacilli#2 Group D Enterococcus 08/20/21 14:41 Blood Culture - Preliminary Blood No Growth after 96 hours 08/20/21 14:41 Blood Culture - Preliminary Blood No Growth after 96 hours 08/20/21 Unknown Gram Stain - Final Toe - Right First Wound Culture - Final Alcaligen. 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
[2021-08-25 11:34] LABS: Glucose,Whole Blood 132 mg/dL (75-99)
[2021-08-25] MEDS: COLLAGENASE 250 UNIT/GM OINTMENT 30 GM TUBE TOPICAL SCH (11:59)
[2021-08-25] MEDS: HYDROcodone/APAP 7.5-325MG 1 EACH TAB PO PRN ×2 (14:24→19:33)
[2021-08-25 16:37] LABS: Glucose,Whole Blood 128 mg/dL (75-99)
--- NOTE | 2021-08-25 19:56 | PN ---
PROGRESS NOTE DATE OF SERVICE: 08/25/2021 REASON FOR FOLLOWUP: Right diabetic foot infection with underlying osteomyelitis. INTERVAL HISTORY: The patient is afebrile. The patient is breathing comfortably. Denies having any chest pain, shortness of breath or cough. No abdominal pain or any worsening pain to the right foot. PHYSICAL EXAMINATION: Blood pressure 128/81 with a pulse of 70, temperature 97.8. He is 98% on room air. GENERAL DESCRIPTION: General description is an elderly male lying in bed in no distress. RESPIRATORY SYSTEM: Unlabored breathing. Clear to auscultation anteriorly. HEART: S1, S2. Regular rate and rhythm. ABDOMEN: Soft. No tenderness. Right foot is currently dressed. No obvious drainage on the dressing. LABS: No new labs have been obtained today. Cultures are currently pending. DIAGNOSTIC IMPRESSION AND PLAN: Patient with a right big toe and right foot lateral border diabetic foot infection with underlying osteomyelitis. The patient is currently covered with Invanz on the basis of previous culture. Current cultures are showing an Enterococcus and Gram-negative with ID and sensitivity pending. Will wait for the cultures to finalize to determine discharge antibiotics. Local care to continue with Delmer and monitor his clinical course closely. Continue supportive care. MMODL / IJN: [id number] /
[2021-08-25 21:10] LABS: Glucose,Whole Blood 172 mg/dL (75-99)
[2021-08-25] MEDS: ATORVASTATIN 40 MG TAB PO SCH (21:19)
[2021-08-25] MEDS: ERTAPENEM 0.5 GM in SODIUM CHLORIDE 0.9% 50 ML IVPB SCH (21:20)
[2021-08-25] MEDS: MELATONIN 5 MG TABLET PO SCH (21:20)
[2021-08-25] MEDS: LATANOPROST 0.005% OPHTH DROPS 2.5 ML BTL BOTH EYES SCH (21:21)
[2021-08-26] MEDS: INSULN ASP PRT/INSULIN ASPART 100 UNIT/ML 10 ML VIAL SQ SCH ×3 (02:02→16:40)
[2021-08-26] MEDS: LEVOTHYROXINE 75 MCG TAB PO SCH (06:00)
[2021-08-26 06:56] LABS: Glucose,Whole Blood 140 mg/dL (75-99)
[2021-08-26] MEDS: hydrALAZINE HCL 25 MG TAB PO SCH ×3 (07:31→20:56)
[2021-08-26] MEDS: CALCIUM ACETATE 667 MG TAB PO SCH ×3 (07:31→16:46)
[2021-08-26] MEDS: PANTOPRAZOLE 40 MG TABLET PO SCH (07:31)
[2021-08-26] MEDS: FUROSEMIDE 80 MG TAB PO SCH (07:31)
[2021-08-26] MEDS: FENOFIBRATE 160 MG TAB PO SCH (07:31)
[2021-08-26] MEDS: INSULIN ASPART (NovoLOG) 100 UNIT/ML VIAL SQ SCH ×4 (07:31→20:55)
[2021-08-26] MEDS: TAMSULOSIN 0.4 MG CAP.ER.24H PO SCH (07:31)
[2021-08-26] MEDS: COLLAGENASE 250 UNIT/GM OINTMENT 30 GM TUBE TOPICAL SCH ×2 (07:32→16:46)
[2021-08-26] MEDS: METOPROLOL TARTRATE 25 MG TAB PO SCH ×2 (07:34→20:56)
[2021-08-26] MEDS: RIVAROXABAN 15 MG TAB PO SCH (07:34)
--- NOTE | 2021-08-26 10:09 | P.PN ---
Subjective Patient is seen in follow-up for end-stage renal disease. He is maintained on hemodialysis on Thursday schedule. Being treated for right foot wound. No chest pain or shortness of breath. No vomiting or diarrhea. Vital signs are stable. General: The patient appeared well nourished and normally developed. HEENT: Head exam is unremarkable. LUNGS: Breath sounds decreased. HEART: Rate and Rhythm are regular. ABDOMEN: Soft, no distention. EXTREMITITES: Trace edema. No drainage. Objective - Vital Signs Vital signs: Vital Signs Temp 97.4 F L 08/26/21 08:00 Pulse 56 L 08/26/21 08:00 Resp 18 08/26/21 08:00 BP 145/65 08/26/21 08:00 Pulse Ox 98 08/26/21 08:00 Intake & Output 08/25/21 08/26/21 08/26/21 18:59 06:59 18:59 Intake Total 1080 Output Total 10 Balance 1080 -10 Intake: Oral 1080 Output: Urine 10 Uretheral (Mota) 10 Other: Voiding Method Self-Catheterization Indwelling Catheter # Voids 0 1 # Bowel Movements 1 - Labs CBC & Chem 7: 08/23/21 05:40 08/23/21 05:40 Labs: Abnormal Lab Results - Last 24 Hours (Table) 08/25/21 08/25/21 08/25/21 Range/Units 11:33 16:36 21:08 POC Glucose (mg/dL) 132 H 128 H 172 H (75-99) mg/dL 08/26/21 Range/Units 06:54 POC Glucose (mg/dL) 140 H (75-99) mg/dL Microbiology - Last 24 Hours (Table) 08/23/21 19:01 Gram Stain - Final Foot - Right Wound Culture - Final Escherichia coli Enterobacter cloacae Enterococcus faecalis 08/20/21 14:41 Blood Culture - Preliminary Blood No Growth after 120 hours 08/20/21 14:41 Blood Culture - Preliminary Blood No Growth after 120 hours 08/20/21 Unknown Anaerobic Culture - Final Toe - Right First Assessment and Plan Plan: Assessment: 1. End-stage renal disease maintained on hemodialysis on Thursday schedule. 2. Right foot wound status post debridement. On antibiotics. 3. Chronic kidney disease mineral bone disease maintained on PhosLo. 4. Hypertension with chronic disease. Stable. 5. Diabetes mellitus. 6. Anemia of chronic kidney disease. Plan: Hemodialysis today. Add Norbert.
[2021-08-26 11:29] LABS: Glucose,Whole Blood 107 mg/dL (75-99)
[2021-08-26] MEDS ORDERED: DARBEPOETIN ALFA 40 MCG/0.4 ML SYRINGE SQ SCH (12:00)
--- NOTE | 2021-08-26 12:44 | P.PN ---
Subjective Progress Note Date: 08/26/21 Patient seen and examined sitting up at the bedside chair. Plan is for discharge to rehab. Patient states right foot pain and improve since debridement. Has a dressing clean dry and intact. He is been afebrile. He continues on IV antibiotics. Objective - Vital Signs Vital signs: Vital Signs Temp 97.4 F L 08/26/21 08:00 Pulse 56 L 08/26/21 08:00 Resp 18 08/26/21 08:00 BP 145/65 08/26/21 08:00 Pulse Ox 98 08/26/21 08:00 Intake & Output 08/25/21 08/26/21 08/26/21 18:59 06:59 18:59 Intake Total 1080 Output Total 10 Balance 1080 -10 Intake: Oral 1080 Output: Urine 10 Uretheral (Mota) 10 Other: Voiding Method Self-Catheterization Indwelling Catheter # Voids 0 1 # Bowel Movements 1 - Exam General appearance: The patient is alert, oriented, in no acute distress. HET: Head is normocephalic and atraumatic. Extremities: Right lower extremity with edema, warm to touch with good capillary refill. Dressing clean dry and intact. Neurological: No focal deficits. Alert and oriented 3. - Labs CBC & Chem 7: 08/23/21 05:40 08/23/21 05:40 Labs: Abnormal Lab Results - Last 24 Hours (Table) 08/25/21 08/25/21 08/25/21 Range/Units 11:33 16:36 21:08 POC Glucose (mg/dL) 132 H 128 H 172 H (75-99) mg/dL 08/26/21 Range/Units 06:54 POC Glucose (mg/dL) 140 H (75-99) mg/dL Microbiology - Last 24 Hours (Table) 08/23/21 19:01 Gram Stain - Final Foot - Right Wound Culture - Final Escherichia coli Enterobacter cloacae Enterococcus faecalis 08/20/21 14:41 Blood Culture - Preliminary Blood No Growth after 120 hours 08/20/21 14:41 Blood Culture - Preliminary Blood No Growth after 120 hours 08/20/21 Unknown Anaerobic Culture - Final Toe - Right First Assessment and Plan Assessment: 1. Nonhealing diabetic wounds to right foot and right great toe status post debridement 2. Peripheral arterial disease, abnormal ABIs 3. Type 2 diabetes 4. Osteomyelitis 5. End-stage renal disease on hemodialysis Plan: 1. Continue local wound care 2. Recommend patient follow-up in wound care center after discharge 3. Continue IV antibiotics per recommendations from infectious disease The impression and plan of care has been dictated as directed. Dr. Mota I performed a history and examination of this patient, discussed the same with the dictator. I agree with the dictator's note ,documented as a scribe. Any additional findings or plans will be noted.
--- NOTE | 2021-08-26 13:15 | P.PN ---
Subjective Progress Note Date: 08/26/21 This is a 76-year-old male patient of Dr. Vidales with past medical history of end-stage renal disease on hemodialysis Thursday through left arm fistula, diabetes mellitus type 2, hypertension, hyperlipidemia, hypothyroidism, anemia of chronic disease, remote history of tobacco use. Sunday fonseca is a long-term patient at the [facility] with chronic wounds to the right foot, last visit was on 08/15 and patient was referred to vascular surgeon for moderate bilateral some oral popliteal disease. Patient has home care nurse in place. He states that his home care nurse advised him to come in the hospital for further evaluation. Patient was found to be afebrile, heart rate 61, blood pressure 139/69, pulse ox 100% on room air. WBC 10.4, hemoglobin 10.3, platelet count 250. Sodium 135, potassium 4.5, chloride 94, CO2 28, BUN 29 creatinine 7.49. Blood glucose running between 124 and 173. Total bilirubin 1.8. Magnesium 1.9. Liver function tests normal. Coronavirus not detected. Wound culture and blood culture have been obtained. Ultrasound of the right lower extremity negative for DVT. Right foot x-ray should revealed soft tissue wound first digit. Suspect early osteomyelitis distal phalanx first digit right foot. Patient has been seen by Dr. Dominguez with recommendations for local wound care, cultures, Invanz dosed by pharmacy. Patient has been admitted to the [facility] floor. 08/22: Patient has been seen by Dr. Dominguez and he recommends surgical debridement, consult added for Dr. Aleman as patient was recommended to follow-up with Dr. Aleman from the wound center but failed to do so. Consult has been admitted for wound care team. Patient underwent hemodialysis yesterday, none today. Patient has been afebrile, heart rate 72, blood pressure 155/76, pulse ox 97% on room air. Repeat blood work reveals sodium 134, potassium 4.6, chloride 95, CO2 20, BUN 28 creatinine 6.68. Blood sugars are running between 117 and 135. Repeat blood work will be ordered for tomorrow. social work is following for discharge planning which will be [facility] once patient is stable. 08/23: Patient has been seen by vascular surgery and is scheduled for debridement today in the OR. Patient is also scheduled for hemodialysis treatment today. He has been afebrile, heart rate 53, blood pressure 129/64, pulse ox 90% on room air. WBC 9.1, hemoglobin 9.7, platelet count 276. Blood sugars are running between 88 and 177. Wound culture is showing gram-negative bacilli. Patient has been continued on Invanz. Anticipate probable discharge on Thursday. 08/24: Patient underwent a surgical debridement yesterday. Right great toe ulceration measures 1.5 x 1.5 x 0.3 to bone, and the lateral foot ulceration measures 8.7 x 4.0 x 0.3 to bone. Patient more than likely will need a right fifth toe amputation possibly great toe amputation versus a trans-met amp utation. He is noncompliant with offloading. He is currently utilizing Santyl to the wounds. He does have a walker in his room. Patient will continue on Invanz. Anticipate probable discharge on Thursday to [facility]. 08/25: Patient is extremely upset this morning feeling that the doctors are not doing anything for him only coming in and leaving. He is currently on Invanz per infectious disease, utilizing Santyl to the ulcerations of the right foot. A surgical shoe is in his room which should be utilized for ambulation. Apply foam to the lateral aspect of the right foot and then the shoe. Increase insulin to 6 units twice a day related to elevated glucose levels. Patient is also complaining of inability to sleep. Melatonin added. 08/26, patient has culture showing ESBL E. coli, Enterobacter cloacae, Enterococcus faecalis, from the diabetic foot ulcer, was seen by Dr. Dominguez for which recommendation is for ERTAPENEM 0.5 mg IV daily, to infusions, however patient has hemodialysis, and most likely would have a hard time getting a PICC line ordered. Dr. Galo is going to finalize dosing of the Kermit tobacco, for dialysis infusion treatments if able. Since undergoing dialysis today, no new complaints including nausea vomiting diarrhea. Plan for subacute rehab, to [facility], once antibiotic is finalized REVIEW OF SYSTEMS Constitutional: No fever, no chills, no night sweats. No weight change. No weakness, fatigue or lethargy. No daytime sleepiness. EENT: No headache. No blurred vision or double vision, no loss of vision. No loss of Hearing, no ringing in the ears, no dizziness. No nasal drainage or congestion. No epistaxis. No sore throat. Lungs: No shortness of breath, cough, no sputum production. No wheezing. Cardiovascular: No chest pain, no lower extremity edema. No palpitations. No paroxysmal nocturnal dyspnea. No orthopnea. No lightheadedness or dizziness. No syncopal episodes. Abdominal: Eyes abdominal pain. No nausea, vomiting. No diarrhea. No constipation. No bloody or tarry stools.. No loss of appetite. Genitourinary: No dysuria, increased frequency, urgency. No urinary retention. Musculoskeletal: No myalgias. No muscle weakness, no gait dysfunction, no frequent falls. No back pain. No neck pain. Integumentary: Reported wounds, no lesions. No rash or pruritus. No unusual bruising. No change in hair or nails. Neurologic: No aphasia. No facial droop. No change in mentation. No head injury. No headache. No paralysis. No paresthesia. Psychiatric: No depression. No anxiety. No mood swings. Endocrine: Noted abnormal blood sugars. No weight change. Objective - Vital Signs Vital signs: Vital Signs Temp 97.4 F L 08/26/21 08:00 Pulse 56 L 08/26/21 08:00 Resp 18 08/26/21 08:00 BP 145/65 08/26/21 08:00 Pulse Ox 98 08/26/21 08:00 Intake & Output 08/25/21 08/26/21 08/26/21 18:59 06:59 18:59 Intake Total 1080 Output Total 10 Balance 1080 -10 Intake: Oral 1080 Output: Urine 10 Uretheral (Mota) 10 Other: Voiding Method Self-Catheterization Indwelling Catheter Self-Catheterization # Voids 0 1 # Bowel Movements 1 - Constitutional General appearance: Present: cooperative, no acute distress - EENT Eyes: Present: EOMI, PERRLA, dentition normal, normal appearance ENT: Present: normal oropharynx - Neck Neck: Present: normal ROM - Respiratory Respiratory: bilateral: CTA, negative: diminished, dullness, rales - Cardiovascular Rhythm: regular Heart sounds: normal: S1, S2 - Gastrointestinal General gastrointestinal: Present: normal bowel sounds, soft - Integumentary Integumentary Comment(s): Right foot ulcer, toe and lateral foot, surgically dressed new dressing applied today Integumentary: Present: normal - Neurologic Neurologic: Present: CNII-XII intact - Musculoskeletal Musculoskeletal: Present: gait normal, generalized weakness - Psychiatric Psychiatric: Present: A&O x's 3, appropriate affect, intact judgment & insight - Labs CBC & Chem 7: 08/23/21 05:40 08/23/21 05:40 Labs: Abnormal Lab Results - Last 24 Hours (Table) 08/25/21 08/25/21 08/26/21 Range/Units 16:36 21:08 06:54 POC Glucose (mg/dL) 128 H 172 H 140 H (75-99) mg/dL 08/26/21 Range/Units 11:26 POC Glucose (mg/dL) 107 H (75-99) mg/dL Microbiology - Last 24 Hours (Table) 08/23/21 19:01 Gram Stain - Final Foot - Right Wound Culture - Final Escherichia coli Enterobacter cloacae Enterococcus faecalis 08/20/21 14:41 Blood Culture - Preliminary Blood No Growth after 120 hours 08/20/21 14:41 Blood Culture - Preliminary Blood No Growth after 120 hours 08/20/21 Unknown Anaerobic Culture - Final Toe - Right First Assessment and Plan Plan: 1. Acute on chronic diabetic and peripheral vascular disease ulcers to the right foot with worsening condition. Continue ertapenem dosed by pharmacy, consult with Dr. Dominguez appreciated. Wound culture and blood cultures in progress. Consult to vascular surgery appreciated. Status post surgical debridement to right great toe and right lateral foot. Continue to utilize Santyl for dressing changes and foam for protection to the lateral aspect of right foot. Surgical she was in place. Patient is nonweightbearing to the right forefoot. The tap and I'm, to be finalized by Dr. Galo prior to transfer 2. End-stage renal disease on hemodialysis Thursday schedule. Consult with Dr. Oropeza, continue Lasix 80 mg twice daily. 3. Diabetes mellitus type 2 insulin requiring. Increased NovoLog Mix 70/30 6 units twice daily, NovoLog scale before meals and at bedtime, hemoglobin A1c 6.5. 4. Hyperlipidemia. Continue atorvastatin 40 mg at bedtime 5. Chronic atrial fibrillation. Continue Lopressor 25 mg twice daily, Xarelto 15 mg daily. (Hold Coreg--according to medication reconciliation, patient was on both Coreg and metoprolol at home prior to admission). 6. Benign prostatic hypertrophy with urinary retention. Patient self caths twice daily which will be continued here. Continue Flomax 0.4 mg daily. 7. Hypothyroidism. Continue levothyroxine 150 g daily. 8. Hypertension. Continue hydralazine 25 mg 3 times daily. Continue midodrine 5 mg twice daily on dialysis days. 8. Glaucoma. Continue eye drops. 9. Insomnia. Melatonin 5 mg by mouth at bedtime 10. DVT prophylaxis. Xarelto. 11. GI prophylaxis. Protonix. discharge planning e[facility] Subacute rehab at [facility] thursday once antibiotic is finalized
[2021-08-26] MEDS: HYDROcodone/APAP 7.5-325MG 1 EACH TAB PO PRN ×2 (14:54→22:50)
[2021-08-26 16:40] LABS: Glucose,Whole Blood 70 mg/dL (75-99)
[2021-08-26 20:36] LABS: Glucose,Whole Blood 146 mg/dL (75-99)
[2021-08-26] MEDS: ATORVASTATIN 40 MG TAB PO SCH (20:56)
[2021-08-26] MEDS: MELATONIN 5 MG TABLET PO SCH (20:56)
[2021-08-26] MEDS: LATANOPROST 0.005% OPHTH DROPS 2.5 ML BTL BOTH EYES SCH (20:59)
--- NOTE | 2021-08-26 21:31 | PN ---
PROGRESS NOTE DATE OF SERVICE: 08/26/2021. FOLLOWUP: Right foot diabetic infection with osteomyelitis. INTERVAL HISTORY: The patient is afebrile. The patient is breathing comfortably. Patient denies having any chest pain. No shortness of breath. No cough. No abdominal pain. No worsening pain to right foot. PHYSICAL EXAMINATION: Blood pressure 116/54, pulse 83, temperature 97.5. He is 97% on room air. The patient is an elderly male lying in bed in no distress. Respiratory system: Unlabored breathing, clear to auscultation anteriorly. Heart S1, S2. Regular rate and rhythm. Abdomen soft, no tenderness. Right foot is currently dressed. No obvious drainage on the dressing. DIAGNOSTIC IMPRESSION AND PLAN: This patient with right diabetic foot infection with concern for underlying osteomyelitis. The patient is currently covered with unfortunately daily dose for which the patient may need a PICC line. Discussed with pharmacy to if he could use 1 gram after each avoid PICC line placement. Continue supportive care. MMODL / IJN: [id number] /
[2021-08-26] MEDS: ERTAPENEM 0.5 GM in SODIUM CHLORIDE 0.9% 50 ML IVPB SCH ×2 (22:07→22:40)
[2021-08-27] MEDS: LEVOTHYROXINE 75 MCG TAB PO SCH (05:31)
[2021-08-27] MEDS: HYDROcodone/APAP 7.5-325MG 1 EACH TAB PO PRN ×2 (05:55→19:28)
[2021-08-27 06:42] LABS: African American GFR (CKD) 10 (>60 ml/min/1.73 sqM); Anion Gap 11 mmol/L; Blood Urea Nitrogen 39 mg/dL (9-20); Calcium 8.5 mg/dL (8.4-10.2); Carbon Dioxide 28 mmol/L (22-30); Chloride 94 mmol/L (98-107); Glucose 118 mg/dL (74-99); Non-African American GFR(CKD) 9 (>60 ml/min/1.73 sqM); Phosphorus 3.6 mg/dL (2.5-4.5); Potassium 5.1 mmol/L (3.5-5.1); Sodium 133 mmol/L (137-145)
[2021-08-27 07:08] LABS: Glucose,Whole Blood 123 mg/dL (75-99)
[2021-08-27] MEDS: INSULN ASP PRT/INSULIN ASPART 100 UNIT/ML 10 ML VIAL SQ SCH ×2 (07:11→16:50)
[2021-08-27] MEDS: INSULIN ASPART (NovoLOG) 100 UNIT/ML VIAL SQ SCH ×4 (07:11→21:02)
[2021-08-27] MEDS: FUROSEMIDE 80 MG TAB PO SCH ×2 (08:19→16:03)
[2021-08-27] MEDS: hydrALAZINE HCL 25 MG TAB PO SCH ×3 (08:20→21:11)
[2021-08-27] MEDS: PANTOPRAZOLE 40 MG TABLET PO SCH (08:20)
[2021-08-27] MEDS: METOPROLOL TARTRATE 25 MG TAB PO SCH ×2 (08:20→21:11)
[2021-08-27] MEDS: CALCIUM ACETATE 667 MG TAB PO SCH ×3 (08:20→16:52)
[2021-08-27] MEDS: RIVAROXABAN 15 MG TAB PO SCH (08:20)
[2021-08-27] MEDS: TAMSULOSIN 0.4 MG CAP.ER.24H PO SCH (08:20)
[2021-08-27] MEDS: FENOFIBRATE 160 MG TAB PO SCH (08:20)
[2021-08-27] MEDS: COLLAGENASE 250 UNIT/GM OINTMENT 30 GM TUBE TOPICAL SCH (08:25)
[2021-08-27 09:12] LABS: Basophils # (A) 0.09 X 10*3/uL (0.00-0.10); Basophils % (A) 1.1 %; Eosinophils % (A) 3.8 %; HCT 30.5 % (39.6-50.0); HGB 9.6 g/dL (13.0-17.0); Lymphocytes # (A) 1.17 X 10*3/uL (0.90-5.00); Lymphocytes % (A) 14.6 %; MCHC 31.5 g/dL (32.0-37.0); MCV 98.4 fL (80.0-97.0); Mean Platelet Volume 11.1 fL (9.5-12.2); Monocytes # (A) 0.83 X 10*3/uL (0.20-1.00); Monocytes % (A) 10.4 %; Neutrophils # (A) 5.56 X 10*3/uL (1.80-7.70); Neutrophils % (A) 69.6 %; Platelet Count 269 X 10*3/uL (140-440); RDW 14.9 % (11.5-14.5); WBC 7.99 X 10*3/uL (4.50-10.00)
--- NOTE | 2021-08-27 09:55 | P.PN ---
Subjective Patient is seen in follow-up for end-stage renal disease. He is maintained on hemodialysis on Thursday schedule. Being treated for right foot wound. No chest pain or shortness of breath. No vomiting or diarrhea. No active complaints at this time. Vital signs are stable. General: The patient appeared well nourished and normally developed. HEENT: Head exam is unremarkable. LUNGS: Breath sounds decreased. HEART: Rate and Rhythm are regular. ABDOMEN: Soft, no distention. EXTREMITITES: Trace edema. No drainage. Objective - Vital Signs Vital signs: Vital Signs Temp 97.7 F 08/27/21 08:00 Pulse 70 08/27/21 08:00 Resp 18 08/27/21 08:00 BP 121/59 08/27/21 08:00 Pulse Ox 100 08/27/21 08:00 Intake & Output 08/26/21 08/27/21 08/27/21 18:59 06:59 18:59 Intake Total 800 Output Total 3300 Balance -2500 Intake: Oral 500 Hemodialysis 300 Output: Hemodialysis 3300 Other: Voiding Method Self-Catheterization Self-Catheterization Self-Catheterization # Bowel Movements 1 - Labs CBC & Chem 7: 08/27/21 05:34 08/27/21 05:34 Labs: Abnormal Lab Results - Last 24 Hours (Table) 08/26/21 08/26/21 08/26/21 Range/Units 11:26 16:39 20:34 RBC (4.40-5.60) X 10*6/uL Hgb (13.0-17.0) g/dL Hct (39.6-50.0) % MCV (80.0-97.0) fL MCHC (32.0-37.0) g/dL RDW (11.5-14.5) % Sodium (137-145) mmol/L Chloride (98-107) mmol/L BUN (9-20) mg/dL Creatinine (0.66-1.25) mg/dL Glucose (74-99) mg/dL POC Glucose (mg/dL) 107 H 70 L 146 H (75-99) mg/dL 08/27/21 08/27/21 08/27/21 Range/Units 05:34 05:34 07:04 RBC 3.10 L (4.40-5.60) X 10*6/uL Hgb 9.6 L (13.0-17.0) g/dL Hct 30.5 L (39.6-50.0) % MCV 98.4 H (80.0-97.0) fL MCHC 31.5 L (32.0-37.0) g/dL RDW 14.9 H (11.5-14.5) % Sodium 133 L (137-145) mmol/L Chloride 94 L (98-107) mmol/L BUN 39 H (9-20) mg/dL Creatinine 5.78 H (0.66-1.25) mg/dL Glucose 118 H (74-99) mg/dL POC Glucose (mg/dL) 123 H (75-99) mg/dL Microbiology - Last 24 Hours (Table) 08/23/21 19:01 Anaerobic Culture - Final Foot - Right Anaerobic Gm Negative Bacilli 08/20/21 14:41 Blood Culture - Final Blood No Growth after 144 hours 08/20/21 14:41 Blood Culture - Final Blood No Growth after 144 hours Assessment and Plan Plan: Assessment: 1. End-stage renal disease maintained on hemodialysis on Thursday schedule. 2. Right foot wound status post debridement. On antibiotics. 3. Chronic kidney disease mineral bone disease maintained on PhosLo. 4. Hypertension with chronic disease. Stable. 5. Diabetes mellitus. 6. Anemia of chronic kidney disease. On Aranes. Plan: Hemodialysis tomorrow.
[2021-08-27 11:42] LABS: Glucose,Whole Blood 159 mg/dL (75-99)
--- NOTE | 2021-08-27 13:08 | P.PN ---
Subjective Progress Note Date: 08/27/21 This is a 76-year-old male patient of Dr. Vidales with past medical history of end-stage renal disease on hemodialysis Thursday through left arm fistula, diabetes mellitus type 2, hypertension, hyperlipidemia, hypothyroidism, anemia of chronic disease, remote history of tobacco use. Rosalia valverde is a long-term patient at the wound healing [facility] with chronic wounds to the right foot, last visit was on 08/15 and patient was referred to vascular surgeon for moderate bilateral some oral popliteal disease. Patient has home care nurse in place. He states that his home care nurse advised him to come in the hospital for further evaluation. Patient was found to be afebrile, heart rate 61, blood pressure 139/69, pulse ox 100% on room air. WBC 10.4, hemoglobin 10.3, platelet count 250. Sodium 135, potassium 4.5, chloride 94, CO2 28, BUN 29 creatinine 7.49. Blood glucose running between 124 and 173. Total bilirubin 1.8. Magnesium 1.9. Liver function tests normal. Coronavirus not detected. Wound culture and blood culture have been obtained. Ultrasound of the right lower extremity negative for DVT. Right foot x-ray should revealed soft tissue wound first digit. Suspect early osteomyelitis distal phalanx first digit right foot. Patient has been seen by Dr. Dominguez with recommendations for local wound care, cultures, Invanz dosed by pharmacy. Patient has been admitted to the [facility] floor. 08/22: Patient has been seen by Dr. Dominguez and he recommends surgical debridement, consult added for Dr. Aleman as patient was recommended to follow-up with Dr. Aleman from the wound center but failed to do so. Consult has been admitted for wound care team. Patient underwent hemodialysis yesterday, none today. Patient has been afebrile, heart rate 72, blood pressure 155/76, pulse ox 97% on room air. Repeat blood work reveals sodium 134, potassium 4.6, chloride 95, CO2 20, BUN 28 creatinine 6.68. Blood sugars are running between 117 and 135. Repeat blood work will be ordered for tomorrow. social work is following for discharge planning which will be [facility] once patient is stable. 08/23: Patient has been seen by vascular surgery and is scheduled for debridement today in the OR. Patient is also scheduled for hemodialysis treatment today. He has been afebrile, heart rate 53, blood pressure 129/64, pulse ox 90% on room air. WBC 9.1, hemoglobin 9.7, platelet count 276. Blood sugars are running between 88 and 177. Wound culture is showing gram-negative bacilli. Patient has been continued on Invanz. Anticipate probable discharge on Thursday. 08/24: Patient underwent a surgical debridement yesterday. Right great toe ulceration measures 1.5 x 1.5 x 0.3 to bone, and the lateral foot ulceration measures 8.7 x 4.0 x 0.3 to bone. Patient more than likely will need a right fifth toe amputation possibly great toe amputation versus a trans-met ampu tation. He is noncompliant with offloading. He is currently utilizing Santyl to the wounds. He does have a walker in his room. Patient will continue on Invanz. Anticipate probable discharge on Thursday to [facility]. 08/25: Patient is extremely upset this morning feeling that the doctors are not doing anything for him only coming in and leaving. He is currently on Invanz per infectious disease, utilizing Santyl to the ulcerations of the right foot. A surgical shoe is in his room which should be utilized for ambulation. Apply foam to the lateral aspect of the right foot and then the shoe. Increase insulin to 6 units twice a day related to elevated glucose levels. Patient is also complaining of inability to sleep. Melatonin added. 08/26, patient has culture showing ESBL E. coli, Enterobacter cloacae, Enterococcus faecalis, from the diabetic foot ulcer, was seen by Dr. Dominguez for which recommendation is for ERTAPENEM 0.5 mg IV daily, to infusions, however patient has hemodialysis, and most likely would have a hard time getting a PICC line ordered. Dr. Galo is going to finalize dosing of the Kermit tobacco, for dialysis infusion treatments if able. Since undergoing dialysis today, no new complaints including nausea vomiting diarrhea. Plan for subacute rehab, to [facility], once antibiotic is finalized 08/27: Dr. Dominguez has recommended vancomycin 1 g with each dialysis treatment to avoid PICC line insertion. Patient is maintained on dialysis Thursday. Family have determined that patient is not to go to [place] and they are requesting [place] and attempts are being made to set up transportation to the [facility]. Anticipate that transportation issue will be resolved the patient can be discharged [facility] tomorrow. Repeat blood work reveals hemoglobin 9.6, sodium 133, chloride 94, BUN 39 and creatinine 5.78. Her blood glucose running between 70 and 159. REVIEW OF SYSTEMS Constitutional: No fever, no chills, no night sweats. No weight change. No weakness, fatigue or lethargy. No daytime sleepiness. EENT: No headache. No blurred vision or double vision, no loss of vision. No loss of Hearing, no ringing in the ears, no dizziness. No nasal drainage or congestion. No epistaxis. No sore throat. Lungs: No shortness of breath, cough, no sputum production. No wheezing. Cardiovascular: No chest pain, no lower extremity edema. No palpitations. No paroxysmal nocturnal dyspnea. No orthopnea. No lightheadedness or dizziness. No syncopal episodes. Abdominal: Denies abdominal pain. No nausea, vomiting. No diarrhea. No constipation. No bloody or tarry stools.. No loss of appetite. Genitourinary: No dysuria, increased frequency, urgency. No urinary retention. Musculoskeletal: No myalgias. No muscle weakness, no gait dysfunction, no frequent falls. No back pain. No neck pain. Integumentary: Reported wounds, no lesions. No rash or pruritus. No unusual bruising. No change in hair or nails. Neurologic: No aphasia. No facial droop. No change in mentation. No head injury. No headache. No paralysis. No paresthesia. Psychiatric: No depression. No anxiety. No mood swings. Endocrine: Noted abnormal blood sugars. No weight change. PHYSICAL EXAMINATION Gen: This is a 76-year-old black male resting in bed and appears to be in no acute distress. HEENT: Head is atraumatic, normocephalic. Pupils equal, round. Sclerae is anicteric. NECK: Supple. No JVD. No lymphadenopathy. No thyromegaly. LUNGS: Clear to auscultation. No wheezes or rhonchi. No intercostal retractions. HEART: Irregular rate and rhythm. Systolic murmur. ABDOMEN: Soft. Bowel sounds are present. No masses. No tenderness. EXTREMITIES: No pedal edema. No calf tenderness. Necrotic-appearing tissue on the right foot at the lateral/plantar fifth metatarsal and right great toe, dressing in place. Fistula left upper arm. NEUROLOGICAL: Patient is awake, alert and oriented x3. Cranial nerves 2 through 12 are grossly intact. ASSESSMENT AND PLAN 1. Acute on chronic diabetic and peripheral vascular disease ulcers to the right foot with worsening condition. Continue ertapenem dosed by pharmacy, consult with Dr. Dominguez appreciated. Wound culture and blood cultures in progress. Consult to vascular surgery appreciated. Status post surgical debridement to right great toe and right lateral foot. Continue to utilize Santyl for dressing changes and foam for protection to the lateral aspect of right foot. Patient is nonweightbearing to the right forefoot. Dr. Dominguez is recommending vancomycin 1 g with each dialysis to avoid PICC line placement. 2. End-stage renal disease on hemodialysis Thursday schedule. Consult with Dr. Oropeza, continue Lasix 80 mg twice daily. 3. Diabetes mellitus type 2 insulin requiring. Increased NovoLog Mix 70/30 6 units twice daily, NovoLog scale before meals and at bedtime, hemoglobin A1c 6.5. 4. Hyperlipidemia. Continue atorvastatin 40 mg at bedtime 5. Chronic atrial fibrillation. Continue Lopressor 25 mg twice daily, Xarelto 15 mg daily. (Hold Coreg--according to medication reconciliation, patient was on both Coreg and metoprolol at home prior to admission). 6. Benign prostatic hypertrophy with urinary retention. Patient self caths twice daily which will be continued here. Continue Flomax 0.4 mg daily. 7. Hypothyroidism. Continue levothyroxine 150 g daily. 8. Hypertension. Continue hydralazine 25 mg 3 times daily. Continue midodrine 5 mg twice daily on dialysis days. 8. Glaucoma. Continue eye drops. 9. Insomnia. Melatonin 5 mg by mouth at bedtime 10. DVT prophylaxis. Xarelto. 11. GI prophylaxis. Protonix. DISCHARGE PLAN Subacute rehab at [facility] on Thursday Impression and plan of care have been directed as dictated by the signing physician. Carmina Collins nurse practitioner acting as scribe for signing physician. Objective - Vital Signs Vital signs: Vital Signs Temp 97.7 F 08/27/21 08:00 Pulse 70 08/27/21 08:00 Resp 18 08/27/21 08:00 BP 121/59 08/27/21 08:00 Pulse Ox 100 08/27/21 08:00 Intake & Output 08/26/21 08/27/21 08/27/21 18:59 06:59 18:59 Intake Total 800 Output Total 3300 Balance -2500 Intake: Oral 500 Hemodialysis 300 Output: Hemodialysis 3300 Other: Voiding Method Self-Catheterization Self-Catheterization Self-Catheterization # Bowel Movements 1 - Labs CBC & Chem 7: 08/27/21 05:34 08/27/21 05:34 Labs: Abnormal Lab Results - Last 24 Hours (Table) 08/26/21 08/26/21 08/26/21 Range/Units 11:26 16:39 20:34 RBC (4.40-5.60) X 10*6/uL Hgb (13.0-17.0) g/dL Hct (39.6-50.0) % MCV (80.0-97.0) fL MCHC (32.0-37.0) g/dL RDW (11.5-14.5) % Sodium (137-145) mmol/L Chloride (98-107) mmol/L BUN (9-20) mg/dL Creatinine (0.66-1.25) mg/dL Glucose (74-99) mg/dL POC Glucose (mg/dL) 107 H 70 L 146 H (75-99) mg/dL 08/27/21 08/27/21 08/27/21 Range/Units 05:34 05:34 07:04 RBC 3.10 L (4.40-5.60) X 10*6/uL Hgb 9.6 L (13.0-17.0) g/dL Hct 30.5 L (39.6-50.0) % MCV 98.4 H (80.0-97.0) fL MCHC 31.5 L (32.0-37.0) g/dL RDW 14.9 H (11.5-14.5) % Sodium 133 L (137-145) mmol/L Chloride 94 L (98-107) mmol/L BUN 39 H (9-20) mg/dL Creatinine 5.78 H (0.66-1.25) mg/dL Glucose 118 H (74-99) mg/dL POC Glucose (mg/dL) 123 H (75-99) mg/dL Microbiology - Last 24 Hours (Table) 08/23/21 19:01 Anaerobic Culture - Final Foot - Right Anaerobic Gm Negative Bacilli 08/20/21 14:41 Blood Culture - Final Blood No Growth after 144 hours 08/20/21 14:41 Blood Culture - Final Blood No Growth after 144 hours
[2021-08-27 16:50] LABS: Glucose,Whole Blood 123 mg/dL (75-99)
[2021-08-27] MEDS: ACETAMINOPHEN TAB 325 MG TAB PO PRN (16:52)
--- NOTE | 2021-08-27 18:40 | PN ---
PROGRESS NOTE DATE OF SERVICE: 08/27/2021 REASON FOR FOLLOWUP: Right lower extremity wound and osteomyelitis. INTERVAL HISTORY: The patient is afebrile. The patient is breathing comfortably. The patient denies having any chest pain, shortness of breath or cough. No abdominal pain or any worsening pain to the right foot. PHYSICAL EXAMINATION: Blood pressure 121/59, pulse of 70, temperature 97.7. He is 100% on room air. GENERAL DESCRIPTION: General description is an elderly male lying in bed in no distress. RESPIRATORY SYSTEM: Unlabored breathing. Clear to auscultation anteriorly. HEART: S1, S2. Regular rate and rhythm. ABDOMEN: Soft. No tenderness. Right foot is currently dressed. No obvious drainage on the dressing. LABS: Hemoglobin is 9.6, white count 7.99, BUN of 39, creatinine is 5.78. DIAGNOSTIC IMPRESSION AND PLAN: Patient with right foot wound, non-healing, with underlying osteomyelitis. Culture positive for multiple pathogens. Patient is covered with Invanz. Did check with the pharmacy. Unfortunately, we cannot use after dialysis and it has to be daily dosed. He will need a PICC line once cleared by Nephrology and plan is for Invanz mg daily for 6 weeks. Local wound care per Surgery. Continue supportive care. MMODL / IJN: [id number] /
[2021-08-27 21:10] LABS: Glucose,Whole Blood 128 mg/dL (75-99)
[2021-08-27] MEDS: MELATONIN 5 MG TABLET PO SCH (21:11)
[2021-08-27] MEDS: LATANOPROST 0.005% OPHTH DROPS 2.5 ML BTL BOTH EYES SCH (21:11)
[2021-08-27] MEDS: ATORVASTATIN 40 MG TAB PO SCH (21:11)
[2021-08-28] MEDS: ERTAPENEM 0.5 GM in SODIUM CHLORIDE 0.9% 50 ML IVPB SCH ×2 (00:04→20:53)
[2021-08-28 02:49] LABS: Hepatitis B Surface Antigen ConfNotVal
[2021-08-28] MEDS: LEVOTHYROXINE 75 MCG TAB PO SCH (05:29)
[2021-08-28 07:15] LABS: Glucose,Whole Blood 139 mg/dL (75-99)
[2021-08-28] MEDS: PANTOPRAZOLE 40 MG TABLET PO SCH (07:50)
[2021-08-28] MEDS: RIVAROXABAN 15 MG TAB PO SCH (07:50)
[2021-08-28] MEDS: FUROSEMIDE 80 MG TAB PO SCH ×2 (07:50→15:34)
[2021-08-28] MEDS: INSULIN ASPART (NovoLOG) 100 UNIT/ML VIAL SQ SCH ×4 (07:50→20:44)
[2021-08-28] MEDS: FENOFIBRATE 160 MG TAB PO SCH (07:50)
[2021-08-28] MEDS: TAMSULOSIN 0.4 MG CAP.ER.24H PO SCH (07:50)
[2021-08-28] MEDS: CALCIUM ACETATE 667 MG TAB PO SCH ×3 (07:50→18:04)
[2021-08-28] MEDS: COLLAGENASE 250 UNIT/GM OINTMENT 30 GM TUBE TOPICAL SCH (07:51)
[2021-08-28] MEDS: INSULN ASP PRT/INSULIN ASPART 100 UNIT/ML 10 ML VIAL SQ SCH ×2 (07:51→18:05)
--- NOTE | 2021-08-28 10:16 | P.DS ---
Providers Date of admission: 08/20/21 16:09 Expected date of discharge: 08/29/21 Attending physician: Andrade Walter Consults: 08/20/21 16:09 Consult Physician Routine Consulting Provider: Mónica Dominguez Consult Reason/Comments: Nonhealing foot ulcer Do you want consulting provider notified?: Yes Consult Physician Routine Consulting Provider: Nhung Oropeza Consult Reason/Comments: ESRD Do you want consulting provider notified?: Yes 08/22/21 11:04 Consult Physician Routine Consulting Provider: Allen Aleman Consult Reason/Comments: debridement Do you want consulting provider notified?: Yes Primary care physician: [facility] [place] Course: This is a 76-year-old male patient of Dr. Vidales with past medical history of end-stage renal disease on hemodialysis Thursday through left arm fistula, diabetes mellitus type 2, hypertension, hyperlipidemia, hypothyroidism, anemia of chronic disease, remote history of tobacco use. Patient is a long-term patient at the wound healing Center with chronic wounds to the right foot, last visit was on 08/15 and patient was referred to vascular surgeon for moderate bilateral some oral popliteal disease. Patient has home care nurse in place. He states that his home care nurse advised him to come in the hospital for further evaluation. Patient was found to be afebrile, heart rate 61, blood pressure 139/69, pulse ox 100% on room air. WBC 10.4, hemoglobin 10.3, platelet count 250. Sodium 135, potassium 4.5, chloride 94, CO2 28, BUN 29 creatinine 7.49. Blood glucose running between 124 and 173. Total bilirubin 1.8. Magnesium 1.9. Liver function tests normal. Coronavirus not detected. Wound culture and blood culture have been obtained. Ultrasound of the right lower extremity negative for DVT. Right foot x-ray should revealed soft tissue wound first digit. Suspect early osteomyelitis distal phalanx first digit right foot. Patient has been seen by Dr. Dominguez with recommendations for local wound care, cultures, Invanz dosed by pharmacy. Patient has been admitted to the [facility] floor. 08/22: Patient has been seen by Dr. Dominguez and he recommends surgical debridement, consult added for Dr. Aleman as patient was recommended to follow-up with Dr. Aleman from the wound center but failed to do so. Consult has been admitted for wound care team. Patient underwent hemodialysis yesterday, none today. Patient has been afebrile, heart rate 72, blood pressure 155/76, pulse ox 97% on room air. Repeat blood work reveals sodium 134, potassium 4.6, chloride 95, CO2 20, BUN 28 creatinine 6.68. Blood sugars are running between 117 and 135. Repeat blood work will be ordered for tomorrow. social work is following for discharge planning which will be [facility] once patient is stable. 08/23: Patient has been seen by vascular surgery and is scheduled for debridement today in the OR. Patient is also scheduled for hemodialysis treatment today. He has been afebrile, heart rate 53, blood pressure 129/64, pulse ox 90% on room air. WBC 9.1, hemoglobin 9.7, platelet count 276. Blood sugars are running between 88 and 177. Wound culture is showing gram-negative bacilli. Patient has been continued on Invanz. Anticipate probable discharge on Thursday. 08/24: Patient underwent a surgical debridement yesterday. Right great toe ulceration measures 1.5 x 1.5 x 0.3 to bone, and the lateral foot ulceration measures 8.7 x 4.0 x 0.3 to bone. Patient more than likely will need a right fifth toe amputation possibly great toe amputation versus a trans-met amputation. He is noncompliant with offloading. He is currently utilizing Santyl to the wounds. He does have a walker in his room. Patient will continue on Invanz. Anticipate probable discharge on Thursday to [facility]. 08/25: Patient is extremely upset this morning feeling that the doctors are not doing anything for him only coming in and leaving. He is currently on Invanz per infectious disease, utilizing Santyl to the ulcerations of the right foot. A surgical shoe is in his room which should be utilized for ambulation. Apply foam to the lateral aspect of the right foot and then the shoe. Increase insulin to 6 units twice a day related to elevated glucose levels. Patient is also complaining of inability to sleep. Melatonin added. 08/26, patient has culture showing ESBL E. coli, Enterobacter cloacae, Enterococcus faecalis, from the diabetic foot ulcer, was seen by Dr. Dominguez for which recommendation is for ERTAPENEM 0.5 mg IV daily, to infusions, however patient has hemodialysis, and most likely would have a hard time getting a PICC line ordered. Dr. Galo is going to finalize dosing of the Kermit tobacco, for dialysis infusion treatments if able. Since undergoing dialysis today, no new complaints including nausea vomiting diarrhea. Plan for subacute rehab, to [facility], once antibiotic is finalized 08/27: Dr. Dominguez has recommended vancomycin 1 g with each dialysis treatment to avoid PICC line insertion. Patient is maintained on dialysis Thursday. Family have determined that patient is not to go to [place] and they are requesting [facility] and attempts are being made to set up transportation to the [facility]. Anticipate that transportation issue will be resolved the patient can be discharged [facility] tomorrow. Repeat blood work re veals hemoglobin 9.6, sodium 133, chloride 94, BUN 39 and creatinine 5.78. Her blood glucose running between 70 and 159. 08/28: Dr. Dominguez is recommended Invanz for a 6 week course which will require PICC line placement which is been cleared by nephrology. Patient is undergoing hemodialysis this morning. He has been afebrile, heart rate in the 50s and 60s, blood pressure 126/70, pulse ox 97% on room air. Blood sugars are running between 123 and 159. Charge will be delayed waiting for PICC line placement due to patient being on Xarelto, patient received Xarelto this morning. Xarelto placed on hold. 08/29: He should have PICC line placed yesterday and patient will continued on Xarelto. No new complaints from the patient. No change in his antibiotic plan. He has a chair time set up in [place] for Thursday and transportation arrangements have artery been made by [facility]. Patient will be discharged [facility] today in stable condition. DISCHARGE DIAGNOSES 1. Acute on chronic diabetic and peripheral vascular disease ulcers to the right foot. Status post surgical debridement to right great toe and right lateral foot. 2. End-stage renal disease on hemodialysis Thursday schedule. 3. Diabetes mellitus type 2 insulin requiring. 4. Hyperlipidemia. 5. Chronic atrial fibrillation. 6. Benign prostatic hypertrophy with urinary retention. 7. Hypothyroidism. 8. Hypertension. 8. Glaucoma. 9. Insomnia. DISCHARGE PLAN Subacute rehab at [facility] Impression and plan of care have been directed as dictated by the signing physician. Carmina Convery nurse practitioner acting as scribe for signing physician. Patient Condition at Discharge: Stable Plan - Discharge Summary Discharge Rx Participant: No New Discharge Prescriptions: New Ertapenem [INVanz] 0.5 gm IVPB Q24H #40 each Melatonin 5 mg PO HS tablet HYDROcodone/APAP 7.5-325MG [[place] 7.5-325] 1 each PO Q6HR PRN #12 tab PRN Reason: Pain INSULIN ASPART (NovoLOG) [NovoLOG (formulary)] 0 unit SQ ACHS ml Acetaminophen Tab [Tylenol] 650 mg PO Q6HR PRN tab PRN Reason: Mild Pain Or Fever > 100.5 Continue Folic Acid 0.4 mg PO DAILY Calcium Acetate [PhosLo] 667 mg PO AC-TID hydrALAZINE HCL [Apresoline] 25 mg PO TID tab Tamsulosin [Flomax] 0.4 mg PO DAILY #30 cap.er.24h Furosemide [Lasix] 80 mg PO BID@0900,1600 tab Atorvastatin [Lipitor] 40 mg PO HS tab Metoprolol Tartrate [Lopressor] 25 mg PO BID tab Pantoprazole [Protonix] 40 mg PO DAILY@0730 tablet. Levothyroxine Sodium [Synthroid] 150 mcg PO DAILY@0630 tab Insuln Asp Prt/Insulin Aspart [NovoLOG MIX 70-30 VIAL] 4 unit SQ AC-BID #1 vial Collagenase [Santyl] 1 applic TOPICAL DAILY Midodrine [ProAmatine] 5 mg PO BID PRN PRN Reason: DIALYSIS DAYS Rivaroxaban [Xarelto] 15 mg PO DAILY Latanoprost [Xalatan 0.005%] 1 drop BOTH EYES HS Dakins 1 applic TOPICAL DAILY Fenofibrate Nanocrystallized [Fenofibrate] 145 mg PO DAILY Discontinued carvediloL [Coreg] 3.125 mg PO BID Bumetanide [Bumex] 2 mg PO WESA@0900 Bumetanide [Bumex] 1 mg PO WESA@2100 Discharge Medication List Folic Acid 0.4 mg PO DAILY 11/04/19 [History] Calcium Acetate [PhosLo] 667 mg PO AC-TID 08/04/20 [History] Atorvastatin [Lipitor] 40 mg PO HS tab 08/07/20 [Rx] Furosemide [Lasix] 80 mg PO BID@0900,1600 tab 09/08/20 [Rx] Insuln Asp Prt/Insulin Aspart [NovoLOG MIX 70-30 VIAL] 4 unit SQ AC-BID #1 vial 08/07/20 [Rx] Levothyroxine Sodium [Synthroid] 150 mcg PO DAILY@0630 tab 08/07/20 [Rx] Metoprolol Tartrate [Lopressor] 25 mg PO BID tab 08/07/20 [Rx] Pantoprazole [Protonix] 40 mg PO DAILY@0730 tablet.dr 08/07/20 [Rx] Tamsulosin [Flomax] 0.4 mg PO DAILY #30 cap.er.24h 08/07/20 [Rx] hydrALAZINE HCL [Apresoline] 25 mg PO TID tab 08/07/20 [Rx] Collagenase [Santyl] 1 applic TOPICAL DAILY 08/20/21 [History] Dakins 1 applic TOPICAL DAILY 08/20/21 [History] Fenofibrate Nanocrystallized [Fenofibrate] 145 mg PO DAILY 08/20/21 [History] Latanoprost [Xalatan 0.005%] 1 drop BOTH EYES HS 08/20/21 [History] Midodrine [ProAmatine] 5 mg PO BID PRN 08/20/21 [History] Rivaroxaban [Xarelto] 15 mg PO DAILY 08/20/21 [History] Acetaminophen Tab [Tylenol] 650 mg PO Q6HR PRN tab 08/28/21 [Rx] Ertapenem [INVanz] 0.5 gm IVPB Q24H #40 each 08/28/21 [Rx] HYDROcodone/APAP 7.5-325MG [[place] 7.5-325] 1 each PO Q6HR PRN #12 tab 08/28/21 [Rx] INSULIN ASPART (NovoLOG) [NovoLOG (formulary)] 0 unit SQ ACHS ml 08/28/21 [Rx] Melatonin 5 mg PO HS tablet 08/28/21 [Rx] Follow up Appointment(s)/Referral(s): Lis Mota DO [STAFF PHYSICIAN] - 09/11/21 11:00 am [facility] [NON-STAFF] - 1 Week Harris Vidales DO [STAFF PHYSICIAN] - 1 Week (has appointment 08/28) Gino,Rudy, MD [Primary Care Provider] - 1 Week (Thursday for usual Wound Care appointment) Discharge Disposition: TRANSFER TO SNF/ECF
--- NOTE | 2021-08-28 11:17 | P.PN ---
Subjective Progress Note Date: 08/28/21 This is a 76-year-old male patient of Dr. Vidales with past medical history of end-stage renal disease on hemodialysis Thursday through left arm fistula, diabetes mellitus type 2, hypertension, hyperlipidemia, hypothyroidism, anemia of chronic disease, remote history of tobacco use. Rosalia valverde is a long-term patient at the wound healing Center with chronic wounds to the right foot, last visit was on 08/15 and patient was referred to vascular surgeon for moderate bilateral some oral popliteal disease. Patient has home care nurse in place. He states that his home care nurse advised him to come in the hospital for further evaluation. Patient was found to be afebrile, heart rate 61, blood pressure 139/69, pulse ox 100% on room air. WBC 10.4, hemoglobin 10.3, platelet count 250. Sodium 135, potassium 4.5, chloride 94, CO2 28, BUN 29 creatinine 7.49. Blood glucose running between 124 and 173. Total bilirubin 1.8. Magnesium 1.9. Liver function tests normal. Coronavirus not detected. Wound culture and blood culture have been obtained. Ultrasound of the right lower extremity negative for DVT. Right foot x-ray should revealed soft tissue wound first digit. Suspect early osteomyelitis distal phalanx first digit right foot. Patient has been seen by Dr. Dominguez with recommendations for local wound care, cultures, Invanz dosed by pharmacy. Patient has been admitted to the [facility] floor. 08/22: Patient has been seen by Dr. Dominguez and he recommends surgical debridement, consult added for Dr. Aleman as patient was recommended to follow-up with Dr. Aleman from the wound center but failed to do so. Consult has been admitted for wound care team. Patient underwent hemodialysis yesterday, none today. Patient has been afebrile, heart rate 72, blood pressure 155/76, pulse ox 97% on room air. Repeat blood work reveals sodium 134, potassium 4.6, chloride 95, CO2 20, BUN 28 creatinine 6.68. Blood sugars are running between 117 and 135. Repeat blood work will be ordered for tomorrow. social work is following for discharge planning which will be [facility] once patient is stable. 08/23: Patient has been seen by vascular surgery and is scheduled for debridement today in the OR. Patient is also scheduled for hemodialysis treatment today. He has been afebrile, heart rate 53, blood pressure 129/64, pulse ox 90% on room air. WBC 9.1, hemoglobin 9.7, platelet count 276. Blood sugars are running between 88 and 177. Wound culture is showing gram-negative bacilli. Patient has been continued on Invanz. Anticipate probable discharge on Thursday. 08/24: Patient underwent a surgical debridement yesterday. Right great toe ulceration measures 1.5 x 1.5 x 0.3 to bone, and the lateral foot ulceration measures 8.7 x 4.0 x 0.3 to bone. Patient more than likely will need a right fifth toe amputation possibly great toe amputation versus a trans-met ampu tation. He is noncompliant with offloading. He is currently utilizing Santyl to the wounds. He does have a walker in his room. Patient will continue on Invanz. Anticipate probable discharge on Thursday to [facility]. 08/25: Patient is extremely upset this morning feeling that the doctors are not doing anything for him only coming in and leaving. He is currently on Invanz per infectious disease, utilizing Santyl to the ulcerations of the right foot. A surgical shoe is in his room which should be utilized for ambulation. Apply foam to the lateral aspect of the right foot and then the shoe. Increase insulin to 6 units twice a day related to elevated glucose levels. Patient is also complaining of inability to sleep. Melatonin added. 08/26, patient has culture showing ESBL E. coli, Enterobacter cloacae, Enterococcus faecalis, from the diabetic foot ulcer, was seen by Dr. Dominguez for which recommendation is for ERTAPENEM 0.5 mg IV daily, to infusions, however patient has hemodialysis, and most likely would have a hard time getting a PICC line ordered. Dr. Galo is going to finalize dosing of the Kermit tobacco, for dialysis infusion treatments if able. Since undergoing dialysis today, no new complaints including nausea vomiting diarrhea. Plan for subacute rehab, to [facility], once antibiotic is finalized 08/27: Dr. Dominguez has recommended vancomycin 1 g with each dialysis treatment to avoid PICC line insertion. Patient is maintained on dialysis Thursday. Family have determined that patient is not to go to [place] and they are requesting [place] and attempts are being made to set up transportation to the [facility]. Anticipate that transportation issue will be resolved the patient can be discharged [facility] tomorrow. Repeat blood work reveals hemoglobin 9.6, sodium 133, chloride 94, BUN 39 and creatinine 5.78. Her blood glucose running between 70 and 159. 08/28: Dr. Dominguez is recommended Invanz for a 6 week course which will require PICC line placement which is been cleared by nephrology. Patient is undergoing hemodialysis this morning. He has been afebrile, heart rate in the 50s and 60s, blood pressure 126/70, pulse ox 97% on room air. Blood sugars are running between 123 and 159. Charge will be delayed waiting for PICC line placement due to patient being on Xarelto, patient received Xarelto this morning. Xarelto placed on hold. REVIEW OF SYSTEMS Constitutional: No fever, no chills, no night sweats. No weight change. No weakness, fatigue or lethargy. No daytime sleepiness. EENT: No headache. No dizziness. No nasal drainage or congestion. No epistaxis. No sore throat. Lungs: No shortness of breath, cough, no sputum production. No wheezing. Cardiovascular: No chest pain, no lower extremity edema. No palpitations. No paroxysmal nocturnal dyspnea. No orthopnea. No lightheadedness or dizziness. No syncopal episodes. Abdominal: Denies abdominal pain. No nausea, vomiting. No diarrhea. No constipation. No bloody or tarry stools. No loss of appetite. Genitourinary: No dysuria, increased frequency, urgency. No urinary retention. Musculoskeletal: No myalgias. No muscle weakness, no gait dysfunction, no frequent falls. No back pain. No neck pain. Integumentary: Reported wounds, no lesions. No rash or pruritus. No unusual bruising. No change in hair or nails. Neurologic: No aphasia. No facial droop. No change in mentation. No head injury. No headache. No paralysis. No paresthesia. Psychiatric: No depression. No anxiety. No mood swings. Endocrine: Noted abnormal blood sugars. No weight change. PHYSICAL EXAMINATION Gen: This is a 76-year-old black male resting in bed and appears to be in no acute distress. Patient is undergoing hemodialysis. HEENT: Head is atraumatic, normocephalic. Pupils equal, round. Sclerae is anicteric. NECK: Supple. No JVD. No lymphadenopathy. No thyromegaly. LUNGS: Clear to auscultation. No wheezes or rhonchi. No intercostal retractions. HEART: Irregular rate and rhythm. Systolic murmur. ABDOMEN: Soft. Bowel sounds are present. No masses. No tenderness. EXTREMITIES: No pedal edema. No calf tenderness. Dressing in place to the right foot. Fistula left upper arm. NEUROLOGICAL: Patient is awake, alert and oriented x3. Cranial nerves 2 through 12 are grossly intact. ASSESSMENT AND PLAN 1. Acute on chronic diabetic and peripheral vascular disease ulcers to the right foot with worsening condition. Continue ertapenem dosed by pharmacy, consult with Dr. Dominguez appreciated. Wound culture and blood cultures in progress. Consult to vascular surgery appreciated. Status post surgical debridement to right great toe and right lateral foot. Continue to utilize Santyl for dressing changes and foam for protection to the lateral aspect of right foot. Patient is nonweightbearing to the right forefoot. Dr. Dominguez is recommending ertapenem 500 mg IV piggyback every 24 hours for 6 week course, PICC line ordered, Xarelto placed on hold. 2. End-stage renal disease on hemodialysis Thursday schedule. Consult with Dr. Oropeza, continue Lasix 80 mg twice daily. 3. Diabetes mellitus type 2 insulin requiring. Increased NovoLog Mix 70/30 6 units twice daily, NovoLog scale before meals and at bedtime, hemoglobin A1c 6.5. 4. Hyperlipidemia. Continue atorvastatin 40 mg at bedtime 5. Chronic atrial fibrillation. Continue Lopressor 25 mg twice daily, Xarelto 15 mg daily. 6. Benign prostatic hypertrophy with urinary retention. Patient self caths twice daily which will be continued here. Continue Flomax 0.4 mg daily. 7. Hypothyroidism. Continue levothyroxine 150 g daily. 8. Hypertension. Continue hydralazine 25 mg 3 times daily. Continue midodrine 5 mg twice daily on dialysis days. 8. Glaucoma. Continue eye drops. 9. Insomnia. Melatonin 5 mg by mouth at bedtime 10. DVT prophylaxis. Xarelto. 11. GI prophylaxis. Protonix. DISCHARGE PLAN Subacute rehab at [facility] later this week Impression and plan of care have been directed as dictated by the jasoning virginie allison. Carmina Collins nurse practitioner acting as scribe for signing physician. Objective - Vital Signs Vital signs: Vital Signs Temp 97.6 F 08/28/21 08:00 Pulse 57 L 08/28/21 08:00 Resp 16 08/28/21 08:00 BP 126/70 08/28/21 08:00 Pulse Ox 97 08/28/21 08:00 Intake & Output 08/27/21 08/28/21 08/28/21 18:59 06:59 18:59 Intake Total 500 350 Balance 500 350 Intake: Oral 500 350 Other: Voiding Method Self-Catheterization Bedpan Self-Catheterization Self-Catheterization - Labs CBC & Chem 7: 08/27/21 05:34 08/27/21 05:34 Labs: Abnormal Lab Results - Last 24 Hours (Table) 08/27/21 08/27/21 08/27/21 Range/Units 06:15 11:35 16:48 POC Glucose (mg/dL) 159 H 123 H (75-99) mg/dL Hep Bs Antigen ConfNotVal H 08/27/21 08/28/21 Range/Units 21:01 06:57 POC Glucose (mg/dL) 128 H 139 H (75-99) mg/dL Hep Bs Antigen
--- NOTE | 2021-08-28 11:18 | P.PN ---
Subjective Patient is seen in follow-up for end-stage renal disease. He is maintained on hemodialysis on Thursday schedule. Being treated for right foot wound. No chest pain or shortness of breath. No vomiting or diarrhea. No active complaints at this time. Scheduled for dialysis today. Vital signs are stable. General: The patient appeared well nourished and normally developed. HEENT: Head exam is unremarkable. LUNGS: Breath sounds decreased. HEART: Rate and Rhythm are regular. ABDOMEN: Soft, no distention. EXTREMITITES: Trace edema. No drainage. Objective - Vital Signs Vital signs: Vital Signs Temp 97.6 F 08/28/21 08:00 Pulse 57 L 08/28/21 08:00 Resp 16 08/28/21 08:00 BP 126/70 08/28/21 08:00 Pulse Ox 97 08/28/21 08:00 Intake & Output 08/27/21 08/28/21 08/28/21 18:59 06:59 18:59 Intake Total 500 350 Balance 500 350 Intake: Oral 500 350 Other: Voiding Method Self-Catheterization Bedpan Self-Catheterization Self-Catheterization - Labs CBC & Chem 7: 08/27/21 05:34 08/27/21 05:34 Labs: Abnormal Lab Results - Last 24 Hours (Table) 08/27/21 08/27/21 08/27/21 Range/Units 06:15 11:35 16:48 POC Glucose (mg/dL) 159 H 123 H (75-99) mg/dL Hep Bs Antigen ConfNotVal H 08/27/21 08/28/21 Range/Units 21:01 06:57 POC Glucose (mg/dL) 128 H 139 H (75-99) mg/dL Hep Bs Antigen Assessment and Plan Plan: Assessment: 1. End-stage renal disease maintained on hemodialysis on Thursday schedule. 2. Right foot wound status post debridement. On antibiotics. 3. Chronic kidney disease mineral bone disease maintained on PhosLo. 4. Hypertension with chronic disease. Stable. 5. Diabetes mellitus. 6. Anemia of chronic kidney disease. On Aranesp. Plan: Hemodialysis today.
[2021-08-28 11:34] LABS: Glucose,Whole Blood 120 mg/dL (75-99)
[2021-08-28] MEDS ORDERED: LIDOCAINE 1% INJ 10MG/ML (20 ML MDV) ONE (14:20)
[2021-08-28] MEDS ORDERED: LIDOCAINE 1% INJ 10MG/ML (20 ML MDV) SQ ONE (14:47)
[2021-08-28] MEDS: hydrALAZINE HCL 25 MG TAB PO SCH ×3 (15:24→20:56)
[2021-08-28] MEDS: METOPROLOL TARTRATE 25 MG TAB PO SCH ×2 (15:34→20:56)
--- NOTE | 2021-08-28 15:42 | PN ---
PROGRESS NOTE DATE OF SERVICE: 08/28/2021 REASON FOR FOLLOWUP: Right diabetic foot infection with underlying osteomyelitis. INTERVAL HISTORY: The patient is afebrile. The patient is breathing comfortably. Denies chest pain, shortness of breath or cough. No vomiting, abdominal pain or diarrhea. PHYSICAL EXAMINATION: Blood pressure is /55, pulse of 64, temperature 97.6. He is 99% on room air. GENERAL DESCRIPTION: General description is an elderly male lying in bed in no distress. RESPIRATORY SYSTEM: Unlabored breathing. Clear to auscultation anteriorly. HEART: S1, S2. Regular rate and rhythm. ABDOMEN: Soft. No tenderness. Right foot is currently dressed. No obvious drainage on the dressing. DIAGNOSTIC IMPRESSION AND PLAN: Patient with right diabetic foot ulcer with underlying osteomyelitis. Culture positive for ESBL E coli, Enterococcus faecalis. Plan is for Invanz 500 mg daily for 6 weeks, for which a PICC line will be placed dialysis . Continue supportive care. MMODL / IJN: [id number] /
--- NOTE | 2021-08-28 15:48 | IR ---
EXAMINATION TYPE: IR cvc insert >=5 years and a minute right upper extremity angiogram DATE OF EXAM: 08/28/2021 COMPARISON: NONE CLINICAL HISTORY: Infection Needs long-term intravenous access for antibiotics. PROCEDURE: Hand hygiene obtained with soap and water and alcohol-based hand rub. After informed consent, the skin overlying the right basilic vein was localized with ultrasound and n oted to be compressible and patent. An ultrasound image was obtained and submitted on the patient's chart. The overlying skin was prepped and draped and Lidocaine was used for local anesthesia. A ski n tahira was made with a scalpel. Access was gained to the vein under ultrasound guidance with a 21 ga uge needle and a 0.018 inch wire was advanced and could not be advanced to the superior vena cava. A ccess site was dilated with Peel-Away sheath and catheter tailored to the appropriate length and adva nced such that the distal tip is at the right subclavian vein level, gentle hand injection of contras t material was performed at this level. Spot image was obtained verifying placement. Catheter was f ixed to the skin and a sterile dressing was placed following hemostasis. Catheter was aspirated and flushed with saline. Patient was discharged in stable condition without complication.Maximal barrier technique is utilized. Ultrasound image is documented on the chart. Ultrasound used with sterile te chnique. Fluoro time and fluoroscopic images submitted to document procedure: 1.4 minutes fluoroscopy time sup plied, 258 intraoperative images Of the right subclavian vein is patent. The right internal jugular vein is patent. Superior vena cava shows an occlusion on the right, short segment of the innominate vein appears patent. IMPRESSION: STATUS POST ULTRASOUND AND FLUOROSCOPIC GUIDED PICC LINE PLACEMENT, READY FOR USE. THIS PROCEDURE WAS PERFORMED BY THE UNDERSIGNED. Catheter tip in the subclavian vein as described. There i s no contrast material coursing from the subclavian vein via the innominate vein into the superior ve na cava.
[2021-08-28 16:37] LABS: Glucose,Whole Blood 82 mg/dL (75-99)
[2021-08-28 17:17] LABS: Hepatitis B Surface Antibody Reactive (Nonreactive)
[2021-08-28 20:42] LABS: Glucose,Whole Blood 72 mg/dL (75-99)
[2021-08-28] MEDS: ATORVASTATIN 40 MG TAB PO SCH (20:54)
[2021-08-28] MEDS: MELATONIN 5 MG TABLET PO SCH (20:54)
[2021-08-28] MEDS: LATANOPROST 0.005% OPHTH DROPS 2.5 ML BTL BOTH EYES SCH (20:55)
[2021-08-28 21:21] LABS: Glucose,Whole Blood 61 mg/dL (75-99)
[2021-08-28 21:41] LABS: Glucose,Whole Blood 65 mg/dL (75-99)
[2021-08-28] MEDS: HYDROcodone/APAP 7.5-325MG 1 EACH TAB PO PRN (21:42)
[2021-08-28 22:04] LABS: Glucose,Whole Blood 86 mg/dL (75-99)
[2021-08-29] MEDS: LEVOTHYROXINE 75 MCG TAB PO SCH (06:04)
[2021-08-29 07:22] LABS: Glucose,Whole Blood 389 mg/dL (75-99)
[2021-08-29] MEDS: CALCIUM ACETATE 667 MG TAB PO SCH ×2 (08:22→12:24)
[2021-08-29] MEDS: FENOFIBRATE 160 MG TAB PO SCH (08:28)
[2021-08-29] MEDS: METOPROLOL TARTRATE 25 MG TAB PO SCH (08:29)
[2021-08-29] MEDS: TAMSULOSIN 0.4 MG CAP.ER.24H PO SCH (08:29)
[2021-08-29] MEDS: FUROSEMIDE 80 MG TAB PO SCH (08:29)
[2021-08-29] MEDS: hydrALAZINE HCL 25 MG TAB PO SCH (08:29)
[2021-08-29] MEDS: INSULIN ASPART (NovoLOG) 100 UNIT/ML VIAL SQ SCH ×2 (08:29→12:22)
[2021-08-29] MEDS: PANTOPRAZOLE 40 MG TABLET PO SCH (08:29)
[2021-08-29] MEDS: INSULN ASP PRT/INSULIN ASPART 100 UNIT/ML 10 ML VIAL SQ SCH (08:30)
[2021-08-29] MEDS: COLLAGENASE 250 UNIT/GM OINTMENT 30 GM TUBE TOPICAL SCH (08:31)
[2021-08-29] MEDS: HYDROcodone/APAP 7.5-325MG 1 EACH TAB PO PRN (08:31)
[2021-08-29 09:30] VITALS: BP 172/64; PULSE 92; RESP 18; TEMP 98.1
[2021-08-29 10:14] LABS: Hepatitis B Surface AB- Quant 20
--- NOTE | 2021-08-29 11:23 | P.PN ---
Subjective Patient is seen in follow-up for end-stage renal disease. He is maintained on hemodialysis on Thursday schedule. Being treated for right foot wound. No chest pain or shortness of breath. No vomiting or diarrhea. No active complaints at this time. No problems with dialysis yesterday. Vital signs are stable. General: The patient appeared well nourished and normally developed. HEENT: Head exam is unremarkable. LUNGS: Breath sounds decreased. HEART: Rate and Rhythm are regular. ABDOMEN: Soft, no distention. EXTREMITITES: Trace edema. No drainage. Objective - Vital Signs Vital signs: Vital Signs Temp 98.1 F 08/29/21 08:00 Pulse 92 08/29/21 08:00 Resp 18 08/29/21 08:00 BP 172/64 08/29/21 08:00 Pulse Ox 99 08/29/21 08:00 Intake & Output 08/28/21 08/29/21 08/29/21 18:59 06:59 18:59 Intake Total 300 Output Total 2300 3000 Balance -2000 -3000 Intake: Hemodialysis 300 Output: Hemodialysis 2300 3000 Other: Voiding Method Self-Catheterization Self-Catheterization Self-Catheterization # Voids 0 0 # Bowel Movements 1 - Labs CBC & Chem 7: 08/27/21 05:34 08/27/21 05:34 Labs: Abnormal Lab Results - Last 24 Hours (Table) 08/27/21 08/28/21 08/28/21 Range/Units 06:15 11:26 20:38 POC Glucose (mg/dL) 120 H 72 L (75-99) mg/dL Hep Bs Antibody Reactive A (Nonreactive) 08/28/21 08/28/21 08/29/21 Range/Units 21:20 21:41 07:07 POC Glucose (mg/dL) 61 L 65 L 389 H (75-99) mg/dL Hep Bs Antibody (Nonreactive) Assessment and Plan Plan: Assessment: 1. End-stage renal disease maintained on hemodialysis on Thursday schedule. 2. Right foot wound status post debridement. On antibiotics. 3. Chronic kidney disease mineral bone disease maintained on PhosLo. 4. Hypertension with chronic disease. BP labile. 5. Diabetes mellitus. 6. Anemia of chronic kidney disease. On Aranesp. Plan: Hemodialysis tomorrow.
[2021-08-29] MEDS ORDERED: RIVAROXABAN 15 MG TAB PO STA (11:29)
[2021-08-29 11:32] LABS: Glucose,Whole Blood 99 mg/dL (75-99)
[2021-08-30] MEDS ORDERED: RIVAROXABAN 15 MG TAB PO SCH (09:00)
== END 2021-08-29 01:00 | DRG 623 ==
LOC: EC 12:12 → 5NMEDONC 16:09 → 4SSUR 21:21
PROVIDERS: ADMIT Internal Medicine Geriatric Medicine; ATTEND Internal Medicine Geriatric Medicine
PROC: 5A1D70Z Performance of Urinary Filtration, Intermittent, Less than 6 Hours Per Day (ICD-10-PCS; 2021-08-20)
PROC: 0JBQ0ZZ Excision of Right Foot Subcutaneous Tissue and Fascia, Open Approach (ICD-10-PCS; principal; 2021-08-23 13:20)
PROC: 05H533Z Insertion of Infusion Device into Right Subclavian Vein, Percutaneous Approach (ICD-10-PCS; 2021-08-28)
DX: E11.69 Type 2 diabetes mellitus with other specified complication (principal); E11.52 Type 2 diabetes mellitus with diabetic peripheral angiopathy with gangrene; I48.20 Chronic atrial fibrillation, unspecified; M86.9 Osteomyelitis, unspecified; L03.90 Cellulitis, unspecified; I12.0 Hypertensive chronic kidney disease with stage 5 chronic kidney disease or end stage renal disease; Z16.12 Extended spectrum beta lactamase (ESBL) resistance; E11.621 Type 2 diabetes mellitus with foot ulcer; E11.628 Type 2 diabetes mellitus with other skin complications; D63.1 Anemia in chronic kidney disease; E11.22 Type 2 diabetes mellitus with diabetic chronic kidney disease; B35.9 Dermatophytosis, unspecified; B96.20 Unspecified Escherichia coli [E. coli] as the cause of diseases classified elsewhere; E03.9 Hypothyroidism, unspecified; E11.65 Type 2 diabetes mellitus with hyperglycemia; E78.5 Hyperlipidemia, unspecified; I82.290 Acute embolism and thrombosis of other thoracic veins; Z20.822 Contact with and (suspected) exposure to COVID-19; G47.00 Insomnia, unspecified; H40.9 Unspecified glaucoma; L97.514 Non-pressure chronic ulcer of other part of right foot with necrosis of bone; M89.8X9 Other specified disorders of bone, unspecified site; N18.6 End stage renal disease; N40.1 Benign prostatic hyperplasia with lower urinary tract symptoms; R33.8 Other retention of urine; Z79.01 Long term (current) use of anticoagulants; Z79.4 Long term (current) use of insulin; Z79.890 Hormone replacement therapy; Z79.899 Other long term (current) drug therapy; Z82.49 Family history of ischemic heart disease and other diseases of the circulatory system; Z83.3 Family history of diabetes mellitus; Z87.891 Personal history of nicotine dependence; Z91.19 Patient's noncompliance with other medical treatment and regimen; Z99.2 Dependence on renal dialysis
CPT/HCPCS: 36415; 36573; 80048; 80053; 83036; 83605; 83735; 84100; 85025; 85027; 86706; 87040; 87070; 87075; 87077; 87186; 87205; 87340; 87635; 90935; 96365; 96368; 99285

== ENCOUNTER → 2021-09-10 | Day surgery (SDC) | payer MEDICARE ==
[~2021-09-10] MED LIST: LIDOCAINE 1% INJ 10MG/ML (20 ML MDV) SQ ONE
[2021-09-10 11:20] VITALS: BP 113/54; PULSE 64; RESP 18; TEMP 98
--- NOTE | 2021-09-10 12:48 | IR ---
EXAMINATION TYPE: IR venogram upper ext RT, aborted PICC line DATE OF EXAM: 09/10/2021 COMPARISON: NONE CLINICAL HISTORY: Needs long-term intravenous access for antibiotics. PROCEDURE: Hand hygiene obtained with soap and water and alcohol-based hand rub. After informed consent, the skin overlying the right basilic vein was localized with ultrasound and n oted to be compressible and patent. An ultrasound image was obtained and submitted on the patient's chart. The overlying skin was prepped and draped and Lidocaine was used for local anesthesia. A ski n tahira was made with a scalpel. Access was gained to the vein under ultrasound guidance with a 21 ga uge needle and a 0.018 inch wire was advanced could not be advanced to the level of the cavoatrial ju nction. Access site was dilated with Peel-Away sheath and catheter tailored to the appropriate lengt h and advanced such that the distal tip is at the right innominate vein level. Gentle hand-injection of nonionic radiographic contrast material was performed approximately 6 cc. Based on the findings a catheter was removed and hemostasis achieved by manual compression. No immediate complication. Daiana l barrier technique is utilized. Ultrasound image is documented on the chart. Ultrasound used with s terile technique. FINDINGS: Following injection of contrast material the innominate vein shows a high degree narrowing with possible collateralization into a patent superior vena cava. Following discussion with the refer ring clinician and based on patient's needs, it is decided to abort PICC line placement. Catheter was removed. Fluoro time and fluoroscopic images submitted to document procedure: 2.1 minutes fluoroscopy time, 20 0 intraoperative C-arm images IMPRESSION: Central venogram as described. Patient is not a candidate for PICC line as noted.
== END ==
LOC: CATHCVL 10:53
PROVIDERS: ATTEND Radiology Diagnostic Radiology
DX: Z45.2 Encounter for adjustment and management of vascular access device (principal)
CPT/HCPCS: 36573; C1751; C1769; J2001

== ENCOUNTER 2021-10-01 06:49 | Day surgery (SDC) | payer MEDICARE ==
[2021-09-27 16:48] VITALS: BMI 31.6
[~2021-10-01 06:49] MED LIST changes: -LIDOCAINE 1% INJ 10MG/ML (20 ML MDV) SQ ONE; +SODIUM CHLORIDE 0.9% 1,000 ML in EMPTY BAG 1 BAG IV ONE
[2021-10-01 07:26] VITALS: RESP 18; TEMP 98.2
[2021-10-01 07:29] LABS: Glucose,Whole Blood 71 mg/dL (75-99)
[2021-10-01] MEDS ORDERED: HYDROmorphone 1 MG/ML 1 ML SYRINGE IVP STA (08:19)
[2021-10-01] MEDS ORDERED: LIDOCAINE 1% INJ 10MG/ML (20 ML MDV) ONE (09:28)
[2021-10-01] MEDS ORDERED: LIDOCAINE 1% INJ 10MG/ML (20 ML MDV) SQ ONE (09:55)
[2021-10-01 10:04] LABS: Glucose,Whole Blood 59 mg/dL (75-99)
[2021-10-01] MEDS ORDERED: DEXTROSE 50% SYRINGE 50 ML IVP ONE (10:05)
[2021-10-01 10:15] LABS: Glucose,Whole Blood 108 mg/dL (75-99)
[2021-10-01] MEDS ORDERED: HEPARIN SODIUM 1,000 UN/ML (10ML VL) ONE (10:20)
[2021-10-01] MEDS ORDERED: HEPARIN SODIUM 1,000 UN/ML (10ML VL) IV ONE (10:21)
[2021-10-01] MEDS ORDERED: MIDAZOLAM 2 MG/2 ML VIAL IV ONE (10:26)
[2021-10-01] MEDS ORDERED: fentaNYL (PF) 50 MCG/ML 2 ML AMP ONE (10:47)
[2021-10-01] MEDS ORDERED: fentaNYL (PF) 50 MCG/ML 2 ML AMP IV ONE (10:48)
[2021-10-01] MEDS ORDERED: IOPAMIDOL-370 100ML BTL INJ ONE ×2 (11:20)
[2021-10-01] MEDS ORDERED: HYDROcodone/APAP 5-325MG 1 EACH TAB PO PRN (11:28)
[2021-10-01] MEDS ORDERED: MIDODRINE 5 MG TAB PO PRN (11:31)
[2021-10-01] MEDS ORDERED: NA PHOS,M-B/NA PHOS,DI-BA 133 ML ENEMA RECTAL PRN (11:31)
[2021-10-01] MEDS ORDERED: HYDROcodone/APAP 7.5-325MG 1 EACH TAB PO PRN (11:31)
[2021-10-01] MEDS ORDERED: ACETAMINOPHEN TAB 325 MG TAB PO PRN (11:31)
[2021-10-01] MEDS ORDERED: MAGNESIUM HYDROXIDE 2,400 MG/10 ML CUP PO PRN (11:31)
[2021-10-01] MEDS ORDERED: bisacodyL 10 MG SUPP RECTAL PRN (11:31)
[2021-10-01] MEDS ORDERED: ERTAPENEM 1 GM VIAL IVPB SCH (11:45)
--- NOTE | 2021-10-01 11:52 | P.OP ---
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 Directional atherectomy of the right superficial femoral artery, popliteal artery and tibioperoneal trunk with Hawk one device. Percutaneous transluminal balloon angioplasty of the distal SFA, popliteal and tibial peroneal trunk. Surgeon: Ash Anesthesia: Moderate sedation times 93 minutes Estimated blood loss: 5 mL Complications: None Condition: Stable Findings: Aorta: Patent without any significant stenosis, atherosclerotic disease noted, bilateral renal arteries are patent without significant stenosis Iliacs: Bilateral common iliac, internal iliac and external iliac arteries are patent with atherosclerotic disease throughout without any significant stenosis Femorals: Bilateral common femoral, profundus femoris arteries are patent with atherosclerotic disease throughout without significant stenosis. Superficial femoral artery on the right has multiple areas of stenosis greater than 60-70%. Popliteal: Right popliteal artery with significant stenosis greater than 70% behind the knee. Left popliteal artery with significant stenosis graded at 70% behind the knee. Tibials: Tibioperoneal trunk on the right with greater than 70% stenosis with atherosclerotic disease throughout. The left tibioperoneal trunk with stenosis noted. One-vessel runoff to the ankle which was the peroneal on the left. The right anterior tibial artery is occluded and posterior tibial and peroneal artery runoff with significant stenosis noted just proximal at the tibioperoneal trunk. Operative narrative: After written informed consent was obtained the patient all risks benefits competitions were described the patient is brought to the [employer] and laid in a supine position. The area of the left groin was prepped and draped in the usual sterile fashion. Local anesthesia with moderate sedation was performed with continuous pulse ox monitoring and EKG monitoring. Utilizing ultrasound the common femoral artery was visualized and shown to be patent without any significant plaque. Utilizing a multipurpose needle under ultrasound guidance the artery was accessed. Guidewire was placed followed by a 5-Montenegrin sheath. 035 Glidewire was then placed into the aorta followed by pigtail catheter. Angiogram was then obtained of the aorta. Catheter was then placed at the bifurcation and lower extremity runoffs were obtained. Patient had significant stenosis the right lower extremity superficial femoral artery and popliteal as well as occlusion of the right anterior tibial artery with reconstitution at the distal foot. Due to this an 035 Glidewire advantage was placed into the popliteal artery and the 5-Montenegrin sheath was replaced with a 6- Montenegrin destination sheath that was placed into the superficial femoral artery. Patient was given heparin and followed with serial ACTs. 035 Glidewire was then placed into the anterior tibial artery followed by a 035 quick cross catheter. This was then exchanged for an 014 wire and the anterior tibial artery was attempted to be crossed. Were unsuccessful to cross the lesion. Due to the severe stenosis at the distal superficial femoral artery and popliteal behind the knee a 5-Montenegrin spider wire was placed and directional atherectomy was performed with Hawk one of those areas behind the knee. Once completed balloon angioplasty with a drug-eluting balloon was performed throughout the entirety of the SFA distally and popliteal and tibioperoneal trunk behind the knee. This was performed with a 6 x 200 mm balloon. Final angiogram was obtained demonstrating mild improvement of the stenosis behind the knee. Once completed all guidewires, catheters and sheaths were removed and a Vascade was placed for hemostasis. Patient tolerated procedure well was sent to PACU for recovery
[2021-10-01] MEDS ORDERED: CALCIUM ACETATE 667 MG TAB PO SCH (12:30)
[2021-10-01 15:48] VITALS: BP 110/59; PULSE 75
[2021-10-01] MEDS ORDERED: hydrALAZINE HCL 25 MG TAB PO SCH (16:00)
[2021-10-01] MEDS ORDERED: FUROSEMIDE 80 MG TAB PO SCH (17:00)
[2021-10-01] MEDS ORDERED: INSULN ASP PRT/INSULIN ASPART 100 UNIT/ML 10 ML VIAL SQ SCH (17:30)
[2021-10-01] MEDS ORDERED: METOPROLOL TARTRATE 25 MG TAB PO SCH (21:00)
[2021-10-01] MEDS ORDERED: MELATONIN 5 MG TABLET PO SCH (21:00)
[2021-10-01] MEDS ORDERED: HEPARIN FLUSH IV SCH (21:00)
[2021-10-01] MEDS ORDERED: ATORVASTATIN 40 MG TAB PO SCH (21:00)
[2021-10-01] MEDS ORDERED: LATANOPROST 0.005% OPHTH DROPS 2.5 ML BTL BOTH EYES SCH (21:00)
[2021-10-02] MEDS ORDERED: DAKINS TOPICAL SCH (09:00)
[2021-10-02] MEDS ORDERED: CLOPIDOGREL 75 MG TAB PO SCH (09:00)
[2021-10-02] MEDS ORDERED: LEVOTHYROXINE 75 MCG TAB PO SCH (09:00)
[2021-10-02] MEDS ORDERED: NON FORMULARY DRUG (Fenofibrate Nanocrystallized [Fenofibrate] 145 MG Tablet) PO SCH (09:00)
[2021-10-02] MEDS ORDERED: PANTOPRAZOLE 40 MG TABLET PO SCH (09:00)
[2021-10-02] MEDS ORDERED: NON FORMULARY DRUG (Folic Acid [Folic Acid] 0.4 MG Tablet) PO SCH (09:00)
[2021-10-02] MEDS ORDERED: ASPIRIN 81 MG PO SCH (09:00)
[2021-10-02] MEDS ORDERED: RIVAROXABAN 15 MG TAB PO SCH (09:00)
[2021-10-02] MEDS ORDERED: TAMSULOSIN 0.4 MG CAP.ER.24H PO SCH (09:00)
--- NOTE | 2021-10-03 13:24 | IR ---
EXAMINATION TYPE: IR port captain femoral popliteal DATE OF EXAM: 10/03/2021 COMPARISON: NONE HISTORY: Fluoroscopy time. Fluoroscopy was provided to the referring clinician.
== END 2021-10-01 16:10 ==
LOC: CATHCVL 06:49
PROVIDERS: ATTEND Surgery
DX: I70.229 Atherosclerosis of native arteries of extremities with rest pain, unspecified extremity (principal)
CPT/HCPCS: 37225; 37228; 75625; 75716; 87635; C1769 ×4; C1894 ×3; C1887; C1714; C1884; C2623; C1760; J2250; J2001; J3010; J1644; J1170; Q9967

== ENCOUNTER 2021-10-11 11:43 | Inpatient (IN) | payer MEDICARE ==
[2021-10-10 13:16] VITALS: BMI 31.3
[2021-10-11 12:54] LABS: Glucose,Whole Blood 100 mg/dL (75-99)
[2021-10-11] MEDS ORDERED: SODIUM CHLORIDE 0.9% 1,000 ML IV ONE (12:57)
[2021-10-11 13:03] LABS: Anisocytosis Slight; Basophils # (A) 0.1 k/uL (0-0.2); Basophils % (A) 1 %; Eosinophils # (A) 0.3 k/uL (0-0.7); Eosinophils % (A) 3 %; HCT 32.3 % (39.0-53.0); HGB 10.2 gm/dL (13.0-17.5); Lymphocytes # (A) 1.2 k/uL (1.0-4.8); Lymphocytes % (A) 10 %; MCH 30.7 pg (25.0-35.0); MCHC 31.5 g/dL (31.0-37.0); Macrocytosis Slight; Mean Platelet Volume 8.7; Monocytes # (A) 0.7 k/uL (0-1.0); Monocytes % (A) 6 %; Neutrophils # (A) 10.2 k/uL (1.3-7.7); Neutrophils % (A) 80 %; Platelet Count 354 k/uL (150-450); RBC 3.32 m/uL (4.30-5.90); RDW 16.8 % (11.5-15.5); WBC 12.7 k/uL (3.8-10.6)
[2021-10-11 13:12] LABS: Potassium 3.7 mmol/L (3.5-5.1)
[2021-10-11 13:16] LABS: MCV 97.4 fL (80.0-100.0)
[2021-10-11] MEDS ORDERED: ePHEDrine 50 MG/ML 1 ML AMP ONE (14:32)
[2021-10-11] MEDS ORDERED: fentaNYL (PF) 50 MCG/ML 2 ML AMP ONE (14:32)
[2021-10-11] MEDS ORDERED: PHENYLEPHRINE-0.9% NACL SYG 1,000 MCG/10 ML SYRINGE ONE (14:32)
[2021-10-11] MEDS ORDERED: ONDANSETRON 4 MG/2 ML VIAL ONE (14:32)
[2021-10-11] MEDS ORDERED: LIDOCAINE 1% INJ 10MG/ML (20 ML MDV) ONE (14:32)
[2021-10-11] MEDS ORDERED: ETOMIDATE 2 MG/ML 10 ML VIAL ONE (14:32)
[2021-10-11] MEDS ORDERED: SUCCINYLCHOLINE CHLORIDE 100 MG/5 ML SYR IV ONE (14:32)
--- NOTE | 2021-10-11 14:40 | P.HPIHPCON ---
History of Present Illness H&P Date: 10/11/21 Lloyd is a 76-year-old male with a significant right lower extremity wound that has previously been debrided. He was found to have worsening odor and drainage with concerns of infection. He was recently revascularized. He is here today for transmetatarsal amputation, wound VAC and antibiotic. Consent for Procedure: I have explained the operation/procedure to the patient, including the risks, benefits, side effects, alternative therapies (including not receiving the proposed treatment or service), the likelihood of the patient achieving his/her goals, and potential recuperation problems for the procedure/sedation/analgesia, as well as any blood products, if indicated. I also explained to the patient the risks, benefits and side effects of the alternatives, as well as the risks related to not receiving the proposed procedure, care, treatment, or services. Past Medical History Past Medical History: Atrial Fibrillation, Diabetes Mellitus, Dialysis, Eye Disorder, Hyperlipidemia, Hypertension, Prostate Disorder, Renal Disease, Skin Disorder, Thyroid Disorder, Vascular Disorder Additional Past Medical History / Comment(s): hemodialysis -W-, anemia, legs sometimes go out and buckle per pt, wounds right foot, PICC line, dialysis fistula left upper arm History of Any Multi-Drug Resistant Organisms: ESBL Date of last positivie culture/infection: 08/23/21 ESBL E.coli MDRO Source:: Right Foot Past Surgical History: No Surgical Hx Reported Additional Past Surgical History / Comment(s): placement of peritoneal dialysis catheter and repair of umbilical hernia 07/2017, colonoscopy w/polypectomy, right upper thigh PICC line, Rt foot wound debridement 08-23-21, aortogram & PTBA 10-01-21 Past Anesthesia/Blood Transfusion Reactions: No Reported Reaction Smoking Status: Former smoker - Past Family History Father Family Medical History: Myocardial Infarction ([place]) Additional Family Medical History / Comment(s): patient has 3 brothers, 1 sister is relatively healthy has chronic back problems patient has 5 children that are healthy with no kidney diabetes or coronary artery disease. Mother Family Medical History: Coronary Artery Disease (CAD), Diabetes Mellitus Medications and Allergies Home Medications Medication Instructions Recorded Confirmed Type Folic Acid 0.4 mg PO DAILY 11/04/19 10/10/21 History Calcium Acetate [PhosLo] 667 mg PO AC-TID 08/04/20 10/10/21 History Atorvastatin [Lipitor] 40 mg PO HS tab 08/07/20 10/10/21 Rx Insuln Asp Prt/Insulin Aspart 4 unit SQ AC-BID #1 vial 08/07/20 10/10/21 Rx [NovoLOG MIX 70-30 VIAL] Metoprolol Tartrate [Lopressor] 25 mg PO BID tab 08/07/20 10/10/21 Rx Tamsulosin [Flomax] 0.4 mg PO DAILY #30 cap.er.24h 08/07/20 10/10/21 Rx hydrALAZINE HCL [Apresoline] 25 mg PO TID tab 08/07/20 10/10/21 Rx Dakins 1 applic TOPICAL DAILY 08/20/21 10/10/21 History Fenofibrate Nanocrystallized 145 mg PO DAILY 08/20/21 10/10/21 History [Fenofibrate] Latanoprost [Xalatan 0.005%] 1 drop BOTH EYES HS 08/20/21 10/10/21 History Midodrine [ProAmatine] 5 mg PO BID PRN 08/20/21 10/10/21 History Rivaroxaban [Xarelto] 15 mg PO DAILY 08/20/21 10/10/21 History Acetaminophen Tab [Tylenol] 650 mg PO Q6HR PRN tab 08/28/21 10/10/21 Rx Ertapenem [INVanz] 0.5 gm IVPB Q24H #40 each 08/28/21 10/10/21 Rx HYDROcodone/APAP 7.5-325MG [Pruden 1 each PO Q6HR PRN #12 tab 08/28/21 10/10/21 Rx 7.5-325] Melatonin 5 mg PO HS tablet 08/28/21 10/10/21 Rx INSULIN ASPART (NovoLOG) [NovoLOG 0 unit SQ ACHS PRN 09/09/21 10/10/21 History (formulary)] Magnesium Hydroxide [Milk of 30 ml PO DAILY PRN 09/09/21 10/10/21 History Magnesia Concentrate] Na Phos,M-B/Na Phos,Di-Ba [Fleet 133 ml RECTAL ONCE PRN 09/09/21 10/10/21 History Adult] bisacodyL [Dulcolax] 10 mg RECTAL DIRECTED PRN 09/09/21 10/10/21 History Furosemide [Lasix] 80 mg PO BID@0800,1700 09/27/21 10/10/21 History Heparin Iv Flush 1 dose IV DAILY 09/27/21 10/10/21 History Levothyroxine Sodium [Synthroid] 150 mcg PO DAILY 09/27/21 10/10/21 History Pantoprazole [Protonix] 40 mg PO DAILY 09/27/21 10/10/21 History Allergies Allergy/AdvReac Type Severity Reaction Status Date / Time No Known Allergies Allergy Verified 10/11/21 12:29 Surgical - Exam Vital Signs Temp Pulse Resp BP Pulse Ox 97.8 F 70 16 117/58 96 10/11/21 13:14 10/11/21 13:14 10/11/21 13:14 10/11/21 13:14 10/11/21 13:14 Gen. is a pleasant cooperative male in no acute distress. Heart appears regular. No respiratory distress. Abdomen is soft. Right lower extremity with foul odor, necrotic tissue. Purulent drainage. Results - Labs 10/11/21 12:47 10/11/21 12:47 Abnormal Lab Results - Last 24 Hours (Table) 10/11/21 10/11/21 10/11/21 Range/Units 12:47 12:47 12:52 WBC 12.7 H (3.8-10.6) k/uL RBC 3.32 L (4.30-5.90) m/uL Hgb 10.2 L (13.0-17.5) gm/dL Hct 32.3 L (39.0-53.0) % RDW 16.8 H (11.5-15.5) % Neutrophils # 10.2 H (1.3-7.7) k/uL BUN 41 H (9-20) mg/dL Creatinine 5.38 H (0.66-1.25) mg/dL POC Glucose (mg/dL) 100 H (75-99) mg/dL Diabetes panel 10/11/21 Range/Units 12:47 Potassium 3.7 (3.5-5.1) mmol/L BUN 41 H (9-20) mg/dL Creatinine 5.38 H (0.66-1.25) mg/dL Pituitary panel 10/11/21 Range/Units 12:47 Potassium 3.7 (3.5-5.1) mmol/L BUN 41 H (9-20) mg/dL Creatinine 5.38 H (0.66-1.25) mg/dL Adrenal panel 10/11/21 Range/Units 12:47 Potassium 3.7 (3.5-5.1) mmol/L BUN 41 H (9-20) mg/dL Creatinine 5.38 H (0.66-1.25) mg/dL Assessment and Plan Assessment: Right lower extremity nonhealing wound Infected right lower extremity wound Peripheral arterial disease End-stage renal disease Plan: Infection and likely wound VAC placement. Patient will need BE admitted for the hospital for antibiotic coverage given the foul odor and purulent drainage coming from the foot at this time
[2021-10-11] MEDS ORDERED: HYDROmorphone 0.5 MG/0.5 ML SYRINGE IVP ONE ×2 (16:49→17:01)
[2021-10-11 17:08] LABS: Glucose,Whole Blood 131 mg/dL (75-99)
--- NOTE | 2021-10-11 17:47 | P.OP ---
Date of Procedure: 10/11/21 Description of Procedure: Preoperative diagnosis: [Nonhealing right lower extremity wound, right lower extremity wound infection, end-stage renal disease] Postoperative diagnosis: Same Procedure: [Transmetatarsal amputation right lower extremity right amputation right fifth metatarsal Initiation of wound VAC therapy] Surgeon: Lis Mota D.O. EBL: [40 mL] IV fluids: [See records] Urine output: [None measured] Drains: [None] Complications: [None immediately apparent] Condition: [Stable to recovery] Operative indication and findings: [The patient is a 76-year-old male who previously underwent debridement and fifth toe amputation. Initially he was offered further debridement in amputation with possible revascularization but he declined intervention at that time and stated he wanted to go for a secondary opinion. Subsequently he has been seen again and revascularization has been achieved. He continues to have a wound of his right lower extremity with worsening purulent drainage and infection of the wounds therefore this point a transmetatarsal amputation and further debridement was recommended. He seemingly understood and was willing to proceed as such after discussion of risks and benefits.] Procedure in detail: [The patient was taken to the operative suite and placed in supine position. The right lower extremity is prepped and draped in usual sterile fashion. A preprocedure timeout was performed, all parties were in agreement. At the midfoot an incision was made overlying the metatarsal bone and carried down to the medial and lateral sides of the foot. The plantar flap was created and continued laterally to the level of the previous wound. The subcutaneous tissue were dissected with electrocautery. The dissection was carried down to the level of the bone. The bones were transected with an oscillating saw. The fifth metatarsal appeared necrotic and the bony areas throughout without good caliber therefore was fully resected. The tarsal bones were free of any osteomyelitis visually the bones looked healthy. The area was then copiously irrigated. Further portions of necrotic tissue of the lateral portion of the plantar and dorsum of the foot were resected until healthy- appearing tissues. Again the area was copiously irrigated. The medial portion of tissue was reapproximated with interrupted sutures of 3-0 Vicryl and 2-0 nylon. The lateral portion was left open and a wound VAC was applied. It had good seal with no evidence of leak. The patient was then allowed awaken from anesthesia and transferred to recovery in stable condition having tolerated the procedure well. He will need significant wound care and wound healing attempts to salvage. We will have wound care see him formally at this time.]
[2021-10-11] MEDS: HYDROcodone/APAP 5-325MG 1 EACH TAB PO PRN (18:26)
[2021-10-11] MEDS: PIPERACILLIN-TAZOBACTAM 3.375 GM in SODIUM CHLORIDE 0.9% 100 ML IVPB SCH (18:58)
[2021-10-11] MEDS ORDERED: diphenhydrAMINE 25 MG CAP PO STA (19:34)
[2021-10-11] MEDS: MORPHINE SULFATE 2 MG/ML SYRINGE IVP PRN (19:50)
[2021-10-11] MEDS ORDERED: bisacodyL 10 MG SUPP RECTAL PRN (20:10)
[2021-10-11] MEDS ORDERED: HYDROcodone/APAP 7.5-325MG 1 EACH TAB PO PRN (20:10)
[2021-10-11 20:52] LABS: Glucose,Whole Blood 95 mg/dL (75-99)
[2021-10-11] MEDS: INSULIN ASPART (NovoLOG) 100 UNIT/ML VIAL SQ SCH (20:57)
[2021-10-11] MEDS ORDERED: HYDROmorphone 0.5 MG/0.5 ML SYRINGE IVP STA (21:20)
--- NOTE | 2021-10-12 00:12 | P.PN ---
Progress Note - Text Progress Note Date: 10/11/21 post mid metatarsal amputation of the right foot with wound vac POD zero patient declined evaluation at this time , as he is complaining of pain all night, and claims to be tired of being in the hospital and would like to be left alone and not answer any questions home meds reviewed, and ordered pain meds modified for better pain control stable vital signs
[2021-10-12] MEDS: METOPROLOL TARTRATE 25 MG TAB PO SCH ×3 (00:37→22:21)
[2021-10-12] MEDS: hydrALAZINE HCL 25 MG TAB PO SCH ×4 (00:37→22:22)
[2021-10-12] MEDS: MELATONIN 5 MG TABLET PO SCH ×2 (00:37→22:21)
[2021-10-12] MEDS: ATORVASTATIN 40 MG TAB PO SCH ×2 (00:37→22:21)
[2021-10-12] MEDS: MORPHINE SULFATE 2 MG/ML SYRINGE IVP PRN (06:30)
[2021-10-12] MEDS: LEVOTHYROXINE 75 MCG TAB PO SCH (06:31)
[2021-10-12 06:43] LABS: Glucose,Whole Blood 97 mg/dL (75-99)
[2021-10-12] MEDS: INSULIN ASPART (NovoLOG) 100 UNIT/ML VIAL SQ SCH ×4 (07:56→22:20)
[2021-10-12] MEDS: HYDROcodone/APAP 5-325MG 1 EACH TAB PO PRN ×2 (08:01→15:44)
[2021-10-12] MEDS: PANTOPRAZOLE 40 MG TABLET PO SCH (08:01)
[2021-10-12] MEDS: TAMSULOSIN 0.4 MG CAP.ER.24H PO SCH (08:01)
[2021-10-12] MEDS: PIPERACILLIN-TAZOBACTAM 3.375 GM in SODIUM CHLORIDE 0.9% 100 ML IVPB SCH ×2 (08:12→22:21)
--- NOTE | 2021-10-12 09:09 | P.NPCON ---
History of Present Illness - Reason for Consult end stage renal disease - History of Present Illness Reason for consultation: End-stage renal disease History of present illness: Patient is a 76-year-old male seen in consultation for end-stage renal disease. He is maintained on hemodialysis on Thursday schedule. Patient came to the hospital yesterday due to nonhealing right lower extremity wound and underwent amputation of the right fifth metatarsal with wound VAC placement. He did not receive hemodialysis yesterday. He is currently resting in bed. Feels tired. No chest pain or shortness of breath. Blood pressure stable. No fever. Vital signs are stable. HEENT: Head exam is unremarkable. LUNGS: Breath sounds decreased. HEART: Rate and Rhythm are regular. ABDOMEN: Soft, no distention. EXTREMITITES: Trace edema. Right foot wound VAC noted. Past Medical History Past Medical History: Atrial Fibrillation, Diabetes Mellitus, Dialysis, Eye Disorder, Hyperlipidemia, Hypertension, Prostate Disorder, Renal Disease, Skin Disorder, Thyroid Disorder, Vascular Disorder Additional Past Medical History / Comment(s): hemodialysis --, anemia, legs sometimes go out and buckle per pt, wounds right foot, PICC line, dialysis fistula left upper arm History of Any Multi-Drug Resistant Organisms: ESBL Date of last positivie culture/infection: 08/23/21 ESBL E.coli MDRO Source:: Right Foot Past Surgical History: No Surgical Hx Reported Additional Past Surgical History / Comment(s): placement of peritoneal dialysis catheter and repair of umbilical hernia 07/2017, colonoscopy w/polypectomy, right upper thigh PICC line, Rt foot wound debridement 08-23-21, aortogram & PTBA 10-01-21 Past Anesthesia/Blood Transfusion Reactions: No Reported Reaction Past Psychological History: No Psychological Hx Reported Smoking Status: Former smoker Past Alcohol Use History: None Reported Additional Past Alcohol Use History / Comment(s): quit smoking 50 yrs. ago, used to be a heavy drinker but quit many years ago Past Drug Use History: None Reported - Past Family History Father Family Medical History: Myocardial Infarction ([place]) Additional Family Medical History / Comment(s): patient has 3 brothers, 1 sister is relatively healthy has chronic back problems patient has 5 children that are healthy with no kidney diabetes or coronary artery disease. Mother Family Medical History: Coronary Artery Disease (CAD), Diabetes Mellitus Medications and Allergies Home Medications Medication Instructions Recorded Confirmed Type Folic Acid 0.4 mg PO DAILY 11/04/19 10/10/21 History Calcium Acetate [PhosLo] 667 mg PO AC-TID 08/04/20 10/10/21 History Atorvastatin [Lipitor] 40 mg PO HS tab 08/07/20 10/10/21 Rx Insuln Asp Prt/Insulin Aspart 4 unit SQ AC-BID #1 vial 08/07/20 10/10/21 Rx [NovoLOG MIX 70-30 VIAL] Metoprolol Tartrate [Lopressor] 25 mg PO BID tab 08/07/20 10/10/21 Rx Tamsulosin [Flomax] 0.4 mg PO DAILY #30 cap.er.24h 08/07/20 10/10/21 Rx hydrALAZINE HCL [Apresoline] 25 mg PO TID tab 08/07/20 10/10/21 Rx Dakins 1 applic TOPICAL DAILY 08/20/21 10/10/21 History Fenofibrate Nanocrystallized 145 mg PO DAILY 08/20/21 10/10/21 History [Fenofibrate] Latanoprost [Xalatan 0.005%] 1 drop BOTH EYES HS 08/20/21 10/10/21 History Midodrine [ProAmatine] 5 mg PO BID PRN 08/20/21 10/10/21 History Rivaroxaban [Xarelto] 15 mg PO DAILY 08/20/21 10/10/21 History Acetaminophen Tab [Tylenol] 650 mg PO Q6HR PRN tab 08/28/21 10/10/21 Rx Ertapenem [INVanz] 0.5 gm IVPB Q24H #40 each 08/28/21 10/10/21 Rx HYDROcodone/APAP 7.5-325MG [[place] 1 each PO Q6HR PRN #12 tab 08/28/21 10/10/21 Rx 7.5-325] Melatonin 5 mg PO HS tablet 08/28/21 10/10/21 Rx INSULIN ASPART (NovoLOG) [NovoLOG 0 unit SQ ACHS PRN 09/09/21 10/10/21 History (formulary)] Magnesium Hydroxide [Milk of 30 ml PO DAILY PRN 09/09/21 10/10/21 History Magnesia Concentrate] Na Phos,M-B/Na Phos,Di-Ba [Fleet 133 ml RECTAL ONCE PRN 09/09/21 10/10/21 History Adult] bisacodyL [Dulcolax] 10 mg RECTAL DIRECTED PRN 09/09/21 10/10/21 History Furosemide [Lasix] 80 mg PO BID@0800,1700 09/27/21 10/10/21 History Heparin Iv Flush 1 dose IV DAILY 09/27/21 10/10/21 History Levothyroxine Sodium [Synthroid] 150 mcg PO DAILY 09/27/21 10/10/21 History Pantoprazole [Protonix] 40 mg PO DAILY 09/27/21 10/10/21 History Allergies Allergy/AdvReac Type Severity Reaction Status Date / Time No Known Allergies Allergy Verified 10/11/21 12:29 Physical Exam Vitals: Vital Signs Temp Pulse Resp BP Pulse Ox 10/12/21 07:53 98.2 F 87 18 130/69 96 10/12/21 02:06 98.0 F 72 17 109/64 94 L 10/11/21 19:10 69 14 10/11/21 18:18 68 120/56 93 L 10/11/21 18:03 61 88 L 10/11/21 17:48 67 109/53 99 10/11/21 17:00 69 14 143/65 100 10/11/21 16:43 64 14 145/66 100 10/11/21 16:16 97.1 F L 64 16 110/72 100 10/11/21 13:14 97.8 F 70 16 117/58 96 Intake and Output 10/11/21 10/12/21 10/12/21 22:59 06:59 14:59 Intake Total 250 Output Total 40 350 Balance 210 -350 Intake: IV 250 Output: Urine 350 Straight 350 Estimated Blood Loss 40 Other: Voiding Method Diaper Diaper # Bowel Movements 0 Weight 104.78 kg Results - Lab Results 10/11/21 12:47 10/11/21 12:47 Assessment and Plan Plan: Assessment: 1. End-stage renal disease maintained on hemodialysis on Thursday schedule. 2. Right foot wound status post amputation of the fifth metatarsal with wound VAC placement on October 11. 3. Diabetes mellitus. 4. Hypertension with chronic kidney disease. Stable. 5. Anemia of chronic kidney disease. Plan: Hemodialysis today. Check iron studies. Thank you for the consultation. I will continue to follow the patient with you during his hospital stay.
--- NOTE | 2021-10-12 12:55 | P.PN ---
Subjective Progress Note Date: 10/12/21 This is a 76-year-old patient of Dr. Vidales'massiel with past medical history of end-stage renal disease on hemodialysis Thursday through a left arm fistula, diabetes mellitus type 2, hypertension, hyperlipidemia, hypothyroidism, anemia of chronic disease, and remote history of tobacco use. Leeann mir is a long-term patient in the wound care center with chronic wounds to the right foot. Patient was recently revascularized. Patient presented to the hospital for a scheduled amputation of the right metatarsal with application of negative pressure wound VAC and antibiotics. 10/12: This is postoperative day 1, patient has negative pressure wound VAC in place. Patient states that his pain is well-controlled. No complaints or concerns at this time. Denies any shortness of breath, chest pain, nausea or vomiting. Patient remains afebrile, heart rate 87, respirations 18, blood pressure 130/69 pulse ox is 96% on room air. Did receive 12.7, hemoglobin 10.2, BUN 41, creatinine 5.38. He is scheduled for dialysis on Thursday. REVIEW OF SYSTEMS Constitutional: No fever, no chills, no night sweats. No weight change. No weakness, fatigue or lethargy. No daytime sleepiness. EENT: No headache. No blurred vision or double vision, no loss of vision. No loss of Hearing, no ringing in the ears, no dizziness. No nasal drainage or congestion. No epistaxis. No sore throat. Lungs: No shortness of breath, cough, no sputum production. No wheezing. Cardiovascular: No chest pain, no lower extremity edema. No palpitations. No paroxysmal nocturnal dyspnea. No orthopnea. No lightheadedness or dizziness. No syncopal episodes. Abdominal: No abdominal pain. No nausea, vomiting. No diarrhea. No constipation. No bloody or tarry stools.. No loss of appetite. Genitourinary: No dysuria, increased frequency, urgency. No urinary retention. Musculoskeletal: No myalgias. No muscle weakness, no gait dysfunction, no frequent falls. No back pain. No neck pain. Integumentary: Reported wounds, no lesions. No rash or pruritus. No unusual bruising. No change in hair or nails. Neurologic: No aphasia. No facial droop. No change in mentation. No head injury. No headache. No paralysis. No paresthesia. Psychiatric: No depression. No anxiety. No mood swings. Endocrine: No abnormal blood sugars. No weight change. No excessive sweating or thirst. No cold intolerance. SOCIAL HISTORY Patient quit smoking 42 years ago. He denies any alcohol, marijuana or illicit drug use. He is single. FAMILY HISTORY Father at age 45 from myocardial infarction. Mother at age 67 from diabetes complications with history of coronary artery disease. Patient has 3 brothers and one sister relatively healthy has chronic back problems. Patient has 5 children with no major medical problems. PHYSICAL EXAMINATION Gen: This is a 76-year-old black male resting in bed and appears to be in no acute distress. HEENT: Head is atraumatic, normocephalic. Pupils equal, round. Sclerae is anicteric. NECK: Supple. No JVD. No lymphadenopathy. No thyromegaly. LUNGS: Clear to auscultation. No wheezes or rhonchi. No intercostal retractions. HEART: Regular rate and rhythm. Systolic murmur. ABDOMEN: Soft. Bowel sounds are present. No masses. No tenderness. EXTREMITIES: No pedal edema. No calf tenderness. Negative pressure wound VAC to the right metatarsal indications. Fistula left upper arm. NEUROLOGICAL: Patient is awake, alert and oriented x3. Cranial nerves 2 through 12 are grossly intact. ASSESSMENT AND PLAN 1. Right transmetatarsal amputation related to Gangrene of the right foot postop 1. Patient currently has a negative pressure wound VAC in place. 2. Acute on chronic diabetic and peripheral vascular disease ulcers to the right foot with worsening condition. Patient has been started on ertapenem dosed by pharmacy, consult with Dr. Shane bustamante. Wound culture and blood cultures in progress. 3. End-stage renal disease on hemodialysis Thursday schedule. Consult with Dr. Oropeza, continue Lasix 80 mg twice daily. PhosLo, 4. Diabetes mellitus type 2 insulin requiring. Continue NovoLog Mix 70/30 4 u nits twice daily, NovoLog scale before meals and at bedtime, 5. Hyperlipidemia. Continue atorvastatin 40 mg at bedtime 6. Chronic atrial fibrillation. Continue Lopressor 25 mg twice daily, Xarelto 15 mg daily. Hold Coreg. 7. Benign prostatic hypertrophy. Continue Flomax 0.4 mg daily. 8. Hypothyroidism. Continue levothyroxine 150 g daily. 9. Hypertension. Continue hydralazine 25 mg 3 times daily. Continue midodrine 5 mg twice daily on dialysis days. 10. Glaucoma. Continue eye drops. 11. DVT prophylaxis. Xarelto. 12. GI prophylaxis. Protonix. Patient will be admitted to the hospital for a minimum of 2 night stay. DISCHARGE PLAN Return to [facility] possibly Thursday or Thursday. Impression and plan of care have been directed as dictated by the signing physician. Mei Yi nurse practitioner acting as scribe for signing physician. Objective - Vital Signs Vital signs: Vital Signs Temp 98.2 F 10/12/21 07:53 Pulse 87 10/12/21 07:53 Resp 18 10/12/21 07:53 BP 130/69 10/12/21 07:53 Pulse Ox 96 10/12/21 07:53 Intake & Output 10/11/21 10/12/21 10/12/21 18:59 06:59 18:59 Intake Total 400 Output Total 40 350 Balance 360 -350 Weight 104.78 kg Intake: IV 400 Output: Urine 350 Straight 350 Estimated Blood Loss 40 Other: Voiding Method Diaper Diaper # Bowel Movements 0 - Labs CBC & Chem 7: 10/11/21 12:47 10/11/21 12:47 Labs: Abnormal Lab Results - Last 24 Hours (Table) 10/11/21 10/11/21 10/11/21 Range/Units 12:47 12:47 12:52 WBC 12.7 H (3.8-10.6) k/uL RBC 3.32 L (4.30-5.90) m/uL Hgb 10.2 L (13.0-17.5) gm/dL Hct 32.3 L (39.0-53.0) % RDW 16.8 H (11.5-15.5) % Neutrophils # 10.2 H (1.3-7.7) k/uL BUN 41 H (9-20) mg/dL Creatinine 5.38 H (0.66-1.25) mg/dL POC Glucose (mg/dL) 100 H (75-99) mg/dL 10/11/21 Range/Units 17:07 WBC (3.8-10.6) k/uL RBC (4.30-5.90) m/uL Hgb (13.0-17.5) gm/dL Hct (39.0-53.0) % RDW (11.5-15.5) % Neutrophils # (1.3-7.7) k/uL BUN (9-20) mg/dL Creatinine (0.66-1.25) mg/dL POC Glucose (mg/dL) 131 H (75-99) mg/dL Microbiology - Last 24 Hours (Table) 10/11/21 16:10 Anaerobic Culture - Preliminary Foot - Right 10/11/21 16:10 Wound Culture - Preliminary Foot - Right
--- NOTE | 2021-10-12 13:00 | P.CONS ---
History of Present Illness - Reason for Consult Consult date: 10/12/21 Wound care - History of Present Illness This is a 76-year-old patient known to the wound care center who underwent a transmetatarsal amputation with Dr. Mota on Thursday related to gangrene of the right foot. Patient has a diabetic foot ulcer Nava grade 4 Currently patient has a negative pressure wound VAC in place. Review Of Systems: Constitutional: No fever, no chills, no night sweats. No weight change. No weakness, fatigue or lethargy. No daytime sleepiness. Integumentary:reports wounds, no lesions. No rash or pruritus. No unusual bruising. No change in hair or nails. Physical exam: General Appearance: Alert, cooperative, no distress, appears stated age. Skin: See HPI all other Skin color, texture, tugor normal, no rashes or lesions. Neurologic: Alert oriented x3 Assessment: 1. Gangrene of right foot 2. Diabetic foot ulcer Nava grade 4 3. Status post transmetatarsal amputation Plan: 1.Negative pressure wound VAC with black foam 125 mmHg continuous suction. The patient is discharged may apply absorptive silver to the site, saline moistened gauze, dry gauze, rolled gauze and secure with paper tape. Once a outpatient wound VAC is available continue with the previous wound VAC orders. Patient to continue with his outpatient wound care in the wound care Center. Thank you for the consultation any questions please contact the wound care center. DNP note has been reviewed and discussed with Dr. Gil and the impression and plan of care has been directed as dictated. Past Medical History Past Medical History: Atrial Fibrillation, Diabetes Mellitus, Dialysis, Eye Disorder, Hyperlipidemia, Hypertension, Prostate Disorder, Renal Disease, Skin Disorder, Thyroid Disorder, Vascular Disorder Additional Past Medical History / Comment(s): hemodialysis M-W-F, anemia, legs sometimes go out and buckle per pt, wounds right foot, PICC line, dialysis fistula left upper arm History of Any Multi-Drug Resistant Organisms: ESBL Year Discovered:: 08/23/21 ESBL E.coli MDRO Source:: Right Foot Past Surgical History: No Surgical Hx Reported Additional Past Surgical History / Comment(s): placement of peritoneal dialysis catheter and repair of umbilical hernia 07/2017, colonoscopy w/polypectomy, right upper thigh PICC line, Rt foot wound debridement 08-23-21, aortogram & PTBA 10-01-21 Past Anesthesia/Blood Transfusion Reactions: No Reported Reaction Past Psychological History: No Psychological Hx Reported Smoking Status: Former smoker Past Alcohol Use History: None Reported Additional Past Alcohol Use History / Comment(s): quit smoking 50 yrs. ago, used to be a heavy drinker but quit many years ago Past Drug Use History: None Reported - Past Family History Father Family Medical History: Myocardial Infarction ([place]) Additional Family Medical History / Comment(s): patient has 3 brothers, 1 sister is relatively healthy has chronic back problems patient has 5 children that are healthy with no kidney diabetes or coronary artery disease. Mother Family Medical History: Coronary Artery Disease (CAD), Diabetes Mellitus Medications and Allergies Home Medications Medication Instructions Recorded Confirmed Type Folic Acid 0.4 mg PO DAILY 11/04/19 10/10/21 History Calcium Acetate [PhosLo] 667 mg PO AC-TID 08/04/20 10/10/21 History Atorvastatin [Lipitor] 40 mg PO HS tab 08/07/20 10/10/21 Rx Insuln Asp Prt/Insulin Aspart 4 unit SQ AC-BID #1 vial 08/07/20 10/10/21 Rx [NovoLOG MIX 70-30 VIAL] Metoprolol Tartrate [Lopressor] 25 mg PO BID tab 08/07/20 10/10/21 Rx Tamsulosin [Flomax] 0.4 mg PO DAILY #30 cap.er.24h 08/07/20 10/10/21 Rx hydrALAZINE HCL [Apresoline] 25 mg PO TID tab 08/07/20 10/10/21 Rx Dakins 1 applic TOPICAL DAILY 08/20/21 10/10/21 History Fenofibrate Nanocrystallized 145 mg PO DAILY 08/20/21 10/10/21 History [Fenofibrate] Latanoprost [Xalatan 0.005%] 1 drop BOTH EYES HS 08/20/21 10/10/21 History Midodrine [ProAmatine] 5 mg PO BID PRN 08/20/21 10/10/21 History Rivaroxaban [Xarelto] 15 mg PO DAILY 08/20/21 10/10/21 History Acetaminophen Tab [Tylenol] 650 mg PO Q6HR PRN tab 08/28/21 10/10/21 Rx Ertapenem [INVanz] 0.5 gm IVPB Q24H #40 each 08/28/21 10/10/21 Rx HYDROcodone/APAP 7.5-325MG [[place] 1 each PO Q6HR PRN #12 tab 08/28/21 10/10/21 Rx 7.5-325] Melatonin 5 mg PO HS tablet 08/28/21 10/10/21 Rx INSULIN ASPART (NovoLOG) [NovoLOG 0 unit SQ ACHS PRN 09/09/21 10/10/21 History (formulary)] Magnesium Hydroxide [Milk of 30 ml PO DAILY PRN 09/09/21 10/10/21 History Magnesia Concentrate] Na Phos,M-B/Na Phos,Di-Ba [Fleet 133 ml RECTAL ONCE PRN 09/09/21 10/10/21 History Adult] bisacodyL [Dulcolax] 10 mg RECTAL DIRECTED PRN 09/09/21 10/10/21 History Furosemide [Lasix] 80 mg PO BID@0800,1700 09/27/21 10/10/21 History Heparin Iv Flush 1 dose IV DAILY 09/27/21 10/10/21 History Levothyroxine Sodium [Synthroid] 150 mcg PO DAILY 09/27/21 10/10/21 History Pantoprazole [Protonix] 40 mg PO DAILY 09/27/21 10/10/21 History Allergies Allergy/AdvReac Type Severity Reaction Status Date / Time No Known Allergies Allergy Verified 10/11/21 12:29 Physical Exam Vitals: Vital Signs Temp Pulse Resp BP Pulse Ox 10/12/21 07:53 98.2 F 87 18 130/69 96 10/12/21 02:06 98.0 F 72 17 109/64 94 L 10/11/21 19:10 69 14 10/11/21 18:18 68 120/56 93 L 10/11/21 18:03 61 88 L 10/11/21 17:48 67 109/53 99 10/11/21 17:00 69 14 143/65 100 10/11/21 16:43 64 14 145/66 100 10/11/21 16:16 97.1 F L 64 16 110/72 100 10/11/21 13:14 97.8 F 70 16 117/58 96 Intake and Output 10/11/21 10/12/21 10/12/21 22:59 06:59 14:59 Intake Total 250 Output Total 40 350 Balance 210 -350 Intake: IV 250 Output: Urine 350 Straight 350 Estimated Blood Loss 40 Other: Voiding Method Diaper Diaper # Bowel Movements 0 Weight 104.78 kg Results CBC & Chem 7: 10/11/21 12:47 10/11/21 12:47 Labs: Abnormal Lab Results - Last 24 Hours (Table) 10/11/21 10/11/21 10/11/21 Range/Units 12:47 12:47 17:07 WBC 12.7 H (3.8-10.6) k/uL RBC 3.32 L (4.30-5.90) m/uL Hgb 10.2 L (13.0-17.5) gm/dL Hct 32.3 L (39.0-53.0) % RDW 16.8 H (11.5-15.5) % Neutrophils # 10.2 H (1.3-7.7) k/uL BUN 41 H (9-20) mg/dL Creatinine 5.38 H (0.66-1.25) mg/dL POC Glucose (mg/dL) 131 H (75-99) mg/dL Microbiology - Last 24 Hours (Table) 10/11/21 16:10 Anaerobic Culture - Preliminary Foot - Right 10/11/21 16:10 Wound Culture - Preliminary Foot - Right Assessment and Plan (1) Non-pressure chronic ulcer of other part of right foot with necrosis of bone Current Visit: No Status: Acute Code(s): L97.514 - NON-PRS CHRONIC ULCER OTH PRT RIGHT FOOT W NECROSIS OF BONE SNOMED Code(s): 041377737 (2) Type 2 diabetes mellitus with foot ulcer Current Visit: No Status: Acute Code(s): E11.621 - TYPE 2 DIABETES MELLITUS WITH FOOT ULCER; L97.509 - NON-PRESSURE CHRONIC ULCER OTH PRT UNSP FOOT W UNSP SEVERITY SNOMED Code(s): 574531801 (3) Gangrene of right foot Current Visit: Yes Status: Acute Code(s): I96 - GANGRENE, NOT ELSEWHERE CLASSIFIED SNOMED Code(s): 10760320127617861
--- NOTE | 2021-10-12 13:34 | P.PN ---
Subjective Progress Note Date: 10/12/21 Principal diagnosis: right foot wound patient seen and examined. Doing well since surgery. Pain controlled with medications. No fevers, chest pain or shortness of breath. Objective - Vital Signs Vital signs: Vital Signs Temp 98.2 F 10/12/21 07:53 Pulse 87 10/12/21 07:53 Resp 18 10/12/21 07:53 BP 130/69 10/12/21 07:53 Pulse Ox 96 10/12/21 07:53 Intake & Output 10/11/21 10/12/21 10/12/21 18:59 06:59 18:59 Intake Total 400 Output Total 40 350 Balance 360 -350 Weight 104.78 kg Intake: IV 400 Output: Urine 350 Straight 350 Estimated Blood Loss 40 Other: Voiding Method Diaper Diaper # Bowel Movements 0 - Exam foot is warm. Wound vac intact. Minimal tenderness. - Constitutional General appearance: Present: average body habitus, cooperative, obese - Respiratory Respiratory: bilateral: diminished - Cardiovascular Rhythm: regular - Musculoskeletal Musculoskeletal: Present: generalized weakness - Psychiatric Psychiatric: Present: appropriate affect. Absent: intact judgment & insight - Labs CBC & Chem 7: 10/11/21 12:47 10/11/21 12:47 Labs: Abnormal Lab Results - Last 24 Hours (Table) 10/11/21 Range/Units 17:07 POC Glucose (mg/dL) 131 H (75-99) mg/dL Microbiology - Last 24 Hours (Table) 10/11/21 16:10 Anaerobic Culture - Preliminary Foot - Right 10/11/21 16:10 Wound Culture - Preliminary Foot - Right Assessment and Plan Assessment: 1. POD 1 TMA and wound vac placement 2. 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
[2021-10-12 16:38] LABS: Glucose,Whole Blood 90 mg/dL (75-99)
[2021-10-12 18:19] LABS: % Iron Saturation 16.24 (15.00-50.00)
[2021-10-12 20:50] LABS: Glucose,Whole Blood 182 mg/dL (75-99)
[2021-10-12] MEDS: ACETAMINOPHEN TAB 325 MG TAB PO PRN (22:22)
[2021-10-13] MEDS: MORPHINE SULFATE 2 MG/ML SYRINGE IVP PRN (00:19)
[2021-10-13] MEDS: HYDROcodone/APAP 5-325MG 1 EACH TAB PO PRN ×3 (05:52→21:41)
[2021-10-13] MEDS: LEVOTHYROXINE 75 MCG TAB PO SCH (05:52)
[2021-10-13 06:43] LABS: Glucose,Whole Blood 91 mg/dL (75-99)
[2021-10-13] MEDS: INSULIN ASPART (NovoLOG) 100 UNIT/ML VIAL SQ SCH ×4 (07:26→21:36)
--- NOTE | 2021-10-13 09:38 | P.PN ---
Subjective Patient is seen in follow-up for end-stage renal disease. He is maintained on hemodialysis on Thursday schedule. Resting in bed. No chest pain or shortness of breath. Vital signs are stable. General: The patient appeared well nourished and normally developed. HEENT: Head exam is unremarkable. Neck is without jugular venous distension. LUNGS: Breath sounds decreased. HEART: Rate and Rhythm are regular. ABDOMEN: Soft, no distention. EXTREMITITES: No edema. Wound VAC noted. No drainage. Toe amputation noted. Objective - Vital Signs Vital signs: Vital Signs Temp 97.6 F 10/13/21 07:26 Pulse 87 10/13/21 07:26 Resp 18 10/13/21 07:26 BP 117/62 10/13/21 07:26 Pulse Ox 94 L 10/13/21 07:26 Intake & Output 10/12/21 10/13/21 10/13/21 18:59 06:59 18:59 Intake Total 700 Output Total 2650 Balance -1950 Intake: Oral 400 Hemodialysis 300 Output: Urine 350 Straight 350 Hemodialysis 2300 Other: Voiding Method Diaper Diaper # Voids 0 # Bowel Movements 0 - Labs CBC & Chem 7: 10/11/21 12:47 10/11/21 12:47 Labs: Abnormal Lab Results - Last 24 Hours (Table) 10/11/21 10/12/21 Range/Units 12:47 20:49 POC Glucose (mg/dL) 182 H (75-99) mg/dL Iron 37 L (65-175) ug/dL TIBC 225 L (228-460) ug/dL Transferrin 161.0 L (204.0-354.0) mg/dL Ferritin 1036.0 H (22.0-322.0) ng/mL Microbiology - Last 24 Hours (Table) 10/11/21 16:10 Gram Stain - Final Foot - Right Wound Culture - Final Assessment and Plan Plan: Assessment: 1. End-stage renal disease maintained on hemodialysis on Thursday schedule. 2. Right foot wound status post amputation of the fifth metatarsal with wound VAC placement on October 11. 3. Diabetes mellitus. 4. Hypertension with chronic kidney disease. Stable. 5. Anemia of chronic kidney disease. Iron deficiency noted. Plan: Hemodialysis tomorrow. Add IV iron.
[2021-10-13] MEDS: TAMSULOSIN 0.4 MG CAP.ER.24H PO SCH (09:39)
[2021-10-13] MEDS: PANTOPRAZOLE 40 MG TABLET PO SCH (09:39)
[2021-10-13] MEDS: METOPROLOL TARTRATE 25 MG TAB PO SCH ×2 (09:39→21:36)
[2021-10-13] MEDS ORDERED: LACTULOSE 20 GM/30 ML CUP PO ONE (09:40)
[2021-10-13] MEDS: hydrALAZINE HCL 25 MG TAB PO SCH ×2 (09:40→16:09)
[2021-10-13] MEDS: PIPERACILLIN-TAZOBACTAM 3.375 GM in SODIUM CHLORIDE 0.9% 100 ML IVPB SCH ×2 (09:41→21:37)
[2021-10-13 11:30] LABS: Glucose,Whole Blood 117 mg/dL (75-99)
--- NOTE | 2021-10-13 11:45 | P.PN ---
Subjective Progress Note Date: 10/13/21 This is a 76-year-old patient of Dr. Vidales'massiel with past medical history of end-stage renal disease on hemodialysis Thursday through a left arm fistula, diabetes mellitus type 2, hypertension, hyperlipidemia, hypothyroidism, anemia of chronic disease, and remote history of tobacco use. Leeann mir is a long-term patient in the wound care center with chronic wounds to the right foot. Patient was recently revascularized. Patient presented to the hospital for a scheduled amputation of the right metatarsal with application of negative pressure wound VAC and antibiotics. 10/12: This is postoperative day 1, patient has negative pressure wound VAC in place. Patient states that his pain is well-controlled. No complaints or concerns at this time. Denies any shortness of breath, chest pain, nausea or vomiting. Patient remains afebrile, heart rate 87, respirations 18, blood pressure 130/69 pulse ox is 96% on room air. Did receive 12.7, hemoglobin 10.2, BUN 41, creatinine 5.38. He is scheduled for dialysis on Thursday. 10/13: This is postop day 2. Patient signed a pressure wound VAC in place. Patient states that his pain is under control. No complaints at this time. Patient is found resting comfortably in bed in no acute distress. Patient did have episode of confusion overnight. However this morning he has alert and able to answer questions appropriately. Patient is complaining of constipation which we will start lactulose 1 dose. Patient had dialysis yesterday since it was missed on Thursday. We will continue with his Thursday schedule. Patient will return to [facility] hopefully Thursday. REVIEW OF SYSTEMS Constitutional: No fever, no chills, no night sweats. No weight change. No weakness, fatigue or lethargy. No daytime sleepiness. EENT: No headache. No blurred vision or double vision, no loss of vision. No loss of Hearing, no ringing in the ears, no dizziness. No nasal drainage or congestion. No epistaxis. No sore throat. Lungs: No shortness of breath, cough, no sputum production. No wheezing. Cardiovascular: No chest pain, no lower extremity edema. No palpitations. No paroxysmal nocturnal dyspnea. No orthopnea. No lightheadedness or dizziness. No syncopal episodes. Abdominal: No abdominal pain. No nausea, vomiting. No diarrhea. No constipation. No bloody or tarry stools.. No loss of appetite. Genitourinary: No dysuria, increased frequency, urgency. No urinary retention. Musculoskeletal: No myalgias. No muscle weakness, no gait dysfunction, no frequent falls. No back pain. No neck pain. Integumentary: Reported wounds, no lesions. No rash or pruritus. No unusual bruising. No change in hair or nails. Neurologic: No aphasia. No facial droop. No change in mentation. No head injury. No headache. No paralysis. No paresthesia. Psychiatric: No depression. No anxiety. No mood swings. Endocrine: No abnormal blood sugars. No weight change. No excessive sweating or thirst. No cold intolerance. PHYSICAL EXAMINATION Gen: This is a 76-year-old black male resting in bed and appears to be in no acute distress. HEENT: Head is atraumatic, normocephalic. Pupils equal, round. Sclerae is anicteric. NECK: Supple. No JVD. No lymphadenopathy. No thyromegaly. LUNGS: Clear to auscultation. No wheezes or rhonchi. No intercostal retractions. HEART: Regular rate and rhythm. Systolic murmur. ABDOMEN: Soft. Bowel sounds are present. No masses. No tenderness. EXTREMITIES: No pedal edema. No calf tenderness. Negative pressure wound VAC to the right metatarsal indications. Fistula left upper arm. NEUROLOGICAL: Patient is awake, alert and oriented x3. Cranial nerves 2 through 12 are grossly intact. ASSESSMENT AND PLAN 1. Right transmetatarsal amputation related to Gangrene of the right foot postop 2. Patient currently has a negative pressure wound VAC in place. 2. Acute on chronic diabetic and peripheral vascular disease ulcers to the right foot with worsening condition. Patient has been started on ertapenem dosed by pharmacy, consult with Dr. Shane bustamante. Wound culture and blood cultures in progress. 3. End-stage renal disease on hemodialysis Thursday schedule. Consult with Dr. Oropeza, continue Lasix 80 mg twice daily. PhosLo, 4. Diabetes mellitus type 2 insulin requiring. Continue NovoLog Mix 70/30 4 units twice daily, NovoLog scale before meals and at bedtime, 5. Hyperlipidemia. Continue atorvastatin 40 mg at bedtime 6. Chronic atrial fibrillation. Continue Lopressor 25 mg twice daily, Xarelto 15 mg daily. Hold Coreg. 7. Benign prostatic hypertrophy. Continue Flomax 0.4 mg daily. 8. Hypothyroidism. Continue levothyroxine 150 g daily. 9. Hypertension. Continue hydralazine 25 mg 3 times daily. Continue midodrine 5 mg twice daily on dialysis days. 10. Glaucoma. Continue eye drops. 11. Constipation. Lactulose 30 mg 1 dose 12. DVT prophylaxis. Xarelto. 13. GI prophylaxis. Protonix. Patient will be admitted to the hospital for a minimum of 2 night stay. DISCHARGE PLAN Return to [facility] possibly Thursday or Thursday. Impression and plan of care have been directed as dictated by the signing physician. Mei Yi nurse practitioner acting as scribe for signing physician. Objective - Vital Signs Vital signs: Vital Signs Temp 97.6 F 10/13/21 07:26 Pulse 87 10/13/21 07:26 Resp 18 10/13/21 07:26 BP 117/62 10/13/21 07:26 Pulse Ox 94 L 10/13/21 07:26 Intake & Output 10/12/21 10/13/21 10/13/21 18:59 06:59 18:59 Intake Total 700 Output Total 2650 Balance -1950 Intake: Oral 400 Hemodialysis 300 Output: Urine 350 Straight 350 Hemodialysis 2300 Other: Voiding Method Diaper Diaper Diaper # Voids 0 # Bowel Movements 0 - Labs CBC & Chem 7: 10/11/21 12:47 10/11/21 12:47 Labs: Abnormal Lab Results - Last 24 Hours (Table) 10/11/21 10/12/21 10/13/21 Range/Units 12:47 20:49 11:28 POC Glucose (mg/dL) 182 H 117 H (75-99) mg/dL Iron 37 L (65-175) ug/dL TIBC 225 L (228-460) ug/dL Transferrin 161.0 L (204.0-354.0) mg/dL Ferritin 1036.0 H (22.0-322.0) ng/mL Microbiology - Last 24 Hours (Table) 10/11/21 16:10 Gram Stain - Final Foot - Right Wound Culture - Final Assessment and Plan (1) Non-pressure chronic ulcer of other part of right foot with necrosis of bone Current Visit: No Status: Acute Code(s): L97.514 - NON-PRS CHRONIC ULCER OTH PRT RIGHT FOOT W NECROSIS OF BONE SNOMED Code(s): 517319336 (2) Type 2 diabetes mellitus with foot ulcer Current Visit: No Status: Acute Code(s): E11.621 - TYPE 2 DIABETES MELLITUS WITH FOOT ULCER; L97.509 - NON-PRESSURE CHRONIC ULCER OTH PRT UNSP FOOT W UNSP SEVERITY SNOMED Code(s): 658238401 (3) Gangrene of right foot Current Visit: Yes Status: Acute Code(s): I96 - GANGRENE, NOT ELSEWHERE CLASSIFIED SNOMED Code(s): 71140920101387291
[2021-10-13] MEDS: SODIUM FERRIC GLUCONAT-SUCROSE 125 MG in SODIUM CHLORIDE 0.9% 100 ML IVPB SCH (11:51)
--- NOTE | 2021-10-13 12:03 | P.CONS ---
History of Present Illness - Reason for Consult Consult date: 10/05/21 right dianetic foot infection Requesting physician: Lis Mota - Chief Complaint right foot worsening wound x days - History of Present Illness History of present illness : Patient is 76-year-old -Danish male with a past medical history significant for end-stage renal disease on dialysis and the patient also have a right diabetic foot infection with underlying osteomyelitis culture positive for ESBL E. coli Enterococcus faecalis for the patient was advised Invanz 5 mg daily for 6 weeks unfortunately patient was never seen in the follow-up patient apparently noticed to have worsening although the drainage in this patient recently did have a vascularization procedure patient was admitted likely to hospital on 10/11/2021 and is status post transmetatarsal reputation on the right foot postop wound VAC has been applied culture has reviewed which are currently pending patient was started on Zosyn infectious he was consulted last evening for further management of antibiotic therapy patient is currently afebrile denies any chest pain shortness of breath or cough and no worsening pain to the right foot transmetatarsal amputation site Review of system: CONSTITUTIONAL: Positive for weakness denies fever. EYES: No complaint. ENT: No complaint. RESPIRATORY: No complaint. CARDIOVASCULAR: No complaint. GENITOURINARY: No complaint. GASTROINTESTINAL: No complaint. MUSCULOSKELETAL: As per history of present illness. INTEGUMENTARY: No complaint. PSYCHOLOGIC: No complaint. ENDOCRINE: No complaint. NEUROLOGIC: No complaint. Past medical history : Reviewed, documented below Past surgical history : Reviewed, documented below Social history: Reviewed, documented below Medications: Reviewed, as documented below EXAMINATION: Vital sigans= Reviewed and documented below GENERAL DESCRIPTION: Elderly male lying in bed, no distress. No tachypnea or accessory muscle of respiration use. HEENT: Shows Pallor , no scleral icterus. Oral mucous membrane is dry. NECK: Trachea central, no thyromegaly. LUNGS: Unlabored breathing. Clear to auscultation anteriorly. No wheeze or crackle. HEART: S1, S2, regular rate and rhythm. ABDOMEN: Soft, no tenderness , guarding or rigidity EXTREMITIES: Right foot transmetatarsal amputation site wound is currently covered with a wound VAC some swelling no redness. SKIN: No rash, no masses palpable. NEUROLOGICAL: The patient is awake, alert, oriented x3, mood and affect normal. LABS AND RADIOLOGY: Reviewed results see below Assessment : Patient with right diabetic foot infection in this patient presen jonel to hospital with a nonhealing wound in this patient status post right foot transmetatarsal amputation with infected port removed patient will likely not need long-term antibiotic therapy Plan: 1-patient to continue with Zosyn while waiting for the culture to finalize 2-local wound care with wound VAC 3-discharge antibiotics on the basis of culture We will follow on clinical condition and cultures to further adjust medication if needed Thank you for this consultation we will follow the patient along with you Past Medical History Past Medical History: Atrial Fibrillation, Diabetes Mellitus, Dialysis, Eye Disorder, Hyperlipidemia, Hypertension, Prostate Disorder, Renal Disease, Skin Disorder, Thyroid Disorder, Vascular Disorder Additional Past Medical History / Comment(s): hemodialysis --, anemia, legs sometimes go out and buckle per pt, wounds right foot, PICC line, dialysis fistula left upper arm History of Any Multi-Drug Resistant Organisms: ESBL Year Discovered:: 08/23/21 ESBL E.coli MDRO Source:: Right Foot Past Surgical History: No Surgical Hx Reported Additional Past Surgical History / Comment(s): placement of peritoneal dialysis catheter and repair of umbilical hernia 07/2017, colonoscopy w/polypectomy, right upper thigh PICC line, Rt foot wound debridement 08-23-21, aortogram & PTBA 10-01-21 Past Anesthesia/Blood Transfusion Reactions: No Reported Reaction Past Psychological History: No Psychological Hx Reported Smoking Status: Former smoker Past Alcohol Use History: None Reported Additional Past Alcohol Use History / Comment(s): quit smoking 50 yrs. ago, used to be a heavy drinker but quit many years ago Past Drug Use History: None Reported - Past Family History Father Family Medical History: Myocardial Infarction (OR) Additional Family Medical History / Comment(s): patient has 3 brothers, 1 sister is relatively healthy has chronic back problems patient has 5 children that are healthy with no kidney diabetes or coronary artery disease. Mother Family Medical History: Coronary Artery Disease (CAD), Diabetes Mellitus Medications and Allergies Home Medications Medication Instructions Recorded Confirmed Type Folic Acid 0.4 mg PO DAILY 11/04/19 10/10/21 History Calcium Acetate [PhosLo] 667 mg PO AC-TID 08/04/20 10/10/21 History Atorvastatin [Lipitor] 40 mg PO HS tab 08/07/20 10/10/21 Rx Insuln Asp Prt/Insulin Aspart 4 unit SQ AC-BID #1 vial 08/07/20 10/10/21 Rx [NovoLOG MIX 70-30 VIAL] Metoprolol Tartrate [Lopressor] 25 mg PO BID tab 08/07/20 10/10/21 Rx Tamsulosin [Flomax] 0.4 mg PO DAILY #30 cap.er.24h 08/07/20 10/10/21 Rx hydrALAZINE HCL [Apresoline] 25 mg PO TID tab 08/07/20 10/10/21 Rx Dakins 1 applic TOPICAL DAILY 08/20/21 10/10/21 History Fenofibrate Nanocrystallized 145 mg PO DAILY 08/20/21 10/10/21 History [Fenofibrate] Latanoprost [Xalatan 0.005%] 1 drop BOTH EYES HS 08/20/21 10/10/21 History Midodrine [ProAmatine] 5 mg PO BID PRN 08/20/21 10/10/21 History Rivaroxaban [Xarelto] 15 mg PO DAILY 08/20/21 10/10/21 History Acetaminophen Tab [Tylenol] 650 mg PO Q6HR PRN tab 08/28/21 10/10/21 Rx Ertapenem [INVanz] 0.5 gm IVPB Q24H #40 each 08/28/21 10/10/21 Rx HYDROcodone/APAP 7.5-325MG [[place] 1 each PO Q6HR PRN #12 tab 08/28/21 10/10/21 Rx 7.5-325] Melatonin 5 mg PO HS tablet 08/28/21 10/10/21 Rx INSULIN ASPART (NovoLOG) [NovoLOG 0 unit SQ ACHS PRN 09/09/21 10/10/21 History (formulary)] Magnesium Hydroxide [Milk of 30 ml PO DAILY PRN 09/09/21 10/10/21 History Magnesia Concentrate] Na Phos,M-B/Na Phos,Di-Ba [Fleet 133 ml RECTAL ONCE PRN 09/09/21 10/10/21 H istory Adult] bisacodyL [Dulcolax] 10 mg RECTAL DIRECTED PRN 09/09/21 10/10/21 History Furosemide [Lasix] 80 mg PO BID@0800,1700 09/27/21 10/10/21 History Heparin Iv Flush 1 dose IV DAILY 09/27/21 10/10/21 History Levothyroxine Sodium [Synthroid] 150 mcg PO DAILY 09/27/21 10/10/21 History Pantoprazole [Protonix] 40 mg PO DAILY 09/27/21 10/10/21 History Allergies Allergy/AdvReac Type Severity Reaction Status Date / Time No Known Allergies Allergy Verified 10/11/21 12:29 Physical Exam Vitals: Vital Signs Temp Pulse Resp BP Pulse Ox 10/12/21 13:50 98.5 F 64 16 105/66 93 L 10/12/21 07:53 98.2 F 87 18 130/69 96 10/12/21 02:06 98.0 F 72 17 109/64 94 L 10/11/21 19:10 69 14 10/11/21 18:18 68 120/56 93 L 10/11/21 18:03 61 88 L 10/11/21 17:48 67 109/53 99 10/11/21 17:00 69 14 143/65 100 10/11/21 16:43 64 14 145/66 100 10/11/21 16:16 97.1 F L 64 16 110/72 100 Intake and Output 10/12/21 10/12/21 10/12/21 06:59 14:59 22:59 Output Total 350 Balance -350 Output: Urine 350 Straight 350 Other: Voiding Method Diaper # Bowel Movements 0 Results CBC & Chem 7: 10/11/21 12:47 10/11/21 12:47 Labs: Abnormal Lab Results - Last 24 Hours (Table) 10/11/21 Range/Units 17:07 POC Glucose (mg/dL) 131 H (75-99) mg/dL Microbiology - Last 24 Hours (Table) 10/11/21 16:10 Anaerobic Culture - Preliminary Foot - Right 10/11/21 16:10 Wound Culture - Preliminary Foot - Right
[2021-10-13 16:10] LABS: Glucose,Whole Blood 157 mg/dL (75-99)
[2021-10-13] MEDS: ACETAMINOPHEN TAB 325 MG TAB PO PRN (16:14)
[2021-10-13 21:12] LABS: Glucose,Whole Blood 145 mg/dL (75-99)
[2021-10-13] MEDS: ATORVASTATIN 40 MG TAB PO SCH (21:36)
[2021-10-13] MEDS: MELATONIN 5 MG TABLET PO SCH (21:36)
--- NOTE | 2021-10-13 23:09 | PN ---
PROGRESS NOTE DATE OF SERVICE: 10/13/2021 REASON FOR FOLLOWUP: Right diabetic foot infection. INTERVAL HISTORY: The patient is afebrile. The patient is currently breathing comfortably. No chest pain, shortness of breath or cough. No abdominal pain. Pain to the right transmetatarsal amputation site is currently controlled. PHYSICAL EXAMINATION: Blood pressure 105/63 with a pulse of 75, temperature 97.8. He is 92% on room air. General description is an elderly male lying in bed in no distress. Respiratory system: Unlabored breathing, clear to auscultation anteriorly. Heart S1, S2. Regular rate and rhythm. Abdomen soft, no tenderness. Right foot is currently covered with a wound V.A.C. No drainage on the dressing. LABS: Cultures are currently pending. DIAGNOSTIC IMPRESSION AND PLAN: Patient with a right diabetic foot infection with gangrene, failing outpatient therapy, status post transmetatarsal amputation. Those cultures are currently pending. Patient is covered with Zosyn; to continue to continue while monitoring his clinical course closely. Continue with supportive care. MMODL / IJN: [id number] /
[2021-10-14] MEDS: hydrALAZINE HCL 25 MG TAB PO SCH ×4 (04:02→21:53)
[2021-10-14] MEDS: LEVOTHYROXINE 75 MCG TAB PO SCH (05:49)
[2021-10-14] MEDS: HYDROcodone/APAP 5-325MG 1 EACH TAB PO PRN ×2 (05:49→17:27)
[2021-10-14 07:48] LABS: Glucose,Whole Blood 167 mg/dL (75-99)
[2021-10-14] MEDS: INSULIN ASPART (NovoLOG) 100 UNIT/ML VIAL SQ SCH ×4 (08:57→22:18)
[2021-10-14] MEDS: TAMSULOSIN 0.4 MG CAP.ER.24H PO SCH (08:58)
[2021-10-14] MEDS: PIPERACILLIN-TAZOBACTAM 3.375 GM in SODIUM CHLORIDE 0.9% 100 ML IVPB SCH ×2 (08:59→21:52)
[2021-10-14] MEDS: PANTOPRAZOLE 40 MG TABLET PO SCH (08:59)
[2021-10-14] MEDS: METOPROLOL TARTRATE 25 MG TAB PO SCH ×2 (08:59→21:53)
[2021-10-14 11:39] LABS: Glucose,Whole Blood 121 mg/dL (75-99)
[2021-10-14] MEDS: SODIUM FERRIC GLUCONAT-SUCROSE 125 MG in SODIUM CHLORIDE 0.9% 100 ML IVPB SCH (11:42)
--- NOTE | 2021-10-14 12:59 | P.PN ---
Subjective Progress Note Date: 10/14/21 Patient was seen and examined lying in bed. He is status post an amputation of the fifth metatarsal with wound VAC placement. He has a wound VAC to the right foot with good suction. Infectious diseases on consult, he remains on broad- spectrum antibiotics. Awaiting final wound culture results. Patient states he has not been up out of bed yet. States his pain is well controlled. He is scheduled for hemodialysis today. He's been afebrile. Objective - Vital Signs Vital signs: Vital Signs Temp 97.4 F L 10/14/21 08:00 Pulse 66 10/14/21 08:00 Resp 18 10/14/21 08:00 BP 119/64 10/14/21 08:00 Pulse Ox 95 10/14/21 08:17 Intake & Output 10/13/21 10/14/21 10/14/21 18:59 06:59 18:59 Intake Total 600 Balance 600 Intake: IV 100 Sodium Ferric Gluconat- 100 Sucrose 125 mg In Sodium Chloride 0.9% 100 ml @ 100 mls/hr IVPB DAILY [facility] Rx#:[id number] Oral 500 Other: Voiding Method Diaper Diaper Diaper # Voids 0 # Bowel Movements 1 - Exam General appearance: The patient is alert, oriented, in no acute distress. HET: Head is normocephalic and atraumatic. Pupils are equal and reactive. Or opharynx is clear without lesions. Neck: Supple without lymphadenopathy. Trachea midline. Extremities: Right lower extremity with wound VAC in place with good suction. TMA site noted. Neurological: No focal deficits. Strength and sensation are grossly intact. - Labs CBC & Chem 7: 10/11/21 12:47 10/11/21 12:47 Labs: Abnormal Lab Results - Last 24 Hours (Table) 10/13/21 10/13/21 10/14/21 Range/Units 16:09 21:11 07:46 POC Glucose (mg/dL) 157 H 145 H 167 H (75-99) mg/dL 10/14/21 Range/Units 11:38 POC Glucose (mg/dL) 121 H (75-99) mg/dL Microbiology - Last 24 Hours (Table) 10/11/21 16:10 Gram Stain - Final Foot - Right Wound Culture - Final Assessment and Plan Assessment: 1. Postop day #3 for right lower extremity transmetatarsal amputation and wound VAC placement 2. Chronic foot osteomyelitis and deep tissue abscess 3. History of end-stage renal disease on hemodialysis Plan: 1. Consult PT OT for evaluation and treatment 2. Consult case management for discharge placement home care versus rehab, patient also to be discharged home with wound VAC 3. Await final culture and recommendations on antibiotic treatment from infectious disease 4. Anticipate discharge within the next 24-48 hours The impression and plan of care has been dictated as directed. I performed a history and examination of this patient, discussed the same with the dictator. I agree with the dictator's note ,documented as a scribe. Any additional findings or plans will be noted.
--- NOTE | 2021-10-14 14:30 | PN ---
PROGRESS NOTE Patient is seen for followup for end-stage renal disease. Patient is comfortable. He denies any significant complaints. He is maintained on a Thursday, Thursday, Thursday schedule. He came in with right foot wound and status post amputation of the fifth metatarsal with wound VAC on October 11. PHYSICAL EXAMINATION: On examination today, blood pressure 119/64, heart rate 66 per minute. He is afebrile. Examination of the heart S1, S2. Examination of the lungs, decreased breath sounds at the bases. Abdomen is soft, nontender. Examination of lower extremities shows no significant edema. BELT MA[employer]ER exam grossly intact. LAB: Labs are not available from today. Last labs on October 11 show potassium of 3.7. ASSESSMENT: 1. End-stage renal disease, on hemodialysis on a Thursday, Thursday, Thursday schedule. 2. Right foot wound status post amputation of fifth metatarsal, maintained on antibiotics. 3. Chronic kidney disease mineral bone disorder. 4. Anemia with evidence of iron deficiency maintained on IV iron. PLAN: Continue hemodialysis on a Thursday, Thursday, Thursday schedule. MMODL / IJN: [id number] /
--- NOTE | 2021-10-14 15:18 | P.PN ---
Subjective Progress Note Date: 10/14/21 This is a 76-year-old patient of Dr. Vidales'massiel with past medical history of end-stage renal disease on hemodialysis Thursday through a left arm fistula, diabetes mellitus type 2, hypertension, hyperlipidemia, hypothyroidism, anemia of chronic disease, and remote history of tobacco use. Patient is a long-term patient in the wound care center with chronic wounds to the right foot. Patient was recently revascularized. Patient presented to the hospital for a scheduled amputation of the right metatarsal with application of negative pressure wound VAC and antibiotics. 10/12: This is postoperative day 1, patient has negative pressure wound VAC in place. Patient states that his pain is well-controlled. No complaints or concerns at this time. Denies any shortness of breath, chest pain, nausea or vomiting. Patient remains afebrile, heart rate 87, respirations 18, blood pressure 130/69 pulse ox is 96% on room air. Did receive 12.7, hemoglobin 10.2, BUN 41, creatinine 5.38. He is scheduled for dialysis on Thursday. 10/13: This is postop day 2. Patient signed a pressure wound VAC in place. Patient states that his pain is under control. No complaints at this time. Patient is found resting comfortably in bed in no acute distress. Patient did have episode of confusion overnight. However this morning he has alert and able to answer questions appropriately. Patient is complaining of constipation which we will start lactulose 1 dose. Patient had dialysis yesterday since it was missed on Thursday. We will continue with his Thursday schedule. Patient will return to [facility] hopefully Thursday. 10/14: Patient has wound VAC in place to the right foot. Infectious disease is following and waiting for wound culture results. Patient is confused today. He is on hemodialysis Thursday. Blood sugars are running between 117 and 167. He's been afebrile, heart rate 66, blood pressure 119/64 and pulse ox 100% on room air. Consults for PT and OT have been added in and discharge plan is for [facility]. Despite a probable discharge tomorrow. REVIEW OF SYSTEMS Constitutional: No fever, no chills, no night sweats. No weight change. No weakness, fatigue or lethargy. No daytime sleepiness. EENT: No headache. No blurred vision or double vision, no loss of vision. No loss of Hearing, no ringing in the ears, no dizziness. No nasal drainage or congestion. No epistaxis. No sore throat. Lungs: No shortness of breath, cough, no sputum production. No wheezing. Cardiovascular: No chest pain, no lower extremity edema. No palpitations. No paroxysmal nocturnal dyspnea. No orthopnea. No lightheadedness or dizziness. No syncopal episodes. Abdominal: No abdominal pain. No nausea, vomiting. No diarrhea. No constipation. No bloody or tarry stools.. No loss of appetite. Genitourinary: No dysuria, increased frequency, urgency. No urinary retention. Musculoskeletal: No myalgias. No muscle weakness, no gait dysfunction, no frequent falls. No back pain. No neck pain. Integumentary: Reported wounds, no lesions. No rash or pruritus. No unusual bruising. No change in hair or nails. Neurologic: No aphasia. No facial droop. No noted confusion. No head injury. No headache. No paralysis. No paresthesia. Psychiatric: No depression. No anxiety. No mood swings. Endocrine: No abnormal blood sugars. No weight change. No excessive sweating or thirst. No cold intolerance. PHYSICAL EXAMINATION Gen: This is a 76-year-old black male resting in bed and appears to be in no acute distress. HEENT: Head is atraumatic, normocephalic. Pupils equal, round. Sclerae is anicteric. NECK: Supple. No JVD. No lymphadenopathy. No thyromegaly. LUNGS: Clear to auscultation. No wheezes or rhonchi. No intercostal retractions. HEART: Regular rate and rhythm. Systolic murmur. ABDOMEN: Soft. Bowel sounds are present. No masses. No tenderness. EXTREMITIES: No pedal edema. No calf tenderness. Negative pressure wound VAC to the right metatarsal indications. Fistula left upper arm. NEUROLOGICAL: Patient is awake, alert and oriented to person. ASSESSMENT AND PLAN 1. Right transmetatarsal amputation related to Gangrene of the right foot postop day 3. Patient currently has a negative pressure wound VAC in place., Antibiotics with Zosyn 2. Acute on chronic diabetic and peripheral vascular disease ulcers to the rig ht foot with worsening condition. Consult with Dr. Shane appreciated. Wound culture and blood cultures in progress. 3. End-stage renal disease on hemodialysis Thursday schedule. Consult with Dr. Oropeza, continue PhosLo, 4. Diabetes mellitus type 2 insulin requiring. Continue NovoLog scale before meals and at bedtime, 5. Hyperlipidemia. Continue atorvastatin 40 mg at bedtime 6. Chronic atrial fibrillation. Continue Lopressor 25 mg twice daily. Resume Xarelto once cleared by surgery 7. Benign prostatic hypertrophy. Continue Flomax 0.4 mg daily. 8. Hypothyroidism. Continue levothyroxine 150 g daily. 9. Hypertension. Continue hydralazine 25 mg 3 times daily. 10. Glaucoma. Continue eye drops. 11. Constipation. Lactulose 30 mg 1 dose 12. DVT prophylaxis. Xarelto. 13. GI prophylaxis. Protonix. Patient will be admitted to the hospital for a minimum of 2 night stay. DISCHARGE PLAN Return to [facility] possibly Thursday. Impression and plan of care have been directed as dictated by the signing physician. Carmina Collins nurse practitioner acting as scribe for signing physician. Objective - Vital Signs Vital signs: Vital Signs Temp 97.4 F L 10/14/21 08:00 Pulse 66 10/14/21 08:00 Resp 18 10/14/21 08:00 BP 119/64 10/14/21 08:00 Pulse Ox 95 10/14/21 08:17 Intake & Output 10/13/21 10/14/21 10/14/21 18:59 06:59 18:59 Intake Total 600 Balance 600 Intake: IV 100 Sodium Ferric Gluconat- 100 Sucrose 125 mg In Sodium Chloride 0.9% 100 ml @ 100 mls/hr IVPB DAILY [facility] Rx#:[id number] Oral 500 Other: Voiding Method Diaper Diaper Diaper # Voids 0 # Bowel Movements 1 - Labs CBC & Chem 7: 10/11/21 12:47 10/11/21 12:47 Labs: Abnormal Lab Results - Last 24 Hours (Table) 10/13/21 10/13/21 10/13/21 Range/Units 11:28 16:09 21:11 POC Glucose (mg/dL) 117 H 157 H 145 H (75-99) mg/dL 10/14/21 Range/Units 07:46 POC Glucose (mg/dL) 167 H (75-99) mg/dL Microbiology - Last 24 Hours (Table) 10/11/21 16:10 Gram Stain - Final Foot - Right Wound Culture - Final
[2021-10-14 16:32] LABS: Glucose,Whole Blood 147 mg/dL (75-99)
--- NOTE | 2021-10-14 17:41 | PN ---
PROGRESS NOTE DATE OF SERVICE: 10/14/2021 REASON FOR FOLLOWUP: Right diabetic foot infection. INTERVAL HISTORY: Patient is afebrile. The patient is currently breathing comfortably. No chest pain, shortness of breath or cough. No abdominal pain. . PHYSICAL EXAMINATION: On examination, blood pressure 119/64, pulse 86, temperature 97.4. The patient is 100% on room air. General description is an elderly male lying in bed in no distress. Respiratory system: Unlabored breathing, clear to auscultation anteriorly. Heart S1, S2. Regular rate and rhythm. Abdomen soft, no tenderness. Right transmetatarsal amputation currently covered with a wound VAC. LABS: No new labs have been obtained today. Cultures remain to be negative. DIAGNOSTIC IMPRESSION AND PLAN: Patient with right diabetic foot infection, resolved. status post transmetatarsal amputation. Patient is currently afebrile. Culture has been negative. If remains to be negative, recommend no antibiotic on discharge. Continue local wound care with wound VAC. Continue supportive care. MMODL / IJN: [id number] /
[2021-10-14 20:03] LABS: Glucose,Whole Blood 133 mg/dL (75-99)
[2021-10-14] MEDS: MELATONIN 5 MG TABLET PO SCH (21:52)
[2021-10-14] MEDS: MORPHINE SULFATE 2 MG/ML SYRINGE IVP PRN (21:52)
[2021-10-14] MEDS: ATORVASTATIN 40 MG TAB PO SCH (21:53)
[2021-10-15] MEDS: MORPHINE SULFATE 2 MG/ML SYRINGE IVP PRN (02:12)
[2021-10-15] MEDS: HYDROcodone/APAP 5-325MG 1 EACH TAB PO PRN (02:55)
[2021-10-15 07:13] LABS: Glucose,Whole Blood 111 mg/dL (75-99)
[2021-10-15] MEDS: INSULIN ASPART (NovoLOG) 100 UNIT/ML VIAL SQ SCH ×2 (07:27→13:22)
[2021-10-15] MEDS: LEVOTHYROXINE 75 MCG TAB PO SCH (07:35)
--- NOTE | 2021-10-15 09:22 | P.DS ---
Providers Date of admission: 10/12/21 13:42 Attending physician: Lis Mota DO Consults: 10/11/21 17:28 Consult Physician Urgent Consulting Provider: Andrade Walter Consult Reason/Comments: MEDICAL MANAGEMENT Do you want consulting provider notified?: Yes 10/11/21 17:35 Consult Physician Routine Consulting Provider: Nhung Oropeza Consult Reason/Comments: esrd Do you want consulting provider notified?: Yes 10/11/21 17:41 Consult Physician Routine Consulting Provider: Mónica Lynn Consult Reason/Comments: right foot infection, esrd Do you want consulting provider notified?: Yes Primary care physician: [facility] Course: This is a 76-year-old male with the history of significant right lower extremity wound that is previously been debrided who was found to have worsening odor and drainage with concerns of infection. Patient recently had revascularization done and presented for outpatient transmetatarsal amputation of the foot with wound VAC placement. The patient was admitted and seen by infectious disease for recommendations on antibiotics. Should has been covered with Zosyn. At this time infectious diseases signing off and states cultures are negative growth and no need for home antibiotic since infected area has been amputated. The patient has a wound VAC in place with good suction. He has been afebrile. He is denying any pain to the right lower extremity. He is having some confusion this morning. Believes he has had to [facility], however patient did come from [facility] before hospitalization. Plan is for discharge today back to [facility] for continued rehabilitation. Physical exam: General appearance: The patient is alert, oriented, in no acute distress. HET: Head is normocephalic and atraumatic. Pupils are equal and reactive. Neck: Supple without lymphadenopathy. Trachea midline.. Extremities: Right lower extremity with TMA site, wound VAC in place with good suction. Patient is able to move the right lower extremity. There is no swelling. It is warm to the touch, with good capillary refill. Neurological: No focal deficits. Alert and oriented to self. Procedures: Right transmetatarsal amputation Patient Condition at Discharge: Stable Plan - Discharge Summary Discharge Rx Participant: Yes New Discharge Prescriptions: New HYDROcodone/APAP 5-325MG [[place] 5-325] 1 each PO Q6HR PRN #12 tab PRN Reason: Pain Continue Folic Acid 0.4 mg PO DAILY Calcium Acetate [PhosLo] 667 mg PO AC-TID hydrALAZINE HCL [Apresoline] 25 mg PO TID tab Tamsulosin [Flomax] 0.4 mg PO DAILY #30 cap.er.24h Atorvastatin [Lipitor] 40 mg PO HS tab Metoprolol Tartrate [Lopressor] 25 mg PO BID tab Insuln Asp Prt/Insulin Aspart [NovoLOG MIX 70-30 VIAL] 4 unit SQ AC-BID #1 vial Midodrine [ProAmatine] 5 mg PO BID PRN PRN Reason: DIALYSIS DAYS Rivaroxaban [Xarelto] 15 mg PO DAILY Melatonin 5 mg PO HS tablet INSULIN ASPART (NovoLOG) [NovoLOG (formulary)] 0 unit SQ ACHS PRN PRN Reason: Blood Sugar - High Levothyroxine Sodium [Synthroid] 150 mcg PO DAILY Latanoprost [Xalatan 0.005%] 1 drop BOTH EYES HS Fenofibrate Nanocrystallized [Fenofibrate] 145 mg PO DAILY Acetaminophen Tab [Tylenol] 650 mg PO Q6HR PRN tab PRN Reason: Mild Pain Or Fever > 100.5 Na Phos,M-B/Na Phos,Di-Ba [Fleet Adult] 133 ml RECTAL ONCE PRN PRN Reason: Constipation bisacodyL [Dulcolax] 10 mg RECTAL DIRECTED PRN PRN Reason: Constipation Magnesium Hydroxide [Milk of Magnesia Concentrate] 30 ml PO DAILY PRN PRN Reason: after 2 days w/ no BM Pantoprazole [Protonix] 40 mg PO DAILY Changed Furosemide [Lasix] 80 mg PO DAILY #0 Discontinued Ertapenem [INVanz] 0.5 gm IVPB Q24H #40 each Heparin Iv Flush 1 dose IV DAILY Dakins 1 applic TOPICAL DAILY HYDROcodone/APAP 7.5-325MG [Larkspur 7.5-325] 1 each PO Q6HR PRN #12 tab PRN Reason: Pain Discharge Medication List Folic Acid 0.4 mg PO DAILY 11/04/19 [History] Calcium Acetate [PhosLo] 667 mg PO AC-TID 08/04/20 [History] Atorvastatin [Lipitor] 40 mg PO HS tab 08/07/20 [Rx] Insuln Asp Prt/Insulin Aspart [NovoLOG MIX 70-30 VIAL] 4 unit SQ AC-BID #1 vial 08/07/20 [Rx] Metoprolol Tartrate [Lopressor] 25 mg PO BID tab 08/07/20 [Rx] Tamsulosin [Flomax] 0.4 mg PO DAILY #30 cap.er.24h 08/07/20 [Rx] hydrALAZINE HCL [Apresoline] 25 mg PO TID tab 08/07/20 [Rx] Fenofibrate Nanocrystallized [Fenofibrate] 145 mg PO DAILY 08/20/21 [History] Latanoprost [Xalatan 0.005%] 1 drop BOTH EYES HS 08/20/21 [History] Midodrine [ProAmatine] 5 mg PO BID PRN 08/20/21 [History] Rivaroxaban [Xarelto] 15 mg PO DAILY 08/20/21 [History] Acetaminophen Tab [Tylenol] 650 mg PO Q6HR PRN tab 08/28/21 [Rx] Melatonin 5 mg PO HS tablet 08/28/21 [Rx] INSULIN ASPART (NovoLOG) [NovoLOG (formulary)] 0 unit SQ ACHS PRN 09/09/21 [History] Magnesium Hydroxide [Milk of Magnesia Concentrate] 30 ml PO DAILY PRN 09/09/21 [History] Na Phos,M-B/Na Phos,Di-Ba [Fleet Adult] 133 ml RECTAL ONCE PRN 09/09/21 [History] bisacodyL [Dulcolax] 10 mg RECTAL DIRECTED PRN 09/09/21 [History] Levothyroxine Sodium [Synthroid] 150 mcg PO DAILY 09/27/21 [History] Pantoprazole [Protonix] 40 mg PO DAILY 09/27/21 [History] Furosemide [Lasix] 80 mg PO DAILY #0 10/15/21 [Rx] HYDROcodone/APAP 5-325MG [Larkspur 5-325] 1 each PO Q6HR PRN #12 tab 10/15/21 [Rx] Follow up Appointment(s)/Referral(s): Andrade Walter MD [Primary Care Provider] - 1 Week (at [facility] ) Lis Mota DO [STAFF PHYSICIAN] - 1 Week [facility] [NON-STAFF] - 1 Week Activity/Diet/Wound Care/Special Instructions: Wound VAC to be changed every 3 days. Patient to follow-up with wound care 1 week for further wound management Discharge Disposition: TRANSFER TO SNF/ECF
[2021-10-15] MEDS: hydrALAZINE HCL 25 MG TAB PO SCH (10:02)
[2021-10-15] MEDS: METOPROLOL TARTRATE 25 MG TAB PO SCH (10:02)
[2021-10-15] MEDS: TAMSULOSIN 0.4 MG CAP.ER.24H PO SCH (10:03)
[2021-10-15] MEDS: PANTOPRAZOLE 40 MG TABLET PO SCH (10:03)
[2021-10-15] MEDS: SODIUM FERRIC GLUCONAT-SUCROSE 125 MG in SODIUM CHLORIDE 0.9% 100 ML IVPB SCH (10:13)
[2021-10-15] MEDS: PIPERACILLIN-TAZOBACTAM 3.375 GM in SODIUM CHLORIDE 0.9% 100 ML IVPB SCH (10:19)
--- NOTE | 2021-10-15 13:41 | P.PN ---
Subjective Progress Note Date: 10/15/21 This is a 76-year-old patient of Dr. Vidales'massiel with past medical history of end-stage renal disease on hemodialysis Thursday through a left arm fistula, diabetes mellitus type 2, hypertension, hyperlipidemia, hypothyroidism, anemia of chronic disease, and remote history of tobacco use. Patient is a long-term patient in the wound care center with chronic wounds to the right foot. Patient was recently revascularized. Patient presented to the hospital for a scheduled amputation of the right metatarsal with application of negative pressure wound VAC and antibiotics. 10/12: This is postoperative day 1, patient has negative pressure wound VAC in place. Patient states that his pain is well-controlled. No complaints or concerns at this time. Denies any shortness of breath, chest pain, nausea or vomiting. Patient remains afebrile, heart rate 87, respirations 18, blood pressure 130/69 pulse ox is 96% on room air. Did receive 12.7, hemoglobin 10.2, BUN 41, creatinine 5.38. He is scheduled for dialysis on Thursday. 10/13: This is postop day 2. Patient signed a pressure wound VAC in place. Patient states that his pain is under control. No complaints at this time. Patient is found resting comfortably in bed in no acute distress. Patient did have episode of confusion overnight. However this morning he has alert and able to answer questions appropriately. Patient is complaining of constipation which we will start lactulose 1 dose. Patient had dialysis yesterday since it was missed on Thursday. We will continue with his Thursday schedule. Patient will return to [facility] hopefully Thursday. 10/14: Patient has wound VAC in place to the right foot. Infectious disease is following and waiting for wound culture results. Patient is confused today. He is on hemodialysis Thursday. Blood sugars are running between 117 and 167. He's been afebrile, heart rate 66, blood pressure 119/64 and pulse ox 100% on room air. Consults for PT and OT have been added in and discharge plan is for [facility]. Despite a probable discharge tomorrow. 10/15: Patient continues to be confused today. He is prepared for discharge back to [facility] today, medication reconciliation has been reviewed. Remains with a wound VAC in place which will be continued at [facility]. Lasix will be resumed at the group home and [facility]. No plan for antibiotics at discharge per Dr. Lynn. Plan is to maintain right femoral line which was placed by Dr. Don. REVIEW OF SYSTEMS Constitutional: No fever, no chills, no night sweats. No weight change. No weakness, fatigue or lethargy. No daytime sleepiness. EENT: No headache. No blurred vision or double vision, no loss of vision. No loss of Hearing, no ringing in the ears, no dizziness. No nasal drainage or congestion. No epistaxis. No sore throat. Lungs: No shortness of breath, cough, no sputum production. No wheezing. Cardiovascular: No chest pain, no lower extremity edema. No palpitations. No paroxysmal nocturnal dyspnea. No orthopnea. No lightheadedness or dizziness. No syncopal episodes. Abdominal: No abdominal pain. No nausea, vomiting. No diarrhea. No constipation. No bloody or tarry stools.. No loss of appetite. Genitourinary: No dysuria, increased frequency, urgency. No urinary retention. Musculoskeletal: No myalgias. No muscle weakness, no gait dysfunction, no frequent falls. No back pain. No neck pain. Integumentary: Reported wounds, no lesions. No rash or pruritus. No unusual bruising. No change in hair or nails. Neurologic: No aphasia. No facial droop. noted confusion. No head injury. No headache. No paralysis. No paresthesia. Psychiatric: No depression. No anxiety. No mood swings. Endocrine: No abnormal blood sugars. No weight change. PHYSICAL EXAMINATION Gen: This is a 76-year-old black male resting in bed and appears to be in no acute distress. HEENT: Head is atraumatic, normocephalic. Pupils equal, round. Sclerae is anicteric. NECK: Supple. No JVD. No lymphadenopathy. No thyromegaly. LUNGS: Clear to auscultation. No wheezes or rhonchi. No intercostal re tractions. HEART: Regular rate and rhythm. Systolic murmur. ABDOMEN: Soft. Bowel sounds are present. No masses. No tenderness. EXTREMITIES: No pedal edema. No calf tenderness. Negative pressure wound VAC to the right metatarsal indications. Fistula left upper arm. NEUROLOGICAL: Patient is awake, alert and oriented to person. Patient is confused. ASSESSMENT AND PLAN 1. Right transmetatarsal amputation related to Gangrene of the right foot postop day 3. Patient currently has a negative pressure wound VAC in place., Antibiotics with Zosyn 2. Acute on chronic diabetic and peripheral vascular disease ulcers to the right foot with worsening condition. Consult with Dr. Shane bustamante. Wound culture and blood cultures in progress. 3. End-stage renal disease on hemodialysis Thursday schedule. Consult with Dr. Oropeza, continue PhosLo, 4. Diabetes mellitus type 2 insulin requiring. Continue NovoLog scale before meals and at bedtime, 5. Hyperlipidemia. Continue atorvastatin 40 mg at bedtime 6. Chronic atrial fibrillation. Continue Lopressor 25 mg twice daily. Resume Xarelto once cleared by surgery 7. Benign prostatic hypertrophy. Continue Flomax 0.4 mg daily. 8. Hypothyroidism. Continue levothyroxine 150 g daily. 9. Hypertension. Continue hydralazine 25 mg 3 times daily. 10. Glaucoma. Continue eye drops. 11. Constipation. Lactulose 30 mg 1 dose 12. DVT prophylaxis. Xarelto. 13. GI prophylaxis. Protonix. DISCHARGE PLAN Return to [facility] Impression and plan of care have been directed as dictated by the signing physician. Carmina Collins nurse practitioner acting as scribe for signing physician. Objective - Vital Signs Vital signs: Vital Signs Temp 97.5 F L 10/15/21 07:45 Pulse 69 10/15/21 07:45 Resp 20 10/15/21 07:45 BP 113/67 10/15/21 07:45 Pulse Ox 97 10/15/21 07:45 Intake & Output 10/14/21 10/15/21 10/15/21 18:59 06:59 18:59 Intake Total 1080 Output Total 1999 Balance -1999 1080 Intake: Intake, IV Titration 100 Amount Piperacillin-Tazobactam 3 100 .375 gm In Sodium Chloride 0.9% 100 ml @ 25 mls/hr IVPB Q12HR [facility] Rx #:[id number] Oral 980 Output: Hemodialysis 1999 Other: Voiding Method Diaper Diaper Diaper # Voids 0 # Bowel Movements 1 1 - Labs CBC & Chem 7: 10/11/21 12:47 10/11/21 12:47 Labs: Abnormal Lab Results - Last 24 Hours (Table) 10/14/21 10/14/21 10/14/21 Range/Units 11:38 16:30 20:01 POC Glucose (mg/dL) 121 H 147 H 133 H (75-99) mg/dL 10/15/21 Range/Units 07:11 POC Glucose (mg/dL) 111 H (75-99) mg/dL Microbiology - Last 24 Hours (Table) 10/11/21 16:10 Gram Stain - Final Foot - Right Wound Culture - Final
--- NOTE | 2021-10-15 14:09 | PN ---
PROGRESS NOTE DATE OF SERVICE: 10/15/2021 REASON FOR FOLLOWUP: Right diabetic foot infection status post amputation, transmetatarsal. INTERVAL HISTORY: Patient is afebrile. The patient is slightly upset for the way the Covid test was done to him. The patient denies any chest pain, shortness of breath or cough. No abdominal pain. No pain to the right lower extremity area. EXAMINATION: Blood pressure 113/67, pulse of 66, temperature 97.5, he is 97% on room air. General description is an elderly male lying in bed in no distress. Respiratory system: Unlabored breathing, clear to auscultation anteriorly. Heart S1, S2. Regular rate and rhythm. Abdomen soft, no tenderness. Right foot is currently covered with LABORATORY DATA: negative. DIAGNOSTIC IMPRESSION AND PLAN: Patient with right foot nonhealing wound concerning in this patient with underlying status post amputation with infected part removed. Culture negative. Patient no fever or elevated white count. Received adequate antibiotic perioperatively. Hence, no antibiotic on discharge. Discussed with the admitting team. MMODL / IJN: [id number] /
--- NOTE | 2021-10-15 14:30 | PN ---
PROGRESS NOTE Patient is seen for followup for end-stage renal disease. This morning he is confused. There are plans for possible discharge back to rehab. Patient's mentation has been fluctuating with occasional full orientation and occasional confusion. This is apparently not far from his baseline. PHYSICAL EXAMINATION: On examination today, blood pressure was 113/67, heart rate 69 per minute. He is afebrile. Examination of the heart S1, S2. Examination of the lungs, bilateral breath sounds are heard. Decreased breath sounds at the bases. Abdomen is soft, nontender. Examination of lower extremities shows no significant edema. Patient has right forefoot amputation with wound VAC. LABS: No recent labs are available. Last creatinine was 5.3 and potassium 3.7 on 10/11/2021. ASSESSMENT: 1. End-stage renal disease, on hemodialysis on a Thursday, Thursday, Thursday schedule. We will plan for hemodialysis again tomorrow. 2. Anemia of chronic disease. 3. Chronic kidney disease mineral bone disorder. 4. Right foot wound status post amputation of fifth metatarsal, maintained on antibiotics. It appears that patient has a forefoot amputation. 5. Anemia with iron deficiency, maintained on IV iron. PLAN: Hemodialysis in a.m. MMODL / IJN: [id number] /
[2021-10-15 14:55] VITALS: BP 136/73; PULSE 83; RESP 18; TEMP 97.9
--- NOTE | 2021-10-18 08:30 | CDI ---
Documentation Clarification Form Date: 10/18/21 From: Jane Torres Admit Date: 10/14/2021 01:38:00 PM Patient Name: Lloyd Baig Visit Number: [id number] Discharge Date: 10/15/2021 03:19:00 PM ATTENTION: The Clinical Documentation Specialists (CDI) and [facility] Coding Staff appreciate your assistance in clarifying documentation. Please respond to the clarification below the line at the bottom and electronically sign. The CDI & [facility] Coding staff will review the response and follow-up if needed. Please note: Queries are made part of the Legal Health Record. If you have any questions, please contact the author of this message via ITS. Dr. 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 Additional clarification regarding the procedure is requested. 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 No pathology. Treatment: Per op- At the midfoot an incision was made overlying the metatarsal bone and carried down to the medial and lateral sides of the foot. The plantar flap was created and continued laterally to the level of the previous wound. The subcutaneous tissue were dissected with electrocautery. The dissection was carried down to the level of the bone. The bones were transected with an oscillating saw. The fifth metatarsal appeared necrotic and the bony areas throughout without good caliber therefore was fully resected. The tarsal bones were free of any osteomyelitis visually the bones looked healthy. The area was then copiously irrigated. Further portions of necrotic tissue of the lateral portion of the plantar and dorsum of the foot were resected until healthy- appearing tissues. Please clarify the following: if the transmetarsal involved the entire right foot or only 5th metatarsal: [ ] Transmetatarsal right foot [ ] Transmetatarsal right 5th metatarsal [ ] Please specify TMA right foot entire 5th metatarsal ray amputation also MTDD
== END 2021-10-15 15:19 | DRG 617 ==
LOC: OR 11:43 → EDSTATUS 13:30 → 4SSUR 16:06 → 3SCARD 16:31 → 4SSUR 17:03 → OR 10-12 13:42 → 4SSUR 10-12 13:42 → OBSVTOIN 10-14 13:38
PROVIDERS: ADMIT Surgery; ATTEND Surgery
PROC: 0Y6M0ZD Detachment at Right Foot, Partial 4th Ray, Open Approach (ICD-10-PCS; principal; 2021-10-11 13:30)
PROC: 0Y6M0ZB Detachment at Right Foot, Partial 2nd Ray, Open Approach (ICD-10-PCS; principal; 2021-10-11 13:30)
PROC: 0Y6M0ZC Detachment at Right Foot, Partial 3rd Ray, Open Approach (ICD-10-PCS; principal; 2021-10-11 13:30)
PROC: 0Y6X0Z0 Detachment at Right 5th Toe, Complete, Open Approach (ICD-10-PCS; principal; 2021-10-11 13:30)
PROC: 0Y6M0Z9 Detachment at Right Foot, Partial 1st Ray, Open Approach (ICD-10-PCS; principal; 2021-10-11 13:30)
PROC: 5A1D70Z Performance of Urinary Filtration, Intermittent, Less than 6 Hours Per Day (ICD-10-PCS; 2021-10-12)
DX: E11.69 Type 2 diabetes mellitus with other specified complication (principal); E11.52 Type 2 diabetes mellitus with diabetic peripheral angiopathy with gangrene; I12.0 Hypertensive chronic kidney disease with stage 5 chronic kidney disease or end stage renal disease; I48.20 Chronic atrial fibrillation, unspecified; M86.671 Other chronic osteomyelitis, right ankle and foot; I70.261 Atherosclerosis of native arteries of extremities with gangrene, right leg; D63.1 Anemia in chronic kidney disease; E83.9 Disorder of mineral metabolism, unspecified; E11.621 Type 2 diabetes mellitus with foot ulcer; N18.6 End stage renal disease; E11.22 Type 2 diabetes mellitus with diabetic chronic kidney disease; L97.514 Non-pressure chronic ulcer of other part of right foot with necrosis of bone; E11.628 Type 2 diabetes mellitus with other skin complications; Z99.2 Dependence on renal dialysis; Z79.4 Long term (current) use of insulin; Z20.822 Contact with and (suspected) exposure to COVID-19; E78.5 Hyperlipidemia, unspecified; N40.0 Benign prostatic hyperplasia without lower urinary tract symptoms; D50.9 Iron deficiency anemia, unspecified; K59.00 Constipation, unspecified; H40.9 Unspecified glaucoma; E03.9 Hypothyroidism, unspecified; Z79.01 Long term (current) use of anticoagulants; Z79.890 Hormone replacement therapy; Z79.899 Other long term (current) drug therapy; Z86.19 Personal history of other infectious and parasitic diseases; Z87.19 Personal history of other diseases of the digestive system; Z86.010 Personal history of colon polyps; Z87.891 Personal history of nicotine dependence; Z98.890 Other specified postprocedural states; Z82.49 Family history of ischemic heart disease and other diseases of the circulatory system; Z83.3 Family history of diabetes mellitus; Z82.69 Family history of other diseases of the musculoskeletal system and connective tissue
CPT/HCPCS: 82565; 82728; 83540; 83550; 84132; 84520; 85025; 87070; 87075; 87205; 87635; 90935; 94760

== ENCOUNTER 2021-10-22 13:30 | Inpatient (IN) | payer MEDICARE ==
[2021-10-22 14:11] LABS: VBG PH 7.5 (7.31-7.41)
[2021-10-22 14:22] LABS: Albumin 3.1 g/dL (3.5-5.0); Calcium 8.8 mg/dL (8.4-10.2); Magnesium 1.9 mg/dL (1.6-2.3); Potassium 3.1 mmol/L (3.5-5.1); Total Bilirubin 6.5 mg/dL (0.2-1.3); Total Protein 7.1 g/dL (6.3-8.2)
--- NOTE | 2021-10-22 14:23 | XR ---
EXAMINATION TYPE: XR chest 1V portable DATE OF EXAM: 10/22/2021 COMPARISON: Chest x-ray dated 08/04/2020 HISTORY: Altered mental status TECHNIQUE: Single frontal view of the chest is obtained. FINDINGS: Patient is rotated. Apical pleural thickening is noted on the right, right jugular central venous catheter has been removed. There is no focal air space opacity, pleural effusion, or pneumotho rax seen. The cardiac silhouette size is enlarged, stable. Aorta is dense. The osseous structures a re intact. IMPRESSION: Stable cardiomegaly.
--- NOTE | 2021-10-22 14:28 | CT ---
EXAMINATION TYPE: CT brain wo con DATE OF EXAM: 10/22/2021 COMPARISON: 08/04/2020 HISTORY: altered mental status CT DLP: 1099.[address] of the brain was performed. The ventricles, basal cisterns and sulci overlying the cerebral convexities demonstrate mild enlargem ent. There is no evidence for intracranial hemorrhage or sulcal effacement. There is decreased attenuation about the periventricular white matter and deep white matter of both c erebral hemispheres, compatible with chronic small vessel ischemia. Differential diagnosis does inclu de demyelination. No mass effects are seen.No midline shift. Osseous calvarium is intact. If symptoms persist consider MRI. IMPRESSION: 1. Age related atrophic and chronic small vessel ischemic change without acute intracranial process s een at this time.
[2021-10-22 14:31] LABS: Lactic Acid, Venous 3.2 mmol/L (0.7-2.0)
[2021-10-22] MEDS ORDERED: DEXTROSE 50% SYRINGE 50 ML IVP STA ×3 (14:34→20:39)
--- NOTE | 2021-10-22 14:34 | ED ---
General Adult HPI - General Source: patient, EMS, RN notes reviewed, old records reviewed Mode of arrival: EMS <Imer Benitez - Last Filed: 10/22/21 14:55> <Josemanuel Colin - Last Filed: 10/22/21 21:43> - General Chief complaint: Altered Mental Status Stated complaint: lethargy Time Seen by Provider: 10/22/21 13:34 - History of Present Illness Initial comments: 76-year-old male from [facility] with confusion. EMS didn't report this is worsened but has been present since the time of discharge her recent hospital admission for right lower extremity midtarsal amputation. Patient was noted to have some confusion according to the medical record as well as family who is at bedside. This is been present since the time of discharge. However they state that he may be slightly worse now. He does have significant past medical history including a 2 fibrillation, diabetes, end-stage renal disease on hemodialysis Thursday. There was no reported fever. No vomiting. EMS did note that the patient appeared somewhat jaundice. (Imer Benitez) - Related Data Home Medications Medication Instructions Recorded Confirmed Folic Acid 0.4 mg PO DAILY@1700 11/04/19 10/22/21 Calcium Acetate [PhosLo] 667 mg PO AC-TID 08/04/20 10/22/21 Fenofibrate Nanocrystallized 145 mg PO DAILY@0800 08/20/21 10/22/21 [Fenofibrate] Latanoprost [Xalatan 0.005%] 1 drop BOTH EYES HS 08/20/21 10/22/21 Midodrine [ProAmatine] 5 mg PO BID PRN 08/20/21 10/22/21 Rivaroxaban [Xarelto] 15 mg PO DAILY@1700 08/20/21 10/22/21 INSULIN ASPART (NovoLOG) [NovoLOG See Protocol SQ ACHS PRN 09/09/21 10/22/21 (formulary)] Magnesium Hydroxide [Milk of 7,200 ml PO DAILY PRN 09/09/21 10/22/21 Magnesia Concentrate] bisacodyL [Dulcolax] 10 mg RECTAL DAILY PRN 09/09/21 10/22/21 Pantoprazole [Protonix] 40 mg PO DAILY@0730 09/27/21 10/22/21 Furosemide [Lasix] 80 mg PO DAILY@0800 10/22/21 10/22/21 HYDROcodone/APAP 5-325MG [[place] 1 tab PO Q6HR PRN 10/22/21 10/22/21 5-325] Insuln Asp Prt/Insulin Aspart 4 unit SQ AC-BID@0800,1700 10/22/21 10/22/21 [NovoLOG MIX 70-30 VIAL] Levothyroxine Sodium [Synthroid] 150 mcg PO DAILY@0630 10/22/21 10/22/21 Liquacel 1 dose PO DIRECTED 10/22/21 10/22/21 Menthol/Zinc Oxide [Calmoseptine 1 applic TOPICAL BID 10/22/21 10/22/21 Ointment] Metoprolol Tartrate [Lopressor] 25 mg PO BID@0800,1700 10/22/21 10/22/21 Sodium Chloride Irrig Solution 20 ml IRRIGATION TID 10/22/21 10/22/21 [Saline 0.9% Irrigation] Tamsulosin [Flomax] 0.4 mg PO DAILY@0800 10/22/21 10/22/21 hydrALAZINE HCL [Apresoline] 25 mg PO TID@0600,1400,2200 10/22/21 10/22/21 Previous Rx's Medication Instructions Recorded Atorvastatin [Lipitor] 40 mg PO HS tab 08/07/20 Acetaminophen Tab [Tylenol] 650 mg PO Q6HR PRN tab 08/28/21 Melatonin 5 mg PO HS tablet 08/28/21 Allergies Allergy/AdvReac Type Severity Reaction Status Date / Time No Known Allergies Allergy Verified 10/11/21 12:29 Review of Systems ROS Other: All systems not noted in ROS Statement are negative. <Imer Benitez - Last Filed: 10/22/21 14:55> ROS Other: All systems not noted in ROS Statement are negative. <Josemanuel Colin - Last Filed: 10/22/21 21:43> ROS Statement: Those systems with pertinent positive or pertinent negative responses have been documented in the HPI. Past Medical History Past Medical History: Atrial Fibrillation, Diabetes Mellitus, Dialysis, Eye Disorder, Hyperlipidemia, Hypertension, Prostate Disorder, Renal Disease, Skin Disorder, Thyroid Disorder, Vascular Disorder Additional Past Medical History / Comment(s): hemodialysis M-W-F, anemia, legs sometimes go out and buckle per pt, wounds right foot, PICC line, dialysis fistula left upper arm History of Any Multi-Drug Resistant Organisms: ESBL Date of last positivie culture/infection: 08/23/21 ESBL E.coli MDRO Source:: Right Foot Past Surgical History: No Surgical Hx Reported Additional Past Surgical History / Comment(s): placement of peritoneal dialysis catheter and repair of umbilical hernia 07/2017, colonoscopy w/polypectomy, right upper thigh PICC line, Rt foot wound debridement 08-23-21, aortogram & PTBA 10-01-21 Past Anesthesia/Blood Transfusion Reactions: No Reported Reaction Past Psychological History: No Psychological Hx Reported Smoking Status: Former smoker Past Alcohol Use History: None Reported Past Drug Use History: None Reported - Past Family History Father Family Medical History: Myocardial Infarction (NE) Additional Family Medical History / Comment(s): patient has 3 brothers, 1 sister is relatively healthy has chronic back problems patient has 5 children that are healthy with no kidney diabetes or coronary artery disease. Mother Family Medical History: Coronary Artery Disease (CAD), Diabetes Mellitus <Imer Benitez N - Last Filed: 10/22/21 14:55> General Exam General appearance: in no apparent distress, lethargic Head exam: Present: atraumatic, normocephalic Eye exam: Present: PERRL, scleral icterus ENT exam: Present: mucous membranes dry Respiratory exam: Present: decreased breath sounds. Absent: respiratory distress Cardiovascular Exam: Present: regular rate, irregular rhythm GI/Abdominal exam: Present: soft, distended. Absent: tenderness, guarding Extremities exam: Present: other (Right foot status post a petition with wound VAC, dressing is clean dry and intact.) Neurological exam: Present: alert, CN II-XII intact. Absent: oriented X3, motor sensory deficit Skin exam: Present: warm, dry, intact <Imer Benitez N - Last Filed: 10/22/21 14:55> Course <Imer Benitez - Last Filed: 10/22/21 14:55> Vital Signs 10/22/21 10/22/21 10/22/21 13:35 14:26 16:21 Temperature 97.4 F L Pulse Rate 80 86 70 Respiratory 18 18 16 Rate Blood Pressure 88/49 81/42 54/34 O2 Sat by Pulse 99 99 97 Oximetry 10/22/21 10/22/21 10/22/21 16:48 17:02 17:12 Temperature Pulse Rate 78 72 Respiratory Rate Blood Pressure 73/43 70/30 58/33 O2 Sat by Pulse Oximetry 10/22/21 10/22/21 10/22/21 17:17 17:24 17:27 Temperature Pulse Rate 84 Respiratory Rate Blood Pressure 60/37 58/43 O2 Sat by Pulse 88 L 90 L Oximetry 10/22/21 10/22/21 10/22/21 17:30 17:42 18:00 Temperature Pulse Rate 76 73 Respiratory 18 18 Rate Blood Pressure 65/40 70/40 69/42 O2 Sat by Pulse 98 99 Oximetry 10/22/21 10/22/21 10/22/21 18:06 18:36 18:43 Temperature Pulse Rate 76 91 89 Respiratory 18 18 18 Rate Blood Pressure 70/43 84/44 92/46 O2 Sat by Pulse 100 98 Oximetry 10/22/21 10/22/21 10/22/21 18:48 19:03 19:42 Temperature Pulse Rate 89 80 Respiratory 18 16 Rate Blood Pressure 89/58 89/39 95/52 O2 Sat by Pulse 98 96 Oximetry 10/22/21 10/22/21 20:48 21:03 Temperature Pulse Rate 77 90 Respiratory 15 14 Rate Blood Pressure 102/49 87/53 O2 Sat by Pulse 96 95 Oximetry - Reevaluation(s) Reevaluation #1: 10/22/21 1500 Patient's care signed out awaiting laboratory testing and imaging to Dr. Colin. (Imer Benitez) EKG Findings - EKG Comments: EKG Findings:: EKG: Atrial fibrillation rate of 87, low voltage, QRS duration 92, QTC [address] segment elevation. <Imer Benitez - Last Filed: 10/22/21 14:55> Procedures - Central Line Placement Left IJ Consent Obtained: emergent situation Patient Placed on Monitor/Pulse Ox: Yes Prep: mask, gown, gloves Central Line Prep: Chlorhexidine scrub, sterile drapes applied Local Anesthesia Used: Lidocaine 1% Amount of Anesthesia Used (mls): 5 Ultrasound Used for Placement: Yes Central Line Lumen Inserted: triple Bloods Obtained for Lab: No Central Line Position: good blood return, all ports aspirated, flushed, capped, sutured in place with nylon Dressing Applied: Tegaderm Post Procedure X-Ray: tip of catheter in good position Patient Tolerated Procedure: well Complications: none - Sepsis Sepsis Focused Exam #1 Time Sepsis Criteria Met: 15:10 Sepsis Focused Exam Date: 10/22/21 Sepsis Focused Exam Time: 17:00 Sepsis Focused Exam Complete: Yes Vital Signs & RN Notes Reviewed: Yes Capillary Refill: < 2 Seconds: Fingers, Toes Peripheral Pulses: Normal: Radial (R), Radial (L) Skin Color: Jaundice Respiratory Exam: normal lung sounds Cardiovascular Exam: regular rate, normal rhythm <Josemanuel Colin - Last Filed: 10/22/21 21:43> Medical Decision Making - Lab Data Result diagrams: 10/22/21 13:57 10/22/21 13:57 <Imer Benitez - Last Filed: 10/22/21 14:55> - Lab Data Result diagrams: 10/22/21 19:11 10/22/21 16:10 <Josemanuel Colin - Last Filed: 10/22/21 21:43> - Medical Decision Making Patient was signed out to me pending labs and workup. He originally presented with altered mental status and confusion since he was last discharged. He recently had a right lower extremity midtarsal amputation. He has been seeing wound care and has a wound VAC attached. There is been no purulent drainage or pus from the site. No fevers. Confusion has been present since discharge. Sunday fonseca is not jaundice. He does have a history of ESRD on hemodialysis. Patient was signed out to me pending results of labs and imaging. Initial labs did come back while prior physician was here and we both reviewed. Patient has a leukocytosis of 17.4. His elevated coags with an INR greater than 10, PT greater than 130, APTT of 75. Patient is mildly hyponatremic to 131 and hypokalemic to 91. Patient is an elevated BUN/creatinine the setting of ESRD on hemodialysis. He was hypoglycemic when he arrived and was admitted to an amp of D50. Repeat blood sugar was 145. Patient's lactic acidosis of 3.2. He has elevated AST of 348, ALT of 105, alk phos 157. Ammonia is elevated at 57. Pat ient also has an elevated troponin of 0.103. EKG was evaluated and showed no signs of acute ischemia. Patient was administered a small amount of IV fluids. Prior physician to start patient on Zosyn over concern for possible ascending cholangitis. Blood cultures were ordered. Patient met sepsis criteria upon my evaluation of the patient, at approximately 1510. Broad spectrum antibiotics were started, rpt lactate will be obtained. Patient will be cautiously administered IV fluids due to his appearance of mild fluid overloaded state. Therefore he was initially administered a single bolus, followed by a second shortly after prior to central line placement. Sepsis eval was completed. I spoke with patient's family and he is a full code. Mental status is unchanged. He is protecting his airway. CT brain showed no acute intracranial process. Chest x-ray revealed no acute cardiopulmonary process. Right foot xray showed no signs of acute infection or elda involvement. Gall bladder ultrasound revealed gallstones without convincing secondary EVIDENCE FOR ACUTE CHOLECYSTITIS WITH NO INTRAHEPATIC OR EXTRAHEPATIC BILIARY DILATION. THERE IS MILD WALL THICKENING WHICH MAY BE A RESULT OF HEPATOCELLULAR DISEASE. On re-evaluation, patient is hypotensive. He was initially 1 L fluid bolus without improvement. A Second fluid bolus was started but patient remains hypotensive with systolics in the 60s. At this time I did speak with family and they consented to central line placement with vasopressors. See procedure note for details. Patient tolerated the procedure well. He was started on norepinephrine drip. I spoke with the surgery on-call, Dr. Day who agreed that the patient should be transferred to a facility with GI coverage as we do not have that at this time. I spoke with Dr. Jackman who would be the admitting physician who was in agreement this plan as well. Greater than 10 hospitals were contacted by our facility today seeking transfer for GI coverage and all turned down transfer secondary to hospitals being full during the current healthcare crisis. I was unable to find a transfer location for the patient. I did speak with family members regarding this. I made it clear to the patient is in critical condition, septic shock, likely secondary to biliary disease or hepatic disease based on his labs and presenting symptoms. They still wish for the patient remained full code at this time. Norepinephrine drip appears to be helping with his hypotension secondary to septic shock. Patient did have 2 hypoglycemic episodes that responded to D50 hugo uses. On reevaluation, we finally obtained urine output from the [place] that was placed and was cloudy. There is concerned PT which was seen on urinalysis. Shortly after this, patient did have a small bloody bowel movement that was melanotic stool. At this point, the decision was made to administer vitamin K as well as for factor complexed reverses her alto. He'll be empirically administered 1 unit of packed red blood cells. Vancomycin was added over the concern for possible UTI and to obtain better gram-negative coverage for his current septic shock. Q8 hour Zosyn was ordered. Patient was started on a maintenance fluid drip. Supple mental potassium was given. I spoke with family again at bedside and updated them on the patient's condition. I answered all questions that they had. I spoke with general surgery on-call, Dr. Day was consulted. I spoke with Dr. thomas of the ICU who accepted the patient. I spoke again with Dr. Jackman who accepted the patient. Patient was admitted to the ICU in critical condition. Cardiology was consulted for the NSTEMI, secondary to his septic picture. (Josemanuel Colin) - Lab Data Lab Results 10/22/21 10/22/21 10/22/21 Range/Units 13:57 13:57 13:57 WBC 17.4 H (3.8-10.6) k/uL RBC 3.52 L (4.30-5.90) m/uL Hgb 11.4 L (13.0-17.5) gm/dL Hct 32.7 L (39.0-53.0) % MCV 93.0 (80.0-100.0) fL MCH 32.3 (25.0-35.0) pg MCHC 34.7 (31.0-37.0) g/dL RDW 17.9 H (11.5-15.5) % Plt Count 286 (150-450) k/uL MPV 9.1 Neutrophils % (Manual) 92 % Band Neuts % (Manual) 1 % Lymphocytes % (Manual) 3 % Monocytes % (Manual) 4 % Neutrophils # (Manual) 16.10 H (1.3-7.7) k/uL Lymphocytes # (Manual) 0.52 L (1.0-4.8) k/uL Monocytes # (Manual) 0.70 (0-1.0) k/uL Nucleated RBCs 0 (0-0) /100 WBC Manual Slide Review Performed Anisocytosis Slight PT >130.0 H (9.0-12.0) sec INR >10.0 H* (<1.2) APTT 75.3 H (22.0-30.0) sec VBG pH (7.31-7.41) VBG pCO2 (37-51) mmHg VBG HCO3 (24-28) mmol/L Sodium 131 L (137-145) mmol/L Potassium 3.1 L (3.5-5.1) mmol/L Chloride 91 L (98-107) mmol/L Carbon Dioxide 28 (22-30) mmol/L Anion Gap 12 mmol/L BUN 29 H (9-20) mg/dL Creatinine 4.12 H (0.66-1.25) mg/dL Est GFR (CKD-EPI)AfAm 15 (>60 ml/min/1.73 sqM) Est GFR (CKD-EPI)NonAf 13 (>60 ml/min/1.73 sqM) Glucose 39 L* (74-99) mg/dL POC Glucose (mg/dL) (75-99) mg/dL POC Glu Labor Relations Consultant ID Lactic Ac Sepsis Rflx Plasma Lactic Acid Gilberto (0.7-2.0) mmol/L Calcium 8.8 (8.4-10.2) mg/dL Magnesium 1.9 (1.6-2.3) mg/dL Total Bilirubin 6.5 H (0.2-1.3) mg/dL AST 348 H (17-59) U/L ALT 105 H (4-49) U/L Alkaline Phosphatase 157 H (38-126) U/L Ammonia (<30) umol/L Troponin I (0.000-0.034) ng/mL Total Protein 7.1 (6.3-8.2) g/dL Albumin 3.1 L (3.5-5.0) g/dL Urine Color Urine Appearance (Clear) Urine pH (5.0-8.0) Ur Specific [place] (1.001-1.035) Urine Protein (Negative) Urine Glucose (UA) (Negative) Urine Ketones (Negative) Urine Blood (Negative) Urine Nitrite (Negative) Urine Bilirubin (Negative) Urine Urobilinogen (<2.0) mg/dL Ur Leukocyte Esterase (Negative) Urine RBC (0-5) /hpf Urine WBC (0-5) /hpf Urine WBC Clumps (None) /hpf Ur Squamous Epith Cells (0-4) /hpf Urine Bacteria (None) /hpf Urine Yeast (Budding) (None) /hpf Acetaminophen ug/mL Coronavirus (PCR) (Not Detectd) Crossmatch 10/22/21 10/22/21 10/22/21 Range/Units 13:57 13:57 13:58 WBC (3.8-10.6) k/uL RBC (4.30-5.90) m/uL Hgb (13.0-17.5) gm/dL Hct (39.0-53.0) % MCV (80.0-100.0) fL MCH (25.0-35.0) pg MCHC (31.0-37.0) g/dL RDW (11.5-15.5) % Plt Count (150-450) k/uL MPV Neutrophils % (Manual) % Band Neuts % (Manual) % Lymphocytes % (Manual) % Monocytes % (Manual) % Neutrophils # (Manual) (1.3-7.7) k/uL Lymphocytes # (Manual) (1.0-4.8) k/uL Monocytes # (Manual) (0-1.0) k/uL Nucleated RBCs (0-0) /100 WBC Manual Slide Review Anisocytosis PT (9.0-12.0) sec INR (<1.2) APTT (22.0-30.0) sec VBG pH 7.50 H (7.31-7.41) VBG pCO2 38 (37-51) mmHg VBG HCO3 29 H (24-28) mmol/L Sodium (137-145) mmol/L Potassium (3.5-5.1) mmol/L Chloride (98-107) mmol/L Carbon Dioxide (22-30) mmol/L Anion Gap mmol/L BUN (9-20) mg/dL Creatinine (0.66-1.25) mg/dL Est GFR (CKD-EPI)AfAm (>60 ml/min/1.73 sqM) Est GFR (CKD-EPI)NonAf (>60 ml/min/1.73 sqM) Glucose (74-99) mg/dL POC Glucose (mg/dL) (75-99) mg/dL POC Glu Labor Relations Consultant ID Lactic Ac Sepsis Rflx Plasma Lactic Acid Gilberto 3.2 H* (0.7-2.0) mmol/L Calcium (8.4-10.2) mg/dL Magnesium (1.6-2.3) mg/dL Total Bilirubin (0.2-1.3) mg/dL AST (17-59) U/L ALT (4-49) U/L Alkaline Phosphatase (38-126) U/L Ammonia 57 H (<30) umol/L Troponin I 0.103 H* (0.000-0.034) ng/mL Total Protein (6.3-8.2) g/dL Albumin (3.5-5.0) g/dL Urine Color Urine Appearance (Clear) Urine pH (5.0-8.0) Ur Specific [place] (1.001-1.035) Urine Protein (Negative) Urine Glucose (UA) (Negative) Urine Ketones (Negative) Urine Blood (Negative) Urine Nitrite (Negative) Urine Bilirubin (Negative) Urine Urobilinogen (<2.0) mg/dL Ur Leukocyte Esterase (Negative) Urine RBC (0-5) /hpf Urine WBC (0-5) /hpf Urine WBC Clumps (None) /hpf Ur Squamous Epith Cells (0-4) /hpf Urine Bacteria (None) /hpf Urine Yeast (Budding) (None) /hpf Acetaminophen ug/mL Coronavirus (PCR) (Not Detectd) Crossmatch 10/22/21 10/22/21 10/22/21 Range/Units 14:31 14:50 16:10 WBC (3.8-10.6) k/uL RBC (4.30-5.90) m/uL Hgb (13.0-17.5) gm/dL Hct (39.0-53.0) % MCV (80.0-100.0) fL MCH (25.0-35.0) pg MCHC (31.0-37.0) g/dL RDW (11.5-15.5) % Plt Count (150-450) k/uL MPV Neutrophils % (Manual) % Band Neuts % (Manual) % Lymphocytes % (Manual) % Monocytes % (Manual) % Neutrophils # (Manual) (1.3-7.7) k/uL Lymphocytes # (Manual) (1.0-4.8) k/uL Monocytes # (Manual) (0-1.0) k/uL Nucleated RBCs (0-0) /100 WBC Manual Slide Review Anisocytosis PT (9.0-12.0) sec INR (<1.2) APTT (22.0-30.0) sec VBG pH (7.31-7.41) VBG pCO2 (37-51) mmHg VBG HCO3 (24-28) mmol/L Sodium 132 L (137-145) mmol/L Potassium 2.8 L (3.5-5.1) mmol/L Chloride 93 L (98-107) mmol/L Carbon Dioxide 26 (22-30) mmol/L Anion Gap 13 mmol/L BUN 28 H (9-20) mg/dL Creatinine 4.03 H (0.66-1.25) mg/dL Est GFR (CKD-EPI)AfAm 16 (>60 ml/min/1.73 sqM) Est GFR (CKD-EPI)NonAf 14 (>60 ml/min/1.73 sqM) Glucose 57 L (74-99) mg/dL POC Glucose (mg/dL) 145 H (75-99) mg/dL POC Glu Labor Relations Consultant ID Radha Davis Lactic Ac Sepsis Rflx Y Plasma Lactic Acid Gilberto (0.7-2.0) mmol/L Calcium 8.2 L (8.4-10.2) mg/dL Magnesium (1.6-2.3) mg/dL Total Bilirubin 5.6 H (0.2-1.3) mg/dL AST 306 H (17-59) U/L ALT 87 H (4-49) U/L Alkaline Phosphatase 121 (38-126) U/L Ammonia (<30) umol/L Troponin I (0.000-0.034) ng/mL Total Protein 6.2 L (6.3-8.2) g/dL Albumin 2.6 L (3.5-5.0) g/dL Urine Color Urine Appearance (Clear) Urine pH (5.0-8.0) Ur Specific [place] (1.001-1.035) Urine Protein (Negative) Urine Glucose (UA) (Negative) Urine Ketones (Negative) Urine Blood (Negative) Urine Nitrite (Negative) Urine Bilirubin (Negative) Urine Urobilinogen (<2.0) mg/dL Ur Leukocyte Esterase (Negative) Urine RBC (0-5) /hpf Urine WBC (0-5) /hpf Urine WBC Clumps (None) /hpf Ur Squamous Epith Cells (0-4) /hpf Urine Bacteria (None) /hpf Urine Yeast (Budding) (None) /hpf Acetaminophen <10.0 ug/mL Coronavirus (PCR) (Not Detectd) Crossmatch 10/22/21 10/22/21 10/22/21 Range/Units 16:11 16:20 17:44 WBC (3.8-10.6) k/uL RBC (4.30-5.90) m/uL Hgb (13.0-17.5) gm/dL Hct (39.0-53.0) % MCV (80.0-100.0) fL MCH (25.0-35.0) pg MCHC (31.0-37.0) g/dL RDW (11.5-15.5) % Plt Count (150-450) k/uL MPV Neutrophils % (Manual) % Band Neuts % (Manual) % Lymphocytes % (Manual) % Monocytes % (Manual) % Neutrophils # (Manual) (1.3-7.7) k/uL Lymphocytes # (Manual) (1.0-4.8) k/uL Monocytes # (Manual) (0-1.0) k/uL Nucleated RBCs (0-0) /100 WBC Manual Slide Review Anisocytosis PT (9.0-12.0) sec INR (<1.2) APTT (22.0-30.0) sec VBG pH (7.31-7.41) VBG pCO2 (37-51) mmHg VBG HCO3 (24-28) mmol/L Sodium (137-145) mmol/L Potassium (3.5-5.1) mmol/L Chloride (98-107) mmol/L Carbon Dioxide (22-30) mmol/L Anion Gap mmol/L BUN (9-20) mg/dL Creatinine (0.66-1.25) mg/dL Est GFR (CKD-EPI)AfAm (>60 ml/min/1.73 sqM) Est GFR (CKD-EPI)NonAf (>60 ml/min/1.73 sqM) Glucose (74-99) mg/dL POC Glucose (mg/dL) 50 L (75-99) mg/dL POC Glu Labor Relations Consultant ID PINKY Christopher, Wil[place] Lactic Ac Sepsis Rflx Plasma Lactic Acid Gilberto 4.4 H* (0.7-2.0) mmol/L Calcium (8.4-10.2) mg/dL Magnesium (1.6-2.3) mg/dL Total Bilirubin (0.2-1.3) mg/dL AST (17-59) U/L ALT (4-49) U/L Alkaline Phosphatase (38-126) U/L Ammonia (<30) umol/L Troponin I (0.000-0.034) ng/mL Total Protein (6.3-8.2) g/dL Albumin (3.5-5.0) g/dL Urine Color Urine Appearance (Clear) Urine pH (5.0-8.0) Ur Specific [place] (1.001-1.035) Urine Protein (Negative) Urine Glucose (UA) (Negative) Urine Ketones (Negative) Urine Blood (Negative) Urine Nitrite (Negative) Urine Bilirubin (Negative) Urine Urobilinogen (<2.0) mg/dL Ur Leukocyte Esterase (Negative) Urine RBC (0-5) /hpf Urine WBC (0-5) /hpf Urine WBC Clumps (None) /hpf Ur Squamous Epith Cells (0-4) /hpf Urine Bacteria (None) /hpf Urine Yeast (Budding) (None) /hpf Acetaminophen ug/mL Coronavirus (PCR) Not Detected (Not Detectd) Crossmatch 10/22/21 10/22/21 10/22/21 Range/Units 17:45 18:11 18:20 WBC (3.8-10.6) k/uL RBC (4.30-5.90) m/uL Hgb (13.0-17.5) gm/dL Hct (39.0-53.0) % MCV (80.0-100.0) fL MCH (25.0-35.0) pg MCHC (31.0-37.0) g/dL RDW (11.5-15.5) % Plt Count (150-450) k/uL MPV Neutrophils % (Manual) % Band Neuts % (Manual) % Lymphocytes % (Manual) % Monocytes % (Manual) % Neutrophils # (Manual) (1.3-7.7) k/uL Lymphocytes # (Manual) (1.0-4.8) k/uL Monocytes # (Manual) (0-1.0) k/uL Nucleated RBCs (0-0) /100 WBC Manual Slide Review Anisocytosis PT (9.0-12.0) sec INR (<1.2) APTT (22.0-30.0) sec VBG pH (7.31-7.41) VBG pCO2 (37-51) mmHg VBG HCO3 (24-28) mmol/L Sodium (137-145) mmol/L Potassium (3.5-5.1) mmol/L Chloride (98-107) mmol/L Carbon Dioxide (22-30) mmol/L Anion Gap mmol/L BUN (9-20) mg/dL Creatinine (0.66-1.25) mg/dL Est GFR (CKD-EPI)AfAm (>60 ml/min/1.73 sqM) Est GFR (CKD-EPI)NonAf (>60 ml/min/1.73 sqM) Glucose (74-99) mg/dL POC Glucose (mg/dL) 99 (75-99) mg/dL POC Glu Labor Relations Consultant ID Candi, II, Wil[place] Lactic Ac Sepsis Rflx Y Plasma Lactic Acid Gilberto (0.7-2.0) mmol/L Calcium (8.4-10.2) mg/dL Magnesium (1.6-2.3) mg/dL Total Bilirubin (0.2-1.3) mg/dL AST (17-59) U/L ALT (4-49) U/L Alkaline Phosphatase (38-126) U/L Ammonia (<30) umol/L Troponin I (0.000-0.034) ng/mL Total Protein (6.3-8.2) g/dL Albumin (3.5-5.0) g/dL Urine Color Red Urine Appearance Turbid (Clear) Urine pH 6.5 (5.0-8.0) Ur Specific [place] 1.020 (1.001-1.035) Urine Protein 3+ H (Negative) Urine Glucose (UA) Negative (Negative) Urine Ketones Negative (Negative) Urine Blood Large H (Negative) Urine Nitrite Negative (Negative) Urine Bilirubin Negative (Negative) Urine Urobilinogen <2.0 (<2.0) mg/dL Ur Leukocyte Esterase Large H (Negative) Urine RBC 21 H (0-5) /hpf Urine WBC >182 H (0-5) /hpf Urine WBC Clumps Many H (None) /hpf Ur Squamous Epith Cells 7 H (0-4) /hpf Urine Bacteria Many H (None) /hpf Urine Yeast (Budding) Few H (None) /hpf Acetaminophen ug/mL Coronavirus (PCR) (Not Detectd) Crossmatch 10/22/21 10/22/21 Range/Units 18:23 18:47 WBC (3.8-10.6) k/uL RBC (4.30-5.90) m/uL Hgb (13.0-17.5) gm/dL Hct (39.0-53.0) % MCV (80.0-100.0) fL MCH (25.0-35.0) pg MCHC (31.0-37.0) g/dL RDW (11.5-15.5) % Plt Count (150-450) k/uL MPV Neutrophils % (Manual) % Band Neuts % (Manual) % Lymphocytes % (Manual) % Monocytes % (Manual) % Neutrophils # (Manual) (1.3-7.7) k/uL Lymphocytes # (Manual) (1.0-4.8) k/uL Monocytes # (Manual) (0-1.0) k/uL Nucleated RBCs (0-0) /100 WBC Manual Slide Review Anisocytosis PT (9.0-12.0) sec INR (<1.2) APTT (22.0-30.0) sec VBG pH (7.31-7.41) VBG pCO2 (37-51) mmHg VBG HCO3 (24-28) mmol/L Sodium (137-145) mmol/L Potassium (3.5-5.1) mmol/L Chloride (98-107) mmol/L Carbon Dioxide (22-30) mmol/L Anion Gap mmol/L BUN (9-20) mg/dL Creatinine (0.66-1.25) mg/dL Est GFR (CKD-EPI)AfAm (>60 ml/min/1.73 sqM) Est GFR (CKD-EPI)NonAf (>60 ml/min/1.73 sqM) Glucose (74-99) mg/dL POC Glucose (mg/dL) 84 (75-99) mg/dL POC Glu [employer] Consultant ID [email or web address] Christopher Andre Lactic Ac Sepsis Rflx Plasma Lactic Acid Gilberto (0.7-2.0) mmol/L Calcium (8.4-10.2) mg/dL Magnesium (1.6-2.3) mg/dL Total Bilirubin (0.2-1.3) mg/dL AST (17-59) U/L ALT (4-49) U/L Alkaline Phosphatase (38-126) U/L Ammonia (<30) umol/L Troponin I (0.000-0.034) ng/mL Total Protein (6.3-8.2) g/dL Albumin (3.5-5.0) g/dL Urine Color Urine Appearance (Clear) Urine pH (5.0-8.0) Ur Specific [place] (1.001-1.035) Urine Protein (Negative) Urine Glucose (UA) (Negative) Urine Ketones (Negative) Urine Blood (Negative) Urine Nitrite (Negative) Urine Bilirubin (Negative) Urine Urobilinogen (<2.0) mg/dL Ur Leukocyte Esterase (Negative) Urine RBC (0-5) /hpf Urine WBC (0-5) /hpf Urine WBC Clumps (None) /hpf Ur Squamous Epith Cells (0-4) /hpf Urine Bacteria (None) /hpf Urine Yeast (Budding) (None) /hpf Acetaminophen ug/mL Coronavirus (PCR) (Not Detectd) Crossmatch See Detail Critical Care Time Critical Care Time: Yes Total Critical Care Time: 90 <Josemanuel Colin - Last Filed: 10/22/21 21:43> Critical Care Time: Upon my evaluation, this patient had a high probability of imminent or life- threatening deterioration due to acute hepatic failure, septic shock requiring vasopressor administration, which required my direct attention, intervention, and personal management. I have personally provided 90 minutes of critical care time exclusive of time spent on separately billable procedures. Time includes review of laboratory data, radiology results, discussion with consultants, and monitoring for potential decompensation. Interventions were performed as documented in my note. (Josemanuel Colin) Disposition <Imer Benitez - Last Filed: 10/22/21 14:55> <Josemanuel Colin - Last Filed: 10/22/21 21:43> Clinical Impression: Acute liver failure, ESRD on hemodialysis, NSTEMI (non-ST elevated myocardial infarction), Septic shock, Hepatic encephalopathy, Coagulation disorder, GI bleed, Lactic acidosis, Hypoglycemia Disposition: ADMITTED IP TO THIS HOSP Condition: Critical
[2021-10-22] MEDS ORDERED: PIPERACILLIN-TAZOBACTAM 3.375 GM in SODIUM CHLORIDE 0.9% 100 ML IVPB STA (14:38)
[2021-10-22 14:44] LABS: Anisocytosis Slight; HCT 32.7 % (39.0-53.0); HGB 11.4 gm/dL (13.0-17.5); MCH 32.3 pg (25.0-35.0); MCHC 34.7 g/dL (31.0-37.0); Mean Platelet Volume 9.1; Platelet Count 286 k/uL (150-450); RBC 3.52 m/uL (4.30-5.90); RDW 17.9 % (11.5-15.5); WBC 17.4 k/uL (3.8-10.6)
[2021-10-22] MEDS ORDERED: SODIUM CHLORIDE 0.9% 1,000 ML IV SCH (14:45)
[2021-10-22 14:54] LABS: Glucose,Whole Blood 145 mg/dL (75-99)
[2021-10-22 15:00] LABS: Prothrombin Time >130.0 sec (9.0-12.0)
[2021-10-22 15:06] LABS: INR >10.0 (<1.2); Partial Thromboplastin Time 75.3 sec (22.0-30.0)
[2021-10-22 15:23] LABS: Band Neutrophils % 1 %; Lymphocytes # (M) 0.52 k/uL (1.0-4.8); Neutrophils % (M) 92 %; Nucleated Red Blood Cells 0 /100 WBC (0-0); Total Cells Counted 100
[2021-10-22] MEDS ORDERED: SODIUM CHLORIDE 0.9% 1,000 ML IV ONE (15:24)
--- NOTE | 2021-10-22 16:02 | US ---
EXAMINATION TYPE: US gallbladder DATE OF EXAM: 10/22/2021 COMPARISON: CT abdomen and pelvis 2019 CLINICAL HISTORY: HYPERBilirubinemia. EXAM MEASUREMENTS: Liver Length: 18.7 cm Gallbladder Wall: 0.4 cm CBD: 0.3 cm Right Kidney: 10.33 x 5.0 x 4.9 cm Pancreas: Obscured by bowel gas Liver: wnl Gallbladder: Shadowing foci with internal echoes Evidence for sonographic Oakley's sign: No CBD: wnl Right Kidney: No hydronephrosis or masses seen Pancreas suboptimally seen on this study. Visualized liver redemonstrated heterogeneously hyperechoic . Gallbladder filling with shadowing gallstones and small gallbladder sludge. Mild abnormal gallbladd er wall thickening is nonspecific. Sonographic Oakley sign negative. No right-sided hydronephrosis. C ortical thinning. IMPRESSION: Gallstones without convincing secondary ultrasound evidence for acute cholecystitis. No i ntrahepatic or extrahepatic biliary dilatation. Mild wall thickening favored product of underlying he patocellular disease.
[2021-10-22 16:21] LABS: Glucose,Whole Blood 50 mg/dL (75-99)
[2021-10-22 16:34] LABS: ALT 87 U/L (4-49); AST 306 U/L (17-59); Acetaminophen <10.0 ug/mL; African American GFR (CKD) 16 (>60 ml/min/1.73 sqM); Albumin 2.6 g/dL (3.5-5.0); Alkaline Phosphatase 121 U/L (38-126); Anion Gap 13 mmol/L; Blood Urea Nitrogen 28 mg/dL (9-20); Calcium 8.2 mg/dL (8.4-10.2); Carbon Dioxide 26 mmol/L (22-30); Chloride 93 mmol/L (98-107); Glucose 57 mg/dL (74-99); Non-African American GFR(CKD) 14 (>60 ml/min/1.73 sqM); Potassium 2.8 mmol/L (3.5-5.1); Sodium 132 mmol/L (137-145); Total Bilirubin 5.6 mg/dL (0.2-1.3); Total Protein 6.2 g/dL (6.3-8.2)
[2021-10-22] MEDS: NOREPINEPHRINE 32 MG in SODIUM CHLORIDE 0.9% 218 ML IV SCH (16:43)
[2021-10-22] MEDS ORDERED: POTASSIUM CHLORIDE 20 MEQ in WATER FOR INJECTION 1 100ML.BAG IVPB STA (17:27)
--- NOTE | 2021-10-22 17:40 | XR ---
EXAMINATION TYPE: XR chest 1V portable DATE OF EXAM: 10/22/2021 COMPARISON: Today HISTORY: Check line placement TECHNIQUE: FINDINGS: Heart is enlarged. There is no gross heart failure. There are chest leads. There is left ju gular catheter with tip in the superior vena cava. No pneumothorax. IMPRESSION: Mild cardiomegaly. No pulmonary consolidation or heart failure. Catheter in good position .
[2021-10-22 17:46] LABS: Glucose,Whole Blood 99 mg/dL (75-99)
--- NOTE | 2021-10-22 18:06 | XR ---
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 The re is mild plantar and Achilles calcaneal spurring. There is vascular calcification. There is some so ft tissue deformity on the lateral aspect of the foot with resection of the fifth metatarsal. IMPRESSION: Lateral foot surgery. Amputation deformity. No focal bone destruction seen.
[2021-10-22] MEDS ORDERED: VANCOMYCIN IV PER PHARMACY 1 EACH MISC MISCELLANE PRN (18:08)
[2021-10-22] MEDS ORDERED: VANCOMYCIN 1,500 MG in SODIUM CHLORIDE 0.9% 250 ML IVPB ONE (18:30)
[2021-10-22] MEDS ORDERED: PHYTONADIONE 10 MG in SODIUM CHLORIDE 0.9% 50 ML IVPB STA ×2 (18:34→18:58)
[2021-10-22 18:35] LABS: Appearance,Urine Turbid (Clear); Bacteria,Urine Many /hpf; Bilirubin,Urine Negative (Negative); Blood,Urine Large (Negative); Budding Yeast,Urine Few /hpf; Color,Urine Red; Glucose,Urine (UA) Negative (Negative); Ketones,Urine Negative (Negative); Leukocyte Esterase,Urine Large (Negative); Nitrite,Urine Negative (Negative); PH, Urine 6.5 (5.0-8.0); Protein,Urine 3+ (Negative); RBC,Urine 21 /hpf (0-5); Squamous Epithelial Cell,Urine 7 /hpf (0-4); Urobilinogen,Urine <2.0 mg/dL (<2.0); WBC,Urine >182 /hpf (0-5)
[2021-10-22] MEDS ORDERED: Kcentra PER PHARMACY 1 EACH MISC MISCELLANE PRN (18:46)
[2021-10-22] MEDS ORDERED: SODIUM CHLORIDE 0.9% 500 ML 500 ML IV STA (18:47)
[2021-10-22 18:48] LABS: Glucose,Whole Blood 84 mg/dL (75-99)
[2021-10-22] MEDS ORDERED: NALOXONE 0.4 MG/ML 1 ML VIAL IV PRN (18:52)
[2021-10-22] MEDS ORDERED: HUMAN PROTHROMBIN COMPLX IV ONE (19:15)
[2021-10-22 19:38] LABS: Anisocytosis Slight; HCT 35.2 % (39.0-53.0); HGB 11.4 gm/dL (13.0-17.5); MCH 30.7 pg (25.0-35.0); MCHC 32.2 g/dL (31.0-37.0); MCV 95.1 fL (80.0-100.0); Macrocytosis Slight; Mean Platelet Volume 10.4; Platelet Count 286 k/uL (150-450); RDW 18.1 % (11.5-15.5); WBC 26.8 k/uL (3.8-10.6)
[2021-10-22 19:48] LABS: Bilirubin, Conjugated 3.7 mg/dL (0.0-0.3); Bilirubin, Delta 2.1 mg/dL (0.0-0.2); Bilirubin,Unconjugated 0.5 mg/dL (0.0-1.1); Total Bilirubin 6.3 mg/dL (0.2-1.3)
[2021-10-22 19:59] LABS: Band Neutrophils % 8 %; Eosinophils # (M) 0.54 k/uL (0-0.7); Lymphocytes # (M) 0.54 k/uL (1.0-4.8); Metamyelocytes # (M) 0.27 k/uL (0); Metamyelocytes % 1 %; Monocytes # (M) 1.34 k/uL (0-1.0); Neutrophils % (M) 82 %; Nucleated Red Blood Cells 0 /100 WBC (0-0); Polychromasia Present; Total Cells Counted 100
[2021-10-22 20:22] LABS: Glucose,Whole Blood 62 mg/dL (75-99)
[2021-10-22 20:22] LABS: Glucose,Whole Blood 43 mg/dL (75-99)
[2021-10-22 21:15] LABS: Glucose,Whole Blood 76 mg/dL (75-99)
[2021-10-22 21:34] LABS: Glucose,Whole Blood 82 mg/dL (75-99)
[2021-10-22] MEDS ORDERED: HYDROCORTISONE SUCCINATE 100 MG/2 ML VIAL IV STA (22:08)
[2021-10-22] MEDS ORDERED: DEXTROSE 5%-0.9% NACL 1,000 ML IV SCH (22:30)
[2021-10-22] MEDS: SODIUM CHLORIDE 0.9% 50 ML with VASOPRESSIN 20 UNIT IVPB SCH ×2 (23:08)
[2021-10-22 23:09] LABS: Glucose,Whole Blood 74 mg/dL (75-99)
[2021-10-22 23:57] LABS: Glucose,Whole Blood 30 mg/dL (75-99)
[2021-10-23] MEDS ORDERED: PIPERACILLIN-TAZOBACTAM 3.375 GM in SODIUM CHLORIDE 0.9% 100 ML IVPB SCH ×2
[2021-10-23 00:05] LABS: Glucose,Whole Blood 50 mg/dL (75-99)
[2021-10-23] MEDS ORDERED: DEXTROSE 50% SYRINGE 50 ML IVP STA ×3 (00:08→07:00)
[2021-10-23 00:25] LABS: Glucose,Whole Blood 74 mg/dL (75-99)
[2021-10-23 01:28] LABS: Glucose,Whole Blood 62 mg/dL (75-99)
[2021-10-23 01:28] LABS: Glucose,Whole Blood 63 mg/dL (75-99)
[2021-10-23 01:43] LABS: Glucose,Whole Blood 111 mg/dL (75-99)
[2021-10-23 02:35] LABS: Glucose,Whole Blood 95 mg/dL (75-99)
[2021-10-23 03:10] LABS: Glucose,Whole Blood 93 mg/dL (75-99)
[2021-10-23] MEDS: SODIUM CHLORIDE 0.9% 50 ML with VASOPRESSIN 20 UNIT IVPB SCH ×2 (04:04)
[2021-10-23 04:11] LABS: Albumin 2.6 g/dL (3.5-5.0); Magnesium 1.8 mg/dL (1.6-2.3); Potassium 3.5 mmol/L (3.5-5.1); Total Bilirubin 7.5 mg/dL (0.2-1.3); Total Protein 6.2 g/dL (6.3-8.2)
[2021-10-23 04:12] LABS: Glucose,Whole Blood 81 mg/dL (75-99)
[2021-10-23 04:23] LABS: Anisocytosis Slight; HCT 36.4 % (39.0-53.0); HGB 11.3 gm/dL (13.0-17.5); Hypochromasia Slight; MCH 30.4 pg (25.0-35.0); MCV 98.3 fL (80.0-100.0); Macrocytosis Slight; Mean Platelet Volume 10.5; Platelet Count 311 k/uL (150-450); RDW 17.7 % (11.5-15.5)
[2021-10-23 05:07] LABS: Glucose,Whole Blood 71 mg/dL (75-99)
[2021-10-23 05:40] LABS: Glucose,Whole Blood 75 mg/dL (75-99)
[2021-10-23 05:58] LABS: Band Neutrophils % 36 %; Lymphocytes # (M) 1.58 k/uL (1.0-4.8); Metamyelocytes # (M) 0.53 k/uL (0); Metamyelocytes % 1 %; Neutrophils % (M) 58 %; Nucleated Red Blood Cells 1 /100 WBC (0-0); Total Cells Counted 200; WBC 52.5 k/uL (3.8-10.6)
[2021-10-23 05:59] LABS: Large Platelets Present; Polychromasia Present
[2021-10-23 06:01] LABS: Poikilocytosis (M) Present
[2021-10-23 06:19] LABS: Glucose,Whole Blood 73 mg/dL (75-99)
[2021-10-23] MEDS ORDERED: IOPAMIDOL CONTRAST (ORAL USE) VIAL PO PRN (06:33)
[2021-10-23 07:00] LABS: Glucose,Whole Blood 65 mg/dL (75-99)
[2021-10-23 07:17] LABS: Glucose,Whole Blood 92 mg/dL (75-99)
[2021-10-23] MEDS ORDERED: HYDROCORTISONE SUCCINATE 100 MG/2 ML VIAL IV SCH (08:00)
[2021-10-23] MEDS ORDERED: MIDODRINE 5 MG TAB PO PRN (09:14)
[2021-10-23] MEDS ORDERED: bisacodyL 10 MG SUPP RECTAL PRN (09:14)
--- NOTE | 2021-10-23 09:34 | P.NPCON ---
History of Present Illness - Reason for Consult end stage renal disease - History of Present Illness Reason for consultation: End-stage renal disease History of present illness: Patient is a 76-year-old male seen in renal consultation for end-stage renal disease. He is maintained on hemodialysis on Thursday schedule. Patient was brought from an F due to altered mental status. Patient was recently admitted with infection of his right foot and underwent metatarsal habitation. He currently has a wound VAC in place. He is scheduled to undergo dialysis today. He is currently on Levophed and vasopressin. Also receiving IV fluids. No fever. Most recent blood pressure 95/50. No evidence of fluid overload at this time. Vital signs are stable. On vasopressor support. General: Confused. HEENT: Head exam is unremarkable. LUNGS: Breath sounds decreased. HEART: Rate and Rhythm are regular. ABDOMEN: Soft, no distention. EXTREMITITES: No edema. Chronic changes noted. No drainage. Wound VAC noted. Past Medical History Past Medical History: Atrial Fibrillation, Diabetes Mellitus, Dialysis, Eye Disorder, Hyperlipidemia, Hypertension, Prostate Disorder, Renal Disease, Skin Disorder, Thyroid Disorder, Vascular Disorder Additional Past Medical History / Comment(s): hemodialysis M-W-F, anemia, legs sometimes go out and buckle per pt, wounds right foot, PICC line, dialysis fistula left upper arm History of Any Multi-Drug Resistant Organisms: ESBL Date of last positivie culture/infection: 08/23/21 ESBL E.coli MDRO Source:: Right Foot Past Surgical History: No Surgical Hx Reported Additional Past Surgical History / Comment(s): placement of peritoneal dialysis catheter and repair of umbilical hernia 07/2017, colonoscopy w/polypectomy, right upper thigh PICC line, Rt foot wound debridement 08-23-21, aortogram & PTBA 10-01-21 Past Anesthesia/Blood Transfusion Reactions: No Reported Reaction Past Psychological History: No Psychological Hx Reported Smoking Status: Former smoker Past Alcohol Use History: None Reported Past Drug Use History: None Reported - Past Family History Father Family Medical History: Myocardial Infarction (CT) Additional Family Medical History / Comment(s): patient has 3 brothers, 1 sister is relatively healthy has chronic back problems patient has 5 children that are healthy with no kidney diabetes or coronary artery disease. Mother Family Medical History: Coronary Artery Disease (CAD), Diabetes Mellitus Medications and Allergies Home Medications Medication Instructions Recorded Confirmed Type Folic Acid 0.4 mg PO DAILY@1700 11/04/19 10/22/21 History Calcium Acetate [PhosLo] 667 mg PO AC-TID 08/04/20 10/22/21 History Atorvastatin [Lipitor] 40 mg PO HS tab 08/07/20 10/22/21 Rx Fenofibrate Nanocrystallized 145 mg PO DAILY@0800 08/20/21 10/22/21 History [Fenofibrate] Latanoprost [Xalatan 0.005%] 1 drop BOTH EYES HS 08/20/21 10/22/21 History Midodrine [ProAmatine] 5 mg PO BID PRN 08/20/21 10/22/21 History Rivaroxaban [Xarelto] 15 mg PO DAILY@1700 08/20/21 10/22/21 History Acetaminophen Tab [Tylenol] 650 mg PO Q6HR PRN tab 08/28/21 10/22/21 Rx Melatonin 5 mg PO HS tablet 08/28/21 10/22/21 Rx INSULIN ASPART (NovoLOG) [NovoLOG See Protocol SQ ACHS PRN 09/09/21 10/22/21 History (formulary)] Magnesium Hydroxide [Milk of 7,200 ml PO DAILY PRN 09/09/21 10/22/21 History Magnesia Concentrate] bisacodyL [Dulcolax] 10 mg RECTAL DAILY PRN 09/09/21 10/22/21 History Pantoprazole [Protonix] 40 mg PO DAILY@0730 09/27/21 10/22/21 History Furosemide [Lasix] 80 mg PO DAILY@0800 10/22/21 10/22/21 History HYDROcodone/APAP 5-325MG [Romeo 1 tab PO Q6HR PRN 10/22/21 10/22/21 History 5-325] Insuln Asp Prt/Insulin Aspart 4 unit SQ AC-BID@0800,1700 10/22/21 10/22/21 History [NovoLOG MIX 70-30 VIAL] Levothyroxine Sodium [Synthroid] 150 mcg PO DAILY@0630 10/22/21 10/22/21 History Liquacel 1 dose PO DIRECTED 10/22/21 10/22/21 History Menthol/Zinc Oxide [Calmoseptine 1 applic TOPICAL BID 10/22/21 10/22/21 History Ointment] Metoprolol Tartrate [Lopressor] 25 mg PO BID@0800,1700 10/22/21 10/22/21 History Sodium Chloride Irrig Solution 20 ml IRRIGATION TID 10/22/21 10/22/21 History [Saline 0.9% Irrigation] Tamsulosin [Flomax] 0.4 mg PO DAILY@0800 10/22/21 10/22/21 History hydrALAZINE HCL [Apresoline] 25 mg PO TID@0600,1400,2200 10/22/21 10/22/21 History Allergies Allergy/AdvReac Type Severity Reaction Status Date / Time No Known Allergies Allergy Verified 10/11/21 12:29 Physical Exam Vitals: Vital Signs Temp Pulse Resp BP BP Pulse Ox 10/23/21 07:15 80 21 95/50 97 10/23/21 07:00 80 18 100/60 95 10/23/21 06:45 85 19 101/51 96 10/23/21 06:30 86 13 99/55 95 10/23/21 06:15 92 17 95/55 96 10/23/21 06:00 87 20 98/58 96 10/23/21 05:45 84 18 93/58 96 10/23/21 05:30 82 18 83/47 97 10/23/21 05:15 75 16 91/48 97 10/23/21 05:00 80 18 93/48 96 10/23/21 04:53 97.5 F L 78 20 93/48 96 10/23/21 04:45 75 20 96/50 97 10/23/21 04:43 97.3 F L 82 18 96/50 97 10/23/21 04:30 82 17 100/50 97 10/23/21 04:15 76 18 93/52 97 10/23/21 04:00 97.5 F L 87 16 93/47 97 10/23/21 03:45 77 21 88/48 98 10/23/21 03:30 85 17 97/48 98 10/23/21 03:15 81 15 71/48 98 10/23/21 03:00 87 19 92/48 99 10/23/21 02:45 75 22 85/49 100 10/23/21 02:30 86 17 90/47 98 10/23/21 02:15 88 18 89/47 98 10/23/21 02:00 80 21 106/48 98 10/23/21 01:45 77 17 95/49 99 10/23/21 01:30 81 20 87/52 98 10/23/21 01:15 85 19 88/47 100 10/23/21 01:00 78 23 99/54 99 10/23/21 00:45 80 17 88/45 99 10/23/21 00:30 75 22 87/48 100 10/23/21 00:15 73 20 94/49 99 10/23/21 00:00 97.8 F 89 23 92/49 99 10/22/21 23:45 74 20 93/49 100 10/22/21 23:37 84 17 94/45 98 10/22/21 23:30 81 9 L 89/43 99 10/22/21 23:20 75 20 86/42 98 10/22/21 23:10 71 19 76/36 10/22/21 23:00 75 24 80/43 99 10/22/21 22:50 79 19 79/41 97 10/22/21 22:40 77 18 73/35 96 10/22/21 22:30 79 23 74/34 97 10/22/21 22:20 89 22 77/38 97 10/22/21 22:18 97.5 F L 22 85/45 10/22/21 22:10 77 22 82/39 98 10/22/21 22:00 80 20 83/40 99 10/22/21 21:50 83 17 87/44 99 10/22/21 21:40 97.5 F L 88 23 88/39 96 10/22/21 21:15 97.8 F 74 16 94/56 98 10/22/21 21:03 90 14 87/53 95 10/22/21 20:48 77 15 102/49 96 10/22/21 20:30 79 15 92/44 98 10/22/21 19:42 80 16 95/52 96 10/22/21 19:03 89 18 89/39 98 10/22/21 18:48 89/58 10/22/21 18:43 89 18 92/46 10/22/21 18:36 91 18 84/44 98 10/22/21 18:06 76 18 70/43 100 10/22/21 18:00 69/42 11/23/21 17:42 73 18 70/40 99 10/22/21 17:30 76 18 65/40 98 10/22/21 17:27 90 L 10/22/21 17:24 84 58/43 88 L 10/22/21 17:17 60/37 10/22/21 17:12 58/33 10/22/21 17:02 72 70/30 10/22/21 16:48 78 73/43 10/22/21 16:21 70 16 54/34 97 10/22/21 14:26 86 18 81/42 99 10/22/21 13:35 97.4 F L 80 18 88/49 99 Intake and Output 10/22/21 10/23/21 10/23/21 22:59 06:59 14:59 Intake Total 99.807 600 75 Output Total 5 0 0 Balance 94.807 600 75 Intake: Intake, IV Titration 99.807 600 75 Amount Dextrose 5%-0.9% NaCl 1, 75 600 75 000 ml @ 75 mls/hr IV . [id number] ALLISON Rx#:[id number] Norepinephrine 32 mg In 24.807 Sodium Chloride 0.9% 218 ml @ 0.05 MCG/KG/MIN 1. 914 mls/hr IV .Q24H ALLISON Rx#:[id number] Blood Product 0 Rc As-1 Unit 0 [id number] Output: Urine 5 0 0 Other: Voiding Method Indwelling Catheter Indwelling Catheter Weight 81.647 kg 105.2 kg Results - Lab Results Most recent lab results Calcium 8.0 mg/dL (8.4-10.2) L 10/23/21 03:13 Magnesium 1.8 mg/dL (1.6-2.3) 10/23/21 03:13 10/23/21 03:13 10/23/21 03:13 Assessment and Plan Plan: Assessment: 1. End-stage renal disease maintained on hemodialysis on Thursday schedule. 2. Septic shock maintained on Levophed. 3. Hypokalemia from poor intake. Replaced. 4. Right foot infection with wound VAC. On antibiotics. 5. Chronic kidney disease mineral bone disease. 6. Diabetes mellitus. Plan: Hemodialysis today. Decrease rate of normal saline to 50 mL an hour. Check blood cultures. Also check cultures from permacath. Follow-up echocardiogram and CT of the abdomen and pelvis. Thank you for the consultation. I will continue to follow the patient with you during his hospital stay.
[2021-10-23 10:12] LABS: GGT 60 U/L (15-73); Lipase 88 U/L (23-300)
[2021-10-23 10:30] LABS: LDH 4068 U/L (313-618)
--- NOTE | 2021-10-23 11:07 | P.GSCN ---
History of Present Illness Consult date: 10/23/21 Reason for Consult: Possible sepsis History of present illness: Is a 76-year-old male was admitted through the emergency room. Patient was not ed to have significant leukocytosis and elevated liver function tests. Apparently attempts were made to transfer to tertiary care center however this was not possible yesterday. Patient's currently resting comfortably in his bed. He has multiple medical problems. Past Medical History Past Medical History: Atrial Fibrillation, Diabetes Mellitus, Dialysis, Eye Disorder, Hyperlipidemia, Hypertension, Prostate Disorder, Renal Disease, Skin Disorder, Thyroid Disorder, Vascular Disorder Additional Past Medical History / Comment(s): hemodialysis M-W-F, anemia, legs sometimes go out and buckle per pt, wounds right foot, PICC line, dialysis fistula left upper arm History of Any Multi-Drug Resistant Organisms: ESBL Year Discovered:: 08/23/21 ESBL E.coli MDRO Source:: Right Foot Past Surgical History: No Surgical Hx Reported Additional Past Surgical History / Comment(s): placement of peritoneal dialysis catheter and repair of umbilical hernia 07/2017, colonoscopy w/polypectomy, right upper thigh PICC line, Rt foot wound debridement 08-23-21, aortogram & PTBA 10-01-21 Past Anesthesia/Blood Transfusion Reactions: No Reported Reaction Past Psychological History: No Psychological Hx Reported Smoking Status: Former smoker Past Alcohol Use History: None Reported Past Drug Use History: None Reported - Past Family History Father Family Medical History: Myocardial Infarction ([place]) Additional Family Medical History / Comment(s): patient has 3 brothers, 1 sister is relatively healthy has chronic back problems patient has 5 children that are healthy with no kidney diabetes or coronary artery disease. Mother Family Medical History: Coronary Artery Disease (CAD), Diabetes Mellitus Medications and Allergies Home Medications Medication Instructions Recorded Confirmed Type Folic Acid 0.4 mg PO DAILY@1700 11/04/19 10/22/21 History Calcium Acetate [PhosLo] 667 mg PO AC-TID 08/04/20 10/22/21 History Atorvastatin [Lipitor] 40 mg PO HS tab 08/07/20 10/22/21 Rx Fenofibrate Nanocrystallized 145 mg PO DAILY@0800 08/20/21 10/22/21 History [Fenofibrate] Latanoprost [Xalatan 0.005%] 1 drop BOTH EYES HS 08/20/21 10/22/21 History Midodrine [ProAmatine] 5 mg PO BID PRN 08/20/21 10/22/21 History Rivaroxaban [Xarelto] 15 mg PO DAILY@1700 08/20/21 10/22/21 History Acetaminophen Tab [Tylenol] 650 mg PO Q6HR PRN tab 08/28/21 10/22/21 Rx Melatonin 5 mg PO HS tablet 08/28/21 10/22/21 Rx INSULIN ASPART (NovoLOG) [NovoLOG See Protocol SQ ACHS PRN 09/09/21 10/22/21 History (formulary)] Magnesium Hydroxide [Milk of 7,200 ml PO DAILY PRN 09/09/21 10/22/21 History Magnesia Concentrate] bisacodyL [Dulcolax] 10 mg RECTAL DAILY PRN 09/09/21 10/22/21 History Pantoprazole [Protonix] 40 mg PO DAILY@0730 09/27/21 10/22/21 History Furosemide [Lasix] 80 mg PO DAILY@0800 10/22/21 10/22/21 History HYDROcodone/APAP 5-325MG [Welsh 1 tab PO Q6HR PRN 10/22/21 10/22/21 History 5-325] Insuln Asp Prt/Insulin Aspart 4 unit SQ AC-BID@0800,1700 10/22/21 10/22/21 History [NovoLOG MIX 70-30 VIAL] Levothyroxine Sodium [Synthroid] 150 mcg PO DAILY@0630 10/22/21 10/22/21 History Liquacel 1 dose PO DIRECTED 10/22/21 10/22/21 History Menthol/Zinc Oxide [Calmoseptine 1 applic TOPICAL BID 10/22/21 10/22/21 History Ointment] Metoprolol Tartrate [Lopressor] 25 mg PO BID@0800,1700 10/22/21 10/22/21 History Sodium Chloride Irrig Solution 20 ml IRRIGATION TID 10/22/21 10/22/21 History [Saline 0.9% Irrigation] Tamsulosin [Flomax] 0.4 mg PO DAILY@0800 10/22/21 10/22/21 History hydrALAZINE HCL [Apresoline] 25 mg PO TID@0600,1400,2200 10/22/21 10/22/21 History Allergies Allergy/AdvReac Type Severity Reaction Status Date / Time No Known Allergies Allergy Verified 10/11/21 12:29 Surgical - Exam Vital Signs Temp Pulse Resp BP Pulse Ox 97.4 F L 80 18 88/49 99 10/22/21 13:35 10/22/21 13:35 10/22/21 13:35 10/22/21 13:35 10/22/21 13:35 - General no distress - Abdomen Abdomen is soft. There is some minimal tenderness. There is no rebound or guarding Results - Labs 10/23/21 03:13 10/23/21 03:13 Abnormal Lab Results - Last 24 Hours (Table) 10/22/21 10/22/21 10/22/21 Range/Units 13:57 13:57 13:57 WBC 17.4 H (3.8-10.6) k/uL RBC 3.52 L (4.30-5.90) m/uL Hgb 11.4 L (13.0-17.5) gm/dL Hct 32.7 L (39.0-53.0) % RDW 17.9 H (11.5-15.5) % Neutrophils # (Manual) 16.10 H (1.3-7.7) k/uL Lymphocytes # (Manual) 0.52 L (1.0-4.8) k/uL Monocytes # (Manual) (0-1.0) k/uL Metamyelocytes # (Man) (0) k/uL Nucleated RBCs (0-0) /100 WBC PT >130.0 H (9.0-12.0) sec INR >10.0 H* (<1.2) APTT 75.3 H (22.0-30.0) sec Fibrinogen (200-500) mg/dL D-Dimer (<0.60) mg/L FEU VBG pH (7.31-7.41) VBG HCO3 (24-28) mmol/L Sodium 131 L (137-145) mmol/L Potassium 3.1 L (3.5-5.1) mmol/L Chloride 91 L (98-107) mmol/L BUN 29 H (9-20) mg/dL Creatinine 4.12 H (0.66-1.25) mg/dL Glucose 39 L* (74-99) mg/dL POC Glucose (mg/dL) (75-99) mg/dL Plasma Lactic Acid Gilberto (0.7-2.0) mmol/L Calcium (8.4-10.2) mg/dL Total Bilirubin 6.5 H (0.2-1.3) mg/dL Conjugated Bilirubin (0.0-0.3) mg/dL Delta Bilirubin (0.0-0.2) mg/dL AST 348 H (17-59) U/L ALT 105 H (4-49) U/L Alkaline Phosphatase 157 H (38-126) U/L Ammonia (<30) umol/L Lactate Dehydrogenase (313-618) U/L Troponin I (0.000-0.034) ng/mL Total Protein (6.3-8.2) g/dL Albumin 3.1 L (3.5-5.0) g/dL Urine Protein (Negative) Urine Blood (Negative) Ur Leukocyte Esterase (Negative) Urine RBC (0-5) /hpf Urine WBC (0-5) /hpf Urine WBC Clumps (None) /hpf Ur Squamous Epith Cells (0-4) /hpf Urine Bacteria (None) /hpf Urine Yeast (Budding) (None) /hpf Crossmatch 10/22/21 10/22/21 10/22/21 Range/Units 13:57 13:57 13:58 WBC (3.8-10.6) k/uL RBC (4.30-5.90) m/uL Hgb (13.0-17.5) gm/dL Hct (39.0-53.0) % RDW (11.5-15.5) % Neutrophils # (Manual) (1.3-7.7) k/uL Lymphocytes # (Manual) (1.0-4.8) k/uL Monocytes # (Manual) (0-1.0) k/uL Metamyelocytes # (Man) (0) k/uL Nucleated RBCs (0-0) /100 WBC PT (9.0-12.0) sec INR (<1.2) APTT (22.0-30.0) sec Fibrinogen (200-500) mg/dL D-Dimer (<0.60) mg/L FEU VBG pH 7.50 H (7.31-7.41) VBG HCO3 29 H (24-28) mmol/L Sodium (137-145) mmol/L Potassium (3.5-5.1) mmol/L Chloride (98-107) mmol/L BUN (9-20) mg/dL Creatinine (0.66-1.25) mg/dL Glucose (74-99) mg/dL POC Glucose (mg/dL) (75-99) mg/dL Plasma Lactic Acid Gilberto 3.2 H* (0.7-2.0) mmol/L Calcium (8.4-10.2) mg/dL Total Bilirubin (0.2-1.3) mg/dL Conjugated Bilirubin (0.0-0.3) mg/dL Delta Bilirubin (0.0-0.2) mg/dL AST (17-59) U/L ALT (4-49) U/L Alkaline Phosphatase (38-126) U/L Ammonia 57 H (<30) umol/L Lactate Dehydrogenase (313-618) U/L Troponin I 0.103 H* (0.000-0.034) ng/mL Total Protein (6.3-8.2) g/dL Albumin (3.5-5.0) g/dL Urine Protein (Negative) Urine Blood (Negative) Ur Leukocyte Esterase (Negative) Urine RBC (0-5) /hpf Urine WBC (0-5) /hpf Urine WBC Clumps (None) /hpf Ur Squamous Epith Cells (0-4) /hpf Urine Bacteria (None) /hpf Urine Yeast (Budding) (None) /hpf Crossmatch 10/22/21 10/22/21 10/22/21 Range/Units 14:50 16:10 16:11 WBC (3.8-10.6) k/uL RBC (4.30-5.90) m/uL Hgb (13.0-17.5) gm/dL Hct (39.0-53.0) % RDW (11.5-15.5) % Neutrophils # (Manual) (1.3-7.7) k/uL Lymphocytes # (Manual) (1.0-4.8) k/uL Monocytes # (Manual) (0-1.0) k/uL Metamyelocytes # (Man) (0) k/uL Nucleated RBCs (0-0) /100 WBC PT (9.0-12.0) sec INR (<1.2) APTT (22.0-30.0) sec Fibrinogen (200-500) mg/dL D-Dimer (<0.60) mg/L FEU VBG pH (7.31-7.41) VBG HCO3 (24-28) mmol/L Sodium 132 L (137-145) mmol/L Potassium 2.8 L (3.5-5.1) mmol/L Chloride 93 L (98-107) mmol/L BUN 28 H (9-20) mg/dL Creatinine 4.03 H (0.66-1.25) mg/dL Glucose 57 L (74-99) mg/dL POC Glucose (mg/dL) 145 H (75-99) mg/dL Plasma Lactic Acid Gilberto 4.4 H* (0.7-2.0) mmol/L Calcium 8.2 L (8.4-10.2) mg/dL Total Bilirubin 5.6 H (0.2-1.3) mg/dL Conjugated Bilirubin (0.0-0.3) mg/dL Delta Bilirubin (0.0-0.2) mg/dL AST 306 H (17-59) U/L ALT 87 H (4-49) U/L Alkaline Phosphatase (38-126) U/L Ammonia (<30) umol/L Lactate Dehydrogenase (313-618) U/L Troponin I (0.000-0.034) ng/mL Total Protein 6.2 L (6.3-8.2) g/dL Albumin 2.6 L (3.5-5.0) g/dL Urine Protein (Negative) Urine Blood (Negative) Ur Leukocyte Esterase (Negative) Urine RBC (0-5) /hpf Urine WBC (0-5) /hpf Urine WBC Clumps (None) /hpf Ur Squamous Epith Cells (0-4) /hpf Urine Bacteria (None) /hpf Urine Yeast (Budding) (None) /hpf Crossmatch 10/22/21 10/22/21 10/22/21 Range/Units 16:20 18:20 18:23 WBC (3.8-10.6) k/uL RBC (4.30-5.90) m/uL Hgb (13.0-17.5) gm/dL Hct (39.0-53.0) % RDW (11.5-15.5) % Neutrophils # (Manual) (1.3-7.7) k/uL Lymphocytes # (Manual) (1.0-4.8) k/uL Monocytes # (Manual) (0-1.0) k/uL Metamyelocytes # (Man) (0) k/uL Nucleated RBCs (0-0) /100 WBC PT (9.0-12.0) sec INR (<1.2) APTT (22.0-30.0) sec Fibrinogen (200-500) mg/dL D-Dimer (<0.60) mg/L FEU VBG pH (7.31-7.41) VBG HCO3 (24-28) mmol/L Sodium (137-145) mmol/L Potassium (3.5-5.1) mmol/L Chloride (98-107) mmol/L BUN (9-20) mg/dL Creatinine (0.66-1.25) mg/dL Glucose (74-99) mg/dL POC Glucose (mg/dL) 50 L (75-99) mg/dL Plasma Lactic Acid Gilberto (0.7-2.0) mmol/L Calcium (8.4-10.2) mg/dL Total Bilirubin (0.2-1.3) mg/dL Conjugated Bilirubin (0.0-0.3) mg/dL Delta Bilirubin (0.0-0.2) mg/dL AST (17-59) U/L ALT (4-49) U/L Alkaline Phosphatase (38-126) U/L Ammonia (<30) umol/L Lactate Dehydrogenase (313-618) U/L Troponin I (0.000-0.034) ng/mL Total Protein (6.3-8.2) g/dL Albumin (3.5-5.0) g/dL Urine Protein 3+ H (Negative) Urine Blood Large H (Negative) Ur Leukocyte Esterase Large H (Negative) Urine RBC 21 H (0-5) /hpf Urine WBC >182 H (0-5) /hpf Urine WBC Clumps Many H (None) /hpf Ur Squamous Epith Cells 7 H (0-4) /hpf Urine Bacteria Many H (None) /hpf Urine Yeast (Budding) Few H (None) /hpf Crossmatch See Detail 10/22/21 10/22/21 10/22/21 Range/Units 19:11 19:11 19:11 WBC 26.8 H (3.8-10.6) k/uL RBC 3.70 L (4.30-5.90) m/uL Hgb 11.4 L (13.0-17.5) gm/dL Hct 35.2 L (39.0-53.0) % RDW 18.1 H (11.5-15.5) % Neutrophils # (Manual) 24.10 H (1.3-7.7) k/uL Lymphocytes # (Manual) 0.54 L (1.0-4.8) k/uL Monocytes # (Manual) 1.34 H (0-1.0) k/uL Metamyelocytes # (Man) 0.27 H (0) k/uL Nucleated RBCs (0-0) /100 WBC PT (9.0-12.0) sec INR (<1.2) APTT (22.0-30.0) sec Fibrinogen (200-500) mg/dL D-Dimer (<0.60) mg/L FEU VBG pH (7.31-7.41) VBG HCO3 (24-28) mmol/L Sodium (137-145) mmol/L Potassium (3.5-5.1) mmol/L Chloride (98-107) mmol/L BUN (9-20) mg/dL Creatinine (0.66-1.25) mg/dL Glucose (74-99) mg/dL POC Glucose (mg/dL) (75-99) mg/dL Plasma Lactic Acid Gilberto (0.7-2.0) mmol/L Calcium (8.4-10.2) mg/dL Total Bilirubin 6.3 H (0.2-1.3) mg/dL Conjugated Bilirubin 3.7 H (0.0-0.3) mg/dL Delta Bilirubin 2.1 H (0.0-0.2) mg/dL AST (17-59) U/L ALT (4-49) U/L Alkaline Phosphatase (38-126) U/L Ammonia (<30) umol/L Lactate Dehydrogenase (313-618) U/L Troponin I (0.000-0.034) ng/mL Total Protein (6.3-8.2) g/dL Albumin (3.5-5.0) g/dL Urine Protein (Negative) Urine Blood (Negative) Ur Leukocyte Esterase (Negative) Urine RBC (0-5) /hpf Urine WBC (0-5) /hpf Urine WBC Clumps (None) /hpf Ur Squamous Epith Cells (0-4) /hpf Urine Bacteria (None) /hpf Urine Yeast (Budding) (None) /hpf Crossmatch See Detail 10/22/21 10/22/21 10/22/21 Range/Units 20:18 20:20 20:28 WBC (3.8-10.6) k/uL RBC (4.30-5.90) m/uL Hgb (13.0-17.5) gm/dL Hct (39.0-53.0) % RDW (11.5-15.5) % Neutrophils # (Manual) (1.3-7.7) k/uL Lymphocytes # (Manual) (1.0-4.8) k/uL Monocytes # (Manual) (0-1.0) k/uL Metamyelocytes # (Man) (0) k/uL Nucleated RBCs (0-0) /100 WBC PT (9.0-12.0) sec INR (<1.2) APTT (22.0-30.0) sec Fibrinogen (200-500) mg/dL D-Dimer (<0.60) mg/L FEU VBG pH (7.31-7.41) VBG HCO3 (24-28) mmol/L Sodium (137-145) mmol/L Potassium (3.5-5.1) mmol/L Chloride (98-107) mmol/L BUN (9-20) mg/dL Creatinine (0.66-1.25) mg/dL Glucose (74-99) mg/dL POC Glucose (mg/dL) 43 L 62 L (75-99) mg/dL Plasma Lactic Acid Gilberto 4.9 H* (0.7-2.0) mmol/L Calcium (8.4-10.2) mg/dL Total Bilirubin (0.2-1.3) mg/dL Conjugated Bilirubin (0.0-0.3) mg/dL Delta Bilirubin (0.0-0.2) mg/dL AST (17-59) U/L ALT (4-49) U/L Alkaline Phosphatase (38-126) U/L Ammonia (<30) umol/L Lactate Dehydrogenase (313-618) U/L Troponin I (0.000-0.034) ng/mL Total Protein (6.3-8.2) g/dL Albumin (3.5-5.0) g/dL Urine Protein (Negative) Urine Blood (Negative) Ur Leukocyte Esterase (Negative) Urine RBC (0-5) /hpf Urine WBC (0-5) /hpf Urine WBC Clumps (None) /hpf Ur Squamous Epith Cells (0-4) /hpf Urine Bacteria (None) /hpf Urine Yeast (Budding) (None) /hpf Crossmatch 10/22/21 10/22/21 10/23/21 Range/Units 23:06 23:55 00:02 WBC (3.8-10.6) k/uL RBC (4.30-5.90) m/uL Hgb (13.0-17.5) gm/dL Hct (39.0-53.0) % RDW (11.5-15.5) % Neutrophils # (Manual) (1.3-7.7) k/uL Lymphocytes # (Manual) (1.0-4.8) k/uL Monocytes # (Manual) (0-1.0) k/uL Metamyelocytes # (Man) (0) k/uL Nucleated RBCs (0-0) /100 WBC PT (9.0-12.0) sec INR (<1.2) APTT (22.0-30.0) sec Fibrinogen (200-500) mg/dL D-Dimer (<0.60) mg/L FEU VBG pH (7.31-7.41) VBG HCO3 (24-28) mmol/L Sodium (137-145) mmol/L Potassium (3.5-5.1) mmol/L Chloride (98-107) mmol/L BUN (9-20) mg/dL Creatinine (0.66-1.25) mg/dL Glucose (74-99) mg/dL POC Glucose (mg/dL) 74 L 30 L 50 L (75-99) mg/dL Plasma Lactic Acid Gilberto (0.7-2.0) mmol/L Calcium (8.4-10.2) mg/dL Total Bilirubin (0.2-1.3) mg/dL Conjugated Bilirubin (0.0-0.3) mg/dL Delta Bilirubin (0.0-0.2) mg/dL AST (17-59) U/L ALT (4-49) U/L Alkaline Phosphatase (38-126) U/L Ammonia (<30) umol/L Lactate Dehydrogenase (313-618) U/L Troponin I (0.000-0.034) ng/mL Total Protein (6.3-8.2) g/dL Albumin (3.5-5.0) g/dL Urine Protein (Negative) Urine Blood (Negative) Ur Leukocyte Esterase (Negative) Urine RBC (0-5) /hpf Urine WBC (0-5) /hpf Urine WBC Clumps (None) /hpf Ur Squamous Epith Cells (0-4) /hpf Urine Bacteria (None) /hpf Urine Yeast (Budding) (None) /hpf Crossmatch 10/23/21 10/23/21 10/23/21 Range/Units 00:03 00:23 01:25 WBC (3.8-10.6) k/uL RBC (4.30-5.90) m/uL Hgb (13.0-17.5) gm/dL Hct (39.0-53.0) % RDW (11.5-15.5) % Neutrophils # (Manual) (1.3-7.7) k/uL Lymphocytes # (Manual) (1.0-4.8) k/uL Monocytes # (Manual) (0-1.0) k/uL Metamyelocytes # (Man) (0) k/uL Nucleated RBCs (0-0) /100 WBC PT (9.0-12.0) sec INR (<1.2) APTT (22.0-30.0) sec Fibrinogen (200-500) mg/dL D-Dimer (<0.60) mg/L FEU VBG pH (7.31-7.41) VBG HCO3 (24-28) mmol/L Sodium (137-145) mmol/L Potassium (3.5-5.1) mmol/L Chloride (98-107) mmol/L BUN (9-20) mg/dL Creatinine (0.66-1.25) mg/dL Glucose (74-99) mg/dL POC Glucose (mg/dL) 74 L 63 L (75-99) mg/dL Plasma Lactic Acid Gilberto 5.9 H* (0.7-2.0) mmol/L Calcium (8.4-10.2) mg/dL Total Bilirubin (0.2-1.3) mg/dL Conjugated Bilirubin (0.0-0.3) mg/dL Delta Bilirubin (0.0-0.2) mg/dL AST (17-59) U/L ALT (4-49) U/L Alkaline Phosphatase (38-126) U/L Ammonia (<30) umol/L Lactate Dehydrogenase (313-618) U/L Troponin I (0.000-0.034) ng/mL Total Protein (6.3-8.2) g/dL Albumin (3.5-5.0) g/dL Urine Protein (Negative) Urine Blood (Negative) Ur Leukocyte Esterase (Negative) Urine RBC (0-5) /hpf Urine WBC (0-5) /hpf Urine WBC Clumps (None) /hpf Ur Squamous Epith Cells (0-4) /hpf Urine Bacteria (None) /hpf Urine Yeast (Budding) (None) /hpf Crossmatch 10/23/21 10/23/21 10/23/21 Range/Units 01:27 01:41 03:13 WBC 52.5 H* (3.8-10.6) k/uL RBC 3.70 L (4.30-5.90) m/uL Hgb 11.3 L (13.0-17.5) gm/dL Hct 36.4 L (39.0-53.0) % RDW 17.7 H (11.5-15.5) % Neutrophils # (Manual) 49.30 H (1.3-7.7) k/uL Lymphocytes # (Manual) (1.0-4.8) k/uL Monocytes # (Manual) 2.10 H (0-1.0) k/uL Metamyelocytes # (Man) 0.53 H (0) k/uL Nucleated RBCs 1 H (0-0) /100 WBC PT (9.0-12.0) sec INR (<1.2) APTT (22.0-30.0) sec Fibrinogen (200-500) mg/dL D-Dimer (<0.60) mg/L FEU VBG pH (7.31-7.41) VBG HCO3 (24-28) mmol/L Sodium (137-145) mmol/L Potassium (3.5-5.1) mmol/L Chloride (98-107) mmol/L BUN (9-20) mg/dL Creatinine (0.66-1.25) mg/dL Glucose (74-99) mg/dL POC Glucose (mg/dL) 62 L 111 H (75-99) mg/dL Plasma Lactic Acid Gilberto (0.7-2.0) mmol/L Calcium (8.4-10.2) mg/dL Total Bilirubin (0.2-1.3) mg/dL Conjugated Bilirubin (0.0-0.3) mg/dL Delta Bilirubin (0.0-0.2) mg/dL AST (17-59) U/L ALT (4-49) U/L Alkaline Phosphatase (38-126) U/L Ammonia (<30) umol/L Lactate Dehydrogenase (313-618) U/L Troponin I (0.000-0.034) ng/mL Total Protein (6.3-8.2) g/dL Albumin (3.5-5.0) g/dL Urine Protein (Negative) Urine Blood (Negative) Ur Leukocyte Esterase (Negative) Urine RBC (0-5) /hpf Urine WBC (0-5) /hpf Urine WBC Clumps (None) /hpf Ur Squamous Epith Cells (0-4) /hpf Urine Bacteria (None) /hpf Urine Yeast (Budding) (None) /hpf Crossmatch 10/23/21 10/23/21 10/23/21 Range/Units 03:13 03:13 03:13 WBC (3.8-10.6) k/uL RBC (4.30-5.90) m/uL Hgb (13.0-17.5) gm/dL Hct (39.0-53.0) % RDW (11.5-15.5) % Neutrophils # (Manual) (1.3-7.7) k/uL Lymphocytes # (Manual) (1.0-4.8) k/uL Monocytes # (Manual) (0-1.0) k/uL Metamyelocytes # (Man) (0) k/uL Nucleated RBCs (0-0) /100 WBC PT 29.0 H (9.0-12.0) sec INR 3.0 H (<1.2) APTT (22.0-30.0) sec Fibrinogen (200-500) mg/dL D-Dimer (<0.60) mg/L FEU VBG pH (7.31-7.41) VBG HCO3 (24-28) mmol/L Sodium 135 L (137-145) mmol/L Potassium (3.5-5.1) mmol/L Chloride 96 L (98-107) mmol/L BUN 29 H (9-20) mg/dL Creatinine 4.14 H (0.66-1.25) mg/dL Glucose 103 H (74-99) mg/dL POC Glucose (mg/dL) (75-99) mg/dL Plasma Lactic Acid Gilberto (0.7-2.0) mmol/L Calcium 8.0 L (8.4-10.2) mg/dL Total Bilirubin 7.5 H (0.2-1.3) mg/dL Conjugated Bilirubin (0.0-0.3) mg/dL Delta Bilirubin (0.0-0.2) mg/dL AST 329 H (17-59) U/L ALT 93 H (4-49) U/L Alkaline Phosphatase 148 H (38-126) U/L Ammonia (<30) umol/L Lactate Dehydrogenase (313-618) U/L Troponin I 0.172 H* (0.000-0.034) ng/mL Total Protein 6.2 L (6.3-8.2) g/dL Albumin 2.6 L (3.5-5.0) g/dL Urine Protein (Negative) Urine Blood (Negative) Ur Leukocyte Esterase (Negative) Urine RBC (0-5) /hpf Urine WBC (0-5) /hpf Urine WBC Clumps (None) /hpf Ur Squamous Epith Cells (0-4) /hpf Urine Bacteria (None) /hpf Urine Yeast (Budding) (None) /hpf Crossmatch 10/23/21 10/23/21 10/23/21 Range/Units 05:05 06:17 06:58 WBC (3.8-10.6) k/uL RBC (4.30-5.90) m/uL Hgb (13.0-17.5) gm/dL Hct (39.0-53.0) % RDW (11.5-15.5) % Neutrophils # (Manual) (1.3-7.7) k/uL Lymphocytes # (Manual) (1.0-4.8) k/uL Monocytes # (Manual) (0-1.0) k/uL Metamyelocytes # (Man) (0) k/uL Nucleated RBCs (0-0) /100 WBC PT (9.0-12.0) sec INR (<1.2) APTT (22.0-30.0) sec Fibrinogen (200-500) mg/dL D-Dimer (<0.60) mg/L FEU VBG pH (7.31-7.41) VBG HCO3 (24-28) mmol/L Sodium (137-145) mmol/L Potassium (3.5-5.1) mmol/L Chloride (98-107) mmol/L BUN (9-20) mg/dL Creatinine (0.66-1.25) mg/dL Glucose (74-99) mg/dL POC Glucose (mg/dL) 71 L 73 L 65 L (75-99) mg/dL Plasma Lactic Acid Gilberto (0.7-2.0) mmol/L Calcium (8.4-10.2) mg/dL Total Bilirubin (0.2-1.3) mg/dL Conjugated Bilirubin (0.0-0.3) mg/dL Delta Bilirubin (0.0-0.2) mg/dL AST (17-59) U/L ALT (4-49) U/L Alkaline Phosphatase (38-126) U/L Ammonia (<30) umol/L Lactate Dehydrogenase (313-618) U/L Troponin I (0.000-0.034) ng/mL Total Protein (6.3-8.2) g/dL Albumin (3.5-5.0) g/dL Urine Protein (Negative) Urine Blood (Negative) Ur Leukocyte Esterase (Negative) Urine RBC (0-5) /hpf Urine WBC (0-5) /hpf Urine WBC Clumps (None) /hpf Ur Squamous Epith Cells (0-4) /hpf Urine Bacteria (None) /hpf Urine Yeast (Budding) (None) /hpf Crossmatch 10/23/21 10/23/21 Range/Units 08:57 08:57 WBC (3.8-10.6) k/uL RBC (4.30-5.90) m/uL Hgb (13.0-17.5) gm/dL Hct (39.0-53.0) % RDW (11.5-15.5) % Neutrophils # (Manual) (1.3-7.7) k/uL Lymphocytes # (Manual) (1.0-4.8) k/uL Monocytes # (Manual) (0-1.0) k/uL Metamyelocytes # (Man) (0) k/uL Nucleated RBCs (0-0) /100 WBC PT (9.0-12.0) sec INR (<1.2) APTT 47.0 H (22.0-30.0) sec Fibrinogen 581 H (200-500) mg/dL D-Dimer 1.26 H (<0.60) mg/L FEU VBG pH (7.31-7.41) VBG HCO3 (24-28) mmol/L Sodium (137-145) mmol/L Potassium (3.5-5.1) mmol/L Chloride (98-107) mmol/L BUN (9-20) mg/dL Creatinine (0.66-1.25) mg/dL Glucose (74-99) mg/dL POC Glucose (mg/dL) (75-99) mg/dL Plasma Lactic Acid Gilberto (0.7-2.0) mmol/L Calcium (8.4-10.2) mg/dL Total Bilirubin (0.2-1.3) mg/dL Conjugated Bilirubin (0.0-0.3) mg/dL Delta Bilirubin (0.0-0.2) mg/dL AST (17-59) U/L ALT (4-49) U/L Alkaline Phosphatase (38-126) U/L Ammonia (<30) umol/L Lactate Dehydrogenase 4068 H (313-618) U/L Troponin I (0.000-0.034) ng/mL Total Protein (6.3-8.2) g/dL Albumin (3.5-5.0) g/dL Urine Protein (Negative) Urine Blood (Negative) Ur Leukocyte Esterase (Negative) Urine RBC (0-5) /hpf Urine WBC (0-5) /hpf Urine WBC Clumps (None) /hpf Ur Squamous Epith Cells (0-4) /hpf Urine Bacteria (None) /hpf Urine Yeast (Budding) (None) /hpf Crossmatch Microbiology - Last 24 Hours (Table) 10/22/21 18:20 Urine Culture - Preliminary Urine,Clean Catch Diabetes panel 10/22/21 10/22/21 10/23/21 Range/Units 13:57 16:10 03:13 Sodium 131 L 132 L 135 L (137-145) mmol/L Potassium 3.1 L 2.8 L 3.5 (3.5-5.1) mmol/L Chloride 91 L 93 L 96 L (98-107) mmol/L Carbon Dioxide 28 26 22 (22-30) mmol/L BUN 29 H 28 H 29 H (9-20) mg/dL Creatinine 4.12 H 4.03 H 4.14 H (0.66-1.25) mg/dL Glucose 39 L* 57 L 103 H (74-99) mg/dL Calcium 8.8 8.2 L 8.0 L (8.4-10.2) mg/dL AST 348 H 306 H 329 H (17-59) U/L ALT 105 H 87 H 93 H (4-49) U/L Alkaline Phosphatase 157 H 121 148 H (38-126) U/L Total Protein 7.1 6.2 L 6.2 L (6.3-8.2) g/dL Albumin 3.1 L 2.6 L 2.6 L (3.5-5.0) g/dL Calcium panel 10/22/21 10/22/21 10/23/21 Range/Units 13:57 16:10 03:13 Calcium 8.8 8.2 L 8.0 L (8.4-10.2) mg/dL Albumin 3.1 L 2.6 L 2.6 L (3.5-5.0) g/dL Pituitary panel 10/22/21 10/22/21 10/23/21 Range/Units 13:57 16:10 03:13 Sodium 131 L 132 L 135 L (137-145) mmol/L Potassium 3.1 L 2.8 L 3.5 (3.5-5.1) mmol/L Chloride 91 L 93 L 96 L (98-107) mmol/L Carbon Dioxide 28 26 22 (22-30) mmol/L BUN 29 H 28 H 29 H (9-20) mg/dL Creatinine 4.12 H 4.03 H 4.14 H (0.66-1.25) mg/dL Glucose 39 L* 57 L 103 H (74-99) mg/dL Calcium 8.8 8.2 L 8.0 L (8.4-10.2) mg/dL Adrenal panel 10/22/21 10/22/21 10/22/21 Range/Units 13:57 16:10 19:11 Sodium 131 L 132 L (137-145) mmol/L Potassium 3.1 L 2.8 L (3.5-5.1) mmol/L Chloride 91 L 93 L (98-107) mmol/L Carbon Dioxide 28 26 (22-30) mmol/L BUN 29 H 28 H (9-20) mg/dL Creatinine 4.12 H 4.03 H (0.66-1.25) mg/dL Glucose 39 L* 57 L (74-99) mg/dL Calcium 8.8 8.2 L (8.4-10.2) mg/dL Total Bilirubin 6.5 H 5.6 H 6.3 H (0.2-1.3) mg/dL AST 348 H 306 H (17-59) U/L ALT 105 H 87 H (4-49) U/L Alkaline Phosphatase 157 H 121 (38-126) U/L Total Protein 7.1 6.2 L (6.3-8.2) g/dL Albumin 3.1 L 2.6 L (3.5-5.0) g/dL 10/23/21 Range/Units 03:13 Sodium 135 L (137-145) mmol/L Potassium 3.5 (3.5-5.1) mmol/L Chloride 96 L (98-107) mmol/L Carbon Dioxide 22 (22-30) mmol/L BUN 29 H (9-20) mg/dL Creatinine 4.14 H (0.66-1.25) mg/dL Glucose 103 H (74-99) mg/dL Calcium 8.0 L (8.4-10.2) mg/dL Total Bilirubin 7.5 H (0.2-1.3) mg/dL AST 329 H (17-59) U/L ALT 93 H (4-49) U/L Alkaline Phosphatase 148 H (38-126) U/L Total Protein 6.2 L (6.3-8.2) g/dL Albumin 2.6 L (3.5-5.0) g/dL - Imaging US - abdomen: report reviewed (Gallbladder ultrasound shows a clear sinuses however there is no evidence of any significant inflammatory change around the gallbladder.) Assessment and Plan Assessment: Significant leukocytosis. The patient's abdomen is soft. There is no surgical intervention planned. Apparently temps transferring were still being made today.
[2021-10-23 11:30] LABS: Anisocytosis Slight; HCT 41.8 % (39.0-53.0); HGB 12.7 gm/dL (13.0-17.5); Hypochromasia Marked; MCH 30.9 pg (25.0-35.0); MCHC 30.4 g/dL (31.0-37.0); MCV 101.4 fL (80.0-100.0); Macrocytosis Slight; Mean Platelet Volume 10.8; Platelet Count 284 k/uL (150-450); RBC 4.12 m/uL (4.30-5.90); RDW 16.7 % (11.5-15.5)
[2021-10-23 11:36] LABS: WBC 66.2 k/uL (3.8-10.6)
--- NOTE | 2021-10-23 11:49 | ECHOF ---
Referral Reason:hypotension MEASUREMENTS -------- HEIGHT: 172.7 cm WEIGHT: 104.8 kg BP: RVIDd: 2.7 cm (< 3.3) IVSd: 1.6 cm (0.6 - 1.1) LVIDd: 3.2 cm (3.9 - 5.3) LVPWd: 1.5 cm (0.6 - 1.1) IVSs: 2.0 cm LVIDs: 2.4 cm LVPWs: 1.7 cm LAESV Index (A-L): 27.63 ml/m Ao Diam: 3.5 cm (2.0 - 3.7) AV Cusp: 1.9 cm (1.5 - 2.6) LA Diam: 3.1 cm (2.7 - 3.8) MV EXCURSION: 22.213 mm (> 18.000) MV EF SLOPE: 123 mm/s (70 - 150) EPSS: 0.7 cm MV E Josiah: 1.06 m/s MV DecT: 158 ms MV A Josiah: 0.35 m/s MV E/A Ratio: 3.01 RAP: 5.00 mmHg RVSP: 35.64 mmHg FINDINGS -------- Atrial fibrillation. This was a technically adequate study. The left ventricular size is normal. There is moderate concentric left ventricular hypertrophy. O verall left ventricular systolic function is low-normal with, an EF between 50 - 55 %. Both the ruth ann n atrial pressure as well as the LV end diastolic pressure is elevated 45.06. The right ventricle is normal in size. The left atrial size is normal. Normal LA size by volume 22+/-6 ml/m2. The right atrial size is normal. The aortic valve is trileaflet and appears structurally normal. The mitral valve is normal. The mitral valve leaflets are mildly thickened. Mild mitral regurgita tion is present. The tricuspid valve appears structurally normal. Mild tricuspid regurgitation present. Right vent ricular systolic pressure is normal at < 35 mmHg. There is no pulmonic regurgitation present. The aortic root size is normal. IVC Not well visulized. There is no pericardial effusion. CONCLUSIONS -------- 1. The left ventricular size is normal. 2. There is moderate concentric left ventricular hypertrophy. 3. Overall left ventricular systolic function is low-normal with, an EF between 50 - 55 %. 4. Both the mean atrial pressure as well as the LV end diastolic pressure is elevated 45.06. 5. The mitral valve leaflets are mildly thickened. 6. Mild mitral regurgitation is present. 7. Mild tricuspid regurgitation present. 8. There is no pericardial effusion. MANAGEMENT ANALYST: Christine Gonzales RDCS
--- NOTE | 2021-10-23 11:58 | P.CRDCN ---
History of Present Illness History of present illness: This is Dr. Kingston dictating a consult on this patient The patient was interviewed and examined IMPRESSION / ASSESSMENT: Patient being treated for sepsis Currently consulted for abnormal troponins However this does not represent a true acute myocardial infarction Abnormal troponins in the setting of sepsis and abnormal renal function with reduced troponin clearance PLAN: Treat underlying cause of sepsis and septic shock From a cardiac standpoint a 2-D echo and Doppler study was ordered His LV function is normal Study EKG shows atrial fibrillation with a controlled ventricular response Initially his INR was 10.0-3.0 T should be kept appropriately anticoagulated with xarelto Atorvastatin and fenofibrate can be on hold for now Resume this once LFTs normalize Once his overall condition improves hydralazine and metoprolol can be restarted No further evaluation needed from a cardiac standpoint No further recommendations HPI patient came in from the residential with increasing confusion 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 EXAMINATION: REVIEW OF LABS, ECG & MEDICAL DATA White count 26,020 52,000 Hemoglobin 11.3 stable Initial INR greater than 10, now 3.0 Sodium 135 BUN 29 creatinine 4.14, mildly increased since yesterday Elevated lactic acid Borderline troponins, chronically elevated troponins 2-D echo shows moderate LVH with preserved LV systolic function ejection fra ction 50-55% Twelve-lead EKG shows atrial fibrillation with a controlled ventricular response that a QRS Past Medical History Past Medical History: Atrial Fibrillation, Diabetes Mellitus, Dialysis, Eye Disorder, Hyperlipidemia, Hypertension, Prostate Disorder, Renal Disease, Skin Disorder, Thyroid Disorder, Vascular Disorder Additional Past Medical History / Comment(s): hemodialysis M-W-F, anemia, legs sometimes go out and buckle per pt, wounds right foot, PICC line, dialysis fistula left upper arm History of Any Multi-Drug Resistant Organisms: ESBL Date of last positivie culture/infection: 08/23/21 ESBL E.coli MDRO Source:: Right Foot Past Surgical History: No Surgical Hx Reported Additional Past Surgical History / Comment(s): placement of peritoneal dialysis catheter and repair of umbilical hernia 07/2017, colonoscopy w/polypectomy, right upper thigh PICC line, Rt foot wound debridement 08-23-21, aortogram & PTBA 10-01-21 Past Anesthesia/Blood Transfusion Reactions: No Reported Reaction Smoking Status: Former smoker - Past Family History Father Family Medical History: Myocardial Infarction ([place]) Additional Family Medical History / Comment(s): patient has 3 brothers, 1 sister is relatively healthy has chronic back problems patient has 5 children that are healthy with no kidney diabetes or coronary artery disease. Mother Family Medical History: Coronary Artery Disease (CAD), Diabetes Mellitus Medications and Allergies Home Medications Medication Instructions Recorded Confirmed Type Folic Acid 0.4 mg PO DAILY@1700 11/04/19 10/22/21 History Calcium Acetate [PhosLo] 667 mg PO AC-TID 08/04/20 10/22/21 History Atorvastatin [Lipitor] 40 mg PO HS tab 08/07/20 10/22/21 Rx Fenofibrate Nanocrystallized 145 mg PO DAILY@0800 08/20/21 10/22/21 History [Fenofibrate] Latanoprost [Xalatan 0.005%] 1 drop BOTH EYES HS 08/20/21 10/22/21 History Midodrine [ProAmatine] 5 mg PO BID PRN 08/20/21 10/22/21 History Rivaroxaban [Xarelto] 15 mg PO DAILY@1700 08/20/21 10/22/21 History Acetaminophen Tab [Tylenol] 650 mg PO Q6HR PRN tab 08/28/21 10/22/21 Rx Melatonin 5 mg PO HS tablet 08/28/21 10/22/21 Rx INSULIN ASPART (NovoLOG) [NovoLOG See Protocol SQ ACHS PRN 09/09/21 10/22/21 History (formulary)] Magnesium Hydroxide [Milk of 7,200 ml PO DAILY PRN 09/09/21 10/22/21 History Magnesia Concentrate] bisacodyL [Dulcolax] 10 mg RECTAL DAILY PRN 09/09/21 10/22/21 History Pantoprazole [Protonix] 40 mg PO DAILY@0730 09/27/21 10/22/21 History Furosemide [Lasix] 80 mg PO DAILY@0800 10/22/21 10/22/21 History HYDROcodone/APAP 5-325MG [[place] 1 tab PO Q6HR PRN 10/22/21 10/22/21 History 5-325] Insuln Asp Prt/Insulin Aspart 4 unit SQ AC-BID@0800,1700 10/22/21 10/22/21 History [NovoLOG MIX 70-30 VIAL] Levothyroxine Sodium [Synthroid] 150 mcg PO DAILY@0630 10/22/21 10/22/21 History Liquacel 1 dose PO DIRECTED 10/22/21 10/22/21 History Menthol/Zinc Oxide [Calmoseptine 1 applic TOPICAL BID 10/22/21 10/22/21 History Ointment] Metoprolol Tartrate [Lopressor] 25 mg PO BID@0800,1700 10/22/21 10/22/21 History Sodium Chloride Irrig Solution 20 ml IRRIGATION TID 10/22/21 10/22/21 History [Saline 0.9% Irrigation] Tamsulosin [Flomax] 0.4 mg PO DAILY@0800 10/22/21 10/22/21 History hydrALAZINE HCL [Apresoline] 25 mg PO TID@0600,1400,2200 10/22/21 10/22/21 History Allergies Allergy/AdvReac Type Severity Reaction Status Date / Time No Known Allergies Allergy Verified 10/11/21 12:29 Physical Exam Vitals: Vital Signs Temp Pulse Pulse Resp BP BP Pulse Ox 10/23/21 10:15 88 23 91/48 98 10/23/21 10:00 93 17 70/51 96 10/23/21 09:45 89 20 105/56 97 10/23/21 09:30 80 5 L 107/58 98 10/23/21 09:15 89 12 103/51 96 10/23/21 09:00 83 12 102/57 96 10/23/21 08:45 90 16 94/61 97 10/23/21 08:30 84 27 H 104/52 98 10/23/21 08:15 85 29 H 100/55 97 10/23/21 08:00 90 90 9 L 102/59 96 10/23/21 07:45 88 26 H 99/48 97 10/23/21 07:30 80 26 H 101/53 95 10/23/21 07:15 80 21 95/50 97 10/23/21 07:00 80 18 100/60 95 10/23/21 06:45 85 19 101/51 96 10/23/21 06:30 86 13 99/55 95 10/23/21 06:15 92 17 95/55 96 10/23/21 06:00 87 20 98/58 96 10/23/21 05:45 84 18 93/58 96 10/23/21 05:30 82 18 83/47 97 10/23/21 05:15 75 16 91/48 97 10/23/21 05:00 80 18 93/48 96 10/23/21 04:53 97.5 F L 78 20 93/48 96 10/23/21 04:45 75 20 96/50 97 10/23/21 04:43 97.3 F L 82 18 96/50 97 10/23/21 04:30 82 17 100/50 97 10/23/21 04:15 76 18 93/52 97 10/23/21 04:00 97.5 F L 87 16 93/47 97 10/23/21 03:45 77 21 88/48 98 10/23/21 03:30 85 17 97/48 98 10/23/21 03:15 81 15 71/48 98 10/23/21 03:00 87 19 92/48 99 10/23/21 02:45 75 22 85/49 100 10/23/21 02:30 86 17 90/47 98 10/23/21 02:15 88 18 89/47 98 10/23/21 02:00 80 21 106/48 98 10/23/21 01:45 77 17 95/49 99 10/23/21 01:30 81 20 87/52 98 10/23/21 01:15 85 19 88/47 100 10/23/21 01:00 78 23 99/54 99 10/23/21 00:45 80 17 88/45 99 10/23/21 00:30 75 22 87/48 100 10/23/21 00:15 73 20 94/49 99 10/23/21 00:00 97.8 F 89 23 92/49 99 10/22/21 23:45 74 20 93/49 100 10/22/21 23:37 84 17 94/45 98 10/22/21 23:30 81 9 L 89/43 99 10/22/21 23:20 75 20 86/42 98 10/22/21 23:10 71 19 76/36 10/22/21 23:00 75 24 80/43 99 10/22/21 22:50 79 19 79/41 97 10/22/21 22:40 77 18 73/35 96 10/22/21 22:30 79 23 74/34 97 10/22/21 22:20 89 22 77/38 97 10/22/21 22:18 97.5 F L 22 85/45 10/22/21 22:10 77 22 82/39 98 10/22/21 22:00 80 20 83/40 99 10/22/21 21:50 83 17 87/44 99 10/22/21 21:40 97.5 F L 88 23 88/39 96 10/22/21 21:15 97.8 F 74 16 94/56 98 10/22/21 21:03 90 14 87/53 95 10/22/21 20:48 77 15 102/49 96 10/22/21 20:30 79 15 92/44 98 10/22/21 19:42 80 16 95/52 96 10/22/21 19:03 89 18 89/39 98 10/22/21 18:48 89/58 10/22/21 18:43 89 18 92/46 10/22/21 18:36 91 18 84/44 98 10/22/21 18:06 76 18 70/43 100 10/22/21 18:00 69/42 10/22/21 17:42 73 18 70/40 99 10/22/21 17:30 76 18 65/40 98 10/22/21 17:27 90 L 10/22/21 17:24 84 58/43 88 L 10/22/21 17:17 60/37 10/22/21 17:12 58/33 10/22/21 17:02 72 70/30 10/22/21 16:48 78 73/43 10/22/21 16:21 70 16 54/34 97 10/22/21 14:26 86 18 81/42 99 10/22/21 13:35 97.4 F L 80 18 88/49 99 Intake and Output 10/22/21 10/23/21 10/23/21 22:59 06:59 14:59 Intake Total 99.807 600 250 Output Total 5 0 0 Balance 94.807 600 250 Intake: Intake, IV Titration 99.807 600 250 Amount Dextrose 5%-0.9% NaCl 1, 75 600 250 000 ml @ 75 mls/hr IV . [id number] [facility] Rx#:[id number] Norepinephrine 32 mg In 24.807 Sodium Chloride 0.9% 218 ml @ 0.05 MCG/KG/MIN 1. 914 mls/hr IV .Q24H [facility] Rx#:[id number] Blood Product 0 Rc As-1 Unit 0 [id number] Output: Urine 5 0 0 Other: Voiding Method Indwelling Catheter Indwelling Catheter Indwelling Catheter Weight 81.647 kg 105.2 kg Results 10/23/21 08:57 10/23/21 03:13 Cardiac Enzymes 10/22/21 10/22/21 10/22/21 Range/Units 13:57 13:58 16:10 AST 348 H 306 H (17-59) U/L Lactate Dehydrogenase (313-618) U/L Troponin I 0.103 H* (0.000-0.034) ng/mL 10/23/21 10/23/21 10/23/21 Range/Units 03:13 03:13 08:57 AST 329 H (17-59) U/L Lactate Dehydrogenase 4068 H (313-618) U/L Troponin I 0.172 H* (0.000-0.034) ng/mL Coagulation 10/22/21 10/23/21 10/23/21 Range/Units 13:57 03:13 08:57 PT >130.0 H 29.0 H (9.0-12.0) sec APTT 75.3 H 47.0 H (22.0-30.0) sec CBC 10/22/21 10/22/21 10/23/21 Range/Units 13:57 19:11 03:13 WBC 17.4 H 26.8 H 52.5 H* (3.8-10.6) k/uL RBC 3.52 L 3.70 L 3.70 L (4.30-5.90) m/uL Hgb 11.4 L 11.4 L 11.3 L (13.0-17.5) gm/dL Hct 32.7 L 35.2 L 36.4 L (39.0-53.0) % Plt Count 286 286 311 (150-450) k/uL 10/23/21 Range/Units 08:57 WBC 66.2 H* (3.8-10.6) k/uL RBC 4.12 L (4.30-5.90) m/uL Hgb 12.7 L (13.0-17.5) gm/dL Hct 41.8 (39.0-53.0) % Plt Count 284 (150-450) k/uL Comprehensive Metabolic Panel 10/22/21 10/22/21 10/22/21 Range/Units 13:57 16:10 19:11 Sodium 131 L 132 L (137-145) mmol/L Potassium 3.1 L 2.8 L (3.5-5.1) mmol/L Chloride 91 L 93 L (98-107) mmol/L Carbon Dioxide 28 26 (22-30) mmol/L BUN 29 H 28 H (9-20) mg/dL Creatinine 4.12 H 4.03 H (0.66-1.25) mg/dL Glucose 39 L* 57 L (74-99) mg/dL Calcium 8.8 8.2 L (8.4-10.2) mg/dL Unconjugated Bilirubin 0.5 (0.0-1.1) mg/dL AST 348 H 306 H (17-59) U/L ALT 105 H 87 H (4-49) U/L Alkaline Phosphatase 157 H 121 (38-126) U/L Total Protein 7.1 6.2 L (6.3-8.2) g/dL Albumin 3.1 L 2.6 L (3.5-5.0) g/dL 10/23/21 Range/Units 03:13 Sodium 135 L (137-145) mmol/L Potassium 3.5 (3.5-5.1) mmol/L Chloride 96 L (98-107) mmol/L Carbon Dioxide 22 (22-30) mmol/L BUN 29 H (9-20) mg/dL Creatinine 4.14 H (0.66-1.25) mg/dL Glucose 103 H (74-99) mg/dL Calcium 8.0 L (8.4-10.2) mg/dL Unconjugated Bilirubin (0.0-1.1) mg/dL AST 329 H (17-59) U/L ALT 93 H (4-49) U/L Alkaline Phosphatase 148 H (38-126) U/L Total Protein 6.2 L (6.3-8.2) g/dL Albumin 2.6 L (3.5-5.0) g/dL Current Medications Generic Name Dose Route Start Last Admin Trade Name Freq PRN Reason Stop Dose Admin Bisacodyl 10 mg 10/23/21 09:14 Bisacodyl 10 Mg Supp RECTAL DAILY PRN Constipation Calcium Acetate 667 mg 10/23/21 12:30 Calcium Acetate 667 Mg Tab PO AC-TID [facility] Folic Acid 0.5 mg 10/23/21 17:00 Folic Acid 1 Mg Tab PO DAILY@1700 [facility] Hydrocortisone Sodium Succinate 100 mg 10/23/21 08:00 10/23/21 08:28 Hydrocortisone Succinate 100 Mg/2 Ml Vial IV 100 mg Q8HR [facility] Administration Norepinephrine Bitartrate 32 250 mls @ 1.914 mls/hr 10/22/21 16:45 10/22/21 18:36 mg/ Sodium Chloride IV 0.74 mcg/kg/min .Q24H [facility] 28.321 mls/hr Titration Protocol 0.05 MCG/KG/MIN Piperacillin Sod/Tazobactam 100 mls @ 25 mls/hr 10/23/21 00:00 10/23/21 00:36 Sod 3.375 gm/ Sodium Chloride IVPB 25 mls/hr Q12H [facility] Administration Vasopressin 20 unit/ Sodium 51 mls @ 4.59 mls/hr 10/22/21 22:30 10/23/21 04:04 Chloride IVPB 4.59 mls/hr .Q11H7M [facility] Administration 0.03 UNITS/MIN Dextrose/Sodium Chloride 1,000 mls @ 50 mls/hr 10/22/21 22:30 10/22/21 23:08 Dextrose 5%-Ns Iv Soln IV 75 mls/hr .Q20H [facility] Administration Vancomycin HCl 1,500 mg/ 250 mls @ 166.67 mls/hr 10/23/21 14:00 Sodium Chloride IVPB 10/23/21 15:29 ONCE ONE Iopamidol 30 ml 10/23/21 06:33 Iopamidol Contrast (Oral Use) Vial PO 10/24/21 06:[address] Scan Latanoprost 1 drops 10/23/21 21:00 Latanoprost 0.005% Ophth Drops 2.5 Ml Btl BOTH EYES HS [facility] Levothyroxine Sodium 150 mcg 10/24/21 06:30 Levothyroxine 75 Mcg Tab PO DAILY@0630 [facility] Midodrine 5 mg 10/23/21 09:14 Midodrine 5 Mg Tab PO BID PRN DIALYSIS DAYS Miscellaneous Information 1 each 10/22/21 18:08 Vancomycin Iv Per Pharmacy 1 Each [facility] – [place], [place] MISCELLANE DIRECTED PRN Per Protocol Protocol Naloxone HCl 0.2 mg 10/22/21 18:52 Naloxone 0.4 Mg/Ml 1 Ml Vial IV Q2M PRN Opioid Reversal Intake and Output 10/22/21 10/23/21 10/23/21 22:59 06:59 14:59 Intake Total 99.807 600 250 Output Total 5 0 0 Balance 94.807 600 250 Intake: Intake, IV Titration 99.807 600 250 Amount Dextrose 5%-0.9% NaCl 1, 75 600 250 000 ml @ 75 mls/hr IV . [id number] [facility] Rx#:[id number] Norepinephrine 32 mg In 24.807 Sodium Chloride 0.9% 218 ml @ 0.05 MCG/KG/MIN 1. 914 mls/hr IV .Q24H [facility] Rx#:[id number] Blood Product 0 Rc As-1 Unit 0 [id number] Output: Urine 5 0 0 Other: Voiding Method Indwelling Catheter Indwelling Catheter Indwelling Catheter Weight 81.647 kg 105.2 kg 10/23/21 08:57 10/23/21 03:13
--- NOTE | 2021-10-23 12:00 | P.HPIM ---
History of Present Illness H&P Date: 10/23/21 History of present illness 76 years old male patient of Dr. Vidales with past medical history of end-stage renal disease on hemodialysis Thursday and Thursday through left arm fistula, history of hypertension, hyperlipidemia, hypothyroidism, anemia of chronic disease, remote history of tobacco use history of type 2 diabetes uncontrolled diabetic foot ulcers with recent transmetatarsal amputation on 08/24 on his previous admission for possible osteomyelitis by Dr. Mota, patient has a wound VAC in place. Patient is transferred from half-way for change in mental status. Patient noticed to be confused by the family, and found to be jaundiced. On evaluation in the ER, patient was afebrile pulse 80 respiratory rate 18 blood pressure 80/49. Patietn recieved 2 L in in the ER and followed by 2 L in the ICU NS and fluids were initiaited at 75 cc / hr. Labs are reviewed, patient was found to have leukocytosis of 17.4, hemoglobin 11.4 hematocrit 32.7 sodium 131 potassium 3.1, chloride 91 BUN 29 creatinine 4.12. Patient is hypoglycemic, liver enzymes is found to be significantly elevated AST of 340 ALT 105 alkaline phosphatase 157 ammonia 57 elevated troponin of 0.103. PT is greater than 130 I doubt 10 APTT of 75 urinalysis was positive for leukocytosis esterase and WBC 182 protein 3+ suggestive of infection. Urine culture was sent. Lactic acid was 4.9 increased to 5.9 this morning. Patient had an INR of 10 status post vitamin K in the ER. Potassium was 2.8 improved to 3.5 this morning. Repeat labs this morning suggestive of leukocytosis of 52.5 hemoglobin 11.3, repeat INR was 3, PT/INR elevated PTT elevated to 47 subjective no chart 581 d-dimer mildly elevated at 1.26, GGT ordered was normal. Total bilirubin of 7.5 conjugated 3.7 unconjugated 0.5 Bilirubin of 2.1 Lipase Was Normal 88 Troponin Elevated at 0.1 Followed by 0.172 LDH Elevated at 4068. Patient is initiated on Zosyn and vancomycin for septic shock. EKG was obtained that suggested atrial fibrillation no ST-T wave changes were noted. CT of the head was obtained that suggested no acute intracranial process. Chest x-ray revealed no acute cardiopulmonary process. Right foot x-ray showed no infection or bony involvement. Gallbladder ultrasound suggestive of gallstones without convincing evidence of acute cholecystitis. No intrahepatic or extrahepatic duct bindery dilation is noted mild wall thickening was seen suggestive of hepatocellular disease. Overnight multiple attempts were made to transfer the patient to tertiary care center for possible ERCP and GI evaluation. Approximately 10 facilities were tried but no facility was ready to accept the patient. Patient was started on norepinephrine and vasopressin overnight and is currently on norepinephrine at 0.74 micrograms per KG Per minute. Vasopressin at 0.04 units per minute. Fluids were reduced to 50 mL per hour. Patient initiated on dialysis per nephrology. Detailed discussion with including surgery, cardiology and pulmonary were made. Patient appears to be in acute leucomoid reaction with multiple organ failure from septic shock. Detailed discussion was made with the family who agreed to switch patient to comfort care. They would like hospice consulted ROS Unable to obtain due to confusion Social history Patient quit smoking 42 years ago. He denies any alcohol, marijuana or illicit drug use. He is single. Family history Father at age 45 from myocardial infarction. Mother at age 67 from diabetes complications with history of coronary artery disease. Patient has 3 brothers and one sister relatively healthy has chronic back problems. Patient has 5 children with no major medical problems. Physical exam - Constitutional General appearance: Uncooperative, no acute distress, no jaundice - EENT Eyes: icteric sclerae, PERRLA, normal appearance ENT: hearing grossly normal - Neck Neck: no lymphadenopathy, normal ROM, no other, no rigidity, no stridor, no thyromegaly, left jugular central line - Respiratory Respiratory: bilateral: CTA, negative: diminished, dullness, rales, rhonchi - Cardiovascular Rhythm: regular Heart sounds: normal: S1, S2 Abnormal Heart Sounds: no systolic murmur, no diastolic murmur, no rub, no S3 Gallop, no S4 Gallop, no click, no other - Gastrointestinal General gastrointestinal: normal bowel sounds, distended, tender, bowel sounds are sluggish - Integumentary Integumentary: no rash, wound vac in place on the righ t - Neurologic Neurologic: no gross sensory or motor deficit - Musculoskeletal Musculoskeletal: gait normal, strength equal bilaterally - Psychiatric Psychiatric: A&O x's 3, appropriate affect Assessment and plan 1. Septic shock possible source of infection urine with possibe cholecystitis CT abdomen ordered but patient is too unstable to go for imaging at this point. Ascending cholangitis could not be ruled out. Gallbladder ultrasound appears to be negative for ascending cholangitis with cholelithiasis. Patient is on multiple pressors with minimal improvement. Patient is a poor prognosis. Multiple attempts were made overnight for transfer to patient for possible ERCP and GI evaluation. Family was updated on patient's poor prognosis and possible worsening over the next 24 hours. Family would like to switch patient to hospice care and make patient comfortable. Hospice consulted. Nurse updated Hold Lasix, hold metoprolol. Hydrocortisone initiated at 100 g every 8 2. Acute leukemoid reaction with possible DIC secondary to sepsis. Continue antibiotics Zosyn and vancomycin. Continue IV fluids at 50 mL per hour. Infectious disease consulted. patient possibly switch to hospice in the next 24 hours due to poor prognosis 3. Acute transaminitis with elevated INR with possible underlying hepatocellular disorder. Hepatitis panel negative. Likely secondary to severe sepsis with multiorgan failure. Gallbladder ultrasound suggestive of hepatocellular disorder no extrahepatic or intrahepatic dilation. Cholangitis appears unlikely based on get gallbladder ultrasound. CT abdomen ordered but patient is unstable to be taken to CT scan at this moment. Hold atorvastatin 4. Elevated INR with melenic stool overnight status post vitamin K one time. No GI bleeding at this moment. Continue to monitor INR 5. Acute metabolic encephalopathy likely secondary to sepsis. No episodes of seizure fall precaution to be taken. Avoid sedating medication 6. Acute GI bleed hemoglobin stable at 11.3. Continue protonix 40 IV twice a day . 4 xarelto GI not available unable to transfer patient due to COVID pendemic and unavailability of beds in [facility] at this moment 7. Tarsometatarsal amputation on the non healing wound of the right fifth metatarsal sec to diabetes and peripheral vascular disease ulcers to the right foot with wound VAC in place. Patient has completed antibiotics as outpatient. Foot xray - no active infection 8. End-stage renal disease on hemodialysis Thursday schedule. Consult with Christophe Harper on hold 9. Diabetes mellitus type 2 insulin , currently hypoglycemic secondary to se psis hold insulin 10. Hyperlipidemia. hold atorvastatin 40 mg at bedtime 11. Chronic atrial fibrillation. Hold Lopressor and hold Xarelto 15 mg daily 12. Benign prostatic hypertrophy. Hold Flomax 0.4 mg daily. 13. Hypothyroidism. Continue levothyroxine 150 g daily. 14. Hypertension. Hold hydralazine 25 mg 3 times daily. Continue midodrine 5 mg twice daily on dialysis days. 15. Glaucoma. Continue eye drops. 16. DVT prophylaxis. hold Xarelto. 17. GI prophylaxis. hold Protonix. Prognosis poor Disposition. Patient may need to be switched to hospice care if family is agreeable Past Medical History Past Medical History: Atrial Fibrillation, Diabetes Mellitus, Dialysis, Eye Disorder, Hyperlipidemia, Hypertension, Prostate Disorder, Renal Disease, Skin Disorder, Thyroid Disorder, Vascular Disorder Additional Past Medical History / Comment(s): hemodialysis M-W-F, anemia, legs sometimes go out and buckle per pt, wounds right foot, PICC line, dialysis fistula left upper arm History of Any Multi-Drug Resistant Organisms: ESBL Date of last positivie culture/infection: 08/23/21 ESBL E.coli MDRO Source:: Right Foot Past Surgical History: No Surgical Hx Reported Additional Past Surgical History / Comment(s): placement of peritoneal dialysis catheter and repair of umbilical hernia 07/2017, colonoscopy w/polypectomy, right upper thigh PICC line, Rt foot wound debridement 08-23-21, aortogram & PTBA 10-01-21 Past Anesthesia/Blood Transfusion Reactions: No Reported Reaction Smoking Status: Former smoker - Past Family History Father Family Medical History: Myocardial Infarction ([place]) Additional Family Medical History / Comment(s): patient has 3 brothers, 1 sister is relatively healthy has chronic back problems patient has 5 children that are healthy with no kidney diabetes or coronary artery disease. Mother Family Medical History: Coronary Artery Disease (CAD), Diabetes Mellitus Medications and Allergies Home Medications Medication Instructions Recorded Confirmed Type Folic Acid 0.4 mg PO DAILY@1700 11/04/19 10/22/21 History Calcium Acetate [PhosLo] 667 mg PO AC-TID 08/04/20 10/22/21 History Atorvastatin [Lipitor] 40 mg PO HS tab 08/07/20 10/22/21 Rx Fenofibrate Nanocrystallized 145 mg PO DAILY@0800 08/20/21 10/22/21 History [Fenofibrate] Latanoprost [Xalatan 0.005%] 1 drop BOTH EYES HS 08/20/21 10/22/21 History Midodrine [ProAmatine] 5 mg PO BID PRN 08/20/21 10/22/21 History Rivaroxaban [Xarelto] 15 mg PO DAILY@1700 08/20/21 10/22/21 History Acetaminophen Tab [Tylenol] 650 mg PO Q6HR PRN tab 08/28/21 10/22/21 Rx Melatonin 5 mg PO HS tablet 08/28/21 10/22/21 Rx INSULIN ASPART (NovoLOG) [NovoLOG See Protocol SQ ACHS PRN 09/09/21 10/22/21 History (formulary)] Magnesium Hydroxide [Milk of 7,200 ml PO DAILY PRN 09/09/21 10/22/21 History Magnesia Concentrate] bisacodyL [Dulcolax] 10 mg RECTAL DAILY PRN 09/09/21 10/22/21 History Pantoprazole [Protonix] 40 mg PO DAILY@0730 09/27/21 10/22/21 History Furosemide [Lasix] 80 mg PO DAILY@0800 10/22/21 10/22/21 History HYDROcodone/APAP 5-325MG [[place] 1 tab PO Q6HR PRN 10/22/21 10/22/21 History 5-325] Insuln Asp Prt/Insulin Aspart 4 unit SQ AC-BID@0800,1700 10/22/21 10/22/21 History [NovoLOG MIX 70-30 VIAL] Levothyroxine Sodium [Synthroid] 150 mcg PO DAILY@0630 10/22/21 10/22/21 History Liquacel 1 dose PO DIRECTED 10/22/21 10/22/21 History Menthol/Zinc Oxide [Calmoseptine 1 applic TOPICAL BID 10/22/21 10/22/21 History Ointment] Metoprolol Tartrate [Lopressor] 25 mg PO BID@0800,1700 10/22/21 10/22/21 History Sodium Chloride Irrig Solution 20 ml IRRIGATION TID 10/22/21 10/22/21 History [Saline 0.9% Irrigation] Tamsulosin [Flomax] 0.4 mg PO DAILY@0800 10/22/21 10/22/21 History hydrALAZINE HCL [Apresoline] 25 mg PO TID@0600,1400,2200 10/22/21 10/22/21 History Allergies Allergy/AdvReac Type Severity Reaction Status Date / Time No Known Allergies Allergy Verified 10/11/21 12:29 Physical Exam Vitals: Vital Signs Temp Pulse Resp BP BP Pulse Ox 10/23/21 06:15 92 17 95/55 96 10/23/21 06:00 87 20 98/58 96 10/23/21 05:45 84 18 93/58 96 10/23/21 05:30 82 18 83/47 97 10/23/21 05:15 75 16 91/48 97 10/23/21 05:00 80 18 93/48 96 10/23/21 04:53 97.5 F L 78 20 93/48 96 10/23/21 04:45 75 20 96/50 97 10/23/21 04:43 97.3 F L 82 18 96/50 97 10/23/21 04:30 82 17 100/50 97 10/23/21 04:15 76 18 93/52 97 10/23/21 04:00 97.5 F L 87 16 93/47 97 10/23/21 03:45 77 21 88/48 98 10/23/21 03:30 85 17 97/48 98 10/23/21 03:15 81 15 71/48 98 10/23/21 03:00 87 19 92/48 99 10/23/21 02:45 75 22 85/49 100 10/23/21 02:30 86 17 90/47 98 10/23/21 02:15 88 18 89/47 98 10/23/21 02:00 80 21 106/48 98 10/23/21 01:45 77 17 95/49 99 10/23/21 01:30 81 20 87/52 98 10/23/21 01:15 85 19 88/47 100 10/23/21 01:00 78 23 99/54 99 10/23/21 00:45 80 17 88/45 99 10/23/21 00:30 75 22 87/48 100 10/23/21 00:15 73 20 94/49 99 10/23/21 00:00 97.8 F 89 23 92/49 99 10/22/21 23:45 74 20 93/49 100 10/22/21 23:37 84 17 94/45 98 10/22/21 23:30 81 9 L 89/43 99 10/22/21 23:20 75 20 86/42 98 10/22/21 23:10 71 19 76/36 10/22/21 23:00 75 24 80/43 99 10/22/21 22:50 79 19 79/41 97 10/22/21 22:40 77 18 73/35 96 10/22/21 22:30 79 23 74/34 97 10/22/21 22:20 89 22 77/38 97 10/22/21 22:18 97.5 F L 22 85/45 10/22/21 22:10 77 22 82/39 98 10/22/21 22:00 80 20 83/40 99 10/22/21 21:50 83 17 87/44 99 10/22/21 21:40 97.5 F L 88 23 88/39 96 10/22/21 21:15 97.8 F 74 16 94/56 98 10/22/21 21:03 90 14 87/53 95 10/22/21 20:48 77 15 102/49 96 10/22/21 20:30 79 15 92/44 98 10/22/21 19:42 80 16 95/52 96 10/22/21 19:03 89 18 89/39 98 10/22/21 18:48 89/58 10/22/21 18:43 89 18 92/46 10/22/21 18:36 91 18 84/44 98 10/22/21 18:06 76 18 70/43 100 10/22/21 18:00 69/42 10/22/21 17:42 73 18 70/40 99 10/22/21 17:30 76 18 65/40 98 10/22/21 17:27 90 L 10/22/21 17:24 84 58/43 88 L 10/22/21 17:17 60/37 10/22/21 17:12 58/33 10/22/21 17:02 72 70/30 10/22/21 16:48 78 73/43 10/22/21 16:21 70 16 54/34 97 10/22/21 14:26 86 18 81/42 99 10/22/21 13:35 97.4 F L 80 18 88/49 99 Intake and Output 10/22/21 10/22/21 10/23/21 14:59 22:59 06:59 Intake Total 99.807 600 Output Total 5 0 Balance 94.807 600 Intake: Intake, IV Titration 99.807 600 Amount Dextrose 5%-0.9% NaCl 1, 75 600 000 ml @ 75 mls/hr IV . [id number] ALLISON Rx#:[id number] Norepinephrine 32 mg In 24.807 Sodium Chloride 0.9% 218 ml @ 0.05 MCG/KG/MIN 1. 914 mls/hr IV .Q24H ALLISON Rx#:[id number] Blood Product 0 Rc As-1 Unit 0 [id number] Output: Urine 5 0 Other: Voiding Method Indwelling Catheter Indwelling Catheter Weight 81.647 kg 81.647 kg 105.2 kg Results CBC & Chem 7: 10/23/21 08:57 10/23/21 03:13 Labs: Abnormal Lab Results - Last 24 Hours (Table) 10/22/21 10/22/21 10/22/21 Range/Units 13:57 13:57 13:57 WBC 17.4 H (3.8-10.6) k/uL RBC 3.52 L (4.30-5.90) m/uL Hgb 11.4 L (13.0-17.5) gm/dL Hct 32.7 L (39.0-53.0) % RDW 17.9 H (11.5-15.5) % Neutrophils # (Manual) 16.10 H (1.3-7.7) k/uL Lymphocytes # (Manual) 0.52 L (1.0-4.8) k/uL Monocytes # (Manual) (0-1.0) k/uL Metamyelocytes # (Man) (0) k/uL Nucleated RBCs (0-0) /100 WBC PT >130.0 H (9.0-12.0) sec INR >10.0 H* (<1.2) APTT 75.3 H (22.0-30.0) sec VBG pH (7.31-7.41) VBG HCO3 (24-28) mmol/L Sodium 131 L (137-145) mmol/L Potassium 3.1 L (3.5-5.1) mmol/L Chloride 91 L (98-107) mmol/L BUN 29 H (9-20) mg/dL Creatinine 4.12 H (0.66-1.25) mg/dL Glucose 39 L* (74-99) mg/dL POC Glucose (mg/dL) (75-99) mg/dL Plasma Lactic Acid Gilberto (0.7-2.0) mmol/L Calcium (8.4-10.2) mg/dL Total Bilirubin 6.5 H (0.2-1.3) mg/dL Conjugated Bilirubin (0.0-0.3) mg/dL Delta Bilirubin (0.0-0.2) mg/dL AST 348 H (17-59) U/L ALT 105 H (4-49) U/L Alkaline Phosphatase 157 H (38-126) U/L Ammonia (<30) umol/L Troponin I (0.000-0.034) ng/mL Total Protein (6.3-8.2) g/dL Albumin 3.1 L (3.5-5.0) g/dL Urine Protein (Negative) Urine Blood (Negative) Ur Leukocyte Esterase (Negative) Urine RBC (0-5) /hpf Urine WBC (0-5) /hpf Urine WBC Clumps (None) /hpf Ur Squamous Epith Cells (0-4) /hpf Urine Bacteria (None) /hpf Urine Yeast (Budding) (None) /hpf Crossmatch 10/22/21 10/22/21 10/22/21 Range/Units 13:57 13:57 13:58 WBC (3.8-10.6) k/uL RBC (4.30-5.90) m/uL Hgb (13.0-17.5) gm/dL Hct (39.0-53.0) % RDW (11.5-15.5) % Neutrophils # (Manual) (1.3-7.7) k/uL Lymphocytes # (Manual) (1.0-4.8) k/uL Monocytes # (Manual) (0-1.0) k/uL Metamyelocytes # (Man) (0) k/uL Nucleated RBCs (0-0) /100 WBC PT (9.0-12.0) sec INR (<1.2) APTT (22.0-30.0) sec VBG pH 7.50 H (7.31-7.41) VBG HCO3 29 H (24-28) mmol/L Sodium (137-145) mmol/L Potassium (3.5-5.1) mmol/L Chloride (98-107) mmol/L BUN (9-20) mg/dL Creatinine (0.66-1.25) mg/dL Glucose (74-99) mg/dL POC Glucose (mg/dL) (75-99) mg/dL Plasma Lactic Acid Gilberto 3.2 H* (0.7-2.0) mmol/L Calcium (8.4-10.2) mg/dL Total Bilirubin (0.2-1.3) mg/dL Conjugated Bilirubin (0.0-0.3) mg/dL Delta Bilirubin (0.0-0.2) mg/dL AST (17-59) U/L ALT (4-49) U/L Alkaline Phosphatase (38-126) U/L Ammonia 57 H (<30) umol/L Troponin I 0.103 H* (0.000-0.034) ng/mL Total Protein (6.3-8.2) g/dL Albumin (3.5-5.0) g/dL Urine Protein (Negative) Urine Blood (Negative) Ur Leukocyte Esterase (Negative) Urine RBC (0-5) /hpf Urine WBC (0-5) /hpf Urine WBC Clumps (None) /hpf Ur Squamous Epith Cells (0-4) /hpf Urine Bacteria (None) /hpf Urine Yeast (Budding) (None) /hpf Crossmatch 10/22/21 10/22/21 10/22/21 Range/Units 14:50 16:10 16:11 WBC (3.8-10.6) k/uL RBC (4.30-5.90) m/uL Hgb (13.0-17.5) gm/dL Hct (39.0-53.0) % RDW (11.5-15.5) % Neutrophils # (Manual) (1.3-7.7) k/uL Lymphocytes # (Manual) (1.0-4.8) k/uL Monocytes # (Manual) (0-1.0) k/uL Metamyelocytes # (Man) (0) k/uL Nucleated RBCs (0-0) /100 WBC PT (9.0-12.0) sec INR (<1.2) APTT (22.0-30.0) sec VBG pH (7.31-7.41) VBG HCO3 (24-28) mmol/L Sodium 132 L (137-145) mmol/L Potassium 2.8 L (3.5-5.1) mmol/L Chloride 93 L (98-107) mmol/L BUN 28 H (9-20) mg/dL Creatinine 4.03 H (0.66-1.25) mg/dL Glucose 57 L (74-99) mg/dL POC Glucose (mg/dL) 145 H (75-99) mg/dL Plasma Lactic Acid Gilberto 4.4 H* (0.7-2.0) mmol/L Calcium 8.2 L (8.4-10.2) mg/dL Total Bilirubin 5.6 H (0.2-1.3) mg/dL Conjugated Bilirubin (0.0-0.3) mg/dL Delta Bilirubin (0.0-0.2) mg/dL AST 306 H (17-59) U/L ALT 87 H (4-49) U/L Alkaline Phosphatase (38-126) U/L Ammonia (<30) umol/L Troponin I (0.000-0.034) ng/mL Total Protein 6.2 L (6.3-8.2) g/dL Albumin 2.6 L (3.5-5.0) g/dL Urine Protein (Negative) Urine Blood (Negative) Ur Leukocyte Esterase (Negative) Urine RBC (0-5) /hpf Urine WBC (0-5) /hpf Urine WBC Clumps (None) /hpf Ur Squamous Epith Cells (0-4) /hpf Urine Bacteria (None) /hpf Urine Yeast (Budding) (None) /hpf Crossmatch 10/22/21 10/22/21 10/22/21 Range/Units 16:20 18:20 18:23 WBC (3.8-10.6) k/uL RBC (4.30-5.90) m/uL Hgb (13.0-17.5) gm/dL Hct (39.0-53.0) % RDW (11.5-15.5) % Neutrophils # (Manual) (1.3-7.7) k/uL Lymphocytes # (Manual) (1.0-4.8) k/uL Monocytes # (Manual) (0-1.0) k/uL Metamyelocytes # (Man) (0) k/uL Nucleated RBCs (0-0) /100 WBC PT (9.0-12.0) sec INR (<1.2) APTT (22.0-30.0) sec VBG pH (7.31-7.41) VBG HCO3 (24-28) mmol/L Sodium (137-145) mmol/L Potassium (3.5-5.1) mmol/L Chloride (98-107) mmol/L BUN (9-20) mg/dL Creatinine (0.66-1.25) mg/dL Glucose (74-99) mg/dL POC Glucose (mg/dL) 50 L (75-99) mg/dL Plasma Lactic Acid Gilberto (0.7-2.0) mmol/L Calcium (8.4-10.2) mg/dL Total Bilirubin (0.2-1.3) mg/dL Conjugated Bilirubin (0.0-0.3) mg/dL Delta Bilirubin (0.0-0.2) mg/dL AST (17-59) U/L ALT (4-49) U/L Alkaline Phosphatase (38-126) U/L Ammonia (<30) umol/L Troponin I (0.000-0.034) ng/mL Total Protein (6.3-8.2) g/dL Albumin (3.5-5.0) g/dL Urine Protein 3+ H (Negative) Urine Blood Large H (Negative) Ur Leukocyte Esterase Large H (Negative) Urine RBC 21 H (0-5) /hpf Urine WBC >182 H (0-5) /hpf Urine WBC Clumps Many H (None) /hpf Ur Squamous Epith Cells 7 H (0-4) /hpf Urine Bacteria Many H (None) /hpf Urine Yeast (Budding) Few H (None) /hpf Crossmatch See Detail 10/22/21 10/22/21 10/22/21 Range/Units 19:11 19:11 19:11 WBC 26.8 H (3.8-10.6) k/uL RBC 3.70 L (4.30-5.90) m/uL Hgb 11.4 L (13.0-17.5) gm/dL Hct 35.2 L (39.0-53.0) % RDW 18.1 H (11.5-15.5) % Neutrophils # (Manual) 24.10 H (1.3-7.7) k/uL Lymphocytes # (Manual) 0.54 L (1.0-4.8) k/uL Monocytes # (Manual) 1.34 H (0-1.0) k/uL Metamyelocytes # (Man) 0.27 H (0) k/uL Nucleated RBCs (0-0) /100 WBC PT (9.0-12.0) sec INR (<1.2) APTT (22.0-30.0) sec VBG pH (7.31-7.41) VBG HCO3 (24-28) mmol/L Sodium (137-145) mmol/L Potassium (3.5-5.1) mmol/L Chloride (98-107) mmol/L BUN (9-20) mg/dL Creatinine (0.66-1.25) mg/dL Glucose (74-99) mg/dL POC Glucose (mg/dL) (75-99) mg/dL Plasma Lactic Acid Gilberto (0.7-2.0) mmol/L Calcium (8.4-10.2) mg/dL Total Bilirubin 6.3 H (0.2-1.3) mg/dL Conjugated Bilirubin 3.7 H (0.0-0.3) mg/dL Delta Bilirubin 2.1 H (0.0-0.2) mg/dL AST (17-59) U/L ALT (4-49) U/L Alkaline Phosphatase (38-126) U/L Ammonia (<30) umol/L Troponin I (0.000-0.034) ng/mL Total Protein (6.3-8.2) g/dL Albumin (3.5-5.0) g/dL Urine Protein (Negative) Urine Blood (Negative) Ur Leukocyte Esterase (Negative) Urine RBC (0-5) /hpf Urine WBC (0-5) /hpf Urine WBC Clumps (None) /hpf Ur Squamous Epith Cells (0-4) /hpf Urine Bacteria (None) /hpf Urine Yeast (Budding) (None) /hpf Crossmatch See Detail 10/22/21 10/22/21 10/22/21 Range/Units 20:18 20:20 20:28 WBC (3.8-10.6) k/uL RBC (4.30-5.90) m/uL Hgb (13.0-17.5) gm/dL Hct (39.0-53.0) % RDW (11.5-15.5) % Neutrophils # (Manual) (1.3-7.7) k/uL Lymphocytes # (Manual) (1.0-4.8) k/uL Monocytes # (Manual) (0-1.0) k/uL Metamyelocytes # (Man) (0) k/uL Nucleated RBCs (0-0) /100 WBC PT (9.0-12.0) sec INR (<1.2) APTT (22.0-30.0) sec VBG pH (7.31-7.41) VBG HCO3 (24-28) mmol/L Sodium (137-145) mmol/L Potassium (3.5-5.1) mmol/L Chloride (98-107) mmol/L BUN (9-20) mg/dL Creatinine (0.66-1.25) mg/dL Glucose (74-99) mg/dL POC Glucose (mg/dL) 43 L 62 L (75-99) mg/dL Plasma Lactic Acid Gilberto 4.9 H* (0.7-2.0) mmol/L Calcium (8.4-10.2) mg/dL Total Bilirubin (0.2-1.3) mg/dL Conjugated Bilirubin (0.0-0.3) mg/dL Delta Bilirubin (0.0-0.2) mg/dL AST (17-59) U/L ALT (4-49) U/L Alkaline Phosphatase (38-126) U/L Ammonia (<30) umol/L Troponin I (0.000-0.034) ng/mL Total Protein (6.3-8.2) g/dL Albumin (3.5-5.0) g/dL Urine Protein (Negative) Urine Blood (Negative) Ur Leukocyte Esterase (Negative) Urine RBC (0-5) /hpf Urine WBC (0-5) /hpf Urine WBC Clumps (None) /hpf Ur Squamous Epith Cells (0-4) /hpf Urine Bacteria (None) /hpf Urine Yeast (Budding) (None) /hpf Crossmatch 10/22/21 10/22/21 10/23/21 Range/Units 23:06 23:55 00:02 WBC (3.8-10.6) k/uL RBC (4.30-5.90) m/uL Hgb (13.0-17.5) gm/dL Hct (39.0-53.0) % RDW (11.5-15.5) % Neutrophils # (Manual) (1.3-7.7) k/uL Lymphocytes # (Manual) (1.0-4.8) k/uL Monocytes # (Manual) (0-1.0) k/uL Metamyelocytes # (Man) (0) k/uL Nucleated RBCs (0-0) /100 WBC PT (9.0-12.0) sec INR (<1.2) APTT (22.0-30.0) sec VBG pH (7.31-7.41) VBG HCO3 (24-28) mmol/L Sodium (137-145) mmol/L Potassium (3.5-5.1) mmol/L Chloride (98-107) mmol/L BUN (9-20) mg/dL Creatinine (0.66-1.25) mg/dL Glucose (74-99) mg/dL POC Glucose (mg/dL) 74 L 30 L 50 L (75-99) mg/dL Plasma Lactic Acid Gilberto (0.7-2.0) mmol/L Calcium (8.4-10.2) mg/dL Total Bilirubin (0.2-1.3) mg/dL Conjugated Bilirubin (0.0-0.3) mg/dL Delta Bilirubin (0.0-0.2) mg/dL AST (17-59) U/L ALT (4-49) U/L Alkaline Phosphatase (38-126) U/L Ammonia (<30) umol/L Troponin I (0.000-0.034) ng/mL Total Protein (6.3-8.2) g/dL Albumin (3.5-5.0) g/dL Urine Protein (Negative) Urine Blood (Negative) Ur Leukocyte Esterase (Negative) Urine RBC (0-5) /hpf Urine WBC (0-5) /hpf Urine WBC Clumps (None) /hpf Ur Squamous Epith Cells (0-4) /hpf Urine Bacteria (None) /hpf Urine Yeast (Budding) (None) /hpf Crossmatch 10/23/21 10/23/21 10/23/21 Range/Units 00:03 00:23 01:25 WBC (3.8-10.6) k/uL RBC (4.30-5.90) m/uL Hgb (13.0-17.5) gm/dL Hct (39.0-53.0) % RDW (11.5-15.5) % Neutrophils # (Manual) (1.3-7.7) k/uL Lymphocytes # (Manual) (1.0-4.8) k/uL Monocytes # (Manual) (0-1.0) k/uL Metamyelocytes # (Man) (0) k/uL Nucleated RBCs (0-0) /100 WBC PT (9.0-12.0) sec INR (<1.2) APTT (22.0-30.0) sec VBG pH (7.31-7.41) VBG HCO3 (24-28) mmol/L Sodium (137-145) mmol/L Potassium (3.5-5.1) mmol/L Chloride (98-107) mmol/L BUN (9-20) mg/dL Creatinine (0.66-1.25) mg/dL Glucose (74-99) mg/dL POC Glucose (mg/dL) 74 L 63 L (75-99) mg/dL Plasma Lactic Acid Gilberto 5.9 H* (0.7-2.0) mmol/L Calcium (8.4-10.2) mg/dL Total Bilirubin (0.2-1.3) mg/dL Conjugated Bilirubin (0.0-0.3) mg/dL Delta Bilirubin (0.0-0.2) mg/dL AST (17-59) U/L ALT (4-49) U/L Alkaline Phosphatase (38-126) U/L Ammonia (<30) umol/L Troponin I (0.000-0.034) ng/mL Total Protein (6.3-8.2) g/dL Albumin (3.5-5.0) g/dL Urine Protein (Negative) Urine Blood (Negative) Ur Leukocyte Esterase (Negative) Urine RBC (0-5) /hpf Urine WBC (0-5) /hpf Urine WBC Clumps (None) /hpf Ur Squamous Epith Cells (0-4) /hpf Urine Bacteria (None) /hpf Urine Yeast (Budding) (None) /hpf Crossmatch 10/23/21 10/23/21 10/23/21 Range/Units 01:27 01:41 03:13 WBC 52.5 H* (3.8-10.6) k/uL RBC 3.70 L (4.30-5.90) m/uL Hgb 11.3 L (13.0-17.5) gm/dL Hct 36.4 L (39.0-53.0) % RDW 17.7 H (11.5-15.5) % Neutrophils # (Manual) 49.30 H (1.3-7.7) k/uL Lymphocytes # (Manual) (1.0-4.8) k/uL Monocytes # (Manual) 2.10 H (0-1.0) k/uL Metamyelocytes # (Man) 0.53 H (0) k/uL Nucleated RBCs 1 H (0-0) /100 WBC PT (9.0-12.0) sec INR (<1.2) APTT (22.0-30.0) sec VBG pH (7.31-7.41) VBG HCO3 (24-28) mmol/L Sodium (137-145) mmol/L Potassium (3.5-5.1) mmol/L Chloride (98-107) mmol/L BUN (9-20) mg/dL Creatinine (0.66-1.25) mg/dL Glucose (74-99) mg/dL POC Glucose (mg/dL) 62 L 111 H (75-99) mg/dL Plasma Lactic Acid Gilberto (0.7-2.0) mmol/L Calcium (8.4-10.2) mg/dL Total Bilirubin (0.2-1.3) mg/dL Conjugated Bilirubin (0.0-0.3) mg/dL Delta Bilirubin (0.0-0.2) mg/dL AST (17-59) U/L ALT (4-49) U/L Alkaline Phosphatase (38-126) U/L Ammonia (<30) umol/L Troponin I (0.000-0.034) ng/mL Total Protein (6.3-8.2) g/dL Albumin (3.5-5.0) g/dL Urine Protein (Negative) Urine Blood (Negative) Ur Leukocyte Esterase (Negative) Urine RBC (0-5) /hpf Urine WBC (0-5) /hpf Urine WBC Clumps (None) /hpf Ur Squamous Epith Cells (0-4) /hpf Urine Bacteria (None) /hpf Urine Yeast (Budding) (None) /hpf Crossmatch 10/23/21 10/23/21 10/23/21 Range/Units 03:13 03:13 03:13 WBC (3.8-10.6) k/uL RBC (4.30-5.90) m/uL Hgb (13.0-17.5) gm/dL Hct (39.0-53.0) % RDW (11.5-15.5) % Neutrophils # (Manual) (1.3-7.7) k/uL Lymphocytes # (Manual) (1.0-4.8) k/uL Monocytes # (Manual) (0-1.0) k/uL Metamyelocytes # (Man) (0) k/uL Nucleated RBCs (0-0) /100 WBC PT 29.0 H (9.0-12.0) sec INR 3.0 H (<1.2) APTT (22.0-30.0) sec VBG pH (7.31-7.41) VBG HCO3 (24-28) mmol/L Sodium 135 L (137-145) mmol/L Potassium (3.5-5.1) mmol/L Chloride 96 L (98-107) mmol/L BUN 29 H (9-20) mg/dL Creatinine 4.14 H (0.66-1.25) mg/dL Glucose 103 H (74-99) mg/dL POC Glucose (mg/dL) (75-99) mg/dL Plasma Lactic Acid Gilberto (0.7-2.0) mmol/L Calcium 8.0 L (8.4-10.2) mg/dL Total Bilirubin 7.5 H (0.2-1.3) mg/dL Conjugated Bilirubin (0.0-0.3) mg/dL Delta Bilirubin (0.0-0.2) mg/dL AST 329 H (17-59) U/L ALT 93 H (4-49) U/L Alkaline Phosphatase 148 H (38-126) U/L Ammonia (<30) umol/L Troponin I 0.172 H* (0.000-0.034) ng/mL Total Protein 6.2 L (6.3-8.2) g/dL Albumin 2.6 L (3.5-5.0) g/dL Urine Protein (Negative) Urine Blood (Negative) Ur Leukocyte Esterase (Negative) Urine RBC (0-5) /hpf Urine WBC (0-5) /hpf Urine WBC Clumps (None) /hpf Ur Squamous Epith Cells (0-4) /hpf Urine Bacteria (None) /hpf Urine Yeast (Budding) (None) /hpf Crossmatch 10/23/21 10/23/21 Range/Units 05:05 06:17 WBC (3.8-10.6) k/uL RBC (4.30-5.90) m/uL Hgb (13.0-17.5) gm/dL Hct (39.0-53.0) % RDW (11.5-15.5) % Neutrophils # (Manual) (1.3-7.7) k/uL Lymphocytes # (Manual) (1.0-4.8) k/uL Monocytes # (Manual) (0-1.0) k/uL Metamyelocytes # (Man) (0) k/uL Nucleated RBCs (0-0) /100 WBC PT (9.0-12.0) sec INR (<1.2) APTT (22.0-30.0) sec VBG pH (7.31-7.41) VBG HCO3 (24-28) mmol/L Sodium (137-145) mmol/L Potassium (3.5-5.1) mmol/L Chloride (98-107) mmol/L BUN (9-20) mg/dL Creatinine (0.66-1.25) mg/dL Glucose (74-99) mg/dL POC Glucose (mg/dL) 71 L 73 L (75-99) mg/dL Plasma Lactic Acid Gilberto (0.7-2.0) mmol/L Calcium (8.4-10.2) mg/dL Total Bilirubin (0.2-1.3) mg/dL Conjugated Bilirubin (0.0-0.3) mg/dL Delta Bilirubin (0.0-0.2) mg/dL AST (17-59) U/L ALT (4-49) U/L Alkaline Phosphatase (38-126) U/L Ammonia (<30) umol/L Troponin I (0.000-0.034) ng/mL Total Protein (6.3-8.2) g/dL Albumin (3.5-5.0) g/dL Urine Protein (Negative) Urine Blood (Negative) Ur Leukocyte Esterase (Negative) Urine RBC (0-5) /hpf Urine WBC (0-5) /hpf Urine WBC Clumps (None) /hpf Ur Squamous Epith Cells (0-4) /hpf Urine Bacteria (None) /hpf Urine Yeast (Budding) (None) /hpf Crossmatch Microbiology - Last 24 Hours (Table) 10/22/21 18:20 Urine Culture - Preliminary Urine,Clean Catch Thrombosis Risk Factor Assmnt - Choose All That Apply Each Factor Represents 1 point: Sepsis (< 1month) Each Risk Factor Represents 3 Points: Age 75 years or older Thrombosis Risk Factor Assessment Total Risk Factor Score: 4 Thrombosis Risk Factor Assessment Level: Moderate Risk
[2021-10-23 12:18] LABS: Glucose,Whole Blood 82 mg/dL (75-99)
--- NOTE | 2021-10-23 12:27 | P.CNPUL ---
History of Present Illness Consult date: 10/23/21 Requesting physician: Jj Jackman Reason for consult: other (Critical care management) Chief complaint: Altered mental status History of present illness: This is a 76-year-old male patient with a history of diabetes mellitus, atrial fibrillation, end-stage renal disease on hemodialysis Thursday, hyperlipidemia, hypertension, hypothyroidism Former smoker, former alcohol abuse. 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 He was brought back to the emergency room yesterday with altered mental status. Computed tomography scan of the brain revealed age-related atrophic and chronic small vessel ischemic changes without acute intracranial process. X-ray of the foot revealed amputation deformity but no focal bone destruction. Chest x-ray revealed mild cardiomegaly. No pulmonary consolidation or heart failure. White count 26.8. Hemoglobin 11.4. INR greater than 10. Sodium 132. Potassium 2.8. Creatinine 4.03. Glucose 57. Lactic acid 4.9. AST 306. ALT 87. Ammonia level LVII. Troponin 0.103, 0.172. Urinalysis with many WBCs and many bacteria. Root virus by PCR not detected. The patient was found to be hypotensive and in septic shock. An ultrasound of the gallbladder revealed acute cholecystitis with no intrahepatic or extrahepatic biliary dilatation. There is mild wall thickening which could be result had a hepatocellular disease. ERCP was recommended and the patient was to be transferred to a tertiary care center for GI coverage which we do not have at this time. Approximately 10 facilities were contacted without any bed availability. He was admitted to the intensive care unit. He is seen today in consultation. He remains with altered mental status. Unable to obtain any information from the patient. If he is maintaining O2 saturations in the 90s on 2 L/m per nasal cannula. He is receiving D5 0.9 normal saline at 50 mL per hour. He is requiring norepinephrine at 60 mcg/m. Vasopressin at 0.03 units per minute. He is on Solu-Cortef 100 mg IV every 8 hours. He's been initiated on vancomycin and Zosyn. He did receive vitamin K. His electrolytes are being replaced. He is receiving fluid resuscitation. Labs reveal a WBC of 66.2. Hemoglobin 12.7. Platelet count 284. Neutrophils 49. INR 3.0. Fibrinogen 581. D-dimer 1.26. Sodium 135. Potassium 3.5. Creatinine 4.14. Glucose 103. Lactic acid 5.9. AST 329. ALT 93. Alk phos 148. LDH 4068. Total bilirubin 7.5. Conjugated bilirubin 3.7. Review of Systems ROS unobtainable: due to mental status Past Medical History Past Medical History: Atrial Fibrillation, Diabetes Mellitus, Dialysis, Eye Disorder, Hyperlipidemia, Hypertension, Prostate Disorder, Renal Disease, Skin Disorder, Thyroid Disorder, Vascular Disorder Additional Past Medical History / Comment(s): hemodialysis M-W-, anemia, legs sometimes go out and buckle per pt, wounds right foot, PICC line, dialysis fistula left upper arm History of Any Multi-Drug Resistant Organisms: ESBL Date of last positivie culture/infection: 08/23/21 ESBL E.coli MDRO Source:: Right Foot Past Surgical History: No Surgical Hx Reported Additional Past Surgical History / Comment(s): placement of peritoneal dialysis catheter and repair of umbilical hernia 07/2017, colonoscopy w/polypectomy, right upper thigh PICC line, Rt foot wound debridement 08-23-21, aortogram & PTBA 10-01-21 Past Anesthesia/Blood Transfusion Reactions: No Reported Reaction Smoking Status: Former smoker - Past Family History Father Family Medical History: Myocardial Infarction ([place]) Additional Family Medical History / Comment(s): patient has 3 brothers, 1 sister is relatively healthy has chronic back problems patient has 5 children that are healthy with no kidney diabetes or coronary artery disease. Mother Family Medical History: Coronary Artery Disease (CAD), Diabetes Mellitus Medications and Allergies Home Medications Medication Instructions Recorded Confirmed Type Folic Acid 0.4 mg PO DAILY@1700 11/04/19 10/22/21 History Calcium Acetate [PhosLo] 667 mg PO AC-TID 08/04/20 10/22/21 History Atorvastatin [Lipitor] 40 mg PO HS tab 08/07/20 10/22/21 Rx Fenofibrate Nanocrystallized 145 mg PO DAILY@0800 08/20/21 10/22/21 History [Fenofibrate] Latanoprost [Xalatan 0.005%] 1 drop BOTH EYES HS 08/20/21 10/22/21 History Midodrine [ProAmatine] 5 mg PO BID PRN 08/20/21 10/22/21 History Rivaroxaban [Xarelto] 15 mg PO DAILY@1700 08/20/21 10/22/21 History Acetaminophen Tab [Tylenol] 650 mg PO Q6HR PRN tab 08/28/21 10/22/21 Rx Melatonin 5 mg PO HS tablet 08/28/21 10/22/21 Rx INSULIN ASPART (NovoLOG) [NovoLOG See Protocol SQ ACHS PRN 09/09/21 10/22/21 History (formulary)] Magnesium Hydroxide [Milk of 7,200 ml PO DAILY PRN 09/09/21 10/22/21 History Magnesia Concentrate] bisacodyL [Dulcolax] 10 mg RECTAL DAILY PRN 09/09/21 10/22/21 History Pantoprazole [Protonix] 40 mg PO DAILY@0730 09/27/21 10/22/21 History Furosemide [Lasix] 80 mg PO DAILY@0800 10/22/21 10/22/21 History HYDROcodone/APAP 5-325MG [[place] 1 tab PO Q6HR PRN 10/22/21 10/22/21 History 5-325] Insuln Asp Prt/Insulin Aspart 4 unit SQ AC-BID@0800,1700 10/22/21 10/22/21 History [NovoLOG MIX 70-30 VIAL] Levothyroxine Sodium [Synthroid] 150 mcg PO DAILY@0630 10/22/21 10/22/21 History Liquacel 1 dose PO DIRECTED 10/22/21 10/22/21 History Menthol/Zinc Oxide [Calmoseptine 1 applic TOPICAL BID 10/22/21 10/22/21 History Ointment] Metoprolol Tartrate [Lopressor] 25 mg PO BID@0800,1700 10/22/21 10/22/21 History Sodium Chloride Irrig Solution 20 ml IRRIGATION TID 10/22/21 10/22/21 History [Saline 0.9% Irrigation] Tamsulosin [Flomax] 0.4 mg PO DAILY@0800 10/22/21 10/22/21 History hydrALAZINE HCL [Apresoline] 25 mg PO TID@0600,1400,2200 10/22/21 10/22/21 History Allergies Allergy/AdvReac Type Severity Reaction Status Date / Time No Known Allergies Allergy Verified 10/11/21 12:29 Physical Exam Vitals: Vital Signs Temp Pulse Pulse Resp BP BP Pulse Ox 10/23/21 10:15 88 23 91/48 98 10/23/21 10:00 93 17 70/51 96 10/23/21 09:45 89 20 105/56 97 10/23/21 09:30 80 5 L 107/58 98 10/23/21 09:15 89 12 103/51 96 10/23/21 09:00 83 12 102/57 96 10/23/21 08:45 90 16 94/61 97 10/23/21 08:30 84 27 H 104/52 98 10/23/21 08:15 85 29 H 100/55 97 10/23/21 08:00 90 90 9 L 102/59 96 10/23/21 07:45 88 26 H 99/48 97 10/23/21 07:30 80 26 H 101/53 95 10/23/21 07:15 80 21 95/50 97 10/23/21 07:00 80 18 100/60 95 10/23/21 06:45 85 19 101/51 96 10/23/21 06:30 86 13 99/55 95 10/23/21 06:15 92 17 95/55 96 10/23/21 06:00 87 20 98/58 96 10/23/21 05:45 84 18 93/58 96 10/23/21 05:30 82 18 83/47 97 10/23/21 05:15 75 16 91/48 97 10/23/21 05:00 80 18 93/48 96 10/23/21 04:53 97.5 F L 78 20 93/48 96 10/23/21 04:45 75 20 96/50 97 10/23/21 04:43 97.3 F L 82 18 96/50 97 10/23/21 04:30 82 17 100/50 97 10/23/21 04:15 76 18 93/52 97 10/23/21 04:00 97.5 F L 87 16 93/47 97 10/23/21 03:45 77 21 88/48 98 10/23/21 03:30 85 17 97/48 98 10/23/21 03:15 81 15 71/48 98 10/23/21 03:00 87 19 92/48 99 10/23/21 02:45 75 22 85/49 100 10/23/21 02:30 86 17 90/47 98 10/23/21 02:15 88 18 89/47 98 10/23/21 02:00 80 21 106/48 98 10/23/21 01:45 77 17 95/49 99 10/23/21 01:30 81 20 87/52 98 10/23/21 01:15 85 19 88/47 100 10/23/21 01:00 78 23 99/54 99 10/23/21 00:45 80 17 88/45 99 10/23/21 00:30 75 22 87/48 100 10/23/21 00:15 73 20 94/49 99 10/23/21 00:00 97.8 F 89 23 92/49 99 10/22/21 23:45 74 20 93/49 100 10/22/21 23:37 84 17 94/45 98 10/22/21 23:30 81 9 L 89/43 99 10/22/21 23:20 75 20 86/42 98 10/22/21 23:10 71 19 76/36 10/22/21 23:00 75 24 80/43 99 10/22/21 22:50 79 19 79/41 97 10/22/21 22:40 77 18 73/35 96 10/22/21 22:30 79 23 74/34 97 10/22/21 22:20 89 22 77/38 97 10/22/21 22:18 97.5 F L 22 85/45 10/22/21 22:10 77 22 82/39 98 10/22/21 22:00 80 20 83/40 99 10/22/21 21:50 83 17 87/44 99 10/22/21 21:40 97.5 F L 88 23 88/39 96 10/22/21 21:15 97.8 F 74 16 94/56 98 10/22/21 21:03 90 14 87/53 95 10/22/21 20:48 77 15 102/49 96 10/22/21 20:30 79 15 92/44 98 10/22/21 19:42 80 16 95/52 96 10/22/21 19:03 89 18 89/39 98 10/22/21 18:48 89/58 10/22/21 18:43 89 18 92/46 10/22/21 18:36 91 18 84/44 98 10/22/21 18:06 76 18 70/43 100 10/22/21 18:00 69/42 10/22/21 17:42 73 18 70/40 99 10/22/21 17:30 76 18 65/40 98 10/22/21 17:27 90 L 10/22/21 17:24 84 58/43 88 L 10/22/21 17:17 60/37 10/22/21 17:12 58/33 10/22/21 17:02 72 70/30 10/22/21 16:48 78 73/43 10/22/21 16:21 70 16 54/34 97 10/22/21 14:26 86 18 81/42 99 10/22/21 13:35 97.4 F L 80 18 88/49 99 Intake and Output 10/22/21 10/23/21 10/23/21 22:59 06:59 14:59 Intake Total 99.807 600 250 Output Total 5 0 0 Balance 94.807 600 250 Intake: Intake, IV Titration 99.807 600 250 Amount Dextrose 5%-0.9% NaCl 1, 75 600 250 000 ml @ 75 mls/hr IV . [id number] ALLISON Rx#:[id number] Norepinephrine 32 mg In 24.807 Sodium Chloride 0.9% 218 ml @ 0.05 MCG/KG/MIN 1. 914 mls/hr IV .Q24H ALLISON Rx#:[id number] Blood Product 0 Rc As-1 Unit 0 [id number] Output: Urine 5 0 0 Other: Voiding Method Indwelling Catheter Indwelling Catheter Indwelling Catheter Weight 81.647 kg 105.2 kg GENERAL EXAM: 76-year-old male patient, mumbling, confused, on 2 L nasal cannula. HEAD: Normocephalic. EYES: Normal reaction of pupils, equal size. NOSE: Clear with pink turbinates. THROAT: No erythema or exudates. NECK: No masses, no JVD. CHEST: No chest wall deformity. LUNGS: Equal air entry with no crackles, wheeze, rhonchi or dullness. CVS: S1 and S2 normal with no audible murmur, regular rhythm. ABDOMEN: No hepatosplenomegaly, normal bowel sounds, no guarding or rigidity. SPINE: No scoliosis or deformity SKIN: No rashes CENTRAL NERVOUS SYSTEM: No focal deficits, tone is normal in all 4 extremities. EXTREMITIES: Wound VAC to the right foot. There is no peripheral edema. No clubbing, no cyanosis. Peripheral pulses are intact. Results - Laboratory Findings CBC and BMP: 10/23/21 08:57 10/23/21 03:13 PT/INR, D-dimer PT 29.0 sec (9.0-12.0) H 10/23/21 03:13 INR 3.0 (<1.2) H 10/23/21 03:13 D-Dimer 1.26 mg/L FEU (<0.60) H 10/23/21 08:57 Abnormal lab findings: Abnormal Labs 10/22/21 10/22/21 10/22/21 13:57 13:57 13:57 WBC 17.4 H RBC 3.52 L Hgb 11.4 L Hct 32.7 L MCV MCHC RDW 17.9 H Neutrophils # (Manual) 16.10 H Lymphocytes # (Manual) 0.52 L Monocytes # (Manual) Metamyelocytes # (Man) Nucleated RBCs PT >130.0 H INR >10.0 H* APTT 75.3 H Fibrinogen D-Dimer VBG pH VBG HCO3 Sodium 131 L Potassium 3.1 L Chloride 91 L BUN 29 H Creatinine 4.12 H Glucose 39 L* POC Glucose (mg/dL) Plasma Lactic Acid Gilberto Calcium Total Bilirubin 6.5 H Conjugated Bilirubin Delta Bilirubin AST 348 H ALT 105 H Alkaline Phosphatase 157 H Ammonia Lactate Dehydrogenase Troponin I Total Protein Albumin 3.1 L Urine Protein Urine Blood Ur Leukocyte Esterase Urine RBC Urine WBC Urine WBC Clumps Ur Squamous Epith Cells Urine Bacteria Urine Yeast (Budding) Crossmatch 10/22/21 10/22/21 10/22/21 13:57 13:57 13:58 WBC RBC Hgb Hct MCV MCHC RDW Neutrophils # (Manual) Lymphocytes # (Manual) Monocytes # (Manual) Metamyelocytes # (Man) Nucleated RBCs PT INR APTT Fibrinogen D-Dimer VBG pH 7.50 H VBG HCO3 29 H Sodium Potassium Chloride BUN Creatinine Glucose POC Glucose (mg/dL) Plasma Lactic Acid Gilberto 3.2 H* Calcium Total Bilirubin Conjugated Bilirubin Delta Bilirubin AST ALT Alkaline Phosphatase Ammonia 57 H Lactate Dehydrogenase Troponin I 0.103 H* Total Protein Albumin Urine Protein Urine Blood Ur Leukocyte Esterase Urine RBC Urine WBC Urine WBC Clumps Ur Squamous Epith Cells Urine Bacteria Urine Yeast (Budding) Crossmatch 10/22/21 10/22/21 10/22/21 14:50 16:10 16:11 WBC RBC Hgb Hct MCV MCHC RDW Neutrophils # (Manual) Lymphocytes # (Manual) Monocytes # (Manual) Metamyelocytes # (Man) Nucleated RBCs PT INR APTT Fibrinogen D-Dimer VBG pH VBG HCO3 Sodium 132 L Potassium 2.8 L Chloride 93 L BUN 28 H Creatinine 4.03 H Glucose 57 L POC Glucose (mg/dL) 145 H Plasma Lactic Acid Gilberto 4.4 H* Calcium 8.2 L Total Bilirubin 5.6 H Conjugated Bilirubin Delta Bilirubin AST 306 H ALT 87 H Alkaline Phosphatase Ammonia Lactate Dehydrogenase Troponin I Total Protein 6.2 L Albumin 2.6 L Urine Protein Urine Blood Ur Leukocyte Esterase Urine RBC Urine WBC Urine WBC Clumps Ur Squamous Epith Cells Urine Bacteria Urine Yeast (Budding) Crossmatch 10/22/21 10/22/21 10/22/21 16:20 18:20 18:23 WBC RBC Hgb Hct MCV MCHC RDW Neutrophils # (Manual) Lymphocytes # (Manual) Monocytes # (Manual) Metamyelocytes # (Man) Nucleated RBCs PT INR APTT Fibrinogen D-Dimer VBG pH VBG HCO3 Sodium Potassium Chloride BUN Creatinine Glucose POC Glucose (mg/dL) 50 L Plasma Lactic Acid Gilberto Calcium Total Bilirubin Conjugated Bilirubin Delta Bilirubin AST ALT Alkaline Phosphatase Ammonia Lactate Dehydrogenase Troponin I Total Protein Albumin Urine Protein 3+ H Urine Blood Large H Ur Leukocyte Esterase Large H Urine RBC 21 H Urine WBC >182 H Urine WBC Clumps Many H Ur Squamous Epith Cells 7 H Urine Bacteria Many H Urine Yeast (Budding) Few H Crossmatch See Detail 10/22/21 10/22/21 10/22/21 19:11 19:11 19:11 WBC 26.8 H RBC 3.70 L Hgb 11.4 L Hct 35.2 L MCV MCHC RDW 18.1 H Neutrophils # (Manual) 24.10 H Lymphocytes # (Manual) 0.54 L Monocytes # (Manual) 1.34 H Metamyelocytes # (Man) 0.27 H Nucleated RBCs PT INR APTT Fibrinogen D-Dimer VBG pH VBG HCO3 Sodium Potassium Chloride BUN Creatinine Glucose POC Glucose (mg/dL) Plasma Lactic Acid Gilberto Calcium Total Bilirubin 6.3 H Conjugated Bilirubin 3.7 H Delta Bilirubin 2.1 H AST ALT Alkaline Phosphatase Ammonia Lactate Dehydrogenase Troponin I Total Protein Albumin Urine Protein Urine Blood Ur Leukocyte Esterase Urine RBC Urine WBC Urine WBC Clumps Ur Squamous Epith Cells Urine Bacteria Urine Yeast (Budding) Crossmatch See Detail 10/22/21 10/22/21 10/22/21 20:18 20:20 20:28 WBC RBC Hgb Hct MCV MCHC RDW Neutrophils # (Manual) Lymphocytes # (Manual) Monocytes # (Manual) Metamyelocytes # (Man) Nucleated RBCs PT INR APTT Fibrinogen D-Dimer VBG pH VBG HCO3 Sodium Potassium Chloride BUN Creatinine Glucose POC Glucose (mg/dL) 43 L 62 L Plasma Lactic Acid Gilberto 4.9 H* Calcium Total Bilirubin Conjugated Bilirubin Delta Bilirubin AST ALT Alkaline Phosphatase Ammonia Lactate Dehydrogenase Troponin I Total Protein Albumin Urine Protein Urine Blood Ur Leukocyte Esterase Urine RBC Urine WBC Urine WBC Clumps Ur Squamous Epith Cells Urine Bacteria Urine Yeast (Budding) Crossmatch 10/22/21 10/22/21 10/23/21 23:06 23:55 00:02 WBC RBC Hgb Hct MCV MCHC RDW Neutrophils # (Manual) Lymphocytes # (Manual) Monocytes # (Manual) Metamyelocytes # (Man) Nucleated RBCs PT INR APTT Fibrinogen D-Dimer VBG pH VBG HCO3 Sodium Potassium Chloride BUN Creatinine Glucose POC Glucose (mg/dL) 74 L 30 L 50 L Plasma Lactic Acid Gilberto Calcium Total Bilirubin Conjugated Bilirubin Delta Bilirubin AST ALT Alkaline Phosphatase Ammonia Lactate Dehydrogenase Troponin I Total Protein Albumin Urine Protein Urine Blood Ur Leukocyte Esterase Urine RBC Urine WBC Urine WBC Clumps Ur Squamous Epith Cells Urine Bacteria Urine Yeast (Budding) Crossmatch 10/23/21 10/23/21 10/23/21 00:03 00:23 01:25 WBC RBC Hgb Hct MCV MCHC RDW Neutrophils # (Manual) Lymphocytes # (Manual) Monocytes # (Manual) Metamyelocytes # (Man) Nucleated RBCs PT INR APTT Fibrinogen D-Dimer VBG pH VBG HCO3 Sodium Potassium Chloride BUN Creatinine Glucose POC Glucose (mg/dL) 74 L 63 L Plasma Lactic Acid Gilberto 5.9 H* Calcium Total Bilirubin Conjugated Bilirubin Delta Bilirubin AST ALT Alkaline Phosphatase Ammonia Lactate Dehydrogenase Troponin I Total Protein Albumin Urine Protein Urine Blood Ur Leukocyte Esterase Urine RBC Urine WBC Urine WBC Clumps Ur Squamous Epith Cells Urine Bacteria Urine Yeast (Budding) Crossmatch 10/23/21 10/23/21 10/23/21 01:27 01:41 03:13 WBC 52.5 H* RBC 3.70 L Hgb 11.3 L Hct 36.4 L MCV MCHC RDW 17.7 H Neutrophils # (Manual) 49.30 H Lymphocytes # (Manual) Monocytes # (Manual) 2.10 H Metamyelocytes # (Man) 0.53 H Nucleated RBCs 1 H PT INR APTT Fibrinogen D-Dimer VBG pH VBG HCO3 Sodium Potassium Chloride BUN Creatinine Glucose POC Glucose (mg/dL) 62 L 111 H Plasma Lactic Acid Gilberto Calcium Total Bilirubin Conjugated Bilirubin Delta Bilirubin AST ALT Alkaline Phosphatase Ammonia Lactate Dehydrogenase Troponin I Total Protein Albumin Urine Protein Urine Blood Ur Leukocyte Esterase Urine RBC Urine WBC Urine WBC Clumps Ur Squamous Epith Cells Urine Bacteria Urine Yeast (Budding) Crossmatch 10/23/21 10/23/21 10/23/21 03:13 03:13 03:13 WBC RBC Hgb Hct MCV MCHC RDW Neutrophils # (Manual) Lymphocytes # (Manual) Monocytes # (Manual) Metamyelocytes # (Man) Nucleated RBCs PT 29.0 H INR 3.0 H APTT Fibrinogen D-Dimer VBG pH VBG HCO3 Sodium 135 L Potassium Chloride 96 L BUN 29 H Creatinine 4.14 H Glucose 103 H POC Glucose (mg/dL) Plasma Lactic Acid Gilberto Calcium 8.0 L Total Bilirubin 7.5 H Conjugated Bilirubin Delta Bilirubin AST 329 H ALT 93 H Alkaline Phosphatase 148 H Ammonia Lactate Dehydrogenase Troponin I 0.172 H* Total Protein 6.2 L Albumin 2.6 L Urine Protein Urine Blood Ur Leukocyte Esterase Urine RBC Urine WBC Urine WBC Clumps Ur Squamous Epith Cells Urine Bacteria Urine Yeast (Budding) Crossmatch 10/23/21 10/23/21 10/23/21 05:05 06:17 06:58 WBC RBC Hgb Hct MCV MCHC RDW Neutrophils # (Manual) Lymphocytes # (Manual) Monocytes # (Manual) Metamyelocytes # (Man) Nucleated RBCs PT INR APTT Fibrinogen D-Dimer VBG pH VBG HCO3 Sodium Potassium Chloride BUN Creatinine Glucose POC Glucose (mg/dL) 71 L 73 L 65 L Plasma Lactic Acid Gilberto Calcium Total Bilirubin Conjugated Bilirubin Delta Bilirubin AST ALT Alkaline Phosphatase Ammonia Lactate Dehydrogenase Troponin I Total Protein Albumin Urine Protein Urine Blood Ur Leukocyte Esterase Urine RBC Urine WBC Urine WBC Clumps Ur Squamous Epith Cells Urine Bacteria Urine Yeast (Budding) Crossmatch 10/23/21 10/23/21 10/23/21 08:57 08:57 08:57 WBC 66.2 H* RBC 4.12 L Hgb 12.7 L Hct MCV 101.4 H MCHC 30.4 L RDW 16.7 H Neutrophils # (Manual) Lymphocytes # (Manual) Monocytes # (Manual) Metamyelocytes # (Man) Nucleated RBCs PT INR APTT 47.0 H Fibrinogen 581 H D-Dimer 1.26 H VBG pH VBG HCO3 Sodium Potassium Chloride BUN Creatinine Glucose POC Glucose (mg/dL) Plasma Lactic Acid Gilberto Calcium Total Bilirubin Conjugated Bilirubin Delta Bilirubin AST ALT Alkaline Phosphatase Ammonia Lactate Dehydrogenase 4068 H Troponin I Total Protein Albumin Urine Protein Urine Blood Ur Leukocyte Esterase Urine RBC Urine WBC Urine WBC Clumps Ur Squamous Epith Cells Urine Bacteria Urine Yeast (Budding) Crossmatch - Diagnostic Findings Chest x-ray: image reviewed Assessment and Plan Assessment: 1 Acute septic shock significant hypotension of unclear etiology, suspect possible cholecystitis with gallstones. No intrahepatic or extrahepatic biliary dilatation. Mild wall thickening favored secondary to underlying hepatocellular disease. Elevated LFTs and elevated bilirubin and initiated on vancomycin and Zosyn. Requiring pressor support with both norepinephrine and vasopressin along with hydrocortisone 2 Acute leukocytosis with current white count 66.2 3 Coagulopathy secondary to elevated liver enzymes with INR initially greater than 10, received vitamin K current INR 3.0. 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 Joshua Continue vancomycin and Zosyn Continue vasopressin and norepinephrine Continue fluid resuscitation Infectious disease consultation Hoping to transfer to tertiary care center for GI coverage Overall prognosis is quite guarded We'll continue to follow and make further recommendations based on his clinical status I, the cosigning physician, performed a history & physical examination of the patient. Lungs sounds are clear. Maintaining good O2 saturations in the 90s on 2 L/m per nasal cannula. I discussed the assessment and plan of care with my nurse practitioner, Karina Whaley. I attest to the above consultation as dictated by her. Time with Patient: Greater than 30
[2021-10-23] MEDS ORDERED: CALCIUM ACETATE 667 MG TAB PO SCH (12:30)
[2021-10-23] MEDS: NOREPINEPHRINE 32 MG in SODIUM CHLORIDE 0.9% 218 ML IV SCH (13:17)
[2021-10-23 13:59] LABS: Band Neutrophils % 25 %; Lymphocytes # (M) 1.99 k/uL (1.0-4.8); Monocytes # (M) 2.65 k/uL (0-1.0); Neutrophils % (M) 68 %; Nucleated Red Blood Cells 0 /100 WBC (0-0); Total Cells Counted 100; Toxic Granulation Present
[2021-10-23 14:00] LABS: Anisocytosis (M) Present; Polychromasia Present
[2021-10-23] MEDS ORDERED: VANCOMYCIN 1,500 MG in SODIUM CHLORIDE 0.9% 250 ML IVPB ONE (14:00)
--- NOTE | 2021-10-23 15:47 | P.CON ---
Consult Note - . Consult date: 10/23/21 Assessment/Plan:: Wound care consultation: Date of consult: 10/23/2021 Reason for consult: Buttocks ulcers and open foot ulceration status post transmetatarsal amputation. This gentleman is very ill with numerous severe comorbidities. On review with the nursing staff I was told that the patient is very ill and in the process of being made hospice care. We therefore did not move him about enough to fully examine his ulcerations. I reviewed pictures with the nurse and his previous recent procedures. If, in fact, the patient is made hospice, I would recommend using triad on the buttocks ulcer with careful avoidance of pressure points. I would also simply utilize absorptive silver and gauze dressings on the foot rather than the complexity of a wound VAC. If the situation were to change I would still use triad on the buttocks but would continue the wound VAC for his foot ulceration. I would continue on the same settings as before which generally would be black foam and 125 mmHg pressure. Please feel free to contact me if there are any further questions.
[2021-10-23 16:33] VITALS: TEMP 98.5
[2021-10-23] MEDS ORDERED: FOLIC ACID 1 MG TAB PO SCH (17:00)
[2021-10-23 21:00] VITALS: BP 69/37; PULSE 28; RESP 0
[2021-10-23] MEDS ORDERED: LATANOPROST 0.005% OPHTH DROPS 2.5 ML BTL BOTH EYES SCH (21:00)
[2021-10-24] MEDS ORDERED: LEVOTHYROXINE 75 MCG TAB PO SCH (06:30)
--- NOTE | 2021-10-24 21:58 | P.DS ---
Providers Date of admission: 10/22/21 18:52 Attending physician: Jj Jackman MD Consults: 10/22/21 18:52 Consult Physician Stat Consulting Provider: Imer Joshua Consult Reason/Comments: Septic shock, acute hepatic failure. Do you want consulting provider notified?: Already Contacted Consult Physician Urgent Consulting Provider: Alex Day Consult Reason/Comments: GI bleed, acute hepatic failure, septic shock Do you want consulting provider notified?: Yes Consult Physician Urgent Consulting Provider: [facility] Consult Reason/Comments: elevated troponin, likely type 2 nstemi Do you want consulting provider notified?: Yes 10/23/21 06:10 Consult Physician Routine Consulting Provider: Dayne Salinas Consult Reason/Comments: pt is an established dialysis pt. Do you want consulting provider notified?: Yes 10/23/21 06:21 Consult Physician Routine Consulting Provider: Mónica Lynn Consult Reason/Comments: septic shock Do you want consulting provider notified?: Yes Primary care physician: [facility] Course: summary History of present illness 76 years old male patient of Dr. Vidales with past medical history of end-stage renal disease on hemodialysis Thursday and Thursday through left arm fistula, history of hypertension, hyperlipidemia, hypothyroidism, anemia of chronic disease, remote history of tobacco use history of type 2 diabetes uncontrolled diabetic foot ulcers with recent transmetatarsal amputation on 08/24 on his previous admission for possible osteomyelitis by Dr. Mota, patient has a wound VAC in place. Patient is transferred from intermediate for change in mental status. Patient noticed to be confused by the family, and found to be jaundiced. On evaluation in the ER, patient was afebrile pulse 80 respiratory rate 18 blood pressure 80/49. Patietn recieved 2 L in in the ER and followed by 2 L in the ICU NS and fluids were initiaited at 75 cc / hr. Labs are reviewed, patient was found to have leukocytosis of 17.4, hemoglobin 11.4 hematocrit 32.7 sodium 131 potassium 3.1, chloride 91 BUN 29 creatinine 4.12. Patient is hypoglycemic, liver enzymes is found to be significantly elevated AST of 340 ALT 105 alkaline phosphatase 157 ammonia 57 elevated troponin of 0.103. PT is greater than 130 I doubt 10 APTT of 75 urinalysis was positive for leukocytosis esterase and WBC 182 protein 3+ suggestive of infection. Urine culture was sent. Lactic acid was 4.9 increased to 5.9 this morning. Patient had an INR of 10 status post vitamin K in the ER. Potassium was 2.8 improved to 3.5 this morning. Repeat labs this morning suggestive of leukocytosis of 52.5 hemoglobin 11.3, repeat INR was 3, PT/INR elevated PTT elevated to 47 subjective no chart 581 d-dimer mildly elevated at 1.26, GGT ordered was normal. Total bilirubin of 7.5 conjugated 3.7 unconjugated 0.5 Bilirubin of 2.1 Lipase Was Normal 88 Troponin Elevated at 0.1 Followed by 0.172 LDH Elevated at 4068. Patient is initiated on Zosyn and vancomycin for septic shock. EKG was obtained that suggested atrial fibrillation no ST-T wave changes were noted. CT of the head was obtained that suggested no acute intracranial process. Chest x-ray revealed no acute cardiopulmonary process. Right foot x-ray showed no infection or bony involvement. Gallbladder ultrasound suggestive of gallstones without convincing evidence of acute cholecystitis. No intrahepatic or extrahepatic duct bindery dilation is noted mild wall thickening was seen suggestive of hepatocellular disease. Overnight multiple attempts were made to transfer the patient to tertiary care center for possible ERCP and GI evaluation. Approximately 10 facilities were tried but no facility was ready to accept the patient. Patient was started on n orepinephrine and vasopressin overnight and is currently on norepinephrine at 0.74 micrograms per KG Per minute. Vasopressin at 0.04 units per minute. Fluids were reduced to 50 mL per hour. Patient initiated on dialysis per nephrology. Detailed discussion with including surgery, cardiology and pulmonary were made. Patient appears to be in acute leucomoid reaction with multiple organ failure from septic shock. Detailed discussion was made with the family who agreed to switch patient to comfort care. They would like hospice consulted 10/24 Patient passed awy on comfort care measures on 20 :15 pm. follow nurses note for details Deth diagnosis 1. Septic shock possible source of infection urine with possibe cholecystitis 2. Acute leukemoid reaction with possible DIC secondary to sepsis. 3. Acute transaminitis with elevated INR with possible underlying hepatocellular disorder. 4. Elevated INR with melenic stool overnight status post vitamin K 5. Acute metabolic encephalopathy likely secondary to sepsis. 6. Acute GI bleed hemoglobin stable at 11.3. 7. Tarsometatarsal amputation on the non healing wound of the right fifth metatarsal sec to diabetes and peripheral vascular disease ulcers to the right foot with wound VAC in place. 8. End-stage renal disease on hemodialysis Thursday schedule. 9. Diabetes mellitus type 2 insulin , currently hypoglycemic secondary to sepsis 10. Hyperlipidemia. 11. Chronic atrial fibrillation. 12. Benign prostatic hypertrophy. 13. Hypothyroidism. 14. Hypertension. 15. Glaucoma. Prognosis poor Patient Condition at Discharge: Critical Plan - Discharge Summary New Discharge Prescriptions: No Action Folic Acid 0.4 mg PO DAILY@1700 Calcium Acetate [PhosLo] 667 mg PO AC-TID Atorvastatin [Lipitor] 40 mg PO HS tab Midodrine [ProAmatine] 5 mg PO BID PRN PRN Reason: DIALYSIS DAYS Rivaroxaban [Xarelto] 15 mg PO DAILY@1700 Melatonin 5 mg PO HS tablet INSULIN ASPART (NovoLOG) [NovoLOG (formulary)] See Protocol SQ ACHS PRN PRN Reason: Blood Sugar - High HYDROcodone/APAP 5-325MG [[place] 5-325] 1 tab PO Q6HR PRN PRN Reason: Pain hydrALAZINE HCL [Apresoline] 25 mg PO TID@0600,1400,2200 Furosemide [Lasix] 80 mg PO DAILY@0800 Menthol/Zinc Oxide [Calmoseptine Ointment] 1 applic TOPICAL BID Latanoprost [Xalatan 0.005%] 1 drop BOTH EYES HS Fenofibrate Nanocrystallized [Fenofibrate] 145 mg PO DAILY@0800 Acetaminophen Tab [Tylenol] 650 mg PO Q6HR PRN tab PRN Reason: Mild Pain Or Fever > 100.5 bisacodyL [Dulcolax] 10 mg RECTAL DAILY PRN PRN Reason: Constipation Magnesium Hydroxide [Milk of Magnesia Concentrate] 7,200 ml PO DAILY PRN PRN Reason: after 2 days w/ no BM Pantoprazole [Protonix] 40 mg PO DAILY@0730 Sodium Chloride Irrig Solution [Saline 0.9% Irrigation] 20 ml IRRIGATION TID Insuln Asp Prt/Insulin Aspart [NovoLOG MIX 70-30 VIAL] 4 unit SQ AC- BID@0800,1700 Metoprolol Tartrate [Lopressor] 25 mg PO BID@0800,1700 Liquacel 1 dose PO DIRECTED Levothyroxine Sodium [Synthroid] 150 mcg PO DAILY@0630 Tamsulosin [Flomax] 0.4 mg PO DAILY@0800 Discharge Medication List Folic Acid 0.4 mg PO DAILY@1700 11/04/19 [History] Calcium Acetate [PhosLo] 667 mg PO AC-TID 08/04/20 [History] Atorvastatin [Lipitor] 40 mg PO HS tab 08/07/20 [Rx] Fenofibrate Nanocrystallized [Fenofibrate] 145 mg PO DAILY@0800 08/20/21 [History] Latanoprost [Xalatan 0.005%] 1 drop BOTH EYES HS 08/20/21 [History] Midodrine [ProAmatine] 5 mg PO BID PRN 08/20/21 [History] Rivaroxaban [Xarelto] 15 mg PO DAILY@1700 08/20/21 [History] Acetaminophen Tab [Tylenol] 650 mg PO Q6HR PRN tab 08/28/21 [Rx] Melatonin 5 mg PO HS tablet 08/28/21 [Rx] INSULIN ASPART (NovoLOG) [NovoLOG (formulary)] See Protocol SQ ACHS PRN 09/09/21 [History] Magnesium Hydroxide [Milk of Magnesia Concentrate] 7,200 ml PO DAILY PRN 09/09/21 [History] bisacodyL [Dulcolax] 10 mg RECTAL DAILY PRN 09/09/21 [History] Pantoprazole [Protonix] 40 mg PO DAILY@0730 09/27/21 [History] Furosemide [Lasix] 80 mg PO DAILY@0800 10/22/21 [History] HYDROcodone/APAP 5-325MG [[place] 5-325] 1 tab PO Q6HR PRN 10/22/21 [History] Insuln Asp Prt/Insulin Aspart [NovoLOG MIX 70-30 VIAL] 4 unit SQ AC- BID@0800,1700 10/22/21 [History] Levothyroxine Sodium [Synthroid] 150 mcg PO DAILY@0630 10/22/21 [History] Liquacel 1 dose PO DIRECTED 10/22/21 [History] Menthol/Zinc Oxide [Calmoseptine Ointment] 1 applic TOPICAL BID 10/22/21 [Histo ry] Metoprolol Tartrate [Lopressor] 25 mg PO BID@0800,1700 10/22/21 [History] Sodium Chloride Irrig Solution [Saline 0.9% Irrigation] 20 ml IRRIGATION TID 10/22/21 [History] Tamsulosin [Flomax] 0.4 mg PO DAILY@0800 10/22/21 [History] hydrALAZINE HCL [Apresoline] 25 mg PO TID@0600,1400,2200 10/22/21 [History] Follow up Appointment(s)/Referral(s): Andrade Walter MD [Primary Care Provider] - 1-2 days Discharge Disposition: HOME WITH HOSPICE
== END 2021-10-23 16:27 | disposition hospice, home (50) | DRG 871 ==
LOC: EC 13:30 → 2SICU 18:52
PROVIDERS: ADMIT Internal Medicine; ATTEND Internal Medicine
PROC: 02HV33Z Insertion of Infusion Device into Superior Vena Cava, Percutaneous Approach (ICD-10-PCS; principal; 2021-10-22)
PROC: 3E043XZ Introduction of Vasopressor into Central Vein, Percutaneous Approach (ICD-10-PCS; 2021-10-22)
PROC: 5A1D70Z Performance of Urinary Filtration, Intermittent, Less than 6 Hours Per Day (ICD-10-PCS; 2021-10-23)
DX: A41.9 Sepsis, unspecified organism (principal); R65.21 Severe sepsis with septic shock; G93.41 Metabolic encephalopathy; D65 Disseminated intravascular coagulation [defibrination syndrome]; K72.00 Acute and subacute hepatic failure without coma; I21.A1 Myocardial infarction type 2; N18.6 End stage renal disease; E87.1 Hypo-osmolality and hyponatremia; E87.2 Acidosis; I12.0 Hypertensive chronic kidney disease with stage 5 chronic kidney disease or end stage renal disease; I48.20 Chronic atrial fibrillation, unspecified; K80.00 Calculus of gallbladder with acute cholecystitis without obstruction; K83.09 Other cholangitis; Z20.822 Contact with and (suspected) exposure to COVID-19; E11.22 Type 2 diabetes mellitus with diabetic chronic kidney disease; E03.9 Hypothyroidism, unspecified; E78.5 Hyperlipidemia, unspecified; E87.6 Hypokalemia; D63.8 Anemia in other chronic diseases classified elsewhere; E11.649 Type 2 diabetes mellitus with hypoglycemia without coma; E11.51 Type 2 diabetes mellitus with diabetic peripheral angiopathy without gangrene; E11.621 Type 2 diabetes mellitus with foot ulcer; E87.70 Fluid overload, unspecified; L08.9 Local infection of the skin and subcutaneous tissue, unspecified; L98.419 Non-pressure chronic ulcer of buttock with unspecified severity; E11.65 Type 2 diabetes mellitus with hyperglycemia; H40.9 Unspecified glaucoma; M89.8X9 Other specified disorders of bone, unspecified site; N40.0 Benign prostatic hyperplasia without lower urinary tract symptoms; Z51.5 Encounter for palliative care; Z79.01 Long term (current) use of anticoagulants; Z79.4 Long term (current) use of insulin; Z79.890 Hormone replacement therapy; Z79.899 Other long term (current) drug therapy; Z99.2 Dependence on renal dialysis; Z87.891 Personal history of nicotine dependence; Z89.431 Acquired absence of right foot; Z82.49 Family history of ischemic heart disease and other diseases of the circulatory system; Z83.3 Family history of diabetes mellitus
CPT/HCPCS: 36415; 36556; 70450; 71045; 76705; 80053; 80143; 81001; 82140; 82248; 82803; 82977; 83010; 83605; 83615; 83690; 83735; 83915; 84484; 85025; 85379; 85384; 85610; 85730; 86850; 86900; 86901; 86920; 87040; 87077; 87086; 87186; 87635; 90935; 93005; 93306; 96361; 96365; 96375; 96376; 99291; 99292

== ENCOUNTER 2021-10-23 16:03 | Inpatient (IN) | payer MEDICAID ==
[2021-10-23] MEDS ORDERED: ONDANSETRON 4 MG/2 ML VIAL IVP PRN (16:05)
[2021-10-23] MEDS ORDERED: ACETAMINOPHEN SUPPOSITORY 650 MG SUPP RECTAL PRN (16:05)
[2021-10-23] MEDS ORDERED: LORazepam 2 MG/ML INJ IV PRN (16:05)
[2021-10-23] MEDS ORDERED: ATROPINE OPHTH SOLN 1% 5ML BTL SUBLINGUAL PRN (16:05)
[2021-10-23] MEDS ORDERED: MORPHINE SULFATE (100 MG/2 ML) 100 MG in SODIUM CHLORIDE 0.9% 100 ML IV SCH (16:15)
[2021-10-23 21:17] VITALS: BP 0/0; PULSE 28; RESP 0
== END 2021-10-23 20:15 | disposition expired | DRG 951 ==
LOC: 2SICU 16:28
PROVIDERS: ADMIT Internal Medicine; ATTEND Internal Medicine
DX: Z51.5 Encounter for palliative care (principal); R65.21 Severe sepsis with septic shock; D65 Disseminated intravascular coagulation [defibrination syndrome]; A41.9 Sepsis, unspecified organism; G93.41 Metabolic encephalopathy; N18.6 End stage renal disease; I12.0 Hypertensive chronic kidney disease with stage 5 chronic kidney disease or end stage renal disease; K92.2 Gastrointestinal hemorrhage, unspecified; I48.20 Chronic atrial fibrillation, unspecified; T87.89 Other complications of amputation stump; L97.519 Non-pressure chronic ulcer of other part of right foot with unspecified severity; E11.51 Type 2 diabetes mellitus with diabetic peripheral angiopathy without gangrene; E11.22 Type 2 diabetes mellitus with diabetic chronic kidney disease; E11.621 Type 2 diabetes mellitus with foot ulcer; Z99.2 Dependence on renal dialysis; E78.5 Hyperlipidemia, unspecified; E03.9 Hypothyroidism, unspecified; N40.0 Benign prostatic hyperplasia without lower urinary tract symptoms; H40.9 Unspecified glaucoma; R74.01 Elevation of levels of liver transaminase levels; Z79.01 Long term (current) use of anticoagulants; Z79.890 Hormone replacement therapy; Z79.4 Long term (current) use of insulin; Z79.899 Other long term (current) drug therapy; Z60.2 Problems related to living alone; Z86.19 Personal history of other infectious and parasitic diseases; Z87.19 Personal history of other diseases of the digestive system; Z98.890 Other specified postprocedural states; Z87.891 Personal history of nicotine dependence; Z82.49 Family history of ischemic heart disease and other diseases of the circulatory system; Z83.3 Family history of diabetes mellitus